=== PATIENT | female | born 1975 | race Two or more races ===

== ENCOUNTER 2020-06-02 15:55 | Emergency (ER) | payer MEDICAID, SELFPAY ==
[2020-06-02 16:18] VITALS: BP 133/82; PULSE 81; RESP 18; TEMP 36.9; O2SAT 100; BMI 23.8
[2020-06-02 17:06] LABS: Basophils Percent Auto 0.5 % (0-2); Eosinophils Absolute Auto 0.2 X10*3/uL (0.0-0.4); Eosinophils Percent Auto 2.8 % (0-4); Hematocrit 42.1 % (37-47); Hemoglobin 13.6 g/dl (12.0-16.0); Imm Gran Abs Auto 0.02 X10*3/uL (0.00-0.03); Imm Gran Pct Auto 0.3 % (0.0-0.4); Lymphocytes Absolute Auto 1.7 X10*3/uL (1.2-4.9); Lymphocytes Percent Auto 21.8 % (20-40); MANUAL DIFF FLAG NO; Mean Corpuscular HGB Conc 32.3 g/dl (31.0-35.0); Mean Corpuscular Hemoglobin 28.2 pg (27.0-33.0); Mean Corpuscular Volume 87.2 fL (80-98); Mean Platelet Volume 10.6 fL (9.4-12.3); Monocytes Absolute Auto 0.6 X10*3/uL (0.1-1.2); Monocytes Percent Auto 8.2 % (2-11); Neutrophils Absolute Auto 5.1 X10*3/uL (2.0-8.3); Neutrophils Percent Auto 66.4 % (45-73); Platelet Count 224 X10*3/uL (160-400); Red Blood Count 4.83 X10*6/uL (4.20-5.50); Red Cell Distribution Width 13.2 % (11.0-16.0); White Blood Count 7.7 X10*3/uL (4.8-10.8)
[2020-06-02 17:13] LABS: Glucose Urine UA NEG (NEG); Leukocyte Esterase Urine NEG (NEG); Nitrite Urine NEG (NEG); Specific Gravity - Urine >= 1.030 (1.005-1.025); Urine Blood TRACE (NEG); Urine Ketones 5 MG/DL (NEG); Urine Protein NEG (NEG-TRACE)
[2020-06-02 17:15] LABS: Appearance Urine CLEAR; Color Urine YELLOW
[2020-06-02 17:16] LABS: UPreg QC Valid YES; Urine Pregnancy NEGATIVE (NEGATIVE)
[2020-06-02 17:20] LABS: Bacteria Urine TRACE /LPF; Calcium Oxalate Crystals Urine 1+ /LPF; Squamous Epithelial Cell Urine 2+ /LPF; WBC Urine 0-2 /HPF (0-4)
[2020-06-02] MEDS: Magnesium Hydrox/Alum Hydrox 30 ML ORAL.SUSP PO (17:22)
--- NOTE | 2020-06-02 17:27 | PC.NURSE ---
MED WITH MAALOX FOR C/O ACID REFLUX.
--- NOTE | 2020-06-02 17:28 | ED.GENADULT ---
HPI - General Adult General Chief complaint: General Medical Stated complaint: arm pain Time Seen by Provider: 06/02/20 16:12 Source: patient Mode of arrival: ambulatory Limitations: no limitations History of Present Illness HPI narrative: States was doing some ADLs around the house suddenly started to feel numbness and tingling and started to hyperventilate like she was having a panic attack. States she had symptoms come out of nowhere however she has been increasingly stressed recently. She does have history of anxiety does take clonazepam. States she took 1 pill after episodes and symptoms have resolved at this time. No chest pain or shortness of breath. No recent illness. No cough runny nose. Onset (ago): minute(s) Severity: moderate Relieving factors: none Exacerbating factors: none Treatments prior to arrival: none Related Data Allergies Allergy/AdvReac Type Severity Reaction Status Date / Time No Known Allergies Allergy Verified 06/02/20 16:21 [No Known Allergies*] Review of Systems Review of Systems: Constitutional: No Weight loss, No Fever, No Chills, No Night Sweats, No Fatigue, No Malaise ENT/Mouth: No Hearing loss, No Ear Pain, No Nasal Congestion, No Sinus Pain, No Hoarseness, No sore throat, No Rhinorrhea, No Swallowing Difficulty Eyes: No Eye Pain, No Swelling, No Redness, No Foreign Body, No Discharge, No Vision Changes Cardiovascular: No Chest Pain, No SOB, No Dyspnea on Exertion, No Orthopnea, No Edema, No Palpitations Respiratory: No Cough, No Sputum, No Wheezing, No Smoke Exposure, No Dyspnea Gastrointestinal: No Nausea, No Vomiting, No Diarrhea, No Constipation, No abdominal Pain, No Hematochezia, No Melena Genitourinary: no irregular bleeding, No Dysuria, No Urinary Frequency, No Hematuria, No Urinary Incontinence, No Urgency, No Flank Pain Musculoskeletal: No joint pain, No Myalgias, No Joint Swelling Skin: No Skin Lesions, No rash Neuro: No Weakness, No Numbness, No Paresthesias, No Loss of Consciousness, No Dizziness, No Headache Psych: No Anxiety/Panic, No Depression, No SI/HI/AH/VH Heme/Lymph: No Bruising, No Bleeding,No Lymphadenopathy Endocrine: No Polyuria, No Polydipsia, No Temperature Intolerance Yes all other systems are reviewed and are negative [facility] Past Medical History Medical History (Updated 06/02/20 @ 17:39 by Sathish Pope NP) Anxiety Social History Social History Advance Directives: No Advance Directives Information Provided: No Physical Exam Vital Signs: Vital Signs: Last Vital Signs Temp 98.5 F 06/02/20 16:18 Pulse 81 06/02/20 16:18 Resp 18 06/02/20 16:18 BP 133/82 06/02/20 16:18 Pulse Ox 100 06/02/20 16:18 Body Mass Index 23.8 Reviewed Const: General: cooperative and healthy appearing; No acute distress or intoxicated appearing Nutritional Appearance: average body habitus Orientation/consciousness: patient oriented x3 HENMT: Head: Yes normal to inspection Ears: hearing grossly normal bilaterally Eyes: General: appearance normal, both eyes and all related structures Visual Katz: normal visual katz by confrontation Neck: Neck: Yes normal visual inspection, No positive Brudzinski's sign, No positive Kernig's sign and No tender Thyroid: Thyroid normal Chest: Chest palpation & inspection: normal inspection of the chest Resp: Effort & Inspection: normal respiratory effort Auscultation: clear to auscultation bilaterally Cardio: Jugular venous distension: no JVD Rhythm: regular rhythm Heart sounds: S1 normal heart sound present and S2 normal heart sound present GI: Inspection: Yes normal to inspection Palpation (GI): Soft to palpation Percussion: Yes normal to percussion Auscultation: normal bowel sounds : General: Yes no CVA tenderness Back/Spine/Pelvis: Back: no CVA tenderness Skin: General skin exam: no rashes or lesions noted Neuro: General: patient oriented x3 Extrem: General: Yes normal to inspection Course Course Course Narrative: Resting comfortably watching television Medical Decision Making Lab Data Result diagrams: 06/02/20 16:42 06/02/20 16:42 Labs: Lab Results 06/02/20 06/02/20 06/02/20 Range/Units 16:38 16:42 16:42 WBC 7.7 (4.8-10.8) X10*3/uL RBC 4.83 (4.20-5.50) X10*6/uL Hgb 13.6 (12.0-16.0) g/dl Hct 42.1 (37-47) % MCV 87.2 (80-98) fL MCH 28.2 (27.0-33.0) pg MCHC 32.3 (31.0-35.0) g/dl RDW 13.2 (11.0-16.0) % Plt Count 224 (160-400) X10*3/uL MPV 10.6 (9.4-12.3) fL Immature Gran % (Auto) 0.3 (0.0-0.4) % Neut % (Auto) 66.4 (45-73) % Lymph % (Auto) 21.8 (20-40) % [place] % (Auto) 8.2 (2-11) % Eos % (Auto) 2.8 (0-4) % Baso % (Auto) 0.5 (0-2) % Lymph # (Auto) 1.7 (1.2-4.9) X10*3/uL [place] # (Auto) 0.6 (0.1-1.2) X10*3/uL Eos # (Auto) 0.2 (0.0-0.4) X10*3/uL Baso # (Auto) 0.0 (0.0-0.2) X10*3/uL Abs Immat Gran (auto) 0.02 (0.00-0.03) X10*3/uL Absolute Neuts (auto) 5.1 (2.0-8.3) X10*3/uL Absolute Nucleated RBC 0.000 (0.0-0.012) X10*3/uL Nucleated RBC % (auto) 0.0 (0.0-0.2) /100WBC Sodium 139 (135-145) mmol/L Potassium 3.5 (3.3-5.1) mmol/l Chloride 103 (96-108) mmol/L Carbon Dioxide 27 (22-29) mmol/L Anion Gap 13 (12-20) BUN 14 (9-16) mg/dL Creatinine 0.77 (0.5-1.4) mg/dL Estim Creat Clear Calc 81.3 Estimated GFR > 60 Random Glucose 97 (60-115) mg/dL Calcium 9.2 (8.4-10.2) mg/dL Total Bilirubin 0.4 (0.0-1.0) mg/dL AST 16 (5-31) U/L ALT 17 (0-31) U/L Alkaline Phosphatase 87 (39-117) U/L Total Protein 6.9 (6.5-8.0) g/dL Albumin 4.3 (3.5-5.0) g/dL Urine Color YELLOW Urine Appearance CLEAR Urine pH 6.0 (5.0-8.0) Ur Specific [place] >= 1.030 H (1.005-1.025) Urine Protein NEG (NEG-TRACE) MG/DL Urine Glucose (UA) NEG (NEG) MG/DL Urine Ketones 5 (NEG) MG/DL Urine Blood TRACE (NEG) Urine Nitrite NEG (NEG) Ur Leukocyte Esterase NEG (NEG) Urine RBC 1-4 (0) /HPF Urine WBC 0-2 (0-4) /HPF Ur Squamous Epith Cells 2+ /LPF Calcium Oxalate Crystal 1+ /LPF Urine Bacteria TRACE /LPF Urine Test NEGATIVE (NEGATIVE) Discharge Plan Discharge Clinical Impression: Anxiety Patient Disposition: Home, Self-Care Instructions: Anxiety (ED) Additional Instructions: Supportive care Balanced diet [place] sleep cycle Avoid any caffeinated drinks or stimulants Take medication prescribed Return if any concerns or worsening symptoms otherwise follow up with primary care doctor instructed Thank you Referrals: Otilia Quiñones MD [Primary Care Provider] - 2 weeks
[2020-06-02 17:32] LABS: Alanine Aminotransferase 17 U/L (0-31); Albumin Level 4.3 g/dL (3.5-5.0); Alkaline Phosphatase 87 U/L (39-117); Anion Gap 13 (12-20); Aspartate Amino Transferase 16 U/L (5-31); Bilirubin Total 0.4 mg/dL (0.0-1.0); Blood Urea Nitrogen 14 mg/dL (9-16); Calcium 9.2 mg/dL (8.4-10.2); Carbon Dioxide 27 mmol/L (22-29); Chloride 103 mmol/L (96-108); Creatinine Clr Calc Pharmacy 81.3; Estimated Glomerular Filt Rate > 60; Glucose Random 97 mg/dL (60-115); Potassium 3.5 mmol/l (3.3-5.1); Sodium 139 mmol/L (135-145); Total Protein 6.9 g/dL (6.5-8.0)
[2020-06-02 17:41] LABS: Amphetamine Screen Urine Not Detected (Not Detect); Barbiturates, Urine Not Detected (Not Detect); Benzodiazepines Screen Urine Not Detected (Not Detect); Cannabinoid Screen Urine POSITIVE (Not Detect); Cocaine Screen Urine Not Detected (Not Detect); Opiate Screen Urine Not Detected (Not Detect); Phencyclidine Screen Urine Not Detected (Not Detect)
== END 2020-06-02 18:10 | disposition home or self-care (01) ==
PROVIDERS: Nurse Practitioner Primary Care; Emergency Provider Emergency Medicine Emergency Medical Services; PCP Pediatrics
DX: F41.1 Generalized anxiety disorder (principal); F43.0 Acute stress reaction; M79.602 Pain in left arm; M79.601 Pain in right arm
CPT/HCPCS: 36415; 80053; 80307; 81001; 81025; 85025; 99283; 99284

== ENCOUNTER → 2021-02-09 08:47 | Outpatient (BNVA) | payer MEDICAID, SELFPAY | PROVIDERS: PCP Pediatrics; Referring Provider Pediatrics; Visit Provider Surgery | DX: K64.4 Residual hemorrhoidal skin tags (principal); K64.8 Other hemorrhoids | CPT/HCPCS: 46600; 99202 ==

== ENCOUNTER 2023-01-04 10:32 | Outpatient (REF) | payer MEDICAID, SELFPAY ==
--- NOTE | ~2023-01-04 | MM_ITS ---
EXAMINATION: MM SCREENING DIGITAL BREAST TOMOSYNTHESIS, BILATERAL CLINICAL INFORMATION: Screening. Asymptomatic. The lifetime risk of breast cancer based on the Tyrer-Cuzick Model is 7.4%. COMPARISON: Mammography: This is a baseline study TECHNIQUE: Digital breast tomosynthesis is performed in both the craniocaudal and mediolateral oblique views along with computer-aided detection (CAD). Synthesized 2D images are generated from the tomosynthesis. FINDINGS: The breasts are heterogeneously dense, which may obscure small masses (ACR BI-RADS breast composition Category c). There are scattered calcifications in the upper outer quadrant of the left breast, some of the calcifications are in groups. Additional mammographic imaging of these calcifications with magnification is advised. There are grouped calcifications in the upper inner quadrant of the deep third of the right breast. Additional mammographic imaging with magnification of this region is advised. In the deep third of the upper inner quadrant of the left breast, there is a focal asymmetry for which additional mammographic imaging is advised. Targeted sonography may be performed at the discretion of the diagnostic radiologist. MM/MM tomosynthesis screening BI IMPRESSION: Bilateral calcifications warrant additional mammographic imaging magnification. Left breast focal asymmetry warrants additional mammographic imaging. ASSESSMENT: BI-RADS BI-RADS 0 - Incomplete: Needs additional Imaging. RECOMMENDATION: 1. Additional views of both breasts are advised. 2. Targeted ultrasound if warranted after review of the additional views. 3. Radiology department staff will contact the patient for additional imaging. Additional Imaging required This examination should not preclude the clinical evaluation of a suspicious palpable abnormality. This patient's information was entered into a reminder system with a target due date for their next mammogram.
== END 2023-01-04 10:33 | disposition home or self-care (01) ==
LOC: HO.MAMMO 10:32
PROVIDERS: PCP Pediatrics; Visit Provider Pediatrics
DX: Z12.31 Encounter for screening mammogram for malignant neoplasm of breast (principal)
CPT/HCPCS: 77063; 77067

== ENCOUNTER → 2023-01-04 11:00 | Outpatient (BNV) | payer MEDICAID, SELFPAY | PROVIDERS: PCP Pediatrics; Visit Provider Radiology Diagnostic Radiology | DX: Z12.31 Encounter for screening mammogram for malignant neoplasm of breast (principal) | CPT/HCPCS: 77063; 77067 ==

== ENCOUNTER 2023-02-12 11:16 | Outpatient (REF) | payer MEDICAID, SELFPAY ==
--- NOTE | ~2023-02-12 | US_ITS ---
EXAMINATION: MM DIAGNOSTIC DIGITAL BREAST TOMOSYNTHESIS, BILATERAL US BREAST LIMITED, LEFT MAMMOGRAPHY: CLINICAL INFORMATION: Patient has little information of family history of breast cancer. Complains of episodic breast pain. Bilateral diagnostic mammogram: Evaluate the following is seen on baseline screening exam: -Oval mass left breast 10:00 axis -Suspicious grouped calcifications upper inner LEFT breast, posterior one third. -Suspicious grouped calcifications 6:00 axis LEFT breast posterior one third. -Suspicious grouped calcifications (2 groups abutting) far medial upper RIGHT breast, posterior one third. COMPARISON: Mammography: Baseline screening mammography 01/04/2023 TECHNIQUE: Diagnostic bilateral mammography was obtained with the following views: Full-field 3-D left mediolateral view, 3-D spot compression left CC, and MLO views, as well as 2-D spot magnification left CC and ML views, and 2-D spot magnification right CC, XCCL, and ML views. FINDINGS: The breasts are heterogeneously dense, which may obscure small masses (ACR BI-RADS breast composition Category c). In the LEFT breast at the 10:00 axis, there is a 1.3 cm oval isodense circumscribed mass, 4 cm from the nipple. This will be evaluated by ultrasound. In the LEFT breast upper outer quadrant, posterior one third, there is a group of suspicious pleomorphic calcifications, for which stereotactic biopsy is recommended. In the LEFT breast 6:00 axis, posterior one third, there is a smaller group of suspicious pleomorphic calcifications, for which stereotactic biopsy is recommended. In the RIGHT breast, far medial and upper quadrant, posterior one third, there are 2 immediately abutting groups of pleomorphic calcifications for which stereotactic sampling of one group is recommended, at the discretion of the biopsy radiologist. These are presumably of the same etiology. There are scattered global calcifications in both breasts, some which layer on mediolateral views suggesting milk of calcium. ULTRASOUND: CLINICAL INFORMATION: Evaluate LEFT breast circumscribed 1.3 cm oval mass 10:00 axis. COMPARISON: None TECHNIQUE: Targeted sonographic evaluation left breast inner upper quadrant was performed using a high frequency linear transducer. Selected archived documentation. FINDINGS: LEFT BREAST: There is a simple cyst measuring 1.4 cm in the left breast 10:00 axis, 3 cm from the nipple, correlating with the abnormality seen on mammography. This is benign. No additional abnormalities noted. US/US breast LT limited mamm only IMPRESSION: 1. Bilateral suspicious indeterminate calcifications as detailed above, 2 groups in the left breast, and 2 abutting groups in the right breast, for which 3 site stereotactic biopsy (2 site LEFT, 1 site RIGHT) is recommended as detailed. 2. Simple cyst left breast, benign. 3. Findings and recommendations were discussed with the patient in detail, who agrees with the above plan. OVERALL ASSESSMENT: Mammography: BI-RADS 4 - Suspicious finding Ultrasound: BI-RADS 4 - Suspicious finding RECOMMENDATION: Biopsy recommended
== END 2023-02-12 11:17 | disposition home or self-care (01) ==
LOC: HO.MAMMO 11:16
PROVIDERS: PCP Pediatrics; Visit Provider Pediatrics
DX: R92.1 Mammographic calcification found on diagnostic imaging of breast (principal)
CPT/HCPCS: 76642; 77062; 77066

== ENCOUNTER → 2023-02-12 11:30 | Outpatient (BNV) | payer MEDICAID, SELFPAY | PROVIDERS: PCP Pediatrics; Visit Provider Radiology Diagnostic Radiology | DX: R92.1 Mammographic calcification found on diagnostic imaging of breast (principal); N60.02 Solitary cyst of left breast | CPT/HCPCS: 76642; 77062; 77066; G0279 ==

== ENCOUNTER 2023-03-01 09:11 | Outpatient (AMB) | payer MEDICAID, SELFPAY ==
--- NOTE | 2023-03-01 09:16 | MHC.OFFVIS ---
Intake Vital Signs 03/01/23 09:28 Height 5 ft 4 in Weight 142 lb 2 oz BMI 24.4 BP 119/66 Blood Pressure Location Lt brachial Position Sitting Pulse 82 Intake Visit Reasons: [facility] ST BX, RT 1 site, LT 2 sites - calcs Intake Note: Patient is seen in office for bilateral stereo biopsy consult, right 1 site & left 2 sites for calcifications. Patient c/o: does not feel lump or bump, has a dent on the right breast, has bilateral breast pain, denies redness, discharge, swelling, no prior breast surgery, no concerns to breast feeding Title I Teacher Required: No Psychiatric Attendant: Psychiatric Attendant Present Accompanied by: Other Relationship Allergies No Known Allergies [No Known Allergies*] Allergy (Verified 03/01/23 09:26) Medication List - Last Reconciled 03/01/23 by Yunier Bentley MD clonazepam 0.5 mg PO DAILY PRN HPI HPI Comments History of Present Illness Details 47-year-old female patient presenting with a baseline mammogram dated 01/04/2023 with additional images obtained 02/12/2023 which revealed bilateral suspicious cluster of calcifications. In the left breast 2 areas of suspicious calcification were identified in the 10 o'clock position and in the upper outer quadrant. In the right breast a suspicious cluster was noted in the upper outer quadrant as well. She reports bilateral breast pain which is been present for several months. She denies any skin changes or nipple discharge. She denies a previous history of breast problems or breast surgery. She is uncertain about family history but feels her grandmother had breast cancer. She is 3 para 4 including 1 set of twins. Her pregnancies were complicated by eclampsia. Her twins have special needs which require her care. She is scheduled for a stereotactic guided core biopsy x2 on the left side and x1 on the right side later today at the [facility]. [facility] Medical History Bleeding hemorrhoids Smoker Anxiety Surgical History History of tubal ligation H/O section Family History Maternal Grandmother Breast cancer Female Reproductive History Menstrual Age of Menarche: 14 Date of last menstrual period: 01/25/23 Total pregnancies: 4 Number of Living Children: 4 Review of Systems Const All systems reviewed & are unremarkable except as noted in HPI and below Denies chills, Denies fever(s), Denies headache(s), Denies poor appetite and Denies weakness ENT Denies headache(s) Card Denies chest pain, Denies irregular heart rhythm, Denies palpitations and Denies dyspnea Resp Denies cough, Denies excessive phlegm production and Denies dyspnea GI Denies abdominal pain, Denies bloating, Denies change in bowel habits, Denies constipation, Denies heartburn, Denies diarrhea, Denies nausea and Denies vomiting Denies urinary frequency Musc Denies back pain, Denies muscle weakness and Denies numbness Skin/Breast Denies changing lesions and Denies unusual bruising Neuro Denies headache(s), Denies numbness, Denies paresthesias and Denies weakness Psych Denies anxiety and Denies depression Endo Denies palpitations Wong/Lymph Denies lymphadenopathy Physical Exam Const General: cooperative and no acute distress Nutritional Appearance: well nourished Orientation/consciousness: patient oriented x3 Limitations: no limitations HEENT Head: Yes normocephalic and Yes atraumatic Ears: hearing grossly normal bilaterally Chest Other: Left breast: No skin change, no nipple retraction, no nipple discharge, no palpable mass, no enlarged lymph nodes. Right breast: No skin change, no nipple retraction, no nipple discharge, no palpable mass, no enlarged lymph nodes Bilateral areas of tenderness were noted mainly in the upper outer quadrants with no suspicious findings associated with the tenderness. Resp Effort & Inspection: normal respiratory effort, no audible wheezes, no cough and no respiratory distress Cardio Jugular venous distension: no JVD GI Inspection: Yes normal to inspection Skin Other: Warm, dry, no rash Neuro General: patient oriented x3 Extrem General: Yes no clubbing, cyanosis or edema Assessment & Plan Assessment & Plan (1) Abnormal mammogram of both breasts: Code(s): R92.8 - Other abnormal and inconclusive findings on diagnostic imaging of breast Plan 47-year-old female patient presenting with bilateral areas of suspicious calcifications felt to be high suspicion for malignancy. She is scheduled for bilateral stereotactic guided core biopsies later today at the [facility]. Examination today revealed no suspicious findings in either breast. I have asked her to return in 1 week to review the pathology results and discuss treatment options. She expressed understanding and agrees with the plan. Orders: Orders MM stereotactic biopsy RT Today R92.8 - Other abnormal and inconclusive findings on diagnostic imaging of breast MM stereotactic biopsy LT Today R92.8 - Other abnormal and inconclusive findings on diagnostic imaging of breast MM stereotactic biopsy ea add Today R92.8 - Other abnormal and inconclusive findings on diagnostic imaging of breast Coding Level of Care Code New Pt Level 4 (43557) Diagnoses Abnormal mammogram of both breasts R92.8
[2023-03-01 09:28] VITALS: BP 119/66; PULSE 82; BMI 24.4
== END 2023-03-01 09:45 | disposition home or self-care (01) ==
PROVIDERS: PCP Pediatrics; Visit Provider Surgery
DX: R92.8 Other abnormal and inconclusive findings on diagnostic imaging of breast (principal)
CPT/HCPCS: 99204

== ENCOUNTER 2023-03-01 09:53 | Outpatient (REF) | payer MEDICAID, SELFPAY ==
--- NOTE | ~2023-03-01 | MM_ITS ---
EXAMINATION: STEREOTACTIC TOMOSYNTHESIS-GUIDED VACUUM-ASSISTED BREAST BIOPSY, RIGHT SPECIMEN RADIOGRAPH, RIGHT POST PROCEDURE DIGITAL MAMMOGRAM, RIGHT CLINICAL INFORMATION: Suspicious calcifications posterior one third right breast approximate 3:00 axis. COMPARISON: 02/12/2023, 01/04/2023 TECHNIQUE/PROCEDURE: Informed consent was obtained from the patient after discussion of the benefits, risks, and alternatives to biopsy today. Patient appeared to understand. Gave opportunity for questions. Patient signed consent form. BIOPSY TABLE: [employer] Affirm Prone Biopsy System. LESION: Grouped slightly pleomorphic calcifications. LOCAL ANESTHESIA: 5 mL 1% lidocaine; 10 mL 1% lidocaine with epinephrine. DERMATOTOMY: Single skin mima dermatotomy performed. NEEDLE: [employer] 9-gauge vacuum assisted core biopsy device. APPROACH: craniocaudal. TARGETING: Combination of digital breast tomosynthesis and stereotactic digital mammography used for targeting. CORES: 7. CLIP: Top hat-shaped. SPECIMEN RADIOGRAPH: Specimen radiograph is taken in separate room using digital mammography. The index calcifications are in the excised cores. Only a couple residual calcifications remain adjacent to the clip. POST PROCEDURE UNILATERAL DIGITAL MAMMOGRAM: The post biopsy mammogram is performed in separate room using separate digital mammography equipment from the biopsy procedure. Right CC and ML views are taken. The breasts are heterogeneously dense, which may obscure small masses (breast composition category: c). The clip marker is in position. The calcifications near completely gone at the biopsy site. No gross hematoma. The patient tolerated the procedure well. No immediate complications. Home instructions reviewed with the patient. Final pathology results are pending. MM/MM stereotactic biopsy RT IMPRESSION: 1. Digital tomosynthesis-guided core biopsy right breast with clip placement. Nearly all of the index calcifications were removed. 2. Specimen radiograph taken and post procedure mammogram. There is satisfactory and accurate positioning of the top hat biopsy clip. 3. Final pathology results pending. An addendum report will be issued.
--- NOTE | ~2023-03-01 | MM_ITS ---
EXAMINATION: STEREOTACTIC TOMOSYNTHESIS-GUIDED VACUUM-ASSISTED BREAST BIOPSY, LEFT SPECIMEN RADIOGRAPH, LEFT POST PROCEDURE DIGITAL MAMMOGRAM, LEFT CLINICAL INFORMATION: Left breast with 2 SITES suspicious calcifications for biopsy, SITE A superiorly and laterally, SITE B medial slightly inferior left breast posterior one third. COMPARISON: 02/12/2023, 01/04/2023. TECHNIQUE/PROCEDURE: SITE A. Informed consent was obtained from the patient after discussion of the benefits, risks, and alternatives to biopsy today. Patient appeared to understand. Gave opportunity for questions. Patient signed consent form. BIOPSY TABLE: [employer] Affirm Prone Biopsy System. LESION: Pleomorphic microcalcifications upper outer left breast (SITE A). LOCAL ANESTHESIA: 5 mL 1% lidocaine; 10 mL 1% lidocaine with epinephrine. DERMATOTOMY: Single skin mima dermatotomy performed. NEEDLE: [employer] 9-gauge vacuum assisted core biopsy device. APPROACH: lateral medial. TARGETING: Combination of digital breast tomosynthesis and stereotactic digital mammography used for targeting. CORES: 7. CLIP: Top hat-shaped. SPECIMEN RADIOGRAPH: Specimen radiograph is taken in separate room using digital mammography. The nearly all index calcifications are in the excised cores. A few calcifications remain abutting the biopsy clip. POST PROCEDURE UNILATERAL DIGITAL MAMMOGRAM: The post biopsy mammogram is performed in separate room using separate digital mammography equipment from the biopsy procedure. CC and ML views are obtained. The breasts are heterogeneously dense, which may obscure small masses (breast composition category: c). The clip marker is in accurate and expected position. The calcifications are markedly decreased at the biopsy site. No gross hematoma. TECHNIQUE/PROCEDURE: SITE B. Informed consent was obtained from the patient after discussion of the benefits, risks, and alternatives to biopsy today. Patient appeared to understand. Gave opportunity for questions. Patient signed consent form. BIOPSY TABLE: [employer]ologic Affirm Prone Biopsy System. LESION: Small group of pleomorphic calcifications, lateral inferior left breast (SITE B). LOCAL ANESTHESIA: 3 mL 1% lidocaine; 5 mL 1% lidocaine with epinephrine. DERMATOTOMY: Single skin mima dermatotomy performed. NEEDLE: [employer] Eviva 9-gauge vacuum assisted core biopsy device. APPROACH: lateral medial. TARGETING: Combination of digital breast tomosynthesis and stereotactic digital mammography used for targeting. CORES: 5. CLIP: Cylinder-shaped. SPECIMEN RADIOGRAPH: Specimen radiograph is taken in separate room using digital mammography. The index calcifications are in the excised cores. Only a few tiny calcifications remain abutting the clip. POST PROCEDURE UNILATERAL DIGITAL MAMMOGRAM: The post biopsy mammogram is performed in separate room using separate digital mammography equipment from the biopsy procedure. Left CC and ML views are obtained. There are scattered areas of fibroglandular density (breast composition category: b). The clip marker is in position. The calcifications are markedly decreased at the biopsy site. No gross hematoma. The patient tolerated the procedure well. No immediate complications. Home instructions reviewed with the patient. Final pathology results are pending. MM/MM stereotactic biopsy ea add IMPRESSION: 1. Digital tomosynthesis-guided core biopsy 2 sites left breast with dual clip placement. 2. Specimen radiograph taken and post procedure mammogram. There is satisfactory and accurate positioning of the biopsy clip. 3. Final pathology results pending. An addendum report will be issued.
[2023-03-01] MEDS: Lidocaine HCl 1 % 20 ML VIAL 11 ML SUBCUT (12:46)
[2023-03-01] MEDS: Lidocaine HCl 1% PF/Epi 1:200,000 30 ML VIAL 47 ML SUBCUT (12:56)
[2023-03-01] MEDS: Sodium Bicarbonate 8.4% 50 MEQ/50 ML VIAL SUBCUT (12:57)
== END 2023-03-01 09:54 | disposition home or self-care (01) ==
LOC: HO.MAMMO 09:53
PROVIDERS: PCP Pediatrics; Visit Provider Surgery
DX: R92.8 Other abnormal and inconclusive findings on diagnostic imaging of breast (principal)
CPT/HCPCS: 19081; 19082; 88305; A4648

== ENCOUNTER → 2023-03-01 10:00 | Outpatient (BNV) | payer MEDICAID, SELFPAY | PROVIDERS: PCP Pediatrics; Visit Provider Radiology Diagnostic Radiology | DX: R92.1 Mammographic calcification found on diagnostic imaging of breast (principal); N60.21 Fibroadenosis of right breast | CPT/HCPCS: 19081; 19082 ==

== ENCOUNTER 2023-03-08 09:24 | Outpatient (AMB) | payer MEDICAID, SELFPAY ==
--- NOTE | 2023-03-08 09:36 | MHC.OFFVIS ---
Intake Vital Signs 03/08/23 09:49 Height 5 ft 4 in Weight 145 lb BMI 24.9 BP 107/67 Blood Pressure Location Lt brachial Pulse 73 Intake Visit Reasons: BX results RT 1 site, LT 2 sites - calcs Intake Note: Patient is seen in office for biopsy results of bilateral breast. Patient c/o: denies any concerns, here for results English Tutor Required: No Accompanied by: Self / Same As Patient Allergies No Known Allergies [No Known Allergies*] Allergy (Verified 03/08/23 09:48) HPI HPI Comments History of Present Illness Details 47-year-old female patient presenting with a baseline mammogram dated 01/04/2023 with additional images obtained 02/12/2023 which revealed bilateral suspicious cluster of calcifications. In the left breast 2 areas of suspicious calcification were identified in the 10 o'clock position and in the upper outer quadrant. In the right breast a suspicious cluster was noted in the upper outer quadrant as well. She reports bilateral breast pain which is been present for several months. She denies any skin changes or nipple discharge. She denies a previous history of breast problems or breast surgery. She is uncertain about family history but feels her grandmother had breast cancer. She is 3 para 4 including 1 set of twins. Her pregnancies were complicated by eclampsia. Her twins have special needs which require her care. She underwent stereotactic guided core biopsy times 3 and returns today to review pathology results. 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 She tolerated the procedure well and denies any ongoing breast symptoms. [facility] Medical History Bleeding hemorrhoids Smoker Anxiety Surgical History History of tubal ligation H/O section Family History Maternal Grandmother Breast cancer Female Reproductive History Menstrual Age of Menarche: 14 Review of Systems Const All systems reviewed & are unremarkable except as noted in HPI and below Denies chills, Denies fever(s), Denies headache(s), Denies poor appetite and Denies weakness ENT Denies headache(s) Card Denies chest pain, Denies irregular heart rhythm, Denies palpitations and Denies dyspnea Resp Denies cough, Denies excessive phlegm production and Denies dyspnea GI Denies abdominal pain, Denies bloating, Denies change in bowel habits, Denies constipation, Denies heartburn, Denies diarrhea, Denies nausea and Denies vomiting Denies urinary frequency Musc Denies back pain, Denies muscle weakness and Denies numbness Skin/Breast Denies changing lesions and Denies unusual bruising Neuro Denies headache(s), Denies numbness, Denies paresthesias and Denies weakness Psych Denies anxiety and Denies depression Endo Denies palpitations Wong/Lymph Denies lymphadenopathy Physical Exam Vital Signs: Last Vital Signs Pulse 73 03/08/23 09:49 BP 107/67 03/08/23 09:49 BMI result Body Mass Index 24.9 Const General: cooperative and no acute distress Nutritional Appearance: well nourished Orientation/consciousness: patient oriented x3 Limitations: no limitations HEENT Head: Yes normocephalic and Yes atraumatic Ears: hearing grossly normal bilaterally Chest Other: Exam deferred Resp Effort & Inspection: normal respiratory effort, no audible wheezes, no cough and no respiratory distress Cardio Jugular venous distension: no JVD GI Inspection: Yes normal to inspection Skin Other: Warm, dry, no rash Neuro General: patient oriented x3 Extrem General: Yes no clubbing, cyanosis or edema Assessment & Plan Assessment & Plan (1) Abnormal mammogram of both breasts: Code(s): R92.8 - Other abnormal and inconclusive findings on diagnostic imaging of breast Plan 47-year-old female patient presenting with bilateral areas of suspicious calcifications felt to be high suspicion for malignancy. She underwent bilateral stereotactic guided core biopsies last week at the [facility]. Pathology was reviewed with the patient today and a copy of the report provided. She tolerated the procedure well with no ongoing breast symptoms. She should follow up as needed. Coding Level of Care Code Est Pt Level 3 (33747) Diagnoses Abnormal mammogram of both breasts R92.8
[2023-03-08 09:49] VITALS: BP 107/67; PULSE 73; BMI 24.9
== END 2023-03-08 09:50 | disposition home or self-care (01) ==
PROVIDERS: PCP Pediatrics; Visit Provider Surgery
DX: R92.8 Other abnormal and inconclusive findings on diagnostic imaging of breast (principal)
CPT/HCPCS: 99213

== ENCOUNTER → 2023-03-08 09:24 | Outpatient (BNVA) | payer MEDICAID, SELFPAY | PROVIDERS: PCP Pediatrics; Visit Provider Surgery | DX: R92.8 Other abnormal and inconclusive findings on diagnostic imaging of breast (principal) | CPT/HCPCS: 99212 ==

== ENCOUNTER 2023-07-03 11:00 | Outpatient (REF) | payer MEDICAID, SELFPAY ==
[2023-07-03 14:26] LABS: MANUAL DIFF FLAG NO
[2023-07-03 14:30] LABS: Basophils Absolute Auto 0.1 X10*3/uL (0.0-0.2); Basophils Percent Auto 0.6 % (0-2); Eosinophils Absolute Auto 0.3 X10*3/uL (0.0-0.4); Hematocrit 39.5 % (37.0-47.0); Hemoglobin 12.9 g/dl (12.0-16.0); Imm Gran Abs Auto 0.03 X10*3/uL (0.00-0.03); Imm Gran Pct Auto 0.4 % (0.0-0.4); Lymphocytes Absolute Auto 1.7 X10*3/uL (1.2-4.9); Lymphocytes Percent Auto 19.6 % (20-40); Mean Corpuscular HGB Conc 32.7 g/dl (31.0-35.0); Mean Corpuscular Hemoglobin 26.9 pg (27.0-33.0); Mean Corpuscular Volume 82.5 fL (80.0-98.0); Mean Platelet Volume 11.9 fL (9.4-12.3); Monocytes Absolute Auto 0.6 X10*3/uL (0.1-1.2); Monocytes Percent Auto 7.5 % (2-11); Neutrophils Absolute Auto 5.8 x10*3/uL (2.0-8.3); Neutrophils Percent Auto 67.9 % (45-73); Platelet Count 201 X10*3/uL (160-400); Red Blood Count 4.79 X10*6/uL (4.20-5.50); Red Cell Distribution Width 14.1 % (11.0-16.0); White Blood Count 8.5 X10*3/uL (4.8-10.8)
[2023-07-04 04:14] LABS: HIV AB/AG Nonreactive (Nonreactive); HIV Num 1 0.04 S/CO (0.00-0.99); ~HepC Num1 0.15 S/CO (0.00-0.79); ~Hepatitis C Antibody Nonreactive (Nonreactive)
[2023-07-04 12:24] LABS: RPR Rapid Plasma Reagin NON-REACTIVE (NON-REACTIVE)
[2023-07-05 08:24] LABS: C. trachomatis RNA TMA NOT DETECTED (NOT DETECTED); N. gonorrhoeae RNA TMA NOT DETECTED (NOT DETECTED)
== END 2023-07-03 11:01 | disposition home or self-care (01) ==
LOC: HO.CHCLDS 11:00
PROVIDERS: Visit Provider Pediatrics
DX: Z11.3 Encounter for screening for infections with a predominantly sexual mode of transmission (principal)
CPT/HCPCS: 36415; 85025; 86592; 86803; 87389; 87491; 87591

== ENCOUNTER 2023-07-31 10:54 | Outpatient (AMB) | payer MEDICAID, SELFPAY ==
--- NOTE | 2023-07-31 11:03 | A.OFFVIS_ITS ---
Intake Vital Signs 07/31/23 11:07 Height 5 ft 4 in Weight 145 lb BMI 24.9 BP 109/70 Blood Pressure Location Lt brachial Position Sitting Pulse 84 Intake Visit Reasons: prolapsed hemorrhoids Intake Note: This patient presents for an assessment for prolapsed hemorrhoids. Pt c/o; reports pain, reports rectal bleeding. Web Design Instructor Required: No Accompanied by: Self / Same As Patient Allergies No Known Allergies [No Known Allergies*] Allergy (Verified 07/31/23 11:09) Medication List - Last Reconciled 07/31/23 by En Conrad MD clonazepam 0.5 mg PO DAILY PRN HPI prolapsed hemorrhoids HPI Details 48-year-old female here for chronic hemo rrhoid issues. I had actually seen her in 2020 for pain, bleeding and swelling over hemorrhoids. At that time, she had decided to undergo hemorrhoidectomy but she apparently had canceled this. She describes worsening of her had issues with frequent swelling and pain. She also occasionally bleeds She denies being constipated . She says she started to have hemorrhoid issues after she had about 16 years ago. She also says that hemorrhoids seemed to be much bigger now. [facility] Medical History (Updated 07/31/23 @ 11:41 by En Conrad MD) Prolapsed hemorrhoids Bleeding hemorrhoids Smoker Anxiety Surgical History History of tubal ligation H/O section Family History Maternal Grandmother Breast cancer Female Reproductive History Menstrual Age of Menarche: 14 Review of Systems Const Denies chills and Denies fever(s) Card Denies chest pain, Denies dyspnea and Denies dyspnea on exertion Resp Denies cough, Denies dyspnea and Denies dyspnea on exertion GI Reports hematochezia and Denies change in bowel habits Denies hematuria Musc Denies back pain and Denies limited range of motion Neuro Denies focal weakness and Denies convulsions Psych Denies depression and Denies mood swings Physical Exam Vital Signs: Last Vital Signs Pulse 84 07/31/23 11:07 BP 109/70 07/31/23 11:07 BMI result Body Mass Index 24.9 Const General: comfortable and no acute distress Orientation/consciousness: patient oriented x3 Neck Neck: Yes no lymphadenopathy Resp Auscultation: clear to auscultation bilaterally Cardio Rhythm: regular rhythm GI Other: rectal exam - large mixed hemorrhoids, external and prolapsed internal, multiple columns seen, digital exam deferred for now because of discomfort Palpation (GI): Soft to palpation, nontender and no guarding Neuro General: patient oriented x3 Assessment & Plan Assessment & Plan (1) Prolapsed hemorrhoids: Code(s): K64.8 - Other hemorrhoids Plan: She has large internal and external hemorrhoidal columns with prolapse, frequent pain, bleeding and swelling. She now wants to proceed with hemorrhoidectomy. I had a long discussion with her about the technique of exam under anesthesia and hemorrhoidectomy. I discussed the risks including but not limited to bleeding, infections, postop pain and poor healing, as well as the benefits and alternatives. I described to her what to expect postoperatively She says she wants to proceed with hemorrhoidectomy this time. Coding Level of Care Code Est Pt Level 3 (80820) Diagnoses Prolapsed hemorrhoids K64.8
[2023-07-31 11:07] VITALS: BP 109/70; PULSE 84; BMI 24.9
== END 2023-07-31 11:34 | disposition home or self-care (01) ==
PROVIDERS: PCP Pediatrics; Visit Provider Surgery
DX: K64.8 Other hemorrhoids (principal)
CPT/HCPCS: 99214

== ENCOUNTER → 2023-07-31 10:54 | Outpatient (BNVA) | payer MEDICAID, SELFPAY | PROVIDERS: PCP Pediatrics; Visit Provider Surgery | DX: K64.8 Other hemorrhoids (principal) | CPT/HCPCS: 99212 ==

== ENCOUNTER 2023-10-31 11:09 | Outpatient (REF) | payer MEDICAID, SELFPAY ==
[2023-10-31 14:36] LABS: MANUAL DIFF FLAG NO
[2023-10-31 14:47] LABS: Basophils Percent Auto 0.7 % (0-2); Eosinophils Absolute Auto 0.3 X10*3/uL (0.0-0.4); Eosinophils Percent Auto 5.2 % (0-4); Hematocrit 38.7 % (37.0-47.0); Hemoglobin 12.5 g/dl (12.0-16.0); Imm Gran Abs Auto 0.03 X10*3/uL (0.00-0.03); Imm Gran Pct Auto 0.5 % (0.0-0.4); Lymphocytes Absolute Auto 1.4 X10*3/uL (1.2-4.9); Lymphocytes Percent Auto 24.5 % (20-40); Mean Corpuscular HGB Conc 32.3 g/dl (31.0-35.0); Mean Corpuscular Hemoglobin 26.2 pg (27.0-33.0); Mean Platelet Volume 12.2 fL (9.4-12.3); Monocytes Absolute Auto 0.4 X10*3/uL (0.1-1.2); Monocytes Percent Auto 6.8 % (2-11); Neutrophils Absolute Auto 3.5 x10*3/uL (2.0-8.3); Neutrophils Percent Auto 62.3 % (45-73); Platelet Count 219 X10*3/uL (160-400); Red Blood Count 4.78 X10*6/uL (4.20-5.50); Red Cell Distribution Width 14.6 % (11.0-16.0); White Blood Count 5.6 X10*3/uL (4.8-10.8)
[2023-10-31 15:13] LABS: Anion Gap 11 (12-20); Blood Urea Nitrogen 8 mg/dL (9-16); Calcium 9.5 mg/dL (8.4-10.2); Carbon Dioxide 27 mmol/L (22-29); Chloride 105 mmol/L (96-108); Cholesterol 137 mg/dL (<200); Estimated Glomerular Filt Rate > 60; Glucose Fasting 89 mg/dL (60-99); HDL Cholesterol 48 mg/dL (>40); LDL Cholesterol Calculated 72 mg/dL (<100); Potassium 4.3 mmol/L (3.3-5.1); Sodium 139 mmol/L (135-145); Triglycerides 89 mg/dL (<150)
[2023-10-31 15:32] LABS: TSH reflex Free T4 0.39 uIU/mL (0.32-4.0); Vitamin D 25-OH Total 24.9 ng/mL (>30)
[2023-10-31 16:10] LABS: CT PCR NOT DETECTED (Not Detect.); NG PCR NOT DETECTED (Not Detect.)
[2023-11-01 08:13] LABS: HIV AB/AG Nonreactive (Nonreactive); HIV Num 1 0.06 S/CO (0.00-0.99); ~Hepatitis C Antibody Nonreactive (Nonreactive)
[2023-11-01 08:19] LABS: Syphilis Screen Nonreactive (Nonreactive)
== END 2023-10-31 11:10 | disposition home or self-care (01) ==
LOC: HO.CHCLDS 11:09
PROVIDERS: Visit Provider Pediatrics
DX: Z11.3 Encounter for screening for infections with a predominantly sexual mode of transmission (principal); E55.9 Vitamin D deficiency, unspecified; K64.8 Other hemorrhoids; I83.893 Varicose veins of bilateral lower extremities with other complications
CPT/HCPCS: 0353U; 36415; 80048; 80061; 82306; 84443; 85025; 86780; 86803; 87389

== ENCOUNTER 2024-04-16 10:52 | Emergency (ER) | payer MEDICAID, SELFPAY ==
--- NOTE | ~2024-04-16 | XR_ITS ---
EXAMINATION: XR CERVICAL SPINE CLINICAL INFORMATION: Neck pain. COMPARISON: None available. TECHNIQUE: AP, lateral, open-mouth, and foraminal views of the cervical spine were obtained. FINDINGS: Straightening of the normal cervical lordosis which may be positional related to muscular spasm. No acute fracture or subluxation. Normal atlantoaxial alignment. Minimal loss of intervertebral disc height with anterior endplate osteophytes at C3-C6. No concerning lytic or blastic osseous lesion. Unremarkable prevertebral soft tissues. XR/XR cervical spine 3V IMPRESSION: 1. Straightening of the normal cervical lordosis which may be positional related to muscular spasm. 2. Mild degenerative disc disease at C3-C6. Electronically signed by: Randy Maria MD 04/16/2024 03:08 PM [facility] [place]
--- NOTE | ~2024-04-16 | XR_ITS ---
EXAMINATION: XR CHEST 2 VIEW CLINICAL INFORMATION: Chest pain COMPARISON: 08/27/2013 TECHNIQUE: PA and lateral views of the chest obtained. FINDINGS: The lungs are clear. There are no pleural effusions. The cardiomediastinal silhouette is normal. XR/XR chest 2V IMPRESSION: No acute cardiopulmonary disease. Electronically signed by: Ike Roman MD 04/16/2024 02:08 PM [facility] [place]
--- NOTE | ~2024-04-16 | XR_ITS ---
EXAMINATION: XR THORACIC SPINE CLINICAL INFORMATION: Upper back pain. COMPARISON: None available. TECHNIQUE: 3 views of the thoracic spine were obtained. FINDINGS: There is no fracture or bone destruction seen and the vertebral alignment is normal. There is no disc space narrowing. There is no abnormality of the paraspinal soft tissues. XR/XR thoracic spine 3V IMPRESSION: Unremarkable examination. Electronically signed by: Randy Maria MD 04/16/2024 02:42 PM [facility]
--- NOTE | 2024-04-16 10:53 | ECG_ITS ---
Test Reason : chest pain Blood Pressure : / mmHG Vent. Rate : 062 BPM Atrial Rate : 062 BPM P-R Int : 142 ms QRS Dur : 086 ms QT Int : 418 ms P-R-T Axes : 073 049 039 degrees QTc Int : 424 ms Normal sinus rhythm Possible Left atrial enlargement Borderline ECG When compared with ECG of 27-AUG-2013 09:21, No significant change was found Referred By: Generic ED Physician Electronically Signed By:Marvin Mckenzie
[2024-04-16 11:11] VITALS: BP 125/79; PULSE 73; RESP 20; TEMP 36.6; O2SAT 100; BMI 25.7
--- NOTE | 2024-04-16 11:12 | ED_ITS ---
HPI - Chest Pain General Chief Complaint: Chest Pain Stated Complaint: cp Related Data Home Medications ?Medication ?Instructions ?Recorded ?Confirmed clonazepam 0.5 mg tablet 0.5 mg PO DAILY PRN anxiety attack 02/09/21 03/01/23 Previous Rx's ?Medication ?Instructions ?Recorded omeprazole 40 mg capsule,delayed 40 mg PO DAILY #20 caps 04/24/24 release ondansetron 4 mg disintegrating 4 mg PO Q6-8H PRN nausea and 04/24/24 tablet vomiting #7 tabs Allergies Allergy/AdvReac Type Severity Reaction Status Date / Time No Known Allergies Allergy Verified 04/23/24 20:19 [No Known Allergies*] [facility] Past Medical History Medical History Prolapsed hemorrhoids Bleeding hemorrhoids Smoker Anxiety Surgical History History of tubal ligation H/O section Family History Family History Maternal Grandmother Breast cancer Social History Social History Smoked in Last 30 Days: Yes Use of substances other than those prescribed or required for medical reasons: Yes Substance Use Type: Marijuana Substance Use Frequency Other:: quit smoking Marijuana about 3 weeks ago Advance Directives: No Advance Directives Information Provided: No Do you have a plan to hurt others: No Plan Physical Exam 2 Vital Signs: Vital Signs: Last Vital Signs Temp 97.8 F 04/16/24 11:11 Pulse 73 04/16/24 11:11 Resp 20 04/16/24 11:11 BP 125/79 04/16/24 11:11 Pulse Ox 100 04/16/24 11:11 O2 Del Method Room Air 04/16/24 11:11 BMI result Body Mass Index 25.7 Course Course Course Narrative: This is a Rapid Medical Exam performed in triage by Melissa Mascorro PA-C. Full HPI, ROS and PE to be performed by primary ED provider. 48-year-old female presenting to the ED c/o chest pain/pressure radiating to back and left side of neck x1 year worse x yesterday. tried Bengay w/o relief. denies recent neck manipulation/MVA/chiropractor. States saw PCP last week and was told they were going to obtain x-rays PE: Pain not reproducible on exam. Plan: EKG, labs, x-rays Medical Decision Making Lab Data 04/16/24 11:27 04/16/24 11:27 Labs: Lab Results 04/16/24 Range/Units 11:27 WBC 7.8 (4.8-10.8) X10*3/uL RBC 5.02 (4.20-5.50) X10*6/uL Hgb 12.9 (12.0-16.0) g/dl Hct 40.1 (37.0-47.0) % MCV 79.9 L (80.0-98.0) fL MCH 25.7 L (27.0-33.0) pg MCHC 32.2 (31.0-35.0) g/dl RDW 14.3 (11.0-16.0) % Plt Count 189 (160-400) X10*3/uL MPV 10.9 (9.4-12.3) fL Immature Gran % (Auto) 0.3 (0.0-0.4) % Neut % (Auto) 72.9 (45-73) % Lymph % (Auto) 16.4 L (20-40) % [place] % (Auto) 6.3 (2-11) % Eos % (Auto) 3.6 (0-4) % Baso % (Auto) 0.5 (0-2) % Lymph # (Auto) 1.3 (1.2-4.9) X10*3/uL [place] # (Auto) 0.5 (0.1-1.2) X10*3/uL Eos # (Auto) 0.3 (0.0-0.4) X10*3/uL Baso # (Auto) 0.0 (0.0-0.2) X10*3/uL Abs Immat Gran (auto) 0.02 (0.00-0.03) X10*3/uL Absolute Neuts (auto) 5.7 (2.0-8.3) x10*3/uL Absolute Nucleated RBC 0.000 (0.0-0.012) X10*3/uL Nucleated RBC % (auto) 0.0 (0.0-0.2) /100WBC Sodium 135 (135-145) mmol/L Potassium 3.9 (3.3-5.1) mmol/L Chloride 105 (96-108) mmol/L Carbon Dioxide 24 (22-29) mmol/L Anion Gap 10 L (12-20) BUN 9 (9-16) mg/dL Creatinine 0.69 (0.5-1.4) mg/dL Estim Creat Clear Calc 91.9 Estimated GFR > 60 Random Glucose 95 (60-115) mg/dL Calcium 8.9 D (8.4-10.2) mg/dL Troponin I High Sens < 2.7 (<3.5-17.0) ng/L Discharge Plan Discharge Clinical Impression: Chest pain Patient Disposition: Left W/O Completing Treatment Prescriptions: No Action omeprazole 40 mg capsule,delayed release(DR/EC) 40 mg PO DAILY Qty: 20 0RF ondansetron 4 mg tablet,disintegrating 4 mg PO Q6-8H PRN (Reason: nausea and vomiting) Qty: 7 0RF clonazepam 0.5 mg tablet 0.5 mg PO DAILY PRN (Reason: anxiety attack) Discharge Date/Time: 04/16/24 16:48
[2024-04-16 11:32] LABS: MANUAL DIFF FLAG NO
[2024-04-16 11:36] LABS: Basophils Percent Auto 0.5 % (0-2); Eosinophils Absolute Auto 0.3 X10*3/uL (0.0-0.4); Eosinophils Percent Auto 3.6 % (0-4); Hematocrit 40.1 % (37.0-47.0); Hemoglobin 12.9 g/dl (12.0-16.0); Imm Gran Abs Auto 0.02 X10*3/uL (0.00-0.03); Imm Gran Pct Auto 0.3 % (0.0-0.4); Lymphocytes Absolute Auto 1.3 X10*3/uL (1.2-4.9); Lymphocytes Percent Auto 16.4 % (20-40); Mean Corpuscular HGB Conc 32.2 g/dl (31.0-35.0); Mean Corpuscular Hemoglobin 25.7 pg (27.0-33.0); Mean Corpuscular Volume 79.9 fL (80.0-98.0); Mean Platelet Volume 10.9 fL (9.4-12.3); Monocytes Absolute Auto 0.5 X10*3/uL (0.1-1.2); Monocytes Percent Auto 6.3 % (2-11); Neutrophils Absolute Auto 5.7 x10*3/uL (2.0-8.3); Neutrophils Percent Auto 72.9 % (45-73); Platelet Count 189 X10*3/uL (160-400); Red Blood Count 5.02 X10*6/uL (4.20-5.50); Red Cell Distribution Width 14.3 % (11.0-16.0); White Blood Count 7.8 X10*3/uL (4.8-10.8)
[2024-04-16 11:50] LABS: Anion Gap 10 (12-20); Blood Urea Nitrogen 9 mg/dL (9-16); Calcium 8.9 mg/dL (8.4-10.2); Carbon Dioxide 24 mmol/L (22-29); Chloride 105 mmol/L (96-108); Creatinine Clr Calc Pharmacy 91.9; Estimated Glomerular Filt Rate > 60; Glucose Random 95 mg/dL (60-115); Potassium 3.9 mmol/L (3.3-5.1); Sodium 135 mmol/L (135-145)
[2024-04-16 11:55] LABS: Troponin-I High Sensitivity < 2.7 ng/L (<3.5-17.0)
== END 2024-04-16 16:48 | disposition left against medical advice (07) ==
PROVIDERS: Physician Assistant; Emergency Provider Student in an Organized Health Care Education/Training Program; PCP Pediatrics
DX: R07.89 Other chest pain (principal); M54.2 Cervicalgia; M54.6 Pain in thoracic spine; Z87.891 Personal history of nicotine dependence; Z79.899 Other long term (current) drug therapy
CPT/HCPCS: 36415; 71046; 72040; 72072; 80048; 84484; 85025; 93005; 99281; 99283

== ENCOUNTER → 2024-04-16 10:53 | Outpatient (BNV) | payer MEDICAID, SELFPAY | PROVIDERS: Emergency Provider Student in an Organized Health Care Education/Training Program; PCP Pediatrics; Visit Provider Internal Medicine Cardiovascular Disease | DX: R07.9 Chest pain, unspecified (principal); R94.31 Abnormal electrocardiogram [ECG] [EKG] | CPT/HCPCS: 93010 ==

== ENCOUNTER 2024-04-23 20:06 | Emergency (ER) | payer MEDICAID, SELFPAY ==
--- NOTE | 2024-04-23 | ECG_ITS ---
Test Reason : CHEST PAIN/ABD PAIN Blood Pressure : / mmHG Vent. Rate : 070 BPM Atrial Rate : 070 BPM P-R Int : 154 ms QRS Dur : 088 ms QT Int : 428 ms P-R-T Axes : 069 062 054 degrees QTc Int : 462 ms Normal sinus rhythm Possible Left atrial enlargement Borderline ECG When compared with ECG of 16-APR-2024 10:55, No significant change was found Referred By: Reinier Boyd Electronically Signed By:TAIWO MARTINEZ MD
--- NOTE | ~2024-04-23 | US_ITS ---
EXAMINATION: US ABDOMEN LIMITED CLINICAL INFORMATION: Upper abdominal pain. COMPARISON: None available. TECHNIQUE: Real-time imaging of the right upper quadrant abdominal viscera. FINDINGS: GALLBLADDER: The gallbladder is physiologically distended without evidence of stones, sludge, polyps, wall thickening or pericholecystic fluid. Marcelo's sign is negative COMMON BILE DUCT: Normal in caliber measuring 0.5 cm in diameter. US/US abdomen limited IMPRESSION: Normal-appearing gallbladder. Electronically signed by: Portillo Mcduffie MD 04/23/2024 11:02 PM [facility]
[2024-04-23 20:15] VITALS: BP 157/93; BP 168/89; PULSE 72; PULSE 75; RESP 16; TEMP 36.9; O2SAT 97; O2SAT 98; BMI 25.5
--- NOTE | 2024-04-23 20:22 | ED.ABDPAIN ---
HPI - Abdominal Pain General Chief Complaint: Abdominal Pain Stated Complaint: chest pain,abd pain,vomiting Time Seen by Provider: 04/23/24 20:12 Source: patient Mode of arrival: ambulatory Limitations: no limitations History of Present Illness ED Provider: sheldon OBANDO narrative: patient complaining of epigastric pain for last 1 week nausea and started vomiting since 3 p.m.multiple times no history of peptic ulcer disease no history of gallstone patient was having burning and chest for last 1 not on any PPI does have history of anxiety Related Data Home Medications ?Medication ?Instructions ?Recorded ?Confirmed clonazepam 0.5 mg tablet 0.5 mg PO DAILY PRN anxiety attack 02/09/21 03/01/23 Previous Rx's ?Medication ?Instructions ?Recorded omeprazole 40 mg capsule,delayed 40 mg PO DAILY #20 caps 04/24/24 release ondansetron 4 mg disintegrating 4 mg PO Q6-8H PRN nausea and 04/24/24 tablet vomiting #7 tabs Allergies Allergy/AdvReac Type Severity Reaction Status Date / Time No Known Allergies Allergy Verified 04/23/24 20:19 [No Known Allergies*] Review of Systems Review of Systems Yes all other systems are reviewed and are negative PMF Past Medical History Medical History Prolapsed hemorrhoids Bleeding hemorrhoids Smoker Anxiety Surgical History History of tubal ligation H/O section Family History Family History Maternal Grandmother Breast cancer Social History Social History Smoked in Last 30 Days: Yes Use of substances other than those prescribed or required for medical reasons: Yes Substance Use Type: Marijuana Substance Use Frequency Other:: quit smoking Marijuana about 3 weeks ago Advance Directives: No Advance Directives Information Provided: No Do you have a plan to hurt others: No Plan Physical Exam ED Vital Signs: Vital Signs - 24 hr 04/23/24 20:15 04/23/24 23:39 04/24/24 00:49 Temperature 98.5 F 98.4 F 98.4 F Pulse Rate 72 77 77 Respiratory Rate 16 14 14 Blood Pressure 157/93 H 95/59 L 95/59 L Pulse Oximetry 98 98 98 Oxygen Delivery Method Room Air Room Air Room Air BMI result Body Mass Index 25.5 Appearance: Alert. Oriented X3. No acute distress. Eyes: no pallor or icterus ENT: Pharynx normal. Oral Mucosa moist Neck: Normal inspection. Neck supple. CVS: Normal heart rate and rhythm. Pulses normal. Respiratory: No respiratory distress. Equal air entry bilateral, no wheezing/rales/rhonchi Abdomen: Soft and tenderness in right upper quadrant and epigastric area no rebound tenderness or guarding Bowel sounds are present, no mass palpable, no CVA tenderness Skin: Skin warm and dry. Normal skin color. Normal skin turgor. Extremities: No lower extremity edema. No calf tenderness Neuro: Oriented X 3. Medical Decision Making Medical Decision Making [facility] Narrative: patient has epigastric pain with history of anxiety ultrasound negative for any acute pathology will discharge patient home on Prilosec for gastric Differential Diagnosis Differential Diagnoses: The differential diagnosis associated with the presentation includes gastritis/pancreatitis/UTI / anxiety Lab Data [facility] Lab Attestation statement: I reviewed the patient's lab results. 04/23/24 20:51 04/23/24 20:51 Labs: Lab Results 04/23/24 04/24/24 Range/Units 20:51 00:22 WBC 7.6 (4.8-10.8) X10*3/uL RBC 4.61 (4.20-5.50) X10*6/uL Hgb 12.2 (12.0-16.0) g/dl Hct 36.2 L (37.0-47.0) % MCV 78.5 L (80.0-98.0) fL MCH 26.5 L (27.0-33.0) pg MCHC 33.7 (31.0-35.0) g/dl RDW 14.1 (11.0-16.0) % Plt Count 189 (160-400) X10*3/uL MPV 11.1 (9.4-12.3) fL Immature Gran % (Auto) 0.4 (0.0-0.4) % Neut % (Auto) 87.7 H (45-73) % Lymph % (Auto) 7.5 L (20-40) % [place] % (Auto) 3.8 (2-11) % Eos % (Auto) 0.3 (0-4) % Baso % (Auto) 0.3 (0-2) % Lymph # (Auto) 0.6 L (1.2-4.9) X10*3/uL [place] # (Auto) 0.3 (0.1-1.2) X10*3/uL Eos # (Auto) 0.0 (0.0-0.4) X10*3/uL Baso # (Auto) 0.0 (0.0-0.2) X10*3/uL Abs Immat Gran (auto) 0.03 (0.00-0.03) X10*3/uL Absolute Neuts (auto) 6.6 (2.0-8.3) x10*3/uL Absolute Nucleated RBC 0.000 (0.0-0.012) X10*3/uL Nucleated RBC % (auto) 0.0 (0.0-0.2) /100WBC Sodium 138 (135-145) mmol/L Potassium 3.3 (3.3-5.1) mmol/L Chloride 105 (96-108) mmol/L Carbon Dioxide 23 (22-29) mmol/L Anion Gap 13 (12-20) BUN 9 (9-16) mg/dL Creatinine 0.65 (0.5-1.4) mg/dL Estim Creat Clear Calc 97.2 Estimated GFR > 60 Random Glucose 128 H (60-115) mg/dL Calcium 9.5 D (8.4-10.2) mg/dL Total Bilirubin 0.5 (0.0-1.0) mg/dL AST 17 (5-31) U/L ALT 12 (0-31) U/L Alkaline Phosphatase 73 (39-117) U/L Troponin I High Sens < 2.7 (<3.5-17.0) ng/L Total Protein 7.1 (6.5-8.0) g/dL Albumin 4.3 (3.5-5.0) g/dL Urine Color Yellow Urine Appearance Clear Urine pH 6.0 (5.0-9.0) Ur Specific [place] >= 1.030 H (1.005-1.025) Urine Protein 30 (1+) H (Neg-Trace) mg/dL Urine Glucose (UA) Negative (Negative) mg/dL Urine Ketones >=160 (Negative) mg/dL Urine Blood Moderate (2+) H (Negative) Urine Nitrite Negative (Negative) Ur Leukocyte Esterase Negative (Negative) Urine RBC 3-5 H (0-2) /HPF Urine WBC 0-5 (0-5) /HPF Ur Squamous Epith Cells 3-5 (0-2) /HPF Urine Bacteria Trace (None Seen) Hyaline Casts 0-2 (0-2) /LPF Urine Opiates Screen POSITIVE H (Not Detect) Ur Buprenorphine Scrn Not Detected (Not Detect) ng/mL Ur Oxycodone Screen Not Detected (Not Detect) ng/mL Urine Methadone Screen Not Detected (Not Detect) ng/mL Urine Fentanyl Screen Not Detected (Not Detect) Ur Barbiturates Screen Not Detected (Not Detect) Ur Phencyclidine Scrn Not Detected (Not Detect) Ur Amphetamines Screen Not Detected (Not Detect) U Benzodiazepines Scrn Not Detected (Not Detect) Urine Cocaine Screen Not Detected (Not Detect) U Marijuana (THC) Screen POSITIVE H (Not Detect) Independent Interpretation I performed an independent interpretation of an: Ultrasound Radiology Impression Discussion of test interpretation with radiology: I have reviewed the radiologist's reading. Radiologist Impression: US/US abdomen limited IMPRESSION: Normal-appearing gallbladder. Electronically signed by: Portillo Mcduffie MD 04/23/2024 11:02 PM [facility] [place]ations Administered Discontinued Medications Generic Name Dose Route Start Last Admin Trade Name Freq PRN Reason Stop Dose Admin Sodium Chloride 1,000 mls @ 999 mls/hr 04/23/24 21:11 04/23/24 22:53 Ns IV 04/23/24 22:11 Infused .Q1H1M ONE Infusion Morphine Sulfate 4 mg 04/23/24 21:11 04/23/24 21:19 Morphine Sulfate 4 Mg/Ml Cartridge IVPUSH 04/23/24 21:12 4 mg ONCE ONE Administration Protocol Ondansetron HCl 4 mg 04/23/24 21:11 04/23/24 21:19 Ondansetron Hcl 4 Mg/2 Ml Vial IVPUSH 04/23/24 21:12 4 mg ONCE ONE Administration Discharge Plan Discharge Clinical Impression: Gastritis Patient Disposition: Home, Self-Care Instructions: Gastritis (ED) Additional Instructions: your ultrasound is negative for gallstones take Prilosec daily avoid fried and spicy food Medicine for nausea as prescribed Prescriptions: New omeprazole 40 mg capsule,delayed release(DR/EC) 40 mg PO DAILY Qty: 20 0RF ondansetron 4 mg tablet,disintegrating 4 mg PO Q6-8H PRN (Reason: nausea and vomiting) Qty: 7 0RF No Action clonazepam 0.5 mg tablet 0.5 mg PO DAILY PRN (Reason: anxiety attack) Interventions: ED Discharge Assessment Last Done: 04/24/24 00:49 Discharge Date/Time: 04/24/24 00:50 Print Language: Polish
[2024-04-23 21:03] LABS: MANUAL DIFF FLAG NO
[2024-04-23 21:04] LABS: Basophils Percent Auto 0.3 % (0-2); Eosinophils Percent Auto 0.3 % (0-4); Hematocrit 36.2 % (37.0-47.0); Hemoglobin 12.2 g/dl (12.0-16.0); Imm Gran Abs Auto 0.03 X10*3/uL (0.00-0.03); Imm Gran Pct Auto 0.4 % (0.0-0.4); Lymphocytes Absolute Auto 0.6 X10*3/uL (1.2-4.9); Lymphocytes Percent Auto 7.5 % (20-40); Mean Corpuscular HGB Conc 33.7 g/dl (31.0-35.0); Mean Corpuscular Hemoglobin 26.5 pg (27.0-33.0); Mean Corpuscular Volume 78.5 fL (80.0-98.0); Mean Platelet Volume 11.1 fL (9.4-12.3); Monocytes Absolute Auto 0.3 X10*3/uL (0.1-1.2); Monocytes Percent Auto 3.8 % (2-11); Neutrophils Absolute Auto 6.6 x10*3/uL (2.0-8.3); Neutrophils Percent Auto 87.7 % (45-73); Platelet Count 189 X10*3/uL (160-400); Red Blood Count 4.61 X10*6/uL (4.20-5.50); Red Cell Distribution Width 14.1 % (11.0-16.0); White Blood Count 7.6 X10*3/uL (4.8-10.8)
[2024-04-23] MEDS: 0.9 % Sodium Chloride 1,000 ML 999 ML IV (21:19)
[2024-04-23] MEDS: Morphine Sulfate 4 MG/ML CARTRIDGE IVPUSH (21:19)
[2024-04-23] MEDS: ondansetron HCL 4 MG/2 ML VIAL IVPUSH (21:19)
[2024-04-23 21:34] LABS: Alanine Aminotransferase 12 U/L (0-31); Albumin Level 4.3 g/dL (3.5-5.0); Alkaline Phosphatase 73 U/L (39-117); Anion Gap 13 (12-20); Aspartate Amino Transferase 17 U/L (5-31); Bilirubin Total 0.5 mg/dL (0.0-1.0); Blood Urea Nitrogen 9 mg/dL (9-16); Calcium 9.5 mg/dL (8.4-10.2); Carbon Dioxide 23 mmol/L (22-29); Chloride 105 mmol/L (96-108); Creatinine Clr Calc Pharmacy 97.2; Estimated Glomerular Filt Rate > 60; Glucose Random 128 mg/dL (60-115); Potassium 3.3 mmol/L (3.3-5.1); Sodium 138 mmol/L (135-145); Total Protein 7.1 g/dL (6.5-8.0)
[2024-04-23 21:35] LABS: Troponin-I High Sensitivity < 2.7 ng/L (<3.5-17.0)
[2024-04-23 23:39] VITALS: BP 95/59; PULSE 77; RESP 14; TEMP 36.9; O2SAT 98
[2024-04-24 00:29] LABS: Appearance Urine Clear; Color Urine Yellow; Glucose Urine UA Negative (Negative); Leukocyte Esterase Urine Negative (Negative); Nitrite Urine Negative (Negative); Specific Gravity - Urine >= 1.030 (1.005-1.025); UMIC TRIGGER UACC YES; Urine Blood Moderate (2+) (Negative); Urine Ketones >=160 mg/dL (Negative); Urine Protein 30 (1+) mg/dL (Neg-Trace)
[2024-04-24 00:38] LABS: Amphetamine Screen Urine Not Detected (Not Detect); Barbiturates, Urine Not Detected (Not Detect); Benzodiazepines Screen Urine Not Detected (Not Detect); Buprenorphine Scr Not Detected (Not Detect); Cannabinoid Screen Urine POSITIVE (Not Detect); Cocaine Screen Urine Not Detected (Not Detect); Fentanyl, urine Not Detected (Not Detect); Methadone Screen, Urine Not Detected (Not Detect); Opiate Screen Urine POSITIVE (Not Detect); Oxycodone Screen Urine Not Detected (Not Detect); Phencyclidine Screen Urine Not Detected (Not Detect)
[2024-04-24 00:42] LABS: Bacteria Urine Trace (None Seen); Hyaline Casts Urine 0-2 /LPF (0-2); WBC Urine 0-5 /HPF (0-5)
[2024-04-24 00:49] VITALS: BP 95/59; PULSE 77; RESP 14; TEMP 36.9; O2SAT 98
== END 2024-04-24 00:50 | disposition home or self-care (01) ==
PROVIDERS: Emergency Provider Internal Medicine
DX: R10.2 Pelvic and perineal pain (principal); R11.2 Nausea with vomiting, unspecified; R07.89 Other chest pain; Z79.899 Other long term (current) drug therapy; Z87.891 Personal history of nicotine dependence; Z51.81 Encounter for therapeutic drug level monitoring
CPT/HCPCS: 36415; 76705; 80053; 80307; 81001; 84484; 85025; 93005; 96361; 96374; 96375; 99284; J2270; J2405

== ENCOUNTER → 2024-04-23 20:24 | Outpatient (BNV) | payer MEDICAID, SELFPAY | PROVIDERS: Emergency Provider Internal Medicine; Visit Provider Internal Medicine Cardiovascular Disease | DX: R07.9 Chest pain, unspecified (principal); R94.31 Abnormal electrocardiogram [ECG] [EKG] | CPT/HCPCS: 93010 ==

== ENCOUNTER 2024-06-16 11:04 | Outpatient (AMB) | payer MEDICAID, SELFPAY ==
--- NOTE | 2024-06-16 11:05 | MHC.OFFVIS ---
Vital Signs 06/16/24 11:06 Height 5 ft 3 in Weight 143 lb BMI 25.3 Intake Visit Reasons: PATIENT ACCOUNTING REPRESENTATIVE/ HHC Referral for VV bilat LE Intake Note: PATIENT ACCOUNTING REPRESENTATIVE/ PCP referral for bilateral LE VV, Pt states bilateral LE swelling w/ discoloration, both legs equal. Pt states she has had VV as long as she can remember. 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 Complaints include pain over varicosities, swelling of lower extremities, in addition she notes that she is having difficulty ambulating distances. She can only actually walk about a block or 2 and is able to climb about a flight of stairs and it has been affecting her. 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 Of note she reports that she quit smoking about 2-3 months prior and prior to that she was smoking about a pack a day. And she is a nondiabetic. Patient denies any previous venous surgery or injections. Patient denies any history of DVT/ PE. Patient denies any history of phlebitis. Trial of compression includes - [id number] compression They now present for vascular evaluation regarding their varicose veins. [facility] Medical History Prolapsed hemorrhoids Bleeding hemorrhoids Smoker Anxiety Surgical History History of tubal ligation H/O section Family History Maternal Grandmother Breast cancer Social History Substance Use Type: Marijuana Female Reproductive History Menstrual Age of Menarche: 14 Review of Systems Const Reports as per HPI ENT Reports no additional complaints Card Denies chest pain, Denies chest pain at rest and Denies chest pain with activity Resp Denies chest congestion and Denies cough GI Reports no additional complaints Musc Details: pain over varicosities, aching of lower extremities, swelling, cramping, heaviness and tiredness, itching Denies abnormal gait Skin/Breast Reports pruritus and Denies wounds Neuro Reports no additional complaints and Denies abnormal gait Psych Denies no additional complaints Physical Exam Vital Signs: BMI result Body Mass Index 25.3 Const General: cooperative, healthy appearing and comfortable Orientation/consciousness: oriented to person, oriented to place and oriented to time Neck Carotids: no bruits Chest Chest palpation & inspection: normal inspection of the chest and normal palpation of entire chest wall Resp Effort & Inspection: normal respiratory effort and able to speak in complete sentences Cardio Other: Bilateral DP signals Rate: regular rate Heart sounds: S1 normal heart sound present and S2 normal heart sound present GI Inspection: Yes normal to inspection Skin Other: +2 edema, large rope-like varicosities greater than 4 mm left medial thigh CEAP Classification C4 - skin color changes Ep - Etiology Primary As - superficial veins P - reflux General skin exam: dry skin Neuro General: oriented to person, oriented to place and oriented to time Extrem Right lower extremity: full ROM, normal capillary refill and edema Left lower extremity: full ROM, normal capillary refill and edema Psych Mental Status: mental status grossly normal Assessment & Plan Assessment & Plan (1) PAD (peripheral artery disease): Code(s): I73.9 - Peripheral vascular disease, unspecified Category: Medical Plan: In short patient may have an element of peripheral vascular disease. At the current time I am unable to appreciate palpable lower extremity pulses. In addition she is endorsing symptoms of claudication. I have taken the liberty of ordering noninvasive arterial testing to rule that out. She will follow up with us after testing. (2) Varicose veins of left lower extremity with inflammation: Code(s): I83.12 - Varicose veins of left lower extremity with inflammation Category: Medical Plan: She does have some swelling and discoloration of the lower extremities. In addition she does have some superficial varicosities which are present. It is unclear what the true etiology of her pain is. I have taken the liberty of ordering venous insufficiency testing as well. There may be a neurogenic component to this as she does have lower back pain as well. Once again we have ordered 2 tests including arterial and venous to rule those out. Upon testing results it will give us a better indication as to the source of her pain. Thank you for allowing us to assist in her care. Orders: Orders US arterial duplex LE BI 1 Week I73.9 - Peripheral vascular disease, unspecified US venous duplex LE BI 1 Week I83.12 - Varicose veins of left lower extremity with inflammation Coding Level of Care Code New Pt Level 4 (99022) Complex EM visit Add On G2211 Diagnoses PAD (peripheral artery disease) I73.9 Varicose veins of left lower extremity with inflammation I83.12
[2024-06-16 11:06] VITALS: BMI 25.3
== END 2024-06-16 11:29 | disposition home or self-care (01) ==
PROVIDERS: PCP Pediatrics; Visit Provider Surgery Vascular Surgery
DX: I73.9 Peripheral vascular disease, unspecified (principal); I83.12 Varicose veins of left lower extremity with inflammation
CPT/HCPCS: 99204

== ENCOUNTER → 2024-06-16 11:04 | Outpatient (BNVA) | payer MEDICAID, SELFPAY | PROVIDERS: PCP Pediatrics; Visit Provider Surgery Vascular Surgery | DX: I73.9 Peripheral vascular disease, unspecified (principal); I83.12 Varicose veins of left lower extremity with inflammation | CPT/HCPCS: 99202 ==

== ENCOUNTER → 2024-06-17 11:00 | Outpatient (BNV) | payer MEDICAID, SELFPAY | PROVIDERS: PCP Pediatrics; Visit Provider Internal Medicine | DX: R92.2 Inconclusive mammogram (principal) | CPT/HCPCS: 77062; 77066 ==

== ENCOUNTER 2024-06-17 11:11 | Outpatient (REF) | payer MEDICAID, SELFPAY ==
--- NOTE | ~2024-06-17 | MM_ITS ---
EXAMINATION: MM DIAGNOSTIC DIGITAL BREAST TOMOSYNTHESIS, BILATERAL CLINICAL INFORMATION: Benign breast biopsies in 2022 for which follow-up is recommended. COMPARISON: Mammography: Comparison is made with relevant prior exams. TECHNIQUE: Digital breast mammography with tomosynthesis is performed in both the craniocaudal and mediolateral oblique views along with computer-aided detection (CAD). FINDINGS: The breasts are extremely dense, which lowers the sensitivity of mammography (ACR BI-RADS breast composition Category d). Marker clip in the upper inner right breast posterior depth. Marker clips in the upper outer and lower inner left breast. Bilateral circumscribed oval masses which wax and wane consistent with benign fibrocystic changes and cysts. Circumscribed oval mass in the left breast, which were demonstrated to be simple cysts on prior ultrasound at 10:00. There are no significant masses, abnormal calcifications, or other abnormalities. Results are provided to the patient at time of visit by the technologist. MM/MM tomosynthesis diagnostic BI IMPRESSION: There are no significant changes from prior study. ASSESSMENT: BI-RADS BI-RADS 2 - Benign Findings RECOMMENDATION: 1 year F/U This patient's information was entered into a reminder system with a target due date for their next mammogram. Electronically signed by: Criselda Jimenez DO 06/17/2024 01:03 PM LORENA MONCADA
== END 2024-06-17 11:12 | disposition home or self-care (01) ==
LOC: HO.MAMMO 11:11
PROVIDERS: PCP Pediatrics; Visit Provider Surgery
DX: R92.8 Other abnormal and inconclusive findings on diagnostic imaging of breast (principal)
CPT/HCPCS: 77062; 77066

== ENCOUNTER 2024-06-26 12:57 | Outpatient (REF) | payer MEDICAID, SELFPAY ==
[2024-06-26 15:36] LABS: TSH reflex Free T4 0.54 uIU/mL (0.32-4.0)
[2024-06-26 15:53] LABS: Alanine Aminotransferase 53 U/L (0-31); Albumin Level 4.2 g/dL (3.5-5.0); Alkaline Phosphatase 85 U/L (39-117); Aspartate Amino Transferase 41 U/L (5-31); Bilirubin Direct 0.2 mg/dL (0.0-0.5); Bilirubin Total 0.4 mg/dL (0.0-1.0); Total Protein 7.5 g/dL (6.5-8.0)
[2024-06-27 03:34] LABS: CT PCR NOT DETECTED (Not Detect.); NG PCR NOT DETECTED (Not Detect.)
[2024-06-27 07:51] LABS: Syphilis Screen Nonreactive (Nonreactive)
[2024-06-27 08:09] LABS: HIV AB/AG Nonreactive (Nonreactive); HIV Num 1 0.06 S/CO (0.00-0.99); ~HepC Num1 0.16 S/CO (0.00-0.79); ~Hepatitis C Antibody Nonreactive (Nonreactive)
[2024-06-29 15:55] LABS: Anti Nuclear Antibody Screen NEGATIVE (NEGATIVE)
== END 2024-06-26 12:58 | disposition home or self-care (01) ==
LOC: HO.CHCLDS 12:57
PROVIDERS: Visit Provider Pediatrics
DX: Z12.11 Encounter for screening for malignant neoplasm of colon (principal); Z11.3 Encounter for screening for infections with a predominantly sexual mode of transmission; M54.2 Cervicalgia
CPT/HCPCS: 36415; 80076; 84443; 86038; 86780; 86803; 87389; 87491; 87591

== ENCOUNTER 2024-08-10 10:31 | Outpatient (REF) | payer MEDICAID, SELFPAY ==
--- NOTE | ~2024-08-10 | US_ITS ---
EXAMINATION: Noninvasive assessment of the bilateral lower extremities with ARTERIAL DUPLEX, ANKLE BRACHIAL INDICES (ABIs), and PULSE VOLUME RECORDINGS (PVRs). CLINICAL INFORMATION: Peripheral vascular disease. Smoking. TECHNIQUE: Duplex Doppler techniques with waveform analysis and measurement of velocities in the bilateral common femoral, profunda femoris, superficial femoral, popliteal and tibial arteries were performed. Additionally, ankle pulse volume recordings, ankle pressure measurements and ankle brachial indices were obtained of the lower extremity arterial system bilaterally. The study was performed only at rest. COMPARISON: None FINDINGS: DIRECT DUPLEX DOPPLER FINDINGS: RIGHT LEG: Common femoral artery: 113 cm/s, phasicity: Triphasic. Profunda femoris artery: 82 cm/s, phasicity: Triphasic. Spectral broadening. Superficial femoral artery (proximal): 79 cm/s, phasicity: Triphasic. Superficial femoral artery (mid): 105 cm/s, phasicity: Triphasic. Superficial femoral artery (distal): 63 cm/s, phasicity: Triphasic. Popliteal artery: 50 cm/s, phasicity: Triphasic. Posterior tibial artery: 91 cm/s, phasicity: Triphasic. Spectral broadening. Peroneal artery: 43 cm/s, phasicity: Triphasic. Spectral broadening. Anterior tibial artery: 34 cm/s, phasicity: Biphasic. Dorsalis pedis artery: 20 cm/s, phasicity:Biphasic. LEFT LEG: Common femoral artery: 99 cm/s, phasicity: Triphasic. Profunda femoris artery: 79 cm/s, phasicity: Triphasic. Spectral broadening. Superficial femoral artery (proximal): 78 cm/s, phasicity: Triphasic. Superficial femoral artery (mid): 106 cm/s, phasicity: Triphasic. Superficial femoral artery (distal): 93 cm/s, phasicity: Triphasic. Popliteal artery: 57 cm/s, phasicity: Triphasic. Posterior tibial artery: 84 cm/s, phasicity: Biphasic. Spectral broadening. Peroneal artery: 62 cm/s, phasicity: Triphasic. There is a focal saccular irregularity of the vessel. Anterior tibial artery: 54 cm/s, phasicity: Biphasic. Spectral broadening. Dorsalis pedis artery: 12 cm/s, phasicity: Monophasic. Spectral broadening. ANKLE-BRACHIAL INDEX: Right: 1.2. Left: 1.21. ANKLE PVR WAVEFORMS: Right: Abnormal. Left: Abnormal. US/US arterial duplex BI w/ FARNAZ IMPRESSION: Right leg:Mild inflow disease right anterior tibialis and right dorsalis pedis arteries. Left leg:Disease to the left dorsalis pedis artery. 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 FARNAZ Reference: - >1.4 = calcified vessels - 0.9 - 1.4 = normal - no significant arterial disease - 0.7 - 0.89 = mild peripheral arterial disease - 0.51 - 0.69 = moderate peripheral arterial disease - d 0.50 = severe peripheral arterial disease - < .30 = critical arterial disease Electronically signed by: Braeden Orosco MD 08/11/2024 08:52 AM EDT
--- OUTSIDE RECORDS SUMMARY | 2024-08-10 11:54 | XMS_ITS | Encounter Summary ---
Author Organization [employer] Address [address] [place] [address] Care Team Providers Care Mold Breaker Name Role Phone Otilia Quiñones MD Primary Care Provider [phone] Reason for Visit * Reason Comments Scaling And Root Planing UL LL Encounter Details Date Type Department Care Team ([facility] st Contact Info) Description 07/13/2024 11:00 AM EST Office Visit [facility] ADULT DENTAL [address] [place] [address] Dolores Jasmine Social History Tobacco Use Types Packs/Day Years Used Date Smoking Tobacco: Former Cigarettes 0.5 34 Passive Smoke Exposure: Never Smokeless Tobacco: Never Tobacco Cessation:Counseling Given: Not Answered Alcohol Use Standard Drinks/Week Comments Never 0 (1 standard drink = 0.6 oz pur e alcohol) Depression Answer Date Recorded Patient Health Questionnaire-9 Score 0 07/03/2023 Patient Health Questionnaire-9 Score 0 07/03/2023 Last PHQ-9: Questionnaire Data Not on file 0 07/03/2023 Housing Stability Answer Date Recorded What is your housing situation today? I have latesha wolf 03/20/[address] you li ve. Do you have problems with any of the following? None of the above 03/20/2023 Food Insecurity Answer Date Recorded Within the past 12 months, y ou worried that your food would run out before you got money to buy more: Never True 03/20/2023 Within the past 12 months,th e food you bought just didn't last and you didn't have enough money to get more: Never True Transportation Answer Date Recorded In the past 12 months, has l ack of transportation kept you from medical appts, meetings, work or from getting things needed for daily living? No 03/20/2023 Utilities Answer Date Recorded In the past 12 months, has t he electric, gas, oil or water company threatened to shut off services in your home? No 03/20/2023 Depression Answer Date Recorded Patient Health Questionnaire-2 Score 0 07/03/2023 Comments Unknown Sex and Gender Information Value Date Recorded Sex Assigned at Female 04/02/2022 10:17 AM EDT Legal Sex Female 10:17 AM EDT Gender Identity Female 04/02/2022 10:17 AM EDT Sexual Orientation Straight 04/02/2022 10 :17 AM EDT documented as of this encounter Last Filed Vital Signs Vital Sign Reading Time Taken Comments Blood Pressure 122/76 07/13/2024 10:37 AM EST Pulse - - Temperature - - Respiratory Rate - - Oxygen Saturation - - Inhaled Oxygen Concentration - - Weight - - Height - - Body Mass Index - - documented in this encounter Progress Notes * Dolores Jasmine - 07/13/2024 11:00 AM EST Patient ID: Geovanna Hobbs is a 48 y.o. female. Time Out: Timeout Date: 07/13/24, Timeout Time: 1037 Location: [facility] Tooth: UL and LL Procedure: Scaling and Root Planing Verified the above with patient, civil engineering assistant, and provider. Confirmed via patient's chart, intraorally and by radiographs. Motion Picture Equipment Machinist: not applicable Medical Hx: Vitals: Blood pressure 122/76. Medications, Med Hx reviewed with patient and updated in chart. Treatment Provided Dental procedures in this visit D4342 - PERIODONTAL SCALING AND ROOT PLANING - 1 TO 3 TEETH PER QUADRANT UL (Completed) Service provider: Dolores Rinaldi provider: Yoshi Sandoval DMD D4342 - PERIODONTAL SCALING AND ROOT PLANING - 1 TO 3 TEETH PER QUADRANT LL (Completed) Service provider: Dolores Rinaldi provider: Yoshi Sandoval DMD D9450 - ADJUNCTIVE GENERAL SERVICES - PROFESSIONAL VISITS - CASE PRESENTATION, SUBSEQUENT TO DETAILED AND EXTENSIVE TREATMENT PLANNING (Completed) Service provider: Dolores Rinaldi provider: Yoshi Sandoval DMD D1330 - ORAL HYGIENE INSTRUCTIONS (Completed) Service provider: Dolores Rinaldi provider: Yoshi Sandoval DMD Topical: 20% Benzocaine Confirmed profound anesthesia. Oral Cancer Screening: No lesions Head/Neck Exam: No Lesions Instruments Used: Ultrasonic Scalers, Hand Scalers, and Prophy angle Fluoride: N/A Calculus: Moderate and Generalized Plaque: Light and Generalized Stain: Heavy and Generalized Bleeding: Light and Localized Gingiva: Healthy and Recession- localized OH: Fair Oral hygiene instructions provided to patient including brushing technique and flossing. Recommendations: [place] two times daily, modified calabrese technique, Floss daily, Electric toothbrush, Soft bristle toothbrush, [place] Tongue, Anti-sensitivity toothpaste Recall Frequency: 6 mo NV: SRP UR LR Hygienist: Dolores Jasmine RDH documented in this encounter Plan of Treatment Upcoming Encounters Date Type Department Care Team (Late st Contact Info) Description 09/01/2024 8:00 AM EDT Office Visit [facility] ADULT DENTAL [address] [place] [address] Yoshi Sandoval DMD [address] [place] [address] documented as of this encounter Procedures Procedure Name Priority Date/Time Associated Diagnosis Comments LL PERIODONTAL SCALING AND ROOT PLANING - 1 TO 3 TEETH PER QUADRANT Routine 07/13/2024 11:00 AM EST UL PERIODONTAL SCALING AND ROOT PLANING - 1 TO 3 TEETH PER QUADRANT Routine 07/13/2024 11:00 AM EST ORAL HYGIENE INSTRUCTIONS Routine 2024 11:00 AM EST CASE PRESENTATION, DETAILED AND EXTENSIVE TREATMENT PLANNING Routine 07/13/2024 11:00 AM EST documented in this encounter Visit Diagnoses Not on filedocumented in this encounter Additional Health Concerns Assessment Noted Time PHQ-9 Depression Total Score: 0 07/03/19 24 10:45 AM EST documented as of this encounter Care Teams Mold Breaker Relationship Specialty Start Date End Date Otilia Quiñones MD [address] [place] [address] PCP - General Family Medicine 09/15/13 documented as of this encounter
--- OUTSIDE RECORDS SUMMARY | 2024-08-10 11:54 | XMS_ITS | Encounter Summary ---
Author Organization [employer] Address [address] [place] [address] [address] [place] [address] Care Team Providers Care Attendant Arcade Name Role Phone Otilia Quiñones MD Primary Care Provider [phone] Encounter Details Date Type Department Care Team (Latest Contact Info) Description 08/25/2021 Abstract [facility] CONVERSIONS Dental, Provider, DDS Social History Tobacco Use Types Packs/Day Years Used Date Smoking Tobacco: Never Assessed Comments Unknown Sex and Gender Information Value Date Recorded Sex Assigned at Female 04/02/2022 10:17 AM EDT Legal Sex Female 10:17 AM EDT Gender Identity Female 04/02/2022 10:17 AM EDT Sexual Orientation Straight 04/02/2022 10 :17 AM EDT documented as of this encounter Plan of Treatment Upcoming Encounters Date Type Department Care Team (Late st Contact Info) Description 09/01/2024 8:00 AM EDT Office Visit [facility] ADULT DENTAL [address] [place] [address] Yoshi Sandoval, DMD [address] [place] [address] documented as of this encounter Visit Diagnoses Not on filedocumented in this encounter Care Teams Attendant Arcade Relationship Specialty Start Date End Date Otilia Quiñones MD [address] [place] [address] PCP - General Family Medicine 09/15/13 documented as of this encounter
--- OUTSIDE RECORDS SUMMARY | 2024-08-10 11:54 | XMS_ITS | Clinical Summary ---
Author Organization [employer] Address [address] [facility] [address] [place] [address] Care Team Providers Care Corporate Analyst Name Role Phone Otilia Quiñones MD Primary Care Provider [phone] Allergies No known active allergies Medications clonazePAM (KlonoPIN) 0.5 MG tablet take 1 Tablet by Oral route once a day prn severe anxiety 2 Active hydrOXYzine HCl (Atarax) 25 MG tablet Take 1 tablet (25 mg) by mouth if needed at bedtime for itching. 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 Will refill her weekly dose. Prolapsed hemorrhoids 03/04/2018 Encounters Date Type Department Care Team Description 07/30/2024 11:00 AM EST Office Visit [facility] [address] [place] [address] Dolores Jasmine 07/13/2024 11:00 AM EST Office Visit [facility] [address] [place] [address] Dolores Jasmine 07/08/2024 11:30 AM EST Office Visit [facility] [address] [place] [address] Yoshi Sandoval DMD Throat pain (Primary Dx) 06/30/2024 Telephone [facility] [address] [facility] [place] [address] Otilia Quiñones MD 06/26/2024 11:15 AM EST Office Visit [facility] [address] [place] [address] Otilia Quiñones MD Screening for colon cancer (Primary Dx); Routine screening for STI (sexually transmitted infection); Dietary counseling; Exercise counseling; Symptomatic varicose veins of both lower extremities; Primary insomnia; Oropharyngeal dysphagia 06/26/2024 Travel 06/25/2024 Telephone [facility] [address] [place] [address] Otilia Quiñones MD No Show 06/19/2024 11:30 AM EST Office Visit [facility] [address] [place] [address] Yoshi Sandoval DMD Full coverage crown needed for root canal-treated tooth (Primary Dx) 06/18/2024 Telephone [facility] [address] [place] [address] Otilia Quiñones MD Chart Prep 06/17/2024 Orders Only [facility] External Provider, [facility] 06/09/2024 11:30 AM EST Office Visit [facility] [address] [place] [address] Yoshi Sandoval DMD Full coverage crown needed for root canal-treated tooth (Primary Dx) 05/29/2024 Telephone [facility] [address] [place] [address] Otilia Quiñones MD 05/14/2024 Telephone [facility] [address] [place] [address] Otilia Quiñones MD Appointment from Last 3 Months Immunizations Name Administration Dates Next Due Td (adult), 5 Lf tetanus tox oid, preservative free, adsorbed 01/09/2017 Tdap 06/15/2015 Social History Tobacco Use Types Packs/Day Years [...] your housing situation today? I have latesha luciano 03/20/[address] you li [...] Orientation Straight 04/02/2022 10 :17 AM EDT Last Filed Vital Signs Vital Sign Reading Time Taken Comments Blood Pressure 124/82 07/30/2024 11:13 AM EST Pulse 63 06/26/2024 11:07 AM EST Temperature 36.3 ??C (97.3 ??F) 06/26/2024 11:[address] Respiratory Rate 18 06/26/2024 11:07 AM EST Oxygen Saturation 98% 06/26/2024 11:07 AM EST Inhaled Oxygen Concentration - - Weight 70.8 kg (156 lb) 06/26/2024 11:07 AM EST Height 162.6 cm (5' 4 ) 06/26/2024 11:07 AM EST Body Mass Index 26.78 06/26/2024 11:07 AM EST Plan of Treatment Upcoming Encounters Date Type Department Care Team (Late st Contact Info) Description 09/01/2024 8:00 AM EDT Office Visit [facility] [address] [place] [address] Yoshi Sandoval, DMD [address] [place] [address] Health Maintenance Due Date Last Done Comments CT Colonography 1975 Colonoscopy 1975 Colorectal Cancer Screening 1975 FIT DNA/Cologuard 1975 FIT 1975 FOBT 1975 Sigmoidoscopy 1976 Alcohol/Substance Use Screening 1988 Family Planning (PISQ) 1991 Hepatitis B Vaccines (1 of 3 - 19+ 3-dose series) 1995 SDOH Screening 06/15/2023 06/15/2022 Pap Smear 08/03/2023 08/02/2020 Dental X-Ray: Full Mouth 08/13/2023 08/11/2020, 12/02 Dental X-Ray: Bitewings 11/23/2023 11/22/19 23, 08/25/2021, 08/11/2020, Additional history exists Dental Oral Exam 01/18/2024 07/19/2023, , 08/25/2021, Additional history exists Dental Prophylaxis 01/18/2024 07/19/2023, 0 12/17/2022, 06/28/2021, Additional history exists COVID-19 Vaccine ( - 2023- season) 2024 Influenza Vaccine (#1) 2024 Depression Screening 07/03/2024 07/03/2023, 07/03/19 24 Mammogram 06/17/2025 06/17/2024, 02/01, 02/12/2023, Additional history exists Tobacco Screening 07/30/2025 07/30/2024 Cervical Cancer Screening 08/02/2025 HPV/Cotest 08/02/2025 08/02/2020 Zoster Vaccines (1 of 2) 2026 DTaP/Tdap/Td Vaccines (3 - Td or Tdap) 01/09/2027 01/09/2017, 06/15/2015 RSV Patients and Patients Aged 60 years or older (1 - 1-dose 75+ series) 2051 HIV Screening Completed 06/26/2024, 10/03, 07/03/2023, Additional history exists Hepatitis C Screening Completed 06/26/2024 , 10/31/2023, 07/03/2023, Additional history exists HIB Vaccines Aged Out No longer eligi ble based on patient's age to complete this topic HPV Vaccines Aged Out No longer eligi ble based on patient's age to complete this topic Hepatitis A Vaccines Aged Out No long er eligible based on patient's age to complete this topic IPV Vaccines Aged Out No longer eligi ble based on patient's age to complete this topic Meningococcal Vaccine Aged Out No maryann sirena eligible based on patient's age to complete this topic Pneumococcal Vaccine: Pediatrics (0 to 5 Years) and At-Risk Patients (6 to 49) Years) Aged Out No longer eligible based on patient's age to complete this topic RSV under 20 months Aged Out No longe r eligible based on patient's age to complete this topic Rotavirus Vaccines Aged Out No longer eligible based on patient's age to complete this topic Procedures Procedure Name Priority Date/Time Associated Diagnosis Comments ORAL HYGIENE INSTRUCTIONS Routine 07/30/2024 11:00 AM EST CASE PRESENTATION, DETAILED AND EXTENSIVE TREATMENT PLANNING Routine 07/30/2024 11:00 AM EST LR PERIODONTAL SCALING AND ROOT PLANING - 1 TO 3 TEETH PER QUADRANT Routine 07/30/2024 11:00 AM EST UR PERIODONTAL SCALING AND ROOT PLANING - 1 TO 3 TEETH PER QUADRANT Routine 07/30/2024 11:00 AM EST ORAL HYGIENE INSTRUCTIONS Routine 07/13/2024 11:00 AM EST CASE PRESENTATION, DETAILED AND EXTENSIVE TREATMENT PLANNING Routine 07/13/2024 11:00 AM EST LL PERIODONTAL SCALING AND ROOT PLANING - 1 TO 3 TEETH PER QUADRANT Routine 07/13/2024 11:00 AM EST UL PERIODONTAL SCALING AND ROOT PLANING - 1 TO 3 TEETH PER QUADRANT Routine 07/13/2024 11:00 AM EST CASE PRESENTATION, DETAILED AND EXTENSIVE TREATMENT PLANNING Routine 07/08/2024 11:30 AM EST Throat pain LIMITED ORAL EVALUATION - PROBLEM FOCUSED Routine 07/08/2024 11:30 AM EST Throat pain CHLAMYDIA/N. GONORRHOEAE RNA, TMA, UROGENITAL Routine 06/26/2024 1:07 PM EST Screening for colon cancer Routine screening for STI (sexually transmitted infection) FREDERIC SCREEN, IFA, W/REFL TITER AND PATTERN Routine 06/26/2024 12:59 PM EST Screening for colon cancer Routine screening for STI (sexually transmitted infection) TSH W/REFLEX TO FT4 Routine 06/26/2024 1 2:59 PM EST Screening for colon cancer Routine screening for STI (sexually transmitted infection) SYPHILIS SCREEN Routine 06/26/2024 12:59 PM EST Screening for colon cancer Routine screening for STI (sexually transmitted infection) HIV 1/2 ANTIGEN/ANTIBODY, FOURTH GENERATION W/RFL Routine 06/26/2024 12:59 PM EST Screening for colon cancer Routine screening for STI (sexually transmitted infection) HEPATITIS C AB W/REFL TO HCV RNA, QN, PCR Routine 06/26/2024 12:59 PM EST Screening for colon cancer Routine screening for STI (sexually transmitted infection) HEPATIC FUNCTION PANEL Routine 12:59 PM EST Screening for colon cancer Routine screening for STI (sexually transmitted infection) CASE PRESENTATION, DETAILED AND EXTENSIVE TREATMENT PLANNING Routine 06/19/2024 11:30 AM EST Full coverage crown needed for root canal-treated tooth 4 CROWN - PORCELAIN/CERAMIC Routine 06/19/2024 11:30 AM EST Full coverage crown needed for root canal-treated tooth BI MAMMOGRAM DIAGNOSTIC TOMOSYNTHESIS BILATERAL Routine 06/17/2024 11:18 AM EST CASE PRESENTATION, DETAILED AND EXTENSIVE TREATMENT PLANNING Routine 06/09/2024 11:30 AM EST Full coverage crown needed for root canal-treated tooth 4 CROWN PREP Routine 06/09/2024 11:30 AM EST Full coverage crown needed for root canal-treated tooth 4 PREFABRICATED POST AND CORE IN ADDITION TO CROWN Routine 06/09/2024 11:30 AM EST Full coverage crown needed for root canal-treated tooth Full PROPHYLAXIS - ADULT Routine 07/19/2023 11:00 AM EST PERIODIC ORAL EVALUATION - ESTABLISHED PATIENT Routine 07/19/2023 11:00 AM EST BITEWINGS - 4 RADIOGRAPHIC IMAGES Routine 11/21/2022 10:00 AM EDT INTRAORAL - COMPLETE SERIES OF RADIOGRAPHIC IMAGES Routine 08/11/2020 12:00 AM EST HPV MRNA E6/E7 Routine 08/02/2020 9:01 AM EST THINPREP PAP Routine 08/02/2020 9:01 AM EST from Last 3 Months or Most Recently Relevant to Health Maintenance Results * Chlamydia/N. Gonorrhoeae RNA, TMA, Urogenitial (06/26/2024 1:07 PM EST) CT PCR NOT DETECTED Not Detect. [facility] Comment:A not detected test result does not exclude the possibilityof infection because test results can be affected byimproper specimen collection, concurrent antibiotic therapy,or the number of organisms in the specimen which may bebelow the sensitivity of the test. As with many diagnostictests, results from the Xpert CT/NG assay should beinterpreted in conjunction with other laboratory andclinical data available to the clinician.Xpert CT/NG performance has not been evaluated in patientsless than 14 years of age. The assay should not be used forthe evaluationof suspected sexual abuse or for other medico-legalindications. Additional testing is recommended in anycircumstance when false positive or false negative resultscould lead to adverse medical, social or psychologicalconsequences. NG PCR NOT DETECTED Not Detect. [facility] Comment:A not detected test result does not exclude the possibilityof infection because test results can be affected byimproper specimen collection, concurrent antibiotic therapy,or the number of organisms in the specimen which may bebelow the sensitivity of the test. As with many diagnostictests, results from the Xpert CT/NG assay should beinterpreted in conjunction with other laboratory andclinical data available to the clinician.Xpert CT/NG performance has not been evaluated in patientsless than 14 years of age. The assay should not be used forthe evaluationof suspected sexual abuse or for other medico-legalindications. Additional testing is recommended in anycircumstance when false positive or false negative resultscould lead to adverse medical, social or psychologicalconsequences. Vaginal Swab 06/26/2024 1:07 PM EST 06/26/2024 2:40 PM EST Narrative [facility] - 06/27/2024 3:35 AM EST Urine Result [facility] Otilia Quiñones MD LAB MICROBIOLOGY - GENERAL OR DERABLES Final Result Performing Organization Address [facility]/ZIP Co de Phone Number [facility] [address] [place] [phone] * Syphilis Screen (06/26/2024 12:59 PM EST) Syphilis Screen Nonreactive Nonreactive [facility] Blood 06/26/2024 12:5 9 PM EST 06/26/2024 2:34 PM EST Otilia Quiñones MD LAB BLOOD ORDERABLES Final Re sult Performing Organization Address [facility] Co de Phone Number [facility] [address] [place] [phone] * TSH W/Reflex to FT4 (06/26/2024 12:59 PM EST) TSH reflex Free T4 0.54 0.32 - 4.0 uIU/mL [facility] Blood Venous blood specimen / Unknown 06/26/2024 12:59 PM EST 06/26/2024 2:34 PM EST us Otilia Quiñones MD LAB BLOOD ORDERABLES Final Re sult Performing Organization Address [facility] Co de Phone Number [facility] [address] [place] [address] [phone] * Hepatitis C Antibody with Reflex to HCV, RNA, Quantitative, Real-Time PCR (06/26/2024 12:59 PM EST) Hepatitis C Antibody Nonreactive Nonreactive [facility] Comment:Antibodies to HCV no t detected; does not exclude early acuteHCV infection. Blood Venous blood specimen / Unknown 06/26/2024 12:59 PM EST 06/26/2024 2:34 PM EST Otilia uQiñones MD LAB BLOOD ORDERABLES Final Re sult Performing Organization Address [facility] Co de Phone Number [facility] [address] [place] [phone] * HIV-1/2 Antigen and Antibodies, Fourth Generation, with Reflexes (06/26/2024 12:59 PM EST) HIV AB/AG Nonreactive Nonreactive [facility] Comment:HIV-1 p24 Ag and/or HIV-1/HIV-2 Ab not detected.A test result that is nonreactive does not exclude thepossibility of exposure to or infection with HIV-1 and/orHIV-2. Nonreactive results in this assay for individualswith prior exposure to HIV-1 and/or HIV-2 may be due toantigen and antibody levels that are below the limit ofdetection of this assay.The DigiFit HIV Ag/Ab Combo assay result andsupplemental assay results should be interpreted inconjunction with the patient's clinical presentation,history and other laboratory results. If the results areinconsistent with clinical evidence, additional testing issuggested to confirm the result. Blood Venous blood specimen / Unknown 06/26/2024 12:59 PM EST 06/26/2024 2:34 PM EST us Otilia Quiñones MD LAB BLOOD ORDERABLES Final Re sult Performing Organization Address [facility]/ZIP Co de Phone Number [facility] [address] [place] [address] [phone] * FREDERIC Screen,IFA, with Reflex to Titer and Pattern (06/26/2024 12:59 PM EST) Anti Nuclear Antibody Screen NEGATIVE NEGATIVE [facility] Comment:FREDERIC IFA is a first l ine screen for detecting thepresence of up to approximately 150 autoantibodies invarious autoimmune diseases. A negative FREDERIC IFA resultsuggests an FREDERIC-associated autoimmune disease is notpresent at this time, but is not definitive. If thereis high clinical suspicion for Sjogren's syndrome,testing for anti-SS-A/Ro antibody should be considered.Anti-Fátima-1 antibody should be considered for clinicallysuspected inflammatory myopathies.AC-0: NegativeInternational Consensus on FREDERIC Patterns(https://doi.org/10.1515/gcnw-2249-5578)For additional information, please refer tohttp://education.[facility]/faq/XMO500(This link is being provided for informational/educational purposes only.)THIS TEST WAS PERFORMED AT:[facility] [place] [phone] NASSAR MD FREDERIC Titer [facility] FREDERIC Pattern [facility] FREDERIC TITER 2 (REF LAB) [facility] FREDERIC Pattern 2 [facility] FREDERIC TITER 3 [facility] FREDERIC PATTERN 3 [facility] Blood Venous blood specimen / Unknown 06/26/2024 12:59 PM EST 06/26/2024 2:34 PM EST Otilia Quiñones MD LAB BLOOD ORDERABLES Final Re sult Performing Organization Address [facility]/ZIP Co de Phone Number [facility] [address] [place] [address] [phone] * (ABNORMAL) Hepatic Function Panel (06/26/2024 12:59 PM EST) Bilirubin, Total 0.4 0.0 - 1.0 mg/dL [facility] Bilirubin, Direct 0.2 0.0 - 0.5 mg/dL [facility] Aspartate Amino Transferase 41(H) 5 - 31 U/L [facility] Alanine Aminotransferase 53(H) 0 - 31 U/L [facility] Total Protein 7.5 6.5 - 8.0 g/dL [facility] Albumin Level 4.2 3.5 - 5.0 g/dL [facility] Alkaline Phosphatase 85 39 - 117 U/L [facility] Blood Venous blood specimen / Unknown 06/26/2024 12:59 PM EST 06/26/2024 2:34 PM EST us Otilia Quiñones MD LAB BLOOD ORDERABLES Final Re sult Performing Organization Address City/State/[facility] Co de Phone Number [facility] [address] [place] [address] [phone] * BI Mammogram Diagnostic Tomosynthesis Bilateral (06/17/2024 11:18 AM EST) Anatomical Region Laterality Modality Breast Bilateral Mammography 06/17/2024 11:1 8 AM EST Narrative 06/17/2024 1:06 PM EST ? [facility] ? [address] [facility] ?[place] [address] ? Mammography Report ? Signed ? Patient: Hobbs,Geovanna ?MR#: [id number] ?? 74 ? : 1975 ?Acct:[id number] ? Age/Sex: 48 / F ?ADM Date: 01/15/25 ? Loc: HO.MAMMO ? Attending Dr: Yunier Bentley MD ? Ordering Physician: Yunier Bentley MD ?Results: 2Beni ?? gn Findings ? Date of Service: 06/17/24 ?Follow Up: 1 Year From Orig ?? inal Mammogram ? Procedure(s): MM tomosynthesis diagnostic BI ?? Accession Number(s): [id number] ? cc: Otilia Quiñones MD; Yunier Bentley MD ? EXAMINATION: ?? MM DIAGNOSTIC DIGITAL BREAST TOMOSYNTHESIS, BILATERAL ? CLINICAL INFORMATION: ? Benign breast biopsies in 2022 for which follow-up is recommended. ? COMPARISON: ?? Mammography: Comparison is made with relevant prior exams. ? TECHNIQUE: ?? Digital breast mammography with tomosynthesis is performed in both the ?? craniocaudal and mediolateral oblique views along with computer-aided ?? detection (CAD). ? FINDINGS: ?? The breasts are extremely dense, which lowers the sensitivity of ?? mammography (ACR BI-RADS breast composition Category d). ?? Marker clip in the upper inner right breast posterior depth. ?? Marker clips in the upper outer and lower inner left breast. ?? Bilateral circumscribed oval masses which wax and wane consistent with ?? benign fibrocystic changes and cysts. ?? Circumscribed oval mass in the left breast, which were demonstrated to ?? be simple cysts on prior ultrasound at 10:00. ?? There are no significant masses, abnormal calcifications, or other ?? abnormalities. ? Results are provided to the patient at time of visit by the ?? technologist. ? MM/MM tomosynthesis diagnostic BI ?? IMPRESSION: ?? There are no significant changes from prior study. ? ASSESSMENT: ? BI-RADS BI-RADS 2 - Benign Findings ? RECOMMENDATION: ?? 1 year F/U ? This patient's information was entered into a reminder system with a ?? target due date for their next mammogram. ? Electronically signed by: ??Criselda Jimenez DO ??06/17/2024 01:03 PM EST ?? RP ? Dictated By: ?Criselda Jimenez DO ? Signed By: ?<Electronically signed by Criselda Jimenez, DO in OV> ? 06/17/24 1303 ? DD/ 1118 ? TD/TT: 06/17/24 1146 ? Surveyor Instrument Assistant: ? Procedure Note Donotuseinterpreter, [facility] - [facility] [address] [place], [place] [address] Mammography Report Signed Patient: Geovanna HobbsMR#: [id number] 74 : 1975Acct:[id number] Age/Sex: 48 / FADM Date: 06/17/24 Loc: [facility] Attending Dr: Yunier Bentley MD Ordering Physician: Yunier Bentleyesults: 2Beni gn Findings Date of Service: 06/17/24Follow Up: 1 Year From Orig inal Mammogram Procedure(s): MM tomosynthesis diagnostic BI Accession Number(s): [id number] cc: Otilia Quiñones MD; Yunier Bentley MD EXAMINATION: MM DIAGNOSTIC DIGITAL BREAST TOMOSYNTHESIS, BILATERAL CLINICAL INFORMATION: Benign breast biopsies in 2022 for which follow-up is recommended. COMPARISON: Mammography: Comparison is made with relevant prior exams. TECHNIQUE: Digital breast mammography with tomosynthesis is performed in both the craniocaudal and mediolateral oblique views along with computer-aided detection (CAD). FINDINGS: The breasts are extremely dense, which lowers the sensitivity of mammography (ACR BI-RADS breast composition Category d). Marker clip in the upper inner right breast posterior depth. Marker clips in the upper outer and lower inner left breast. Bilateral circumscribed oval masses which wax and wane consistent with benign fibrocystic changes and cysts. Circumscribed oval mass in the left breast, which were demonstrated to be simple cysts on prior ultrasound at 10:00. There are no significant masses, abnormal calcifications, or other abnormalities. Results are provided to the patient at time of visit by the technologist. MM/MM tomosynthesis diagnostic BI IMPRESSION: There are no significant changes from prior study. ASSESSMENT: BI-RADS BI-RADS 2 - Benign Findings RECOMMENDATION: 1 year F/U This patient's information was entered into a reminder system with a target due date for their next mammogram. Electronically signed by: Criselda Jimenez DO 06/17/2024 01:03 PM EST RP Dictated By: Criselda Jimenez DO Signed By: <Electronically signed by Criselda Jimenez DO in OV> 06/17/24 1303 DD/ 1118 TD/TT: 06/17/24 1146 Surveyor Instrument Assistant: [facility] External Provider IMG BI PROCEDURES Final Result * THINPREP PAP (08/02/2020 9:01 AM EST) Clinical Information: None given [facility] COMMENT SEE COMMENT [facility] Comment: EXPLANATORY NOTE: ? The Pap is a screening test for cervical cancer. It is ?? not a diagnostic test and is subject to false negative ?? and false positive results. It is most reliable when a ?? satisfactory sample, regularly obtained, is submitted ?? with relevant clinical findings and history, and when ?? the Pap result is evaluated along with historic and ?? current clinical information. ?? Lead Machinist : SEE COMMENT [facility] Comment: BK,CT(ASCP) CT screening location: [address] Interpretation/R esult: Negative for intraepithelial lesion or malignancy. [facility] LMP: 06/03/2020 [facility] Prev. BX: NONE GIVEN [facility] Prev. PAP: NONE GIVEN [facility] Review Lead Machinist : SEE COMMENT [facility] Comment: SL, CT(ASCP) CT screening location: [address] ??[id number] SOURCE: None given [facility] Statement Of Adequacy: SEE COMMENT [facility] Comment: Satisfactory for evaluation. Endocervical/transformation zone component absent. 08/02/2020 9:01 AM EST Thania HORN LAB PATHOLOGY ORDERABLES Final Result Performing Organization Address [facility] de Phone Number [facility] [address] * HPV mRNA E6/E7 (08/02/2020 9:01 AM EST) HPV nRNA E6/E7 Not Detected Not Detected [facility] Comment: Methodology: Coil Repair Technician-Mediated Amplification This assay detects E6/E7 viral messenger RNA (mRNA) from 14 high-risk HPV types (16,18,31,33,35,39,45,51,52,56,58,59,66,68). ? The analytical performance characteristics of this assay have been determined by [employer]. The modifications have not been cleared or approved by the FDA. This assay has been validated pursuant to the CLIA regulations and is used for clinical purposes. ?? For additional information, please refer to http://education.[employer]/faq/IYN175f6 (This link if provided for information/ educational purposes only.) 08/02/2020 9:01 AM EST Thania HORN LAB BLOOD ORDERABLES Kelly l Result Performing Organization Address [facility] de Phone Number [facility] [address] from Last 3 Months or Most Recently Relevant to Health Maintenance Insurance [employer] [facility] STAND ADULT Care Teams Corporate Analyst Relationship Specialty Start Date End Date Otilia Quiñones MD [address] [place] [address] SANDOVAL Barraza PCP - General Family Medicine 09/15/13
--- OUTSIDE RECORDS SUMMARY | 2024-08-10 11:54 | XMS_ITS | Encounter Summary ---
Author Organization [employer] Address [address] [facility] 7t [place] [address] Care Team Providers Care Chairperson Anesthesiology Name Role Phone Otilia Quiñones MD Primary Care Provider Encounter Details Date Type Department Care Team (Late st Contact Info) Description 03/28/2023 Abstract [facility] MEDICINE [address] [place] [address] Otilia Quiñones MD [address] [place], [place] [id number] Social History Tobacco Use Types Packs/Day Years Used Date Smoking Tobacco: Every Day Cigarettes 0.5 34 Passive Smoke Exposure: Never Smokeless Tobacco: Never Alcohol Use Standard Drinks/Week Comments Never 0 (1 standard drink = 0.6 oz pur e alcohol) Housing Stability Answer Date Recorded What is [...] off services in your home? No 03/20/2023 Comments Unknown Sex and Gender Information Value [...] Description 09/01/2024 8:00 AM EDT Office Visit [facility] ADULT DENTAL [address] [place] [address] Yoshi Sandoval, DMD [address] [place] [address] documented as of this encounter Visit Diagnoses Not on filedocumented in this encounter Care Teams Chairperson Anesthesiology Relationship Specialty Start Date End Date Otilia Quiñones MD [address] [place] [address] PCP - General Family Medicine 09/15/13 documented as of this encounter
--- OUTSIDE RECORDS SUMMARY | 2024-08-10 11:54 | XMS_ITS | Encounter Summary ---
Author Organization [employer] Address [address] [facility] 7t [place] [address] Care Team Providers Care Digital Recruiter Name Role Phone Otilia Quiñones MD Primary Care Provider [phone] Reason for Visit * Reason Comments Med Refill Encounter Details Date Type Department Care Team ([facility] st Contact Info) Description 11/22/2023 Refill [facility] MED & PEDS [address] [place], [place] [phone] Otilia Quiñones MD [address] [place] [address] Social History Tobacco Use Types Packs/Day Years [...] Upcoming Encounters Date Type Department Care Team ([facility] st Contact Info) Description 09/01/2024 8:00 AM EDT Office Visit [facility] ADULT DENTAL [address] [place] [address] Yoshi Sandoval, DMD [address] [place] [address] documented as of this encounter Visit Diagnoses Not on filedocumented in this encounter Additional Health Concerns Assessment Noted Time PHQ-9 Depression Total Score: 0 07/03/19 24 10:45 AM EST documented as of this encounter Care Teams Digital Recruiter Relationship Specialty Start Date End Date Otilia Quiñones MD [address] [place] [address] PCP - General Family Medicine 09/15/13 documented as of this encounter
--- OUTSIDE RECORDS SUMMARY | 2024-08-10 11:54 | XMS_ITS | Encounter Summary ---
Author Organization [employer] Address [address] [facility] 7t [place] [address] Care Team Providers Care Inside Outside Sales Representative Name Role Phone Otilia Quiñones MD Primary Care Provider [phone] Reason for Visit * Reason Comments Scaling And Root Planing UR LR Encounter Details Date Type Department Care Team ([facility] Contact Info) Description 07/30/2024 11:00 AM EST Office Visit [facility] ADULT DENTAL [address] [place] [address] Dolores Jasmine Social History Tobacco Use Types [...] Pressure 124/82 07/30/2024 11:13 AM EST Pulse - - Temperature - - Respiratory Rate - - Oxygen Saturation - - Inhaled Oxygen Concentration - - Weight - - Height - - Body Mass Index - - documented in this encounter Progress Notes * Dolores Jasmine - 07/30/2024 11:00 AM EST Patient ID: Geovanna Hobbs is a 49 y.o. female. Time Out: Timeout Date: 07/30/24, Timeout Time: 1114 Location: [facility] Tooth: UR and LR Procedure: Scaling and Root Planing Verified the above with patient, assistant manager airside operations, and provider. Confirmed via patient's chart, intraorally and by radiographs. Senior Report Developer: not applicable Medical Hx: Vitals: Blood pressure 124/82. Medications, Med Hx reviewed with patient and updated in chart. Treatment Provided Dental procedures in this visit D4342 - PERIODONTAL SCALING AND ROOT PLANING - 1 TO 3 TEETH PER QUADRANT UR (Completed) Service provider: Dolores Rinaldi provider: Yoshi Sandoval DMD D4342 - PERIODONTAL SCALING AND ROOT PLANING - 1 TO 3 TEETH PER QUADRANT LR (Completed) Service provider: Dolores Rinaldi provider: Yoshi Sandoval DMD D9450 - CASE PRESENTATION, DETAILED AND EXTENSIVE TREATMENT PLANNING (Completed) Service provider: Dolores Rinaldi provider: Yoshi Sandoval DMD D1330 - ORAL HYGIENE INSTRUCTIONS (Completed) Service provider: Dolores Rinaldi provider: Yoshi Sandoval DMD Topical: 20% Benzocaine Confirmed profound anesthesia. Oral Cancer Screening: No lesions Head/Neck Exam: No Lesions Instruments Used: Ultrasonic Scalers, Hand Scalers, and Prophy angle Fluoride: N/A Calculus: Moderate and Localized Plaque: Light and Generalized Stain: Moderate and Generalized Bleeding: Light and Generalized Gingiva: Recession- localized and Erythematous OH: Poor Oral hygiene instructions provided to patient including brushing technique and flossing. Recommendations: Kingston two times daily, modified calabrese technique, Floss daily, Electric toothbrush, Soft bristle toothbrush, Kingston Tongue, Anti-sensitivity toothpaste, Prevident Recall Frequency: 6 mo NV: Limited Evaluation/ Restorations Hygienist: Dolores Jasmine RDH documented in this encounter Plan of Treatment Upcoming Encounters Date Type Department Care Team (Late st Contact Info) Description 09/01/2024 8:00 AM EDT Office Visit [facility] ADULT DENTAL [address] [place], [place] [phone] Yoshi Sandoval DMD [address] [place], [place] [phone] Scheduled Orders Name Type Priority Associated Diagnoses Orde r Schedule LIMITED ORAL EVALUATION - PROBLEM FOCUSED Dental Routine 1 Occurrences starting 07/30/2024 documented as of this encounter Procedures Procedure Name Priority Date/Time Associated Diagnosis Comments LR PERIODONTAL SCALING AND ROOT PLANING - 1 TO 3 TEETH PER QUADRANT Routine 07/30/2024 11:00 AM EST UR PERIODONTAL SCALING AND ROOT PLANING - 1 TO 3 TEETH PER QUADRANT Routine 07/30/2024 11:00 AM EST ORAL HYGIENE INSTRUCTIONS Routine 2024 11:00 AM EST CASE PRESENTATION, DETAILED AND EXTENSIVE TREATMENT PLANNING Routine 07/30/2024 11:00 AM EST documented in this encounter Visit Diagnoses Not on filedocumented in this encounter Additional Health Concerns Assessment Noted Time PHQ-9 Depression Total Score: 0 07/03/19 24 10:45 AM EST documented as of this encounter Care Teams Inside Outside Sales Representative Relationship Specialty Start Date End Date Otilia Quiñones MD [address] [place] [address] PCP - General Family Medicine 09/15/13 documented as of this encounter
--- OUTSIDE RECORDS SUMMARY | 2024-08-10 11:54 | XMS_ITS | Encounter Summary ---
Author Organization [employer] Address [address] [place] [address] 7[address] [place] [address] Care Team Providers Care Superintendent Cemetery Name Role Phone Otilia Quiñones MD Primary Care Provider [phone] Encounter Details Date Type Department Care Team (Latest Contact Info) Description 08/11/2020 Abstract [facility] CONVERSIONS Dental, Provider, DDS Social History Tobacco [...] Description 09/01/2024 8:00 AM EDT Office Visit [facility] ADULT DENTAL [address] [place] [address] Yoshi Sandoval, DMD [address] [place] [address] documented as of this encounter Visit Diagnoses Not on filedocumented in this encounter Care Teams Superintendent Cemetery Relationship Specialty Start Date End Date Otilia Quiñones MD [address] [place] [address] PCP - General Family Medicine 09/15/13 documented as of this encounter
== END 2024-08-10 10:32 | disposition home or self-care (01) ==
LOC: HO.US 10:31
PROVIDERS: PCP Pediatrics; Visit Provider Surgery Vascular Surgery
DX: I73.9 Peripheral vascular disease, unspecified (principal)
CPT/HCPCS: 93922; 93925

== ENCOUNTER → 2024-08-10 10:34 | Outpatient (BNV) | payer MEDICAID, SELFPAY | PROVIDERS: PCP Pediatrics; Visit Provider Radiology Diagnostic Radiology | DX: I73.9 Peripheral vascular disease, unspecified (principal) | CPT/HCPCS: 93922; 93925 ==

== ENCOUNTER 2024-09-16 09:48 | Outpatient (REF) | payer MEDICAID, SELFPAY ==
--- NOTE | ~2024-09-16 | FL_ITS ---
EXAMINATION: XR FLUOROSCOPY UPPER GI SERIES CLINICAL INFORMATION: Difficulty swallowing with globus sensation, dysphasia. COMPARISON: No prior. TECHNIQUE: Fluoroscopic air contrast upper GI examination was performed utilizing standard techniques with thin and thick barium and effervescent granules. Numerous spot images were obtained. Several fluoroscopic image hold cine sequences were also obtained. FINDINGS: UPPER GI SERIES: Lateral cine images of the oropharynx and hypopharynx demonstrate normal swallow mechanism with normal epiglottic inversion and soft palate elevation. No laryngeal penetration, glottic or subglottic aspiration identified. No nasopharyngeal reflux present. Hypopharyngeal structures appear normal without evidence of mass or diverticulum. There was no significant cricopharyngeal achalasia. Dual and single contrast images of the esophagus demonstrate normal caliber, contour, and mucosal pattern. No evidence of stricture, mass, or ulcerations identified. Esophageal peristalsis was normal. Small type I hiatus hernia. Wide open Schatzki's ring present. No significant gastroesophageal reflux was seen during the course of the examination and on reflux views. Dual contrast and single contrast images of the stomach are limited due to poor tolerance of the effervescent granule gas. There was grossly normal contour, rugal fold pattern, mucosal pattern without evidence of mass, ulceration, or other abnormality. Contrast freely passed into the gastric antrum and duodenal bulb without delay. Single and air-contrast images of the duodenal bulb demonstrate no abnormality. The duodenal sweep has a normal appearance, course, and mucosal fold appearance. FLUOROSCOPY TIME: 2 minutes, 53 seconds Number of Spot Images:7 Number of cines obtained: 12 DOSE AREA PRODUCT: 2192 uGy-m2 (microgray-meter squared) FL/FL upper GI w air w Ba Swallow IMPRESSION: 1. Somewhat limited evaluation of the stomach due to poor tolerance of the effervescent granules. Grossly normal appearance. 2. Small type I hiatus hernia. Nonobstructing Schatzki's ring. 3. No gastroesophageal reflux identified during the course of the exam. 4. No imaging abnormality to explain globus sensation. Electronically signed by: Stan Boo MD 09/16/2024 10:55 AM EDT
--- OUTSIDE RECORDS SUMMARY | 2024-09-16 11:02 | XMS_ITS | Encounter Summary ---
Author Organization [employer] Address [address] [facility] 7t [place] [address] Care Team Providers Care Record Clerk Name Role Phone Otilia Quiñones MD Primary Care Provider [phone] Reason for Visit * Reason Comments Med Refill Encounter Details Date Type Department Care Team ([facility] st Contact Info) Description 11/22/2023 Refill [facility] MED & PEDS [address] [place], [place] [phone] Otilia Quiñones MD [address] [place] [address] Social History Tobacco Use Types Packs/Day Years [...] Care Team (Late st Contact Info) Description 09/24/2024 1:00 PM EDT Office Visit [facility] ADULT DENTAL [address] [place] [address] Yoshi Sandoval, JUDI [address] [place] [address] 10/15/2024 11:00 AM EDT Office Visit [facility] MED & PEDS [address] [place] [address] Otilia Quiñones MD [address] [place] [address] documented as of this encounter Visit Diagnoses Not on filedocumented in this encounter Additional Health Concerns Assessment Noted Time PHQ-9 Depression Total Score: 0 07/03/19 24 10:45 AM EST documented as of this encounter Care Teams Record Clerk Relationship Specialty Start Date End Date Otilia Quiñones MD [address] [place] [address] PCP - General Family Medicine 09/15/13 documented as of this encounter
--- OUTSIDE RECORDS SUMMARY | 2024-09-16 11:02 | XMS_ITS | Clinical Summary ---
Author Organization [employer] Address [address] [facility] [address] [place] [address] Care Team Providers Care Health Care Administrator Name Role Phone Otilia Quiñones MD Primary Care Provider [phone] Allergies No known active allergies Medications hydrOXYzine HCl (Atarax) 25 MG tablet Take 1 tablet (25 mg) by mouth if needed at bedtime for itching. 1 tab to 2 tabs a day 60 tablet 3 01/08/2023 Active cloNIDine (Catapres) 0.2 MG tablet Take 1 tab orally qhs 30 tablet 3 06/26/2024 Active amoxicillin (Amoxil) 500 MG capsule Take 1 capsule (500 mg) by mouth 2 times daily for 5 days. 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 Will refill her weekly dose. Prolapsed hemorrhoids 03/04/2018 Encounters Date Type Department Care Team Description 09/03/2024 Orders Only [facility] [address] [place] [address] Otilia Quiñones MD Transaminitis (Primary Dx) 08/14/2024 11:15 AM EDT Office Visit [facility] [address] [place] [address] Patsy Man MD Strep pharyngitis (Primary Dx); Pain with swallowing 08/14/2024 Travel 08/14/2024 Population Health Risk Score [facility] () Department [address] [place] [phone] Provider, Population Health Generic 08/13/2024 Telephone [facility] [address] [place] [address] Otilia Quiñones MD 08/10/2024 Orders Only [facility] External Provider, [facility] 07/30/2024 11:00 AM EST Office Visit [facility] [address] [place] [address] Dolores Jasmine 07/13/2024 11:00 AM EST Office Visit [facility] [address] [place] [address] Dolores Jasmine 07/08/2024 11:30 AM EST Office Visit [facility] [address] [place] [address] Yoshi Sandoval DMD Throat pain (Primary Dx) 06/30/2024 Telephone [facility] [address] [place] [address] Otilia Quiñones MD 06/26/2024 11:15 AM EST Office Visit [facility] [address] [place] [address] Otilia Quiñones MD Screening for colon cancer (Primary Dx); Routine screening for STI (sexually transmitted infection); Dietary counseling; Exercise counseling; Symptomatic varicose veins of both lower extremities; Primary insomnia; Oropharyngeal dysphagia 06/26/2024 Travel 06/25/2024 Telephone [facility] [address] [place] [address] Otilia Quiñones MD No Show 06/19/2024 11:30 AM EST Office Visit [facility] [address] [place] [address] Yoshi Sandoval DMD Full coverage crown needed for root canal-treated tooth (Primary Dx) 06/18/2024 Telephone [facility] [address] [place] [address] Otilia Quiñones MD Chart Prep from Last 3 Months Immunizations Name Administration [...] Patient Health Questionnaire-2 Score 0 07/03/2023 Comments No Sex and Gender Information Value Date Recorded Sex Assigned at Female 04/02/2022 10:17 AM EDT Legal Sex Female 10:17 AM EDT Gender Identity Female 04/02/2022 10:17 AM EDT Sexual Orientation Straight 04/02/2022 10 :17 AM EDT Last Filed Vital Signs Vital Sign Reading Time Taken Comments Blood Pressure 122/78 08/14/2024 11:20 AM EDT Pulse 80 08/14/2024 11:20 AM EDT Temperature 36.5 ??C (97.7 ??F) 08/14/2024 11:20 AM E DT Respiratory Rate 18 08/14/2024 11:20 AM EDT Oxygen Saturation 98% 06/26/2024 11:07 AM EST Inhaled Oxygen Concentration - - Weight 71.7 kg (158 lb) 08/14/2024 11:20 AM EDT Height 162.6 cm (5' 4 ) 08/14/2024 11:20 AM EDT Body Mass Index 27.12 08/14/2024 11:20 AM EDT Plan of Treatment Upcoming Encounters Date Type Department Care Team (Late st Contact Info) Description 09/24/2024 1:00 PM EDT Office Visit [facility] [address] [place], [place] [phone] Yoshi Snadoval DMD [address] [place] [address] 10/15/2024 11:00 AM EDT Office Visit [facility] [address] [place] [address] Otilia Quiñones MD [address] [place] [address] Health Maintenance Due Date Last Done Comments [...] Additional history exists COVID-19 Vaccine ( - season) 2024 Influenza Vaccine (#1) 2024 Depression Screening 07/03/2024 07/03/2023, 07/03/19 Mammogram 06/17/2025 06/17/2024, 02/01, 02/12/2023, Additional history exists Cervical Cancer Screening 08/02/2025 HPV/Cotest 08/02/2025 08/02/2020 Tobacco Screening 08/14/2025 08/14/2024 Zoster Vaccines (1 of 2) 2026 DTaP/Tdap/Td [...] Procedure Name Priority Date/Time Associated Diagnosis Comments FL UPPER GI W AIR W BARIUM SWALLOW Routine 09/16/2024 9:50 AM EDT POCT RAPID COVID ANTIGEN Routine 08/14/2024 11:30 AM EDT Strep pharyngitis POCT RAPID STREP A Routine 08/14/2024 11 :29 AM EDT Strep pharyngitis VASC US LOWER EXTREMITY ARTERIAL DUPLEX BILATERAL WITH KARLI Routine 08/10/2024 10:52 AM EDT ORAL HYGIENE INSTRUCTIONS Routine 07/30/2024 11:00 AM [...] TOMOSYNTHESIS BILATERAL Routine 06/17/2024 11:18 AM EST Full PROPHYLAXIS - ADULT Routine 07/19/2023 11:00 [...] Recently Relevant to Health Maintenance Results * FL Upper GI w/air w/Barium Swallow (09/16/2024 9:50 AM EDT) Anatomical Region Laterality Modality Body Radiographic Renée ging 09/16/2024 9:50 AM EDT Narrative 09/16/2024 10:57 AM EDT ? [facility] ?[address] ?[place] [address] ? Fluoroscopy Report ? Signed ? Patient: Hobbs,Geovanna ?MR#: [id number] ?? 74 ? : 1975 ?Acct:[id number] ? Age/Sex: 49 / F ?ADM Date: 09/16/24 ? Loc: HO.XRAY ? Attending Dr: Otilia Quiñones MD ? Ordering Physician: Otilia Quiñones MD ?? Date of Service: 09/16/24 ?? Procedure(s): FL upper GI w air w Ba Swallow ?? Accession Number(s): [id number] ? cc: Otilia Quiñones MD ? EXAMINATION: ?? XR FLUOROSCOPY UPPER GI SERIES ? CLINICAL INFORMATION: ?? Difficulty swallowing with globus sensation, dysphasia. ? COMPARISON: ?? No prior. ? TECHNIQUE: ?? Fluoroscopic air contrast upper GI examination was performed utilizing ?? standard techniques with thin and thick barium and effervescent ?? granules. Numerous spot images were obtained. Several fluoroscopic ?? image hold cine sequences were also obtained. ? FINDINGS: ? UPPER GI SERIES: ?? Lateral cine images of the oropharynx and hypopharynx demonstrate ?? normal swallow mechanism with normal epiglottic inversion and soft ?? palate elevation. No laryngeal penetration, glottic or subglottic ?? aspiration identified. No nasopharyngeal reflux present. Hypopharyngeal ?? structures appear normal without evidence of mass or diverticulum. ?? There was no significant cricopharyngeal achalasia. ? Dual and single contrast images of the esophagus demonstrate normal ?? caliber, contour, and mucosal pattern. No evidence of stricture, mass, ?? or ulcerations identified. Esophageal peristalsis was normal. ? Small type I hiatus hernia. Wide open Schatzki's ring present. No ?? significant gastroesophageal reflux was seen during the course of the ?? examination and on reflux views. ? Dual contrast and single contrast images of the stomach are limited due ?? to poor tolerance of the effervescent granule gas. There was grossly ?? normal contour, rugal fold pattern, mucosal pattern without evidence of ?? mass, ulceration, or other abnormality. Contrast freely passed into the ?? gastric antrum and duodenal bulb without delay. ? Single and air-contrast images of the duodenal bulb demonstrate no ?? abnormality. The duodenal sweep has a normal appearance, course, and ?? mucosal fold appearance. ? FLUOROSCOPY TIME: ?? 2 minutes, 53 seconds ? Number of Spot Images:7 ?? Number of cines obtained: 12 ? DOSE AREA PRODUCT: ?? 2192 uGy-m2 (microgray-meter squared) ? FL/FL upper GI w air w Ba Swallow ?? IMPRESSION: ?? 1. ??Somewhat limited evaluation of the stomach due to poor tolerance of ?? the effervescent granules. Grossly normal appearance. ?? 2. Small type I hiatus hernia. Nonobstructing Schatzki's ring. ?? 3. No gastroesophageal reflux identified during the course of the exam. ?? 4. No imaging abnormality to explain globus sensation. ? Electronically signed by: ??Stan Boo MD ??09/16/2024 10:55 AM EDT RP ? Dictated By: ?Stan Boo MD ? Signed By: ?<Electronically signed by Stan Boo MD in OV> ?09/16/24 1055 ? DD/ 0950 ? TD/TT: 09/16/24 1020 ? Cardiac Catheterization Technician: ? Procedure Note Addison, Robbie - 09/16/2024 [place] [address] Fluoroscopy Report Signed Patient: Geovanna HobbsMR#: [id number] 74 : 1975Acct:[id number] Age/Sex: 49 / FADM Date: 09/16/24 Loc: DESIREE Attending Dr: Otilia Quiñones MD Ordering Physician: Otilia Quiñones MD Date of Service: 09/16/24 Procedure(s): FL upper GI w air w Ba Swallow Accession Number(s): [id number] cc: Otilia Quiñones MD EXAMINATION: XR FLUOROSCOPY UPPER GI SERIES CLINICAL INFORMATION: Difficulty swallowing with globus sensation, dysphasia. COMPARISON: No prior. TECHNIQUE: Fluoroscopic air contrast upper GI examination was performed utilizing standard techniques with thin and thick barium and effervescent granules. Numerous spot images were obtained. Several fluoroscopic image hold cine sequences were also obtained. FINDINGS: UPPER GI SERIES: Lateral cine images of the oropharynx and hypopharynx demonstrate normal swallow mechanism with normal epiglottic inversion and soft palate elevation. No laryngeal penetration, glottic or subglottic aspiration identified. No nasopharyngeal reflux present. Hypopharyngeal structures appear normal without evidence of mass or diverticulum. There was no significant cricopharyngeal achalasia. Dual and single contrast images of the esophagus demonstrate normal caliber, contour, and mucosal pattern. No evidence of stricture, mass, or ulcerations identified. Esophageal peristalsis was normal. Small type I hiatus hernia. Wide open Schatzki's ring present. No significant gastroesophageal reflux was seen during the course of the examination and on reflux views. Dual contrast and single contrast images of the stomach are limited due to poor tolerance of the effervescent granule gas. There was grossly normal contour, rugal fold pattern, mucosal pattern without evidence of mass, ulceration, or other abnormality. Contrast freely passed into the gastric antrum and duodenal bulb without delay. Single and air-contrast images of the duodenal bulb demonstrate no abnormality. The duodenal sweep has a normal appearance, course, and mucosal fold appearance. FLUOROSCOPY TIME: 2 minutes, 53 seconds Number of Spot Images:7 Number of cines obtained: 12 DOSE AREA PRODUCT: 2192 uGy-m2 (microgray-meter squared) FL/FL upper GI w air w Ba Swallow IMPRESSION: 1. Somewhat limited evaluation of the stomach due to poor tolerance of the effervescent granules. Grossly normal appearance. 2. Small type I hiatus hernia. Nonobstructing Schatzki's ring. 3. No gastroesophageal reflux identified during the course of the exam. 4. No imaging abnormality to explain globus sensation. Electronically signed by: Stan Boo MD 09/16/2024 10:55 AM EDT Dictated By: Stan Boo MD Signed By: <Electronically signed by Stan Boo MD in OV> 09/16/24 1055 DD/ 0950 TD/TT: 09/16/24 1020 Cardiac Catheterization Technician: us Otilia Quiñones MD IMG FLUOROSCOPY PROCEDURES Fi nal Result * POCT Rapid Covid-19 BinaxNOW (08/14/2024 11:30 AM EDT) Rapid COVID Ag Negative QC Media Lot # [id number] Lot# Expiration Date [id number] Swab 08/14/2024 11:3 0 AM EDT Patsy Man MD POINT OF CARE TEST ENTER/EDIT OR DERABLES Final Result * (ABNORMAL) POCT Rapid Strep A OSOM (08/14/2024 11:29 AM EDT) Rapid Strep A Screen Positive( A) Negative, None Detected QC Media Lot # [id number] Lot# Expiration Date [id number] Swab 08/14/2024 11:2 9 AM EDT Patsy Man MD POINT OF CARE TEST ENTER/EDIT OR DERABLES Final Result * VASC US Lower Extremity Arterial Duplex Bilateral With Karli (08/10/2024 10:52 AM EDT) 08/10/2024 10:5 2 AM EDT Narrative [facility] - 08/11/2024 8:55 AM EDT ? [facility] ?[address] ?[place] [address] ? Ultrasound Report ? Signed ? Patient: Hobbs,Geovanna ?MR#: [id number] ?? 74 ? : 1975 ?Acct:[id number] ? Age/Sex: 49 / F ?ADM Date: 08/10/24 ? Loc: HO.US ? Attending Dr: Cory Herzog MD ? Ordering Physician: Cory Herzog MD ?? Date of Service: 08/10/24 ?? Procedure(s): US arterial duplex BI w/ KARLI ?? Accession Number(s): [id number] ? cc: Otilia Quiñones MD; Cory Herzog MD ? EXAMINATION: ?? Noninvasive assessment of the bilateral lower extremities with ARTERIAL ?? DUPLEX, ANKLE BRACHIAL INDICES (ABIs), and PULSE VOLUME RECORDINGS ?? (PVRs). ? CLINICAL INFORMATION: ?? Peripheral vascular disease. Smoking. ? TECHNIQUE: ?? Duplex Doppler techniques with waveform analysis and measurement of ?? velocities in the bilateral common femoral, profunda femoris, ?? superficial femoral, popliteal and tibial arteries were performed. ? Additionally, ankle pulse volume recordings, ankle pressure ?? measurements and ankle brachial indices were obtained of the lower ?? extremity arterial system bilaterally. The study was performed only at ?? rest. ? COMPARISON: None ? FINDINGS: ? DIRECT DUPLEX DOPPLER FINDINGS: ? RIGHT LEG: ?? Common femoral artery: 113 cm/s, phasicity: Triphasic. ?? Profunda femoris artery: 82 cm/s, phasicity: Triphasic. Spectral ?? broadening. ?? Superficial femoral artery (proximal): 79 cm/s, phasicity: Triphasic. ?? Superficial femoral artery (mid): 105 cm/s, phasicity: Triphasic. ?? Superficial femoral artery (distal): 63 cm/s, phasicity: Triphasic. ?? Popliteal artery: 50 cm/s, phasicity: Triphasic. ?? Posterior tibial artery: 91 cm/s, phasicity: Triphasic. Spectral ?? broadening. ?? Peroneal artery: 43 cm/s, phasicity: Triphasic. Spectral broadening. ?? Anterior tibial artery: 34 cm/s, phasicity: Biphasic. ?? Dorsalis pedis artery: 20 cm/s, phasicity:Biphasic. ? LEFT LEG: ?? Common femoral artery: 99 cm/s, phasicity: Triphasic. ?? Profunda femoris artery: 79 cm/s, phasicity: Triphasic. Spectral ?? broadening. ?? Superficial femoral artery (proximal): 78 cm/s, phasicity: Triphasic. ?? Superficial femoral artery (mid): 106 cm/s, phasicity: Triphasic. ?? Superficial femoral artery (distal): 93 cm/s, phasicity: Triphasic. ?? Popliteal artery: 57 cm/s, phasicity: Triphasic. ?? Posterior tibial artery: 84 cm/s, phasicity: Biphasic. Spectral ?? broadening. ?? Peroneal artery: 62 cm/s, phasicity: Triphasic. There is a focal ?? saccular irregularity of the vessel. ?? Anterior tibial artery: 54 cm/s, phasicity: Biphasic. Spectral ?? broadening. ?? Dorsalis pedis artery: 12 cm/s, phasicity: Monophasic. Spectral ?? broadening. ? ANKLE-BRACHIAL INDEX: ? Right: 1.2. ? Left: 1.21. ? ANKLE PVR WAVEFORMS: ? Right: Abnormal. ?? Left: Abnormal. ? US/US arterial duplex BI w/ KARLI ?? IMPRESSION: ? Right leg:Mild inflow disease right anterior tibialis and right ?? dorsalis pedis arteries. ? Left leg:Disease to the left dorsalis pedis artery. ?? 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 ? KARLI Reference: ?? - >1.4 = calcified vessels ?? - 0.9 - 1.4 = normal - no significant arterial disease ?? - 0.7 - 0.89 = mild peripheral arterial disease ?? - 0.51 - 0.69 = moderate peripheral arterial disease ?? - d 0.50 = severe peripheral arterial disease ?? - < .30 = critical arterial disease ? Electronically signed by: ??Braeden Orosco MD ??08/11/2024 08:52 AM ?? EDT RP ? Dictated By: ?Braeden Paul MD ? Signed By: ?<Electronically signed by Braeden Cordoba MD in OV> ? 08/11/24 0852 ? DD/ 1052 ? TD/TT: 08/10/24 1144 ? Cardiac Catheterization Technician: ? Procedure Note Robbie Jaime - 08/11/[address] [address] Ultrasound Report Signed Patient: Geovanna HobbsMR#: [id number] 74 : 1975Acct:[id number] Age/Sex: 49 / FADM Date: 08/10/24 Loc: HO.US Attending Dr: Cory Herzog MD Ordering Physician: Cory Herzog MD Date of Service: 08/10/24 Procedure(s): US arterial duplex BI w/ KARLI Accession Number(s): [id number] cc: Otilia Quiñones MD; Cory Herzog MD EXAMINATION: Noninvasive assessment of the bilateral lower extremities with ARTERIAL DUPLEX, ANKLE BRACHIAL INDICES (ABIs), and PULSE VOLUME RECORDINGS (PVRs). CLINICAL INFORMATION: Peripheral vascular disease. Smoking. TECHNIQUE: Duplex Doppler techniques with waveform analysis and measurement of velocities in the bilateral common femoral, profunda femoris, superficial femoral, popliteal and tibial arteries were performed. Additionally, ankle pulse volume recordings, ankle pressure measurements and ankle brachial indices were obtained of the lower extremity arterial system bilaterally. The study was performed only at rest. COMPARISON: None FINDINGS: DIRECT DUPLEX DOPPLER FINDINGS: RIGHT LEG: Common femoral artery: 113 cm/s, phasicity: Triphasic. Profunda femoris artery: 82 cm/s, phasicity: Triphasic. Spectral broadening. Superficial femoral artery (proximal): 79 cm/s, phasicity: Triphasic. Superficial femoral artery (mid): 105 cm/s, phasicity: Triphasic. Superficial femoral artery (distal): 63 cm/s, phasicity: Triphasic. Popliteal artery: 50 cm/s, phasicity: Triphasic. Posterior tibial artery: 91 cm/s, phasicity: Triphasic. Spectral broadening. Peroneal artery: 43 cm/s, phasicity: Triphasic. Spectral broadening. Anterior tibial artery: 34 cm/s, phasicity: Biphasic. Dorsalis pedis artery: 20 cm/s, phasicity:Biphasic. LEFT LEG: Common femoral artery: 99 cm/s, phasicity: Triphasic. Profunda femoris artery: 79 cm/s, phasicity: Triphasic. Spectral broadening. Superficial femoral artery (proximal): 78 cm/s, phasicity: Triphasic. Superficial femoral artery (mid): 106 cm/s, phasicity: Triphasic. Superficial femoral artery (distal): 93 cm/s, phasicity: Triphasic. Popliteal artery: 57 cm/s, phasicity: Triphasic. Posterior tibial artery: 84 cm/s, phasicity: Biphasic. Spectral broadening. Peroneal artery: 62 cm/s, phasicity: Triphasic. There is a focal saccular irregularity of the vessel. Anterior tibial artery: 54 cm/s, phasicity: Biphasic. Spectral broadening. Dorsalis pedis artery: 12 cm/s, phasicity: Monophasic. Spectral broadening. ANKLE-BRACHIAL INDEX: Right: 1.2. Left: 1.21. ANKLE PVR WAVEFORMS: Right: Abnormal. Left: Abnormal. US/US arterial duplex BI w/ KARLI IMPRESSION: Right leg:Mild inflow disease right anterior tibialis and right dorsalis pedis arteries. Left leg:Disease to the left dorsalis pedis artery. 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 KARLI Reference: - >1.4 = calcified vessels - 0.9 - 1.4 = normal - no significant arterial disease - 0.7 - 0.89 = mild peripheral arterial disease - 0.51 - 0.69 = moderate peripheral arterial disease - d 0.50 = severe peripheral arterial disease - < .30 = critical arterial disease Electronically signed by: Braeden Orosco MD 08/11/2024 08:52 AM EDT RP Dictated By: Braeden Paul MD Signed By: <Electronically signed by Braeden Cordoba MDin OV> 08/11/24 0852 DD/ 1052 TD/TT: 08/10/24 1144 Cardiac Catheterization Technician: [facility] External Provider CV VASC ULAR PROCEDURES Final Result [facility] [address] [place] [phone] * Chlamydia/N. Gonorrhoeae RNA, TMA, Urogenitial (06/26/2024 1:07 PM EST) CT PCR NOT DETECTED Not Detect. [facility] Comment:A not detected test result [...] psychologicalconsequences. NG PCR NOT DETECTED Not Detect. [facility] Comment:A not detected test result [...] PM EST 06/26/2024 2:40 PM EST Narrative [facility] - 06/27/2024 3:35 AM EST Urine Otilia Quiñones MD LAB MICROBIOLOGY - GENERAL OR DERABLES Final Result Performing Organization Address [facility] Co de Phone Number [facility] [address] [place] [phone] * Syphilis Screen (06/26/2024 12:59 PM EST) Syphilis Screen Nonreactive Nonreactive [facility] Blood 06/26/2024 12:5 9 PM EST 06/26/2024 2:34 PM EST Otilia Quiñones MD LAB BLOOD ORDERABLES Final Re sult Performing Organization Address [facility] Co de Phone Number [facility] [address] [place] [phone] * TSH W/Reflex to FT4 (06/26/2024 12:59 PM EST) TSH reflex Free T4 0.54 0.32 - 4.0 uIU/mL [facility] Blood Venous blood specimen / Unknown 06/26/2024 12:59 PM EST 06/26/2024 2:34 PM EST Otilia Quiñones MD LAB BLOOD ORDERABLES Final Re sult Performing Organization Address [facility] Co de Phone Number [facility] [address] [place] [phone] * Hepatitis C Antibody with Reflex to HCV, RNA, Quantitative, Real-Time PCR (06/26/2024 12:59 PM EST) [facility] Hepatitis C Antibody Nonreactive Nonreactive [facility] Comment:Antibodies to HCV no t detected; does not exclude early acuteHCV infection. Blood Venous blood specimen / Unknown 06/26/2024 12:59 PM EST 06/26/2024 2:34 PM EST Otilia Quiñones MD LAB BLOOD ORDERABLES Final Re sult Performing Organization Address [facility] de Phone Number [facility] [address] [place] [phone] * HIV-1/2 Antigen and Antibodies, Fourth Generation, with Reflexes (06/26/2024 12:59 PM EST) Pathologist [facility] HIV AB/AG Nonreactive Nonreactive [facility] Comment:HIV-1 p24 Ag and/or HIV-1/HIV-2 Ab not detected.A test result that is nonreactive does not exclude thepossibility of exposure to or infection with HIV-1 and/orHIV-2. Nonreactive results in this assay for individualswith prior exposure to HIV-1 and/or HIV-2 may be due toantigen and antibody levels that are below the limit ofdetection of this assay.The [place] HIV Ag/Ab Combo assay result andsupplemental assay results should be interpreted inconjunction with the patient's clinical presentation,history and other laboratory results. If the results areinconsistent with clinical evidence, additional testing issuggested to confirm the result. Blood Venous blood specimen / Unknown 06/26/2024 12:59 PM EST 06/26/2024 2:34 PM EST us Otilia Quiñones MD LAB BLOOD ORDERABLES Final Re sult [facility] [address] [place] [address] [phone] * FREDERIC Screen,IFA, with Reflex to Titer and Pattern (06/26/2024 12:59 PM EST) Anti Nuclear Antibody Screen NEGATIVE NEGATIVE [facility] Comment:FREDERIC IFA is a first [...] clinicallysuspected inflammatory myopathies.AC-0: NegativeInternational Consensus on FREDERIC Patterns(https://doi.org/10.1515/vwso-2847-1841)For additional information, please refer tohttp://education.[employer].Sribu/faq/HXO074(This link is being provided for informational/educational purposes only.)THIS TEST WAS PERFORMED AT:[employer] [place] [phone] NASSAR MD FREDERIC Titer TNP [facility] FREDERIC Pattern [facility] FREDERIC TITER 2 (REF LAB) [facility] FRED[facility]IC [facility] 2 [facility] T[facility] 3 [facility] FRED[facility]IC PATTERN 3 [facility] Blood Venous blood specimen / Unknown 06/26/2024 12:59 PM EST 06/26/2024 2:34 PM EST us Otilia Quiñones MD LAB BLOOD ORDERABLES Final Re sult Performing Organization Address [facility]/ZIP Co de Phone Number [facility] [address] [place] [phone] [phone] * (ABNORMAL) Hepatic Function Panel (06/26/2024 12:59 PM EST) Bilirubin, Total 0.4 0.0 - 1.0 mg/dL [facility] Bilirubin, Direct 0.2 0.0 - 0.5 mg/dL [facility] Aspartate Amino Transferase 41(H) 5 - 31 U/L [facility] Alanine Aminotransferase 53(H) 0 - 31 U/L [facility] Total Protein 7.5 6.5 - 8.0 g/dL [facility] Albumin Level 4.2 3.5 - 5.0 g/dL [facility] Alkaline Phosphatase 85 39 - 117 U/L [facility] Blood Venous blood specimen / Unknown 06/26/2024 12:59 PM EST 06/26/2024 2:34 PM EST us Otilia Quiñones MD LAB BLOOD ORDERABLES Final Re sult Performing Organization Address [facility] Co de Phone Number [facility] [address], [place] [phone] * BI Mammogram Diagnostic Tomosynthesis Bilateral (06/17/2024 11:18 AM EST) Anatomical Region Laterality Modality Breast Bilateral Mammography 06/17/2024 11:1 8 AM EST Narrative 06/17/2024 1:06 PM EST ? [facility] ? [address] ?[place] [address] ? Mammography Report ? Signed ? Patient: Hobbs,Geovanna ?MR#: [id number] ?? 74 ? : 1975 ?Acct:[id number] ? Age/Sex: 48 / F ?ADM Date: 01/15/25 ? Loc: HO.MAMMO ? Attending Dr: Yunier Bentley MD ? Ordering Physician: Yunier Bentley MD ?Results: 2Beni ?? gn Findings ? Date of Service: 06/17/24 ?Follow Up: 1 Year From Orig ?? inal Mammogram ? Procedure(s): MM tomosynthesis diagnostic BI ?? Accession Number(s): [id number] ? cc: Otilia Quiñones MD; Yunier Bentley [...] ??Criselda Jimenez DO ??06/17/2024 01:03 PM EST ? Dictated By: ?Criselda Jimenez DO ? Signed By: ?<Electronically signed by Criselda Jimenez, DO in OV> ? 06/17/24 1303 ? DD/ 1118 ? TD/TT: 06/17/24 1146 ? Cardiac Catheterization Technician: ? Procedure Note Addison, Image - 06/17/2024 [facility] [facility] [address] [place], [place] [address] Mammography Report Signed Patient: Geovanna HobbsMR#: [id number] 74 : 1975Acct:[id number] Age/Sex: 48 / FADM Date: 06/17/24 Loc: HO.MAMMO Attending Dr: Yunier Bentley MD Ordering Physician: Yunier Bentley MDResults: 2Beni gn Findings Date of Service: 06/17/24Follow Up: 1 Year From Orig inal Mammogram Procedure(s): MM tomosynthesis diagnostic BI Accession Number(s): [id number] cc: Otilia Quiñones MD; Yunier Bentley MD [...] Jimenez DO 06/17/2024 01:03 PM EST RP Workstation: [employer] Dictated By: Criselda Jimenez DO Signed By: <Electronically signed by Criselda Jimenez DO in OV> 06/17/24 1303 DD/ 1118 TD/TT: 06/17/24 1146 Cardiac Catheterization Technician: [facility] External Provider IMG BI PROCEDURES Final Result * THINPREP PAP (08/02/2020 9:01 AM EST) Clinical Information: None given [facility] COMMENT SEE COMMENT [facility] [...] historic and ?? current clinical information. ?? Power Tool Repair Technician : SEE COMMENT [facility] Comment: BK,CT(ASCP) CT screening location: [address] Interpretation/R esult: Negative for intraepithelial lesion or malignancy. [facility] LMP: 06/03/2020 [facility] Prev. BX: NONE GIVEN [facility]OUND[facility] N [facility] Prev. PAP: NONE GIVEN [facility]OUND[facility] ON LAB [facility] Review Power Tool Repair Technician : SEE COMMENT [facility] Comment: SL, CT(ASCP) CT screening location: [address] ??[address] SOURCE: None given [facility] Statement Of Adequacy: SEE COMMENT [facility] Comment: Satisfactory for evaluation. Endocervical/transformation zone component absent. 08/02/2020 9:01 AM EST Thania Alvarez CNM LAB PATHOLOGY ORDERABLES Final Result Performing Organization Address [facility] Co de Phone Number [facility] [address] * HPV mRNA E6/E7 (08/02/2020 9:01 AM EST) HPV nRNA E6/E7 Not Detected Not Detected [facility] Comment: Methodology: Professor Of Economics-Mediated Amplification This assay detects E6/E7 viral messenger RNA (mRNA) from 14 high-risk HPV types (16,18,31,33,35,39,45,51,52,56,58,59,66,68). ? The analytical performance characteristics of this assay have been determined by [employer]. The modifications have not been cleared or approved by the FDA. This assay has been validated pursuant to the CLIA regulations and is used for clinical purposes. ?? For additional information, please refer to http://education.[employer].Sribu/faq/GUK190s1 (This link if provided for information/ educational purposes only.) 08/02/2020 9:01 AM EST Thania Alvarez CNM LAB BLOOD ORDERABLES Kelly l Result Performing Organization Address [facility] Co de Phone Number [facility] [address] from Last 3 Months or Most Recently Relevant to Health Maintenance Insurance [facility] MEDICAID STAND ADULT Care Teams Health Care Administrator Relationship Specialty Start Date End Date Otilia Quiñones MD [address] [facility] [place] PCP - General Family Medicine 09/15/13
--- OUTSIDE RECORDS SUMMARY | 2024-09-16 11:02 | XMS_ITS | Encounter Summary ---
Author Organization [employer] Address [address] [place] [address] Care Team Providers Care Fiberglass Boat Finisher Name Role Phone Otilia Quiñones MD Primary Care Provider [phone] Encounter Details Date Type Department Care Team (Late st Contact Info) Description 03/28/2023 Abstract [facility] MEDICINE [address] [place] [address] Otilia Quiñones MD [address] [place], [place] [phone] Social History Tobacco Use Types Packs/Day Years [...] Description 09/24/2024 1:00 PM EDT Office Visit [facility] ADULT DENTAL [address] [place] [address] Yoshi Sandoval, DMD [address] [place] [address] 10/15/2024 11:00 AM EDT Office Visit [facility] MED & PEDS [address] [place] [address] Otilia Quiñones MD [address] [place] [address] documented as of this encounter Visit Diagnoses Not on filedocumented in this encounter Care Teams Fiberglass Boat Finisher Relationship Specialty Start Date End Date Otilia Quiñones MD [address] [place] [address] PCP - General Family Medicine 09/15/13 documented as of this encounter
--- OUTSIDE RECORDS SUMMARY | 2024-09-16 11:02 | XMS_ITS | Encounter Summary ---
Author Organization [facility] Address [address] [place] [address] 7t [place] [address] Care Team Providers Care Home Hospice Aide Name Role Phone Otilia Quiñones MD Primary Care Provider [phone] Encounter Details Date Type Department Care Team (Latest Contact Info) Description 08/25/2021 Abstract [facility] CONVERSIONS Dental, Provider, DDS Social History Tobacco [...] Description 09/24/2024 1:00 PM EDT Office Visit [facility] ADULT DENTAL [address] [place] [address] Yoshi Sandoval DMD [address] [place] [address] 10/15/2024 11:00 AM EDT Office Visit [facility] MED & PEDS [address] [place] [address] Otilia Quiñones MD [address] [place] [address] documented as of this encounter Visit Diagnoses Not on filedocumented in this encounter Care Teams Home Hospice Aide Relationship Specialty Start Date End Date Otilia Quiñones MD [address] [place] [address] PCP - General Family Medicine 09/15/13 documented as of this encounter
--- OUTSIDE RECORDS SUMMARY | 2024-09-16 11:02 | XMS_ITS | Encounter Summary ---
Author Organization [employer] [facility] Address [address] [place] [address] 7t [place] [address] Care Team Providers Care Stone Breaker Name Role Phone Otilia Quiñones MD Primary Care Provider [phone] Encounter Details Date Type Department Care Team (Latest Contact Info) Description 08/11/2020 Abstract [facility] CONVERSIONS Dental, Provider, DDS Social History Tobacco [facility] [address] [place] [address] Yoshi Sandoval DMD [address] [place] [address] 10/15/2024 11:00 AM EDT Office Visit [facility] MED & PEDS [address] [place] [address] Otilia Quiñones MD [address] [place] [address] documented as of this encounter Visit Diagnoses Not on filedocumented in this encounter Care Teams Stone Breaker Relationship Specialty Start Date End Date Otilia Quiñones MD [address] [place] [address] PCP - General Family Medicine 09/15/13 documented as of this encounter
== END 2024-09-16 09:49 | disposition home or self-care (01) ==
LOC: HO.XRAY 09:48
PROVIDERS: PCP Pediatrics; Visit Provider Pediatrics
DX: R13.12 Dysphagia, oropharyngeal phase (principal)
CPT/HCPCS: 74246

== ENCOUNTER → 2024-09-16 09:50 | Outpatient (BNV) | payer MEDICAID, SELFPAY | PROVIDERS: PCP Pediatrics; Visit Provider Radiology Diagnostic Radiology | DX: R13.10 Dysphagia, unspecified (principal) | CPT/HCPCS: 74246 ==

== ENCOUNTER 2024-09-17 13:51 | Outpatient (REF) | payer MEDICAID, SELFPAY ==
--- NOTE | ~2024-09-17 | US_ITS ---
EXAMINATION: US HEAD NECK SOFT TISSUE HISTORY: DYSPHAGIA, PAIN WITH SWALLOWING COMPARISON: There are no prior studies for comparison. FINDINGS: Sonographic examination of an area of pain in the lower neck was performed. No sonographic abnormality is identified. Incidental note is made of subcentimeter nodules in the right thyroid lobe. US/US soft tiss head and/or neck IMPRESSION: No sonographic abnormality is seen to correspond to the area of pain in the neck. Electronically signed by: Fredy Nino MD 09/18/2024 08:29 AM EDT
--- NOTE | ~2024-09-17 | US_ITS ---
EXAMINATION: US ABDOMEN LIMITED HISTORY: elevated liver tests, rule out fatty liver and gallstones TECHNIQUE: Real-time grayscale ultrasound imaging of the right upper quadrant was performed and images were reviewed. COMPARISON: Comparison is made with the prior examination dated 04/23/2024. FINDINGS: Liver: The right lobe of the liver measures 14.0 cm in size. The left lobe of the liver measures 8.5 cm in size. The liver demonstrates normal homogeneous echotexture. No focal mass or intrahepatic biliary ductal dilatation is identified. There is normal hepatopedal flow in the portal vein. Gallbladder and biliary tree: The gallbladder is unremarkable, without evidence of calculi, wall thickening, or pericholecystic fluid. There is no sonographic Marcelo sign. The common bile duct is normal in caliber measuring 5 mm. Right Kidney: The right kidney measures 11.0 cm in length. The right kidney is unremarkable, without evidence of masses, hydronephrosis, or calculi. Pancreas: The pancreatic head, neck, and body are unremarkable. The pancreatic tail is obscured by bowel gas. Abdominal aorta and inferior vena cava: The visualized portions of the abdominal aorta and inferior vena cava are normal in caliber. There is no free fluid in the right upper quadrant. US/US abdomen limited IMPRESSION: Unremarkable right upper quadrant ultrasound. Electronically signed by: Fredy Nino MD 09/17/2024 02:44 PM EDT
--- OUTSIDE RECORDS SUMMARY | 2024-09-17 16:56 | XMS_ITS | Encounter Summary ---
Author Organization [employer] Address [address] [facility] 7t [place] [address] Care Team Providers Care Social Work Manager Name Role Phone Otilia Quiñones MD Primary Care Provider [phone] Encounter Details Date Type Department Care Team (Late st Contact Info) Description 03/28/2023 Abstract [facility] MEDICINE [address] [place] [address] Otilia Quiñones MD [address] [place], [place] [phone] Social History Tobacco Use Types Packs/Day Years [...] 09/24/2024 1:00 PM EDT Office Visit [facility] ADULT DENTAL [address] [place] [address] Yoshi Sandoval, DMD [address] [place] [address] 10/15/2024 11:00 AM EDT Office Visit [facility] MED & PEDS [address] [place] [address] Otilia Quiñones MD [address] [place] [address] documented as of this encounter Visit Diagnoses Not on filedocumented in this encounter Care Teams Social Work Manager Relationship Specialty Start Date End Date Otilia Quiñones MD [address] [place] [address] PCP - General Family Medicine 09/15/13 documented as of this encounter
--- OUTSIDE RECORDS SUMMARY | 2024-09-17 16:57 | XMS_ITS | Encounter Summary ---
Author Organization [employer] Address [address] [facility] 7t [place] [address] Care Team Providers Care Varnishing Unit Tool Setter Name Role Phone Otilia Quiñones MD Primary Care Provider [phone] Reason for Visit * Reason Comments Med Refill Encounter Details Date Type Department Care Team ([facility] st Contact Info) Description 11/22/2023 Refill [facility] MED & PEDS [address] [place], [place] [phone] Otilia Quiñones MD [address] [place] [address] Social History Tobacco Use Types Packs/Day Years [...] Description 09/24/2024 1:00 PM EDT Office Visit [facility] ADULT DENTAL [address] [place] [address] Yoshi Sandoval, JUDI [address] [place] [address] 10/15/2024 11:00 AM EDT Office Visit [facility] MED & PEDS [address] [place] [address] Otilia Quiñones MD [address] [place] [address] documented as of this encounter Visit Diagnoses Not on filedocumented in this encounter Additional Health Concerns Assessment Noted Time PHQ-9 Depression Total Score: 0 07/03/19 24 10:45 AM EST documented as of this encounter Care Teams Varnishing Unit Tool Setter Relationship Specialty Start Date End Date Otilia Quiñones MD [address] [place] [address] PCP - General Family Medicine 09/15/13 documented as of this encounter
--- OUTSIDE RECORDS SUMMARY | 2024-09-17 16:57 | XMS_ITS | Encounter Summary ---
Author Organization [email or web address] [facility] Address [address] [place] [address] 7t [place] [address] Care Team Providers Care Rotary Machine Operator Name Role Phone Otilia Quiñones MD Primary Care Provider [phone] Encounter Details Date Type Department Care Team (Latest Contact Info) Description 08/25/2021 Abstract [facility] CONVERSIONS Dental, Provider, DDS Social History [...] 1:00 PM EDT Office Visit [facility] ADULT DENTAL [address] [place] [address] Yoshi Sandoval DMD [address] [place] [address] 10/15/2024 11:00 AM EDT Office Visit [facility] MED & PEDS [address] [place] [address] Otilia Quiñones MD [address] [place] [address] documented as of this encounter Visit Diagnoses Not on filedocumented in this encounter Care Teams Rotary Machine Operator Relationship Specialty Start Date End Date Otilia Quiñones MD [address] [place] [address] PCP - General Family Medicine 09/15/13 documented as of this encounter
--- OUTSIDE RECORDS SUMMARY | 2024-09-17 16:57 | XMS_ITS | Clinical Summary ---
Author Organization [employer] Address [address] [facility] 7t [place] [address] Care Team Providers Care Donkey Ride Operator Name Role Phone Otilia Quiñones MD Primary Care Provider [phone] Allergies No known active allergies Medications hydrOXYzine [...] Department Care Team Description 09/03/2024 Orders Only [facility] [address] [facility] [place] [address] Otilia Quiñones MD Transaminitis (Primary Dx) 08/14/2024 11:15 AM EDT Office Visit [facility] [address] [place] [address] Patsy Man MD Strep pharyngitis (Primary Dx); Pain with swallowing 08/14/2024 Travel 08/14/2024 Population Health Risk Score [facility] () Department [address] [place] [phone] Provider, Population Health Generic 08/13/2024 Telephone [facility] [address] [place] [address] Otilia Quiñones MD 08/10/2024 Orders Only [facility] External Provider, [facility] 07/30/2024 11:00 AM EST Office Visit [facility] [address] [place] [address] Dolores Jasmine 07/13/2024 11:00 AM EST Office Visit [facility] [address] [place] [address] Dolores Jasmine 07/08/2024 11:30 AM EST Office Visit [facility] [address] [place] [address] Yoshi Sandoval DMD Throat pain (Primary Dx) 06/30/2024 Telephone [facility] [address] [facility] [place] [address] Otilia Quiñones MD 06/26/2024 11:15 AM EST Office Visit [facility] [address] [place] [address] Otilia Quiñones MD Screening for colon cancer (Primary Dx); Routine screening for STI (sexually transmitted infection); Dietary counseling; Exercise counseling; Symptomatic varicose veins of both lower extremities; Primary insomnia; Oropharyngeal dysphagia 06/26/2024 Travel 06/25/2024 Telephone [facility] [address] [place] [address] Otilia Quiñones MD No Show 06/19/2024 11:30 AM EST Office Visit [facility] [address] [place] [address] Yoshi Sandoval DMD Full coverage crown needed for root canal-treated tooth (Primary Dx) from Last 3 Months Immunizations Name Administration [...] Description 09/24/2024 1:00 PM EDT Office Visit [facility] [address] [place] [address] Yoshi Sandoval DMD [address] [place] [address] 10/15/2024 11:00 AM EDT Office Visit [facility] [address] [place] [address] Otilia Quiñones MD [address] [place] [address] Health Maintenance Due Date Last Done Comments [...] Procedure Name Priority Date/Time Associated Diagnosis Comments US ABDOMEN LIMITED Routine 09/17/2024 2: 03 PM EDT Transaminitis FL UPPER GI W AIR W BARIUM [...] Recently Relevant to Health Maintenance Results * US Abdomen Limited (09/17/2024 2:03 PM EDT) Anatomical Region Laterality Modality Abdomen Ultrasound 09/17/2024 2:03 PM EDT Narrative 09/17/2024 2:47 PM EDT ? [facility] ?[address] ? [place] [address] ? Ultrasound Report ? Signed ? Patient: Hobbs,Geovanna ?MR#: [id number] ?? 74 ? : 1975 ?Acct:[id number] ? Age/Sex: 49 / F ?ADM Date: 04/17/25 ? Loc: HO.HMGCX ? Attending Dr: Patsy Man MD ? Ordering Physician: Otilia Quiñones MD ?? Date of Service: 09/17/24 ?? Procedure(s): US abdomen limited ?? Accession Number(s): [id number] ? cc: Otilia Quiñones MD ? EXAMINATION: ??US ABDOMEN LIMITED ? HISTORY: elevated liver tests, rule out fatty liver and gallstones ? TECHNIQUE: Real-time grayscale ultrasound imaging of the right upper ?? quadrant was performed and images were reviewed. ? COMPARISON: Comparison is made with the prior examination dated ?? 04/23/2024. ? FINDINGS: ?? Liver: ?? The right lobe of the liver measures 14.0 cm in size. The left ?? lobe of the liver measures 8.5 cm in size. The liver demonstrates ?? normal homogeneous echotexture. ??No focal mass or intrahepatic biliary ?? ductal dilatation is identified. ??There is normal hepatopedal flow in ?? the portal vein. ? Gallbladder and biliary tree: The gallbladder is unremarkable, without ?? evidence of calculi, wall thickening, or pericholecystic fluid. ??There ?? is no sonographic Marcelo sign. ??The common bile duct is normal in ?? caliber measuring 5 mm. ? Right Kidney: ??The right kidney measures 11.0 cm in length. ??The right ?? kidney is unremarkable, without evidence of masses, hydronephrosis, or ?? calculi. ? Pancreas: The pancreatic head, neck, and body are unremarkable. The ?? pancreatic tail is obscured by bowel gas. ? Abdominal aorta and inferior vena cava: The visualized portions of the ?? abdominal aorta and inferior vena cava are normal in caliber. ? There is no free fluid in the right upper quadrant. ? US/US abdomen limited ?? IMPRESSION: ? Unremarkable right upper quadrant ultrasound. ? Electronically signed by: ??Fredy Nino MD ??09/17/2024 02:44 PM EDT ?? RP ? Dictated By: ?Fredy Nino MD ? Signed By: ?<Electronically signed by Fredy Nino MD in OV> ?09/17/24 1444 ? DD/ 1403 ? TD/TT: 09/17/24 1410 ? Garnett Machine Operator: ? Procedure Note Donotuseinterpreter, Image - 09/17/2024 [facility] [address] [place] [address] Dr. Barraza, [place] [address] Ultrasound Report Signed Patient: Geovanna HobbsMR#: [id number] 74 : 1975Acct:[id number] Age/Sex: 49 / FADM Date: 09/17/24 Loc: HO.HMGCX Attending Dr: Patsy Man MD Ordering Physician: Otilia Quiñones MD Date of Service: 09/17/24 Procedure(s): US abdomen limited Accession Number(s): [id number] cc: Otilia Quiñones MD EXAMINATION: US ABDOMEN LIMITED HISTORY: elevated liver tests, rule out fatty liver and gallstones TECHNIQUE: Real-time grayscale ultrasound imaging of the right upper quadrant was performed and images were reviewed. COMPARISON: Comparison is made with the prior examination dated 04/23/2024. FINDINGS: Liver: The right lobe of the liver measures 14.0 cm in size. The left lobe of the liver measures 8.5 cm in size. The liver demonstrates normal homogeneous echotexture. No focal mass or intrahepatic biliary ductal dilatation is identified. There is normal hepatopedal flow in the portal vein. Gallbladder and biliary tree: The gallbladder is unremarkable, without evidence of calculi, wall thickening, or pericholecystic fluid. There is no sonographic Marcelo sign. The common bile duct is normal in caliber measuring 5 mm. Right Kidney: The right kidney measures 11.0 cm in length. The right kidney is unremarkable, without evidence of masses, hydronephrosis, or calculi. Pancreas: The pancreatic head, neck, and body are unremarkable. The pancreatic tail is obscured by bowel gas. Abdominal aorta and inferior vena cava: The visualized portions of the abdominal aorta and inferior vena cava are normal in caliber. There is no free fluid in the right upper quadrant. US/US abdomen limited IMPRESSION: Unremarkable right upper quadrant ultrasound. Electronically signed by: Fredy Nino MD 09/17/2024 02:44 PM EDT RP Dictated By: Fredy Nino MD Signed By: <Electronically signed by Fredy Nino MD in OV> 09/17/24 1444 DD/ 1403 TD/TT: 09/17/24 1410 Garnett Machine Operator: us Otilia Quiñones MD IMG US PROCEDURES Final Resul t * FL Upper GI w/air w/Barium Swallow (09/16/2024 9:50 AM EDT) Anatomical Region Laterality Modality Body Radiographic Renée ging 09/16/2024 9:50 AM EDT Narrative 09/16/2024 10:57 AM EDT ? [facility] ?[address] ?[place] [address] ? Fluoroscopy Report ? Signed ? Patient: Hobbs,Geovanna ?MR#: [id number] ?? 74 ? : 1975 ?Acct:[id number] ? Age/Sex: 49 / F ?ADM Date: 09/16/24 ? Loc: HO.XRAY ? Attending Dr: Otilia Quiñones MD ? Ordering Physician: Otilia Quiñones MD ?? Date of Service: 09/16/24 ?? Procedure(s): FL upper GI w air w Ba Swallow ?? Accession Number(s): [id number] ? cc: Otilia Quiñones MD ? EXAMINATION: [...] DD/ 0950 ? TD/TT: 09/16/24 1020 ? Garnett Machine Operator: ? Procedure Note Robbie Jaime - 09/16/[address] [address] Fluoroscopy Report Signed Patient: Geovanna HobbsMR#: [id number] 74 : 1975Acct:[id number] Age/Sex: 49 / FADM Date: 09/16/24 Loc: HO.XRAY Attending Dr: Otilia Quiñones MD Ordering Physician: Otilia Quiñones MD Date of Service: 09/16/24 Procedure(s): FL upper GI w air w Ba Swallow Accession Number(s): [id number] cc: Otilia Quiñones MD EXAMINATION: XR FLUOROSCOPY [...] 09/16/24 1055 DD/ 0950 TD/TT: 09/16/24 1020 Garnett Machine Operator: Otilia Quiñones MD IMG FLUOROSCOPY PROCEDURES Fi nal Result * POCT Rapid Covid-19 BinaxNOW (08/14/2024 11:30 AM EDT) [facility] Rapid COVID Ag Negative QC Media Lot # [id number] Lot# Expiration Date [id number] Swab 08/14/2024 11:3 0 AM EDT Patsy Man MD POINT OF CARE TEST ENTER/EDIT OR DERABLES Final Result * (ABNORMAL) POCT Rapid Strep A OSOM (08/14/2024 11:29 AM EDT) [facility] Rapid Strep A Screen Positive( A) Negative, None Detected QC Media Lot # [id number] Lot# Expiration Date [id number] Swab 08/14/2024 11:2 9 AM EDT us Patsy Man MD POINT OF CARE TEST ENTER/EDIT OR DERABLES Final Result * VASC US Lower Extremity Arterial Duplex Bilateral With Karli (08/10/2024 10:52 AM EDT) 08/10/2024 10:5 2 AM EDT Narrative [facility] - 08/11/2024 8:55 AM EDT ? [facility] ?[address] ?[place] [address] ? Ultrasound Report ? Signed ? Patient: Hobbs,Geovanna ?MR#: [id number] ?? 74 ? : 1975 ?Acct:[id number] ? Age/Sex: 49 / F ?ADM Date: 08/10/24 ? Loc: HO.US ? Attending Dr: Cory Herzog MD ? Ordering Physician: Cory Herzog MD ?? Date of Service: 08/10/24 ?? Procedure(s): US arterial duplex BI w/ KARLI ?? Accession Number(s): [id number] ? cc: Otilia Quiñones MD; Cory Herzog [...] DD/ 1052 ? TD/TT: 08/10/24 1144 ? Garnett Machine Operator: ? Procedure Note Donotuseinterpreter, Image - 08/11/2024 [place] [address] Ultrasound Report Signed Patient: Geovanna HobbsMR#: [id number] 74 : 1975Acct:[id number] Age/Sex: 49 / FADM Date: 08/10/24 Loc: HO.US Attending Dr: Cory Herzog MD Ordering Physician: Cory Herzog MD Date of Service: 08/10/24 Procedure(s): US arterial duplex BI w/ KARLI Accession Number(s): [id number] cc: Otilia Quiñones MD; Cory Herzog MD [...] Braeden Orosco MD 08/11/2024 08:52 AM EDT Dictated By: Braeden Paul MD Signed By: <Electronically signed by Braeden Cordoba MDin OV> 08/11/24 0852 DD/ 1052 TD/TT: 08/10/24 1144 Garnett Machine Operator: us [facility] External Provider CV VASC ULAR PROCEDURES Final Result [facility] [address] [place] [address] * Chlamydia/N. Gonorrhoeae RNA, TMA, Urogenitial (06/26/2024 1:07 PM EST) CT PCR NOT DETECTED Not Detect. [facility] Comment:A not detected test result does [...] psychologicalconsequences. NG PCR NOT DETECTED Not Detect. [facility] Comment:A not detected test result does [...] PM EST 06/26/2024 2:40 PM EST Narrative [facility] - 06/27/2024 3:35 AM EST Urine us Otilia Quiñones MD LAB MICROBIOLOGY - GENERAL OR DERABLES Final Result [facility] [address] [place] [phone] * Syphilis Screen (06/26/2024 12:59 PM EST) Syphilis Screen Nonreactive Nonreactive [facility] Blood 06/26/2024 12:5 9 PM EST 06/26/2024 2:34 PM EST Otilia Quiñones MD LAB BLOOD ORDERABLES Final Re sult Performing Organization Address [facility] de Phone Number [facility] [address] [place] [phone] * TSH W/Reflex to FT4 (06/26/2024 12:59 PM EST) TSH reflex Free T4 0.54 0.32 - 4.0 uIU/mL [facility] Blood Venous blood specimen / Unknown 06/26/2024 12:59 PM EST 06/26/2024 2:34 PM EST Otilia Quiñones MD LAB BLOOD ORDERABLES Final Re sult Performing Organization Address [facility] Phone Number [facility] [address] [place] [phone] * Hepatitis C Antibody with Reflex to HCV, RNA, Quantitative, Real-Time PCR (06/26/2024 12:59 PM EST) Hepatitis C Antibody Nonreactive Nonreactive [facility] Comment:Antibodies to HCV no t detected; does not exclude early acuteHCV infection. Blood Venous blood specimen / Unknown 06/26/2024 12:59 PM EST 06/26/2024 2:34 PM EST Otilia Quiñones MD LAB BLOOD ORDERABLES Final Re sult Performing Organization Address [facility] Co de Phone Number [facility] [address] [place] [address] [place] [phone] * HIV-1/2 Antigen and Antibodies, Fourth Generation, with Reflexes (06/26/2024 12:59 PM EST) HIV AB/AG Nonreactive Nonreactive [facility] Comment:HIV-1 p24 Ag and/or HIV-1/HIV-2 Ab not detected.A test result that is nonreactive does not exclude thepossibility of exposure to or infection with HIV-1 and/orHIV-2. Nonreactive results in this assay for individualswith prior exposure to HIV-1 and/or HIV-2 may be due toantigen and antibody levels that are below the limit ofdetection of this assay.The [employer] HIV Ag/Ab Combo assay result andsupplemental assay results should be interpreted inconjunction with the patient's clinical presentation,history and other laboratory results. If the results areinconsistent with clinical evidence, additional testing issuggested to confirm the result. Blood Venous blood specimen / Unknown 06/26/2024 12:59 PM EST 06/26/2024 2:34 PM EST us Otilia Quiñones MD LAB BLOOD ORDERABLES Final Re sult [facility] [address] [place] [address] [phone] * FREDERIC Screen,IFA, with Reflex to Titer and Pattern (06/26/2024 12:59 PM EST) Anti Nuclear Antibody Screen NEGATIVE NEGATIVE [facility] Comment:FREDERIC IFA is a first l [...] clinicallysuspected inflammatory myopathies.AC-0: NegativeInternational Consensus on FREDERIC Patterns(https://doi.org/10.1515/hycm-2305-6744)For additional information, please refer tohttp://education.Zhaopin/faq/OKZ139(This link is being provided for informational/educational purposes only.)THIS TEST WAS PERFORMED AT:[facility] [address] [phone] NASSAR MD FREDERIC Titer TNP [facility] FREDERIC Pattern TNP [facility] FREDERIC TITER 2 (REF LAB) TNP [facility] FREDERIC Pattern 2 [facility] TITER 3 [facility] FRED[facility]IC PATTERN 3 [facility] Blood Venous blood specimen / Unknown 06/26/2024 12:59 PM EST 06/26/2024 2:34 PM EST Otilia Quiñones MD LAB BLOOD ORDERABLES Final Re sult [facility] [address] [place] [phone] * (ABNORMAL) Hepatic Function Panel (06/26/2024 12:59 PM EST) Bilirubin, Total 0.4 0.0 - 1.0 mg/dL [facility] Bilirubin, Direct 0.2 0.0 - 0.5 mg/dL [facility] Aspartate Amino Transferase 41(H) 5 - 31 U/L [facility] Alanine Aminotransferase 53(H) 0 - 31 U/L [facility] Total Protein 7.5 6.5 - 8.0 g/dL [facility] Albumin Level 4.2 3.5 - 5.0 g/dL [facility] Alkaline Phosphatase 85 39 - 117 U/L [facility] Blood Venous blood specimen / Unknown 06/26/2024 12:59 PM EST 06/26/2024 2:34 PM EST us Otilia Quiñones MD LAB BLOOD ORDERABLES Final Re dirkt [facility] [address] [place] [phone] [phone] * BI Mammogram Diagnostic Tomosynthesis Bilateral (06/17/2024 11:18 AM EST) Anatomical Region Laterality Modality Breast Bilateral Mammography 06/17/2024 11:1 8 AM EST Narrative 06/17/2024 1:06 PM EST ? [facility] [place] ? [address] ?[place] [address] ? Mammography Report ? Signed ? Patient: Geovanna Hobbs ?MR#: [id number] ?? 74 ? : 1975 ?Acct:[id number] ? Age/Sex: 48 / F ?ADM Date: 06/17/24 ? Loc: HO.MAMMO ? Attending Dr: Yunier Bentley MD ? Ordering Physician: Yunier Bentley MD ?Results: 2Beni ?? gn Findings ? Date of Service: 06/17/24 ?Follow Up: 1 Year From Orig ?? inal Mammogram ? Procedure(s): MM tomosynthesis diagnostic BI ?? Accession Number(s): [id number] ? cc: Otilia Quiñones MD; Yunier Bentley [...] DD/ 1118 ? TD/TT: 06/17/24 1146 ? Garnett Machine Operator: ? Procedure Note Addison, Robbie - 06/17/2024 [facility] [address] [place] [address] [place] [address] Mammography Report Signed Patient: Geovanna HobbsMR#: [id number] 74 : 1975Acct:[id number] Age/Sex: 48 / FADM Date: 06/17/24 Loc: HO.MAMMO Attending Dr: Yunier Bentley MD Ordering Physician: Yunier Bentley MDResults: 2Beni gn Findings Date of Service: 06/17/24Follow Up: 1 Year From [facility] ina Mammogram Procedure(s): MM tomosynthesis diagnostic BI Accession Number(s): [id number] cc: Otilia Quiñones MD; Yunier Bentley MD [...] by: Criselda Jimenez DO 06/17/2024 01:03 PM [facility] Dictated By: Criselda Jimeenz DO Signed By: <Electronically signed by Criselda Jimenez DO in OV> 06/17/24 1303 DD/ 1118 TD/TT: 06/17/24 1146 Garnett Machine Operator: [facility] External Provider IMG BI PROCEDURES Final [...] historic and ?? current clinical information. ?? Lap Grinder : SEE COMMENT [facility] Comment: BK,CT(ASCP) CT screening location: [address] Interpretation/R esult: Negative for intraepithelial lesion or malignancy. [facility] LMP: 06/03/2020 [facility] Prev. BX: NONE GIVEN [facility] Prev. PAP: NONE GIVEN [facility] Review Lap Grinder : SEE COMMENT [facility] Comment: SL, CT(ASCP) CT screening location: [address] ??[address] SOURCE: None given [facility] Statement Of Adequacy: SEE COMMENT [facility] Comment: Satisfactory for evaluation. Endocervical/transformation zone component absent. 08/02/2020 9:01 AM EST Thania [facility] LAB PATHOLOGY ORDERABLES Final Result Performing Organization Address City/State/[facility] Co de Phone Number [facility] [address] * HPV mRNA E6/E7 (08/02/2020 9:01 AM EST) HPV nRNA E6/E7 Not Detected Not Detected [facility] Comment: Methodology: Surgical Services Manager-Mediated Amplification This assay detects E6/E7 viral messenger RNA (mRNA) from 14 high-risk HPV types (16,18,31,33,35,39,45,51,52,56,58,59,66,68). ? The analytical performance characteristics of this assay have been determined by [employer]. The modifications have not been cleared or approved by the FDA. This assay has been validated pursuant to the CLIA regulations and is used for clinical purposes. ?? For additional information, please refer to http://education.MTailor.RentJuice/faq/JMB092z8 (This link if provided for information/ educational purposes only.) 08/02/2020 9:01 AM EST us Thania [facility] LAB BLOOD ORDERABLES Kelly l Result [facility] [address] from Last 3 Months or Most Recently Relevant to Health Maintenance Insurance [facility] C3 DENTAL-[facility] MEDICAID STAND ADULT Care Teams Donkey Ride Operator Relationship Specialty Start Date End Date Otilia Quiñones MD [address] [place] [address] [place] [address] PCP - General Family Medicine 09/15/13
--- OUTSIDE RECORDS SUMMARY | 2024-09-17 16:57 | XMS_ITS | Encounter Summary ---
Author Organization [employer] [facility] Address [address] [place] [address] 7t [place] [address] Care Team Providers Care Taker Off Drying Kiln Name Role Phone Otilia Quiñones MD Primary Care Provider [phone] Encounter Details Date Type Department Care Team (Latest Contact Info) Description 08/11/2020 Abstract [facility] CONVERSIONS Dental, Provider, DDS Social [...] Description 09/24/2024 1:00 PM EDT Office Visit [facility] [address] [place] [address] Yoshi Sandoval DMD [address] [place] [address] 10/15/2024 11:00 AM EDT Office Visit [facility] [address] [place] [address] Otilia Quiñones MD [address] [place] [address] documented as of this encounter Visit Diagnoses Not on filedocumented in this encounter Care Teams Taker Off Drying Kiln Relationship Specialty Start Date End Date Otilia Quiñones MD [address] [place] [address] PCP - General Family Medicine 09/15/13 documented as of this encounter
== END 2024-09-17 13:52 | disposition home or self-care (01) ==
LOC: HO.HMGCX 13:51
PROVIDERS: PCP Pediatrics; Visit Provider Student in an Organized Health Care Education/Training Program
DX: R74.01 Elevation of levels of liver transaminase levels (principal); R13.10 Dysphagia, unspecified
CPT/HCPCS: 76536; 76705

== ENCOUNTER → 2024-09-17 13:54 | Outpatient (BNV) | payer MEDICAID, SELFPAY | PROVIDERS: PCP Pediatrics; Visit Provider Radiology Diagnostic Radiology | DX: R74.01 Elevation of levels of liver transaminase levels (principal) | CPT/HCPCS: 76705 ==

== ENCOUNTER 2024-10-07 10:04 | Outpatient (REF) | payer MEDICAID, SELFPAY ==
--- NOTE | ~2024-10-07 | US_ITS ---
EXAMINATION: US LOWER EXTREMITY VENOUS (REFLUX EXAM), BILATERAL CLINICAL INFORMATION: Varices. COMPARISON: None. TECHNIQUE: Color flow triplex imaging and compression Doppler was performed to evaluate both the deep and the superficial systems bilaterally. To evaluate the superficial system, the examination was performed in the upright position. Color-flow Doppler ultrasound and compression ultrasound were utilized. In addition, maneuvers were utilized to demonstrate reflux. FINDINGS: 1. DEEP VENOUS ULTRASOUND OF THE RIGHT LOWER EXTREMITY: Common Femoral Vein: Compressible, normal respiratory variation and augmented flow. Femoral Vein: Compressible, normal color flow and augmentation. Popliteal Vein: Compressible, normal augmentation. Deep Reflux: There is no evidence of reflux in the deep system in either the common femoral vein, superficial femoral or the popliteal vein. There is no evidence of a Ray's cyst. 2. SUPERFICIAL ULTRASOUND WITH DOPPLER OF RIGHT LOWER EXTREMITY: GREAT SAPHENOUS VEIN: Saphenofemoral Junction: 0.9 cm; Reflux: 0 ms Proximal Thigh: 0.4 cm; Reflux: 0 ms Mid Thigh: 0.3 cm; Reflux: 0 ms Distal Thigh: 0.3 cm; Reflux: 0 ms At Knee: 0.6 cm; Reflux: 0 ms Proximal Calf: 0.3 cm; Reflux: 2648 ms Mid Calf: 0.1 cm; Reflux: 0 ms Distal Calf: 0.1 cm; Reflux: 0 ms DUPLICATED MEDIAL GREAT SAPHENOUS VEIN: Diameter: None imaged Reflux: NA DUPLICATED LATERAL GREAT SAPHENOUS VEIN: Diameter: 0.3 cm. Reflux: NA SMALL SAPHENOUS VEIN: Saphenopopliteal Junction: 0.1 cm; Reflux: 0 ms Proximal: 0.3 cm; Reflux: 0 ms Distal: 0.2 cm; Reflux: 0 ms VEIN OF GIACOMINI: Size: NA Reflux: NA PERFORATORS: Location: Small saphenous vein mid segment and proximal calf and heel. Size: 0.2-0.3 cm. Reflux: 1436 ms at the heel. VARICOSITIES: Location: Small saphenous vein, mid segment, mid thigh and proximal calf. Size: 0.3 cm. Reflux: 2724 ms at the proximal calf. 3. DEEP VENOUS ULTRASOUND OF THE LEFT LOWER EXTREMITY: Common Femoral Vein: Compressible, normal respiratory variation and augmented flow. Femoral Vein: Compressible, normal color flow and augmentation. Popliteal Vein: Compressible, normal augmentation. Deep Reflux: There is no evidence of reflux in the deep system in either the common femoral vein, superficial femoral or the popliteal vein. There is no evidence of a Ray's cyst. 4. SUPERFICIAL ULTRASOUND WITH DOPPLER OF LEFT LOWER EXTREMITY: GREAT SAPHENOUS VEIN: Saphenofemoral Junction: 0.8 cm; Reflux: 0 ms Proximal Thigh: 0.2 cm; Reflux: 0 ms Mid Thigh: 0.2 cm; Reflux: 0 ms Distal Thigh: 0.2 cm; Reflux: 0 ms At Knee: 0.3 cm; Reflux: 0 ms Proximal Calf: 0.3 cm; Reflux: 2932 ms Mid Calf: 0.2 cm; Reflux: 0 ms Distal Calf: 0.2 cm; Reflux: 0 ms DUPLICATED MEDIAL GREAT SAPHENOUS VEIN: Diameter: None imaged Reflux: NA DUPLICATED LATERAL GREAT SAPHENOUS VEIN: Diameter: 0.4 cm. Reflux: NA SMALL SAPHENOUS VEIN: Saphenopopliteal Junction: 0.1 cm; Reflux: 0 ms Proximal: 0.2 cm; Reflux: 0 ms Distal: 0.1 cm; Reflux: 0 ms VEIN OF GIACOMINI: Size: 0.2 cm. Reflux: NA PERFORATORS: Location: Small saphenous vein proximal to mid segment and proximal to mid calf. Size: 0.2-0.3 cm. Reflux: NA VARICOSITIES: Location: Proximal to distal calf. Size: 0.3 cm. Reflux: 3132 ms in the proximal calf. US/US venous duplex LE BI IMPRESSION: Right: Venous insufficiency, great saphenous vein below the knee. Perforators in the heel with reflux. 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 Left: Venous insufficiency, great saphenous vein below the knee. 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 Electronically signed by: Braeden Orosco MD 10/07/2024 11:30 AM EDT
--- OUTSIDE RECORDS SUMMARY | 2024-10-07 11:15 | XMS_ITS | Encounter Summary ---
Author Organization [employer] Address [address] [facility] 7t [place] [address] Care Team Providers Care Air Lift Operator Name Role Phone Otilia Quiñones MD Primary Care Provider [phone] Reason for Visit * Reason Comments Med Refill Encounter Details Date Type Department Care Team ([facility] st Contact Info) Description 11/22/2023 Refill [facility] MED & PEDS [address] [place] [address] Otilia Quiñones MD [address] [place] [address] Social History Tobacco Use Types Packs/Day Years [...] Upcoming Encounters Date Type Department Care Team ([facility] st Contact Info) Description 10/15/2024 11:00 AM EDT Office Visit [facility] MED & PEDS [address] [place] [address] Otilia Quiñones MD [address] [place] [address] documented as of this encounter Visit Diagnoses Not on filedocumented in this encounter Additional Health Concerns Assessment Noted Time PHQ-9 Depression Total Score: 0 07/03/19 24 10:45 AM EST documented as of this encounter Care Teams Air Lift Operator Relationship Specialty Start Date End Date Otilia Quiñones MD [address] [place] [address] PCP - General Family Medicine 09/15/13 documented as of this encounter
--- OUTSIDE RECORDS SUMMARY | 2024-10-07 11:15 | XMS_ITS | Clinical Summary ---
Author Organization [employer] Address [address] [facility] 7t [place] [address] Care Team Providers Care Orthopedic Nurse Practitioner Name Role Phone Otilia Quiñones MD Primary Care Provider [phone] Allergies No known active allergies Medications hydrOXYzine HCl (Atarax) 25 MG tablet Take 1 tablet (25 mg) by mouth if needed at bedtime for itching. 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 Will refill her weekly dose. Prolapsed hemorrhoids 03/04/2018 Encounters Date Type Department Care Team Description 09/23/2024 Telephone [facility] MED & PEDS [address] [place] [address] Otilia Quiñones MD 09/23/2024 Telephone [facility] [address] [place] [address] Otilia Quiñones MD 09/23/2024 Orders Only [facility] [address] [place] [address] Otilia Quiñones MD Hiatal hernia (Primary Dx); Schatzki's ring; Dysphagia, unspecified type 09/03/2024 Orders Only [facility] [address] [place] [address] Otilia Quiñones MD Transaminitis (Primary Dx) 08/14/2024 11:15 AM EDT Office Visit [facility] [address] [place] [address] Patsy Man MD Strep pharyngitis (Primary Dx); Pain with swallowing 08/14/2024 Travel 08/14/2024 Population Health [facility] Department [address] [place] [phone] Provider, Population Health Generic 08/13/2024 Telephone [facility] [address] [place] [address] Otilia Quiñones MD 08/10/2024 Orders Only [facility] External Provider, [facility] 07/30/2024 11:00 AM EST Office Visit [facility]ULT D[facility] [address] [place] [address] Dolores Jasmine 07/13/2024 11:00 AM EST Office Visit [facility] [address] [place] [address] Dolores Jasmine from Last 3 Months Immunizations Name Administration [...] Care Team (Late st Contact Info) Description 10/15/2024 11:00 AM EDT Office Visit [facility] [address] [place] [address] Otilia Quiñones MD [address] [place], [place] [phone] Health Maintenance Due Date Last Done Comments [...] Name Priority Date/Time Associated Diagnosis Comments US HEAD NECK SOFT TISSUE Routine 09/17/2024 2:13 PM EDT Pain with swallowing US ABDOMEN LIMITED Routine 09/17/2024 2: 03 [...] PER QUADRANT Routine 07/13/2024 11:00 AM EST HEPATITIS C AB W/REFL TO HCV RNA, QN, PCR Routine 06/26/2024 12:59 PM EST Screening for colon cancer Routine screening for STI (sexually transmitted infection) HIV 1/2 ANTIGEN/ANTIBODY, FOURTH GENERATION W/RFL Routine 06/26/2024 12:59 PM EST Screening for colon cancer Routine screening for STI (sexually transmitted infection) BI MAMMOGRAM DIAGNOSTIC TOMOSYNTHESIS BILATERAL Routine 06/17/2024 [...] Relevant to Health Maintenance Results * US Head Neck Soft Tissue (09/17/2024 2:13 PM EDT) Anatomical Region Laterality Modality Head, Neck Ultrasound 09/17/2024 2:13 PM EDT Narrative 09/18/2024 8:32 AM EDT ? [facility] ?[address] ? [place] [address] ? Ultrasound Report ? Signed ? Patient: Hobbs,Geovanna ?MR#: [id number] ?? 74 ? : 1975 ?Acct:[id number] ? Age/Sex: 49 / F ?ADM Date: 04/17/25 ? Loc: HO.HMGCX ? Attending Dr: Patsy Man MD ? Ordering Physician: Patsy Man MD ?? Date of Service: 09/17/24 ?? Procedure(s): US soft tiss head and/or neck ?? Accession Number(s): [id number] ? cc: Otilia Quiñones MD; Patsy Man MD ? EXAMINATION: ??US HEAD NECK SOFT TISSUE ? HISTORY: DYSPHAGIA, PAIN WITH SWALLOWING ? COMPARISON: There are no prior studies for comparison. ? FINDINGS: ??Sonographic examination of an area of pain in the lower neck ?? was performed. No sonographic abnormality is identified. Incidental ?? note is made of subcentimeter nodules in the right thyroid lobe. ? US/US soft tiss head and/or neck ?? IMPRESSION: ?? No sonographic abnormality is seen to correspond to the area of pain in ?? the neck. ? Electronically signed by: ??Fredy Nino MD ??09/18/2024 08:29 AM EDT ? Dictated By: ?Fredy Nino MD ? Signed By: ?<Electronically signed by Fredy Nino MD in OV> ?09/18/24 0829 ? DD/ 1413 ? TD/TT: 09/17/24 1425 ? Customer Success Advocate: ? Procedure Note Addison, Image - 09/18/2024 [facility] [address] [place] [address] [place] [address] Ultrasound Report Signed Patient: Geovanna HobbsMR#: [id number] 74 : 1975Acct:[id number] Age/Sex: 49 / FADM Date: 09/17/24 Loc: HO.HMGCX Attending Dr: Patsy Man MD Ordering Physician: Patsy Man MD Date of Service: 09/17/24 Procedure(s): US soft tiss head and/or neck Accession Number(s): [id number] cc: Otilia Quiñones MD; Patsy Man MD EXAMINATION: US HEAD NECK SOFT TISSUE HISTORY: DYSPHAGIA, PAIN WITH SWALLOWING COMPARISON: There are no prior studies for comparison. FINDINGS: Sonographic examination of an area of pain in the lower neck was performed. No sonographic abnormality is identified. Incidental note is made of subcentimeter nodules in the right thyroid lobe. US/US soft tiss head and/or neck IMPRESSION: No sonographic abnormality is seen to correspond to the area of pain in the neck. Electronically signed by: Fredy Nino MD 09/18/2024 08:29 AM EDT RP Dictated By: Fredy Nino MD Signed By: <Electronically signed by Fredy Nino MD in OV> 09/18/24 0829 DD/ 1413 TD/TT: 09/17/24 1425 Customer Success Advocate: us Patsy Man MD IMG US PROCEDURES Edited Result - Final * US Abdomen Limited (09/17/2024 2:03 PM EDT) Anatomical Region Laterality Modality Abdomen Ultrasound 09/17/2024 2:03 PM EDT Narrative 09/17/2024 2:47 PM EDT ? [facility] ?[address] ? [place] [address] ? Ultrasound Report ? Signed ? Patient: Hobbs,Geovanna ?MR#: [id number] ?? 74 ? : 1975 ?Acct:[id number] ? Age/Sex: 49 / F ?ADM Date: 09/17/24 ? Loc: HO.HMGCX ? Attending Dr: Patsy Man MD ? Ordering Physician: Otilia Quiñones MD ?? Date of Service: 09/17/24 ?? Procedure(s): US abdomen limited ?? Accession Number(s): [id number] ? cc: Otilia Quiñones MD ? EXAMINATION: [...] ??Fredy Nino MD ??09/17/2024 02:44 PM EDT ? Dictated By: ?Fredy Nino MD ? Signed By: ?<Electronically signed by Fredy Nino MD in OV> ?09/17/24 1444 ? DD/ 1403 ? TD/TT: 09/17/24 1410 ? Customer Success Advocate: ? Procedure Note Addison, Image - 09/17/2024 [facility] [place] [address] Ultrasound Report Signed Patient: Geovanna HobbsMR#: [id number] 74 : 1975Acct:[id number] Age/Sex: 49 / FADM Date: 09/17/24 Loc: HO.HMGCX Attending Dr: Patsy Man MD Ordering Physician: Otilia Quiñones MD Date of Service: 09/17/24 Procedure(s): US abdomen limited Accession Number(s): [id number] cc: Otilia Quiñones MD EXAMINATION: US ABDOMEN [...] 09/17/24 1444 DD/ 1403 TD/TT: 09/17/24 1410 Customer Success Advocate: us Otilia Quiñones MD IMG US PROCEDURES Final Resul t * FL Upper GI w/air w/Barium Swallow (09/16/2024 9:50 AM EDT) Anatomical Region Laterality Modality Body Radiographic Renée ging 09/16/2024 9:50 AM EDT Narrative 09/16/2024 10:57 AM EDT ? [facility] ?[address] ?[place] [address] ? Fluoroscopy Report ? Signed ? Patient: Hobbs,Geovanna ?MR#: [id number] ?? 74 ? : 1975 ?Acct:[id number] ? Age/Sex: 49 / F ?ADM Date: 04/16/25 ? Loc: HO.XRAY ? Attending Dr: Otilia Quiñones MD ? Ordering Physician: Otilia Quiñones MD ?? Date of Service: 09/16/24 ?? Procedure(s): FL upper GI w air w Ba Swallow ?? Accession Number(s): [id number] ? cc: Otilia Quiñones MD ? EXAMINATION: [...] DD/ 0950 ? TD/TT: 09/16/24 1020 ? Customer Success Advocate: ? Procedure Note Addison, Robbie - 09/16/[address] [address] Fluoroscopy Report Signed Patient: Geovanna HobbsMR#: [id number] [birth year] : 1975Acct:[id number] Age/Sex: 49 / FADM Date: 09/16/24 Loc: DESIREE Attending Dr: Otilia Quiñones MD Ordering Physician: Otilia Quiñones MD Date of Service: 09/16/24 Procedure(s): FL upper GI w air w Ba Swallow Accession Number(s): [id number] cc: Otilia Quiñones MD EXAMINATION: XR FLUOROSCOPY [...] 09/16/24 1055 DD/ 0950 TD/TT: 09/16/24 1020 Customer Success Advocate: us Otilia Quiñones MD IMG FLUOROSCOPY PROCEDURES Fi nal Result * POCT Rapid Covid-19 BinaxNOW (08/14/2024 11:30 AM EDT) [facility] Rapid COVID Ag Negative QC Media Lot # [id number] Lot# Expiration Date [id number] Swab 08/14/2024 11:3 0 AM EDT Patsy Man MD POINT OF CARE TEST ENTER/EDIT OR DERABLES Final Result * (ABNORMAL) POCT Rapid Strep A OSOM (08/14/2024 11:29 AM EDT) [facility] Rapid Strep A Screen Positive( A) Negative, None Detected QC Media Lot # [id number] Lot# Expiration Date [id number] Swab 08/14/2024 11:2 9 AM EDT Patsy Man MD POINT OF CARE TEST ENTER/EDIT OR DERABLES Final Result * VASC Lower Extremity Arterial Duplex Bilateral With Karli (08/10/2024 10:52 AM EDT) 08/10/2024 10:5 2 AM EDT Narrative [facility] - 08/11/2024 8:55 AM EDT ? [facility] ?[address] ?[place] [address] ? Ultrasound Report ? Signed ? Patient: Geovanna Hobbs ?MR#: [id number] ?? 74 ? : 1975 ?Acct:[id number] ? Age/Sex: 49 / F ?ADM Date: 08/10/24 ? Loc: HO.US ? Attending Dr: Cory Herzog MD ? Ordering Physician: Cory Herzog MD ?? Date of Service: 08/10/24 ?? Procedure(s): US arterial duplex BI w/ KARLI ?? Accession Number(s): [id number] ? cc: Otilia Quiñones MD; Cory Herzog [...] ? Right: Abnormal. ?? Left: Abnormal. ? US/ arterial duplex BI w/ KARLI ?? IMPRESSION: [...] DD/ 1052 ? TD/TT: 08/10/24 1144 ? Customer Success Advocate: ? Procedure Note Addison, Image - 08/11/2024 [place] [address] Ultrasound Report Signed Patient: Geovanna HobbsMR#: [id number] 73 : 1975Acct:[id number] Age/Sex: 49 / FADM Date: 08/10/24 Loc: HO.US Attending Dr: Cory Herzog MD Ordering Physician: Cory Herzog MD Date of Service: 08/10/24 Procedure(s): US arterial duplex BI w/ KARLI Accession Number(s): [id number] cc: Otilia Quiñones MD; Cory Herzog MD [...] 08/11/24 0852 DD/ 1052 TD/TT: 08/10/24 1144 Customer Success Advocate: [facility] External Provider CV VASC ULAR PROCEDURES Final Result Performing Organization Address [facility]/ZIP Co de Phone Number [facility] [address] [place] [address] * Hepatitis C Antibody with Reflex to HCV, RNA, Quantitative, Real-Time PCR (06/26/2024 12:59 PM EST) Hepatitis C Antibody Nonreactive Nonreactive [facility] Comment:Antibodies to HCV no t detected; does not exclude early acuteHCV infection. Blood Venous blood specimen / Unknown 06/26/2024 12:59 PM EST 06/26/2024 2:34 PM EST Otilia Quiñones MD LAB BLOOD ORDERABLES Final Re sult Performing Organization Address City/[facility]/ZIP Co de Phone Number [facility] [address] [place] [phone] * HIV-1/2 Antigen and Antibodies, Fourth Generation, with Reflexes (06/26/2024 12:59 PM EST) [facility] HIV AB/AG Nonreactive Nonreactive [facility] Comment:HIV-1 p24 Ag and/or HIV-1/HIV-2 Ab not detected.A test result that is nonreactive does not exclude thepossibility of exposure to or infection with HIV-1 and/orHIV-2. Nonreactive results in this assay for individualswith prior exposure to HIV-1 and/or HIV-2 may be due toantigen and antibody levels that are below the limit ofdetection of this assay.The [employer] HIV Ag/Ab Combo assay result andsupplemental assay results should be interpreted inconjunction with the patient's clinical presentation,history and other laboratory results. If the results areinconsistent with clinical evidence, additional testing issuggested to confirm the result. Blood Venous blood specimen / Unknown 06/26/2024 12:59 PM EST 06/26/2024 2:34 PM EST us Otilia Quiñones MD LAB BLOOD ORDERABLES Final Re sult [facility] [address] [place] [address] [phone] * BI Mammogram Diagnostic Tomosynthesis Bilateral (06/17/2024 11:18 AM EST) Anatomical Region Laterality Modality Breast Bilateral Mammography 06/17/2024 11:1 8 AM EST Narrative 06/17/2024 1:06 PM EST ? [facility] ? [address] ?[place] [address] ? Mammography Report ? Signed ? Patient: Hobbs,Geovanna ?MR#: [id number] ?? 74 ? : 1975 ?Acct:[id number] ? Age/Sex: 48 / F ?ADM Date: 01/15/25 ? Loc: HO.MAMMO ? Attending Dr: Yunier Bentley MD ? Ordering Physician: Yunier Bentley MD ?Results: 2Beni ?? gn Findings ? Date of Service: 06/17/24 ?Follow Up: 1 Year From Orig ?? inal Mammogram ? Procedure(s): MM tomosynthesis diagnostic BI ?? Accession Number(s): [id number] ? cc: Otilia Quiñones MD; Yunier Bentley [...] DD/ 1118 ? TD/TT: 06/17/24 1146 ? Customer Success Advocate: ? Procedure Note Donotuseinterpreter, Image - 06/17/2024 [facility] [address] [place], [place] [address] Mammography Report Signed Patient: Geovanna HobbsMR#: [id number] 74 : 1975Acct:[id number] Age/Sex: 48 / FADM Date: 06/17/24 Loc: HO.MAMMO Attending Dr: Yunier Bentley MD Ordering Physician: Yunier Bentley MDResults: 2Beni gn Findings Date of Service: 06/17/24Follow Up: 1 Year From Orig inal Mammogram Procedure(s): MM tomosynthesis diagnostic BI Accession Number(s): [id number] cc: Otilia Quiñones MD; Yunier Bentley MD [...] 06/17/24 1303 DD/ 1118 TD/TT: 06/17/24 1146 Customer Success Advocate: [facility] External Provider IMG BI PROCEDURES Final [...] historic and ?? current clinical information. ?? Dog License Officer Supervisor : SEE COMMENT [facility] Comment: BK,CT(ASCP) CT screening location: [address] Interpretation/R esult: Negative for intraepithelial lesion or malignancy. [facility] LMP: 06/03/2020 [facility] Prev. BX: NONE GIVEN [facility] Prev. PAP: NONE [facility]IVEN [facility] Review Dog License Officer Supervisor : SEE COMMENT [facility] Comment: SL, CT(ASCP) CT screening location: [address] ??[address] SOURCE: None given [facility] Statement Of Adequacy: SEE COMMENT [facility] Comment: Satisfactory for evaluation. Endocervical/transformation zone component absent. 08/02/2020 9:01 AM EST Thania HORN LAB PATHOLOGY ORDERABLES Final Result Performing Organization Address [facility] de Phone Number [facility] [address] * HPV mRNA E6/E7 (08/02/2020 9:01 AM EST) HPV nRNA E6/E7 Not Detected Not Detected [facility] Comment: Methodology: Solar Designer-Mediated Amplification This assay detects E6/E7 viral messenger RNA (mRNA) from 14 high-risk HPV types (16,18,31,33,35,39,45,51,52,56,58,59,66,68). ? The analytical performance characteristics of this assay have been determined by [employer]. The modifications have not been cleared or approved by the FDA. This assay has been validated pursuant to the CLIA regulations and is used for clinical purposes. ?? For additional information, please refer to http://education.[employer]/faq/ORX214z0 (This link if provided for information/ educational purposes only.) 08/02/2020 9:01 AM EST Thania Alvarez [facility] LAB BLOOD ORDERABLES Kelly l Result Performing Organization Address [facility] de Phone Number [facility] [address] from Last 3 Months or Most Recently Relevant to Health Maintenance Insurance [facility] C[facility] * Guarantor: HobbsJenelle schumacherGeovanna Account Type Relation to Patient Date of Phone Billing Address Personal/Family Self [address] Care Teams Orthopedic Nurse Practitioner Relationship Specialty Start Date End Date Otilia Quiñones MD [address] [facility] [place] PCP - General Family Medicine 09/15/13
--- OUTSIDE RECORDS SUMMARY | 2024-10-07 11:15 | XMS_ITS | Encounter Summary ---
Author Organization [employer] Address [address] [place] [address] 7t [place] [address] Care Team Providers Care Inspector Fuel Hose Name Role Phone Otilia Quiñones MD Primary Care Provider [phone] Encounter Details Date Type Department Care Team (Latest Contact Info) Description 08/11/[address] [facility] CONVERSIONS Dental, Provider, DDS Social History Tobacco [...] Description 10/15/2024 11:00 AM EDT Office Visit [facility] MED & PEDS [address] [place] [address] Otilia Quiñones MD [address] [place] [address] documented as of this encounter Visit Diagnoses Not on filedocumented in this encounter Care Teams Inspector Fuel Hose Relationship Specialty Start Date End Date Otilia Quiñones MD [address] [place] [address] PCP - General Family Medicine 09/15/13 documented as of this encounter
--- OUTSIDE RECORDS SUMMARY | 2024-10-07 11:15 | XMS_ITS | Encounter Summary ---
Author Organization [employer] Address [address] [place] [address] 7t [place] [address] Care Team Providers Care Surveying Teacher Name Role Phone Otilia Quiñones MD Primary Care Provider [phone] Encounter Details Date Type Department Care Team (Latest Contact Info) Description 08/25/2021 Abstract [facility] CONVERSIONS Dental, Provider, DDS Social History Tobacco [...] Description 10/15/2024 11:00 AM EDT Office Visit [facility] MED & PEDS [address] [place] [address] Otilia Quiñones MD [address] [place] [address] documented as of this encounter Visit Diagnoses Not on filedocumented in this encounter Care Teams Surveying Teacher Relationship Specialty Start Date End Date Otilia Quiñones MD [address] [place] [address] PCP - General Family Medicine 09/15/13 documented as of this encounter
--- OUTSIDE RECORDS SUMMARY | 2024-10-07 11:15 | XMS_ITS | Encounter Summary ---
Author Organization [employer] Address [address] [facility] 7t [place] [address] Care Team Providers Care Automotive Sales Specialist Name Role Phone Otilia Quiñones MD Primary Care Provider [phone] Encounter Details Date Type Department Care Team (Late st Contact Info) Description 03/28/2023 Abstract [facility] MEDICINE [address] [place] [address] Otilia Quiñones MD [address] [place], [place] [phone] Social History Tobacco Use Types Packs/Day Years [...] Upcoming Encounters Date Type Department Care Team ([facility] st Contact Info) Description 10/15/2024 11:00 AM EDT Office Visit [facility] MED & PEDS [address] [place] [address] Otilia Quiñones MD [address] [place] [address] documented as of this encounter Visit Diagnoses Not on filedocumented in this encounter Care Teams Automotive Sales Specialist Relationship Specialty Start Date End Date Otilia Quiñones MD [address] [place] [address] PCP - General Family Medicine 09/15/13 documented as of this encounter
== END 2024-10-07 10:05 | disposition home or self-care (01) ==
LOC: HO.US 10:04
PROVIDERS: PCP Pediatrics; Visit Provider Surgery Vascular Surgery
DX: I83.12 Varicose veins of left lower extremity with inflammation (principal)
CPT/HCPCS: 93970

== ENCOUNTER → 2024-10-07 10:06 | Outpatient (BNV) | payer MEDICAID, SELFPAY | PROVIDERS: PCP Pediatrics; Visit Provider Radiology Diagnostic Radiology | DX: I83.813 Varicose veins of bilateral lower extremities with pain (principal) | CPT/HCPCS: 93970 ==

== ENCOUNTER 2024-10-15 13:31 | Outpatient (REF) | payer MEDICAID, SELFPAY ==
--- OUTSIDE RECORDS SUMMARY | 2024-10-15 14:07 | XMS_ITS | Encounter Summary ---
Author Organization [employer] Address [address] [facility] [address] [place] [address] Care Team Providers Care Senior Commissions Analyst Name Role Phone Otilia Quiñones MD Primary Care Provider [phone] Encounter Details Date Type Department Care Team (Late st Contact Info) Description 03/28/2023 Abstract [facility] [address] [place] [address] Otilia Quiñones MD [address] [place], [place] [id number] Social History Tobacco Use Types Packs/Day Years [...] Care Team (Late st Contact Info) Description 11/05/2024 11:00 AM EDT Office Visit [facility] ADULT DENTAL [address] [place] [address] Yoshi Sandoval, DMD [address] [place] [address] documented as of this encounter Visit Diagnoses Not on filedocumented in this encounter Care Teams Senior Commissions Analyst Relationship Specialty Start Date End Date Otilia Quiñones MD [address] [place] [address] PCP - General Family Medicine 09/15/13 documented as of this encounter
--- OUTSIDE RECORDS SUMMARY | 2024-10-15 14:07 | XMS_ITS | Encounter Summary ---
Author Organization [employer] Address [address] [place] [address] [address] [place] [address] Care Team Providers Care Director Of Procurement Name Role Phone Otilia Quiñones MD Primary Care Provider [phone] Encounter Details Date Type Department Care Team (Latest Contact Info) Description 08/25/2021 Abstract [facility] CONVERSIONS Dental, Provider, DDS Social [...] Description 11/05/2024 11:00 AM EDT Office Visit [facility] ADULT DENTAL [address] [place] [address] Yoshi Sandoval, DMD [address] [place] [address] documented as of this encounter Visit Diagnoses Not on filedocumented in this encounter Care Teams Director Of Procurement Relationship Specialty Start Date End Date Otilia Quiñones MD [address] [place] [address] PCP - General Family Medicine 09/15/13 documented as of this encounter
--- OUTSIDE RECORDS SUMMARY | 2024-10-15 14:07 | XMS_ITS | Encounter Summary ---
Author Organization [employer] Address [address] [place] [address] Care Team Providers Care Chairman Name Role Phone Otilia Quiñones MD Primary Care Provider [phone] Encounter Details Date Type Department Care Team (Latest Contact Info) Description 10/15/2024 Travel Social History Tobacco Use Types Packs/Day Years [...] Description 11/05/2024 11:00 AM EDT Office Visit [facility] [address] [place] [address] Yoshi Sandoval, DMD [address] [place] [address] documented as of this encounter Visit Diagnoses Not on filedocumented in this encounter Additional Health Concerns Assessment Noted Time PHQ-9 Depression Total Score: 0 07/03/19 24 10:45 AM EST documented as of this encounter Care Teams Chairman Relationship Specialty Start Date End Date Otilia Quiñones MD [address] [place] [address] PCP - General Family Medicine 09/15/13 documented as of this encounter
--- OUTSIDE RECORDS SUMMARY | 2024-10-15 14:07 | XMS_ITS | Clinical Summary ---
Author Organization [employer] Address [address] [place] [address] Care Team Providers Care Associate Professor Of Anthropology Name Role Phone Otilia Quiñones MD Primary Care Provider [phone] Allergies No known active allergies Medications hydrOXYzine [...] Encounters Date Type Department Care Team Description 10/15/2024 11:00 AM EDT Office Visit [facility] [address] [place] [address] Otilia Quiñones MD Dermatitis (Primary Dx); Generalized abdominal pain 10/15/2024 Travel 09/23/2024 Telephone [facility] [address] [place] [address] Otilia Quiñones MD 09/23/2024 Telephone [facility] [address] [place] [address] Otilia Quiñones MD 09/23/2024 Orders Only [facility] [address] [place] [address] Otilia Quiñones MD Hiatal hernia (Primary Dx); Schatzki's ring; Dysphagia, unspecified type 09/03/2024 Orders Only [facility] [address] [place] [address] Otilia Quiñones MD Transaminitis (Primary Dx) 08/14/2024 11:15 AM EDT Office Visit [facility] [address] [place] [address] Patsy Man MD Strep pharyngitis (Primary Dx); Pain with swallowing 08/14/2024 Travel 08/14/2024 Population Health Risk Score [facility] () Department [address] [place] [address] [phone] Provider, Population Health Generic 08/13/2024 Telephone [facility] [address] [place] [address] Otilia Quiñones MD 08/10/2024 Orders Only [facility] External Provider, [facility] 07/30/2024 11:00 AM EST Office Visit [facility] [address] [place] [address] Dolores Jasmine from Last 3 Months Immunizations Immunization Administration Dates Next Due Td (adult), 5 [...] Sign Reading Time Taken Comments Blood Pressure 124/83 10/15/2024 10:57 AM EDT Pulse 70 10/15/2024 10:57 AM EDT Temperature 36.9 ??C (98.4 ??F) 10/15/2024 10:57 AM E DT Respiratory Rate 20 10/15/2024 10:57 AM EDT Oxygen Saturation 98% 10/15/2024 10:57 AM EDT Inhaled Oxygen Concentration - - Weight 73 kg (161 lb) 10/15/2024 10:57 AM EDT Height 162.6 cm (5' 4 ) 10/15/2024 10:57 AM EDT Body Mass Index 27.64 10/15/2024 10:57 AM EDT Plan of Treatment Upcoming Encounters Date Type Department Care Team (Late st Contact Info) Description 11/05/2024 11:00 AM EDT Office Visit [facility] [address] [place] [address] Yoshi Sandoval, JUDI [address] [place] [address] Health Maintenance Due Date Last Done Comments [...] 06/28/2021, Additional history exists COVID-19 Vaccine ( season) 2024 Influenza Vaccine (#1) 2024 Depression Screening 07/03/2024 07/03/2023, 07/03/19 24 Mammogram 06/17/2025 06/17/2024, 02/01, 02/12/2023, Additional history exists Cervical Cancer Screening 08/02/2025 HPV/Cotest 08/02/2025 08/02/2020 Tobacco Screening 10/15/2025 10/15/2024 Zoster Vaccines (1 of 2) 2026 DTaP/Tdap/Td [...] patient's age to complete this topic Meningococcal B Vaccine Aged Out No l onger eligible based on patient's age to complete [...] Procedure Name Priority Date/Time Associated Diagnosis Comments [facility] LOWER EXTREMITY VENOUS DUPLEX BILATERAL Routine 10/07/2024 10:23 AM EDT US HEAD NECK SOFT TISSUE Routine 09/17/2024 2:13 PM EDT Pain with swallowing US ABDOMEN LIMITED Routine 09/17/2024 2: 03 PM EDT Transaminitis FL UPPER GI W AIR W BARIUM SWALLOW Routine 09/16/2024 9:50 AM EDT POCT RAPID COVID ANTIGEN Routine 08/14/2024 11:30 AM EDT Strep pharyngitis POCT RAPID STREP A Routine 08/14/2024 11 :29 AM EDT Strep pharyngitis [facility] LOWER EXTREMITY ARTERIAL DUPLEX BILATERAL WITH KARLI [...] PER QUADRANT Routine 07/30/2024 11:00 AM EST HEPATITIS C AB W/REFL [...] Recently Relevant to Health Maintenance Results * VASC Lower Extremity Venous Duplex Bilateral (10/07/2024 10:23 AM EDT) 10/07/2024 10:2 3 AM EDT Narrative [facility] - 10/07/2024 11:33 AM EDT ? [facility] ?[address] ?[place] [address] ? Ultrasound Report ? Signed ? Patient: Hobbs,Geovanna ?MR#: [id number] ?? 74 ? : 1975 ?Acct:[id number] ? Age/Sex: 49 / F ?ADM Date: 05/07/25 ? Loc: HO.US ? Attending Dr: Cory Herzog MD ? Ordering Physician: Cory Herzog MD ?? Date of Service: 10/07/24 ?? Procedure(s): US venous duplex LE BI ?? Accession Number(s): [id number] ? cc: Otilia Quiñones MD; Cory Herzog MD ? EXAMINATION: ?? US LOWER EXTREMITY VENOUS (REFLUX EXAM), BILATERAL ? CLINICAL INFORMATION: ?? Varices. ? COMPARISON: ?? None. ? TECHNIQUE: ?? Color flow triplex imaging and compression Doppler was performed to ?? evaluate both the deep and the superficial systems bilaterally. To ?? evaluate the superficial system, the examination was performed in the ?? upright position. Color-flow Doppler ultrasound and compression ?? ultrasound were utilized. In addition, maneuvers were utilized to ?? demonstrate reflux. ? FINDINGS: ? 1. DEEP VENOUS ULTRASOUND OF THE RIGHT LOWER EXTREMITY: ?? Common Femoral Vein: Compressible, normal respiratory variation and ?? augmented flow. ? Femoral Vein: Compressible, normal color flow and augmentation. ?? Popliteal Vein: Compressible, normal augmentation. ? Deep Reflux: There is no evidence of reflux in the deep system in ?? either the common femoral vein, superficial femoral or the popliteal ?? vein. ? There is no evidence of a Ray's cyst. ? 2. SUPERFICIAL ULTRASOUND WITH DOPPLER OF RIGHT LOWER EXTREMITY: ? GREAT SAPHENOUS VEIN: ?? Saphenofemoral Junction: 0.9 cm; Reflux: 0 ms ?? Proximal Thigh: 0.4 cm; Reflux: 0 ms ?? Mid Thigh: 0.3 cm; Reflux: 0 ms ?? Distal Thigh: 0.3 cm; Reflux: 0 ms ?? At Knee: 0.6 cm; Reflux: 0 ms ?? Proximal Calf: 0.3 cm; Reflux: 2648 ms ?? Mid Calf: 0.1 cm; Reflux: 0 ms ?? Distal Calf: 0.1 cm; Reflux: 0 ms ? DUPLICATED MEDIAL GREAT SAPHENOUS VEIN: ?? Diameter: None imaged ?? Reflux: NA ? DUPLICATED LATERAL GREAT SAPHENOUS VEIN: ?? Diameter: 0.3 cm. ?? Reflux: NA ? SMALL SAPHENOUS VEIN: ?? Saphenopopliteal Junction: 0.1 cm; Reflux: 0 ms ?? Proximal: 0.3 cm; Reflux: 0 ms ?? Distal: 0.2 cm; Reflux: 0 ms ? VEIN OF GIACOMINI: ?? Size: NA ?? Reflux: NA ? PERFORATORS: ?? Location: Small saphenous vein mid segment and proximal calf and heel. ?? Size: 0.2-0.3 cm. ?? Reflux: 1436 ms at the heel. ? VARICOSITIES: ?? Location: Small saphenous vein, mid segment, mid thigh and proximal ?? calf. ?? Size: 0.3 cm. ?? Reflux: 2724 ms at the proximal calf. ? 3. DEEP VENOUS ULTRASOUND OF THE LEFT LOWER EXTREMITY: ?? Common Femoral Vein: Compressible, normal respiratory variation and ?? augmented flow. ? Femoral Vein: Compressible, normal color flow and augmentation. ?? Popliteal Vein: Compressible, normal augmentation. ? Deep Reflux: There is no evidence of reflux in the deep system in ?? either the common femoral vein, superficial femoral or the popliteal ?? vein. ? There is no evidence of a Ray's cyst. ? 4. SUPERFICIAL ULTRASOUND WITH DOPPLER OF LEFT LOWER EXTREMITY: ? GREAT SAPHENOUS VEIN: ?? Saphenofemoral Junction: 0.8 cm; Reflux: 0 ms ?? Proximal Thigh: 0.2 cm; Reflux: 0 ms ?? Mid Thigh: 0.2 cm; Reflux: 0 ms ?? Distal Thigh: 0.2 cm; Reflux: 0 ms ?? At Knee: 0.3 cm; Reflux: 0 ms ?? Proximal Calf: 0.3 cm; Reflux: 2932 ms ?? Mid Calf: 0.2 cm; Reflux: 0 ms ?? Distal Calf: 0.2 cm; Reflux: 0 ms ? DUPLICATED MEDIAL GREAT SAPHENOUS VEIN: ?? Diameter: None imaged ?? Reflux: NA ? DUPLICATED LATERAL GREAT SAPHENOUS VEIN: ?? Diameter: 0.4 cm. ?? Reflux: NA ? SMALL SAPHENOUS VEIN: ?? Saphenopopliteal Junction: 0.1 cm; Reflux: 0 ms ?? Proximal: 0.2 cm; Reflux: 0 ms ?? Distal: 0.1 cm; Reflux: 0 ms ? VEIN OF GIACOMINI: ?? Size: 0.2 cm. ?? Reflux: NA ? PERFORATORS: ?? Location: Small saphenous vein proximal to mid segment and proximal to ?? mid calf. ?? Size: 0.2-0.3 cm. ?? Reflux: NA ? VARICOSITIES: ?? Location: Proximal to distal calf. ?? Size: 0.3 cm. ?? Reflux: 3132 ms in the proximal calf. ? US/ venous duplex LE BI ?? IMPRESSION: ?? Right: Venous insufficiency, great saphenous vein below the knee. ?? Perforators in the heel with reflux. ?? 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 ? Left: Venous insufficiency, great saphenous vein below the knee. ?? 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 ? Electronically signed by: ??Braeden Orosco MD ??10/07/2024 11:30 AM ?? EDT RP ? Dictated By: ?Braeden Paul MD ? Signed By: ?<Electronically signed by Braeden Cordoba MD in OV> ? 10/07/24 1130 ? DD/ 1023 ? TD/TT: 10/07/24 1054 ? Rn Invasive: ? Procedure Note Robbie Jaime - 10/07/2024 [place] [address] Ultrasound Report Signed Patient: Geovanna HobbsMR#: [id number] 73 : 1975Acct:[id number] Age/Sex: 49 / FADM Date: 10/07/24 Loc: HO.US Attending Dr: oCry Herzog MD Ordering Physician: Cory Herzog MD Date of Service: 10/07/24 Procedure(s): US venous duplex LE BI Accession Number(s): [id number] cc: Otilia Quiñones MD; Cory Herzog MD EXAMINATION: US LOWER EXTREMITY VENOUS (REFLUX EXAM), BILATERAL CLINICAL INFORMATION: Varices. COMPARISON: None. TECHNIQUE: Color flow triplex imaging and compression Doppler was performed to evaluate both the deep and the superficial systems bilaterally. To evaluate the superficial system, the examination was performed in the upright position. Color-flow Doppler ultrasound and compression ultrasound were utilized. In addition, maneuvers were utilized to demonstrate reflux. FINDINGS: 1. DEEP VENOUS ULTRASOUND OF THE RIGHT LOWER EXTREMITY: Common Femoral Vein: Compressible, normal respiratory variation and augmented flow. Femoral Vein: Compressible, normal color flow and augmentation. Popliteal Vein: Compressible, normal augmentation. Deep Reflux: There is no evidence of reflux in the deep system in either the common femoral vein, superficial femoral or the popliteal vein. There is no evidence of a Ray's cyst. 2. SUPERFICIAL ULTRASOUND WITH DOPPLER OF RIGHT LOWER EXTREMITY: GREAT SAPHENOUS VEIN: Saphenofemoral Junction: 0.9 cm; Reflux: 0 ms Proximal Thigh: 0.4 cm; Reflux: 0 ms Mid Thigh: 0.3 cm; Reflux: 0 ms Distal Thigh: 0.3 cm; Reflux: 0 ms At Knee: 0.6 cm; Reflux: 0 ms Proximal Calf: 0.3 cm; Reflux: 2648 ms Mid Calf: 0.1 cm; Reflux: 0 ms Distal Calf: 0.1 cm; Reflux: 0 ms DUPLICATED MEDIAL GREAT SAPHENOUS VEIN: Diameter: None imaged Reflux: NA DUPLICATED LATERAL GREAT SAPHENOUS VEIN: Diameter: 0.3 cm. Reflux: NA SMALL SAPHENOUS VEIN: Saphenopopliteal Junction: 0.1 cm; Reflux: 0 ms Proximal: 0.3 cm; Reflux: 0 ms Distal: 0.2 cm; Reflux: 0 ms VEIN OF GIACOMINI: Size: NA Reflux: NA PERFORATORS: Location: Small saphenous vein mid segment and proximal calf and heel. Size: 0.2-0.3 cm. Reflux: 1436 ms at the heel. VARICOSITIES: Location: Small saphenous vein, mid segment, mid thigh and proximal calf. Size: 0.3 cm. Reflux: 2724 ms at the proximal calf. 3. DEEP VENOUS ULTRASOUND OF THE LEFT LOWER EXTREMITY: Common Femoral Vein: Compressible, normal respiratory variation and augmented flow. Femoral Vein: Compressible, normal color flow and augmentation. Popliteal Vein: Compressible, normal augmentation. Deep Reflux: There is no evidence of reflux in the deep system in either the common femoral vein, superficial femoral or the popliteal vein. There is no evidence of a Ray's cyst. 4. SUPERFICIAL ULTRASOUND WITH DOPPLER OF LEFT LOWER EXTREMITY: GREAT SAPHENOUS VEIN: Saphenofemoral Junction: 0.8 cm; Reflux: 0 ms Proximal Thigh: 0.2 cm; Reflux: 0 ms Mid Thigh: 0.2 cm; Reflux: 0 ms Distal Thigh: 0.2 cm; Reflux: 0 ms At Knee: 0.3 cm; Reflux: 0 ms Proximal Calf: 0.3 cm; Reflux: 2932 ms Mid Calf: 0.2 cm; Reflux: 0 ms Distal Calf: 0.2 cm; Reflux: 0 ms DUPLICATED MEDIAL GREAT SAPHENOUS VEIN: Diameter: None imaged Reflux: NA DUPLICATED LATERAL GREAT SAPHENOUS VEIN: Diameter: 0.4 cm. Reflux: NA SMALL SAPHENOUS VEIN: Saphenopopliteal Junction: 0.1 cm; Reflux: 0 ms Proximal: 0.2 cm; Reflux: 0 ms Distal: 0.1 cm; Reflux: 0 ms VEIN OF GIACOMINI: Size: 0.2 cm. Reflux: NA PERFORATORS: Location: Small saphenous vein proximal to mid segment and proximal to mid calf. Size: 0.2-0.3 cm. Reflux: NA VARICOSITIES: Location: Proximal to distal calf. Size: 0.3 cm. Reflux: 3132 ms in the proximal calf. US/US venous duplex LE BI IMPRESSION: Right: Venous insufficiency, great saphenous vein below the knee. Perforators in the heel with reflux. 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 Left: Venous insufficiency, great saphenous vein below the knee. 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 Electronically signed by: Braeden Orosco MD 10/07/2024 11:30 AM EDT Dictated By: Braeden Paul MD Signed By: <Electronically signed by Braeden Cordoba MDin OV> 10/07/24 1130 DD/ 1023 TD/TT: 10/07/24 1054 Rn Invasive: us [facility] External Provider CV VASC ULAR PROCEDURES Final Result [facility] [address] [place] [id number] * US Head Neck Soft Tissue (09/17/2024 2:13 PM EDT) Anatomical Region Laterality Modality Head, Neck Ultrasound 09/17/2024 2:13 PM EDT Narrative 09/18/2024 8:32 AM EDT ? [facility] ?[address] ? [place] [address] ? Ultrasound Report ? Signed ? Patient: Hobbs,Geovanna ?MR#: [id number] ?? 74 ? : 1975 ?Acct:[id number] ? Age/Sex: 49 / F ?ADM Date: 09/17/24 ? Loc: HO.HMGCX ? Attending Dr: Patsy Man MD ? Ordering Physician: Patsy Man MD ?? Date of Service: 09/17/24 ?? Procedure(s): US soft tiss head and/or neck ?? Accession Number(s): [id number] ? cc: Otilia Quiñones MD; Patsy Man [...] ??Fredy Nino MD ??09/18/2024 08:29 AM EDT ?? RP ? Dictated By: ?Fredy Nino MD ? Signed By: ?<Electronically signed by Fredy Nino MD in OV> ?09/18/24 0829 ? DD/ 1413 ? TD/TT: 09/17/24 1425 ? Rn Invasive: ? Procedure Note Robbie Jaime - 09/18/2024 [facility] [address] [place], [place] [address] Ultrasound Report Signed Patient: Geovanna Hobbs#: [id number] 73 : 1975Acct:[id number] Age/Sex: 49 / FADM Date: 09/17/24 Loc: [facility]: Patsy Man MD Ordering Physician: Patsy Man MD Date of Service: 09/17/24 Procedure(s): US soft tiss head and/or neck Accession Number(s): [id number] cc: Otilia Quiñones MD; Patsy Man MD [...] 09/18/24 0829 DD/ 1413 TD/TT: 09/17/24 1425 Rn Invasive: us Patsy Man MD IMG US PROCEDURES Edited Result - Final * US Abdomen Limited (09/17/2024 2:03 PM EDT) Anatomical Region Laterality Modality Abdomen Ultrasound 09/17/2024 2:03 PM EDT Narrative 09/17/2024 2:47 PM EDT ? [facility] ?[address] ? [place] [address] ? Ultrasound Report ? Signed ? Patient: Hobbs,Geovanna ?MR#: [id number] ?? 73 ? : 1975 ?Acct:[id number] ? Age/Sex: 49 / F ?ADM Date: 04/17/25 ? Loc: HO.HMGCX ? Attending Dr: Patsy S Donovan MD ? Ordering Physician: Otilia Quiñones MD ?? Date of Service: 09/17/24 ?? Procedure(s): US abdomen limited ?? Accession Number(s): [id number] ? cc: Otilia Quiñones MD ? EXAMINATION: [...] EDT ?? RP ? Dictated By: ?Fredy Nnio MD ? Signed By: ?<Electronically signed by Fredy Nino MD in OV> ?09/17/24 1444 ? DD/ 1403 ? TD/TT: 09/17/24 1410 ? Rn Invasive: ? Procedure Note Robbie Jaime - 09/17/2024 [facility] [address] [place] [address] Ultrasound Report Signed Patient: Cruz HobbsMo#: [id number] 73 : 1975Acct:[id number] Age/Sex: 49 / FADM Date: 09/17/24 Loc: HO.HMGCX Attending Dr: Patsy Man MD Ordering Physician: Otilia Quiñones MD Date of Service: 09/17/24 Procedure(s): US abdomen limited Accession Number(s): [id number] cc: Otilia Quiñones MD EXAMINATION: US ABDOMEN [...] Fredy Nino MD 09/17/2024 02:44 PM EDT Dictated By: Fredy Nino MD Signed By: <Electronically signed by Fredy Nino MD in OV> 09/17/24 1444 DD/ 1403 TD/TT: 09/17/24 1410 Rn Invasive: us Otilia Quiñones MD IMG US PROCEDURES Final Resul t * FL Upper GI w/air w/Barium Swallow (09/16/2024 9:50 AM EDT) Anatomical Region Laterality Modality Body Radiographic Renée ging 09/16/2024 9:50 AM EDT Narrative 09/16/2024 10:57 AM EDT ? [facility] ?[address] ?[place] [address] ? Fluoroscopy Report ? Signed ? Patient: Hobbs,Geovanna ?MR#: [id number] ?? 74 ? : 1975 ?Acct:[id number] ? Age/Sex: 49 / F ?ADM Date: 09/16/24 ? Loc: HO.XRAY ? Attending Dr: Otilia Quiñones MD ? Ordering Physician: Otilia Quiñones MD ?? Date of Service: 09/16/24 ?? Procedure(s): FL upper GI w air w Ba Swallow ?? Accession Number(s): [id number] ? cc: Otilia Quiñones MD ? EXAMINATION: [...] DD/ 0950 ? TD/TT: 09/16/24 1020 ? Rn Invasive: ? Procedure Note Addison, Image - 09/16/[address] [address] Fluoroscopy Report Signed Patient: Peyton Hobbs#: [id number] 73 : 1975Acct:[id number] Age/Sex: 49 / FADM Date: 09/16/24 Loc: DESIREE Attending Dr: Otilia Quiñones MD Ordering Physician: Otilia Quiñones MD Date of Service: 09/16/24 Procedure(s): FL upper GI w air w Ba Swallow Accession Number(s): [id number] cc: Otilia Quiñones MD EXAMINATION: XR FLUOROSCOPY [...] Stan Boo MD 09/16/2024 10:55 AM EDT RP Dictated By: Stan Boo MD Signed By: <Electronically signed by Stan Boo MD in OV> 09/16/24 1055 DD/ 0950 TD/TT: 09/16/24 1020 Rn Invasive: Otilia Quiñones MD IMG FLUOROSCOPY PROCEDURES Fi nal Result * POCT Rapid Covid-19 BinaxNOW (08/14/2024 11:30 AM EDT) [facility] Rapid COVID Ag Negative QC Media Lot # [id number] Lot# Expiration Date [id number] Swab 08/14/2024 11:3 0 AM EDT Result [facility] Patsy Man MD POINT OF CARE TEST ENTER/EDIT OR DERABLES Final Result * (ABNORMAL) POCT Rapid Strep A OSOM (08/14/2024 11:29 AM EDT) [facility] Rapid Strep A Screen Positive( A) Negative, None Detected QC Media Lot # [id number] Lot# Expiration Date [id number] Swab 08/14/2024 11:2 9 AM EDT Result [facility] Patsy Man MD POINT OF CARE TEST ENTER/EDIT OR DERABLES Final Result * [facility] Lower Extremity Arterial Duplex Bilateral With Karli (08/10/2024 10:52 AM EDT) 08/10/2024 10:5 2 AM EDT Narrative [facility] - 08/11/2024 8:55 AM EDT ? [facility] ?[address] ?[place] [address] ? Ultrasound Report ? Signed ? Patient: Hobbs,Geovanna ?MR#: [id number] ?? 73 ? : 1975 ?Acct:[id number] ? Age/Sex: 49 / F ?ADM Date: 03/10/25 ? Loc: HO.US ? Attending Dr: Cory Herzog MD ? Ordering Physician: Cory Herzog MD ?? Date of Service: 08/10/24 ?? Procedure(s): US arterial duplex BI w/ KARLI ?? Accession Number(s): [id number] ? cc: Otilia Quiñones MD; Cory Herzog [...] DD/ 1052 ? TD/TT: 08/10/24 1144 ? Rn Invasive: ? Procedure Note Robbie Jaime - 08/11/[address] [place] [address] Ultrasound Report Signed Patient: Geovanna Hobbs#: [id number] 73 : 1975Acct:[id number] Age/Sex: 49 / FADM Date: 08/10/24 Loc: . Attending Dr: Cory Herzog MD Ordering Physician: Cory Herzog MD Date of Service: 08/10/24 Procedure(s): US arterial duplex BI w/ KARLI Accession Number(s): [id number] cc: Otilia Quiñones MD; Cory Herzog MD [...] 08/11/24 0852 DD/ 1052 TD/TT: 08/10/24 1144 Rn Invasive: [facility] External Provider CV VASC ULAR PROCEDURES Final Result [facility] [address] [place] [address] * Hepatitis C Antibody with Reflex to HCV, RNA, Quantitative, Real-Time PCR (06/26/2024 12:59 PM EST) Hepatitis C Antibody Nonreactive Nonreactive [facility] Comment:Antibodies to HCV no t detected; does not exclude early acuteHCV infection. Blood Venous blood specimen / Unknown 06/26/2024 12:59 PM EST 06/26/2024 2:34 PM EST Otilia Quiñones MD LAB BLOOD ORDERABLES Final Re sult Performing Organization Address [facility] [[email or web address]] Co de Phone Number [facility] [address] [place] [address] [phone] * HIV-1/2 Antigen and Antibodies, Fourth Generation, with Reflexes (06/26/2024 12:59 PM EST) [facility] HIV AB/AG Nonreactive Nonreactive [facility] Comment:HIV-1 p24 Ag and/or HIV-1/HIV-2 Ab not detected.A test result that is nonreactive does not exclude thepossibility of exposure to or infection with HIV-1 and/orHIV-2. Nonreactive results in this assay for individualswith prior exposure to HIV-1 and/or HIV-2 may be due toantigen and antibody levels that are below the limit ofdetection of this assay.[employer] HIV Ag/Ab Combo assay result andsupplemental assay results should be interpreted inconjunction with the patient's clinical presentation,history and other laboratory results. If the results areinconsistent with clinical evidence, additional testing issuggested to confirm the result. Blood Venous blood specimen / Unknown 06/26/2024 12:59 PM EST 06/26/2024 2:34 PM EST Otilia Quiñones MD LAB BLOOD ORDERABLES Final Re sult Performing Organization Address City/[facility]/ZIP Co de Phone Number [facility] [address] [place] [address] [phone] * BI Mammogram Diagnostic Tomosynthesis Bilateral (06/17/2024 11:18 AM EST) Anatomical Region Laterality Modality Breast Bilateral Mammography 06/17/2024 11:1 8 AM EST Narrative 06/17/2024 1:06 PM EST ? [place] [facility] ? [address] ?[place] [address] ? Mammography Report ? Signed ? Patient: Hobbs,Geovanna ?MR#: [id number] ?? 73 ? : 1975 ?Acct:[id number] ? Age/Sex: 48 / F ?ADM Date: 06/17/24 ? Loc: HO.MAMMO ? Attending Dr: Yunier Bentley MD ? Ordering Physician: Yunier Bentley MD ?Results: 2Beni ?? gn Findings ? Date of Service: 06/17/24 ?Follow Up: 1 Year From Orig ?? inal Mammogram ? Procedure(s): MM tomosynthesis diagnostic BI ?? Accession Number(s): [id number] ? cc: Otilia Quiñones MD; Yunier Bentley [...] DD/ 1118 ? TD/TT: 06/17/24 1146 ? Rn Invasive: ? Procedure Note Addison, Robbie - 06/17/2024 [facility] [address] [place] [address] Mammography Report Signed Patient: Geovanna Hobbs#: [id number] 73 : 1975Acct:[id number] Age/Sex: 48 / FADM Date: 06/17/24 Loc: SUBHASH Attending Dr: Yunier Bentley MD Ordering Physician: Yunier Bentleyesults: 2Beni gn Findings Date of Service: 06/17/24Follow Up: 1 Year From Orig inal Mammogram Procedure(s): MM tomosynthesis diagnostic BI Accession Number(s): [id number] cc: Otilia Quiñones MD; Yunier Bentley MD [...] Criselda Jimenez DO 06/17/2024 01:03 PM EST Dictated By: Criselda Jimenez DO Signed By: <Electronically signed by Criselda Jimenez DO in OV> 06/17/24 1303 DD/ 1118 TD/TT: 06/17/24 1146 Rn Invasive: [facility] External Provider IMG BI PROCEDURES Final [...] historic and ?? current clinical information. ?? Striker Off : SEE COMMENT [facility] Comment: BK,CT(ASCP) CT screening location: [address] Interpretation/R esult: Negative for intraepithelial lesion or malignancy. [facility] LMP: 06/03/2020 [facility] Prev. BX: NONE GIVEN [facility] Prev. PAP: NONE GIVEN [facility] Review Striker Off : SEE COMMENT [facility] Comment: SL, CT(ASCP) CT screening location: [address] ??[id number] SOURCE: None given [facility] Statement Of Adequacy: SEE COMMENT [facility] Comment: Satisfactory for evaluation. Endocervical/transformation zone component absent. 08/02/2020 9:01 AM EST Thania HORN LAB PATHOLOGY ORDERABLES Final Result Performing Organization Address [facility] de Phone Number [facility] [address] * HPV mRNA E6/E7 (08/02/2020 9:01 AM EST) HPV nRNA E6/E7 Not Detected Not Detected [facility] Comment: Methodology: [employer]-Mediated Amplification This assay detects E6/E7 viral messenger RNA (mRNA) from 14 high-risk HPV types (16,18,31,33,35,39,45,51,52,56,58,59,66,68). ? The analytical performance characteristics of this assay have been determined by [email or web address]. The modifications have not been cleared or approved by the FDA. This assay has been validated pursuant to the CLIA regulations and is used for clinical purposes. ?? For additional information, please refer to http://education.wesync.tv.Ali/faq/[email or web address] (This link if provided for information/ educational purposes only.) 08/02/2020 9:01 AM EST Thania [facility]ORN LAB BLOOD ORDERABLES Kelly l Result Performing Organization Address [facility] [[email or web address]] Co de Phone Number [facility] [address] [place] [address], from Last 3 Months or Most Recently Relevant to Health Maintenance Insurance [facility] C3 DENTAL-[facility] MEDICAID STAND ADULT Care Teams Associate Professor Of Anthropology Relationship Specialty Start Date End Date Otilia Quiñones MD [address] [place] [phone] PCP - General Family Medicine 09/15/13
--- OUTSIDE RECORDS SUMMARY | 2024-10-15 14:07 | XMS_ITS | Encounter Summary ---
Author Organization [employer] Address [address] [place] [address] 7 [place] [address] Care Team Providers Care Personal Insurance Advisor Name Role Phone Otilia Quiñones MD Primary Care Provider Reason for Referral * Imaging (Urgent) - Authorized Specialty Diagnoses / Procedures Referred By Marilynn t Referred To Contact Radiology Diagnoses Generalized abdominal pain Procedures CT Abdomen Pelvis w/ Contrast Otilia Quiñones MD [address] [place] [address] Phone: tel: fax: [address] Phone: tel: fax: Referral ID Status Reason Start Date Expiration Date V isits Requested Visits Authorized [id number] Authorized 10/15/2024 10/15/2025 1 1 * Consultation (Urgent) - Pending Review Specialty Diagnoses / Procedures Referred By Contac t Referred To Contact Dermatology Diagnoses Dermatitis Otilia Quiñones MD [address] [place] [address] Phone: tel: fax: Referral ID Status Reason Start Date Expiration Date Visits Requested Visits Authorized [id number] Pending Review Specialty Services Required 10/15/2024 10/15/2025 1 1 Encounter Details Date Type Department Care Team (Late st Contact Info) Description 10/15/2024 11:00 AM EDT Office Visit [facility] MED & PEDS [address] [place] [address] Otilia Quiñones MD [address] [place] [address] Dermatitis (Primary Dx); Generalized abdominal pain Social History Tobacco Use Types Packs/Day Years [...] is your housing situation today? I have lateshaloy wolf 03/20/[address] you [...] the past 12 months, has t he Rentalutions, gas, oil or water company threatened to [...] Mass Index 27.64 10/15/2024 10:57 AM EDT documented in this encounter Plan of Treatment Upcoming Encounters Date Type Department Care Team (Late st Contact Info) Description 11/05/2024 11:00 AM EDT Office Visit [facility] [address] [place] [address] Yoshi Sandoval, DMD [address] [place] [address] Scheduled Orders Name Type Priority Associated Diagnoses Orde r Schedule CT Abdomen Pelvis w/ Contrast Imaging Urgent Generalized abdominal pain Expected: 10/15/2024, Expires: 10/15/2025 CBC auto differential Lab Routine Dermatitis Generalized abdominal pain Expected: 10/15/2024 (Approximate), Expires: 10/15/2025 Comprehensive Metabolic Panel Lab Routine Dermatitis Generalized abdominal pain Expected: 10/15/2024 (Approximate), Expires: 10/15/2025 Chlamydia/N. Gonorrhoeae RNA, TMA, Urogenitial Microbiology Routine Dermatitis Generalized abdominal pain Ordered: 10/15/2024 Hepatitis C Antibody with Reflex to HCV, RNA, Quantitative, Real-Time PCR Lab Routine Dermatitis Generalized abdominal pain Expected: 10/15/2024, Expires: 10/15/2025 HIV-1/2 Antigen and Antibodies, Fourth Generation, with Reflexes Lab Routine Dermatitis Generalized abdominal pain Expected: 10/15/2024 (Approximate), Expires: 10/15/2025 Helicobacter pylori??Antigen, EIA, Stool Lab Routine Dermatitis Generalized abdominal pain Expected: 10/15/2024, Expires: 10/15/2025 Lipase Lab Routine Generalized abdominal pain Expected: 10/15/2024, Expires: 10/15/2025 Scheduled Referrals Name Type Priority Associated Diagnoses Order Schedule Referral to Dermatology Outpatient Referral Urgent Dermatitis Expected: 10/15/2024 (Approximate), Expires: 10/15/2025 documented as of this encounter Visit Diagnoses Diagnosis Dermatitis- Primary Contact dermatitis and other eczema, due to unspecified cause Generalized abdominal pain Abdominal pain, generalized documented in this encounter Additional Health Concerns Assessment Noted Time PHQ-9 Depression Total Score: 0 07/03/19 24 10:45 AM EST documented as of this encounter Care Teams Personal Insurance Advisor Relationship Specialty Start Date End Date Otilia Quiñones MD [address] [place] [phone] PCP - General Family Medicine 09/15/13 documented as of this encounter
--- OUTSIDE RECORDS SUMMARY | 2024-10-15 14:07 | XMS_ITS | Encounter Summary ---
Author Organization [employer] Address [address] [place] [address] [address]t [place] [address] Care Team Providers Care Coupon And Bond Collection Clerk Name Role Phone Otilia Quiñones MD Primary Care Provider [phone] Encounter Details Date Type Department Care Team (Latest Contact Info) Description 08/11/2020 Abstract [facility] Dental, Provider, DDS Social History Tobacco [...] Description 11/05/2024 11:00 AM EDT Office Visit [facility] [address] [place] [address] Yoshi Sandoval, DMD [address] [place] [address] documented as of this encounter Visit Diagnoses Not on filedocumented in this encounter Care Teams Coupon And Bond Collection Clerk Relationship Specialty Start Date End Date Otilia Quiñones MD [address] [place] [address] PCP - General Family Medicine 09/15/13 documented as of this encounter
--- OUTSIDE RECORDS SUMMARY | 2024-10-15 14:07 | XMS_ITS | Encounter Summary ---
Author Organization [employer] Address [address] [facility] 7t [place] [address] Care Team Providers Care Automatic Spinning Lathe Operator Name Role Phone Otilia Quiñones MD Primary Care Provider [phone] Reason for Visit * Reason Comments Med Refill Encounter Details Date Type Department Care Team ([facility] st Contact Info) Description 11/22/2023 Refill [facility] MED & PEDS [address] [place] [address] Otilia Quiñones MD [address] [place] [address] Social History Tobacco Use Types Packs/Day Years [...] Description 11/05/2024 11:00 AM EDT Office Visit [facility] [address] [place] [address] Yoshi Sandoval, DMD [address] [place] [address] documented as of this encounter Visit Diagnoses Not on filedocumented in this encounter Additional Health Concerns Assessment Noted Time PHQ-9 Depression Total Score: 0 07/03/19 24 10:45 AM EST documented as of this encounter Care Teams Automatic Spinning Lathe Operator Relationship Specialty Start Date End Date Otilia Quiñones MD [address] [place] [address] PCP - General Family Medicine 09/15/13 documented as of this encounter
[2024-10-15 14:22] LABS: MANUAL DIFF FLAG NO
[2024-10-15 14:29] LABS: Basophils Percent Auto 0.6 % (0-2); Eosinophils Absolute Auto 0.2 X10*3/uL (0.0-0.4); Eosinophils Percent Auto 2.4 % (0-4); Hemoglobin 10.9 g/dl (12.0-16.0); Imm Gran Abs Auto 0.02 X10*3/uL (0.00-0.03); Imm Gran Pct Auto 0.3 % (0.0-0.4); Lymphocytes Absolute Auto 1.5 X10*3/uL (1.2-4.9); Mean Corpuscular HGB Conc 31.1 g/dl (31.0-35.0); Mean Corpuscular Hemoglobin 23.4 pg (27.0-33.0); Mean Corpuscular Volume 75.1 fL (80.0-98.0); Monocytes Absolute Auto 0.3 X10*3/uL (0.1-1.2); Monocytes Percent Auto 5.5 % (2-11); Neutrophils Absolute Auto 4.1 x10*3/uL (2.0-8.3); Neutrophils Percent Auto 66.2 % (45-73); Platelet Count 276 X10*3/uL (160-400); Red Blood Count 4.66 X10*6/uL (4.20-5.50); Red Cell Distribution Width 14.8 % (11.0-16.0); White Blood Count 6.2 X10*3/uL (4.8-10.8)
[2024-10-15 15:20] LABS: Alanine Aminotransferase 18 U/L (0-31); Albumin Level 3.9 g/dL (3.5-5.0); Anion Gap 11 (12-20); Aspartate Amino Transferase 20 U/L (5-31); Bilirubin Total 0.4 mg/dL (0.0-1.0); Blood Urea Nitrogen 10 mg/dL (9-16); Calcium 8.7 mg/dL (8.4-10.2); Carbon Dioxide 27 mmol/L (22-29); Chloride 105 mmol/L (96-108); Estimated Glomerular Filt Rate > 60; Glucose Random 97 mg/dL (60-115); Lipase 34 U/L (8-78); Potassium 3.4 mmol/L (3.3-5.1); Sodium 140 mmol/L (135-145); Total Protein 6.8 g/dL (6.5-8.0)
[2024-10-15 15:53] LABS: Alkaline Phosphatase 78 U/L (39-117)
[2024-10-15 16:39] LABS: CT PCR NOT DETECTED (Not Detect.); NG PCR NOT DETECTED (Not Detect.)
[2024-10-16 08:37] LABS: HIV AB/AG Nonreactive (Nonreactive); HIV Num 1 0.05 S/CO (0.00-0.99); ~HepC Num1 0.13 S/CO (0.00-0.79); ~Hepatitis C Antibody Nonreactive (Nonreactive)
== END 2024-10-15 13:32 | disposition home or self-care (01) ==
LOC: HO.CHCLDS 13:31
PROVIDERS: Visit Provider Pediatrics
DX: L30.9 Dermatitis, unspecified (principal); R10.84 Generalized abdominal pain
CPT/HCPCS: 36415; 80053; 83690; 85025; 86803; 87389; 87491; 87591

== ENCOUNTER 2024-10-16 11:17 | Outpatient (REF) | payer MEDICAID, SELFPAY ==
--- OUTSIDE RECORDS SUMMARY | 2024-10-16 11:42 | XMS_ITS | Encounter Summary ---
Author Organization [employer] Address [address] [place] [address] 7 [place] [address] Care Team Providers Care Concrete Mixing Truck Driver Name Role Phone Otilia Quiñones MD Primary Care Provider [phone] Reason for Referral * Imaging (Urgent) - Authorized Specialty Diagnoses / Procedures Referred By Marilynn t Referred To Contact Radiology Diagnoses Generalized abdominal pain Procedures CT Abdomen Pelvis w/ Contrast Otilia Quiñones MD [address] [place] [address] Phone: tel: fax: [address] Phone: tel: fax: Referral ID Status Reason Start Date Expiration Date V isits Requested Visits Authorized [id number] Authorized 10/15/2024 10/15/2025 1 1 * Consultation (Urgent) - Pending Review Specialty Diagnoses / Procedures Referred By Contac t Referred To Contact Dermatology Diagnoses Dermatitis Otilia Quiñones MD [address] [place] [address] Phone: tel: fax: Referral ID Status Reason Start Date Expiration Date Visits Requested Visits Authorized [id number] Pending Review Specialty Services Required 10/15/2024 10/15/2025 1 1 Encounter Details Date Type Department Care Team (Late st Contact Info) Description 10/15/2024 11:00 AM EDT Office Visit [facility] MED & PEDS [address] [place] [address] Otilia Quiñones MD [address] [place] [address] Dermatitis (Primary Dx); Generalized abdominal pain Social [...] the past 12 months, has t he Doorman, gas, oil or water company threatened to [...] 11:00 AM EDT Office Visit [facility] ADULT D[facility]AL [address] [place] [address] Yoshi Sandoval, DMD [address] [place] [address] Scheduled Orders Name Type Priority Associated Diagnoses Orde r Schedule CT Abdomen Pelvis w/ Contrast Imaging Urgent Generalized abdominal pain Expected: 10/15/2024, Expires: 10/15/2025 Helicobacter pylori??Antigen, EIA, Stool Lab Routine Dermatitis Generalized abdominal pain Expected: 10/15/2024, Expires: 10/15/2025 Scheduled Referrals Name Type Priority Associated Diagnoses Order Schedule Referral to Dermatology Outpatient Referral Urgent Dermatitis Expected: 10/15/2024 (Approximate), Expires: 10/15/2025 documented as of this encounter Procedures Procedure Name Priority Date/Time Associated Diagnosis Comments CHLAMYDIA/N. GONORRHOEAE RNA, TMA, UROGENITAL Routine 10/15/2024 1:39 PM EDT Dermatitis Generalized abdominal pain CBC WITH AUTO DIFFERENTIAL Routine 10/15/2024 1:34 PM EDT Dermatitis Generalized abdominal pain HEPATITIS C AB W/REFL TO HCV RNA, QN, PCR Routine 10/15/2024 1:34 PM EDT Dermatitis Generalized abdominal pain HIV 1/2 ANTIGEN/ANTIBODY, FOURTH GENERATION W/RFL Routine 10/15/2024 1:34 PM EDT Dermatitis Generalized abdominal pain LIPASE Routine 10/15/2024 1:34 PM EDT Generalized abdominal pain COMPREHENSIVE METABOLIC PANEL Routine 10/15/2024 1:34 PM EDT Dermatitis Generalized abdominal pain documented in this encounter Results * Chlamydia/N. Gonorrhoeae RNA, TMA, Urogenitial (10/15/2024 1:39 PM EDT) CT PCR NOT DETECTED Not Detect. [facility] Comment:A not detected test result [...] psychologicalconsequences. NG PCR NOT DETECTED Not Detect. [facility] Comment:A not detected test result [...] lead to adverse medical, social or psychologicalconsequences. Swab (Vaginal Swab) 10/15/2024 1:39 PM EDT 10/15/2024 2:25 PM EDT Narrative [facility] - 10/15/2024 4:39 PM EDT Urine us Otilia Quiñones MD LAB MICROBIOLOGY - GENERAL OR DERABLES Final Result Performing Organization Address [facility]/ZIP Co de Phone Number [facility] [address] [place] [phone] * Lipase (10/15/2024 1:34 PM EDT) Pathologist [facility] Lipase 34 8 - 78 U/L [facility] Blood Venous blood specimen / Unknown 10/15/2024 1:34 PM EDT 10/15/2024 2:19 PM EDT Otilia Quiñones MD LAB BLOOD ORDERABLES Final Re sult Performing Organization Address [facility] de Phone Number [facility] [address] [place] [phone] * HIV-1/2 Antigen and Antibodies, Fourth Generation, with Reflexes (10/15/2024 1:34 PM EDT) [facility] HIV AB/AG Nonreactive Nonreactive [facility] Comment:HIV-1 p24 Ag and/or HIV-1/HIV-2 Ab not detected.A test result that is nonreactive does not exclude thepossibility of exposure to or infection with HIV-1 and/orHIV-2. Nonreactive results in this assay for individualswith prior exposure to HIV-1 and/or HIV-2 may be due toantigen and antibody levels that are below the limit ofdetection of this assay.The [employer] HIV Ag/Ab Combo assay result andsupplemental assay results should be interpreted inconjunction with the patient's clinical presentation,history and other laboratory results. If the results areinconsistent with clinical evidence, additional testing issuggested to confirm the result. Blood Venous blood specimen / Unknown 10/15/2024 1:34 PM EDT 10/15/2024 2:19 PM EDT Otilia Quiñones MD LAB BLOOD ORDERABLES Final Re sult Performing Organization Address [facility] Co de Phone Number [facility] [address] [place] [phone] * Hepatitis C Antibody with Reflex to HCV, RNA, Quantitative, Real-Time PCR (10/15/2024 1:34 PM EDT) Pathologist [facility] Hepatitis C Antibody Nonreactive Nonreactive [facility] Comment:Antibodies to HCV no t detected; does not exclude early acuteHCV infection. Blood Venous blood specimen / Unknown 10/15/2024 1:34 PM EDT 10/15/2024 2:19 PM EDT Otilia Quiñones MD LAB BLOOD ORDERABLES Final Re sult Performing Organization Address [facility] Co de Phone Number [facility] [address] [place] [phone] * (ABNORMAL) Comprehensive Metabolic Panel (10/15/2024 1:34 PM EDT) [facility] Sodium 140 135 - 145 mmol/L [facility] Potassium 3.4 3.3 - 5.1 mmol/L [facility] Chloride 105 96 - 108 mmol/L [facility] Carbon Dioxide 27 22 - 29 mmol/L [facility] Anion Gap 11(L) 12 - 20 [facility] Urea Nitrogen (BUN) 10 9 - 16 mg/dL [facility] Creatinine, Serum 0.67 0.5 - 1.4 mg/dL [facility] Estimated Glomerular Filt Rate >60 [facility] Comment:Chronic Kidney Disea se: Estimated GFR < 60 mL/min/1.20m6Cqnfzo Kidney Disease: Estimated GFR < 15 mL/min/1.73m2 Glucose 97 60 - 115 mg/dL [facility] Calcium 8.7 8.4 - 10.2 mg/dL [facility] Bilirubin, Total 0.4 0.0 - 1.0 mg/dL [facility] Aspartate Amino Transferase 20 5 - 31 U/L [facility] Alanine Aminotransferase 18 0 - 31 U/L [facility] Total Protein 6.8 6.5 - 8.0 g/dL [facility] Albumin Level 3.9 3.5 - 5.0 g/dL [facility] Alkaline Phosphatase 78 39 - 117 U/L [facility] Blood Venous blood specimen / Unknown 10/15/2024 1:34 PM EDT 10/15/2024 2:19 PM EDT us Otilia Quiñones MD LAB BLOOD ORDERABLES Final Re sult [facility] [address] [place] [phone] * (ABNORMAL) CBC auto differential (10/15/2024 1:34 PM EDT) White Blood Count 6.2 4.8 - 10.8 X10*3/uL [facility] Red Blood Count 4.66 4.20 - 5.50 X10*6/uL [facility] Hemoglobin 10.9(L) 12.0 - 16.0 g/dl [facility] Hematocrit 35.0(L) 37.0 - 47.0 % [facility] Mean Corpuscular Volume 75.1(L) 80.0 - 98.0 fL [facility] Mean Corpuscular Hemoglobin 23.4(L) 27.0 - 33.0 pg [facility] Mean Corpuscular HGB Conc 31.1 31.0 - 35.0 g/dl [facility] Red Cell Distribution Width 14.8 11.0 - 16.0 % [facility] Platelet Count 276 160 - 400 X10*3/uL [facility] Mean Platelet Volume 12.0 9.4 - 12.3 fL [facility] Neutrophils Percent Auto 66.2 45 - 73 % [facility] Imm Gran Pct Auto 0.3 0.0 - 0.4 % [facility] Lymphocytes Percent Auto 25.0 20 - 40 % [facility] Monocytes Percent Auto 5.5 2 - 11 % [facility] Eosinophils Percent Auto 2.4 0 - 4 % [facility] Basophils Percent Auto 0.6 0 - 2 % [facility] NRBC Pct Auto 0.0 0.0 - 0.2 /100WBC [facility] Neutrophils Absolute Auto 4.1 2.0 - 8.3 x10*3/uL [facility] Imm Gran Abs Auto 0.02 0.00 - 0.03 X10*3/uL [facility] Lymphocytes Absolute Auto 1.5 1.2 - 4.9 X10*3/uL [facility] Monocytes Absolute Auto 0.3 0.1 - 1.2 X10*3/uL [facility] Eosinophils Absolute Auto 0.2 0.0 - 0.4 X10*3/uL [facility] Basophils Absolute Auto 0.0 0.0 - 0.2 X10*3/uL [facility] NRBC Abs Auto 0.000 0.0 - 0.012 X10*3/uL [facility] Blood Venous blood specimen / Unknown 10/15/2024 1:34 PM EDT 10/15/2024 2:19 PM EDT Otilia Quiñones MD LAB BLOOD ORDERABLES Final Re sult [facility] [address] [place] [phone] documented in this encounter Visit Diagnoses Diagnosis Dermatitis- Primary Contact dermatitis and other eczema, due to unspecified cause Generalized abdominal pain Abdominal pain, generalized documented in this encounter Additional Health Concerns Assessment Noted Time PHQ-9 Depression Total Score: 0 07/03/19 24 10:45 AM EST documented as of this encounter Care Teams Concrete Mixing Truck Driver Relationship Specialty Start Date End Date Otilia Quiñones MD [address] [place] [phone] PCP - General Family Medicine 09/15/13 documented as of this encounter
--- OUTSIDE RECORDS SUMMARY | 2024-10-16 11:42 | XMS_ITS | Clinical Summary ---
Author Organization [employer] Address [address] [facility] [address] [place] [address] Care Team Providers Care Dowel Pointer Name Role Phone Otilia Quiñones MD Primary Care Provider [phone] Allergies No known active allergies Medications hydrOXYzine [...] Description 10/15/2024 11:00 AM EDT Office Visit [facility] [address] [place] [address] Otilia Quiñones MD Dermatitis (Primary Dx); Generalized abdominal pain 10/15/2024 Travel 09/23/2024 Telephone [facility] [address] [facility] [place] [address] Otilia Quiñones MD 09/23/2024 Telephone [facility] [address] [place] [address] Otilia Quiñones MD 09/23/2024 Orders Only [facility] [address] [place] [address] Otilia Quiñones MD Hiatal hernia (Primary Dx); Schatzki's ring; Dysphagia, unspecified type 09/03/2024 Orders Only [facility] [address] [place] [address] Otilia Quiñones MD Transaminitis (Primary Dx) 08/14/2024 11:15 AM EDT Office Visit [facility] [address] [place] [address] Patsy Man MD Strep pharyngitis (Primary Dx); Pain with swallowing 08/14/2024 Travel 08/14/2024 Population Health Risk Score [facility] () Department [address] [place] [phone] Provider, Population Health Generic 08/13/2024 Telephone [facility] [address] [place] [address] Otilia Quiñones MD 08/10/2024 Orders Only [facility] External Provider, [facility] 07/30/2024 11:00 AM EST Office Visit [facility] [address] [place] [address] Dolores Jasmine from Last 3 Months Immunizations [...] 11/05/2024 11:00 AM EDT Office Visit [facility] [address] [place] [address] Yoshi Sandoval, JUDI [address] [place] [address] Health Maintenance Due Date Last Done Comments [...] 1-dose 75+ series) 2051 HIV Screening Completed 10/15/2024, 06/04, 10/31/2023, Additional history exists Hepatitis C Screening Completed 10/15/2024 , 06/26/2024, 10/31/2023, Additional history exists HIB Vaccines Aged Out [...] 1:39 PM EDT Dermatitis Generalized abdominal pain LIPASE Routine 10/15/2024 1:34 PM EDT Generalized abdominal pain HIV 1/2 ANTIGEN/ANTIBODY, FOURTH GENERATION W/RFL Routine 10/15/2024 1:34 PM EDT Dermatitis Generalized abdominal pain HEPATITIS C AB W/REFL TO HCV RNA, QN, PCR Routine 10/15/2024 1:34 PM EDT Dermatitis Generalized abdominal pain COMPREHENSIVE METABOLIC PANEL Routine 10/15/2024 1:34 PM EDT Dermatitis Generalized abdominal pain CBC WITH AUTO DIFFERENTIAL Routine 10/15/2024 1:34 PM EDT Dermatitis Generalized abdominal pain VASC US LOWER EXTREMITY VENOUS DUPLEX BILATERAL Routine 10/07/2024 [...] PER QUADRANT Routine 07/30/2024 11:00 AM EST BI MAMMOGRAM DIAGNOSTIC TOMOSYNTHESIS BILATERAL Routine 06/17/2024 [...] EDT) CT PCR NOT DETECTED Not Detect. [facility] Comment:A not detected test result [...] psychologicalconsequences. NG PCR NOT DETECTED Not Detect. [facility] Comment:A not detected test result [...] PM EDT 10/15/2024 2:25 PM EDT Narrative [facility] - 10/15/2024 4:39 PM EDT Urine us Otilia Quiñones MD LAB MICROBIOLOGY - GENERAL OR DERABLES Final Result [facility] [address] [place] [address] [phone] * (ABNORMAL) CBC auto differential (10/15/2024 1:34 PM EDT) White Blood Count 6.2 4.8 - 10.8 X10*3/uL [facility] Red Blood Count 4.66 4.20 - 5.50 X10*6/uL [facility] Hemoglobin 10.9(L) 12.0 - 16.0 g/dl [facility] Hematocrit 35.0(L) 37.0 - 47.0 % [facility] Mean Corpuscular Volume 75.1(L) 80.0 - 98.0 fL [facility] Mean Corpuscular Hemoglobin 23.4(L) 27.0 - 33.0 pg [facility] Mean Corpuscular HGB Conc 31.1 31.0 - 35.0 g/dl [facility] Red Cell Distribution Width 14.8 11.0 - 16.0 % [facility] Platelet Count 276 160 - 400 X10*3/uL [facility] Mean Platelet Volume 12.0 9.4 - 12.3 fL [facility] Neutrophils Percent Auto 66.2 45 - 73 % [facility] Imm Gran Pct Auto 0.3 0.0 - 0.4 % [facility] Lymphocytes Percent Auto 25.0 20 - 40 % [facility] Monocytes Percent Auto 5.5 2 - 11 % [facility] Eosinophils Percent Auto 2.4 0 - 4 % [facility] Basophils Percent Auto 0.6 0 - 2 % [facility] NRBC Pct Auto 0.0 0.0 - 0.2 /100WBC [facility] Neutrophils Absolute Auto 4.1 2.0 - 8.3 x10*3/uL [facility] Imm Gran Abs Auto 0.02 0.00 - 0.03 X10*3/uL [facility] Lymphocytes Absolute Auto 1.5 1.2 - 4.9 X10*3/uL [facility] Monocytes Absolute Auto 0.3 0.1 - 1.2 X10*3/uL [facility] Eosinophils Absolute Auto 0.2 0.0 - 0.4 X10*3/uL [facility] Basophils Absolute Auto 0.0 0.0 - 0.2 X10*3/uL [facility] NRBC Abs Auto 0.000 0.0 - 0.012 X10*3/uL [facility] Blood Venous blood specimen / Unknown 10/15/2024 1:34 PM EDT 10/15/2024 2:19 PM EDT Otilia Quiñones MD LAB BLOOD ORDERABLES Final Re sult Performing Organization Address [facility] Co de Phone Number [facility] [address] [place] [phone] * Hepatitis C Antibody with Reflex to HCV, RNA, Quantitative, Real-Time PCR (10/15/2024 1:34 PM EDT) [facility] Hepatitis C Antibody Nonreactive Nonreactive [facility] Comment:Antibodies to HCV no t detected; does not exclude early acuteHCV infection. Blood Venous blood specimen / Unknown 10/15/2024 1:34 PM EDT 10/15/2024 2:19 PM EDT Otilia Quiñones MD LAB BLOOD ORDERABLES Final Re sult Performing Organization Address [facility] Co de Phone Number [facility] [address] [place] [phone] * HIV-1/2 Antigen and Antibodies, Fourth Generation, with Reflexes (10/15/2024 1:34 PM EDT) Pathologist [facility] HIV AB/AG Nonreactive Nonreactive [facility] Comment:HIV-1 p24 Ag and/or HIV-1/HIV-2 Ab not detected.A test result that is nonreactive does not exclude thepossibility of exposure to or infection with HIV-1 and/orHIV-2. Nonreactive results in this assay for individualswith prior exposure to HIV-1 and/or HIV-2 may be due toantigen and antibody levels that are below the limit ofdetection of this assay.The [employer]rvana HIV Ag/Ab Combo assay result andsupplemental assay results should be interpreted inconjunction with the patient's clinical presentation,history and other laboratory results. If the results areinconsistent with clinical evidence, additional testing issuggested to confirm the result. Blood Venous blood specimen / Unknown 10/15/2024 1:34 PM EDT 10/15/2024 2:19 PM EDT Otilia Quiñones MD LAB BLOOD ORDERABLES Final Re sult Performing Organization Address [facility] Co de Phone Number [facility] [address] [place] [phone] * Lipase (10/15/2024 1:34 PM EDT) Lipase 34 8 - 78 U/L [facility] Blood Venous blood specimen / Unknown 10/15/2024 1:34 PM EDT 10/15/2024 2:19 PM EDT Otilia Quiñones MD LAB BLOOD ORDERABLES Final Re sult Performing Organization Address [facility] de Phone Number [facility] [address] [place] [phone] * (ABNORMAL) Comprehensive Metabolic Panel (10/15/2024 1:34 PM EDT) Sodium 140 135 - 145 mmol/L [facility] Potassium 3.4 3.3 - 5.1 mmol/L [facility] Chloride 105 96 - 108 mmol/L [facility] Carbon Dioxide 27 22 - 29 mmol/L [facility] Anion Gap 11(L) 12 - 20 [facility] Urea Nitrogen (BUN) 10 9 - 16 mg/dL [facility] Creatinine, Serum 0.67 0.5 - 1.4 mg/dL [facility] Estimated Glomerular Filt Rate >60 [facility] Comment:Chronic Kidney Disea se: Estimated GFR < 60 mL/min/1.88s7Lzinus Kidney Disease: Estimated GFR < 15 mL/min/1.73m2 Glucose 97 60 - 115 mg/dL [facility] Calcium 8.7 8.4 - 10.2 mg/dL [facility] Bilirubin, Total 0.4 0.0 - 1.0 mg/dL [facility] Aspartate Amino Transferase 20 5 - 31 U/L [facility] Alanine Aminotransferase 18 0 - 31 U/L [facility] Total Protein 6.8 6.5 - 8.0 g/dL [facility] Albumin Level 3.9 3.5 - 5.0 g/dL [facility] Alkaline Phosphatase 78 39 - 117 U/L [facility] Blood Venous blood specimen / Unknown 10/15/2024 1:34 PM EDT 10/15/2024 2:19 PM EDT us Otilia Quiñones MD LAB BLOOD ORDERABLES Final Re sult [facility] [address] [place] [address] [phone] * VASC Lower Extremity Venous Duplex Bilateral (10/07/2024 10:23 AM EDT) 10/07/2024 10:2 3 AM EDT Narrative [facility] - 10/07/2024 11:33 AM EDT ? [facility] ?[address] ?[place] [address] ? Ultrasound Report ? Signed ? Patient: Hobbs,Geovanna ?MR#: [id number] ?? 74 ? : 1975 ?Acct:[id number] ? Age/Sex: 49 / F ?ADM Date: 05/07/25 ? Loc: HO.US ? Attending Dr: Cory Herzog MD ? Ordering Physician: Cory Herzog MD ?? Date of Service: 10/07/24 ?? Procedure(s): US venous duplex LE BI ?? Accession Number(s): [id number] ? cc: Otilia Quiñones MD; Cory Herzog [...] 3132 ms in the proximal calf. ? US/US venous duplex LE BI ?? IMPRESSION: ?? [...] DD/ 1023 ? TD/TT: 10/07/24 1054 ? Fbi Profiler: ? Procedure Note Donnieves, Image - 10/07/2024 [place] [address] Ultrasound Report Signed Patient: Geovanna HobbsMR#: [id number] 74 : 1975Acct:[id number] Age/Sex: 49 / FADM Date: 10/07/24 Loc: HO.US Attending Dr: Cory Herzog MD Ordering Physician: Cory Herzog MD Date of Service: 10/07/24 Procedure(s): US venous duplex LE BI Accession Number(s): [id number] cc: Otilia Quiñones MD; Cory Herzog MD [...] 10/07/24 1130 DD/ 1023 TD/TT: 10/07/24 1054 Fbi Profiler: [facility] External Provider CV VASC ULAR PROCEDURES Final Result [facility] [address] [place] [phone] * US Head Neck Soft Tissue (09/17/2024 2:13 PM EDT) Anatomical Region Laterality Modality Head, Neck Ultrasound 09/17/2024 2:13 PM EDT Narrative 09/18/2024 8:32 AM EDT ? [facility] ?[address] ? [place] [address] ? Ultrasound Report ? Signed ? Patient: Hobbs,Geovanna ?MR#: [id number] ?? 74 ? : 1975 ?Acct:[id number] ? Age/Sex: 49 / F ?ADM Date: 09/17/24 ? Loc: HO.HMGCX ? Attending Dr: Patsy Man MD ? Ordering Physician: Patsy Man MD ?? Date of Service: 09/17/24 ?? Procedure(s): US soft tiss head and/or neck ?? Accession Number(s): [id number] ? cc: Otilia Quiñones MD; Patsy Man [...] DD/ 1413 ? TD/TT: 09/17/24 1425 ? Fbi Profiler: ? Procedure Note Addison, Image - 09/18/2024 [facility] [address] [place] [address] [place] [address] Ultrasound Report Signed Patient: Geovanna HobbsMR#: [id number] 74 : 1975Acct:[id number] Age/Sex: 49 / FADM Date: 09/17/24 Loc: HO.HMGCX Attending Dr: Patsy Man MD Ordering Physician: Patsy Man MD Date of Service: 09/17/24 Procedure(s): US soft tiss head and/or neck Accession Number(s): [id number] cc: Otilia Quiñones MD; Patsy Man MD [...] 08:29 AM EDT RP Dictated By: Fredy Nnio MD Signed By: <Electronically signed by Fredy Nino MD in OV> 09/18/24 0829 DD/ 1413 TD/TT: 09/17/24 142 Fbi Profiler: us Patsy Man MD IMG US PROCEDURES Edited Result - Final * US Abdomen Limited (09/17/2024 2:03 PM EDT) Anatomical Region Laterality Modality Abdomen Ultrasound 09/17/2024 2:03 PM EDT Narrative 09/17/2024 2:47 PM EDT ? [facility] ?[address] [facility] ? [place] [address] ? Ultrasound Report ? Signed ? Patient: Geovanna Hobbs ?MR#: [id number] ?? 74 ? : 1975 ?Acct:[id number] ? Age/Sex: 49 / F ?ADM Date: 09/17/24 ? Loc: HO.HMGCX ? Attending Dr: Patsy Man MD ? Ordering Physician: Otilia Quiñones MD ?? Date of Service: 09/17/24 ?? Procedure(s): US abdomen limited ?? Accession Number(s): [id number] ? cc: Otilia Quiñones MD ? EXAMINATION: [...] DD/ 1403 ? TD/TT: 09/17/24 1410 ? Fbi Profiler: ? Procedure Note Addison, Image - 09/17/2024 [facility] [facility] [address] [place], [place] [address] Ultrasound Report Signed Patient: Geovanna Hobbs#: [id number] 74 : 1975Acct:[id number] Age/Sex: 49 / FADM Date: 09/17/24 Loc: HO.HMGCX Attending Dr: Patsy Man MD Ordering Physician: Otilia Quiñones MD Date of Service: 09/17/24 Procedure(s): US abdomen limited Accession Number(s): [id number] cc: Otilia Quiñones MD EXAMINATION: US ABDOMEN [...] 09/17/24 1444 DD/ 1403 TD/TT: 09/17/24 1410 Fbi Profiler: us Otilia Quiñones MD IMG US PROCEDURES Final Resul t * FL Upper GI w/air w/Barium Swallow (09/16/2024 9:50 AM EDT) Anatomical Region Laterality Modality Body Radiographic Renée ging 09/16/2024 9:50 AM EDT Narrative 09/16/2024 10:57 AM EDT ? [facility] ?[address] ?[place] [address] ? Fluoroscopy Report ? Signed ? Patient: Hobbs,Geovanna ?MR#: [id number] ?? 74 ? : 1975 ?Acct:[id number] ? Age/Sex: 49 / F ?ADM Date: 09/16/24 ? Loc: HO.XRAY ? Attending Dr: Otilia Quiñones MD ? Ordering Physician: Otilia Quiñones MD ?? Date of Service: 09/16/24 ?? Procedure(s): FL upper GI w air w Ba Swallow ?? Accession Number(s): [id number] ? cc: Otilia Quiñones MD ? EXAMINATION: [...] DD/ 0950 ? TD/TT: 09/16/24 1020 ? Fbi Profiler: ? Procedure Note Robbie Jaime - 09/16/2024 [place] [address] Fluoroscopy Report Signed Patient: Geovanna HobbsMR#: [id number] 74 : 1975Acct:[id number] Age/Sex: 49 / FADM Date: 09/16/24 Loc: DESIREE Attending Dr: Otilia Quiñones MD Ordering Physician: Otilia Quiñones MD Date of Service: 09/16/24 Procedure(s): FL upper GI w air w Ba Swallow Accession Number(s): [id number] cc: Otilia Quiñones MD EXAMINATION: XR FLUOROSCOPY [...] Boo MD in OV> 09/16/24 1055 DD/ 0932 TD/TT: 09/16/24 1020 Fbi Profiler: us Otilia Quiñones MD IMG FLUOROSCOPY PROCEDURES Fi nal Result * POCT Rapid Covid-19 BinaxNOW (08/14/2024 11:30 AM EDT) [facility] Rapid COVID Ag Negative QC Media Lot # [id number] Lot# Expiration Date [id number] Swab 08/14/2024 11:3 0 AM EDT Patsy Man MD POINT OF CARE TEST ENTER/EDIT OR DERABLES Final Result * (ABNORMAL) POCT Rapid Strep A OSOM (08/14/2024 11:29 AM EDT) [facility] Strep A Screen Positive( A) Negative, None Detected QC Media Lot # [id number] Lot# Expiration Date [id number] Swab 08/14/2024 11:2 9 AM EDT Patsy Man MD POINT OF CARE TEST ENTER/EDIT OR DERABLES Final Result * VASC US Lower Extremity Arterial Duplex Bilateral With Karli (08/10/2024 10:52 AM EDT) 08/10/2024 10:5 2 AM EDT Narrative [facility] - 08/11/2024 8:55 AM EDT ? [facility] ?[address] ?[place] [address] ? Ultrasound Report ? Signed ? Patient: Hobbs,Geovanna ?MR#: [id number] ?? 74 ? : 1975 ?Acct:[id number] ? Age/Sex: 49 / F ?ADM Date: 03/10/25 ? Loc: HO.US ? Attending Dr: Cory Herzog MD ? Ordering Physician: Cory Herzog MD ?? Date of Service: 08/10/24 ?? Procedure(s): US arterial duplex BI w/ KARLI ?? Accession Number(s): [id number] ? cc: Otilia Quiñones MD; Cory Herzog [...] ?? 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 ? KALRI Reference: ?? - >1.4 = calcified vessels [...] Orosco MD ??08/11/2024 08:52 AM ?? EDT ? Dictated By: ?Braeden Paul MD ? Signed By: ?<Electronically signed by Braeden Cordoba MD in OV> ? 08/11/24 0852 ? DD/ 1052 ? TD/TT: 08/10/24 1144 ? Fbi Profiler: ? Procedure Note Addison, Image - 08/11/[address] [address] Ultrasound Report Signed Patient: Peyton Hobbs#: [id number] 74 : 1975Acct:[id number] Age/Sex: 49 / FADM Date: 08/10/24 Loc: HO.US Attending Dr: Cory Herzog MD Ordering Physician: Cory Herzog MD Date of Service: 08/10/24 Procedure(s): US arterial duplex BI w/ KARLI Accession Number(s): [id number] cc: Otilia Quiñones MD; Cory Herzog MD [...] 08/11/24 0852 DD/ 1052 TD/TT: 08/10/24 1144 Fbi Profiler: [facility] External Provider CV VASC ULAR PROCEDURES Final Result [facility] [address] [place] [address] * BI Mammogram Diagnostic Tomosynthesis Bilateral (06/17/2024 11:18 AM EST) Anatomical Region Laterality Modality Breast Bilateral Mammography 06/17/2024 11:1 8 AM EST Narrative 06/17/2024 1:06 PM EST ? [facility] ? [address] ?[place] [address] ? Mammography Report ? Signed ? Patient: Hobbs,Geovanna ?MR#: [id number] ?? 74 ? : 1975 ?Acct:[id number] ? Age/Sex: 48 / F ?ADM Date: 01/15/25 ? Loc: HO.MAMMO ? Attending Dr: Yunier Bentley MD ? Ordering Physician: Yunier Bentley MD ?Results: 2Beni ?? gn Findings ? Date of Service: 06/17/24 ?Follow Up: 1 Year From Orig ?? inal Mammogram ? Procedure(s): MM tomosynthesis diagnostic BI ?? Accession Number(s): [id number] ? cc: Otilia Quiñones MD; Yunier Bentley [...] DD/ 1118 ? TD/TT: 06/17/24 1146 ? Fbi Profiler: ? Procedure Note Donnikkiter, Image - 06/17/2024 [facility] [address] [place] [address] Mammography Report Signed Patient: Geovanna HobbsMR#: [id number] 74 : 1975Acct:[id number] Age/Sex: 48 / FADM Date: 06/17/24 Loc: HO.MAMMO Attending Dr: Yunier Bentley MD Ordering Physician: Yunier Bentley MDResults: 2Beni gn Findings Date of Service: 06/17/24Follow Up: 1 Year From Orig inal Mammogram Procedure(s): MM tomosynthesis diagnostic BI Accession Number(s): [id number] cc: Otilia Quiñones MD; Yunier Bentley MD [...] DO 06/17/2024 01:03 PM EST RP Workstation: [employer] Dictated By: Criselda Jimenez DO Signed By: <Electronically signed by Criselda Jimenez DO in OV> 06/17/24 1303 DD/ 1118 TD/TT: 06/17/24 1146 Fbi Profiler: [facility] External Provider IMG BI PROCEDURES Final Result * THINPREP PAP (08/02/2020 9:01 AM EST) Clinical Information: None given [facility] COMMENT SEE COMMENT [facility] ON [...] historic and ?? current clinical information. ?? Explosive Ordnance Handler : SEE COMMENT [facility] Comment: BK,CT(ASCP) CT screening location: [address] Interpretation/R esult: Negative for intraepithelial lesion or malignancy. [facility] LMP: 06/03/2020 [facility] Prev. BX: NONE GIVEN [facility] Prev. PAP: NONE GIVEN [facility]OUND[facility] ON [facility] Review Explosive Ordnance Handler : SEE COMMENT [facility] Comment: SL, CT(ASCP) CT screening location: [address] ??[address] SOURCE: None given [facility] Statement Of Adequacy: SEE COMMENT [facility] Comment: Satisfactory for evaluation. Endocervical/transformation zone component absent. 08/02/2020 9:01 AM EST Thania Alvarez CNM LAB PATHOLOGY ORDERABLES Final Result Performing Organization Address [facility]/ZIP Co de Phone Number [facility] [address] * HPV mRNA E6/E7 (08/02/2020 9:01 AM EST) HPV nRNA E6/E7 Not Detected Not Detected [facility] Comment: Methodology: Grade And Center Marker-Mediated Amplification This assay detects E6/E7 viral messenger RNA (mRNA) from 14 high-risk HPV types (16,18,31,33,35,39,45,51,52,56,58,59,66,68). ? The analytical performance characteristics of this assay have been determined by [employer]. The modifications have not been cleared or approved by the FDA. This assay has been validated pursuant to the CLIA regulations and is used for clinical purposes. ?? For additional information, please refer to http://education.[employer]/faq/PLZ611x8 (This link if provided for information/ educational purposes only.) 08/02/2020 9:01 AM EST Thania HORN LAB BLOOD ORDERABLES Kelly l Result Performing Organization Address [facility]/ZIP Co de Phone Number [facility] [address] from Last 3 Months or Most Recently Relevant to Health Maintenance Insurance [facility] C3 DENTAL-[facility] MEDICAID STAND ADULT Care Teams Dowel Pointer Relationship Specialty Start Date End Date Otilia Quiñones MD [address] [facility] [place] PCP - General Family Medicine 09/15/13
--- OUTSIDE RECORDS SUMMARY | 2024-10-16 11:42 | XMS_ITS | Encounter Summary ---
Author Organization [employer] Address [address] [facility] [place] [address] Care Team Providers Care Vacuum Cooker Operator Name Role Phone Otilia Quiñones MD Primary Care Provider [phone] Encounter Details Date Type Department Care Team [...] Description 11/05/2024 11:00 AM EDT Office Visit [facility] AD[facility]AL [address] [place] [address] Yoshi [place], DMD [address] [place] [address] documented as of this encounter Visit Diagnoses Not on filedocumented in this encounter Additional Health Concerns Assessment Noted Time PHQ-9 Depression Total Score: 0 07/03/19 24 10:45 AM EST documented as of this encounter Care Teams Vacuum Cooker Operator Relationship Specialty Start Date End Date Otilia Quiñones MD [address] [place] [address] PCP - General Family Medicine 09/15/13 documented as of this encounter
--- OUTSIDE RECORDS SUMMARY | 2024-10-16 11:42 | XMS_ITS | Encounter Summary ---
Author Organization [employer] Address [address] [place] [address] [address] [place] [address] Care Team Providers Care Telephone Operator Chief Name Role Phone Otilia Quiñones MD Primary Care Provider [phone] Encounter Details Date Type Department Care Team (Latest Contact Info) Description 08/25/2021 Abstract [facility] CONVERSIONS Dental, Provider, DDS Social [...] Description 11/05/2024 11:00 AM EDT Office Visit [facility] ADULT DENTAL [address] [place] [address] Yoshi [place], DMD [address] [place] [address] documented as of this encounter Visit Diagnoses Not on filedocumented in this encounter Care Teams Telephone Operator Chief Relationship Specialty Start Date End Date Otilia Quiñones MD [address] [place] [address] PCP - General Family Medicine 09/15/13 documented as of this encounter
--- OUTSIDE RECORDS SUMMARY | 2024-10-16 11:42 | XMS_ITS | Encounter Summary ---
Author Organization [employer] Address [address] [facility] [address]t [place] [address] Care Team Providers Care Chain Mortiser Operator Name Role Phone Otilia Quiñones MD Primary Care Provider [phone] Reason for Visit * Reason Comments Med Refill Encounter Details Date Type Department Care Team ([facility] st Contact Info) Description 11/22/2023 Refill [facility] MED & PEDS [address] [place] [address] Otilia Quiñones MD [address] [place] [address] Social History Tobacco Use Types Packs/Day Years [...] 11/05/2024 11:00 AM EDT Office Visit [facility] AD[facility] [address] [place] [address] Yoshi [place], DMD [address] [place] [address] documented as of this encounter Visit Diagnoses Not on filedocumented in this encounter Additional Health Concerns Assessment Noted Time PHQ-9 Depression Total Score: 0 07/03/19 24 10:45 AM EST documented as of this encounter Care Teams Chain Mortiser Operator Relationship Specialty Start Date End Date Otilia Quiñones MD [address] [place] [address] PCP - General Family Medicine 09/15/13 documented as of this encounter
--- OUTSIDE RECORDS SUMMARY | 2024-10-16 11:42 | XMS_ITS | Encounter Summary ---
Author Organization [employer] Address [address] [facility] [address] [place] [address] Care Team Providers Care Newspaper Carrier Name Role Phone Otilia Quiñones MD Primary Care Provider [phone] Encounter Details Date Type Department Care Team (Late st Contact Info) Description 03/28/2023 Abstract [facility] MEDICINE [address] [place] [address] Otilia Quiñones MD [address] [place], [place] [id number] Social History Tobacco Use Types Packs/Day Years [...] Description 11/05/2024 11:00 AM EDT Office Visit [facility] [address] [place] [address] Yoshi Sandoval, DMD [address] [place] [address] documented as of this encounter Visit Diagnoses Not on filedocumented in this encounter Care Teams Newspaper Carrier Relationship Specialty Start Date End Date Otilia Quiñones MD [address] [place] [address] PCP - General Family Medicine 09/15/13 documented as of this encounter
--- OUTSIDE RECORDS SUMMARY | 2024-10-16 11:42 | XMS_ITS | Encounter Summary ---
Author Organization [employer] Address [address] [place] [address] 7[address] [place] [address] Care Team Providers Care Microbiology Professor Name Role Phone Otilia Quiñones MD Primary Care Provider Encounter Details Date Type Department Care Team (Latest Contact Info) Description 08/11/2020 Abstract [facility] CONVERSIONS Dental, Provider, DDS Social History [...] Description 11/05/2024 11:00 AM EDT Office Visit [facility] ADULT DENTAL [address] [place] [address] Yoshi Sandoval, DMD [address] [place] [address] documented as of this encounter Visit Diagnoses Not on filedocumented in this encounter Care Teams Microbiology Professor Relationship Specialty Start Date End Date Otilia Quiñones MD [address] [place] [address] PCP - General Family Medicine 09/15/13 documented as of this encounter
== END 2024-10-16 11:18 | disposition home or self-care (01) ==
LOC: HO.CHCLNP 11:17
PROVIDERS: Visit Provider Pediatrics
DX: L30.9 Dermatitis, unspecified (principal); R10.84 Generalized abdominal pain
CPT/HCPCS: 87338

== ENCOUNTER 2024-10-20 11:01 | Outpatient (AMB) | payer MEDICAID, SELFPAY ==
--- NOTE | 2024-10-20 11:18 | MHC.OFFVIS ---
Vital Signs 10/20/24 11:20 Height 5 ft 3 in Weight 143 lb BMI 25.3 Intake Visit Reasons: follow up s/p [facility] 10/07/24 Intake Note: follow up [facility] 10/07/24, pt states bilateral LE are equal in swelling and discoloration. STates over last 2 weeks she started getting numbness and burning in her toes. Title Investigator Required: No Accompanied by: Self / Same As Patient Allergies No Known Allergies [No Known Allergies*] Allergy (Verified 10/20/24 11:21) HPI HPI follow up s/p [facility] 10/07/24: Details: Geovanna is presenting today as a follow up to [facility], performed on 10/07. She continues to have bilateral lower extremity swelling x6m; she states appx 2w ago she began having numbness in her toes and on the bottom of her feet. She continues with constant pain in her legs. COUNTS INCLUDE 234 BEDS AT THE [facility] Medical History Prolapsed hemorrhoids Bleeding hemorrhoids Smoker Anxiety Surgical History History of tubal ligation H/O section Family History Maternal Grandmother Breast cancer Social History Substance Use Type: Marijuana Female Reproductive History Menstrual Age of Menarche: 14 Review of Systems Const Reports as per HPI and Denies weakness ENT Reports Normal hearing present and Denies dizziness Card Reports as per HPI, Denies chest pain, Denies chest pain at rest, Denies chest pain with activity, Denies dyspnea and Denies dyspnea on exertion Resp Reports as per HPI, Denies cough, Denies dyspnea and Denies dyspnea on exertion GI Reports as per HPI, Denies abdominal pain, Denies nausea and Denies vomiting Musc Denies numbness Skin/Breast Reports as per HPI, Denies erythema and Denies wounds Neuro Reports Normal hearing present, Denies dizziness, Denies numbness, Denies Sensory deficit (Neuro) and Denies weakness Psych Reports no additional complaints Endo Reports no additional complaints Physical Exam Vital Signs: BMI result Body Mass Index 25.3 Const General: healthy appearing and no acute distress Orientation/consciousness: patient oriented x3 HEENT Head: Yes normal to inspection Ears: hearing grossly normal bilaterally Mouth: Normal oral and palatal mucosa present Resp Effort & Inspection: normal respiratory effort and able to speak in complete sentences Auscultation: clear to auscultation bilaterally Cardio Jugular venous distension: no JVD Rate: regular rate Rhythm: regular rhythm Heart sounds: S1 normal heart sound present and S2 normal heart sound present Bruits: no abdominal aortic bruits, no carotid bruits, no femoral bruits and no renal bruits Peripheral pulses: Peripheral pulses 2+ throughout GI Inspection: Yes normal to inspection Palpation (GI): No Abdominal aortic bruit present Skin General skin exam: no rashes or lesions noted Wounds: no wounds Hair: normal Neuro General: patient oriented x3 Cranial nerves: Yes Normal hearing present Cognition (Neuro): normal cognition Gait exam (Neuro): Normal gait present Motor exam (neuro): 5/5 motor strength present throughout Sensory Exam: No Sensory deficit (Neuro) Extrem Other: Bilateral lower extremities: +1 peripheral edema noted. Small varicosity noted on the left medial thigh, not painful to palpation. No discoloration noted. General: Yes normal to inspection, Yes full ROM, Yes capillary refill normal and Yes normal gait Results Reviewed Results Reviewed: Brief summary of venous insufficiency testing is as follows: right great saphenous vein: negative, except below the knee with vein size 0.3cm and reflux of >2648 right small saphenous vein: negative right accessory vein: none present left great saphenous vein: negative, except below the knee with vein size 0.3 and reflux of >2932 left small saphenous vein: negative left accessory vein: none present Please note there is no evidence of any venous aneurysms or significant tortuosity Assessment & Plan Assessment & Plan (1) Varicose veins of left lower extremity with inflammation: Code(s): I83.12 - Varicose veins of left lower extremity with inflammation Category: Medical Plan: Geovanna is presenting today as a follow up to US, performed on 10/07/24. There was slight amount of reflux bilaterally below the knees in the GSV; however, the vein size is too small to perform any procedures on. Due to the ongoing pain, swelling, and now numbness, this is likely not due to vascular issues. We discussed to follow up with her PCP for further evaluation and treatment of her symptoms. I discussed with her that if she has any vascular concerns in the future, to reach back out to us. We discussed the importance of continuing with conservative measures including compression socks, elevation, and physical activity. We discussed the importance of a healthy, well balanced diet. Thank you for allowing us to participate in the patient's care. If there are any questions or concerns, please do not hesitate to reach out to us. Coding Level of Care Code Est Pt Level 4 (29968) Diagnoses Varicose veins of left lower extremity with inflammation I83.12 Comment review of US
[2024-10-20 11:20] VITALS: BMI 25.3
--- OUTSIDE RECORDS SUMMARY | 2024-10-20 12:20 | XMS_ITS | Encounter Summary ---
Author Organization [employer] Address [address] [facility] [address] [place] [address] Care Team Providers Care Event Specialist Product Demonstrator Name Role Phone Otilia Quiñones MD Primary Care Provider [phone] Encounter Details Date Type Department Care Team [...] [facility] [address] [place] [address] Yoshi Sandoval, DMD [address] [place] [address] 12/10/2024 11:00 AM EDT Office Visit [facility] MED & PEDS [address] [place] [address] Otilia Quiñones MD [address] [place] [address] documented as of this encounter Visit Diagnoses Not on filedocumented in this encounter Additional Health Concerns Assessment Noted Time PHQ-9 Depression Total Score: 0 07/03/19 24 10:45 AM EST documented as of this encounter Care Teams Event Specialist Product Demonstrator Relationship Specialty Start Date End Date Otilia Quiñones MD [address] [place] [address] PCP - General Family Medicine 09/15/13 documented as of this encounter
--- OUTSIDE RECORDS SUMMARY | 2024-10-20 12:20 | XMS_ITS | Encounter Summary ---
Author Organization [employer] Address [address] [place] [address] [address] [place] [address] Care Team Providers Care Verification Manager Name Role Phone Otilia Quiñones MD Primary Care Provider [phone] Encounter Details Date Type Department Care Team (Latest Contact Info) Description 08/11/2020 Abstract [facility] CONVERSIONS Dental, Provider, DDS Social History Tobacco [...] Upcoming Encounters Date Type Department Care Team ( st Contact Info) Description 11/05/2024 11:00 AM EDT Office Visit [facility] [address] [place] [address] Yoshi Sandoval DMD [address] [place] [address] 12/10/2024 11:00 AM EDT Office Visit [facility] [address] [place] [address] Otilia Quiñones MD [address] [place] [address] documented as of this encounter Visit Diagnoses Not on filedocumented in this encounter Care Teams Verification Manager Relationship Specialty Start Date End Date Otilia Quiñones MD [address] [place] [id number] PCP - General Family Medicine 09/15/13 documented as of this encounter
--- OUTSIDE RECORDS SUMMARY | 2024-10-20 12:20 | XMS_ITS | Clinical Summary ---
Author Organization [employer] Address [address] [facility] 7t [place] [address] Care Team Providers Care Art Class Model Name Role Phone Otilia Quiñones MD Primary Care Provider [phone] Allergies No known active allergies Medications hydrOXYzine HCl (Atarax) 25 MG tablet Take 1 tablet (25 mg) by mouth if needed at bedtime for itching. 1 tab to 2 tabs a day 60 tablet 3 01/08/2023 Active cloNIDine (Catapres) 0.2 MG tablet Take 1 tab orally qhs 30 tablet 3 06/26/2024 Active omeprazole (PriLOSEC) [address] capsule Take 1 capsule by mouth Once per day. 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 Will refill her weekly dose. Prolapsed hemorrhoids 03/04/2018 Encounters Date Type Department Care Team Description 10/15/2024 11:00 AM EDT Office Visit [facility] [address] [place] [address] Otilia Quiñones MD Dermatitis (Primary Dx); Generalized abdominal pain; Symptomatic varicose veins of both lower extremities 10/15/2024 Travel 09/23/2024 Telephone [facility] [address] [facility] [place] [address] Otilia Quiñones MD 09/23/2024 Telephone [facility] [address] [place] [address] Otilia Quiñones MD 09/23/2024 Orders Only [facility] [address] [place] [address] Otilia Quiñones MD Hiatal hernia (Primary Dx); Schatzki's ring; Dysphagia, unspecified type 09/03/2024 Orders Only [facility] [address] [place] [address] Otilia Quiñones MD Transaminitis (Primary Dx) 08/14/2024 11:15 AM EDT Office Visit [facility] [address] [place] [address] Patsy Man MD Strep pharyngitis (Primary Dx); Pain with swallowing 08/14/2024 Travel 08/14/2024 Population Health Risk Score [facility] () Department [address] [place] [phone] Provider, Population Health Generic 08/13/2024 Telephone [facility] [address] [place] [address] Otilia Quiñones MD 08/10/2024 Orders Only [facility] External Provider, [facility] 07/30/2024 11:00 AM EST Office Visit [facility] ADULT [facility]ENT[facility] [address] [place] [address] Dolores Jasmine from Last 3 Months Immunizations [...] Description 11/05/2024 11:00 AM EDT Office Visit [facility] AD[facility] D[facility] [address] [facility] [place] [address] Yoshi Sandoval, DMD [address] [place] [address] 12/10/2024 11:00 AM EDT Office Visit [facility] [address] [place] [address] Otilia Quiñones MD [address] [place] [address] Health Maintenance Due Date Last Done Comments CT Colonography 1976 Colonoscopy 1975 Colorectal Cancer Screening 1976 FIT DNA/Cologuard 1976 FIT 1975 FOBT 1975 Sigmoidoscopy 1975 Disability Screening 1976 Alcohol/Substance Use Screening 1988 Family Planning [...] Procedure Name Priority Date/Time Associated Diagnosis Comments HELICOBACTER PYLORI AG, EIA, STOOL Routine 10/16/2024 10:15 AM EDT Dermatitis Generalized abdominal pain CHLAMYDIA/N. GONORRHOEAE RNA, TMA, UROGENITAL Routine 10/15/2024 [...] 1:34 PM EDT Dermatitis Generalized abdominal pain [facility] LOWER EXTREMITY VENOUS DUPLEX BILATERAL Routine 10/07/2024 [...] 11 :29 AM EDT Strep pharyngitis [facility] LOWER EXTREMITY ARTERIAL DUPLEX BILATERAL WITH KARLI [...] Recently Relevant to Health Maintenance Results * (ABNORMAL) Helicobacter pylori??Antigen, EIA, Stool (10/16/2024 10:15 AM EDT) H pylori Ag Stool SEE NOTE(A) [facility] Comment:HELICOBACTER PYLORI AG, EIA, STOOL Micro Number: [id number] Test Status: Final Specimen Source: Stool Specimen Quality: Adequate H.pylori Ag: Detected Reference Range: Not DetectedTHIS TEST WAS PERFORMED AT:[facility] [address] [id number] NASSAR MD Stool Rectal contents / Unknown 10/16/2024 10:15 AM EDT 10/16/2024 2:24 PM EDT Otilia Quñiones MD LAB BODY FLUIDS AND STOOLS OR DERABLES Final Result [facility] [address] [place] [phone] * Chlamydia/N. Gonorrhoeae RNA, TMA, Urogenitial (10/15/2024 1:39 PM EDT) CT PCR NOT DETECTED Not Detect. [facility] Comment:A not detected test result does [...] psychologicalconsequences. NG PCR NOT DETECTED Not Detect. [facility] Comment:A not detected test result does [...] PM EDT 10/15/2024 2:25 PM EDT Narrative [facility] - 10/15/2024 4:39 PM EDT Urine us Otilia Quiñones MD LAB MICROBIOLOGY - GENERAL OR DERABLES Final Result [facility] [address] [place] [phone] * (ABNORMAL) CBC auto differential (10/15/2024 1:34 PM EDT) White Blood Count 6.2 4.8 - 10.8 X10*3/uL [facility] Red Blood Count 4.66 4.20 - 5.50 X10*6/uL [facility] Hemoglobin 10.9(L) 12.0 - 16.0 g/dl [facility] Hematocrit 35.0(L) 37.0 - 47.0 % [facility] Mean Corpuscular Volume 75.1(L) 80.0 - 98.0 fL [facility] Mean Corpuscular Hemoglobin 23.4(L) 27.0 - 33.0 pg [facility] Mean Corpuscular HGB Conc 31.1 31.0 - 35.0 g/dl [facility] Red Cell Distribution Width 14.8 11.0 - 16.0 % [facility] Platelet Count 276 160 - 400 X10*3/uL [facility] Mean Platelet Volume 12.0 9.4 - 12.3 fL [facility] Neutrophils Percent Auto 66.2 45 - 73 % [facility] Imm Gran Pct Auto 0.3 0.0 - 0.4 % [facility] Lymphocytes Percent Auto 25.0 20 - 40 % [facility] Monocytes Percent Auto 5.5 2 - 11 % [facility] Eosinophils Percent Auto 2.4 0 - 4 % [facility] Basophils Percent Auto 0.6 0 - 2 % [facility] NRBC Pct Auto 0.0 0.0 - 0.2 /100WBC [facility] Neutrophils Absolute Auto 4.1 2.0 - 8.3 x10*3/uL [facility] Imm Gran Abs Auto 0.02 0.00 - 0.03 X10*3/uL [facility] Lymphocytes Absolute Auto 1.5 1.2 - 4.9 X10*3/uL [facility] Monocytes Absolute Auto 0.3 0.1 - 1.2 X10*3/uL [facility] Eosinophils Absolute Auto 0.2 0.0 - 0.4 X10*3/uL [facility] Basophils Absolute Auto 0.0 0.0 - 0.2 X10*3/uL [facility] NRBC Abs Auto 0.000 0.0 - 0.012 X10*3/uL [facility] Blood Venous blood specimen / Unknown 10/15/2024 1:34 PM EDT 10/15/2024 2:19 PM EDT us Otilia Quiñones MD LAB BLOOD ORDERABLES Final Re sult [facility] [address] [place] [address] [phone] * Hepatitis C Antibody with Reflex to HCV, RNA, Quantitative, Real-Time PCR (10/15/2024 1:34 PM EDT) Hepatitis C Antibody Nonreactive Nonreactive [facility] Comment:Antibodies to HCV no t detected; does not exclude early acuteHCV infection. Blood Venous blood specimen / Unknown 10/15/2024 1:34 PM EDT 10/15/2024 2:19 PM EDT Otilia Quiñones MD LAB BLOOD ORDERABLES Final Re sult Performing Organization Address [facility] de Phone Number [facility] [address] [place] [phone] * HIV-1/2 Antigen and Antibodies, Fourth Generation, with Reflexes (10/15/2024 1:34 PM EDT) HIV AB/AG Nonreactive Nonreactive [facility] Comment:HIV-1 p24 Ag and/or HIV-1/HIV-2 Ab not detected.A test result that is nonreactive does not exclude thepossibility of exposure to or infection with HIV-1 and/orHIV-2. Nonreactive results in this assay for individualswith prior exposure to HIV-1 and/or HIV-2 may be due toantigen and antibody levels that are below the limit ofdetection of this assay.The [employer] HIV Ag/Ab Combo assay result andsupplemental assay results should be interpreted inconjunction with the patient's clinical presentation,history and other laboratory results. If the results areinconsistent with clinical evidence, additional testing issuggested to confirm the result. Blood Venous blood specimen / Unknown 10/15/2024 1:34 PM EDT 10/15/2024 2:19 PM EDT Otilia Quiñones MD LAB BLOOD ORDERABLES Final Re sult Performing Organization Address [facility]/ZIP Co de Phone Number [facility] [address] [place] [phone] * Lipase (10/15/2024 1:34 PM EDT) Lipase 34 8 - 78 U/L [facility] Blood Venous blood specimen / Unknown 10/15/2024 1:34 PM EDT 10/15/2024 2:19 PM EDT us Otilia Quiñones MD LAB BLOOD ORDERABLES Final Re sult Performing Organization Address [facility] Co de Phone Number [facility] [address] [place] [address] [phone] * (ABNORMAL) Comprehensive Metabolic Panel (10/15/2024 1:34 PM EDT) Pathologist [facility] Sodium 140 135 - 145 mmol/L [facility] Potassium 3.4 3.3 - 5.1 mmol/L [facility] Chloride 105 96 - 108 mmol/L [facility] Carbon Dioxide 27 22 - 29 mmol/L [facility] Anion Gap 11(L) 12 - 20 [facility] Urea Nitrogen (BUN) 10 9 - 16 mg/dL [facility] Creatinine, Serum 0.67 0.5 - 1.4 mg/dL [facility] Estimated Glomerular Filt Rate >60 [facility] Comment:Chronic Kidney Disea se: Estimated GFR < 60 mL/min/1.57j3Eqxyxg Kidney Disease: Estimated GFR < 15 mL/min/1.73m2 Glucose 97 60 - 115 mg/dL [facility] Calcium 8.7 8.4 - 10.2 mg/dL [facility] Bilirubin, Total 0.4 0.0 - 1.0 mg/dL [facility] Aspartate Amino Transferase 20 5 - 31 U/L [facility] Alanine Aminotransferase 18 0 - 31 U/L [facility] Total Protein 6.8 6.5 - 8.0 g/dL [facility] Albumin Level 3.9 3.5 - 5.0 g/dL [facility] Alkaline Phosphatase 78 39 - 117 U/L [facility] Blood Venous blood specimen / Unknown 10/15/2024 1:34 PM EDT 10/15/2024 2:19 PM EDT us Otilia Quiñones MD LAB BLOOD ORDERABLES Final Re sult [facility] [address] [place] [address] [phone] * VASC Lower Extremity Venous Duplex Bilateral (10/07/2024 10:23 AM EDT) 10/07/2024 10:2 3 AM EDT Narrative [facility] - 10/07/2024 11:33 AM EDT ? [facility] ?[address] ?[place] [address] ? Ultrasound Report ? Signed ? Patient: Geovanna Hobbs ?MR#: [id number] ?? 74 ? : 1975 ?Acct:[id number] ? Age/Sex: 49 / F ?ADM Date: 10/07/24 ? Loc: HO.US ? Attending Dr: Cory Herzog MD ? Ordering Physician: Cory Herzog MD ?? Date of Service: 10/07/24 ?? Procedure(s): US venous duplex LE BI ?? Accession Number(s): [id number] ? cc: Otilia Quiñones MD; Cory Herzog [...] DD/ 1023 ? TD/TT: 10/07/24 1054 ? [employer] Printer: ? Procedure Note Donotuseinterpreter, Image - 10/07/[address] [address] Ultrasound Report Signed Patient: Geovanna HobbsMR#: [id number] 74 : 1975Acct:[id number] Age/Sex: 49 / FADM Date: 10/07/24 Loc: HO.US Attending Dr: Cory Herzog MD Ordering Physician: Cory Herzog MD Date of Service: 10/07/24 Procedure(s): US venous duplex LE BI Accession Number(s): [id number] cc: Otilia Quiñones MD; Cory Herzog MD [...] Braeden Orosco MD 10/07/2024 11:30 AM EDT RP Dictated By: Braeden Paul MD Signed By: <Electronically signed by Braeden Cordoba MDin OV> 10/07/24 1130 DD/ 1023 TD/TT: 10/07/24 1054 [employer] Printer: us [facility] External Provider CV VASC ULAR PROCEDURES Final Result [facility] [address] [place] [phone] * US Head Neck Soft Tissue (09/17/2024 2:13 PM EDT) Anatomical Region Laterality Modality Head, Neck Ultrasound 09/17/2024 2:13 PM EDT Narrative 09/18/2024 8:32 AM EDT ? [facility] ?[address] ? [place] [address] ? Ultrasound Report ? Signed ? Patient: Hobbs,Geovanna ?MR#: [id number] ?? 74 ? : 1975 ?Acct:[id number] ? Age/Sex: 49 / F ?ADM Date: 04/17/25 ? Loc: HO.HMGCX ? Attending Dr: Patsy Man MD ? Ordering Physician: Patsy Man MD ?? Date of Service: 09/17/24 ?? Procedure(s): US soft tiss head and/or neck ?? Accession Number(s): [id number] ? cc: Otilia Quiñones MD; Patsy Man [...] DD/ 1413 ? TD/TT: 09/17/24 1425 ? Text[employer] Printer: ? Procedure Note Addison, Robbie - 09/18/2024 [facility] [address] [place] [address] [place] [address] Ultrasound Report Signed Patient: Geovanna HobbsMR#: [id number] 74 : 1975Acct:[id number] Age/Sex: 49 / FADM Date: 09/17/24 Loc: HO.HMGCX Attending Dr: Patsy Man MD Ordering Physician: Patsy Man MD Date of Service: 09/17/24 Procedure(s): US soft tiss head and/or neck Accession Number(s): [id number] cc: Otilia Quiñones MD; Patsy Man MD [...] 09/18/24 0829 DD/ 1413 TD/TT: 09/17/24 1425 [employer] Printer: us Patsy Man MD IMG US PROCEDURES Edited Result - Final * US Abdomen Limited (09/17/2024 2:03 PM EDT) Anatomical Region Laterality Modality Abdomen Ultrasound 09/17/2024 2:03 PM EDT Narrative 09/17/2024 2:47 PM EDT ? [facility] ?[address] ? [place] [address] ? Ultrasound Report ? Signed ? Patient: Hobbs,Geovanna ?MR#: [id number] ?? 74 ? : 1975 ?Acct:[id number] ? Age/Sex: 49 / F ?ADM Date: 09/17/24 ? Loc: HO.HMGCX ? Attending Dr: Patsy Man MD ? Ordering Physician: Otilia Quiñones MD ?? Date of Service: 09/17/24 ?? Procedure(s): US abdomen limited ?? Accession Number(s): [id number] ? cc: Otilia Quiñones MD ? EXAMINATION: [...] DD/ 1403 ? TD/TT: 09/17/24 1410 ? Textiles Printer: ? Procedure Note Donnikkiter, Image - 09/17/2024 [facility] [address] [place] [address] [place] [address] Ultrasound Report Signed Patient: Geovanna HobbsMR#: [id number] 74 : 1975Acct:[id number] Age/Sex: 49 / FADM Date: 09/17/24 Loc: [facility] Att[facility] Dr: Patsy Man MD Ordering Physician: Otilia Quiñones MD Date of Service: 09/17/24 Procedure(s): US abdomen limited Accession Number(s): [id number] cc: Otilia Quiñones MD EXAMINATION: US ABDOMEN [...] 09/17/24 1444 DD/ 1403 TD/TT: 09/17/24 1410 Text[employer] Printer: us Otilia Quiñones MD IMG US PROCEDURES Final Resul t * FL Upper GI w/air w/Barium Swallow (09/16/2024 9:50 AM EDT) Anatomical Region Laterality Modality Body Radiographic Renée ging 09/16/2024 9:50 AM EDT Narrative 09/16/2024 10:57 AM EDT ? [facility] ?[address] ?[place] [address] ? Fluoroscopy Report ? Signed ? Patient: Hobbs,Geovanna ?MR#: [id number] ?? 74 ? : 1975 ?Acct:[id number] ? Age/Sex: 49 / F ?ADM Date: 04/16/25 ? Loc: HO.XRAY ? Attending Dr: Otilia Quiñones MD ? Ordering Physician: Otilia Quiñones MD ?? Date of Service: 09/16/24 ?? Procedure(s): FL upper GI w air w Ba Swallow ?? Accession Number(s): [id number] ? cc: Otilia Quiñones MD ? EXAMINATION: [...] DD/ 0950 ? TD/TT: 09/16/24 1020 ? Textiles Printer: ? Procedure Note Donotuseinterpreter, Image - 09/16/2024 [place] [address] Fluoroscopy Report Signed Patient: Geovanna HobbsMR#: [id number] 74 : 1975Acct:[id number] Age/Sex: 49 / FADM Date: 09/16/24 Loc: DESIREE Attending Dr: Otilia Quiñones MD Ordering Physician: Otilia Quiñones MD Date of Service: 09/16/24 Procedure(s): FL upper GI w air w Ba Swallow Accession Number(s): [id number] cc: Otilia Quiñones MD EXAMINATION: XR FLUOROSCOPY [...] 09/16/24 1055 DD/ 0950 TD/TT: 09/16/24 1020 Text[employer] Printer: us Otilia Quiñones MD IMG FLUOROSCOPY PROCEDURES Fi nal Result * POCT Rapid Covid-19 BinaxNOW (08/14/2024 11:30 AM EDT) [facility] Rapid COVID Ag Negative QC Media Lot # [id number] Lot# Expiration Date [id number] Swab 08/14/2024 11:3 0 AM EDT Patsy Man MD POINT OF CARE TEST ENTER/EDIT OR DERABLES Final Result * (ABNORMAL) POCT Rapid Strep A OSOM (08/14/2024 11:29 AM EDT) Pathologist [facility] Rapid Strep A Screen Positive( A) Negative, None Detected QC Media Lot # [id number] Lot# Expiration Date [id number] Swab 08/14/2024 11:2 9 AM EDT us Patsy Man MD POINT OF CARE TEST ENTER/EDIT OR DERABLES Final Result * VASC Lower Extremity Arterial Duplex Bilateral With Karli (08/10/2024 10:52 AM EDT) 08/10/2024 10:5 2 AM EDT Narrative [facility] - 08/11/2024 8:55 AM EDT ? [facility] ?[address] ?[place] [address] ? Ultrasound Report ? Signed ? Patient: Geovanna Hobbs ?MR#: [id number] ?? 74 ? : 1975 ?Acct:[id number] ? Age/Sex: 49 / F ?ADM Date: 08/10/24 ? Loc: HO.US ? Attending Dr: Cory Herzog MD ? Ordering Physician: Cory Herzog MD ?? Date of Service: 08/10/24 ?? Procedure(s): US arterial duplex BI w/ KARLI ?? Accession Number(s): [id number] ? cc: Otilia Quiñones MD; Cory Herzog [...] DD/ 1052 ? TD/TT: 08/10/24 1144 ? Textiles Printer: ? Procedure Note Addison, Image - 08/11/2024 [place] [address] Ultrasound Report Signed Patient: Geovanna HobbsMR#: [id number] 74 : 1975Acct:[id number] Age/Sex: 49 / FADM Date: 08/10/24 Loc: HO.US Attending Dr: Cory Herzog MD Ordering Physician: Cory Herzog MD Date of Service: 08/10/24 Procedure(s): US arterial duplex BI w/ KARLI Accession Number(s): [id number] cc: Otilia Quiñones MD; Cory Herzog MD [...] 08/11/24 0852 DD/ 1052 TD/TT: 08/10/24 1144 Textiles Printer: us [facility] External Provider CV VASC ULAR PROCEDURES Final Result [facility] [address] [place] [address] * BI Mammogram Diagnostic Tomosynthesis Bilateral (06/17/2024 11:18 AM EST) Anatomical Region Laterality Modality Breast Bilateral Mammography 06/17/2024 11:1 8 AM EST Narrative 06/17/2024 1:06 PM EST ? [facility] [place] ? [address] ?[place] [address] ? Mammography Report ? Signed ? Patient: Faby,Geovanna ?MR#: [id number] ?? 74 ? : 1975 ?Acct:[id number] ? Age/Sex: 48 / F ?ADM Date: 01/15/25 ? Loc: HO.MAMMO ? Attending Dr: Yunier Bentley MD ? Ordering Physician: Yunier Bentley MD ?Results: 2Beni ?? gn Findings ? Date of Service: 06/17/24 ?Follow Up: 1 Year From Orig ?? inal Mammogram ? Procedure(s): MM tomosynthesis diagnostic BI ?? Accession Number(s): [id number] ? cc: Otilia Quiñones MD; Yunier Bentley [...] DD/ 1118 ? TD/TT: 06/17/24 1146 ? Textiles Printer: ? Procedure Note Donotuseinterpreter, Image - 06/17/2024 [place] [facility] [address] [place], [place] [address] Mammography Report Signed Patient: Geovanna HobbsMR#: [id number] 74 : 1975Acct:[id number] Age/Sex: 48 / FADM Date: 06/17/24 Loc: HO.MAMMO Attending Dr: Yunier Bentley MD Ordering Physician: Yunier Bentley MDResults: 2Beni gn Findings Date of Service: 06/17/24Follow Up: 1 Year From Orig inal Mammogram Procedure(s): MM tomosynthesis diagnostic BI Accession Number(s): [id number] cc: Otilia Quiñones MD; Yunier Bentley MD [...] 06/17/24 1303 DD/ 1118 TD/TT: 06/17/24 1146 Textiles Printer: [facility] External Provider IMG BI PROCEDURES Final [...] historic and ?? current clinical information. ?? Space Scheduler : SEE COMMENT [facility] Comment: BK,CT(ASCP) CT screening location: [address] Interpretation/R esult: Negative for intraepithelial lesion or malignancy. [facility] LMP: 06/03/2020 [facility] Prev. BX: NONE GIVEN [facility] Prev. PAP: NONE GIVEN [facility] Review Space Scheduler : SEE COMMENT [facility] Comment: SL, CT(ASCP) CT screening location: [address] ??[address] SOURCE: None given [facility] Statement Of Adequacy: SEE COMMENT [facility] Comment: Satisfactory for evaluation. Endocervical/transformation zone component absent. 08/02/2020 9:01 AM EST [facility] PATHOLOGY ORDERABLES Final Result Performing Organization Address [facility] de Phone Number [facility] [address] * HPV mRNA E6/E7 (08/02/2020 9:01 AM EST) HPV nRNA E6/E7 Not Detected Not Detected [facility] Comment: Methodology: Customer Assistance Representative-Mediated Amplification This assay detects E6/E7 viral messenger RNA (mRNA) from 14 high-risk HPV types (16,18,31,33,35,39,45,51,52,56,58,59,66,68). ? The analytical performance characteristics of this assay have been determined by [employer]. The modifications have not been cleared or approved by the FDA. This assay has been validated pursuant to the CLIA regulations and is used for clinical purposes. ?? For additional information, please refer to http://education.Health Integrated/faq/VXX270c2 (This link if provided for information/ educational purposes only.) 08/02/2020 9:01 AM EST [facility] BLOOD ORDERABLES Kelly l Result Performing Organization Address [facility] de Phone Number [facility] [address] from Last 3 Months or Most Recently Relevant to Health Maintenance Insurance [facility] C3 DENTAL-[facility] MEDICAID STAND ADULT Care Teams Art Class Model Relationship Specialty Start Date End Date Otilia Quiñones MD [address] [place] [address] [place] [address] PCP - General Family Medicine 09/15/13
--- OUTSIDE RECORDS SUMMARY | 2024-10-20 12:20 | XMS_ITS | Encounter Summary ---
Author Organization [employer] Address [address] [place] [address] [address] [place] [address] Care Team Providers Care Editing Internship Name Role Phone Otilia Quiñones MD Primary Care Provider [phone] Encounter Details Date Type Department Care Team (Latest Contact Info) Description 08/25/2021 Abstract [facility] CONVERSIONS Dental, Provider, DDS Social History [...] Description 11/05/2024 11:00 AM EDT Office Visit [facility] [address] [place] [address] Yoshi Sandoval DMD [address] [place] [address] 12/10/2024 11:00 AM EDT Office Visit [facility] [address] [place] [address] Otilia Quiñones MD [address] [place] [address] documented as of this encounter Visit Diagnoses Not on filedocumented in this encounter Care Teams Editing Internship Relationship Specialty Start Date End Date Otilia Quiñones MD [address] [place] [phone] PCP - General Family Medicine 09/15/13 documented as of this encounter
--- OUTSIDE RECORDS SUMMARY | 2024-10-20 12:20 | XMS_ITS | Encounter Summary ---
Author Organization [employer] Address [address] [place] [address] Care Team Providers Care Flight Operations Manager Name Role Phone Otilia Quiñones MD Primary Care Provider [phone] Reason for Referral * Imaging (Urgent) - Authorized Specialty Diagnoses / Procedures Referred By Contac t Referred To Contact Radiology Diagnoses Generalized abdominal pain Procedures CT Abdomen Pelvis w/ Contrast Otilia Quiñones MD [address] [place] [address] Phone: tel: fax: [address] Phone: tel: fax: Referral ID Status Reason Start Date Expiration Date V isits Requested Visits Authorized [id number] Authorized 10/15/2024 10/15/2025 1 1 * Consultation (Urgent) - Authorized Specialty Diagnoses / Procedures Referred By Contac t Referred To Contact Dermatology Diagnoses Dermatitis Otilia Quiñones MD [address] [place] [address] Phone: tel: fax: Florentino Green MD [address] [place] [phone] Phone: tel: fax: Referral ID Status Reason Start Date Expiration Date Visits Requested Visits Authorized [id number] Authorized Specialty Services Required 10/15/2024 10/15/2025 1 1 Encounter Details Date Type Department Care Team (Late st Contact Info) Description 10/15/2024 11:00 AM EDT Office Visit [facility] CHC MED & PEDS [address] [place] [address] Otilia Quiñones MD [address] [place] [address] Dermatitis (Primary Dx); Generalized abdominal pain; Symptomatic varicose veins of both lower extremities Social History Tobacco Use Types Packs/Day Years [...] 10:57 AM EDT documented in this encounter Progress Notes * Otilia Quiñones MD - 10/15/2024 11:00 AM EDT Subjective Patient ID: Geovanna Hobbs is a 49 y.o. female who presents for multiple concerns. Geovanna is a 49 y/o patient of mine with anxiety and chronic abdominal pain,states had 2 episodes of regurgitation of blood recently. No other associated red flag symptoms.Denies drinking alcohol x 2 years, no tobacco use etc..Had an upper GI study which was done due to trouble swallowing which was normal as well as a neck US. Abdominal Pain This is a recurrent problem. The current episode started more than 1 month ago. The problem occurs daily. The problem has been unchanged. The pain is located in the generalized abdominal region. The pain is moderate. The quality of the pain is aching and a sensation of fullness. Associated symptomsinclude hematochezia. Pertinent negatives include no dysuria, fever, hematuria or weight loss. The p ain is aggravated by deep breathing and eating. She has tried proton pump inhibitors for the symptoms. Her past medical history is significant for GERD. There is no history of gallstones. Review of Systems Constitutional: Negative for activity change, fever and weight loss. HENT: Negative for voice change. Gastrointestinal: Positive for abdominal pain, blood in stool and hematochezia. Genitourinary: Negative for dysuria and hematuria. Psychiatric/Behavioral: The patient is nervous/anxious. Objective BP 124/83 (BP Location: Left arm, Patient Position: Sitting, BP Cuff Size: Adult) Pulse70 Temp 98.4 ??F (36.9 ??C) (Oral) Resp 20 Ht 5' 4 (1.626 m) Wt 161 lb (73 kg) SpO2 98% BMI 27.64 kg/m?? Physical Exam Vitals reviewed. Constitutional: General: She is not in acute distress. Appearance: Normal appearance. She is not ill-appearing. HENT: Head: Normocephalic. Right Ear: Tympanic membrane and ear canal normal. Left Ear: Tympanic membrane and ear canal normal. Nose: Nose normal. Mouth/Throat: Mouth: Mucous membranes are moist. Pharynx: No oropharyngeal exudate or posterior oropharyngeal erythema. Eyes: Extraocular Movements: Extraocular movements intact. Conjunctiva/sclera: Conjunctivae normal. Pupils: Pupils are equal, round, and reactive to light. Cardiovascular: Rate and Rhythm: Normal rate and regular rhythm. Pulses: Normal pulses. Heart sounds: Normal heart sounds. Pulmonary: Effort: Pulmonary effort is normal. No respiratory distress. Breath sounds: Normal breath sounds. Abdominal: General: Bowel sounds are normal. There is no distension. Palpations: Abdomen is soft. There is no fluid wave, hepatomegaly, splenomegaly or mass. Tenderness: There is generalized abdominal tenderness. There is no right CVA tenderness, left CVA tenderness or guarding. Musculoskeletal: General: Normal range of motion. Cervical back: Normal range of motion. Skin: General: Skin is warm. Capillary Refill: Capillary refill takes less than 2 seconds. Neurological: General: No focal deficit present. Mental Status: She is alert and oriented to person, place, and time. Psychiatric: Mood and Affect: Mood normal. Behavior: Behavior normal. Thought Content: Thought content normal. Judgment: Judgment normal. Assessment/Plan Diagnoses and all orders for this visit: Dermatitis Comments: Contact dermatitis? Referral to outpatient derm done today. Rash is chronic,not improved on topicalsteroids etc.. Orders: - Referral to Dermatology; Future - CBC auto differential; Future - Comprehensive Metabolic Panel; Future - Chlamydia/N. Gonorrhoeae RNA, TMA, Urogenitial - Hepatitis C Antibody with Reflex to HCV, RNA, Quantitative, Real-Time PCR; Future - HIV-1/2 Antigen and Antibodies, Fourth Generation, with Reflexes; Future - Helicobacter pylori Antigen, EIA, Stool; Future Generalized abdominal pain Comments: Check labs today,pain is generalized radiating to chest sometimes.Swallowing study is normal.CT of abdomen/pelvis ordered today due to hx of blood in stools and 2 episodes of possible hematochexia. Call with results.Go to nearest ER if bleeding again,[ain gets worse etc.. Orders: - CT Abdomen Pelvis w/ Contrast; Future - CBC auto differential; Future - Comprehensive Metabolic Panel; Future - Chlamydia/N. Gonorrhoeae RNA, TMA, Urogenitial - Hepatitis C Antibody with Reflex to HCV, RNA, Quantitative, Real-Time PCR; Future - HIV-1/2 Antigen and Antibodies, Fourth Generation, with Reflexes; Future - Helicobacter pylori Antigen, EIA, Stool; Future - Lipase; Future Symptomatic varicose veins of both lower extremities Comments: Seeing vascular surgery,Workup completed. Has follow up with them. documented in this encounter Plan of Treatment Upcoming Encounters Date Type Department Care Team (Late st Contact Info) Description 11/05/2024 11:00 AM EDT Office Visit [facility] ADULT DENTAL [address] [place] [address] Yoshi Sandoval DMD [address] [place] [address] 12/10/2024 11:00 AM EDT Office Visit [facility] MED & PEDS [address] [place] [address] Otilia Quiñones MD [address] [place] [address] Scheduled Orders Name Type Priority Associated Diagnoses [...] pain documented in this encounter Results * (ABNORMAL) Helicobacter pylori??Antigen, EIA, Stool (10/16/2024 10:15 AM EDT) H pylori Ag Stool SEE NOTE(A) [facility] Comment:HELICOBACTER PYLORI AG, EIA, STOOL Micro Number: [id number] Test Status: Final Specimen Source: Stool Specimen Quality: Adequate H.pylori Ag: Detected Reference Range: Not DetectedTHIS TEST WAS PERFORMED AT:[employer] [place] [id number] NASSAR MD Stool Rectal contents / Unknown 10/16/2024 10:15 AM EDT 10/16/2024 2:24 PM EDT Otilia Quiñones MD LAB BODY FLUIDS AND STOOLS OR DERABLES Final Result [facility] [address] [place] [phone] * Chlamydia/N. Gonorrhoeae RNA, TMA, Urogenitial (10/15/2024 1:39 PM EDT) CT PCR NOT DETECTED Not Detect. [facility] Comment:A not detected test result [...] psychologicalconsequences. NG PCR NOT DETECTED Not Detect. [facility] Comment:A not detected test result [...] PM EDT 10/15/2024 2:25 PM EDT Narrative [facility] - 10/15/2024 4:39 PM EDT Urine us Otilia Quiñones MD LAB MICROBIOLOGY - GENERAL OR DERABLES Final Result [facility] [address] [place] [phone] * Lipase (10/15/2024 1:34 PM EDT) Lipase 34 8 - 78 U/L [facility] Blood Venous blood specimen / Unknown 10/15/2024 1:34 PM EDT 10/15/2024 2:19 PM EDT Otilia Quiñones MD LAB BLOOD ORDERABLES Final Re sult [facility] [address] [place] [phone] [phone] * HIV-1/2 Antigen and Antibodies, Fourth Generation, with Reflexes (10/15/2024 1:34 PM EDT) HIV AB/AG Nonreactive Nonreactive [facility] Comment:HIV-1 p24 Ag and/or HIV-1/HIV-2 Ab not detected.A test result that is nonreactive does not exclude thepossibility of exposure to or infection with HIV-1 and/orHIV-2. Nonreactive results in this assay for individualswith prior exposure to HIV-1 and/or HIV-2 may be due toantigen and antibody levels that are below the limit ofdetection of this assay.The [employer] HIV Ag/Ab Combo assay result andsupplemental assay results should be interpreted inconjunction with the patient's clinical presentation,history and other laboratory results. If the results areinconsistent with clinical evidence, additional testing issuggested to confirm the result. Blood Venous blood specimen / Unknown 10/15/2024 1:34 PM EDT 10/15/2024 2:19 PM EDT Otilia Quiñones MD LAB BLOOD ORDERABLES Final Re sult Performing Organization Address City/[facility]/ZIP Co de Phone Number [facility] [address] [place] [address] [phone] * Hepatitis C Antibody with Reflex to HCV, RNA, Quantitative, Real-Time PCR (10/15/2024 1:34 PM EDT) Hepatitis C Antibody Nonreactive Nonreactive [facility] Comment:Antibodies to HCV no t detected; does not exclude early acuteHCV infection. Blood Venous blood specimen / Unknown 10/15/2024 1:34 PM EDT 10/15/2024 2:19 PM EDT us Otilia Quiñones MD LAB BLOOD ORDERABLES Final Re sult [facility] [address] [place] [phone] * (ABNORMAL) Comprehensive Metabolic Panel (10/15/2024 1:34 PM EDT) Sodium 140 135 - 145 mmol/L [facility] Potassium 3.4 3.3 - 5.1 mmol/L [facility] Chloride 105 96 - 108 mmol/L [facility] Carbon Dioxide 27 22 - 29 mmol/L [facility] Anion Gap 11(L) 12 - 20 [facility] Urea Nitrogen (BUN) 10 9 - 16 mg/dL [facility] Creatinine, Serum 0.67 0.5 - 1.4 mg/dL [facility] Estimated Glomerular Filt Rate >60 [facility] Comment:Chronic Kidney Disea se: Estimated GFR < 60 mL/min/1.34b8Fvqcmc Kidney Disease: Estimated GFR < 15 mL/min/1.73m2 Glucose 97 60 - 115 mg/dL [facility] Calcium 8.7 8.4 - 10.2 mg/dL [facility] Bilirubin, Total 0.4 0.0 - 1.0 mg/dL [facility] Aspartate Amino Transferase 20 5 - 31 U/L [facility] Alanine Aminotransferase 18 0 - 31 U/L [facility] Total Protein 6.8 6.5 - 8.0 g/dL [facility] Albumin Level 3.9 3.5 - 5.0 g/dL [facility] Alkaline Phosphatase 78 39 - 117 U/L [facility] Blood Venous blood specimen / Unknown 10/15/2024 1:34 PM EDT 10/15/2024 2:19 PM EDT us Otilia Quiñones MD LAB BLOOD ORDERABLES Final Re sult [facility] [address] [place], [place] [phone] * (ABNORMAL) CBC auto differential (10/15/2024 1:34 PM EDT) White Blood Count 6.2 4.8 - 10.8 X10*3/uL [facility] Red Blood Count 4.66 4.20 - 5.50 X10*6/uL [facility] Hemoglobin 10.9(L) 12.0 - 16.0 g/dl [facility] Hematocrit 35.0(L) 37.0 - 47.0 % [facility] Mean Corpuscular Volume 75.1(L) 80.0 - 98.0 fL [facility] Mean Corpuscular Hemoglobin 23.4(L) 27.0 - 33.0 pg [facility] Mean Corpuscular HGB Conc 31.1 31.0 - 35.0 g/dl [facility] Red Cell Distribution Width 14.8 11.0 - 16.0 % [facility] Platelet Count 276 160 - 400 X10*3/uL [facility] Mean Platelet Volume 12.0 9.4 - 12.3 fL [facility] Neutrophils Percent Auto 66.2 45 - 73 % [facility] Imm Gran Pct Auto 0.3 0.0 - 0.4 % [facility] Lymphocytes Percent Auto 25.0 20 - 40 % [facility] Monocytes Percent Auto 5.5 2 - 11 % [facility] Eosinophils Percent Auto 2.4 0 - 4 % [facility] Basophils Percent Auto 0.6 0 - 2 % [facility] NRBC Pct Auto 0.0 0.0 - 0.2 /100WBC [facility] Neutrophils Absolute Auto 4.1 2.0 - 8.3 x10*3/uL [facility] Imm Gran Abs Auto 0.02 0.00 - 0.03 X10*3/uL [facility] Lymphocytes Absolute Auto 1.5 1.2 - 4.9 X10*3/uL [facility] Monocytes Absolute Auto 0.3 0.1 - 1.2 X10*3/uL [facility] Eosinophils Absolute Auto 0.2 0.0 - 0.4 X10*3/uL [facility] Basophils Absolute Auto 0.0 0.0 - 0.2 X10*3/uL [facility] NRBC Abs Auto 0.000 0.0 - 0.012 X10*3/uL [facility] Blood Venous blood specimen / Unknown 10/15/2024 1:34 PM EDT 10/15/2024 2:19 PM EDT us Otilia Quiñones MD LAB BLOOD ORDERABLES Final Re sult [facility] [address] [place] [phone] documented in this encounter Visit Diagnoses Diagnosis Dermatitis- Primary Contact dermatitis and other eczema, due to unspecified cause Generalized abdominal pain Abdominal pain, generalized Symptomatic varicose veins of both lower extremities documented in this encounter Additional Health Concerns Assessment Noted Time PHQ-9 Depression Total Score: 0 07/03/19 24 10:45 AM EST documented as of this encounter Care Teams Flight Operations Manager Relationship Specialty Start Date End Date Otilia Quiñones MD [address] [place] [phone] PCP - General Family Medicine 09/15/13 documented as of this encounter
--- OUTSIDE RECORDS SUMMARY | 2024-10-20 12:20 | XMS_ITS | Encounter Summary ---
Author Organization [employer] Address [address] [place] [address] [address] [place] [address] Care Team Providers Care Guide Alpine Name Role Phone Otilia Quiñones MD Primary Care Provider [phone] Reason for Visit * Reason Comments Med Refill Encounter Details Date Type Department Care Team ([facility] st Contact Info) Description 11/22/2023 Refill [facility] CHC MED & PEDS [address] [place], [place] [phone] Otilia Quiñones MD [address] [place], [place] [phone] Social History Tobacco Use Types Packs/Day Years [...] 11:00 AM EDT Office Visit [facility] ADULT DENTAL [address] [place] [address] Yoshi Sandoval, JUDI [address] [place] [address] 12/10/2024 11:00 AM EDT Office Visit [facility] MED [facility]EDS [address] [place] [address] Otilia Quiñones MD [address] [place] [address] documented as of this encounter Visit Diagnoses Not on filedocumented in this encounter Additional Health Concerns Assessment Noted Time PHQ-9 Depression Total Score: 0 07/03/19 24 10:45 AM EST documented as of this encounter Care Teams Guide Alpine Relationship Specialty Start Date End Date Otilia Quiñones MD [address] [place] [address] PCP - General Family Medicine 09/15/13 documented as of this encounter
--- OUTSIDE RECORDS SUMMARY | 2024-10-20 12:20 | XMS_ITS | Encounter Summary ---
Author Organization [employer] Address [address] [facility] [address] [place] [address] Care Team Providers Care Commercial Drafter Name Role Phone Otilia Quiñones MD Primary Care Provider [phone] Encounter Details Date Type Department Care Team (Late st Contact Info) Description 03/28/2023 Abstract [facility] MEDICINE [address] [place] [address] Otilia Quiñones MD [address] [place], [place] [phone] Social History Tobacco Use Types Packs/Day Years [...] 11:00 AM EDT Office Visit [facility] ADULT DENTAL [address] [place] [address] Yoshi aSndoval, DMD [address] [place] [address] 12/10/2024 11:00 AM EDT Office Visit [facility] MED & PEDS [address] [place] [address] Otilia Quiñones MD [address] [place] [address] documented as of this encounter Visit Diagnoses Not on filedocumented in this encounter Care Teams Commercial Drafter Relationship Specialty Start Date End Date Otilia Quiñones MD [address] [place] [address] PCP - General Family Medicine 09/15/13 documented as of this encounter
== END 2024-10-20 11:44 | disposition home or self-care (01) ==
LOC: HO.HVS 11:02
PROVIDERS: PCP Pediatrics; Visit Provider Physician Assistant Surgical
DX: I83.12 Varicose veins of left lower extremity with inflammation (principal)
CPT/HCPCS: 99214

== ENCOUNTER → 2024-10-20 11:01 | Outpatient (BNVA) | payer MEDICAID, SELFPAY | PROVIDERS: PCP Pediatrics; Visit Provider Physician Assistant Surgical | DX: I83.12 Varicose veins of left lower extremity with inflammation (principal) | CPT/HCPCS: 99212 ==

== ENCOUNTER 2024-11-02 11:24 | Outpatient (REF) | payer MEDICAID, SELFPAY ==
--- OUTSIDE RECORDS SUMMARY | 2024-11-02 12:42 | XMS_ITS | Encounter Summary ---
Author Organization [employer] Address [address] [facility] [address]t [place] [address] Care Team Providers Care Maintenance Journeyman Name Role Phone Otilia Quiñones MD Primary Care Provider [phone] Encounter Details Date Type Department Care Team (Late st Contact Info) Description 03/28/2023 Abstract [facility] MEDICINE [address] [place] [address] Otilia Quiñones MD [address] [place], [place] [phone] Social History Tobacco Use Types Packs/Day Years [...] 11:00 AM EDT Office Visit [facility] ADULT DENTAL [address] [place] [address] Yoshi Sandoval, DMD [address] [place] [address] 12/10/2024 11:00 AM EDT Office Visit [facility] MED & PEDS [address] [place] [address] Otilia Quiñones MD [address] [place] [address] documented as of this encounter Visit Diagnoses Not on filedocumented in this encounter Care Teams Maintenance Journeyman Relationship Specialty Start Date End Date Otilia Quiñones MD [address] [place] [address] PCP - General Family Medicine 09/15/13 documented as of this encounter
[2024-11-02 13:02] LABS: MANUAL DIFF FLAG NO
[2024-11-02 13:24] LABS: Basophils Percent Auto 0.7 % (0-2); Eosinophils Absolute Auto 0.1 X10*3/uL (0.0-0.4); Eosinophils Percent Auto 1.4 % (0-4); Hematocrit 38.7 % (37.0-47.0); Hemoglobin 12.2 g/dl (12.0-16.0); Imm Gran Abs Auto 0.01 X10*3/uL (0.00-0.03); Imm Gran Pct Auto 0.2 % (0.0-0.4); Lymphocytes Absolute Auto 1.2 X10*3/uL (1.2-4.9); Lymphocytes Percent Auto 21.4 % (20-40); Mean Corpuscular HGB Conc 31.5 g/dl (31.0-35.0); Mean Corpuscular Hemoglobin 23.2 pg (27.0-33.0); Mean Corpuscular Volume 73.7 fL (80.0-98.0); Mean Platelet Volume 12.6 fL (9.4-12.3); Monocytes Absolute Auto 0.7 X10*3/uL (0.1-1.2); Monocytes Percent Auto 11.5 % (2-11); Neutrophils Absolute Auto 3.7 x10*3/uL (2.0-8.3); Neutrophils Percent Auto 64.8 % (45-73); Platelet Count 199 X10*3/uL (160-400); Red Blood Count 5.25 X10*6/uL (4.20-5.50); White Blood Count 5.7 X10*3/uL (4.8-10.8)
[2024-11-02 13:32] LABS: Anion Gap 14 (12-20); Blood Urea Nitrogen 8 mg/dL (9-16); Calcium 9.2 mg/dL (8.4-10.2); Carbon Dioxide 26 mmol/L (22-29); Chloride 105 mmol/L (96-108); Estimated Glomerular Filt Rate > 60; Glucose Random 89 mg/dL (60-115); Potassium 3.5 mmol/L (3.3-5.1); Sodium 141 mmol/L (135-145)
[2024-11-03 03:38] LABS: IgA 370 mg/dL (47-310); IgG 1462 mg/dL (600-1640); IgM 96 mg/dL (50-300)
== END 2024-11-02 11:25 | disposition home or self-care (01) ==
LOC: HO.HHCL 11:24
PROVIDERS: Visit Provider Internal Medicine
DX: J02.9 Acute pharyngitis, unspecified (principal)
CPT/HCPCS: 36415; 80048; 82784; 85025; 87070

== ENCOUNTER 2024-11-03 13:27 | Outpatient (REF) | payer MEDICAID, SELFPAY ==
--- OUTSIDE RECORDS SUMMARY | 2024-11-03 15:04 | XMS_ITS | Encounter Summary ---
Author Organization [employer] Address [address] [facility] [address] [place] [address] Care Team Providers Care Wireless Communications Engineer Name Role Phone Otilia Quiñones MD Primary Care Provider [phone] Encounter Details Date Type Department Care Team (Late st Contact Info) Description 03/28/2023 Abstract [facility] MEDICINE [address] [place] [address] Otilia Quiñones MD [address] [facility] [address] [place], [place] [phone] Social History Tobacco Use Types Packs/Day Years [...] Description 11/05/2024 11:00 AM EDT Office Visit [facility] ADULT DENTAL [address] [place] [address] Yoshi Sandoval, DMD [address] [place] [address] 12/10/2024 11:00 AM EDT Office Visit [facility] MED & PEDS [address] [place] [address] Otilia Quiñones MD [address] [place] [address] documented as of this encounter Visit Diagnoses Not on filedocumented in this encounter Care Teams Wireless Communications Engineer Relationship Specialty Start Date End Date Otilia Quiñones MD [address] [place] [address] PCP - General Family Medicine 09/15/13 documented as of this encounter
[2024-11-03 15:43] LABS: Iron 17 mcg/dL (30-160); Percent Iron Saturation 6 % (15-50); Total Iron Binding Capacity 268 mcg/dL (228-428); Unsaturated Iron Binding 251 ug/dL
[2024-11-03 15:54] LABS: Ferritin 18 ng/mL (10-250)
== END 2024-11-03 13:28 | disposition home or self-care (01) ==
LOC: HO.CHCLDS 13:27
PROVIDERS: Visit Provider Internal Medicine
DX: R71.8 Other abnormality of red blood cells (principal)
CPT/HCPCS: 36415; 82728; 83540

== ENCOUNTER 2024-11-06 12:52 | Emergency (ER) | payer MEDICAID, SELFPAY ==
[2024-11-06 12:54] VITALS: BP 119/73; PULSE 85; RESP 18; TEMP 36.3; O2SAT 100; BMI 27.6
--- NOTE | 2024-11-06 12:56 | ED.GENADULT ---
HPI - General Adult General Chief complaint: Allergic Reaction Stated complaint: Throat Closing Allergic Rx Related Data Home Medications ?Medication ?Instructions ?Recorded ?Confirmed clonazepam 0.5 mg tablet 0.5 mg PO DAILY PRN anxiety attack 02/09/21 03/01/23 Previous Rx's ?Medication ?Instructions ?Recorded omeprazole 40 mg capsule,delayed 40 mg PO DAILY #20 caps 04/24/24 release ondansetron 4 mg disintegrating 4 mg PO Q6-8H PRN nausea and 04/24/24 tablet vomiting #7 tabs Allergies Allergy/AdvReac Type Severity Reaction Status Date / Time No Known Allergies Allergy Verified 11/06/24 12:56 [No Known Allergies*] [facility] Past Medical History Medical History Prolapsed hemorrhoids Bleeding hemorrhoids Smoker Anxiety Surgical History History of tubal ligation H/O section Family History Family History Maternal Grandmother Breast cancer Social History Social History Substance Use Type: Marijuana Advance Directives: No Advance Directives Information Provided: Yes Do you have a plan to hurt others: No Plan Physical Exam ED Vital Signs: Vital Signs - 24 hr 11/06/24 12:54 Temperature 97.4 F Pulse Rate 85 Respiratory Rate 18 Blood Pressure 119/73 Pulse Oximetry 100 Oxygen Delivery Method Room Air BMI result Body Mass Index 27.6 Course Course Course Narrative: 11/06/24 1257 SLIM Moore This is a Rapid Medical Examination (RME) performed by Kelly Lorenzo PA-C in triage. Full HPI, ROS, assessment and treatment plan per primary provider in the Main ED. Hx: 49 yo F here for eval of throat discomfort, SOB, and tongue heaviness which began around 1200 today. reports recently testing positive for strep throat, currently on treatment, has been feeling well. started on iron pills today for anemia, took this pill around 0800 today, felt well until 1200 when she felt her throat was closing, began to feel sob with assoc heavy tongue . no known allergies. PE/vitals: vitals stable, airway patent 100% on RA, posterior oropharynx wnl. normal speech, no tongue deviation, NIH 0. Plan: basic labs Reevaluation(s) Reevaluation #1: Patient left the emergency department before myself or any of the other clinicians could review or explain physical exam findings, test results, need or lack there of for additional testing, treatment options, or a treatment plan. Discharge Plan Discharge Clinical Impression: SOB (shortness of breath) Patient Disposition: Left W/O Completing Treatment Prescriptions: No Action omeprazole 40 mg capsule,delayed release(DR/EC) 40 mg PO DAILY Qty: 20 0RF ondansetron 4 mg tablet,disintegrating 4 mg PO Q6-8H PRN (Reason: nausea and vomiting) Qty: 7 0RF clonazepam 0.5 mg tablet 0.5 mg PO DAILY PRN (Reason: anxiety attack) Discharge Date/Time: 11/06/24 14:42
== END 2024-11-06 14:42 | disposition left against medical advice (07) ==
PROVIDERS: Emergency Provider Emergency Medicine; PCP Pediatrics
DX: R06.02 Shortness of breath (principal)
CPT/HCPCS: 99281

== ENCOUNTER 2024-11-12 10:15 | Outpatient (REF) | payer MEDICAID, SELFPAY ==
--- NOTE | ~2024-11-12 | CT_ITS ---
EXAMINATION: CT ABDOMEN AND PELVIS WITH CONTRAST CLINICAL INFORMATION: Chronic abdominal pain, hematochezia COMPARISON: March 08, 2013 TECHNIQUE: Multidetector volumetric images were obtained from the superior aspect of the liver through the pubic symphysis following administration 85 mL of Omnipaque 350 intravenous contrast. Sagittal and coronal reformatted images were obtained on the technologist's workstation. Oral contrast: Present This CT examination was performed using dose optimization techniques as appropriate, variously including the following: *Automated exposure control *Adjustment of mA and/or kV according to patient size (this includes techniques or standardized protocols for targeted exams where dose is matched to indication/reason for exam; i.e. extremities or head) *Use of iterative reconstruction technique DLP: 441 mGY*cm FINDINGS: LUNG BASES: Stable 3 mm solid pulmonary nodule in the lateral segment right middle lobe is benign. LIVER, GALLBLADDER, AND BILIARY TREE: The liver is normal in size, shape, and attenuation. No focal hepatic lesion or biliary ductal dilatation is present. The gallbladder is unremarkable with no evidence of radiopaque gallstones, gallbladder wall thickening, or obvious pericholecystic inflammatory changes. PANCREAS: Unremarkable. SPLEEN: Unremarkable. ADRENAL GLANDS: Unremarkable. KIDNEYS AND URETERS: The kidneys are normal in size, shape, and attenuation. No hydronephrosis, hydroureter, or calculi seen. No perinephric stranding. BLADDER: Unremarkable. GASTROINTESTINAL TRACT: The small and large bowel are unremarkable. The appendix is unremarkable. ABDOMINAL WALL: No significant hernia is appreciated. LYMPH NODES: No adenopathy. VASCULAR: Unremarkable. PELVIC VISCERA: Unremarkable. Incidentally, there is a 2.6 cm simple cyst/follicle in the right ovary. OSSEOUS STRUCTURES: The left L5 transverse process pseudoarticulation with the upper sacrum. CT/CT abdomen pelvis w IV con IMPRESSION: Unremarkable abdomen and pelvis. Benign right middle lobe pulmonary nodule. Sacralized L5 left transverse process. Fleischner guidelines were followed. Electronically signed by: Kevin Rivera MD 11/12/2024 12:44 PM EDT
--- OUTSIDE RECORDS SUMMARY | 2024-11-12 11:50 | XMS_ITS | Encounter Summary ---
Author Organization [employer] Address [address] [facility] [address] [place] [address] Care Team Providers Care Oil Rig Roughneck Name Role Phone Otilia Quiñones MD Primary Care Provider [phone] Encounter Details Date Type Department Care Team (Late st Contact Info) Description 03/28/2023 Abstract [facility] MEDICINE [address] [place] [address] Otilia Quiñones MD [address] [facility] [address] [place], [place] [phone] Social History Tobacco Use Types Packs/Day Years [...] Upcoming Encounters Date Type Department Care Team ([facility] st Contact Info) Description 12/10/2024 11:00 AM EDT Office Visit [facility] MED & PEDS [address] [place] [address] Otilia Quiñones MD [address] [place] [address] documented as of this encounter Visit Diagnoses Not on filedocumented in this encounter Care Teams Oil Rig Roughneck Relationship Specialty Start Date End Date Otilia Quiñones MD [address] [place] [address] PCP - General Family Medicine 09/15/13 documented as of this encounter
[2024-11-12] MEDS: iohexoL 350 MG/ML 100 ML INFUS..BTL IV (12:17)
== END 2024-11-12 10:16 | disposition home or self-care (01) ==
LOC: HO.CT 10:15
PROVIDERS: PCP Pediatrics; Visit Provider Pediatrics
DX: R10.84 Generalized abdominal pain (principal)
CPT/HCPCS: 74177; Q9967

== ENCOUNTER → 2024-11-12 10:17 | Outpatient (BNV) | payer MEDICAID, SELFPAY | PROVIDERS: PCP Pediatrics; Visit Provider Radiology Diagnostic Radiology | DX: R91.1 Solitary pulmonary nodule (principal) | CPT/HCPCS: 74177 ==

== ENCOUNTER 2024-11-16 13:16 | Outpatient (AMB) | payer MEDICAID, SELFPAY ==
--- NOTE | 2024-11-16 14:15 | MHC.OFFVIS ---
Intake Visit Reasons: C Reff/Recurrent Strep throat Allergies No Known Allergies [No Known Allergies*] Allergy (Verified 11/06/24 12:56) Medication List - Last Reconciled 11/16/24 by Yolie Paris RN clonidine HCl 0.2 mg PO BEDTIME omeprazole 40 mg PO DAILY ondansetron 4 mg PO Q6-8H PRN HPI HPI [facility] Reff/Recurrent Strep throat: Details: She is referred from Dr Whittaker at [facility]. She reports for 2 years throat and neck discomfort. She has no fever or chills at this time. She has swelling in mouth intermittently. She has shortness of breath as well. She has has negative HIV test. She has had helicobacter positive and been on metronidazole and omeprazole. She has had positive strep antigen on 11/02 but negative 11/02 strep culture. [facility] Medical History (Updated 11/16/24 @ 14:19 by Santa Graf MD) Throat pain Prolapsed hemorrhoids Bleeding hemorrhoids Smoker Anxiety Surgical History History of tubal ligation H/O section Family History Maternal Grandmother Breast cancer Social History Substance Use Type: Marijuana Female Reproductive History Menstrual Age of Menarche: 14 Review of Systems Const All systems reviewed & are unremarkable except as noted in HPI and below Physical Exam Const General: cooperative Orientation/consciousness: patient oriented x3 HEENT Head: Yes normal to inspection Mouth: Normal oral and palatal mucosa present Eyes General: appearance normal, both eyes and all related structures Pupils: Equal, round and reactive pupils present Resp Effort & Inspection: normal respiratory effort Cardio Rate: regular rate Rhythm: regular rhythm GI Palpation (GI): Soft to palpation and nontender General: Yes no CVA tenderness Back/Spine/Pelvis Back: no CVA tenderness Skin General skin exam: no rashes or lesions noted Neuro General: patient oriented x3 Cranial nerves: Yes CN's II-XII intact bilaterally and Yes Equal, round and reactive pupils present Extrem General: Yes normal to inspection Psych Appearance: grossly normal Assessment & Plan Assessment & Plan (1) Throat pain: Comment: I do not think this is due to strep Code(s): R07.0 - Pain in throat Category: Medical Plan: Check for Sjogrens syndrome,IgG4,throat dyfunction,allergies to food and/or med,no signs of thrush or chronic strep,culture neg and systemic symptoms like dry eye. There is sometimes throat swelling. Plan Check Sjogrens syndrome and IgG 4. Check CT neck and chest evaluate nodules. Check PFTs evaluate laryngeal dysfunction. Check ENT endoscopy prior smoker. Consider Allergy evaluation and Rheumatology if all else negative evaluate for Sjogrens. Coding Level of Care Code New Pt Level 4 (36941) Diagnoses Throat pain R07.0
--- OUTSIDE RECORDS SUMMARY | 2024-11-16 14:46 | XMS_ITS | Encounter Summary ---
Author Organization [employer] Address [address] [place] [address] Care Team Providers Care Fountain Pen Turner Name Role Phone Otilia Quiñones MD Primary Care Provider [phone] Encounter Details Date Type Department Care Team (Late st Contact Info) Description 03/28/2023 Abstract [facility] MEDICINE [address] [place] [address] Otilia Quiñones MD [address] [place], [place] [phone] Social History Tobacco Use Types Packs/Day Years [...] Upcoming Encounters Date Type Department Care Team ([facility] st Contact Info) Description 12/10/2024 11:00 AM EDT Office Visit [facility] [address] [place] [address] Otilia Quiñones MD [address] [place] [address] documented as of this encounter Visit Diagnoses Not on filedocumented in this encounter Care Teams Fountain Pen Turner Relationship Specialty Start Date End Date Otilia Quiñones MD [address] [place] [address] PCP - General Family Medicine 09/15/13 documented as of this encounter
== END 2024-11-16 14:15 | disposition home or self-care (01) ==
LOC: HO.HID 13:17
PROVIDERS: PCP Pediatrics; Visit Provider Internal Medicine
DX: R07.0 Pain in throat (principal)
CPT/HCPCS: 99204

== ENCOUNTER → 2024-11-16 13:16 | Outpatient (BNVA) | payer MEDICAID, SELFPAY | PROVIDERS: PCP Pediatrics; Visit Provider Internal Medicine | DX: R07.0 Pain in throat (principal); M54.2 Cervicalgia; R06.02 Shortness of breath | CPT/HCPCS: 99202 ==

== ENCOUNTER 2024-12-10 11:21 | Outpatient (REF) | payer MEDICAID, SELFPAY ==
--- OUTSIDE RECORDS SUMMARY | 2024-12-10 12:03 | XMS_ITS | Encounter Summary ---
Author Organization [employer] Address [address] [facility] [place] [address] Care Team Providers Care School Bus Driver/Custodian Name Role Phone Otilia Quiñones MD Primary Care Provider [phone] Encounter Details Date Type Department Care Team (Late st Contact Info) Description 03/28/2023 Abstract [facility] MEDICINE [address] [place] [address] Otilia Quiñones MD [address] [place], [place] [phone] Social History Tobacco Use Types Packs/Day Years [...] as of this encounter Plan of Treatment Not on file documented as of this encounter Visit Diagnoses Not on filedocumented in this encounter Care Teams School Bus Driver/Custodian Relationship Specialty Start Date End Date Otilia Quiñones MD [address] [place] [address] PCP - General Family Medicine 09/15/13 documented as of this encounter
[2024-12-10 16:32] LABS: Ferritin 45 ng/mL (10-250)
[2024-12-19 08:09] LABS: Anti Nuclear Antibody Screen POSITIVE (NEGATIVE); Anti Nuclear Antibody Titer 1:80 titer
== END 2024-12-10 11:22 | disposition home or self-care (01) ==
LOC: HO.CHCLDS 11:21
PROVIDERS: Visit Provider Pediatrics
DX: A04.8 Other specified bacterial intestinal infections (principal); D50.9 Iron deficiency anemia, unspecified
CPT/HCPCS: 36415; 82728; 85652; 86038; 86039; 86431

== ENCOUNTER 2025-02-10 12:46 | Outpatient (REF) | payer MEDICAID, SELFPAY ==
--- OUTSIDE RECORDS SUMMARY | 2025-02-03 09:30 | XMS_ITS | Encounter Summary ---
Author Organization [employer] Address [address] [place] [address] Care Team Providers Care Wafer Substrate Tester Name Role Phone Otilia Quiñones MD Primary Care Provider [phone] Reason for Visit * Reason Comments Casar Patient presents tod ay for core build up and crown prep Emilie BARNES Encounter Details Date Type Department Care Team ([facility] st Contact Info) Description 02/03/2025 9:30 AM EDT Office Visit [facility] [address] [place], [place] [phone] Yoshi Sandoval, DMD [address] [place], [place] [phone] Partial edentulism, unspecified edentulism class (Primary Dx) Social History Tobacco Use Types Packs/Day Years [...] Reading Time Taken Comments Blood Pressure 122/76 02/03/2025 9:35 AM EDT Pulse - - Temperature - - Respiratory Rate - - Oxygen Saturation - - Inhaled Oxygen Concentration - - Weight - - Height - - Body Mass Index - - documented in this encounter Progress Notes * Yoshi Sandoval DMD - 02/03/2025 9:30 AM EDT Patient ID: Geovanna Hobbs is a 49 y.o. female. Time Out: Timeout Date: 02/03/25, Timeout Time: 09 (Core build and crown prep #12,14) Location: [facility] Tooth: #14; all Procedure: Exam and Casar Verified the above with patient, retail loan originator assistant, and provider. Confirmed via patient's chart, intraorally and by radiographs. Garage Attendant: not applicable Chief Complaint Patient presents with Casar Patient presents today for core build up and crown prep Emilie CAMERON Medical Hx: Vitals: Blood pressure 122/76. Medications, Med Hx reviewed with patient and updated in chart. Consent Obtained: The risks, benefits, indications, potential complications, and alternatives were explained to the patient and informed consent was obtained with good understanding. Treatment Provided: Dental procedures in this visit D2700.1 - CROWN PREP 14 (Completed) Service provider: Yoshi Sandoval DMD Billing provider: Yoshi Sandoval DMD [id number] - PERIODIC ORAL EVALUATION - ESTABLISHED PATIENT (Completed) Service provider: Yoshi Sandoval DMD Billing provider: Yoshi Sandoval DMD [id number] - CASE PRESENTATION, DETAILED AND EXTENSIVE TREATMENT PLANNING (Completed) Service provider: Yoshi Sandoval DMD Billing provider: Yoshi Sandoval DMD Topical: 20% Benzocaine Anesthesia: 4% Septocaine (Articaine) w/ 1:200,000 epinephrine Number of Cartridges: 1 Injection Type: Buccal infiltration and Palatal infiltration Confirmed profound anesthesia. Isolation: cotton rolls and high speed suction Prepared tooth for: Ceramic crown Upon prepping of #14, note 5-6 mm of space between #12 and #14 Discussed possible implant here instead of 3 unit bridge Pt's original goal was implant, and is interested in posterior rehabilitation Exam completed: #2 - existing O amalgam with recurrent decay, in contact with #32. Advise EXT #3 - supraerupted, large existing MOBL amalgam with recurrent decay, advise core BU and crown #12 - pt unhappy with shade of existing crown. Too light. #4 matches better #13 - edentulous space #10 and #11 previously planned for direct restos #14 - full coverage crown indicated - large OL amalgam with ML decay, greater than 2/3 occlusal table lost to caries and restorative material - note mesially tipped and in contact with #18 on distal marginal ridge. Consulted with Dr. Ng who suggested referred pain to area of #15/16 from off axis occlusion - temp crown left out of occlusion #17 - nonfunctional, recurrent decay, advise EXT #18 - mesially tipped, large O amalgam with recurrent decay, B decay, full coverage crown indicated. RCT/core may be needed depending on how much tooth structure is lost on mesial to upright tooth #19 - edentulous space #30, 31 - edentulous space #32 - only in contact with #2, mobile grade 1+, recurrent decay. Advise EXT Discussed findings with patient and treatment recommendations including: Direct restorations: #10,11,21,29 Full coverage crowns: #3,12,14,18 Single implant and crowns: #13,19,30,31 EXTs: #2,17,32 Pt expressed understanding and would like to proceed with plan. Rough estimate of finances reviewedand pt aware that implants are out of pocket expense. Pt also made aware of possible out of pocket expense for crowns. Pt examined by Dr. Ng: Recommends 4.3 x 10 and 4.3 x 13 (length to be determined at time of surgery) Sequence: Prophy Direct resin restorations Restore UL Implant #13 and wait approx 3 months for healing Remove #12 crown, modify prep #14. Impression for #12,13,14 and send to lab to be fabricated together Deliver #12, 14 crowns and #13 implant crown R side #3 core BU and crown Implants #30,31. Bone graft and wait 6 months healing EXT #2,32 Impression after 3-4 wks Deliver #30,31 implant crowns LL EXT #17 #18 prep/temp. RCT if needed Implant #19 placement Impression for #18 and #19 crowns Deliver #18,19 crown Occlusal Guard Pt expressed understanding and agreement with plan. All questions answered. #14 Provisional fabricated with: Paradigm Temp Material and cemented with: TempBond Alginate impressions taken for study models and photos taken and uploaded to chart. POI given to patient with instructions for homecare, to avoid sticky or crunchy foods, and to call if temp crown becomes dislodged. All questions answered. Patient tolerated procedure well, and was discharged alert, oriented, and in stable condition. NV: #29 landon Executive Meeting Manager: Emilie Rodriguez Dentist: Yoshi Sandoval DMD documented in this encounter Plan of Treatment Upcoming Encounters Date Type Department Care Team (Late st Contact Info) Description 02/17/2025 10:30 AM EDT Office Visit [facility] [address] [place], [place] [phone] Yoshi Sandoval DMD [address] [place] [address] 03/24/2025 11:00 AM EDT Office Visit [facility] [address] [place], [place] [phone] Xavier Ng DMD [address] [place] [phone] Scheduled Orders Name Type Priority Associated Diagnoses Orde r Schedule 13 13 SURGICAL PLACEMENT OF IMPLANT BODY - ENDOSTEAL IMPLANT Dental Routine 1 Occurrences starting 02/03/2025 13 13 CUSTOM FABRICATED ABUTMENT - INCLUDES PLACEMENT Dental Routine [address] arting 02/03/2025 14 14 CROWN - PORCELAIN/CERAMIC Dental Routine 1 Occurrences starting 02/03/2025 12 12 CROWN - PORCELAIN/CERAMIC Dental Routine 1 Occurrences starting 02/03/2025 18 18 CROWN - PORCELAIN/CERAMIC Dental Routine 1 Occurrences starting 02/03/2025 31 31 SURGICAL PLACEMENT OF IMPLANT BODY - ENDOSTEAL IMPLANT Dental Routine 1 Occurrences starting 02/03/2025 30 30 SURGICAL PLACEMENT OF IMPLANT BODY - ENDOSTEAL IMPLANT Dental Routine 1 Occurrences starting 02/03/2025 31 31 CUSTOM FABRICATED ABUTMENT - INCLUDES PLACEMENT Dental Routine [address] arting 02/03/2025 30 30 CUSTOM FABRICATED ABUTMENT - INCLUDES PLACEMENT Dental Routine [address] arting 02/03/2025 19 19 SURGICAL PLACEMENT OF IMPLANT BODY - ENDOSTEAL IMPLANT Dental Routine 1 Occurrences starting 02/03/2025 19 19 CUSTOM FABRICATED ABUTMENT - INCLUDES PLACEMENT Dental Routine [address] arting 02/03/2025 19 19 IMPLANT SUPPORTED PORCELAIN/CERAMIC CROWN Dental Routine 1 Occurr ences starting 02/03/2025 17 17 EXTRACTION, ERUPTED TOOTH OR EXPOSED ROOT (ELEVATION/FORCEPS REMOVAL) Dental Routine [address] arting 02/03/2025 32 32 EXTRACTION, ERUPTED TOOTH OR EXPOSED ROOT (ELEVATION/FORCEPS REMOVAL) Dental Routine [address] arting 02/03/2025 2 2 EXTRACTION, ERUPTED TOOTH OR EXPOSED ROOT (ELEVATION/FORCEPS REMOVAL) [facility] [address] [facility] 02/03/2025 3 3 CROWN PREP Dental Routine 1 Occurren wai starting 02/03/2025 3 3 CORE BUILDUP, INCL ANY PINS WHEN REQ Dental Routine 1 Occurrences starting 02/03/2025 3 3 CROWN - PORCELAIN/CERAMIC Dental Routine 1 Occurrences starting 02/03/2025 12,14 12,14 CROWN PREP Dental Routine 1 Occurrences starting 02/03/2025 18 18 CROWN PREP Dental Routine 1 Occurr ences starting 02/03/2025 18 18 CORE BUILDUP, INCL ANY PINS WHEN REQ Dental Routine 1 Occurrences starting 02/03/2025 18 18 ENDODONTIC THERAPY, MOLAR TOOTH Dental Routine 1 Occurrenc es starting 02/03/2025 30 30 BONE GRAFT AT TIME OF IMPLANT PLACEMENT Dental Routine 1 Occurrenc es starting 02/03/2025 13 13 ABUTMENT SUPPORTED PORCELAIN/CERAMIC CROWN Dental Routine 1 Occurr ences starting 02/04/2025 31 31 ABUTMENT SUPPORTED PORCELAIN/CERAMIC CROWN Dental Routine 1 Occurr ences starting 02/04/2025 30 30 ABUTMENT SUPPORTED PORCELAIN/CERAMIC CROWN Dental Routine 1 Occurr ences starting 02/04/2025 documented as of this encounter Procedures Procedure Name Priority Date/Time Associated Diagnosis Comments 14 CROWN PREP Routine 02/03/2025 9:30 AM EDT Partial edentulism, unspecified edentulism class PERIODIC ORAL EVALUATION - ESTABLISHED PATIENT Routine 02/03/2025 9:30 AM EDT Partial edentulism, unspecified edentulism class CASE PRESENTATION, DETAILED AND EXTENSIVE TREATMENT PLANNING Routine 02/03/2025 9:30 AM EDT Partial edentulism, unspecified edentulism class documented in this encounter Visit Diagnoses Diagnosis Partial edentulism, unspecified edentulism class- Primary documented in this encounter Additional Health Concerns Assessment Noted Time PHQ-9 Depression Total Score: 0 07/03/19 24 10:45 AM EST documented as of this encounter Care Teams Wafer Substrate Tester Relationship Specialty Start Date End Date Otilia Quiñones MD [address] [place] [phone] PCP - General Family Medicine 09/15/13 documented as of this encounter
--- OUTSIDE RECORDS SUMMARY | 2025-02-10 11:30 | XMS_ITS | Encounter Summary ---
Author Organization [employer] Address [address] [place] [address] [address] [place] [address] Care Team Providers Care Storeroom Attendant Name Role Phone Otilia Quiñones MD Primary Care Provider [phone] Reason for Referral * Consultation (Routine) - Pending Review Specialty Diagnoses / Procedures Referred By Marilynn sharma Referred To Contact Cardiology Diagnoses Palpitations Otilia Quiñones MD [address] [place] [address] Phone: tel: fax: Referral ID Status Reason Start Date Expiration Date Visits Requested Visits Authorized [id number] Pending Review Specialty Services Required 02/10/2025 02/10/2026 1 1 Encounter Details Date Type Department Care Team ([facility] st Contact Info) Description 02/10/2025 11:30 AM EDT Office Visit [facility] [address] [place] [address] Otilia Quiñones MD [address] [place], [place] [id number] Dermatitis (Primary Dx); Iron deficiency anemia, unspecified iron deficiency anemia type; Palpitations; Sore throat Social History Tobacco Use Types Packs/Day Years [...] Date Recorded Patient Health Questionnaire-2 Score 0 02/10/2025 Comments No Sex and Gender Information Value Date Recorded Sex Assigned at Female 04/02/2022 10:17 AM EDT Legal Sex Female 10:17 AM EDT Gender Identity Female 04/02/2022 10:17 AM EDT Sexual Orientation Straight 04/02/2022 10 :17 AM EDT documented as of this encounter Last Filed Vital Signs Vital Sign Reading Time Taken Comments Blood Pressure 120/70 02/10/2025 11:36 AM EDT Pulse 80 02/10/2025 11:36 AM EDT Temperature 36.8 C (98.2 F) 02/10/2025 11:36 AM EDT Respiratory Rate 16 02/10/2025 11:36 AM EDT Oxygen Saturation - - Inhaled Oxygen Concentration - - Weight 71.7 kg (158 lb) 02/10/2025 11:36 AM EDT Height - - Body Mass Index 27.12 10/15/2024 10:57 AM EDT documented in this encounter Functional Status * Over the past 2 weeks, how often have you been bothered by any of the following problems? Question Answer Date of Assessment Author Patient Health Questionnaire -2 Score 0 02/10/2025 11:37 AM EDT Maria A Rodriguez MA * Little interest or pleasure in doing things Answer Date of Assessment Author Not at all 02/10/2025 11:37 AM EDAndreina Dorsey MA * Feeling down, depressed, or hopeless Answer Date of Assessment Author Not at all 02/10/2025 11:37 AM Andreina Cope MA * Trouble falling or staying asleep, or sleeping too much Answer Date of Assessment Author Several days 02/10/2025 11:37 AM EDT Andreina Howard MA * Feeling tired or having little energy Answer Date of Assessment Author Several days 02/10/2025 11:37 AM Andreina Cope MA * Feeling bad about yourself - or that you are a failure or have let yourself or your family down Answer Date of Assessment Author Not at all 02/10/2025 11:37 AM Andreina Cope MA * Trouble concentrating on things, such as reading the newspaper or watching television Answer Date of Assessment Author Not at all 02/10/2025 11:37 AM Andreina Cope MA * Moving or speaking so slowly that other people could have noticed? Or the opposite - being so fidgety or restless that you have been moving around a lot more than usual. Answer Date of Assessment Author Several days 02/10/2025 11:37 AM Andreina Cope MA * Thoughts that you would be better off or hurting yourself in some way Answer Date of Assessment Author Not at all 02/10/2025 11:37 AM Andreina Cope MA documented as of this encounter Plan of Treatment Upcoming Encounters Date Type Department Care Team (Late st Contact Info) Description 02/17/2025 10:30 AM EDT Office Visit [facility] [address] [place] [address] Yoshi Sandoval DMD [address] [place] [address] 03/24/2025 11:00 AM EDT Office Visit [facility] [address] [place] [address] Xavier Ng, DMD [address] [place] [address] Scheduled Orders Name Type Priority Associated Diagnoses Orde r Schedule Sjogren's Antibodies (SS-A,SS-B) Lab Routine Dermatitis Expected: 02/10/2025 (Approximate), Expires: 02/10/2026 Helicobacter pylori Antigen, EIA, Stool Lab Routine Iron deficiency anemia, unspecified iron deficiency anemia type Expected: 02/10/2025, Expires: 02/10/2026 Culture, Throat Microbiology Routine Sore throat Ordered: 02/10/2025 Scheduled Referrals Name Type Priority Associated Diagnoses Order Schedule Referral to Cardiology Outpatient Referral Routine Palpitations Expected: 02/10/2025 (Approximate), Expires: 02/10/2026 documented as of this encounter Procedures Procedure Name Priority Date/Time Associated Diagnosis Comments CBC WITH AUTO DIFFERENTIAL Routine 02/10/2025 12:48 PM EDT Dermatitis POCT RAPID STREP A Routine 02/10/2025 12 :03 PM EDT Sore throat documented in this encounter Results * (ABNORMAL) CBC auto differential (02/10/2025 12:48 PM EDT) White Blood Count 4.4(L) 4.8 - 10.8 X10*3/uL [facility] Red Blood Count 4.85 4.20 - 5.50 X10*6/uL [facility] Hemoglobin 12.3 12.0 - 16.0 g/dl [facility] Hematocrit 37.2 37.0 - 47.0 % [facility] Mean Corpuscular Volume 76.7(L) 80.0 - 98.0 fL [facility] Mean Corpuscular Hemoglobin 25.4(L) 27.0 - 33.0 pg [facility] Mean Corpuscular HGB Conc 33.1 31.0 - 35.0 g/dl [facility] Red Cell Distribution Width 13.6 11.0 - 16.0 % [facility] Platelet Count 212 160 - 400 X10*3/uL [facility] Mean Platelet Volume 11.0 9.4 - 12.3 fL [facility] Neutrophils Percent Auto 56.0 45 - 73 % [facility] Imm Gran Pct Auto 0.2 0.0 - 0.4 % [facility] Lymphocytes Percent Auto 26.4 20 - 40 % [facility] Monocytes Percent Auto 14.0(H) 2 - 11 % [facility] Eosinophils Percent Auto 3.2 0 - 4 % [facility] Basophils Percent Auto 0.2 0 - 2 % [facility] NRBC Pct Auto 0.0 0.0 - 0.2 /100WBC [facility] Neutrophils Absolute Auto 2.4 2.0 - 8.3 x10*3/uL [facility] Imm Gran Abs Auto 0.01 0.00 - 0.03 X10*3/uL [facility] Lymphocytes Absolute Auto 1.2 1.2 - 4.9 X10*3/uL [facility] Monocytes Absolute Auto 0.6 0.1 - 1.2 X10*3/uL [facility] Eosinophils Absolute Auto 0.1 0.0 - 0.4 X10*3/uL [facility] Basophils Absolute Auto 0.0 0.0 - 0.2 X10*3/uL [facility] NRBC Abs Auto 0.000 0.0 - 0.012 X10*3/uL [facility] Blood Venous blood specimen / Unknown 02/10/2025 12:48 PM EDT 02/10/2025 2:23 PM EDT us Otilia Quiñones MD LAB BLOOD ORDERABLES Final Re sult [facility] [address] [place] [address] [phone] * POCT Rapid Strep A OSOM (02/10/2025 12:03 PM EDT) Pathologist [facility] Rapid Strep A Screen Negative Negative, None Detected Swab 02/10/2025 12:0 3 PM EDT Otilia Quiñones MD POINT OF CARE TEST ENTER/EDIT ORDERABLES Final Result documented in this encounter Visit Diagnoses Diagnosis Dermatitis- Primary Contact dermatitis and other eczema, due to unspecified cause Iron deficiency anemia, unspecified iron deficiency anemia type Palpitations Sore throat Acute pharyngitis documented in this encounter Additional Health Concerns Assessment Noted Time PHQ-9 Depression Total Score: 0 07/03/19 24 10:45 AM EST documented as of this encounter Care Teams Storeroom Attendant Relationship Specialty Start Date End Date Otilia Quiñones MD [address] [place] [address] PCP - General Family Medicine 09/15/13 documented as of this encounter
[2025-02-10 14:26] LABS: MANUAL DIFF FLAG NO
[2025-02-10 14:33] LABS: Hematocrit 37.2 % (37.0-47.0); Hemoglobin 12.3 g/dl (12.0-16.0); Imm Gran Abs Auto 0.01 X10*3/uL (0.00-0.03); Imm Gran Pct Auto 0.2 % (0.0-0.4); Lymphocytes Absolute Auto 1.2 X10*3/uL (1.2-4.9); Mean Corpuscular HGB Conc 33.1 g/dl (31.0-35.0); Mean Corpuscular Hemoglobin 25.4 pg (27.0-33.0); Mean Corpuscular Volume 76.7 fL (80.0-98.0); NRBC Abs Auto 0.000 X10*3/uL (0.0-0.012); NRBC Pct Auto 0.0 /100WBC (0.0-0.2); Platelet Count 212 X10*3/uL (160-400); Red Blood Count 4.85 X10*6/uL (4.20-5.50); White Blood Count 4.4 X10*3/uL (4.8-10.8)
--- OUTSIDE RECORDS SUMMARY | 2025-02-10 15:48 | XMS_ITS | Encounter Summary ---
Author Organization [employer] Address [address] [place] [address] Care Team Providers Care Supervisor [employer] Name Role Phone Otilia Quiñones MD Primary Care Provider [phone] Encounter Details Date Type Department Care Team (Latest Contact Info) Description 02/10/2025 Travel Social History Tobacco Use Types Packs/Day [...] AM EDT documented as of this encounter Functional Status * Over the past 2 weeks, how often have you been bothered by any of the following problems? Question Answer Date of Assessment Author Patient Health Questionnaire -2 Score 0 02/10/2025 11:37 AM EDT Maria A Rodriguez MA * Little interest or pleasure in doing things Answer Date of Assessment Author Not at all 02/10/2025 11:37 AM EDT Andreina Howard MA * Feeling down, depressed, or hopeless Answer Date of Assessment Author Not at all 02/10/2025 11:37 AM EDT Andreina Howard MA * Trouble falling or staying asleep, or sleeping too much Answer Date of Assessment Author Several days 02/10/2025 11:37 AM EDT Andreina Howard MA * Feeling tired or having little energy Answer Date of Assessment Author Several days 02/10/2025 11:37 AM BENIT Andreina Howard MA * Feeling bad about yourself - or that you are a failure or have let yourself or your family down Answer Date of Assessment Author Not at all 02/10/2025 11:37 AM Andreina Cope MA * Trouble concentrating on things, such as reading the newspaper or watching television Answer Date of Assessment Author Not at all 02/10/2025 11:37 AM EDT Andreina Howard MA * Moving or speaking so slowly [...] Author Not at all 02/10/2025 11:37 AM EDT Andreina Howard MA documented as of this encounter Plan of Treatment Upcoming Encounters Date Type Department Care Team (Late st Contact Info) Description 02/17/2025 10:30 AM EDT Office Visit [facility] [address] [place] [address] Jaime, Yoshi, DMD [address] [place] [address] 03/24/2025 11:00 AM EDT Office Visit [facility] [address] [place] [address] Xavier Ng, DMD [address] [place] [address] documented as of this encounter Visit Diagnoses Not on filedocumented in this encounter Additional Health Concerns Assessment Noted Time PHQ-9 Depression Total Score: 0 07/03/19 24 10:45 AM EST documented as of this encounter Care Teams Supervisor [employer] Relationship Specialty Start Date End Date Otilia Quiñones MD [address] [place] [address] PCP - General Family Medicine 09/15/13 documented as of this encounter
--- OUTSIDE RECORDS SUMMARY | 2025-02-10 15:48 | XMS_ITS | Clinical Summary ---
Author Organization [employer] Address [address] [facility] [address] [place] [address] Care Team Providers Care Etl Programmer Name Role Phone Otilia Quiñones MD Primary Care Provider [phone] Allergies No known active allergies Medications hydrOXYzine HCl (Atarax) 25 MG tablet Take 1 tablet (25 mg) by mouth if needed at bedtime for itching. 1 tab to 2 tabs a day 60 tablet 3 01/09/20 23 Active Additional Information Patient not taking.Reported on 02/03/2025 omeprazole (PriLOSEC) [address] capsule Take 1 capsule by mouth Once per day. 04/24/20 24 Active bismuth subsalicylate (Pepto Bismol) 262 MG chewable tablet One tab po four times a day for 14 days 56 tablet 10/21/19 25 Active Additional Information Patient not taking.Reported on 02/03/2025 meloxicam (Mobic) 7.5 MG tablet Take 1 tablet (7.5 mg) by mouth Once per day. 30 tablet 3 12/11/19 25 2025 Active Additional Information Patient not taking.Reported on 02/03/2025 cloNIDine (Catapres) 0.2 MG tablet Take 1 tab orally qhs 30 tablet 3 12/11/19 25 Active Ferrous Sulfate (iron) 325 (65 Fe) MG tabletIndication s:RBC microcytosis TAKE ONE TABLET BY MOUTH EVERY DAY WITH BREAKFAST. DO NOT BREAK, CRUSH, DISSOLVE OR CHEW. 90 tablet 01/29/20 25 Active ferrous sulfate (Fe Tabs) 325 (65 Fe) MG EC tabletIndication s:RBC microcytosis Take 1 tablet (325 mg) by mouth with breakfast. Do not crush, chew, or split. 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 Will refill her weekly dose. Prolapsed hemorrhoids 03/04/2018 Encounters Date Type Department Care Team Description 02/10/2025 11:30 AM EDT Office Visit [facility] [address] [place] [address] Otilia Quiñones MD Dermatitis (Primary Dx); Iron deficiency anemia, unspecified iron deficiency anemia type; Palpitations; Sore throat 02/10/2025 Travel 02/09/2025 Telephone [facility] [address] [place] [address] Otilia Quiñones MD Chart Prep 02/03/2025 9:30 AM EDT Office Visit [facility] [address] [place] [address] Yoshi Sandoval DMD Partial edentulism, unspecified edentulism class (Primary Dx) 02/02/2025 1:00 PM EDT Office Visit [facility] [address] [place] [address] Yoshi Sandoval DMD Dental caries (Primary Dx) 01/28/2025 Refill [facility] [address] [place] [address] Henrique Whittaker MD RBC microcytosis 01/12/2025 11:00 AM EDT Office Visit [facility] [address] [place] [address] Yoshi Sandoval DMD Dental caries (Primary Dx); History of tooth extraction, unspecified edentulism class 12/10/2024 11:00 AM EDT Office Visit [facility] [address] [place] [address] Otilia Quiñones MD Helicobacter pylori infection (Primary Dx); Iron deficiency anemia, unspecified iron deficiency anemia type; Dry mouth and eyes; Pulmonary nodule 12/10/2024 Travel from Last 3 Months Immunizations Immunization Administration [...] the past 12 months, has t he [employer] gas, oil or water company threatened to [...] 16 02/10/2025 11:36 AM EDT Oxygen Saturation 99% 11/02/2024 10:55 AM EDT Inhaled Oxygen Concentration - - Weight 71.7 kg (158 lb) 02/10/2025 11:36 AM EDT Height 162.6 cm (5' 4 ) 10/15/2024 10:57 AM EDT Body Mass Index 27.12 10/15/2024 10:57 AM EDT Plan of Treatment Upcoming Encounters Date Type Department Care Team (Late st Contact Info) Description 02/17/2025 10:30 AM EDT Office Visit [facility] [address] [place] [address] Yoshi Sandoval, DMD [address] [place] [address] 03/24/2025 11:00 AM EDT Office Visit [facility] [address] [place] [address] Xavier Ng, DMD [address] [place] [address] Health Maintenance Due Date Last Done Comments CT Colonography 1975 Colonoscopy 1975 Colorectal Cancer Screening 1975 FIT DNA/Cologuard 1975 FIT 1975 FOBT 1975 Sigmoidoscopy 1975 Family Planning (PISQ) 1991 Hepatitis B Vaccines (1 of 3 - 19+ 3-dose series) 1995 SDOH Screening 06/15/2023 06/15/2022 Dental X-Ray: Full Mouth 08/13/2023 08/11/2020, 12/02 Dental Prophylaxis 01/18/2024 07/19/2023, 0 12/17/2022, 06/28/2021, Additional history exists COVID-19 Vaccine ( season) 2025 Influenza Vaccine (#1) 2025 Mammogram 06/17/2025 06/17/2024, 02/01, 02/12/2023, Additional history exists Cervical Cancer Screening 08/02/2025 HPV/Cotest 08/02/2025 08/02/2020 Pap Smear 08/02/2025 08/02/2020 Dental Oral Exam 08/04/2025 02/03/2025, , 11/21/2022, Additional history exists Dental X-Ray: Bitewings 01/13/2026 01/13/20, 11/21/2022, 08/25/2021, Additional history exists Alcohol/Substance Use Screening 02/10/2026 02/10/2025 Depression Screening 02/10/2026 02/10/2025, 07/03/19 Disability Screening 02/10/2026 02/10/2025 Tobacco Screening 02/10/2026 02/10/2025 Zoster Vaccines (1 of 2) 2026 DTaP/Tdap/Td [...] Years) and At-Risk Patients (6 to 49) Years Aged Out No longer eligible based on [...] 02/10/2025 12 :03 PM EDT Sore throat CASE PRESENTATION, DETAILED AND EXTENSIVE TREATMENT PLANNING Routine 02/03/2025 9:30 AM EDT Partial edentulism, unspecified edentulism class PERIODIC ORAL EVALUATION - ESTABLISHED PATIENT Routine 02/03/2025 9:30 AM EDT Partial edentulism, unspecified edentulism class 14 CROWN PREP Routine 02/03/2025 9:30 AM EDT Partial edentulism, unspecified edentulism class CASE PRESENTATION, DETAILED AND EXTENSIVE TREATMENT PLANNING Routine 02/02/2025 1:00 PM EDT Dental caries 5 MODB RESIN-BASED COMPOSITE - 4+ SURF, POSTERIOR Routine 02/02/2025 1:00 PM EDT Dental caries CASE PRESENTATION, DETAILED AND EXTENSIVE TREATMENT PLANNING Routine 01/12/2025 11:00 AM EDT History of tooth extraction, unspecified edentulism class Dental caries INTRAORAL - PERIAPICAL FIRST RADIOGRAPHIC IMAGE Routine 01/12/2025 11:00 AM EDT History of tooth extraction, unspecified edentulism class Dental caries BITEWING - SINGLE RADIOGRAPHIC IMAGE Routine 01/12/2025 11:00 AM EDT History of tooth extraction, unspecified edentulism class Dental caries LIMITED ORAL EVALUATION - PROBLEM FOCUSED Routine 01/12/2025 11:00 AM EDT History of tooth extraction, unspecified edentulism class Dental caries FERRITIN Routine 12/10/2024 11:24 AM EDT Helicobacter pylori infection Iron deficiency anemia, unspecified iron deficiency anemia type SED RATE BY MODIFIED WESTERGREN Routine 12/10/2024 11:24 AM EDT Helicobacter pylori infection Iron deficiency anemia, unspecified iron deficiency anemia type RHEUMATOID FACTOR Routine 12/10/2024 11: 24 AM EDT Helicobacter pylori infection Iron deficiency anemia, unspecified iron deficiency anemia type FREDERIC SCREEN, IFA, W/REFL TITER AND PATTERN Routine 12/10/2024 11:24 AM EDT Helicobacter pylori infection Iron deficiency anemia, unspecified iron deficiency anemia type CT ABDOMEN PELVIS W CONTRAST Urgent 11/12/2024 10:37 AM EDT Generalized abdominal pain HEPATITIS C AB W/REFL TO HCV RNA, QN, PCR Routine 10/15/2024 1:34 PM EDT Dermatitis Generalized abdominal pain HIV 1/2 ANTIGEN/ANTIBODY, FOURTH GENERATION W/RFL Routine 10/15/2024 1:34 PM EDT Dermatitis Generalized abdominal pain BI MAMMOGRAM DIAGNOSTIC TOMOSYNTHESIS BILATERAL Routine 06/17/2024 11:18 AM EST Full PROPHYLAXIS - ADULT Routine 07/19/2023 11:00 AM EST INTRAORAL - COMPLETE SERIES OF RADIOGRAPHIC IMAGES Routine 08/11/2020 12:00 AM EST HPV MRNA E6/E7 Routine 08/02/2020 9:01 AM EST THINPREP PAP Routine 08/02/2020 9:01 AM EST from Last 3 Months or Most Recently Relevant to Health Maintenance Results * (ABNORMAL) CBC auto differential (02/10/2025 12:48 PM EDT) White Blood Count 4.4(L) 4.8 - 10.8 X10*3/uL [facility] Red Blood Count 4.85 4.20 - 5.50 X10*6/uL [facility] Hemoglobin 12.3 12.0 - 16.0 g/dl [facility] Hematocrit 37.2 37.0 - 47.0 % [facility] Mean Corpuscular Volume 76.7(L) 80.0 - 98.0 fL [facility] Mean Corpuscular Hemoglobin 25.4(L) 27.0 - 33.0 pg [facility] Mean Corpuscular HGB Conc 33.1 31.0 - 35.0 g/dl [facility] Red Cell Distribution Width 13.6 11.0 - 16.0 % [facility] Platelet Count 212 160 - 400 X10*3/uL [facility] Mean Platelet Volume 11.0 9.4 - 12.3 fL [facility] Neutrophils Percent Auto 56.0 45 - 73 % [facility] Imm Gran Pct Auto 0.2 0.0 - 0.4 % [facility] Lymphocytes Percent Auto 26.4 20 - 40 % [facility] Monocytes Percent Auto 14.0(H) 2 - 11 % [facility] Eosinophils Percent Auto 3.2 0 - 4 % [facility] Basophils Percent Auto 0.2 0 - 2 % [facility] NRBC Pct Auto 0.0 0.0 - 0.2 /100WBC [facility] Neutrophils Absolute Auto 2.4 2.0 - 8.3 x10*3/uL [facility] Imm Gran Abs Auto 0.01 0.00 - 0.03 X10*3/uL [facility] Lymphocytes Absolute Auto 1.2 1.2 - 4.9 X10*3/uL [facility] Monocytes Absolute Auto 0.6 0.1 - 1.2 X10*3/uL [facility] Eosinophils Absolute Auto 0.1 0.0 - 0.4 X10*3/uL [facility] Basophils Absolute Auto 0.0 0.0 - 0.2 X10*3/uL [facility] NRBC Abs Auto 0.000 0.0 - 0.012 X10*3/uL [facility] Blood Venous blood specimen / Unknown 02/10/2025 12:48 PM EDT 02/10/2025 2:23 PM EDT us Otilia Quiñones MD LAB BLOOD ORDERABLES Final Re sult [facility] [address] [place] [phone] * POCT Rapid Strep A OSOM (02/10/2025 12:03 PM EDT) [facility] Rapid Strep A Screen Negative Negative, None Detected Swab 02/10/2025 12:0 3 PM EDT Otilia Quiñones MD POINT OF CARE TEST ENTER/EDIT ORDERABLES Final Result * Sed Rate by Modified Westergren (12/10/2024 11:24 AM EDT) [facility] Erythrocyte Sedimentation Rate 9 0 - 20 MM/HR [facility] Comment:Patients with polycy themia and many hemoglobin abnormalitiesmay have depressed sed rates whereas patients with anemiamay have elevated sed rates. Blood Venous blood specimen / Unknown 12/10/2024 11:24 AM EDT 12/10/2024 3:46 PM EDT Result [facility] Otilia Quiñones MD LAB BLOOD ORDERABLES Final Re sult Performing Organization Address City/[facility] Co de Phone Number [facility] [address] [place] [phone] * Rheumatoid Factor (12/10/2024 11:24 AM EDT) [facility] Rheumatoid Factor <13.0 <15.0 IU/mL [facility] Blood Venous blood specimen / Unknown 12/10/2024 11:24 AM EDT 12/10/2024 3:44 PM EDT Otilia Quiñones MD LAB BLOOD ORDERABLES Final Re sult Performing Organization Address [facility] Co de Phone Number [facility] [address] [place] [phone] * (ABNORMAL) FREDERIC Screen,IFA, with Reflex to Titer and Pattern (12/10/2024 11:24 AM EDT) [facility] Anti Nuclear Antibody Screen POSITIVE (A) NEGATIVE [facility] Comment:FREDERIC IFA is a first l ine screen for detecting thepresence of up to approximately 150 autoantibodies invarious autoimmune diseases. A positive FREDERIC IFA resultis suggestive of autoimmune disease and reflexes totiter and pattern. Further laboratory testing may beconsidered if clinically indicated.For additional information, please refer tohttp://education.SpePharm/faq/IKQ341(This link is being provided for informational/educational purposes only.) FREDERIC Titer 1:80(A) titer [facility] Comment:A low level FREDERIC tite r may be present in pre-clinicalautoimmune diseases and normal individuals. Reference Range <1:40 Negative 1:40-1:80 Low Antibody Level >1:80 Elevated Antibody Level FREDERIC Pattern (A) [facility] Comment:Mitotic, Spindle Fib ers Abnormal Flag: AThe spindle fibers between the poles are stained inmitotic cells, associated with cone-shaped decorationof the mitotic poles. The pattern is rare in Sjogren'ssyndrome, systemic lupus erythematosus (SLE), andother connective tissue diseases.AC-25: Spindle FibersInternational Consensus on FREDERIC Patterns(https://doi.org/10.1515/cmqx-9095-4356) FREDERIC TITER 2 (REF LAB) 1:80(A) titer [facility] Comment:A low level FREDERIC tite r may be present in pre-clinicalautoimmune diseases and normal individuals. Reference Range <1:40 Negative 1:40-1:80 Low Antibody Level >1:80 Elevated Antibody Level FREDERIC Pattern 2 Nuclear, Speckled (A) [facility] Comment:Speckled pattern is associated with mixed connectivetissue disease (MCTD), systemic lupus erythematosus(SLE), Sjogren's syndrome, dermatomyositis, andsystemic sclerosis/polymyositis overlap.AC-2,4,5,29: SpeckledInternational Consensus on FREDERIC Patterns(https://doi.org/10.1515/cdoj-3269-3212)THIS TEST WAS PERFORMED AT:[employer] [place] [phone] NASSAR MD FREDERIC TITER 3 TNP [facility] FREDERIC PATTERN 3 [facility] Blood Venous blood specimen / Unknown 12/10/2024 11:24 AM EDT 12/10/2024 3:46 PM EDT Otilia Quiñones MD LAB BLOOD ORDERABLES Final Re sult Performing Organization Address [facility] Co de Phone Number [facility] [address] [place] [phone] * Ferritin (12/10/2024 11:24 AM EDT) Ferritin 45 10 - 250 ng/mL [facility] Blood Venous blood specimen / Unknown 12/10/2024 11:24 AM EDT 12/10/2024 3:46 PM EDT us Otilia Quiñones MD LAB BLOOD ORDERABLES Final Re sult Performing Organization Address [facility] de Phone Number [facility] [address] [place] [phone] * CT Abdomen Pelvis w/ Contrast (11/12/2024 10:37 AM EDT) Anatomical Region Laterality Modality Body, Pelvis, Abdomen Computed T omography 11/12/2024 10:3 7 AM EDT Narrative 11/12/2024 12:48 PM EDT [address] [address] [address] Scan Report Signed Patient: Geovanna Hobbs MR#: [id number] 73 : 1975 Acct:[id number] Age/Sex: 49 / F ADM Date: 11/12/24 Loc: HO.CT Attending Dr: Otilia Quiñones MD Ordering Physician: Otilia Quiñones MD Date of Service: 11/12/24 Procedure(s): CT abdomen pelvis w IV con Accession Number(s): [id number] cc: Otilia Quiñones MD Report Number: [id number]: Total DLP = 441.00 mGy-cm EXAMINATION: CT ABDOMEN AND PELVIS WITH CONTRAST CLINICAL INFORMATION: Chronic abdominal pain, hematochezia COMPARISON: March 08, 2013 TECHNIQUE: Multidetector volumetric images were obtained from the superior aspect of the liver through the pubic symphysis following administration 85 mL of Omnipaque 350 intravenous contrast. Sagittal and coronal reformatted images were obtained on the technologist's workstation. Oral contrast: Present This CT examination was performed using dose optimization techniques as appropriate, variously including the following: *Automated exposure control *Adjustment of mA and/or kV according to patient size (this includes techniques or standardized protocols for targeted exams where dose is matched to indication/reason for exam; i.e. extremities or head) *Use of iterative reconstruction technique DLP: 441 mGY*cm FINDINGS: LUNG BASES: Stable 3 mm solid pulmonary nodule in the lateral segment right middle lobe is benign. LIVER, GALLBLADDER, AND BILIARY TREE: The liver is normal in size, shape, and attenuation. No focal hepatic lesion or biliary ductal dilatation is present. The gallbladder is unremarkable with no evidence of radiopaque gallstones, gallbladder wall thickening, or obvious pericholecystic inflammatory changes. PANCREAS: Unremarkable. SPLEEN: Unremarkable. ADRENAL GLANDS: Unremarkable. KIDNEYS AND URETERS: The kidneys are normal in size, shape, and attenuation. No hydronephrosis, hydroureter, or calculi seen. No perinephric stranding. BLADDER: Unremarkable. GASTROINTESTINAL TRACT: The small and large bowel are unremarkable. The appendix is unremarkable. ABDOMINAL WALL: No significant hernia is appreciated. LYMPH NODES: No adenopathy. VASCULAR: Unremarkable. PELVIC VISCERA: Unremarkable. Incidentally, there is a 2.6 cm simple cyst/follicle in the right ovary. OSSEOUS STRUCTURES: The left L5 transverse process pseudoarticulation with the upper sacrum. CT/CT abdomen pelvis w IV con IMPRESSION: Unremarkable abdomen and pelvis. Benign right middle lobe pulmonary nodule. Sacralized L5 left transverse process. Fleischner guidelines were followed. Electronically signed by: Kevin Rivera MD 11/12/2024 12:44 PM EDT Dictated By: Kevin Rivera MD Signed By: <Electronically signed by Kevin Rivera MD in OV> 11/12/24 1244 DD/ 1037 TD/TT: 11/12/24 1216 Shredder Operator: Procedure Note Donotuseinterpreter, Image - 11/12/[address] [address] [address] Scan Report Signed Patient: Geovanna HobbsMR#: [id number] 74 : 1975Acct:[id number] Age/Sex: 49 / FADM Date: 11/12/24 Loc: HO.CT Attending Dr: Otilia Quiñones MD Ordering Physician: Otilia Quiñones MD Date of Service: 11/12/24 Procedure(s): CT abdomen pelvis w IV con Accession Number(s): [id number] cc: Otilia Quiñones MD Report Number: [id number]: Total DLP = 441.00 mGy-cm EXAMINATION: CT ABDOMEN AND PELVIS WITH CONTRAST CLINICAL INFORMATION: Chronic abdominal pain, hematochezia COMPARISON: March 08, 2013 TECHNIQUE: Multidetector volumetric images were obtained from the superior aspect of the liver through the pubic symphysis following administration 85 mL of Omnipaque 350 intravenous contrast. Sagittal and coronal reformatted images were obtained on the technologist's workstation. Oral contrast: Present This CT examination was performed using dose optimization techniques as appropriate, variously including the following: *Automated exposure control *Adjustment of mA and/or kV according to patient size (this includes techniques or standardized protocols for targeted exams where dose is matched to indication/reason for exam; i.e. extremities or head) *Use of iterative reconstruction technique DLP: 441 mGY*cm FINDINGS: LUNG BASES: Stable 3 mm solid pulmonary nodule in the lateral segment right middle lobe is benign. LIVER, GALLBLADDER, AND BILIARY TREE: The liver is normal in size, shape, and attenuation. No focal hepatic lesion or biliary ductal dilatation is present. The gallbladder is unremarkable with no evidence of radiopaque gallstones, gallbladder wall thickening, or obvious pericholecystic inflammatory changes. PANCREAS: Unremarkable. SPLEEN: Unremarkable. ADRENAL GLANDS: Unremarkable. KIDNEYS AND URETERS: The kidneys are normal in size, shape, and attenuation. No hydronephrosis, hydroureter, or calculi seen. No perinephric stranding. BLADDER: Unremarkable. GASTROINTESTINAL TRACT: The small and large bowel are unremarkable. The appendix is unremarkable. ABDOMINAL WALL: No significant hernia is appreciated. LYMPH NODES: No adenopathy. VASCULAR: Unremarkable. PELVIC VISCERA: Unremarkable. Incidentally, there is a 2.6 cm simple cyst/follicle in the right ovary. OSSEOUS STRUCTURES: The left L5 transverse process pseudoarticulation with the upper sacrum. CT/CT abdomen pelvis w IV con IMPRESSION: Unremarkable abdomen and pelvis. Benign right middle lobe pulmonary nodule. Sacralized L5 left transverse process. Fleischner guidelines were followed. Electronically signed by: Kevin Rivera MD 11/12/2024 12:44 PM EDT RP Dictated By: Kevin Rivera MD Signed By: <Electronically signed by Kevin Rivera MD in OV> 11/12/24 1244 DD/ 1037 TD/TT: 11/12/24 1216 Shredder Operator: Otilia Quiñones MD IMG CT PROCEDURES Edited Resu lt - Final * Hepatitis C Antibody with Reflex to HCV, RNA, Quantitative, Real-Time PCR (10/15/2024 1:34 PM EDT) Hepatitis C Antibody Nonreactive Nonreactive [facility] Comment:Antibodies to HCV no t detected; does not exclude early acuteHCV infection. Blood Venous blood specimen / Unknown 10/15/2024 1:34 PM EDT 10/15/2024 2:19 PM EDT Otilia Quiñones MD LAB BLOOD ORDERABLES Final Re sult [facility] [address] [place] [phone] * HIV-1/2 Antigen and Antibodies, Fourth Generation, with Reflexes (10/15/2024 1:34 PM EDT) HIV AB/AG Nonreactive Nonreactive [facility] Comment:HIV-1 p24 Ag and/or HIV-1/HIV-2 Ab not detected.A test result that is nonreactive does not exclude thepossibility of exposure to or infection with HIV-1 and/orHIV-2. Nonreactive results in this assay for individualswith prior exposure to HIV-1 and/or HIV-2 may be due toantigen and antibody levels that are below the limit ofdetection of this assay.The [employer] HIV Ag/Ab Combo assay result andsupplemental assay results should be interpreted inconjunction with the patient's clinical presentation,history and other laboratory results. If the results areinconsistent with clinical evidence, additional testing issuggested to confirm the result. Blood Venous blood specimen / Unknown 10/15/2024 1:34 PM EDT 10/15/2024 2:19 PM EDT us Otilia Quiñones MD LAB BLOOD ORDERABLES Final Re sult [facility] [address] [place] [phone] * BI Mammogram Diagnostic Tomosynthesis Bilateral (06/17/2024 11:18 AM EST) Anatomical Region Laterality Modality Breast Bilateral Mammography 06/17/2024 11:1 8 AM EST Narrative 06/17/2024 1:06 PM EST [address] [place] [address] Mammography Report Signed Patient: Geovanna Hobbs MR#: [id number] 73 : 1975 Acct:[id number] Age/Sex: 48 / F ADM Date: 06/17/24 Loc: NENA.MAMMO Attending Dr: Yunier Bentley MD Ordering Physician: Yunier Bentley MD Results: 2Beni gn Findings Date of Service: 06/17/24 Follow Up: 1 Year From [facility] Mammogram Procedure(s): MM tomosynthesis diagnostic BI Accession Number(s): [id number] cc: Otilia Quiñones MD; Yunier Bentley MD [...] by: Criselda Jimenez DO 06/17/2024 01:03 PM [facility] Dictated By: Criselda Jimenez DO Signed By: <Electronically signed by Criselda Jimenez DO in OV> 06/17/24 1303 DD/ 1118 TD/TT: 06/17/24 1146 Shredder Operator: Procedure Note Donotuseinterpreter, Image - 06/17/2024 [facility] [address] [place] [address] Mammography Report Signed Patient: Geovanna HobbsMR#: [id number] 74 : 1975Acct:[id number] Age/Sex: 48 / FADM Date: 06/17/24 Loc: SUBHASH Attending Dr: Yunier Bentley MD Ordering Physician: Yunier Bentley MDResults: 2Beni gn Findings Date of Service: 06/17/24Follow Up: 1 Year From Orig inal Mammogram Procedure(s): MM tomosynthesis diagnostic BI Accession Number(s): [id number] cc: Otilia Quiñones MD; Yunier Bentley MD [...] 06/17/24 1303 DD/ 1118 TD/TT: 06/17/24 1146 Shredder Operator: [facility] External Provider IMG BI PROCEDURES Final Result * THINPREP PAP (08/02/2020 9:01 AM EST) Clinical Information: None given [facility] COMMENT SEE COMMENT [facility] Comment: EXPLANATORY NOTE: The Pap is a screening test for cervical cancer. It is not a diagnostic test and is subject to false negative and false positive results. It is most reliable when a satisfactory sample, regularly obtained, is submitted with relevant clinical findings and history, and when the Pap result is evaluated along with historic and current clinical information. Systems Administrator : SEE COMMENT [facility] Comment: BK,CT(ASCP) CT screening location: [address] Interpretation/R esult: Negative for intraepithelial lesion or malignancy. [facility] LMP: 06/03/2020 [facility] Prev. BX: NONE GIVEN [facility] Prev. PAP: NONE GIVEN [facility] Review Systems Administrator : SEE COMMENT [facility] Comment: SL, CT(ASCP) CT screening location: [address] [address] SOURCE: None given [facility] Statement Of Adequacy: SEE COMMENT [facility] Comment: Satisfactory for evaluation. Endocervical/transformation zone component absent. 08/02/2020 9:01 AM EST [facility] LAB PATHOLOGY ORDERABLES Final Result Performing Organization Address [facility] de Phone Number [facility] [address] * HPV mRNA E6/E7 (08/02/2020 9:01 AM EST) HPV nRNA E6/E7 Not Detected Not Detected [facility] Comment: Methodology: Senior C Software Developer-Mediated Amplification This assay detects E6/E7 viral messenger RNA (mRNA) from 14 high-risk HPV types (16,18,31,33,35,39,45,51,52,56,58,59,66,68). The analytical performance characteristics of this assay have been determined by [employer]. The modifications have not been cleared or approved by the FDA. This assay has been validated pursuant to the CLIA regulations and is used for clinical purposes. For additional information, please refer to http://education.[employer]/faq/OKZ435u5 (This link if provided for information/ educational purposes only.) 08/02/2020 9:01 AM EST [facility] LAB BLOOD ORDERABLES Kelly l Result Performing Organization Address [facility] de Phone Number [facility] [address] from Last 3 Months or Most Recently Relevant to Health Maintenance Insurance [facility] MEDICAID STAND ADULT * Guarantor: Geovanna Hobbs Account Type Relation to Patient Date of Phone Billing Address Personal/Family Self [address] Care Teams Etl Programmer Relationship Specialty Start Date End Date Otilia Quiñones MD [address] [facility] [address] PCP - General Family Medicine 09/15/13
--- OUTSIDE RECORDS SUMMARY | 2025-02-10 15:48 | XMS_ITS | Encounter Summary ---
Author Organization [employer] Address [address] [place] [address] [address] [place] [address] Care Team Providers Care Top Precipitator Operator Helper Name Role Phone Otilia Quiñones MD Primary Care Provider [phone] Encounter Details Date Type Department Care Team (Latest Contact Info) Description 08/11/2020 Abstract [facility] CONVERSIONS Dental, Provider, DDS Social [...] Care Team ( st Contact Info) Description 02/17/2025 10:30 AM EDT Office [facility] [address] [place] [address] Yoshi Sandoval, DMD [address] [place], [place] 03/24/2025 11:00 AM EDT Office Visit [facility] [address] [place] [address] Xavier Ng, DMD [address] [place], [place] documented as of this encounter Visit Diagnoses Not on filedocumented in this encounter Care Teams Top Precipitator Operator Helper Relationship Specialty Start Date End Date Otilia Quiñones MD [address] [place] [address] PCP - General Family Medicine 09/15/13 documented as of this encounter
--- OUTSIDE RECORDS SUMMARY | 2025-02-10 15:48 | XMS_ITS | Encounter Summary ---
Author Organization [employer] Address [address] [place] [address] 7 [place] [address] Care Team Providers Care Wine Steward Name Role Phone Otilia Quiñones MD Primary Care Provider [phone] Reason for Visit * Reason Onset Date Comments Chart Prep 02/09/2025 Encounter Details Date Type Department Care Team ([facility] st Contact Info) Description 02/09/2025 Telephone [facility] MED & PEDS [address] [place] [address] Otilia Quiñones MD [address] [place], [place] [phone] Chart Prep Social History Tobacco Use Types Packs/Day Years [...] AM EDT documented as of this encounter Miscellaneous Notes * Telephone Encounter - Andreina Rodriguez [place] - 02/09/2025 9:17 AM EDT Chart Prep Labs: done Images: appt pending Referrals: appointment pending Vaccines due: Hep B Screenings: colonoscopy and LMP Overdue care gaps: SBIRT, SDOH, PHQ-9, Disability screen, and Tobacco documented in this encounter Plan of Treatment Upcoming Encounters Date Type Department Care Team (Late st Contact Info) Description 02/17/2025 10:30 AM EDT Office Visit [facility] ADULT DENTAL [address] [place] [address] Yoshi Sandoval, DMD [address] [place] [address] 03/24/2025 11:00 AM EDT Office Visit [facility] ADULT DENTAL [address] [place] [address] Xavier Ng, DMD [address] [place] [address] documented as of this encounter Visit Diagnoses Not on filedocumented in this encounter Additional Health Concerns Assessment Noted Time PHQ-9 Depression Total Score: 0 07/03/19 24 10:45 AM EST documented as of this encounter Care Teams Wine Steward Relationship Specialty Start Date End Date Otilia Quiñones MD [address] [place] [address] PCP - General Family Medicine 09/15/13 documented as of this encounter
--- OUTSIDE RECORDS SUMMARY | 2025-02-10 15:48 | XMS_ITS | Encounter Summary ---
Author Organization [employer] Address [address] [facility] 7t [place] [address] Care Team Providers Care Pack Operator Name Role Phone Otilia Quiñones MD Primary Care Provider [phone] Encounter Details Date Type Department Care Team (Late st Contact Info) Description 03/28/2023 Abstract [facility] MEDICINE [address] [place] [address] Otilia Quiñones MD [address] [place], [place] [phone] Social History Tobacco Use Types Packs/Day Years [...] 10:30 AM EDT Office Visit [facility] ADULT DENTAL [address] [place] [address] Yoshi Sandoval, DMD [address] [place] [address] 03/24/2025 11:00 AM EDT Office Visit [facility] ADULT [facility] [address] [place] [address] Xavier Ng, DMD 505 [place] [address] documented as of this encounter Visit Diagnoses Not on filedocumented in this encounter Care Teams Pack Operator Relationship Specialty Start Date End Date Otilia Quiñones MD [address] [place] [address] PCP - General Family Medicine 09/15/13 documented as of this encounter
--- OUTSIDE RECORDS SUMMARY | 2025-02-10 15:48 | XMS_ITS | Encounter Summary ---
Author Organization [employer] Address [address] [place] [address] 7 [place] [address] Care Team Providers Care Natural Resources Manager Name Role Phone Otilia Quiñones MD Primary Care Provider [phone] Encounter Details Date Type Department Care Team (Latest Contact Info) Description 08/25/2021 Abstract [facility] CONVERSIONS Dental, Provider, DDS Social [...] Description 02/17/2025 10:30 AM EDT Office Visit [facility] ADULT DENTAL [address] [place] [address] Yoshi Sandoval, DMD [address] [place], [place] 03/24/2025 11:00 AM EDT Office Visit [facility] ADULT [facility] [address] [place] [address] Xavier Ng, DMD [address] [place], [place] documented as of this encounter Visit Diagnoses Not on filedocumented in this encounter Care Teams Natural Resources Manager Relationship Specialty Start Date End Date Otilia Quiñones MD [address] [place] [address] PCP - General Family Medicine 09/15/13 documented as of this encounter
--- OUTSIDE RECORDS SUMMARY | 2025-02-10 15:48 | XMS_ITS | Encounter Summary ---
Author Organization [employer] Address [address] [facility] 7t [place] [address] Care Team Providers Care Aging Department Supervisor Name Role Phone Otilia Quiñones MD Primary Care Provider [phone] Reason for Visit * Reason Comments Med Refill Encounter Details Date Type Department Care Team ([facility] Contact Info) Description 11/22/2023 Refill [facility] CHC MED & PEDS [address] [place] [address] Otilia Quiñones MD [address] [place] [address] Social History Tobacco Use Types Packs/Day Years [...] Description 02/17/2025 10:30 AM EDT Office Visit [facility] ADULT DENTAL [address] [place] [address] Yoshi Sandoval, DMD [address] [place] [address] 03/24/2025 11:00 AM EDT Office Visit [facility] ADULT [facility] [address] [place] [address] Xavier Ng, DMD [address] [place] [address] documented as of this encounter Visit Diagnoses Not on filedocumented in this encounter Additional Health Concerns Assessment Noted Time PHQ-9 Depression Total Score: 0 07/03/19 24 10:45 AM EST documented as of this encounter Care Teams Aging Department Supervisor Relationship Specialty Start Date End Date Otilia Quiñones MD [address] [place] [address] PCP - General Family Medicine 09/15/13 documented as of this encounter
--- OUTSIDE RECORDS SUMMARY | 2025-02-10 15:48 | XMS_ITS | Encounter Summary ---
Author Organization [employer] Address [address] [facility] 7t [place] [address] Care Team Providers Care Banquet Attendant Name Role Phone Otilia Quiñones MD Primary Care Provider [phone] Encounter Details Date Type Department Care Team ([facility] st Contact Info) Description 11/02/2024 Orders Only [facility] CHC MED & PEDS [address] [place], [place] [phone] Henrique Whittaker MD [address] [place], [place] [phone] RBC microcytosis (Primary Dx); Generalized abdominal pain Social History [...] Description 02/17/2025 10:30 AM EDT Office Visit [facility] [address] [place] [address] Yoshi Sandoval, DMD [address] [place] [address] 03/24/2025 11:00 AM EDT Office Visit [facility] [address] [place] [address] Xavier Ng, DMD [address] [place] [address] Scheduled Orders Name Type Priority Associated Diagnoses Orde r Schedule CBC auto differential Lab Routine RBC microcytosis Expected: 11/03/2024 (Approximate), Expires: 11/03/2025 documented as of this encounter Procedures Procedure Name Priority Date/Time Associated Diagnosis Comments IRON AND TOTAL IRON BINDING CAPACITY Routine 11/03/2024 1:29 PM EDT RBC microcytosis FERRITIN Routine 11/03/2024 1:29 PM EDT RBC microcytosis documented in this encounter Results * Ferritin (11/03/2024 1:29 PM EDT) Ferritin 18 10 - 250 ng/mL [facility] Blood Venous blood specimen / Unknown 11/03/2024 1:29 PM EDT 11/03/2024 2:45 PM EDT us Henrique Whittaker MD LAB BLOOD ORDERABLES Final Result Performing Organization Address [facility] Co de Phone Number [facility] [address] [place] [phone] [phone] * (ABNORMAL) Iron And Total Iron Binding Capacity (11/03/2024 1:29 PM EDT) Iron 17(L) 30 - 160 mcg/dL [facility] Total Iron Binding Capacity 268 228 - 428 mcg/dL [facility] Percent Iron Saturation 6(L) 15 - 50 % [facility] Unsaturated Iron Binding 251 ug/dL [facility] Blood Venous blood specimen / Unknown 11/03/2024 1:29 PM EDT 11/03/2024 2:45 PM EDT us Henrique Whittaker MD LAB BLOOD ORDERABLES Final Result Performing Organization Address [facility] de Phone Number [facility] [address] [place] [phone] documented in this encounter Visit Diagnoses Diagnosis RBC microcytosis- Primary Generalized abdominal pain Abdominal pain, generalized documented in this encounter Additional Health Concerns Assessment Noted Time PHQ-9 Depression Total Score: 0 07/03/19 24 10:45 AM EST documented as of this encounter Care Teams Banquet Attendant Relationship Specialty Start Date End Date Otilia Quiñones MD [address] [place] [address] PCP - General Family Medicine 09/15/13 documented as of this encounter
[2025-02-11 22:39] LABS: Antibody to SS-A Antigen <1.0 NEG AI (<1.0 NEG); Antibody to SS-B Antigen <1.0 NEG AI (<1.0 NEG)
== END 2025-02-10 12:47 | disposition home or self-care (01) ==
LOC: HO.CHCLDS 12:46
PROVIDERS: Visit Provider Pediatrics
DX: L30.9 Dermatitis, unspecified (principal); J02.9 Acute pharyngitis, unspecified
CPT/HCPCS: 36415; 85025; 86235; 87070; 87147

== ENCOUNTER 2025-02-17 10:52 | Emergency (ER) | payer MEDICAID, SELFPAY ==
--- NOTE | ~2025-02-17 | XR_ITS ---
EXAMINATION: XR CHEST CLINICAL INFORMATION: chest pain COMPARISON: 04/16/2024 TECHNIQUE: 2 views of the chest were obtained. FINDINGS: No significant abnormality is noted involving the heart, lungs, mediastinum, bony thorax or soft tissues. XR/XR chest 2V IMPRESSION: No acute disease Electronically signed by: Kevin Rivera MD 02/17/2025 11:15 AM EDT RP
--- NOTE | ~2025-02-17 | CT_ITS ---
EXAMINATION: CT SOFT TISSUE NECK WITH CONTRAST CLINICAL INFORMATION: Neck pain, unspecified. COMPARISON: None available. TECHNIQUE: Following the intravenous administration of 100 mL of Omnipaque 350 intravenous contrast, helical imaging was performed in the axial plane with generation of coronal and sagittal reformatted images. This CT examination was performed using dose optimization techniques as appropriate, variously including the following: *Automated exposure control *Adjustment of mA and/or kV according to patient size (this includes techniques or standardized protocols for targeted exams where dose is matched to indication/reason for exam; i.e. extremities or head) *Use of iterative reconstruction technique FINDINGS: Lymph Nodes: -Normal. There is no abnormal lymphadenopathy. Carotid Sheath Structures: -Normal. Salivary Glands: -Normal. Tongue Base/Floor of Mouth: -Normal. Mucosal Space: -Normal. No discrete abnormal enhancement or mass. Visceral Space: -Thyroid gland: Globally enlarged, without discrete dominant nodule seen. -Subglottic trachea is normal. -Larynx is normal. -Cervical esophagus is normal. Retropharangeal Space: -Normal. Parapharyngeal Fat Planes: -Normal. Mixer Blender Spaces: -Normal. Anterior Cervical Space: -Normal. Imaged Intracranial Contents: -No mass effect, edema, or abnormal enhancement. Cortical and dural venous sinuses are patent. The skull base is normal. Globes and Orbits: -Normal. Paranasal Sinuses/Mastoids/Tympanic Spaces: -Normally aerated bilaterally. Lung Apices and Superior Mediastinal Structures: -Superior mediastinal structures appear normal. -Imaged lung apices demonstrate mild biapical paraseptal emphysema. Lung apices are otherwise clear. Bony Structures: -No suspicious bone lesions. No fractures. -Very mild degenerative disc disease within the cervical spine. -Normal TM joints. CT/CT soft tissue neck w IV con IMPRESSION: 1. No acute findings within the neck. No mass, inflammation, or abnormal lymphadenopathy. 2. Global thyroid enlargement without discrete dominant nodule. Electronically signed by: Stan Boo MD 02/17/2025 01:09 PM EDT
--- NOTE | 2025-02-17 10:55 | ECG_ITS ---
Test Reason : chest pain Blood Pressure : */* mmHG Vent. Rate : 65 BPM Atrial Rate : 65 BPM P-R Int : 146 ms QRS Dur : 76 ms QT Int : 398 ms P-R-T Axes : 71 35 43 degrees QTcB Int : 413 ms Normal sinus rhythm Possible Left atrial enlargement Borderline ECG When compared with ECG of 23-Apr-2024 20:24, No significant change was found Referred By: Irina Clinton Electronically Signed By: CASEY GAVIN
[2025-02-17 11:24] VITALS: BMI 26.6
[2025-02-17 11:27] VITALS: BP 114/76; BP 117/72; PULSE 66; PULSE 73; RESP 16; O2SAT 100; O2SAT 95
--- NOTE | 2025-02-17 11:33 | ED_ITS ---
HPI - Chest Pain General Chief Complaint: Chest Pain Stated Complaint: chest pain Time Seen by Provider: 02/17/25 11:24 Source: patient and EMS Mode of arrival: EMS Limitations: no limitations History of Present Illness ED Provider: DR. Leger HPI narrative: this is a 49-year-old female came in for evaluation of neck pain and chest pain. Patient with anterior neck pain for almost a year seen by her PCP and also has been evaluated by Infectious Disease for chronic neck pain neck pain now is spreading to the whole entire leg pain is constant temporary no relieved by Tylenol or ibuprofen then rapidly come back, no fever, no chills, no recent trauma or fall, reviewing patient's labs for the patient rheumatoid factor with normal but positive for FREDERIC, patient came in today for 2 weeks of anterior chest pain that spent constant localized to the anterior chest no radiation to the shoulder or the neck or the jaw, no fever, no chills, no sick contacts, no recent trauma to the neck. Related Data Home Medications ?Medication ?Instructions ?Recorded ?Confirmed clonidine HCl 0.2 mg tablet 0.2 mg PO BEDTIME 11/16/24 11/16/24 Previous Rx's ?Medication ?Instructions ?Recorded omeprazole 40 mg capsule,delayed 40 mg PO DAILY #20 ca ps 04/24/24 release ondansetron 4 mg disintegrating 4 mg PO Q6-8H PRN naus ea and 04/24/24 tablet vomiting #7 tabs Allergies Allergy/AdvReac Type Severity Reaction Status Date / Time No Known Allergies (No Known Allergy Verified 02/17/25 11:26 Allergies*) Review of Systems 2 Review of Systems: All other systems are reviewed and are negative Constitutional: Reports as per HPI and Reports no additional constitutional complaints Eyes: Reports as per HPI and Reports no additional eye complaints Reports system reviewed and no additional complaints, except as documented Cardiovascular: Reports as per HPI and Reports no additional cardiovascular complaints Respiratory: Reports as per HPI and Reports no additional respiratory complaints Gastrointestinal: Reports as per HPI and Reports no additional gastrointestinal complaints Genitourinary: Reports no additional female genitourinary complaints Musculoskeletal: Reports no additional musculoskeletal complaints Skin/Breast: Reports system reviewed and no additional complaints, except as docu Psychiatric: Reports no additional psychiatric complaints Endocrine: Reports no additional endocrine complaints Hematologic/Lymphatic: Reports no additional hematologic/lymphatic complaints Allergic/Immunologic: Reports no additional allergic/immunologic complaints Reports system reviewed and no additional complaints, except as documented and Reports Abnormal speech present [facility] Past Medical History Medical History Throat pain Prolapsed hemorrhoids Bleeding hemorrhoids Smoker Anxiety Surgical History History of tubal ligation H/O section Family History Family History Maternal Grandmother Breast cancer Social History Social History Smoked in Last 30 Days: No Use of substances other than those prescribed or required for medical reasons: No Substance Use Type: Marijuana Advance Directives: No Advance Directives Information Provided: Yes Physical Exam 2 Vital Signs: Vital Signs: Last Vital Signs Pulse 66 02/17/25 11:27 Resp 16 02/17/25 11:27 BP 114/76 02/17/25 11:27 Pulse Ox 100 02/17/25 11:27 O2 Del Method Room Air 02/17/25 11:27 BMI result Body Mass Index 26.6 Vital signs have been reviewed and appear to be correct. Blood pressure elevated. Heart rate normal. Respiratory rate normal. Temperature normal. Oxygen saturation normal. Appearance: Alert. Oriented X3. No acute distress. Head: Normal external exam. Normocephalic. Atraumatic. No Kasper signs noted. No raccoon eyes noted Eyes: PERRLA. EOMI. Conjunctiva and sclera normal. Eyelids normal. ENT: TM's Normal. Pharynx normal. Uvula midline. Moist mucous membranes. No trismus noted. No drooling noted. No muffled voice noted. Neck: Normal inspection. Neck supple. FROM. No adenopathy. Thyroid Normal. No meningeal signs. No neck mass noted. CVS: Normal heart rate and rhythm. Heart sound normal. No murmurs noted. Pulses normal throughout. Respiratory: No respiratory distress. Painless inspiration. Breath sounds normal. No wheezes/rales/rhonchi noted. Chest nontender. No accessory muscle usage noted or decreased air movement noted. Abdomen: Soft and nontender. Bowel sounds normal in all 4 quadrants. No distention noted. No organomegaly noted. No visible injury noted. Back: No CVA tenderness. Full range of motion noted. Skin: Skin warm and dry. Normal skin color. Normal skin turgor. No rashes/lesions/lacerations noted. Extremities: No lower extremity edema. Extremities exhibit normal range of motion. Extremities nontender. Neuro: Oriented X 3. Cranial nerve exam: II-XII are grossly intact No motor deficit. No sensory deficit. Reflexes normal. Course Reevaluation(s) Reevaluation #1: Acute on chronic neck and chest pain, patient had a CT neck which was unremarkable for acute pathology or soft tissue problem, negative troponin and unremarkable EKG, no infectious process in the neck with negative strep pharyngitis and CT with IV contrast shows no soft tissue infection, no fever, no chills, total CPK is unremarkable. Patient will need to follow-up with PCP. Labs is unremarkable except for slight elevation of AST / ALT patient recently diagnosed with fatty liver infiltrate Which could explain the above findings. No acute emergency medical intervention is required at this point. Time: 13:21 Medications Administered Discontinued Medications Generic Name Dose Route Start Last Admin Trade Name Freq PRN Reason Stop Dose Admin Iohexol 100 ml 02/17/25 12:49 02/17/25 12:50 Iohexol 350 Mg/Ml 100 Ml Infus..Btl IV 02/17/25 12:50 70 ml ONCE ONE Administration Medical Decision Making Differential Diagnosis Differential Diagnoses: The differential diagnosis associated with the presentation includes ( Soft tissue neck infection, strep pharyngitis, neck mass, electrolyte derangement, severe anemia, rhabdomyolysis, ACS, pulmonary embolism.) Admission/Observation Consideration of admission/observation: Escalation of care including admission/observation considered Lab Data MDM Lab Attestation statement: I reviewed the patient's lab results. 02/17/25 11:40 02/17/25 11:40 Labs: Lab Results 02/17/25 Range/Units 11:40 WBC 3.5 L (4.8-10.8) X10*3/uL RBC 4.73 (4.20-5.50) X10*6/uL Hgb 12.0 (12.0-16.0) g/dl Hct 36.8 L (37.0-47.0) % MCV 77.8 L (80.0-98.0) fL MCH 25.4 L (27.0-33.0) pg MCHC 32.6 (31.0-35.0) g/dl RDW 13.0 (11.0-16.0) % Plt Count 172 (160-400) X10*3/uL MPV 10.8 (9.4-12.3) fL Immature Gran % (Auto) 0.3 (0.0-0.4) % Neut % (Auto) 48.0 (45-73) % Lymph % (Auto) 31.6 (20-40) % [place] % (Auto) 15.8 H (2-11) % Eos % (Auto) 3.7 (0-4) % Baso % (Auto) 0.6 (0-2) % Lymph # (Auto) 1.1 L (1.2-4.9) X10*3/uL [place] # (Auto) 0.6 (0.1-1.2) X10*3/uL Eos # (Auto) 0.1 (0.0-0.4) X10*3/uL Baso # (Auto) 0.0 (0.0-0.2) X10*3/uL Abs Immat Gran (auto) 0.01 (0.00-0.03) X10*3/uL Absolute Neuts (auto) 1.7 L (2.0-8.3) x10*3/uL Absolute Nucleated RBC 0.000 (0.0-0.012) X10*3/uL Nucleated RBC % (auto) 0.0 (0.0-0.2) /100WBC D-Dimer High Sensitivty 150 NG/ML Sodium 141 (135-145) mmol/L Potassium 4.4 D (3.3-5.1) mmol/L Chloride 110 H (96-108) mmol/L Carbon Dioxide 27 (22-29) mmol/L Anion Gap 8 L (12-20) BUN 10 (9-16) mg/dL Creatinine 0.54 (0.5-1.4) mg/dL Estim Creat Clear Calc 122.5 Estimated GFR > 60 Random Glucose 92 (60-115) mg/dL Calcium 9.2 (8.4-10.2) mg/dL Total Bilirubin 0.4 (0.0-1.0) mg/dL AST 35 H (5-31) U/L ALT 52 H (0-31) U/L Alkaline Phosphatase 76 (39-117) U/L Total Creatine Kinase 49 (26-140) U/L Troponin I High Sens < 2.7 (<3.5-17.0) ng/L Total Protein 6.4 L (6.5-8.0) g/dL Albumin 3.8 (3.5-5.0) g/dL S. pyogenes GrpA ABIGAIL Negative (Negative) Independent Interpretation I performed an independent interpretation of an: Plain X-Ray ( Chest: No acute disease.) and CT Scan ( Soft tissue neck with IV contrast:1. No acute findings within the neck. No mass, inflammation, or abnormal lymphadenopathy. 2. Global thyroid enlargement without discrete dominant nodule. ) Radiology Impression Discussion of test interpretation with radiology: I have reviewed the radiologist's reading. Discharge Plan Discharge Clinical Impression: Atypical chest pain, Chronic neck pain Patient Disposition: Home, Self-Care Instructions: Chest Pain (ED) Prescriptions: No Action omeprazole 40 mg capsule,delayed release(DR/EC) 40 mg PO DAILY Qty: 20 0RF ondansetron 4 mg tablet,disintegrating 4 mg PO Q6-8H PRN (Reason: nausea and vomiting) Qty: 7 0RF clonidine HCl 0.2 mg tablet 0.2 mg PO BEDTIME Referrals: Otilia Quiñones MD [Primary Care Provider, Medical] Print Language: Turkish
[2025-02-17 11:47] LABS: MANUAL DIFF FLAG NO
[2025-02-17 11:50] LABS: Hematocrit 36.8 % (37.0-47.0); Hemoglobin 12.0 g/dl (12.0-16.0); Imm Gran Abs Auto 0.01 X10*3/uL (0.00-0.03); Imm Gran Pct Auto 0.3 % (0.0-0.4); Lymphocytes Absolute Auto 1.1 X10*3/uL (1.2-4.9); Mean Corpuscular HGB Conc 32.6 g/dl (31.0-35.0); Mean Corpuscular Hemoglobin 25.4 pg (27.0-33.0); Mean Corpuscular Volume 77.8 fL (80.0-98.0); NRBC Abs Auto 0.000 X10*3/uL (0.0-0.012); NRBC Pct Auto 0.0 /100WBC (0.0-0.2); Platelet Count 172 X10*3/uL (160-400); Red Blood Count 4.73 X10*6/uL (4.20-5.50); White Blood Count 3.5 X10*3/uL (4.8-10.8)
[2025-02-17 11:57] LABS: D Dimer High Sensitivity 150 NG/ML
[2025-02-17 12:04] LABS: Alanine Aminotransferase 52 U/L (0-31); Albumin Level 3.8 g/dL (3.5-5.0); Alkaline Phosphatase 76 U/L (39-117); Anion Gap 8 (12-20); Aspartate Amino Transferase 35 U/L (5-31); Blood Urea Nitrogen 10 mg/dL (9-16); Calcium 9.2 mg/dL (8.4-10.2); Carbon Dioxide 27 mmol/L (22-29); Chloride 110 mmol/L (96-108); Creatinine Clr Calc Pharmacy 122.5; Estimated Glomerular Filt Rate > 60; Potassium 4.4 mmol/L (3.3-5.1); Sodium 141 mmol/L (135-145); Total Protein 6.4 g/dL (6.5-8.0)
[2025-02-17 12:11] LABS: Troponin-I High Sensitivity < 2.7 ng/L (<3.5-17.0)
[2025-02-17] MEDS: iohexoL 350 MG/ML 100 ML INFUS..BTL IV (12:50)
[2025-02-17 12:55] LABS: IDNOW Serial# 152EDE1D; Strep A Nucleic Acid Negative (Negative)
[2025-02-17 13:57] VITALS: BP 114/76; PULSE 66; RESP 16; TEMP 37.1; O2SAT 100
--- OUTSIDE RECORDS SUMMARY | 2025-02-17 15:24 | XMS_ITS | Clinical Summary ---
Author Organization [employer] Address [address] [facility] [address] [place] [address] Care Team Providers Care Social Media Senior Associate Name Role Phone Otilia Quiñones MD Primary Care Provider [phone] Allergies No known active allergies Medications hydrOXYzine [...] crush, chew, or split. 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 Will refill her weekly dose. Prolapsed hemorrhoids 03/04/2018 Encounters Date Type Department Care Team Description 02/17/2025 Results Follow-Up [facility] [address] [place] [address] Otilia uQiñones MD CT Soft Tissue Neck w/ Contrast 02/17/2025 Orders Only [facility] External Provider, [facility] 02/12/2025 Results Follow-Up [facility] [address] [place] [address] Otilia Quiñones MD CBC auto differential, Sjogren's Antibodies (SS-A,SS-B), POCT Rapid Strep A OSOM, Culture, Throat 02/10/2025 11:30 AM EDT Office Visit [facility] [address] [place] [address] Otilia Quiñones MD Dermatitis (Primary Dx); Iron deficiency anemia, unspecified iron deficiency anemia type; Palpitations; Sore throat 02/10/2025 Travel 02/09/2025 Telephone [facility] [address] [place] [address] Otilia Quiñones MD Chart Prep 02/03/2025 9:30 AM EDT Office Visit [facility] ADULT DENTAL [address] [place] [address] Yoshi Sandoval DMD Partial edentulism, unspecified edentulism class (Primary Dx) 02/02/2025 1:00 PM EDT Office Visit [facility] [address] [place] [address] Yoshi Sandoval DMD Dental caries (Primary Dx) 01/28/2025 Refill [facility] [address] [place] [address] Henrique Whittaker MD RBC microcytosis 01/12/2025 11:00 AM EDT Office Visit [facility] AD[facility] [address] [place] [address] Yoshi Sandoval DMD Dental caries (Primary Dx); History of tooth extraction, unspecified edentulism class 12/10/2024 11:00 AM EDT Office Visit [facility] [address] [place] [address] Otilia Quiñones MD Helicobacter pylori infection (Primary [...] Care Team (Late st Contact Info) Description 03/24/2025 11:00 AM EDT Office Visit [facility] [address] [place] [address] Xavier Ng, JUDI [address] [place] [address] Health Maintenance Due Date Last Done Comments [...] 02/10/2026 02/10/2025 Depression Screening 02/10/2026 02/10/2025, 07/03/19 24 Disability Screening 02/10/2026 02/10/2025 Tobacco Screening 02/10/2026 [...] Procedure Name Priority Date/Time Associated Diagnosis Comments CT SOFT TISSUE NECK W CONTRAST Routine 02/17/2025 12:31 PM EDT SJOGREN'S ANTIBODIES (SS-A,SS-B) Routine 02/10/2025 12:48 PM EDT Dermatitis CBC WITH AUTO DIFFERENTIAL Routine 02/10/2025 12:48 PM EDT Dermatitis POCT RAPID STREP A Routine 02/10/2025 12 :03 PM EDT Sore throat CULTURE, THROAT Routine 02/10/2025 11:55 AM EDT Sore throat CASE PRESENTATION, DETAILED AND [...] deficiency anemia, unspecified iron deficiency anemia type HEPATITIS C AB W/REFL TO HCV RNA, [...] Recently Relevant to Health Maintenance Results * CT Soft Tissue Neck w/ Contrast (02/17/2025 12:31 PM EDT) Anatomical Region Laterality Modality Head, Neck Computed Tomogra phy 02/17/2025 12:3 1 PM EDT Narrative 02/17/2025 1:12 PM EDT [place] [address] [address] Scan Report Signed Patient: Geovanna Hobbs MR#: [id number] 74 : 1975 Acct:[id number] Age/Sex: 49 / F ADM Date: 02/17/25 Loc: HO.ED Attending Dr: Ordering Physician: Tin Leger MD Date of Service: 02/17/25 Procedure(s): CT soft tissue neck w IV con Accession Number(s): [id number] cc: Otilia Quiñones MD; Tin Leger MD Report Number: [id number]: Total DLP = 406.00 mGy-cm Reason for Exam: neck pain EXAMINATION: CT SOFT TISSUE NECK WITH CONTRAST CLINICAL INFORMATION: Neck pain, unspecified. COMPARISON: None available. TECHNIQUE: Following the intravenous administration of 100 mL of Omnipaque 350 intravenous contrast, helical imaging was performed in the axial plane with generation of coronal and sagittal reformatted images. This CT examination was performed using dose optimization techniques as appropriate, variously including the following: *Automated exposure control *Adjustment of mA and/or kV according to patient size (this includes techniques or standardized protocols for targeted exams where dose is matched to indication/reason for exam; i.e. extremities or head) *Use of iterative reconstruction technique FINDINGS: Lymph Nodes: -Normal. There is no abnormal lymphadenopathy. Carotid Sheath Structures: -Normal. Salivary Glands: -Normal. Tongue Base/Floor of Mouth: -Normal. Mucosal Space: -Normal. No discrete abnormal enhancement or mass. Visceral Space: -Thyroid gland: Globally enlarged, without discrete dominant nodule seen. -Subglottic trachea is normal. -Larynx is normal. -Cervical esophagus is normal. Retropharangeal Space: -Normal. Parapharyngeal Fat Planes: -Normal. Adult Crossing Guard Spaces: -Normal. Anterior Cervical Space: -Normal. Imaged Intracranial Contents: -No mass effect, edema, or abnormal enhancement. Cortical and dural venous sinuses are patent. The skull base is normal. Globes and Orbits: -Normal. Paranasal Sinuses/Mastoids/Tympanic Spaces: -Normally aerated bilaterally. Lung Apices and Superior Mediastinal Structures: -Superior mediastinal structures appear normal. -Imaged lung apices demonstrate mild biapical paraseptal emphysema. Lung apices are otherwise clear. Bony Structures: -No suspicious bone lesions. No fractures. -Very mild degenerative disc disease within the cervical spine. -Normal TM joints. CT/CT soft tissue neck w IV con IMPRESSION: 1. No acute findings within the neck. No mass, inflammation, or abnormal lymphadenopathy. 2. Global thyroid enlargement without discrete dominant nodule. Electronically signed by: Stan Boo MD 02/17/2025 01:09 PM EDT RP Dictated By: Stan Boo MD Signed By: <Electronically signed by Stan Boo MD in OV> 02/17/25 1309 DD/ 1231 TD/TT: 02/17/25 1250 Specialized Language Instructor: Procedure Note Donotuseinterpreter, Image - 02/17/[address] [place] [address] [address] Scan Report Signed Patient: Geovanna HobbsMR#: [id number] 74 : 1975Acct:[id number] Age/Sex: 49 / FADM Date: 02/17/25 Loc: .ED Attending Dr: Ordering Physician: Tin Leger MD Date of Service: 02/17/25 Procedure(s): CT soft tissue neck w IV con Accession Number(s): [id number] cc: Otilia Quiñones MD; Tin Leger MD Report Number: [id number]: Total DLP = 406.00 mGy-cm Reason for Exam: neck pain EXAMINATION: CT SOFT TISSUE NECK WITH CONTRAST CLINICAL INFORMATION: Neck pain, unspecified. COMPARISON: None available. TECHNIQUE: Following the intravenous administration of 100 mL of Omnipaque 350 intravenous contrast, helical imaging was performed in the axial plane with generation of coronal and sagittal reformatted images. This CT examination was performed using dose optimization techniques as appropriate, variously including the following: *Automated exposure control *Adjustment of mA and/or kV according to patient size (this includes techniques or standardized protocols for targeted exams where dose is matched to indication/reason for exam; i.e. extremities or head) *Use of iterative reconstruction technique FINDINGS: Lymph Nodes: -Normal. There is no abnormal lymphadenopathy. Carotid Sheath Structures: -Normal. Salivary Glands: -Normal. Tongue Base/Floor of Mouth: -Normal. Mucosal Space: -Normal. No discrete abnormal enhancement or mass. Visceral Space: -Thyroid gland: Globally enlarged, without discrete dominant nodule seen. -Subglottic trachea is normal. -Larynx is normal. -Cervical esophagus is normal. Retropharangeal Space: -Normal. Parapharyngeal Fat Planes: -Normal. Adult Crossing Guard Spaces: -Normal. Anterior Cervical Space: -Normal. Imaged Intracranial Contents: -No mass effect, edema, or abnormal enhancement. Cortical and dural venous sinuses are patent. The skull base is normal. Globes and Orbits: -Normal. Paranasal Sinuses/Mastoids/Tympanic Spaces: -Normally aerated bilaterally. Lung Apices and Superior Mediastinal Structures: -Superior mediastinal structures appear normal. -Imaged lung apices demonstrate mild biapical paraseptal emphysema. Lung apices are otherwise clear. Bony Structures: -No suspicious bone lesions. No fractures. -Very mild degenerative disc disease within the cervical spine. -Normal TM joints. CT/CT soft tissue neck w IV con IMPRESSION: 1. No acute findings within the neck. No mass, inflammation, or abnormal lymphadenopathy. 2. Global thyroid enlargement without discrete dominant nodule. Electronically signed by: Stan Boo MD 02/17/2025 01:09 PM EDT Dictated By: Stan Boo MD Signed By: <Electronically signed by Stan Boo MD in OV> 02/17/25 1309 DD/ 1231 TD/TT: 02/17/25 1250 Specialized Language Instructor: [facility] External Provider IMG CT PROCEDURES Edited Result - Final * Sjogren's Antibodies (SS-A,SS-B) (02/10/2025 12:48 PM EDT) Sjogren's Antibody (SS-A) <1.0 NEG <1.0 NEG [facility] Sjogren's Antibody (SS-B) <1.0 NEG <1.0 NEG AI [facility] Comment:THIS TEST WAS PERFOR MED AT:[facility] [place] [id number] NASSAR MD 02/10/2025 12:4 8 PM EDT 02/10/2025 2:17 PM EDT us Otilia Quiñones MD LAB BLOOD ORDERABLES Final Re sult [facility] [address] [place] [address] [phone] * (ABNORMAL) CBC auto differential (02/10/2025 12:48 PM EDT) White Blood Count 4.4(L) 4.8 - 10.8 X10*3/uL [facility] Red Blood Count 4.85 4.20 - 5.50 X10*6/uL [facility] Hemoglobin 12.3 12.0 - 16.0 g/dl [facility] Hematocrit 37.2 37.0 - 47.0 % [facility] Mean Corpuscular Volume 76.7(L) 80.0 - 98.0 fL [facility] Mean Corpuscular Hemoglobin 25.4(L) 27.0 - 33.0 pg [facility] Mean Corpuscular HGB Conc 33.1 31.0 - 35.0 g/dl [facility] Red Cell Distribution Width 13.6 11.0 - 16.0 % [facility] Platelet Count 212 160 - 400 X10*3/uL [facility] Mean Platelet Volume 11.0 9.4 - 12.3 fL [facility] Neutrophils Percent Auto 56.0 45 - 73 % [facility] Imm Gran Pct Auto 0.2 0.0 - 0.4 % [facility] Lymphocytes Percent Auto 26.4 20 - 40 % [facility] Monocytes Percent Auto 14.0(H) 2 - 11 % [facility] Eosinophils Percent Auto 3.2 0 - 4 % [facility] Basophils Percent Auto 0.2 0 - 2 % [facility] NRBC Pct Auto 0.0 0.0 - 0.2 /100WBC [facility] Neutrophils Absolute Auto 2.4 2.0 - 8.3 x10*3/uL [facility] Imm Gran Abs Auto 0.01 0.00 - 0.03 X10*3/uL [facility] Lymphocytes Absolute Auto 1.2 1.2 - 4.9 X10*3/uL [facility] Monocytes Absolute Auto 0.6 0.1 - 1.2 X10*3/uL [facility] Eosinophils Absolute Auto 0.1 0.0 - 0.4 X10*3/uL [facility] Basophils Absolute Auto 0.0 0.0 - 0.2 X10*3/uL [facility] NRBC Abs Auto 0.000 0.0 - 0.012 X10*3/uL [facility] Blood Venous blood specimen / Unknown 02/10/2025 12:48 PM EDT 02/10/2025 2:23 PM EDT Otilia Quiñones MD LAB BLOOD ORDERABLES Final Re sult Performing Organization Address City/State/[facility] Co de Phone Number [facility] [address] [place] [phone] * POCT Rapid Strep A OSOM (02/10/2025 12:03 PM EDT) [facility] Rapid Strep A Screen Negative Negative, None Detected Swab 02/10/2025 12:0 3 PM EDT Otilia Quiñones MD POINT OF CARE TEST ENTER/EDIT ORDERABLES Final Result * Culture, Throat (02/10/2025 11:55 AM EDT) Throat Structure of anterior portion of neck / Unknown 02/10/2025 11:55 AM EDT 02/10/2025 2:18 PM EDT Comment:Throat Narrative [facility] - 02/12/2025 11:46 AM EDT Throat Culture No Group A Beta-hemolytic Streptococci isolated. Specimen Source: Throat Otilia Quiñones MD LAB MICROBIOLOGY - GENERAL OR DERABLES Final Result Performing Organization Address [facility] Co de Phone Number [facility] [address] [place] [phone] * Sed Rate by Modified Westergren (12/10/2024 11:24 AM EDT) Pathologist [facility] Erythrocyte Sedimentation Rate 9 0 - 20 MM/HR [facility] Comment:Patients with polycy themia and many hemoglobin abnormalitiesmay have depressed sed rates whereas patients with anemiamay have elevated sed rates. Blood Venous blood specimen / Unknown 12/10/2024 11:24 AM EDT 12/10/2024 3:46 PM EDT Otilia Quiñones MD LAB BLOOD ORDERABLES Final Re sult Performing Organization Address [facility] Co de Phone Number [facility] [address] [place] [phone] * Rheumatoid Factor (12/10/2024 11:24 AM EDT) [facility] Rheumatoid Factor <13.0 <15.0 IU/mL [facility] Blood Venous blood specimen / Unknown 12/10/2024 11:24 AM EDT 12/10/2024 3:44 PM EDT Otilia Quiñones MD LAB BLOOD ORDERABLES Final Re sult Performing Organization Address [facility] Co de Phone Number [facility] [address] [place] [phone] [phone] * (ABNORMAL) FREDERIC Screen,IFA, with Reflex to Titer and Pattern (12/10/2024 11:24 AM EDT) [facility] Anti Nuclear Antibody Screen POSITIVE (A) NEGATIVE [facility] Comment:FREDERIC IFA is a first l ine screen for detecting thepresence of up to approximately 150 autoantibodies invarious autoimmune diseases. A positive FREDERIC IFA resultis suggestive of autoimmune disease and reflexes totiter and pattern. Further laboratory testing may beconsidered if clinically indicated.For additional information, please refer tohttp://education.Curasight/faq/SOV707(This link is being provided for informational/educational purposes only.) FREDERIC Titer 1:80(A) titer [facility] Comment:A low level FREDERIC tite r may be present in pre-clinicalautoimmune diseases and normal individuals. Reference Range <1:40 Negative 1:40-1:80 Low Antibody Level >1:80 Elevated Antibody Level FREDERIC Pattern (A) [facility] Comment:Mitotic, Spindle Fib ers Abnormal Flag: AThe spindle fibers between the poles are stained inmitotic cells, associated with cone-shaped decorationof the mitotic poles. The pattern is rare in Sjogren'ssyndrome, systemic lupus erythematosus (SLE), andother connective tissue diseases.AC-25: Spindle FibersInternational Consensus on FREDERIC Patterns(https://doi.org/10.1515/djqs-2301-1936) FREDERIC TITER 2 (REF LAB) 1:80(A) titer [facility] Comment:A low level FREDERIC tite r may be present in pre-clinicalautoimmune diseases and normal individuals. Reference Range <1:40 Negative 1:40-1:80 Low Antibody Level >1:80 Elevated Antibody Level FREDERIC Pattern 2 Nuclear, Speckled (A) [facility] Comment:Speckled pattern is associated with mixed connectivetissue disease (MCTD), systemic lupus erythematosus(SLE), Sjogren's syndrome, dermatomyositis, andsystemic sclerosis/polymyositis overlap.AC-2,4,5,29: SpeckledInternational Consensus on FREDERIC Patterns(https://doi.org/10.1515/usru-9482-7824)THIS TEST WAS PERFORMED AT:[facility] [place] [id number] NASSAR MD FREDERIC TITER 3 TNP [facility] FREDERIC PATTERN 3 [facility] Blood Venous blood specimen / Unknown 12/10/2024 11:24 AM EDT 12/10/2024 3:46 PM EDT Otilia Quiñones MD LAB BLOOD ORDERABLES Final Re sult Performing Organization Address [facility]/ZIP Co de Phone Number [facility] [address] [place] [phone] * Ferritin (12/10/2024 11:24 AM EDT) Ferritin 45 10 - 250 ng/mL [facility] Blood Venous blood specimen / Unknown 12/10/2024 11:24 AM EDT 12/10/2024 3:46 PM EDT Otilia Quiñones MD LAB BLOOD ORDERABLES Final Re sult Performing Organization Address [facility] de Phone Number [facility] [address] [place] [phone] * Hepatitis C Antibody with Reflex to HCV, RNA, Quantitative, Real-Time PCR (10/15/2024 1:34 PM EDT) Pathologist [facility] Hepatitis C Antibody Nonreactive Nonreactive [facility] Comment:Antibodies to HCV no t detected; does not exclude early acuteHCV infection. Blood Venous blood specimen / Unknown 10/15/2024 1:34 PM EDT 10/15/2024 2:19 PM EDT Otilia Quiñones MD LAB BLOOD ORDERABLES Final Re sult Performing Organization Address [facility] Co de Phone Number [facility] [address] [place] [phone] * HIV-1/2 Antigen and Antibodies, Fourth Generation, with Reflexes (10/15/2024 1:34 PM EDT) HIV AB/AG Nonreactive Nonreactive [facility] Comment:HIV-1 p24 Ag and/or HIV-1/HIV-2 Ab not detected.A test result that is nonreactive does not exclude thepossibility of exposure to or infection with HIV-1 and/orHIV-2. Nonreactive results in this assay for individualswith prior exposure to HIV-1 and/or HIV-2 may be due toantigen and antibody levels that are below the limit ofdetection of this assay.The [employer]Track HIV Ag/Ab Combo assay result andsupplemental assay results should be interpreted inconjunction with the patient's clinical presentation,history and other laboratory results. If the results areinconsistent with clinical evidence, additional testing issuggested to confirm the result. Blood Venous blood specimen / Unknown 10/15/2024 1:34 PM EDT 10/15/2024 2:19 PM EDT us Otilia Quiñones MD LAB BLOOD ORDERABLES Final Re sult [facility] [address] [place] [phone] * BI Mammogram Diagnostic Tomosynthesis Bilateral (06/17/2024 11:18 AM EST) Anatomical Region Laterality Modality Breast Bilateral Mammography 06/17/2024 11:1 8 AM EST Narrative 06/17/2024 1:06 PM EST [address] [place] [address] Mammography Report Signed Patient: Geovanna Hobbs MR#: [id number] 74 : 1975 Acct:[id number] Age/Sex: 48 / F ADM Date: 06/17/24 Loc: NENA.ABENA Attending Dr: Yunier Bentley MD Ordering Physician: Yunier Bentley MD Results: 2Beni gn Findings Date of Service: 06/17/24 Follow Up: 1 Year From Orig ina Mammogram Procedure(s): MM tomosynthesis diagnostic BI Accession Number(s): [id number] cc: Otilia Quiñones MD; Mazzucco,Gabriel MD EXAMINATION: MM DIAGNOSTIC DIGITAL BREAST TOMOSYNTHESIS, [...] by: Criselda Jimenez DO 06/17/2024 01:03 PM [facility] Dictated By: Criselda Jimenez DO Signed By: <Electronically signed by Criselda Jimenez DO in OV> 06/17/24 1303 DD/ 1118 TD/TT: 06/17/24 1146 Specialized Language Instructor: Procedure Note Donotuseinterpreter, Image - 06/17/2024 [facility] [address] [place] [address] Mammography Report Signed Patient: Geovanna HobbsMR#: [id number] 74 : 1975Acct:[id number] Age/Sex: 48 / FADM Date: 06/17/24 Loc: HO.MAMMO Attending Dr: Yunier Bentley MD Ordering Physician: Yunier Bentley MDResults: 2Beni gn Findings Date of Service: 06/17/24Follow Up: 1 Year From Orig inal Mammogram Procedure(s): MM tomosynthesis diagnostic BI Accession Number(s): [id number] cc: Otilia Quiñones MD; Yunier Bentley MD [...] 06/17/24 1303 DD/ 1118 TD/TT: 06/17/24 1146 Specialized Language Instructor: [facility] External Provider IMG BI PROCEDURES Final [...] along with historic and current clinical information. Rn Documentation : SEE COMMENT [facility] Comment: BK,CT(ASCP) CT screening location: [address] Interpretation/R esult: Negative for intraepithelial lesion or malignancy. [facility] LMP: 06/03/2020 [facility] Prev. BX: NONE GIVEN [facility] Prev. PAP: NONE GIVEN [facility] Review Rn Documentation : SEE COMMENT [facility] Comment: SL, CT(ASCP) CT screening location: [address] [address] SOURCE: None given [facility] Statement Of Adequacy: SEE COMMENT [facility] Comment: Satisfactory for evaluation. Endocervical/transformation zone component absent. 08/02/2020 9:01 AM EST Thania Alvarez [facility] PATHOLOGY ORDERABLES Final Result [facility] [address] * HPV mRNA E6/E7 (08/02/2020 9:01 AM EST) HPV nRNA E6/E7 Not Detected Not Detected [facility] Comment: Methodology: Employee Benefits Manager-Mediated Amplification This assay detects E6/E7 viral messenger RNA (mRNA) from 14 high-risk HPV types (16,18,31,33,35,39,45,51,52,56,58,59,66,68). The analytical performance characteristics of this assay have been determined by [employer]. The modifications have not been cleared or approved by the FDA. This assay has been validated pursuant to the CLIA regulations and is used for clinical purposes. For additional information, please refer to http://education.Freespee/faq/MIE340k2 (This link if provided for information/ educational purposes only.) 08/02/2020 9:01 AM EST us Thania Rosakay CN LAB BLOOD ORDERABLES Kelly l Result [facility] [address] from Last 3 Months or Most Recently Relevant to Health Maintenance Insurance [facility] MEDICAID STAND ADULT Care Teams Social Media Senior Associate Relationship Specialty Start Date End Date Otilia Quiñones MD [address] [place] [phone] PCP - General Family Medicine 09/15/13
--- OUTSIDE RECORDS SUMMARY | 2025-02-17 15:24 | XMS_ITS | Encounter Summary ---
Author Organization [employer] Address [address] [facility] 7t [place] [address] Care Team Providers Care Supervisor Scrap Preparation Name Role Phone Otilia Quiñones MD Primary Care Provider [phone] Reason for Visit * Reason Comments Med Refill Encounter Details Date Type Department Care Team ([facility] Contact Info) Description 11/22/2023 Refill [facility] CHC MED & PEDS [address] [place] [address] Otilia Quiñones MD [address] [place], [place] [phone] Social History Tobacco Use Types Packs/Day Years [...] 11:00 AM EDT Office Visit [facility] ADULT DENTAL [address] [place] [address] Xavier Ng, JUDI 505 [place] [address] documented as of this encounter Visit Diagnoses Not on filedocumented in this encounter Additional Health Concerns Assessment Noted Time PHQ-9 Depression Total Score: 0 07/03/19 24 10:45 AM EST documented as of this encounter Care Teams Supervisor Scrap Preparation Relationship Specialty Start Date End Date Otilia Quiñones MD [address] [place] [address] PCP - General Family Medicine 09/15/13 documented as of this encounter
--- OUTSIDE RECORDS SUMMARY | 2025-02-17 15:24 | XMS_ITS | Encounter Summary ---
Author Organization [facility] [employer] Address 75 [facility] 7t [place] [address] Care Team Providers Care Analytic Programmer Name Role Phone Otilia Quiñones MD Primary Care Provider [phone] Encounter Details Date Type Department Care Team (Latest Contact Info) Description 08/11/2020 Abstract [facility] CONVERSIONS Dental, Provider, DDS Social History [...] Care Team ( st Contact Info) Description 03/24/2025 11:00 AM EDT Office Visit [facility] CHC ADULT DENTAL [address] [place] [address] Xavier Ng, DMD [address] [place] [address] documented as of this encounter Visit Diagnoses Not on filedocumented in this encounter Care Teams Analytic Programmer Relationship Specialty Start Date End Date Otilia Quiñones MD [address] [place] [address] PCP - General Family Medicine 09/15/13 documented as of this encounter
--- OUTSIDE RECORDS SUMMARY | 2025-02-17 15:24 | XMS_ITS | Encounter Summary ---
Author Organization [email or web address] Address 75 [facility] 7t [place] [address] Care Team Providers Care Molder Shoulder Pad Name Role Phone Otilia Quiñones MD Primary Care Provider [phone] Encounter Details Date Type Department Care Team ([facility] st Contact Info) Description 02/12/2025 Results Follow-Up [facility] CHC MED & PEDS [address] [place], [place] [phone] Otilia Quiñones MD 505 [place] [address] CBC auto differential, Sjogren's Antibodies (SS-A,SS-B), POCT Rapid Strep A OSOM, Culture, Throat Social History Tobacco Use Types Packs/Day Years [...] Description 03/24/2025 11:00 AM EDT Office Visit [facility] ADULT DENTAL [address] [place] [address] Xavier Ng, JUDI [address] [place] [address] documented as of this encounter Visit Diagnoses Not on filedocumented in this encounter Additional Health Concerns Assessment Noted Time PHQ-9 Depression Total Score: 0 07/03/19 24 10:45 AM EST documented as of this encounter Care Teams Molder Shoulder Pad Relationship Specialty Start Date End Date Otilia Quiñones MD 505 [place] [address] PCP - General Family Medicine 09/15/13 documented as of this encounter
--- OUTSIDE RECORDS SUMMARY | 2025-02-17 15:24 | XMS_ITS | Encounter Summary ---
Author Organization [facility] [employer] Address 75 [facility] 7t [place] [address] Care Team Providers Care Bag Sealer Name Role Phone Otilia Quiñones MD Primary Care Provider [phone] Encounter Details Date Type Department Care Team (Latest Contact Info) Description 08/25/2021 Abstract [facility] CONVERSIONS Dental, Provider, DDS Social History [...] Description 03/24/2025 11:00 AM EDT Office Visit [facility] CHC ADULT DENTAL [address] [place] [address] Xavier Ng, DMD 505 [place] [address] documented as of this encounter Visit Diagnoses Not on filedocumented in this encounter Care Teams Bag Sealer Relationship Specialty Start Date End Date Otilia Quiñones MD 505 [place] [address] PCP - General Family Medicine 09/15/13 documented as of this encounter
--- OUTSIDE RECORDS SUMMARY | 2025-02-17 15:24 | XMS_ITS | Encounter Summary ---
Author Organization [employer] Address 75 [facility] 7t [place] [address] Care Team Providers Care Diesel Truck Crane Operator Name Role Phone Otilia Quiñones MD Primary Care Provider [phone] Encounter Details Date Type Department Care Team ([facility] st Contact Info) Description 11/02/2024 Orders Only [facility] CHC MED & PEDS [address] [place], [place] [phone] Henrique Whittaker MD 505 [place], [place] [phone] RBC microcytosis (Primary Dx); Generalized abdominal pain [...] Description 03/24/2025 11:00 AM EDT Office Visit [facility] ADULT DENTAL [address] [place] [address] Xavier Ng, DMD [address] [place] [address] Scheduled Orders Name Type Priority Associated Diagnoses [...] EDT) Ferritin 18 10 - 250 ng/mL [facility] Blood Venous blood specimen / Unknown 11/03/2024 1:29 PM EDT 11/03/2024 2:45 PM EDT us Henrique Whittaker MD LAB BLOOD ORDERABLES Final Result [facility] [address] [place] [address] [phone] * (ABNORMAL) Iron And Total Iron Binding Capacity (11/03/2024 1:29 PM EDT) Iron 17(L) 30 - 160 mcg/dL [facility] Total Iron Binding Capacity 268 228 - 428 mcg/dL [facility] Percent Iron Saturation 6(L) 15 - 50 % [facility] Unsaturated Iron Binding 251 ug/dL [facility] Blood Venous blood specimen / Unknown 11/03/2024 1:29 PM EDT 11/03/2024 2:45 PM EDT us Henrique Whittaker MD LAB BLOOD ORDERABLES Final Result [facility] [address] [place] [address] [phone] documented in this encounter Visit Diagnoses Diagnosis RBC microcytosis- Primary Generalized abdominal pain Abdominal pain, generalized documented in this encounter Additional Health Concerns Assessment Noted Time PHQ-9 Depression Total Score: 0 07/03/19 24 10:45 AM EST documented as of this encounter Care Teams Diesel Truck Crane Operator Relationship Specialty Start Date End Date Otilia Quiñones MD [address] [place] [address] PCP - General Family Medicine 09/15/13 documented as of this encounter
--- OUTSIDE RECORDS SUMMARY | 2025-02-17 15:24 | XMS_ITS | Encounter Summary ---
Author Organization [employer] Address 75 [facility] 7t [place] [address] Care Team Providers Care Retail Loss Prevention Investigator Name Role Phone Otilia Quiñones MD Primary Care Provider [phone] Encounter Details Date Type Department Care Team (Late st Contact Info) Description 03/28/2023 Abstract [facility] MEDICINE [address] [place] [address] Otilia Quiñones MD [address] [facility] [address] [place], [place] [phone] Social History Tobacco Use Types Packs/Day Years [...] Description 03/24/2025 11:00 AM EDT Office Visit [facility] ADULT DENTAL [address] [place], [place] [phone] Xavier Ng, JUDI [address] [place] [address] documented as of this encounter Visit Diagnoses Not on filedocumented in this encounter Care Teams Retail Loss Prevention Investigator Relationship Specialty Start Date End Date Otilia Quiñones MD [address] [place] [address] PCP - General Family Medicine 09/15/13 documented as of this encounter
--- OUTSIDE RECORDS SUMMARY | 2025-02-17 15:25 | XMS_ITS | Encounter Summary ---
Author Organization [employer] Address [address] [facility] 7t [place] [address] Care Team Providers Care Head Start Director Name Role Phone Otilia Quiñones MD Primary Care Provider [phone] Encounter Details Date Type Department Care Team (Late st Contact Info) Description 02/17/2025 Orders Only [facility] External Provider, [facility] Social History Tobacco Use Types Packs/Day Years [...] Description 03/24/2025 11:00 AM EDT Office Visit [facility] ADULT DENTAL [address] [place] [address] aXvier Ng, DMD [address] [place] [address] documented as of this encounter Procedures Procedure Name Priority Date/Time Associated Diagnosis Comments CT SOFT TISSUE NECK W CONTRAST Routine 02/17/2025 12:31 PM EDT documented in this encounter Results * CT Soft Tissue Neck w/ Contrast (02/17/2025 12:31 PM EDT) Anatomical Region Laterality Modality Head, Neck Computed Tomogra phy 02/17/2025 12:3 1 PM EDT Narrative 02/17/2025 1:12 PM EDT [address] [address] [address] Scan Report Signed Patient: Geovanna Hobbs MR#: [id number] 74 : 1975 Acct:[id number] Age/Sex: 49 / F ADM Date: 02/17/25 Loc: HO.ED Attending Dr: Ordering Physician: Tin Leger MD Date of Service: 02/17/25 Procedure(s): CT soft tissue neck w IV con Accession Number(s): [id number] cc: Otilia Quiñones MD; Tin Leger MD Report Number: [id number]: Total DLP = 406.00 mGy-cm Reason for [...] Retropharangeal Space: -Normal. Parapharyngeal Fat Planes: -Normal. Hydrometer Tester Spaces: -Normal. Anterior Cervical Space: -Normal. Imaged [...] 02/17/25 1309 DD/ 1231 TD/TT: 02/17/25 1250 Pipe Coverer And Insulator: Procedure Note Donotuseinterpreter, Image - 02/17/[address] [address] [address] Scan Report Signed Patient: Geovanna HobbsMR#: [id number] 74 : 1975Acct:[id number] Age/Sex: 49 / FADM Date: 02/17/25 Loc: HO.ED Attending Dr: Ordering Physician: Tin Leger MD Date of Service: 02/17/25 Procedure(s): CT soft tissue neck w IV con Accession Number(s): [id number] cc: Otilia Quiñones MD; Tin Leger MD Report Number: [id number]: Total DLP = 406.00 mGy-cm Reason for [...] Retropharangeal Space: -Normal. Parapharyngeal Fat Planes: -Normal. Hydrometer Tester Spaces: -Normal. Anterior Cervical Space: -Normal. Imaged [...] 02/17/25 1309 DD/ 1231 TD/TT: 02/17/25 1250 Pipe Coverer And Insulator: [facility] External Provider IMG CT PROCEDURES Edited Result - Final documented in this encounter Visit Diagnoses Not on filedocumented in this encounter Additional Health Concerns Assessment Noted Time PHQ-9 Depression Total Score: 0 07/03/19 24 10:45 AM EST documented as of this encounter Care Teams Head Start Director Relationship Specialty Start Date End Date Otilia Quiñones MD [address] [place] [address] PCP - General Family Medicine 09/15/13 documented as of this encounter
--- OUTSIDE RECORDS SUMMARY | 2025-02-17 15:25 | XMS_ITS | Encounter Summary ---
Author Organization [employer] Address 75 [facility] 7t [place] [address] Care Team Providers Care Departmental Buyer Name Role Phone Otilia Quiñones MD Primary Care Provider [phone] Encounter Details Date Type Department Care Team ([facility] st Contact Info) Description 02/17/2025 Results Follow-Up [facility] CHC MED & PEDS [address] [place], [place] [phone] Otilia Quiñones MD [address] [place] [address] CT Soft Tissue Neck w/ Contrast Social History Tobacco Use Types Packs/Day Years [...] Description 03/24/2025 11:00 AM EDT Office Visit [facility] ADULT DENTAL [address] [place] [address] Xavier Ng, DMD [address] [place] [address] documented as of this encounter Visit Diagnoses Not on filedocumented in this encounter Additional Health Concerns Assessment Noted Time PHQ-9 Depression Total Score: 0 07/03/19 24 10:45 AM EST documented as of this encounter Care Teams Departmental Buyer Relationship Specialty Start Date End Date Otilia Quiñones MD [address] [place] [address] PCP - General Family Medicine 09/15/13 documented as of this encounter
== END 2025-02-17 13:58 | disposition home or self-care (01) ==
PROVIDERS: Physician Assistant Medical; Emergency Provider Emergency Medicine; PCP Pediatrics
DX: R07.89 Other chest pain (principal); M54.2 Cervicalgia; Z79.899 Other long term (current) drug therapy
CPT/HCPCS: 36415; 70491; 71046; 80053; 82550; 84484; 85025; 85379; 87651; 93005; 99285; Q9967

== ENCOUNTER → 2025-02-17 10:55 | Outpatient (BNV) | payer MEDICAID, SELFPAY | PROVIDERS: Emergency Provider Emergency Medicine; PCP Pediatrics; Visit Provider Radiology Diagnostic Radiology | DX: E04.9 Nontoxic goiter, unspecified (principal); R07.89 Other chest pain | CPT/HCPCS: 70491; 71046 ==

== ENCOUNTER → 2025-02-17 10:55 | Outpatient (BNV) | payer MEDICAID, SELFPAY | PROVIDERS: Emergency Provider Emergency Medicine; PCP Pediatrics; Visit Provider Internal Medicine | DX: R07.89 Other chest pain (principal) | CPT/HCPCS: 93010 ==

== ENCOUNTER 2025-03-05 12:48 | Outpatient (REF) | payer MEDICAID, SELFPAY ==
--- NOTE | ~2025-03-05 | CT_ITS ---
EXAMINATION: CT CHEST WITH CONTRAST CLINICAL INFORMATION: sob, fatigue, pulmonary nodules COMPARISON: Chest x-ray 02/17/2025 CT abdomen and pelvis March 08, 2013 and November 12, 2024 TECHNIQUE: Multidetector volumetric CT imaging of the chest was obtained after the administration of 65mL of Omnipaque 350 intravenous contrast without immediate adverse reactions. Axial MIP volume rendering provided. Sagittal and coronal reformatted images were obtained. This CT examination was performed using dose optimization techniques as appropriate, variously including the following: *Automated exposure control *Adjustment of mA and/or kV according to patient size (this includes techniques or standardized protocols for targeted exams where dose is matched to indication/reason for exam; i.e. extremities or head) *Use of iterative reconstruction technique FINDINGS: LUNGS: 2 mm calcified nodule is present in the posterior medial basal right lower lobe contacting diaphragm has been present since at least 2012. There is a 3 mm pulmonary nodule in the right middle lobe along the band of linear scarring that has been present since 2012. Peripheral blebs are present in the anteromedial lung apices. MEDIASTINUM: The mediastinum is normal. PLEURA: There is no pleural effusion. No pleural mass or thickening. AXILLA: No lymphadenopathy. UPPER ABDOMEN: Unremarkable OSSEOUS STRUCTURES: Unremarkable. CT/CT chest w IV con IMPRESSION: 2 pulmonary nodules are seen that are stable since at least 2012. No further follow-up is indicated. There are a few paraseptal blebs in the anteromedial lung apexes. Fleischner guidelines were followed. Electronically signed by: Kevin Rivera MD 03/05/2025 02:02 PM EDT
--- OUTSIDE RECORDS SUMMARY | 2025-03-05 13:17 | XMS_ITS | Encounter Summary ---
Author Organization [employer] Address 75 [facility] 7t [place] [address] Care Team Providers Care Research And Development Scientist Name Role Phone Otilia Quiñones MD Primary Care Provider [phone] Encounter Details Date Type Department Care Team ([facility] st Contact Info) Description 02/17/2025 Results Follow-Up [facility] CHC MED & PEDS [address] [place], [place] [phone] Otilia Quiñones MD 505 [place] [address] CT Soft Tissue Neck w/ Contrast Social [...] Care Team (Late st Contact Info) Description 03/09/2025 10:30 AM EDT Office Visit [facility] ADULT DENTAL [address] [place] [address] Yoshi Sandoval, DMD 505 [place] [address] 03/24/2025 11:00 AM EDT Office Visit [facility] ADULT DENTAL [address] [place] [address] Xavier Ng, DMD 505 [place] [address] documented as of this encounter Visit Diagnoses Not on filedocumented in this encounter Additional Health Concerns Assessment Noted Time PHQ-9 Depression Total Score: 0 07/03/19 24 10:45 AM EST documented as of this encounter Care Teams Research And Development Scientist Relationship Specialty Start Date End Date Otilia Quiñones MD [address] [place] [address] PCP - General Family Medicine 09/15/13 documented as of this encounter
--- OUTSIDE RECORDS SUMMARY | 2025-03-05 13:17 | XMS_ITS | Encounter Summary ---
Author Organization [employer] Address 75 [facility] 7t [place] [address] Care Team Providers Care Supervisor Cigar Making Machine Name Role Phone Otilia Quiñones MD Primary Care Provider [phone] Encounter Details Date Type Department Care Team ([facility] st Contact Info) Description 11/02/2024 Orders Only [facility] CHC MED & PEDS [address] [place], [place] [phone] Henrique Whittaker MD 505 [place], [place] [phone] RBC microcytosis (Primary Dx); Generalized abdominal pain [...] Description 03/09/2025 10:30 AM EDT Office Visit [facility] ADULT DENTAL [address] [place] [address] Yoshi Sandoval, DMD 505 [place] [address] 03/24/2025 11:00 AM EDT Office Visit [facility] ADULT DENTAL [address] [place] [address] Xavier Ng, DMD [address] [place] [address] Scheduled Orders Name Type Priority Associated Diagnoses [...] EDT) Ferritin 18 10 - 250 ng/mL [facility] Blood Venous blood specimen / Unknown 11/03/2024 1:29 PM EDT 11/03/2024 2:45 PM EDT us Henrique Whittaker MD LAB BLOOD ORDERABLES Final Result Performing Organization Address [facility] Co de Phone Number [facility] [address] [place] [address] [phone] * (ABNORMAL) Iron And Total Iron Binding Capacity (11/03/2024 1:29 PM EDT) Iron 17(L) 30 - 160 mcg/dL [facility] Total Iron Binding Capacity 268 228 - 428 mcg/dL [facility] Percent Iron Saturation 6(L) 15 - 50 % [facility] Unsaturated Iron Binding 251 ug/dL [facility] Blood Venous blood specimen / Unknown 11/03/2024 1:29 PM EDT 11/03/2024 2:45 PM EDT us Henrique Whittaker MD LAB BLOOD ORDERABLES Final Result Performing Organization Address [facility] de Phone Number [facility] [address] [place] [phone] documented in this encounter Visit Diagnoses Diagnosis RBC microcytosis- Primary Generalized abdominal pain Abdominal pain, generalized documented in this encounter Additional Health Concerns Assessment Noted Time PHQ-9 Depression Total Score: 0 07/03/19 24 10:45 AM EST documented as of this encounter Care Teams Supervisor Cigar Making Machine Relationship Specialty Start Date End Date Otilia Quiñones MD [address] [place] [address] PCP - General Family Medicine 09/15/13 documented as of this encounter
--- OUTSIDE RECORDS SUMMARY | 2025-03-05 13:17 | XMS_ITS | Encounter Summary ---
Author Organization [employer] Address [address] [place] [address] 7t [place] [address] Care Team Providers Care Parcel Post Carrier Name Role Phone Otilia Quiñones MD Primary Care Provider [phone] Encounter Details Date Type Department Care Team (Latest Contact Info) Description 08/25/2021 Abstract [facility] CONVERSIONS Dental, Provider, DDS [...] Care Team ( st Contact Info) Description 03/09/2025 10:30 AM EDT Office Visit [facility] ADULT DENTAL [address] [place] [address] Yoshi Sandoval, DMD [address] [place] [address] 03/24/2025 11:00 AM EDT Office Visit [facility] ADULT DENTAL [address] [place] [address] Xavier Ng, DMD [address] [place] [address] documented as of this encounter Visit Diagnoses Not on filedocumented in this encounter Care Teams Parcel Post Carrier Relationship Specialty Start Date End Date Otilia Quiñones MD [address] [place] [address] PCP - General Family Medicine 09/15/13 documented as of this encounter
--- OUTSIDE RECORDS SUMMARY | 2025-03-05 13:17 | XMS_ITS | Encounter Summary ---
Author Organization [employer] Address [address] [place] [address] 7t [place] [address] Care Team Providers Care Vacuum Frame Operator Name Role Phone Otilia Quiñones MD Primary Care Provider [phone] Encounter Details Date Type Department Care Team (Latest Contact Info) Description 08/11/2020 Abstract [facility] CONVERSIONS Dental, Provider, DDS Social History [...] Description 03/09/2025 10:30 AM EDT Office Visit [facility] ADULT DENTAL [address] [place] [address] Yoshi Sandoval, DMD [address] [place] [address] 03/24/2025 11:00 AM EDT Office Visit [facility] ADULT DENTAL [address] [place] [address] Xavier Ng, DMD [address] [place] [address] documented as of this encounter Visit Diagnoses Not on filedocumented in this encounter Care Teams Vacuum Frame Operator Relationship Specialty Start Date End Date Otilia Quiñones MD 505 [place] [address] PCP - General Family Medicine 09/15/13 documented as of this encounter
--- OUTSIDE RECORDS SUMMARY | 2025-03-05 13:17 | XMS_ITS | Encounter Summary ---
Author Organization [employer] Address 75 [facility] 7t [place] [address] Care Team Providers Care Barrel Waterer Name Role Phone Otilia Quiñones MD Primary Care Provider [phone] Reason for Visit * Reason Comments Med Refill Encounter Details Date Type Department Care Team ([facility] Contact Info[facility] Description 11/22/2023 Refill [facility] CHC MED & PEDS [address] [place] [address] Otilia Quiñones MD [address] [place], [place] [phone] Social History Tobacco Use Types Packs/Day Years [...] Description 03/09/2025 10:30 AM EDT Office Visit [facility] ADULT DENTAL [address] [place] [address] Yoshi Sandoval, DMD 505 [place] [address] 03/24/2025 11:00 AM EDT Office Visit [facility] ADULT DENTAL [address] [place] [address] Xavier Ng, DMD [address] [place] [address] documented as of this encounter Visit Diagnoses Not on filedocumented in this encounter Additional Health Concerns Assessment Noted Time PHQ-9 Depression Total Score: 0 07/03/19 24 10:45 AM EST documented as of this encounter Care Teams Barrel Waterer Relationship Specialty Start Date End Date Otilia Quiñones MD [address] [place] [address] PCP - General Family Medicine 09/15/13 documented as of this encounter
--- OUTSIDE RECORDS SUMMARY | 2025-03-05 13:17 | XMS_ITS | Clinical Summary ---
Author Organization [employer] Address [address] [facility] 7[address] [place] [address] Care Team Providers Care Band Scroll Saw Operator Name Role Phone Otilia Quiñones MD Primary Care Provider [phone] Allergies No known active allergies Medications hydrOXYzine HCl (Atarax) 25 MG tablet Take 1 tablet (25 mg) by mouth if needed at bedtime for itching. 1 tab to 2 tabs a day 60 tablet 3 3 Active Additional Information Patient not taking.Reported on 02/03/2025 omeprazole (PriLOSEC) [address] capsule Take 1 capsule by mouth Once per day. 4 Active bismuth subsalicylate (Pepto Bismol) 262 MG chewable tablet One tab po four times a day for 14 days 56 tablet 5 Active Additional Information Patient not taking.Reported on 02/03/2025 meloxicam (Mobic) 7.5 MG tablet Take 1 tablet (7.5 mg) by mouth Once per day. 30 tablet 3 5 026 Active Additional Information Patient not taking.Reported on 02/03/2025 cloNIDine (Catapres) 0.2 MG tablet Take 1 tab orally qhs 30 tablet 3 5 Active Ferrous Sulfate (iron) 325 (65 Fe) MG tabletIndications :RBC microcytosis TAKE ONE TABLET BY MOUTH EVERY DAY WITH BREAKFAST. DO NOT BREAK, CRUSH, DISSOLVE OR CHEW. 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 Will refill her weekly dose. Prolapsed hemorrhoids 03/04/2018 Encounters Date Type Department Care Team Description 02/17/2025 Results Follow-Up [facility] [address] [place] [address] Otilia Quiñones MD CT Soft Tissue Neck w/ Contrast 02/17/2025 Orders Only [facility] External Provider, [facility] 02/12/2025 Results Follow-Up [facility] [address] [place] [address] Otilia Quiñones MD CBC auto differential, Sjogren's Antibodies (SS-A,SS-B), POCT Rapid Strep A OSOM, Culture, Throat 02/10/2025 11:30 AM EDT Office Visit [facility] [address] [place] [address] Otilia Quiñones MD Dermatitis (Primary Dx); Iron deficiency anemia, unspecified iron deficiency anemia type; Palpitations; Sore throat 02/10/2025 Travel 02/09/[address] [facility] [address] [place] [address] Otilia Quiñones MD Chart Prep 02/03/2025 9:30 AM EDT Office Visit [facility] [address] [place] [address] Yoshi Sandoval DMD Partial edentulism, unspecified edentulism class (Primary Dx) 02/02/2025 1:00 PM EDT Office Visit [facility] [address] [place] [address] Yoshi Sandoval DMD Dental caries (Primary Dx) 01/28/[address] [facility] [address] [place] [address] Henrique Whittaker MD RBC microcytosis 01/12/2025 11:00 AM EDT Office Visit [facility] [address] [place] [address] Yoshi Sandoval DMD Dental caries (Primary Dx); History of tooth extraction, unspecified edentulism class 12/10/2024 11:00 AM EDT Office Visit [facility] [address] [place] [address] Otilia Quiñones MD Helicobacter pylori infection (Primary [...] Description 03/09/2025 10:30 AM EDT Office Visit [facility] [address] [place] [address] Yoshi Sandoval, DMD [address] [place] [address] 03/24/2025 11:00 AM EDT Office Visit [facility] [address] [place] [address] Xavier Ng, DMD [address] [place] [address] Health Maintenance Due Date Last Done Comments [...] history exists COVID-19 Vaccine ( - season) 2025 Influenza Vaccine (#1) 2025 Mammogram [...] PM EDT Narrative 02/17/2025 1:12 PM EDT [address] [address] [address] Scan Report Signed Patient: Geovanna Hobbs MR#: [id number] 73 : 1975 Acct:[id number] Age/Sex: 49 / F ADM Date: 02/17/25 Loc: HO.ED Attending Dr: Ordering Physician: Tin Leger MD Date of Service: 02/17/25 Procedure(s): CT soft tissue neck w IV con Accession Number(s): [id number] cc: Otilia Quiñones MD; Tin Leger MD Report Number: [id number]: Total DLP = 406.00 mGy-cm Reason for [...] Retropharangeal Space: -Normal. Parapharyngeal Fat Planes: -Normal. Supervisor Hand Workers Spaces: -Normal. Anterior Cervical Space: -Normal. Imaged [...] 02/17/25 1309 DD/ 1231 TD/TT: 02/17/25 1250 Digital Marketing Apprentice: Procedure Note Donotuseinterpreter, Image - 02/17/[address] [place] [address] [address] Scan Report Signed Patient: Geovanna HobbsMR#: [id number] 74 : 1975Acct:[id number] Age/Sex: 49 / FADM Date: 02/17/25 Loc: HO.ED Attending Dr: Ordering Physician: Tin Leger MD Date of Service: 02/17/25 Procedure(s): CT soft tissue neck w IV con Accession Number(s): [id number] cc: Otilia Quiñones MD; Tin Leger MD Report Number: [id number]: Total DLP = 406.00 mGy-cm Reason for [...] Retropharangeal Space: -Normal. Parapharyngeal Fat Planes: -Normal. Supervisor Hand Workers Spaces: -Normal. Anterior Cervical Space: -Normal. Imaged [...] 02/17/25 1309 DD/ 1231 TD/TT: 02/17/25 1250 Digital Marketing Apprentice: [facility] External Provider IMG CT PROCEDURES Edited Result - Final * Sjogren's Antibodies (SS-A,SS-B) (02/10/2025 12:48 PM EDT) Sjogren's Antibody (SS-A) <1.0 NEG <1.0 NEG [facility] Sjogren's Antibody (SS-B) <1.0 NEG <1.0 NEG AI [facility] Comment:THIS TEST WAS PERFOR MED AT:[facility] [place] [phone] NASSAR MD 02/10/2025 12:4 8 PM EDT 02/10/2025 2:17 PM EDT us Otilia Quiñones MD LAB BLOOD ORDERABLES Final Re sult [facility] [address] [place] [phone] [phone] * (ABNORMAL) CBC auto differential (02/10/2025 12:48 PM EDT) White Blood Count 4.4(L) 4.8 - 10.8 X10*3/uL [facility] Red Blood Count 4.85 4.20 - 5.50 X10*6/uL [facility] Hemoglobin 12.3 12.0 - 16.0 g/dl [facility] Hematocrit 37.2 37.0 - 47.0 % [facility] Mean Corpuscular Volume 76.7(L) 80.0 - 98.0 fL [facility] Mean Corpuscular Hemoglobin 25.4(L) 27.0 - 33.0 pg [facility] Mean Corpuscular HGB Conc 33.1 31.0 - 35.0 g/dl [facility] Red Cell Distribution Width 13.6 11.0 - 16.0 % [facility] Platelet Count 212 160 - 400 X10*3/uL [facility] Mean Platelet Volume 11.0 9.4 - 12.3 fL [facility] Neutrophils Percent Auto 56.0 45 - 73 % [facility] Imm Gran Pct Auto 0.2 0.0 - 0.4 % [facility] Lymphocytes Percent Auto 26.4 20 - 40 % [facility] Monocytes Percent Auto 14.0(H) 2 - 11 % [facility] Eosinophils Percent Auto 3.2 0 - 4 % [facility] Basophils Percent Auto 0.2 0 - 2 % [facility] NRBC Pct Auto 0.0 0.0 - 0.2 /100WBC [facility] Neutrophils Absolute Auto 2.4 2.0 - 8.3 x10*3/uL [facility] Imm Gran Abs Auto 0.01 0.00 - 0.03 X10*3/uL [facility] Lymphocytes Absolute Auto 1.2 1.2 - 4.9 X10*3/uL [facility] Monocytes Absolute Auto 0.6 0.1 - 1.2 X10*3/uL [facility] Eosinophils Absolute Auto 0.1 0.0 - 0.4 X10*3/uL [facility] Basophils Absolute Auto 0.0 0.0 - 0.2 X10*3/uL [facility] NRBC Abs Auto 0.000 0.0 - 0.012 X10*3/uL [facility] Blood Venous blood specimen / Unknown 02/10/2025 12:48 PM EDT 02/10/2025 2:23 PM EDT Otilia Quiñones MD LAB BLOOD ORDERABLES Final Re sult [facility] [address] [place] [phone] * POCT Rapid Strep A OSOM (02/10/2025 12:03 PM EDT) Pathologist [facility] [place] Rapid Strep A Screen Negative Negative, None Detected Swab 02/10/2025 12:0 3 PM EDT Otilia Quiñones MD POINT OF CARE TEST ENTER/EDIT ORDERABLES Final Result * Culture, Throat (02/10/2025 11:55 AM EDT) Throat Structure of anterior region of neck / Unknown 02/10/2025 11:55 AM EDT 02/10/2025 2:18 PM EDT Comment:Throat Narrative [facility] - 02/12/2025 11:46 AM EDT Throat Culture No Group A Beta-hemolytic Streptococci isolated. Specimen Source: Throat Otilia Quiñones MD LAB MICROBIOLOGY - GENERAL OR DERABLES Final Result Performing Organization Address [facility] Co de Phone Number [facility] [address] [place] [phone] * Sed Rate by Modified Westergren (12/10/2024 11:24 AM EDT) Pathologist [facility] [place] Erythrocyte Sedimentation Rate 9 0 - 20 MM/HR [facility] Comment:Patients with polycy themia and many hemoglobin abnormalitiesmay have depressed sed rates whereas patients with anemiamay have elevated sed rates. Blood Venous blood specimen / Unknown 12/10/2024 11:24 AM EDT 12/10/2024 3:46 PM EDT Otilia Quiñones MD LAB BLOOD ORDERABLES Final Re sult Performing Organization Address [facility] Co de Phone Number [facility] [address] [place] [phone] * Rheumatoid Factor (12/10/2024 11:24 AM EDT) [facility] Rheumatoid Factor <13.0 <15.0 IU/mL [facility] Blood Venous blood specimen / Unknown 12/10/2024 11:24 AM EDT 12/10/2024 3:44 PM EDT Otilia Quiñones MD LAB BLOOD ORDERABLES Final Re sult Performing Organization Address [facility] Co de Phone Number [facility] [address] [place] [phone] * (ABNORMAL) FREDERIC Screen,IFA, with Reflex to Titer and Pattern (12/10/2024 11:24 AM EDT) Pathologist [facility] [place] Anti Nuclear Antibody Screen POSITIVE (A) NEGATIVE [facility] Comment:FREDERIC IFA is a first l ine screen for detecting thepresence of up to approximately 150 autoantibodies invarious autoimmune diseases. A positive FREDERIC IFA resultis suggestive of autoimmune disease and reflexes totiter and pattern. Further laboratory testing may beconsidered if clinically indicated.For additional information, please refer tohttp://education.Bujbu/faq/SQM982(This link is being provided for informational/educational purposes only.) FREDERIC Titer 1:80(A) titer [facility] Comment:A low level FREDERIC tite r may be present in pre-clinicalautoimmune diseases and normal individuals. Reference Range <1:40 Negative 1:40-1:80 Low Antibody Level >1:80 Elevated Antibody Level FREDERIC Pattern (A) [facility] Comment:Mitotic, Spindle Fib ers Abnormal Flag: AThe spindle fibers between the poles are stained inmitotic cells, associated with cone-shaped decorationof the mitotic poles. The pattern is rare in Sjogren'ssyndrome, systemic lupus erythematosus (SLE), andother connective tissue diseases.AC-25: Spindle FibersInternational Consensus on FREDERIC Patterns(https://doi.org/10.1515/aayk-1689-8593) FREDERIC TITER 2 (REF LAB) 1:80(A) titer [facility] Comment:A low level FREDERIC tite r may be present in pre-clinicalautoimmune diseases and normal individuals. Reference Range <1:40 Negative 1:40-1:80 Low Antibody Level >1:80 Elevated Antibody Level FREDERIC Pattern 2 Nuclear, Speckled (A) [facility] Comment:Speckled pattern is associated with mixed connectivetissue disease (MCTD), systemic lupus erythematosus(SLE), Sjogren's syndrome, dermatomyositis, andsystemic sclerosis/polymyositis overlap.AC-2,4,5,29: SpeckledInternational Consensus on FREDERIC Patterns(https://doi.org/10.1515/xcke-3248-8959)THIS TEST WAS PERFORMED AT:[facility] [place] [phone] NASSAR MD FREDERIC TITER 3 TNP [facility] FREDERIC PATTERN 3 TNP [facility] Blood Venous blood specimen / Unknown 12/10/2024 11:24 AM EDT 12/10/2024 3:46 PM EDT us Otilia Quiñones MD LAB BLOOD ORDERABLES Final Re sult Performing Organization Address [facility] Co de Phone Number [facility] [address] [place] [phone] * Ferritin (12/10/2024 11:24 AM EDT) Ferritin 45 10 - 250 ng/mL [facility] Blood Venous blood specimen / Unknown 12/10/2024 11:24 AM EDT 12/10/2024 3:46 PM EDT us Otilia Quiñones MD LAB BLOOD ORDERABLES Final Re sult Performing Organization Address [facility] Co de Phone Number [facility] [address] [place] [phone] * Hepatitis C Antibody with Reflex to HCV, RNA, Quantitative, Real-Time PCR (10/15/2024 1:34 PM EDT) Pathologist [facility] [place] Hepatitis C Antibody Nonreactive Nonreactive [facility] Comment:Antibodies to HCV no t detected; does not exclude early acuteHCV infection. Blood Venous blood specimen / Unknown 10/15/2024 1:34 PM EDT 10/15/2024 2:19 PM EDT us Otilia Quiñones MD LAB BLOOD ORDERABLES Final Re sult Performing Organization Address [facility] Co de Phone Number [facility] [address] [place] [phone] * HIV-1/2 Antigen and Antibodies, Fourth Generation, with Reflexes (10/15/2024 1:34 PM EDT) Pathologist [facility] [place] HIV AB/AG Nonreactive Nonreactive [facility] Comment:HIV-1 p24 Ag and/or HIV-1/HIV-2 Ab not detected.A test result that is nonreactive does not exclude thepossibility of exposure to or infection with HIV-1 and/orHIV-2. Nonreactive results in this assay for individualswith prior exposure to HIV-1 and/or HIV-2 may be due toantigen and antibody levels that are below the limit ofdetection of this assay.The [place] [employer] HIV Ag/Ab Combo assay result andsupplemental assay results should be interpreted inconjunction with the patient's clinical presentation,history and other laboratory results. If the results areinconsistent with clinical evidence, additional testing issuggested to confirm the result. Blood Venous blood specimen / Unknown 10/15/2024 1:34 PM EDT 10/15/2024 2:19 PM EDT us Otilia Quiñones MD LAB BLOOD ORDERABLES Final Re sult [facility] [address] [place] [phone] * BI Mammogram Diagnostic Tomosynthesis Bilateral (06/17/2024 11:18 AM EST) Anatomical Region Laterality Modality Breast Bilateral Mammography 06/17/2024 11:1 8 AM EST Narrative 06/17/2024 1:06 PM EST [facility] [address] [place] [address] Mammography Report Signed Patient: Geovanna Hobbs MR#: [id number] 73 : 1975 Acct:[id number] Age/Sex: 48 / F ADM Date: 06/17/24 Loc: SUBHASH Attending Dr: Yunier Bentley MD Ordering Physician: Yunier Bentley MD Results: 2Beni gn Findings Date of Service: 06/17/24 Follow Up: 1 Year From Orig inal Mammogram Procedure(s): MM tomosynthesis diagnostic BI Accession Number(s): [id number] cc: Otilia Quiñones MD; Yunier Bentley MD [...] by: Criselda Jimenez DO 06/17/2024 01:03 PM [facility] Dictated By: Criselda Jimenez DO Signed By: <Electronically signed by Criselda Jimenez DO in OV> 06/17/24 1303 DD/ 1118 TD/TT: 06/17/24 1146 Digital Marketing Apprentice: Procedure Note Donotuseinterpreter, Image - 06/17/2024 [place] [facility] [address] [place] [address] Mammography Report Signed Patient: Geovanna HobbsMR#: [id number] 74 : 1975Acct:[id number] Age/Sex: 48 / FADM Date: 06/17/24 Loc: HO.MAMMO Attending Dr: Yunier Bentley MD Ordering Physician: Yunier Bentley MDResults: 2Beni gn Findings Date of Service: 06/17/24Follow Up: 1 Year From [facility] ina Mammogram Procedure(s): MM tomosynthesis diagnostic BI Accession Number(s): [id number] cc: Otilia Quiñones MD; Yunier Bentley MD [...] 06/17/24 1303 DD/ 1118 TD/TT: 06/17/24 1146 Digital Marketing Apprentice: [facility] External Provider IMG BI PROCEDURES [...] along with historic and current clinical information. Sales Agent Insurance : SEE COMMENT [facility] Comment: BK,CT(ASCP) CT screening location: [address] Interpretation/R esult: Negative for intraepithelial lesion or malignancy. [facility] LMP: 06/03/2020 [facility] Prev. BX: NONE GIVEN [facility] Prev. PAP: NONE GIVEN [facility] Review Sales Agent Insurance : SEE COMMENT [facility] Comment: SL, CT(ASCP) CT screening location: [address] [address] SOURCE: None given [facility] Statement Of Adequacy: SEE COMMENT [facility] Comment: Satisfactory for evaluation. Endocervical/transformation zone component absent. 08/02/2020 9:01 AM EST us Thania HORN LAB PATHOLOGY ORDERABLES Final Result [facility] [address] * HPV mRNA E6/E7 (08/02/2020 9:01 AM EST) HPV nRNA E6/E7 Not Detected Not Detected [facility] Comment: Methodology: Aluminum Shingle Roofer-Mediated Amplification This assay detects E6/E7 viral messenger RNA (mRNA) from 14 high-risk HPV types (16,18,31,33,35,39,45,51,52,56,58,59,66,68). The analytical performance characteristics of this assay have been determined by [employer]. The modifications have not been cleared or approved by the FDA. This assay has been validated pursuant to the CLIA regulations and is used for clinical purposes. For additional information, please refer to http://education.NTB Media.K[employer] Technologies/faq/YWH132x3 (This link if provided for information/ educational purposes only.) 08/02/2020 9:01 AM EST us Thania Alvarez CN LAB BLOOD ORDERABLES Kelly vicki Result [facility] [address] from Last 3 Months or Most Recently Relevant to Health Maintenance Insurance [facility] C3 DENTAL-[facility] MEDICAID STAND ADULT Care Teams Band Scroll Saw Operator Relationship Specialty Start Date End Date Otilia Quiñones MD [address] [place] [phone] PCP - General Family Medicine 09/15/13
--- OUTSIDE RECORDS SUMMARY | 2025-03-05 13:17 | XMS_ITS | Encounter Summary ---
Author Organization [employer] Address [address] [facility] [address] [place] [address] Care Team Providers Care Montessori Teacher Name Role Phone Otilia Quiñones MD Primary Care Provider Encounter Details Date Type Department Care Team (Late st Contact Info) Description 03/28/2023 Abstract [facility] [address] [place] [address] Otilia Quiñones MD [address] [facility] [address] [place], [place] [phone] Social History Tobacco Use Types Packs/Day Years [...] Description 03/09/2025 10:30 AM EDT Office Visit [facility] [address] [place] [address] Yoshi Sandoval, DMD [address] [place] [address] 03/24/2025 11:00 AM EDT Office Visit [facility] [address] [place] [address] Xavier Ng, DMD [address] [place] [address] documented as of this encounter Visit Diagnoses Not on filedocumented in this encounter Care Teams Montessori Teacher Relationship Specialty Start Date End Date Otilia Quiñones MD [address] [place] [address] PCP - General Family Medicine 09/15/13 documented as of this encounter
[2025-03-05] MEDS: iohexoL 350 MG/ML 100 ML INFUS..BTL IV (13:47)
== END 2025-03-05 12:49 | disposition home or self-care (01) ==
LOC: HO.CT 12:48
PROVIDERS: PCP Pediatrics; Visit Provider Pediatrics
DX: R91.1 Solitary pulmonary nodule (principal)
CPT/HCPCS: 71260; Q9967

== ENCOUNTER → 2025-03-05 12:50 | Outpatient (BNV) | payer MEDICAID, SELFPAY | PROVIDERS: PCP Pediatrics; Visit Provider Radiology Diagnostic Radiology | DX: R91.8 Other nonspecific abnormal finding of lung field (principal) | CPT/HCPCS: 71260 ==

== ENCOUNTER 2025-03-11 13:43 | Outpatient (REF) | payer MEDICAID, SELFPAY ==
[2025-03-11 14:31] LABS: MANUAL DIFF FLAG NO
[2025-03-11 14:35] LABS: Hematocrit 36.8 % (37.0-47.0); Hemoglobin 11.5 g/dl (12.0-16.0); Imm Gran Abs Auto 0.01 X10*3/uL (0.00-0.03); Imm Gran Pct Auto 0.2 % (0.0-0.4); Lymphocytes Absolute Auto 1.3 X10*3/uL (1.2-4.9); Mean Corpuscular HGB Conc 31.3 g/dl (31.0-35.0); Mean Corpuscular Hemoglobin 24.5 pg (27.0-33.0); Mean Corpuscular Volume 78.5 fL (80.0-98.0); NRBC Abs Auto 0.000 X10*3/uL (0.0-0.012); NRBC Pct Auto 0.0 /100WBC (0.0-0.2); Platelet Count 188 X10*3/uL (160-400); Red Blood Count 4.69 X10*6/uL (4.20-5.50); White Blood Count 4.9 X10*3/uL (4.8-10.8)
[2025-03-11 17:01] LABS: Alanine Aminotransferase 32 U/L (0-31); Albumin Level 3.8 g/dL (3.5-5.0); Alkaline Phosphatase 75 U/L (39-117); Anion Gap 10 (12-20); Aspartate Amino Transferase 26 U/L (5-31); Blood Urea Nitrogen 14 mg/dL (9-16); Calcium 9.6 mg/dL (8.4-10.2); Carbon Dioxide 27 mmol/L (22-29); Chloride 109 mmol/L (96-108); Estimated Glomerular Filt Rate > 60; Potassium 3.9 mmol/L (3.3-5.1); Sodium 142 mmol/L (135-145); Total Protein 6.6 g/dL (6.5-8.0)
[2025-03-11 17:54] LABS: Free T4 (Free Thyroxine) 3.12 ng/dL (0.71-1.85)
[2025-03-11 18:11] LABS: Microalbum/Creatinine Ratio Ur 4.7 ug/mg cr (<30)
[2025-03-15 00:19] LABS: TS Negative Control Passed; TS Panel A 0; TS Panel B 0; TS Positive Control Passed; TSpotTB Negative (Negative)
== END 2025-03-11 13:44 | disposition home or self-care (01) ==
LOC: HO.CHCLDS 13:43
PROVIDERS: Pediatrics; PCP Internal Medicine; Visit Provider Internal Medicine
DX: Z11.1 Encounter for screening for respiratory tuberculosis (principal); R60.0 Localized edema; D50.9 Iron deficiency anemia, unspecified
CPT/HCPCS: 36415; 80053; 82043; 82570; 84439; 84443; 85025; 86481; 87338

== ENCOUNTER 2025-03-19 13:41 | Outpatient (REF) | payer MEDICAID, SELFPAY ==
[2025-03-19 14:51] LABS: Reticulocytes Absolute 0.043 X10*6/uL (0.026-0.095)
[2025-03-19 15:11] LABS: INTERNATIONAL NORM RATIO 1.1 (0.9-1.1); Prothrombin Time 12.6 SEC (10.9-12.4)
--- OUTSIDE RECORDS SUMMARY | 2025-03-19 16:09 | XMS_ITS | Encounter Summary ---
Author Organization [employer] Address [address] [facility] 7t [place] [address] Care Team Providers Care Tobacco Packer Name Role Phone Otilia Quiñones MD Primary Care Provider [phone] Encounter Details Date Type Department Care Team (Latest Contact Info) Description 03/15/2025 Results Follow-Up [facility] MED & PEDS [address] [place] [address] Darling Toussaint, KATHRYN [address] [place] [address] Albumin, Random Urine W/Creatinine, Comprehensive Metabolic Panel, TSH W/Reflex to FT4, Additional followed-up results: 2 Social History Tobacco Use Types Packs/Day Years [...] encounter Miscellaneous Notes * Telephone Encounter - Darling Toussaint RN - 03/15/2025 2:17 PM EDT Placed call to pt regarding alb results. Pt informed of results and need for further testing as well as a referral to Endo for her overactive thyroid. Pt agrees with plan. * Telephone Encounter - Darling Toussaint RN - 03/15/2025 2:17 PM EDT ----- Message from Henrique Whittaker MD sent at 03/11/2025 9:12 PM EDT ----- Please call. Labs reviewed: 1) mildly elevated liver test. A workup will be ordered in an attempt to elucidate the cause. Patient is to avoid any hepatotoxic medication. 2) low TSH. A workup will also be ordered. Please look at the previous message regarding this result. 3) mild anemia. Further workup is also needed. Please find out if hide patient has any mucocutaneous bleeding. ----- Message ----- From: Estela Valente MA Sent: 03/09/2025 2:45 PM EDT To: Henrique Whittaker MD documented in this encounter Plan of Treatment Upcoming Encounters Date Type Department Care Team (Late st Contact Info) Description 03/22/2025 10:30 AM EDT Office Visit [facility] CHC ADULT DENTAL [address] [place] [address] Yoshi Sandoval, JUDI [address] [place] [address] documented as of this encounter Visit Diagnoses Not on filedocumented in this encounter Additional Health Concerns Assessment Noted Time PHQ-9 Depression Total Score: 0 07/03/19 24 10:45 AM EST documented as of this encounter Care Teams Tobacco Packer Relationship Specialty Start Date End Date Otilia Quiñones MD [address] [place] [address] PCP - General Family Medicine 09/15/13 documented as of this encounter
--- OUTSIDE RECORDS SUMMARY | 2025-03-19 16:09 | XMS_ITS | Encounter Summary ---
Author Organization [employer] Address [address] [facility] 7t [place] [address] Care Team Providers Care Internet Researcher Name Role Phone Otilia Quiñones MD Primary Care Provider [phone] Encounter Details Date Type Department Care Team (Late st Contact Info) Description 03/28/2023 Abstract [facility] MEDICINE [address] [place] [address] Otilia Quiñones MD [address] [place], [place] [phone] Social History Tobacco Use Types Packs/Day Years [...] Description 03/22/2025 10:30 AM EDT Office Visit [facility] ADULT DENTAL [address] [place] [address] Yoshi Sandoval, DMD [address] [place] [address] documented as of this encounter Visit Diagnoses Not on filedocumented in this encounter Care Teams Internet Researcher Relationship Specialty Start Date End Date Otilia Quiñones MD [address] [place] [address] PCP - General Family Medicine 09/15/13 documented as of this encounter
--- OUTSIDE RECORDS SUMMARY | 2025-03-19 16:09 | XMS_ITS | Encounter Summary ---
Author Organization [employer] Address [address] [place] [address] [place] [address] Care Team Providers Care Bottom Man Name Role Phone Otilia Quiñones MD Primary Care Provider [phone] Reason for Referral * Imaging (Routine) - Authorized Specialty Diagnoses / Procedures Referred By Marilynn t Referred To Contact Radiology Diagnoses Transaminitis Procedures US Abdomen Comp w elastography Henrique Whittaker MD [address] [place] [address] Phone: tel: fax: [address] Phone: tel: fax: Referral ID Status Reason Start Date Expiration Date V isits Requested Visits Authorized [id number] Authorized 03/11/2025 03/11/2026 1 1 * Consultation (Routine) - Authorized Specialty Diagnoses / Procedures Referred By Marilynn t Referred To Contact Endocrinology Diagnoses Hyperthyroidism Henrique Whittaker MD [address] [place] [address] Phone: tel: fax: [facility] Endocrinology [address] [place], [place] Phone: tel: fax: Referral ID Status Reason Start Date Expiration Date Visits Requested Visits Authorized [id number] Authorized Specialty Services Required 03/11/2025 03/11/2026 1 1 * Imaging (Urgent) - Authorized Specialty Diagnoses / Procedures Referred By Contac t Referred To Contact Radiology Diagnoses Hyperthyroidism Procedures NM Thyroid Uptake Stimulation Suppression Henrique Whittaker MD [address] [place] [address] Phone: tel: fax: [address] Phone: tel: fax: Referral ID Status Reason Start Date Expiration Date V isits Requested Visits Authorized [id number] Authorized 03/11/2025 03/11/2026 2 2 Encounter Details Date Type Department Care Team (Late st Contact Info) Description 03/11/2025 Orders Only [facility] CHC MED & PEDS [address] [place] [phone] Henrique Whittaker MD [address] [place] [address] Hyperthyroidism (Primary Dx); Transaminitis Social History Tobacco Use Types Packs/Day Years [...] Description 03/22/2025 10:30 AM EDT Office Visit [facility] ADULT DENTAL [address] [place] [address] Yoshi Sandoval, DMD [address] [place] [address] Scheduled Orders Name Type Priority Associated Diagnoses Orde r Schedule NM Thyroid Uptake Stimulation Suppression Imaging Urgent Hyperthyroidism Expected: 03/11/2025, Expires: 03/11/2026 TSI (Thyroid Stimulating Immunoglobulin) Lab Routine Hyperthyroidism Expected: 03/11/2025 (Approximate), Expires: 03/11/2026 TRAb (TSH Receptor Binding Antibody) Lab Routine Hyperthyroidism Expected: 03/11/2025 (Approximate), Expires: 03/11/2026 Iron And Total Iron Binding Capacity Lab Routine Transaminitis Expected: 03/11/2025, Expires: 03/11/2026 Ferritin Lab Routine Transaminitis Expected: 03/11/2025, Expires: 03/11/2026 Hepatitis B Surface Antibody, Qualitative Lab Routine Transaminitis Expected: 03/11/2025 (Approximate), Expires: 03/11/2026 US Abdomen Comp w elastography Imaging Routine Transaminitis Expected: 03/11/2025, Expires: 03/11/2026 Smooth Muscle Antibody with Reflex to Titer Lab Routine Transaminitis Expected: 03/11/2025 (Approximate), Expires: 03/11/2026 Immunoglobulins, Quantitative, IgA, IgG, IgM Lab Routine Transaminitis Expected: 03/11/2025 (Approximate), Expires: 03/11/2026 Ferritin Lab Routine Transaminitis Expected: 03/11/2025, Expires: 03/11/2026 Iron And Total Iron Binding Capacity Lab Routine Transaminitis Expected: 03/11/2025, Expires: 03/11/2026 Alpha 1 Antitrypsin Lab Routine Transaminitis Expected: 03/11/2025 (Approximate), Expires: 03/11/2026 Scheduled Referrals Name Type Priority Associated Diagnoses Order Schedule Referral to Endocrinology Outpatient Referral Routine Hyperthyroidism Expected: 03/11/2025 (Approximate), Expires: 03/11/2026 documented as of this encounter Procedures Procedure Name Priority Date/Time Associated Diagnosis Comments PROTHROMBIN TIME-INR Routine 03/19/2025 1:48 PM EDT Transaminitis RETICULOCYTE COUNT Routine 03/19/2025 1: 48 PM EDT Transaminitis documented in this encounter Results * (ABNORMAL) Prothrombin Time-INR (03/19/2025 1:48 PM EDT) Prothrombin Time 12.6(H) 10.9 - 12.4 SEC [facility] INTERNATIONAL NORM RATIO 1.1 0.9 - 1.1 [facility] Comment:INTERNATIONAL NORMAL IZED RATIO (INR) REFERENCE RANGES Reference RangeFor patients not on anticoagulant therapy: 0.9 - 1.1INR ranges for oral anticoagulanttherapy:For prevention and treatment of venous thrombosis and pulmonary embolism: 2.0 - 3.0For acute myocardial infarction with aspirin therapy: 2.0 - 3.0For acute myocardial infarction without aspirin therapy: 3.0 - 4.0For patients with mechanical prosthetic heart valves: 2.5 - 3.5 Blood Venous blood specimen / Unknown 03/19/2025 1:48 PM EDT 03/19/2025 2:38 PM EDT Henrique Whittaker MD LAB BLOOD ORDERABLES Final Result Performing Organization Address [facility] de Phone Number [facility] [address] [place] [address] [phone] * (ABNORMAL) Reticulocyte Count (03/19/2025 1:48 PM EDT) Reticulocytes Absolute 0.043 0.026 - 0.095 X10*6/uL [facility] Immature Retic Fraction 6.5 3.0 - 15.9 % [facility] Retic HGB Equivalent 26.2(L) 30.0 - 35.0 pg [facility] Reticulocyte Percent 1.0 0.5 - 1.8 % [facility] Blood Venous blood specimen / Unknown 03/19/2025 1:48 PM EDT 03/19/2025 2:38 PM EDT Henrique Whittaker MD LAB BLOOD ORDERABLES Final Result Performing Organization Address [facility] de Phone Number [facility] [address] [place] [address] [phone] documented in this encounter Visit Diagnoses Diagnosis Hyperthyroidism- Primary Thyrotoxicosis without mention of goiter or other cause, without mention of thyrotoxic crisis or storm Transaminitis Nonspecific elevation of levels of transaminase or lactic acid dehydrogenase (LDH) documented in this encounter Additional Health Concerns Assessment Noted Time PHQ-9 Depression Total Score: 0 07/03/19 24 10:45 AM EST documented as of this encounter Care Teams Bottom Man Relationship Specialty Start Date End Date Otilia Quiñones MD [address] [place] [address] PCP - General Family Medicine 09/15/13 documented as of this encounter
--- OUTSIDE RECORDS SUMMARY | 2025-03-19 16:09 | XMS_ITS | Encounter Summary ---
Author Organization [employer] Address [address] [place] [address] 7[address] [place] [address] Care Team Providers Care Coding Team Lead Name Role Phone Otilia Quiñones MD Primary Care Provider [phone] Encounter Details Date Type Department Care Team ([facility] st Contact Info) Description 11/02/2024 Orders Only [facility] CHC MED & PEDS [address] [place], [place] [phone] Henrique Whittaker MD [address] [place] [address] RBC microcytosis (Primary Dx); Generalized abdominal pain [...] Description 03/22/2025 10:30 AM EDT Office Visit [facility] AD[facility]ENTAL [address] [place] [address] Yoshi Sandoval, DMD [address] [place] [address] Scheduled Orders Name Type Priority Associated Diagnoses [...] EDT) Ferritin 18 10 - 250 ng/mL [facility] Blood Venous blood specimen / Unknown 11/03/2024 1:29 PM EDT 11/03/2024 2:45 PM EDT us Henrique Whittaker MD LAB BLOOD ORDERABLES Final Result [facility] [address] [place] [address] [phone] * (ABNORMAL) Iron And Total Iron Binding Capacity (11/03/2024 1:29 PM EDT) Iron 17(L) 30 - 160 mcg/dL [facility] Total Iron Binding Capacity 268 228 - 428 mcg/dL [facility] Percent Iron Saturation 6(L) 15 - 50 % [facility] Unsaturated Iron Binding 251 ug/dL [facility] Blood Venous blood specimen / Unknown 11/03/2024 1:29 PM EDT 11/03/2024 2:45 PM EDT us Henrique Whittaker MD LAB BLOOD ORDERABLES Final Result Performing Organization Address City/State/[facility] Co de Phone Number [facility] [address] [place] [address] [phone] documented in this encounter Visit Diagnoses Diagnosis RBC microcytosis- Primary Generalized abdominal pain Abdominal pain, generalized documented in this encounter Additional Health Concerns Assessment Noted Time PHQ-9 Depression Total Score: 0 07/03/19 24 10:45 AM EST documented as of this encounter Care Teams Coding Team Lead Relationship Specialty Start Date End Date Otilia Quiñones MD [address] [place] [address] PCP - General Family Medicine 09/15/13 documented as of this encounter
[2025-03-19 16:10] LABS: Iron 35 mcg/dL (30-160); Percent Iron Saturation 15 % (15-50); Total Iron Binding Capacity 241 mcg/dL (228-428); Unsaturated Iron Binding 206 ug/dL
--- OUTSIDE RECORDS SUMMARY | 2025-03-19 16:10 | XMS_ITS | Encounter Summary ---
Author Organization [employer] Address [address] [place] [address] [address] [place] [address] Care Team Providers Care Hogshead Builder Name Role Phone Otilia Quiñones MD Primary Care Provider [phone] Encounter Details Date Type Department Care Team ([facility] Contact Info) Description 02/17/2025 Results Follow-Up [facility] CHC MED & PEDS [address] [place], [place] [phone] Otilia Quiñones MD [address] [place] [address] CT Soft Tissue Neck w/ Contrast Social [...] Description 03/22/2025 10:30 AM EDT Office Visit [facility] ADULT DENTAL [address] [place] [address] Yoshi Sandoval, DMD [address] [place] [address] documented as of this encounter Visit Diagnoses Not on filedocumented in this encounter Additional Health Concerns Assessment Noted Time PHQ-9 Depression Total Score: 0 07/03/19 24 10:45 AM EST documented as of this encounter Care Teams Hogshead Builder Relationship Specialty Start Date End Date Otilia Quiñones MD [address] [place] [address] PCP - General Family Medicine 09/15/13 documented as of this encounter
--- OUTSIDE RECORDS SUMMARY | 2025-03-19 16:10 | XMS_ITS | Encounter Summary ---
Author Organization [employer] Address [address] [place] [address] [address] [place] [address] Care Team Providers Care Field Representative Name Role Phone Otilia Quiñones MD Primary Care Provider [phone] Reason for Visit * Reason Comments Med Refill Encounter Details Date Type Department Care Team ([facility] st Contact Info) Description 11/22/2023 Refill [facility] CHC MED & PEDS [address] [place], [place] [phone] Otilia Quiñones MD [address] [place], [place] [phone] Social History Tobacco Use Types Packs/Day Years [...] Upcoming Encounters Date Type Department Care Team ([facility] st Contact Info) Description 03/22/2025 10:30 AM EDT Office Visit [facility] ADULT DENTAL [address] [place] [address] Yoshi Sandoval, DMD [address] [place] [address] documented as of this encounter Visit Diagnoses Not on filedocumented in this encounter Additional Health Concerns Assessment Noted Time PHQ-9 Depression Total Score: 0 07/03/19 24 10:45 AM EST documented as of this encounter Care Teams Field Representative Relationship Specialty Start Date End Date Otilia Quiñones MD [address] [place] [address] PCP - General Family Medicine 09/15/13 documented as of this encounter
--- OUTSIDE RECORDS SUMMARY | 2025-03-19 16:10 | XMS_ITS | Encounter Summary ---
Author Organization [employer] Address [address] [place] [address] [address] [place] [address] Care Team Providers Care Asset Availability Leader Name Role Phone Otilia Quiñones MD Primary Care Provider [phone] Encounter Details Date Type Department Care Team (Latest Contact Info) Description 08/25/2021 Abstract [facility] CONVERSIONS Dental, Provider, DDS Social History Tobacco [...] Description 03/22/2025 10:30 AM EDT Office Visit [facility] CHC ADULT DENTAL [address] [place] [address] Yoshi Sandoval, DMD [address] [place] [address] documented as of this encounter Visit Diagnoses Not on filedocumented in this encounter Care Teams Asset Availability Leader Relationship Specialty Start Date End Date Otilia Quiñones MD [address] [place] [address] PCP - General Family Medicine 09/15/13 documented as of this encounter
--- OUTSIDE RECORDS SUMMARY | 2025-03-19 16:10 | XMS_ITS | Encounter Summary ---
Author Organization [employer] Address [address] [place] [address] 7 [place] [address] Care Team Providers Care Security Professional Name Role Phone Otilia Quiñones MD Primary Care Provider [phone] Encounter Details Date Type Department Care Team (Latest Contact Info) Description 08/11/2020 Abstract [facility] CONVERSIONS Dental, Provider, DDS Social [...] Description 03/22/2025 10:30 AM EDT Office Visit [facility] CHC ADULT DENTAL [address] [place] [address] Yoshi Sandoval, DMD [address] [place] [address] documented as of this encounter Visit Diagnoses Not on filedocumented in this encounter Care Teams Security Professional Relationship Specialty Start Date End Date Otilia Quiñones MD [address] [place] [address] PCP - General Family Medicine 09/15/13 documented as of this encounter
--- OUTSIDE RECORDS SUMMARY | 2025-03-19 16:10 | XMS_ITS | Clinical Summary ---
Author Organization [employer] Address [address] [facility] [address] [place] [address] Care Team Providers Care Intelligence Analyst Name Role Phone Otilia Quiñones MD Primary Care Provider [phone] Allergies No known active allergies Medications hydrOXYzine [...] Encounters Date Type Department Care Team Description 03/15/2025 Results Follow-Up [facility] [address] [place] [address] Darling Toussaint RN Albumin, Random Urine W/Creatinine, Comprehensive Metabolic Panel, TSH W/Reflex to FT4, Additional followed-up results: 2 03/11/2025 Orders Only [facility] [address] [place] [address] Henrique Whittaker MD Hyperthyroidism (Primary Dx); Transaminitis 03/11/2025 Orders Only [facility] [address] [place] [address] Henrique Whittaker MD 03/09/2025 1:20 PM EDT Office Visit [facility] [address] [place] [address] Henrique Whittaker MD Edema, lower extremity (Primary Dx); Sore throat 03/09/2025 10:30 AM EDT Office Visit [facility] [address] [place] [address] Yoshi Sandoval DMD Dental caries (Primary Dx); Gingivitis 03/09/2025 Travel 03/08/2025 Results Follow-Up [facility] [address] [place] [address] Linda Matthews, KATHRYN CT Chest w/ Contrast 02/17/2025 Results Follow-Up [facility] [address] [place] [address] Otilia Quiñones MD CT Soft Tissue Neck w/ Contrast 02/17/2025 Orders Only [facility] External Provider, [facility] 02/12/2025 Results Follow-Up [facility] [address] [place] [address] Otilia Quiñones MD CBC auto differential, Sjogren's Antibodies (SS-A,SS-B), POCT Rapid Strep A OSOM, Additional followed-up results: 2 02/10/2025 11:30 AM EDT Office Visit [facility] [address] [place] [address] Otilia Quiñones MD Dermatitis (Primary Dx); Iron deficiency anemia, unspecified iron deficiency anemia type; Palpitations; Sore throat 02/10/2025 Travel 02/09/2025 Telephone [facility] [address] [place] [address] Otilia Quiñones MD Chart Prep 02/03/2025 9:30 AM EDT Office Visit [facility] [address] [place] [address] Yoshi Sandoval DMD Partial edentulism, unspecified edentulism class (Primary Dx) 02/02/2025 1:00 PM EDT Office Visit [facility] [address] [place] [address] Yoshi Sandoval DMD Dental caries (Primary Dx) 01/28/2025 Refill [facility] [address] [place] [address] Henrique Whittaker MD RBC microcytosis 01/12/2025 11:00 AM EDT Office Visit [facility] [address] [place] [address] Yoshi Sandoval DMD Dental caries (Primary Dx); History of tooth extraction, unspecified edentulism class from Last 3 Months Immunizations Immunization Administration [...] Sign Reading Time Taken Comments Blood Pressure 137/87 03/09/2025 1:32 PM EDT Pulse 123 03/09/2025 1:32 PM EDT Temperature 36.8 C (98.2 F) 02/10/2025 11:36 AM EDT Respiratory Rate 20 03/09/2025 1:32 PM EDT Oxygen Saturation 98% 03/09/2025 1:32 PM EDT Inhaled Oxygen Concentration - - Weight 70.8 kg (156 lb) 03/09/2025 1:32 PM EDT Height 162.6 cm (5' 4 ) 03/09/2025 1:32 PM EDT Body Mass Index 26.78 03/09/2025 1:32 PM EDT Plan of Treatment Upcoming Encounters Date Type Department Care Team (Late st Contact Info) Description 03/22/2025 10:30 AM EDT Office Visit [facility] [address] [place] [address] Yoshi Sandoval, DMD [address] [place] [address] Health Maintenance Due Date Last Done Comments CT Colonography 1975 Colonoscopy 1975 Colorectal Cancer Screening 1975 FIT DNA/Cologuard 1975 FIT 1975 FOBT 1975 Sigmoidoscopy 1975 Family Planning (PISQ) 1991 Hepatitis B Vaccines (1 of 3 - 19+ 3-dose series) 1995 SDOH Screening 06/15/2023 06/15/2022 Dental X-Ray: Full Mouth 08/13/2023 08/11/2020, 12/02 COVID-19 Vaccine ( season) 2025 Influenza Vaccine (#1) 2025 Mammogram 06/17/2025 06/17/2024, 02/01, 02/12/2023, Additional history exists Cervical Cancer Screening 08/02/2025 HPV/Cotest 08/02/2025 08/02/2020 Pap Smear 08/02/2025 08/02/2020 Dental Oral Exam 08/04/2025 02/03/2025, , 11/21/2022, Additional history exists Dental Prophylaxis 09/08/2025 03/09/2025, 0 07/19/2023, 12/17/2022, Additional history exists Dental X-Ray: Bitewings 01/13/2026 01/13/20 25, 11/21/2022, 08/25/2021, Additional history exists Alcohol/Substance Use Screening 02/10/2026 02/10/2025 Depression Screening 02/10/2026 02/10/2025, 07/03/19 24 Disability Screening 02/10/2026 02/10/2025 Tobacco Screening 03/09/2026 03/09/2025 Zoster Vaccines (1 of 2) 2026 DTaP/Tdap/Td [...] Routine 03/19/2025 1: 48 PM EDT Transaminitis ALBUMIN, RANDOM URINE W/CREATININE Routine 03/11/2025 1:50 PM EDT Edema, lower extremity T4, FREE Routine 03/11/2025 1:46 PM EDT T-SPOT(R).TB Routine 03/11/2025 1:46 PM EDT Edema, lower extremity CBC WITH AUTO DIFFERENTIAL Routine 03/11/2025 1:46 PM EDT Edema, lower extremity TSH W/REFLEX TO FT4 Routine 03/11/2025 1 :46 PM EDT Edema, lower extremity COMPREHENSIVE METABOLIC PANEL Routine 03/11/2025 1:46 PM EDT Edema, lower extremity HELICOBACTER PYLORI AG, EIA, STOOL Routine 03/11/2025 9:30 AM EDT Iron deficiency anemia, unspecified iron deficiency anemia type POCT RAPID STREP A Routine 03/09/2025 2: 44 PM EDT Sore throat CASE PRESENTATION, DETAILED AND EXTENSIVE TREATMENT PLANNING Routine 03/09/2025 10:30 AM EDT Dental caries Gingivitis COMPREHENSIVE PERIODONTAL EVALUATION - NEW OR ESTABLISHED PATIENT Routine 03/09/2025 10:30 AM EDT Gingivitis PROPHYLAXIS - ADULT Routine 03/09/2025 1 0:30 AM EDT Gingivitis 29 DO RESIN-BASED COMPOSITE - 2 SURF, POSTERIOR Routine 03/09/2025 10:30 AM EDT Dental caries CT CHEST W CONTRAST Routine 03/05/2025 1 :32 PM EDT Pulmonary nodule CT SOFT TISSUE NECK W CONTRAST Routine [...] tooth extraction, unspecified edentulism class Dental caries HEPATITIS C AB W/REFL TO HCV RNA, QN, PCR Routine 10/15/2024 1:34 PM EDT Dermatitis Generalized abdominal pain HIV 1/2 ANTIGEN/ANTIBODY, FOURTH GENERATION W/RFL Routine 10/15/2024 1:34 PM EDT Dermatitis Generalized abdominal pain BI MAMMOGRAM DIAGNOSTIC TOMOSYNTHESIS BILATERAL Routine 06/17/2024 11:18 AM EST INTRAORAL - COMPLETE SERIES OF RADIOGRAPHIC IMAGES Routine 08/11/2020 12:00 AM EST HPV MRNA E6/E7 Routine 08/02/2020 9:01 AM EST THINPREP PAP Routine 08/02/2020 9:01 AM EST from Last 3 Months or Most Recently Relevant to Health Maintenance Results * (ABNORMAL) Prothrombin Time-INR (03/19/2025 1:48 PM EDT) Prothrombin Time 12.6(H) 10.9 - 12.4 SEC [facility] INTERNATIONAL NORM RATIO 1.1 0.9 - 1.1 [facility] Comment:INTERNATIONAL NORMAL IZED RATIO (INR) REFERENCE [...] 1:48 PM EDT 03/19/2025 2:38 PM EDT us Henrique Whittaker MD LAB BLOOD ORDERABLES Final Result Performing Organization Address [facility] Co de Phone Number [facility] [address] [place] [address] [phone] * (ABNORMAL) Reticulocyte Count (03/19/2025 1:48 PM EDT) Pathologist [facility] Reticulocytes Absolute 0.043 0.026 - 0.095 X10*6/uL [facility] Immature Retic Fraction 6.5 3.0 - 15.9 % [facility] Retic HGB Equivalent 26.2(L) 30.0 - 35.0 pg [facility] Reticulocyte Percent 1.0 0.5 - 1.8 % [facility] Blood Venous blood specimen / Unknown 03/19/2025 1:48 PM EDT 03/19/2025 2:38 PM EDT us Henrique Whittaker MD LAB BLOOD ORDERABLES Final Result Performing Organization Address [facility]/ZIP Co de Phone Number [facility] [address] [place] [address] [phone] * Albumin, Random Urine W/Creatinine (03/11/2025 1:50 PM EDT) Creatinine, Urine 126.46 mg/dL [facility] Microalbumin Urine 6.0 mg/L [facility] Microalbum Creatinine Ratio Ur 4.7 <30 ug/mg cr [facility] Comment:Albumin/Creatinine R atio Reference Ranges: Normal: < 30 ug/mg creatinine Microalbuminuria: 30 - 300 ug/mg creatinineClinical Albuminuria: > 300 ug/mg creatinine Urine (Urine, Random) 03/11/2025 1:50 PM EDT 03/11/2025 5:48 PM EDT us Henrique Whittaker MD LAB URINE ORDERABLES Final Result [facility] [address] [place] [phone] * T-SPOT??.TB (03/11/2025 1:46 PM EDT) T Spot TB Negative Negative [facility] Comment:A negative test resu lt does not exclude the possibilityof exposure to or infection with Mycobacteriumtuberculosis (M. tuberculosis). Patients with recentexposure to TB infected individuals exhibiting anegative T-SPOT.TB result should be considered forretesting within 6 weeks or if other relevant clinicalsymptoms indicate. Results from T-SPOT.TB testing mustbe used in conjunction with each individual'sepidemiological history, current medical status,and results of other diagnostic evaluations.The T-SPOT.TB test is qualitative and results arereported as positive, borderline, or negative, giventhat the test controls perform as expected. In linewith the Centers for Disease Control and Prevention's2010 recommendation to report quantitative measurementsalongside the qualitative result, the laboratoryprovides spot counts for informational purposes only.The T-SPOT.TB test should not be interpreted as aquantitative test. TS PANEL A 0 [facility] TS PANEL B 0 [facility] Negative Control Passed [facility] Positive Control Passed [facility] Comment:For additional infor mation, please refer tohttp://education.for[[email or web address]/HAP557(This link is being provided for informational/educational purposes only.)THIS TEST WAS PERFORMED AT:[employer]/[id number] [place] [address]OLUTZISJAZMYNE BONNER MD,PHD 03/11/2025 1:46 PM EDT 03/11/2025 2:26 PM EDT us Henrique Whittaker MD LAB BLOOD ORDERABLES Final Result Performing Organization Address City/[facility]/ZIP Co de Phone Number [facility] [address] [place] [phone] * (ABNORMAL) TSH W/Reflex to FT4 (03/11/2025 1:46 PM EDT) Pathologist [facility] TSH reflex Free T4 <0.01(L) 0.32 - 4.0 uIU/mL [facility] Blood Venous blood specimen / Unknown 03/11/2025 1:46 PM EDT 03/11/2025 2:26 PM EDT us Henrique Whittaker MD LAB BLOOD ORDERABLES Final Result Performing Organization Address [facility] de Phone Number [facility] [address] [place] [phone] * (ABNORMAL) CBC auto differential (03/11/2025 1:46 PM EDT) Only the most recent of2 resultswithin the time period is included. Pathologist [facility] White Blood Count 4.9 4.8 - 10.8 X10*3/uL [facility] Red Blood Count 4.69 4.20 - 5.50 X10*6/uL [facility] Hemoglobin 11.5(L) 12.0 - 16.0 g/dl [facility] Hematocrit 36.8(L) 37.0 - 47.0 % [facility] Mean Corpuscular Volume 78.5(L) 80.0 - 98.0 fL [facility] Mean Corpuscular Hemoglobin 24.5(L) 27.0 - 33.0 pg [facility] Mean Corpuscular HGB Conc 31.3 31.0 - 35.0 g/dl [facility] Red Cell Distribution Width 12.5 11.0 - 16.0 % [facility] Platelet Count 188 160 - 400 X10*3/uL [facility] Mean Platelet Volume 11.5 9.4 - 12.3 fL [facility] Neutrophils Percent Auto 56.6 45 - 73 % [facility] Imm Gran Pct Auto 0.2 0.0 - 0.4 % [facility] Lymphocytes Percent Auto 26.3 20 - 40 % [facility] Monocytes Percent Auto 13.8(H) 2 - 11 % [facility] Eosinophils Percent Auto 2.9 0 - 4 % [facility] Basophils Percent Auto 0.2 0 - 2 % [facility] NRBC Pct Auto 0.0 0.0 - 0.2 /100WBC [facility] Neutrophils Absolute Auto 2.8 2.0 - 8.3 x10*3/uL [facility] Imm Gran Abs Auto 0.01 0.00 - 0.03 X10*3/uL [facility] Lymphocytes Absolute Auto 1.3 1.2 - 4.9 X10*3/uL [facility] Monocytes Absolute Auto 0.7 0.1 - 1.2 X10*3/uL [facility] Eosinophils Absolute Auto 0.1 0.0 - 0.4 X10*3/uL [facility] Basophils Absolute Auto 0.0 0.0 - 0.2 X10*3/uL [facility] NRBC Abs Auto 0.000 0.0 - 0.012 X10*3/uL [facility] Blood Venous blood specimen / Unknown 03/11/2025 1:46 PM EDT 03/11/2025 2:26 PM EDT us Henrique Whittaker MD LAB BLOOD ORDERABLES Final Result [facility] [address] [place] [phone] [phone] * (ABNORMAL) T4, Free (03/11/2025 1:46 PM EDT) Free T4 (Free Thyroxine) 3.12(H) 0.71 - 1.85 ng/dL [facility] 03/11/2025 1:46 PM EDT 03/11/2025 2:26 PM EDT Henrique Whittaker MD LAB BLOOD ORDERABLES Final Result [facility] [address] [place] [phone] [phone] * (ABNORMAL) Comprehensive Metabolic Panel (03/11/2025 1:46 PM EDT) Sodium 142 135 - 145 mmol/L [facility] Potassium 3.9 3.3 - 5.1 mmol/L [facility] Chloride 109(H) 96 - 108 mmol/L [facility] Carbon Dioxide 27 22 - 29 mmol/L [facility] Anion Gap 10(L) 12 - 20 [facility] Urea Nitrogen (BUN) 14 9 - 16 mg/dL [facility] Creatinine, Serum 0.48(L) 0.5 - 1.4 mg/dL [facility] Estimated Glomerular Filt Rate >60 [facility] Comment:Chronic Kidney Disea se: Estimated GFR < 60 mL/min/1.03v6Vmkown Kidney Disease: Estimated GFR < 15 mL/min/1.73m2 Glucose 93 60 - 115 mg/dL [facility] Calcium 9.6 8.4 - 10.2 mg/dL [facility] Bilirubin, Total 0.4 0.0 - 1.0 mg/dL [facility] Aspartate Amino Transferase 26 5 - 31 U/L [facility] Alanine Aminotransferase 32(H) 0 - 31 U/L [facility] Total Protein 6.6 6.5 - 8.0 g/dL [facility] Albumin Level 3.8 3.5 - 5.0 g/dL [facility] Alkaline Phosphatase 75 39 - 117 U/L [facility] Blood Venous blood specimen / Unknown 03/11/2025 1:46 PM EDT 03/11/2025 2:26 PM EDT Henrique Whittaker MD LAB BLOOD ORDERABLES Final Result Performing Organization Address [facility]/ZIP Co de Phone Number [facility] [address] [place] [phone] * Helicobacter pylori??Antigen, EIA, Stool (03/11/2025 9:30 AM EDT) H pylori Ag Stool SEE NOTE [facility] Comment:HELICOBACTER PYLORI AG, EIA, STOOL Micro Number: [id number] Test Status: Final Specimen Source: Stool Specimen Quality: Adequate H.pylori Ag: Not Detected Antimicrobials, proton pump inhibitors, and bismuth preparations inhibit H. pylori and ingestion up to two weeks prior to testing may cause false negative results. If clinically indicated the test should be repeated on a new specimen obtained two weeks after discontinuing treatment. Reference Range: Not DetectedTHIS TEST WAS PERFORMED AT:[employer] [address] [id number]CYRIL NASSAR MD Stool Rectal contents / Unknown 03/11/2025 9:30 AM EDT 03/11/2025 2:36 PM EDT Otilia Quiñones MD LAB BODY FLUIDS AND STOOLS OR DERABLES Final Result Performing Organization Address [facility]/ZIP Co de Phone Number [facility] [address] [place] [phone] * POCT Rapid Strep A OSOM (03/09/2025 2:44 PM EDT) Only the most recent of2 resultswithin the time period is included. Rapid Strep A Screen Negative Negative, None Detected QC Media Lot # [id number] Lot# Expiration Date Swab 03/09/2025 2:44 PM EDT us Henrique Whittaker MD POINT OF CARE TEST ENTER/ED IT ORDERABLES Final Result * CT Chest w/ Contrast (03/05/2025 1:32 PM EDT) Anatomical Region Laterality Modality Body, Chest Computed Tomogra phy 03/05/2025 1:32 PM EDT Narrative 03/05/2025 2:05 PM EDT [place] [address] [address] Scan Report Signed Patient: Geovanna Hobbs MR#: [id number] 74 : 1975 Acct:[id number] Age/Sex: 49 / F ADM Date: 03/05/25 Loc: HO.CT Attending Dr: Otilia Quiñones MD Ordering Physician: Otilia Quiñones MD Date of Service: 03/05/25 Procedure(s): CT chest w IV con Accession Number(s): [id number] cc: Otilia Quiñones MD Report Number: [id number]: Total DLP = 90.00 mGy-cm Reason for Exam: sob, fatigue, pulmonary nodules EXAMINATION: CT CHEST WITH CONTRAST CLINICAL INFORMATION: sob, fatigue, pulmonary nodules COMPARISON: Chest x-ray 02/17/2025 CT abdomen and pelvis March 08, 2013 and November 12, 2024 TECHNIQUE: Multidetector volumetric CT imaging of the chest was obtained after the administration of 65mL of Omnipaque 350 intravenous contrast without immediate adverse reactions. Axial MIP volume rendering provided. Sagittal and coronal reformatted images were obtained. This CT examination was performed using dose optimization techniques as appropriate, variously including the following: *Automated exposure control *Adjustment of mA and/or kV according to patient size (this includes techniques or standardized protocols for targeted exams where dose is matched to indication/reason for exam; i.e. extremities or head) *Use of iterative reconstruction technique FINDINGS: LUNGS: 2 mm calcified nodule is present in the posterior medial basal right lower lobe contacting diaphragm has been present since at least 2012. There is a 3 mm pulmonary nodule in the right middle lobe along the band of linear scarring that has been present since 2012. Peripheral blebs are present in the anteromedial lung apices. MEDIASTINUM: The mediastinum is normal. PLEURA: There is no pleural effusion. No pleural mass or thickening. AXILLA: No lymphadenopathy. UPPER ABDOMEN: Unremarkable OSSEOUS STRUCTURES: Unremarkable. CT/CT chest w IV con IMPRESSION: 2 pulmonary nodules are seen that are stable since at least 2012. No further follow-up is indicated. There are a few paraseptal blebs in the anteromedial lung apexes. Fleischner guidelines were followed. Electronically signed by: Kevin Rivera MD 03/05/2025 02:02 PM EDT RP Dictated By: Kevin Rivera MD Signed By: <Electronically signed by Kevin Rivera MD in OV> 03/05/25 1402 DD/ 1332 TD/TT: 03/05/25 1345 Driver Trainee: Procedure Note Donotuseinterpreter, Image - 03/05/[address] [place] [address] [address] Scan Report Signed Patient: Geovanna HobbsMR#: [id number] 74 : 1975Acct:[id number] Age/Sex: 49 / FADM Date: 03/05/25 Loc: .CT Attending Dr: Otilia Quiñones MD Ordering Physician: Otilia Quiñones MD Date of Service: 03/05/25 Procedure(s): CT chest w IV con Accession Number(s): [id number] cc: Otilia Quiñones MD Report Number: [id number]: Total DLP = 90.00 mGy-cm Reason for Exam: sob, fatigue, pulmonary nodules EXAMINATION: CT CHEST WITH CONTRAST CLINICAL INFORMATION: sob, fatigue, pulmonary nodules COMPARISON: Chest x-ray 02/17/2025 CT abdomen and pelvis March 08, 2013 and November 12, 2024 TECHNIQUE: Multidetector volumetric CT imaging of the chest was obtained after the administration of 65mL of Omnipaque 350 intravenous contrast without immediate adverse reactions. Axial MIP volume rendering provided. Sagittal and coronal reformatted images were obtained. This CT examination was performed using dose optimization techniques as appropriate, variously including the following: *Automated exposure control *Adjustment of mA and/or kV according to patient size (this includes techniques or standardized protocols for targeted exams where dose is matched to indication/reason for exam; i.e. extremities or head) *Use of iterative reconstruction technique FINDINGS: LUNGS: 2 mm calcified nodule is present in the posterior medial basal right lower lobe contacting diaphragm has been present since at least 2012. There is a 3 mm pulmonary nodule in the right middle lobe along the band of linear scarring that has been present since 2012. Peripheral blebs are present in the anteromedial lung apices. MEDIASTINUM: The mediastinum is normal. PLEURA: There is no pleural effusion. No pleural mass or thickening. AXILLA: No lymphadenopathy. UPPER ABDOMEN: Unremarkable OSSEOUS STRUCTURES: Unremarkable. CT/CT chest w IV con IMPRESSION: 2 pulmonary nodules are seen that are stable since at least 2012. No further follow-up is indicated. There are a few paraseptal blebs in the anteromedial lung apexes. Fleischner guidelines were followed. Electronically signed by: Kevin Rivera MD 03/05/2025 02:02 PM EDT Dictated By: Kevin Rivera MD Signed By: <Electronically signed by Kevin Rivera MD in OV> 03/05/25 1402 DD/ 1332 TD/TT: 03/05/25 1345 Driver Trainee: us Otilia Quiñones MD IMG CT PROCEDURES Final Resul t * CT Soft Tissue Neck w/ Contrast (02/17/2025 12:31 PM EDT) Anatomical Region Laterality Modality Head, Neck Computed Tomogra phy 02/17/2025 12:3 1 PM EDT Narrative 02/17/2025 1:12 PM EDT [address] [address] [address] Scan Report Signed Patient: Geovanna Hobbs MR#: [id number] [birth year] : 1975 Acct:[id number] Age/Sex: 49 / F ADM Date: 02/17/25 Loc: HO.ED Attending Dr: Ordering Physician: Tin Leger MD Date of Service: 02/17/25 Procedure(s): CT soft tissue neck w IV con Accession Number(s): [id number] cc: Otilia Quiñones MD; Tin Leger MD Report Number: [id number]: Total DLP = 406.00 mGy-cm Reason for [...] Retropharangeal Space: -Normal. Parapharyngeal Fat Planes: -Normal. Sole Molding Machine Operator Spaces: -Normal. Anterior Cervical Space: -Normal. Imaged [...] 02/17/25 1309 DD/ 1231 TD/TT: 02/17/25 1250 Driver Trainee: Procedure Note Donotuseinterpreter, Image - 02/17/[address] [address] [address] Scan Report Signed Patient: Geovanna HobbsMR#: [id number] 74 : 1975Acct:[id number] Age/Sex: 49 / FADM Date: 02/17/25 Loc: .ED Attending Dr: Ordering Physician: Tin Leger MD Date of Service: 02/17/25 Procedure(s): CT soft tissue neck w IV con Accession Number(s): [id number] cc: Otilia Quiñones MD; Tin Leger MD Report Number: [id number]: Total DLP = 406.00 mGy-cm Reason for [...] Retropharangeal Space: -Normal. Parapharyngeal Fat Planes: -Normal. Sole Molding Machine Operator Spaces: -Normal. Anterior Cervical Space: -Normal. Imaged [...] 02/17/25 1309 DD/ 1231 TD/TT: 02/17/25 1250 Driver Trainee: [facility] External Provider IMG CT PROCEDURES Edited Result - Final * Sjogren's Antibodies (SS-A,SS-B) (02/10/2025 12:48 PM EDT) Sjogren's Antibody (SS-A) <1.0 NEG <1.0 NEG [facility] Sjogren's Antibody (SS-B) <1.0 NEG <1.0 NEG [facility] Comment:THIS TEST WAS PERFOR MED AT:[employer] [place] [id number] NASSAR MD 02/10/2025 12:4 8 PM EDT 02/10/2025 2:17 PM EDT Otilia Quiñones MD LAB BLOOD ORDERABLES Final Re sult Performing Organization Address [facility] Co de Phone Number [facility] [address] [place] [phone] * Culture, Throat (02/10/2025 11:55 AM EDT) Throat Structure of anterior region of neck / Unknown 02/10/2025 11:55 AM EDT 02/10/2025 2:18 PM EDT Comment:Throat Narrative [facility] - 02/12/2025 11:46 AM EDT Throat Culture No Group A Beta-hemolytic Streptococci isolated. Specimen Source: Throat Otilia Quiñones MD LAB MICROBIOLOGY - GENERAL OR DERABLES Final Result Performing Organization Address [facility] Co de Phone Number [facility] [address] [place] [phone] * Hepatitis C Antibody with Reflex to HCV, RNA, Quantitative, Real-Time PCR (10/15/2024 1:34 PM EDT) Hepatitis C Antibody Nonreactive Nonreactive [facility] Comment:Antibodies to HCV no t detected; does not exclude early acuteHCV infection. Blood Venous blood specimen / Unknown 10/15/2024 1:34 PM EDT 10/15/2024 2:19 PM EDT Otilia Quiñones MD LAB BLOOD ORDERABLES Final Re sult Performing Organization Address [facility] Co de Phone Number [facility] [address] [place] [phone] * HIV-1/2 Antigen and Antibodies, Fourth Generation, with Reflexes (10/15/2024 1:34 PM EDT) HIV AB/AG Nonreactive Nonreactive [facility] Comment:HIV-1 p24 Ag and/or HIV-1/HIV-2 Ab not detected.A test result that is nonreactive does not exclude thepossibility of exposure to or infection with HIV-1 and/orHIV-2. Nonreactive results in this assay for individualswith prior exposure to HIV-1 and/or HIV-2 may be due toantigen and antibody levels that are below the limit ofdetection of this assay.The [employer] HIV Ag/Ab Combo assay result andsupplemental assay results should be interpreted inconjunction with the patient's clinical presentation,history and other laboratory results. If the results areinconsistent with clinical evidence, additional testing issuggested to confirm the result. Blood Venous blood specimen / Unknown 10/15/2024 1:34 PM EDT 10/15/2024 2:19 PM EDT us Otilia Quiñones MD LAB BLOOD ORDERABLES Final Re sult [facility] [address] [place] [phone] * BI Mammogram Diagnostic Tomosynthesis Bilateral (06/17/2024 11:18 AM EST) Anatomical Region Laterality Modality Breast Bilateral Mammography 06/17/2024 11:1 8 AM EST Narrative 06/17/2024 1:06 PM EST [facility] [address] [place] [address] Mammography Report Signed Patient: Geovanna Hobbs MR#: [id number] 74 : 1975 Acct:[id number] Age/Sex: 48 / F ADM Date: 06/17/24 Loc: [facility] Attending Dr: Yunier Bentley MD Ordering Physician: Yunier Bentley MD Results: 2Beni gn Findings Date of Service: 06/17/24 Follow Up: 1 Year From [facility] ina Mammogram Procedure(s): MM tomosynthesis diagnostic BI Accession Number(s): [id number] cc: Otilia Quiñones MD; Yunier Bentley MD [...] by: Criselda Jimenez DO 06/17/2024 01:03 PM [facility] [place] Dictated By: Criselda Jimenez DO Signed By: <Electronically signed by Criselda Jimenez DO in OV> 06/17/24 1303 DD/ 1118 TD/TT: 06/17/24 1146 Driver Trainee: Procedure Note Donotuseinterpreter, Image - 06/17/2024 [facility] [address] [place] [address] Mammography Report Signed Patient: Geovanna HobbsMR#: [id number] 74 : 1975Acct:[id number] Age/Sex: 48 / FADM Date: 06/17/24 Loc: JOSEPHO Attending Dr: Yunier Bentley MD Ordering Physician: Yunier Bentley MDResults: 2Beni gn Findings Date of Service: 06/17/24Follow Up: 1 Year From Orig inal Mammogram Procedure(s): MM tomosynthesis diagnostic BI Accession Number(s): [id number] cc: Otilia Quiñones MD; Yunier Bentley MD [...] 06/17/24 1303 DD/ 1118 TD/TT: 06/17/24 1146 Driver Trainee: [facility] External Provider IMG BI [...] along with historic and current clinical information. Ampoule Inspector : SEE COMMENT [facility] Comment: BK,CT(ASCP) CT screening location: [address] Interpretation/R esult: Negative for intraepithelial lesion or malignancy. [facility] LMP: 06/03/2020 [facility] Prev. BX: NONE [facility] Prev. PAP: NONE [facility] Review Ampoule Inspector : SEE COMMENT [facility] Comment: SL, CT(ASCP) CT screening location: [address] [address] SOURCE: None given [facility] Statement Of Adequacy: SEE COMMENT [facility] Comment: Satisfactory for evaluation. Endocervical/transformation zone component absent. 08/02/2020 9:01 AM EST Thania HORN LAB PATHOLOGY ORDERABLES Final Result Performing Organization Address [facility] de Phone Number [facility] [address] * HPV mRNA E6/E7 (08/02/2020 9:01 AM EST) HPV nRNA E6/E7 Not Detected Not Detected [facility] Comment: Methodology: Buffing [employer] Polishing Wheel Repairer-Mediated Amplification This assay detects E6/E7 viral messenger RNA (mRNA) from 14 high-risk HPV types (16,18,31,33,35,39,45,51,52,56,58,59,66,68). The analytical performance characteristics of this assay have been determined by [employer]. The modifications have not been cleared or approved by the FDA. This assay has been validated pursuant to the CLIA regulations and is used for clinical purposes. For additional information, please refer to http://education.Capablue.Highfive/faq/DZR457e6 (This link if provided for information/ educational purposes only.) 08/02/2020 9:01 AM EST Thania HORN LAB BLOOD ORDERABLES Kelly l Result Performing Organization Address [facility]/ZIP Co de Phone Number [place] [address] from Last 3 Months or Most Recently Relevant to Health Maintenance Insurance [facility] C3 DENTAL-[facility] MEDICAID STAND ADULT Care Teams Intelligence Analyst Relationship Specialty Start Date End Date Otilia Quiñones MD [address] [place] [phone] PCP - General Family Medicine 09/15/13
[2025-03-19 16:40] LABS: Ferritin 125 ng/mL (10-250)
[2025-03-20 10:18] LABS: HBS Num1 1.69 mIU/mL (0-7.99); ~Hepatitis B Surface Antibody NONREACTIVE (Nonreactive)
== END 2025-03-19 13:42 | disposition home or self-care (01) ==
LOC: HO.CHCLDS 13:41
PROVIDERS: Visit Provider Internal Medicine
DX: Z11.59 Encounter for screening for other viral diseases (principal); R74.01 Elevation of levels of liver transaminase levels
CPT/HCPCS: 36415; 82728; 83540; 85045; 85610; 86706

== ENCOUNTER 2025-03-22 10:31 | Emergency (ER) | payer MEDICAID, SELFPAY ==
--- NOTE | 2025-03-22 10:34 | ECG_ITS ---
Test Reason : PAIN Blood Pressure : */* mmHG Vent. Rate : 100 BPM Atrial Rate : 100 BPM P-R Int : 140 ms QRS Dur : 74 ms QT Int : 344 ms P-R-T Axes : 73 39 58 degrees QTcB Int : 443 ms Normal sinus rhythm Biatrial enlargement Abnormal ECG When compared with ECG of 17-Feb-2025 12:50, Vent. rate has increased by 35 bpm Referred By: Nick Acuna Electronically Signed By: TAIWO MARTINEZ MD
--- NOTE | 2025-03-22 10:34 | ED.GENADULT ---
HPI - General Adult General Chief complaint: Chest Pain Stated complaint: SOB, CP sent here for testing per [facility] Related Data Home Medications ?Medication ?Instructions ?Recorded ?Confirmed clonidine HCl 0.2 mg tablet 0.2 mg PO BEDTIME 11/16/24 11/16/24 Previous Rx's ?Medication ?Instructions ?Recorded omeprazole 40 mg capsule,delayed 40 mg PO DAILY #20 caps 04/24/24 release ondansetron 4 mg disintegrating 4 mg PO Q6-8H PRN nausea and 04/24/24 tablet vomiting #7 tabs atenolol 25 mg tablet 25 mg PO DAILY #30 tabs 03/27/25 Allergies Allergy/AdvReac Type Severity Reaction Status Date / Time No Known Allergies (No Known Allergy Verified 03/27/25 12:05 Allergies*) [facility] Past Medical History Medical History Throat pain Prolapsed hemorrhoids Bleeding hemorrhoids Smoker Anxiety Surgical History History of tubal ligation H/O section Family History Family History Maternal Grandmother Breast cancer Social History Social History Substance Use Type: Marijuana Physical Exam ED Vital Signs: BMI result Body Mass Index 25.4 Course Course Course Narrative: RME, this is a rapid medical exam performed by Quan Acuna please refer to primary provider for complete H&P- 49-year-old female who reports she was recently diagnosed with hypothyroidism presents for evaluation of multiple complaints including chest pain, shortness of breath,. Her neck and difficulty swallowing. She was sent here for specific labs including thyroglobulin antibodies, thyroid-stimulating immunoglobulin and thyroid tripped and receptor antibodies. These labs were ordered. She also complains of swelling in both legs. Plan for a pro BNP Medications Administered Discontinued Medications Generic Name Dose Route Start Last Admin Trade Name Freq PRN Reason Stop Dose Admin Ibuprofen 800 mg 03/22/25 13:27 03/22/25 13:33 Ibuprofen 800 Mg Tablet PO 03/22/25 13:28 800 mg ONCE ONE Administration Medical Decision Making Lab Data 03/22/25 12:44 03/22/25 12:44 Labs: Lab Results 03/22/25 Range/Units 12:44 WBC 4.0 L (4.8-10.8) X10*3/uL RBC 4.86 (4.20-5.50) X10*6/uL Hgb 11.8 L (12.0-16.0) g/dl Hct 37.1 (37.0-47.0) % MCV 76.3 L (80.0-98.0) fL MCH 24.3 L (27.0-33.0) pg MCHC 31.8 (31.0-35.0) g/dl RDW 12.4 (11.0-16.0) % Plt Count 202 (160-400) X10*3/uL MPV 11.8 (9.4-12.3) fL Immature Gran % (Auto) 0.2 (0.0-0.4) % Neut % (Auto) 61.3 (45-73) % Lymph % (Auto) 27.0 (20-40) % Davie % (Auto) 10.1 (2-11) % Eos % (Auto) 1.2 (0-4) % Baso % (Auto) 0.2 (0-2) % Lymph # (Auto) 1.1 L (1.2-4.9) X10*3/uL Davie # (Auto) 0.4 (0.1-1.2) X10*3/uL Eos # (Auto) 0.1 (0.0-0.4) X10*3/uL Baso # (Auto) 0.0 (0.0-0.2) X10*3/uL Abs Immat Gran (auto) 0.01 (0.00-0.03) X10*3/uL Absolute Neuts (auto) 2.5 (2.0-8.3) x10*3/uL Absolute Nucleated RBC 0.000 (0.0-0.012) X10*3/uL Nucleated RBC % (auto) 0.0 (0.0-0.2) /100WBC Sodium 141 (135-145) mmol/L Potassium 3.7 (3.3-5.1) mmol/L Chloride 106 (96-108) mmol/L Carbon Dioxide 27 (22-29) mmol/L Anion Gap 12 (12-20) BUN 12 (9-16) mg/dL Creatinine 0.50 (0.5-1.4) mg/dL Estim Creat Clear Calc 129.5 Estimated GFR > 60 Random Glucose 136 H (60-115) mg/dL Calcium 9.6 (8.4-10.2) mg/dL Total Bilirubin 0.6 (0.0-1.0) mg/dL AST 28 (5-31) U/L ALT 31 (0-31) U/L Alkaline Phosphatase 76 (39-117) U/L Troponin I High Sens 6.5 D (<3.5-17.0) ng/L NT-Pro-B Natriuret Pep 589.2 H (<300) pg/mL Total Protein 6.4 L (6.5-8.0) g/dL Albumin 3.7 (3.5-5.0) g/dL TSH < 0.01 L (0.32-4.0) uIU/mL Free T4 2.85 H (0.71-1.85) ng/dL Thyroglobulin 14.6 ng/mL Thyroid Stim Immunoglob 237 H (<140) % baseline Beta HCG, Quant < 2 mIU/mL Thyroglobulin Antibody 2 H (< or = 1) IU/mL TSH Receptor Ab 21.44 H (<=2.00) IU/L Discharge Plan Discharge Clinical Impression: Chest pain Patient Disposition: Left W/O Completing Treatment Prescriptions: No Action atenolol 25 mg tablet 25 mg PO DAILY Qty: 30 0RF omeprazole 40 mg capsule,delayed release(DR/EC) 40 mg PO DAILY Qty: 20 0RF ondansetron 4 mg tablet,disintegrating 4 mg PO Q6-8H PRN (Reason: nausea and vomiting) Qty: 7 0RF clonidine HCl 0.2 mg tablet 0.2 mg PO BEDTIME Discharge Date/Time: 03/22/25 16:39
[2025-03-22 11:04] VITALS: BP 117/73; PULSE 95; RESP 18; TEMP 37; O2SAT 98; BMI 25.4
[2025-03-22 12:48] LABS: MANUAL DIFF FLAG NO
[2025-03-22 12:49] LABS: Hematocrit 37.1 % (37.0-47.0); Hemoglobin 11.8 g/dl (12.0-16.0); Imm Gran Abs Auto 0.01 X10*3/uL (0.00-0.03); Imm Gran Pct Auto 0.2 % (0.0-0.4); Lymphocytes Absolute Auto 1.1 X10*3/uL (1.2-4.9); Mean Corpuscular HGB Conc 31.8 g/dl (31.0-35.0); Mean Corpuscular Hemoglobin 24.3 pg (27.0-33.0); Mean Corpuscular Volume 76.3 fL (80.0-98.0); NRBC Abs Auto 0.000 X10*3/uL (0.0-0.012); NRBC Pct Auto 0.0 /100WBC (0.0-0.2); Platelet Count 202 X10*3/uL (160-400); Red Blood Count 4.86 X10*6/uL (4.20-5.50); White Blood Count 4.0 X10*3/uL (4.8-10.8)
[2025-03-22 13:10] LABS: Alanine Aminotransferase 31 U/L (0-31); Albumin Level 3.7 g/dL (3.5-5.0); Alkaline Phosphatase 76 U/L (39-117); Anion Gap 12 (12-20); Aspartate Amino Transferase 28 U/L (5-31); Blood Urea Nitrogen 12 mg/dL (9-16); Calcium 9.6 mg/dL (8.4-10.2); Carbon Dioxide 27 mmol/L (22-29); Chloride 106 mmol/L (96-108); Creatinine Clr Calc Pharmacy 129.5; Estimated Glomerular Filt Rate > 60; Potassium 3.7 mmol/L (3.3-5.1); Sodium 141 mmol/L (135-145); Total Protein 6.4 g/dL (6.5-8.0)
[2025-03-22 13:14] LABS: Troponin-I High Sensitivity 6.5 ng/L (<3.5-17.0)
[2025-03-22 13:26] VITALS: BP 147/106; PULSE 98; RESP 16; O2SAT 97
[2025-03-22 13:37] LABS: NT Pro B Type Natriuretic Pept 589.2 pg/mL (<300)
[2025-03-22 14:05] LABS: Free T4 (Free Thyroxine) 2.85 ng/dL (0.71-1.85)
--- OUTSIDE RECORDS SUMMARY | 2025-03-22 20:13 | XMS_ITS | Encounter Summary ---
Author Organization [employer] Address [address] [facility] 7t [place] [address] Care Team Providers Care County Engineer Name Role Phone Otilia Quiñones MD Primary Care Provider Encounter Details Date Type Department Care Team (Late st Contact Info) Description 03/28/2023 Abstract [facility] [address] [place] [address] Otilia Quiñones MD [address] [place], [place] [phone] Social History Tobacco Use Types Packs/Day Years [...] on filedocumented in this encounter Care Teams County Engineer Relationship Specialty Start Date End Date Otilia Quiñones MD [address] [place] [address] PCP - General Family Medicine 09/15/13 documented as of this encounter
--- OUTSIDE RECORDS SUMMARY | 2025-03-22 20:14 | XMS_ITS | Encounter Summary ---
Author Organization [employer] Address [address] [place] [address] 7 [place] [address] Care Team Providers Care Contract Driver Name Role Phone Otilia Quiñones MD Primary Care Provider [phone] Encounter Details Date Type Department Care Team [...] on filedocumented in this encounter Care Teams Contract Driver Relationship Specialty Start Date End Date Otilia Quiñones MD [address] [facility] [place] [address] PCP - General Family Medicine 09/15/13 documented as of this encounter
--- OUTSIDE RECORDS SUMMARY | 2025-03-22 20:14 | XMS_ITS | Encounter Summary ---
Author Organization [employer] Address [address] [place] [address] 7 [place] [address] Care Team Providers Care Field Health Officer Name Role Phone Otilia Quiñones MD Primary Care Provider [phone] Encounter Details Date Type Department Care Team (Latest Contact Info) Description 08/11/2020 Abstract [facility] CONVERSIONS Dental, Provider, DDS Social History Tobacco [...] on filedocumented in this encounter Care Teams Field Health Officer Relationship Specialty Start Date End Date Otilia Quiñones MD [address] [facility] [place] [address] PCP - General Family Medicine 09/15/13 documented as of this encounter
--- OUTSIDE RECORDS SUMMARY | 2025-03-22 20:14 | XMS_ITS | Encounter Summary ---
Author Organization [employer] Address [address] [facility] 7t [place] [address] Care Team Providers Care Lpn Per Diem Name Role Phone Otliia Quiñones MD Primary Care Provider [phone] Encounter Details Date Type Department Care Team (Late st Contact Info) Description 03/22/2025 Orders Only GENERIC EXTERNAL DATA DEPARTMENT Provider, Generic External Data Social History Tobacco Use Types Packs/Day Years [...] on file documented as of this encounter Procedures Procedure Name Priority Date/Time Associated Diagnosis Comments HIGH SENSITIVITY TROPONIN I Routine 03/22/2025 12:44 PM EDT TSH W/REFLEX TO FT4 Routine 03/22/2025 1 2:44 PM EDT NT-PROBNP Routine 03/22/2025 12:44 PM EDT CBC WITH AUTO DIFFERENTIAL Routine 03/22/2025 12:44 PM EDT HCG, TOTAL, QN Routine 03/22/2025 12:44 PM EDT T4, FREE Routine 03/22/2025 12:44 PM EDT COMPREHENSIVE METABOLIC PANEL Routine 03/22/2025 12:44 PM EDT documented in this encounter Results * (ABNORMAL) T4, Free (03/22/2025 12:44 PM EDT) Free T4 (Free Thyroxine) 2.85(H) 0.71 - 1.85 ng/dL [facility] 03/22/2025 12:4 4 PM EDT 03/22/2025 12:46 PM EDT us Generic External Data Provider LAB BLOOD ORDERAB LES Final Result [facility] [address] [place] [phone] * (ABNORMAL) NT-proBNP (03/22/2025 12:44 PM EDT) NT-proBNP 589.2(H) <300 pg/mL [facility] Comment:Reference Range:Age Group (years) NT-proBNP (pg/ml) InterpretationAll <300 Negative: HF unlikelyFor patients presenting to the ED with clinical suspicion ofnew onset or worsening HF, see below:18 to <50 >299.9 to <450.0 Grayzone: [id number] to 75 >299.9 to <900.0 other causes of>75 >299.9 to <1800.0 NT-proBNP [id number] to <50 >449.9 Positive: HF [id number] >899.9>75 >1799.9Note: Elevated NT-proBNP levels should be interpreted inthe context of other clinical information. 03/22/2025 12:4 4 PM EDT 03/22/2025 12:46 PM EDT us Generic External Data Provider LAB BLOOD ORDERAB LES Final Result [facility] [address] [place] [phone] * hCG, Total, Quantitative (03/22/2025 12:44 PM EDT) HCG Quantitative <2 mIU/mL [facility] Comment:Weeks post LMP Appro ximate hCG(Last Menstrual Period) Range (mIU/ml)3 - 4 weeks 9 - 1304 - 5 weeks 75 - 2,6005 - 6 weeks 850 - 20,8006 - 7 weeks 4000 - 100,2007 - 12 weeks 11,500 - 289,76224 - 16 weeks 18,300 - 137,11147 - 29 weeks (2nd trimester) 1,400 - 53,82397 - 41 weeks (3rd trimester) 940 - 60,000The Chand B- hCG assay is used for the early detection ofpregnancy; it cannot be used to diagnose any conditionunrelated to . If a B-hCG level is not supportedby the clinical evidence, results should be confirmed by analternative method (qualitative urine hCG, for example). 03/22/2025 12:4 4 PM EDT 03/22/2025 12:46 PM EDT Generic External Data Provider LAB BLOOD ORDERAB LES Final Result Performing Organization Address [facility] de Phone Number [facility] [address] [place] [phone] * (ABNORMAL) TSH with Reflex to Free T4 (03/22/2025 12:44 PM EDT) TSH reflex Free T4 <0.01(L) 0.32 - 4.0 uIU/mL [facility] 03/22/2025 12:4 4 PM EDT 03/22/2025 12:46 PM EDT Generic External Data Provider LAB BLOOD ORDERAB LES Final Result Performing Organization Address [facility] Phone Number [facility] [address] [place] [phone] * High Sensitivity Troponin I (03/22/2025 12:44 PM EDT) Pathologist [facility] TROPONIN I HIGH SENSITIVITY 6.5 <3.5 - 17.0 ng/L [facility] Comment:The Chand high sens itivity Troponin-I results should beused in conjunction with other diagnostic information suchas ECG, clinical observations and information, and patientsymptoms to aid in the diagnosis of [place]. 03/22/2025 12:4 4 PM EDT 03/22/2025 12:46 PM EDT Generic External Data Provider LAB BLOOD ORDERAB LES Final Result Performing Organization Address [facility] de Phone Number [facility] [address] [place] [phone] * (ABNORMAL) Comprehensive Metabolic Panel (03/22/2025 12:44 PM EDT) Sodium 141 135 - 145 mmol/L [facility] Potassium 3.7 3.3 - 5.1 mmol/L [facility] Chloride 106 96 - 108 mmol/L [facility] Carbon Dioxide 27 22 - 29 mmol/L [facility] Anion Gap 12 12 - 20 [facility] Urea Nitrogen (BUN) 12 9 - 16 mg/dL [facility] Creatinine, Serum 0.50 0.5 - 1.4 mg/dL [facility] Creatinine Clr Calc Pharmacy 129.5 [facility] Comment:Provided height and weight: 162.56 cm,67.1 kg.eGFR (calculated from the MDRD study equation) and eCrCl(calculated from the Cockcroft-Gault equation) are based ondifferent parameters and may not yield comparable results.If eCrCl result is absurd, please check patient'sheight/weight. Estimated Glomerular Filt Rate >60 [facility] Comment:Chronic Kidney Disea se: Estimated GFR < 60 mL/min/1.80b8Vnkfcu Kidney Disease: Estimated GFR < 15 mL/min/1.73m2 Glucose 136(H) 60 - 115 mg/dL [facility] Calcium 9.6 8.4 - 10.2 mg/dL [facility] Bilirubin, Total 0.6 0.0 - 1.0 mg/dL [facility] Aspartate Amino Transferase 28 5 - 31 U/L [facility] Alanine Aminotransferase 31 0 - 31 U/L [facility] Total Protein 6.4(L) 6.5 - 8.0 g/dL [facility] Albumin Level 3.7 3.5 - 5.0 g/dL [facility] Alkaline Phosphatase 76 39 - 117 U/L [facility] 03/22/2025 12:4 4 PM EDT 03/22/2025 12:46 PM EDT us Generic External Data Provider LAB BLOOD ORDERAB LES Final Result [facility] [address] [place] [phone] * (ABNORMAL) CBC auto differential (03/22/2025 12:44 PM EDT) White Blood Count 4.0(L) 4.8 - 10.8 X10*3/uL [facility] Red Blood Count 4.86 4.20 - 5.50 X10*6/uL [facility] Hemoglobin 11.8(L) 12.0 - 16.0 g/dl [facility] Hematocrit 37.1 37.0 - 47.0 % [facility] Mean Corpuscular Volume 76.3(L) 80.0 - 98.0 fL [facility] Mean Corpuscular Hemoglobin 24.3(L) 27.0 - 33.0 pg [facility] Mean Corpuscular HGB Conc 31.8 31.0 - 35.0 g/dl [facility] Red Cell Distribution Width 12.4 11.0 - 16.0 % [facility] Platelet Count 202 160 - 400 X10*3/uL [facility] Mean Platelet Volume 11.8 9.4 - 12.3 fL [facility] Neutrophils Percent Auto 61.3 45 - 73 % [facility] Imm Gran Pct Auto 0.2 0.0 - 0.4 % [facility] Lymphocytes Percent Auto 27.0 20 - 40 % [facility] Monocytes Percent Auto 10.1 2 - 11 % [facility] Eosinophils Percent Auto 1.2 0 - 4 % [facility] Basophils Percent Auto 0.2 0 - 2 % [facility] NRBC Pct Auto 0.0 0.0 - 0.2 /100WBC [facility] Neutrophils Absolute Auto 2.5 2.0 - 8.3 x10*3/uL [facility] Imm Gran Abs Auto 0.01 0.00 - 0.03 X10*3/uL [facility] Lymphocytes Absolute Auto 1.1(L) 1.2 - 4.9 X10*3/uL [facility] Monocytes Absolute Auto 0.4 0.1 - 1.2 X10*3/uL [facility] Eosinophils Absolute Auto 0.1 0.0 - 0.4 X10*3/uL [facility] Basophils Absolute Auto 0.0 0.0 - 0.2 X10*3/uL [facility] NRBC Abs Auto 0.000 0.0 - 0.012 X10*3/uL [facility] 03/22/2025 12:4 4 PM EDT 03/22/2025 12:46 PM EDT us Generic External Data Provider LAB BLOOD ORDERAB LES Final Result [facility] [address] [place] [phone] documented in this encounter Visit Diagnoses Not on filedocumented in this encounter Additional Health Concerns Assessment Noted Time PHQ-9 Depression Total Score: 0 07/03/19 24 10:45 AM EST documented as of this encounter Care Teams Lpn Per Diem Relationship Specialty Start Date End Date Otilia Quiñones MD [address] [place] [phone] PCP - General Family Medicine 09/15/13 documented as of this encounter
--- OUTSIDE RECORDS SUMMARY | 2025-03-22 20:14 | XMS_ITS | Encounter Summary ---
Author Organization [employer] Address [address] [facility] 7t [place] [address] Care Team Providers Care Educational Speech Language Clinician Name Role Phone Otilia Quiñones MD Primary Care Provider [phone] Encounter Details Date Type Department Care Team (Late st Contact Info) Description 03/22/2025 Telephone [employer] [address] [place] [address] Otilia Quiñones MD [address] [place], [place] [phone] Social History Tobacco Use Types Packs/Day Years [...] encounter Miscellaneous Notes * Telephone Encounter - Sharron Gifford - 03/22/2025 3:17 PM EDT Tc from patient requesting a call back for Lab results from ED visit. documented in this encounter Plan of Treatment Not on file documented as of this encounter Visit Diagnoses Not on filedocumented in this encounter Additional Health Concerns Assessment Noted Time PHQ-9 Depression Total Score: 0 07/03/19 24 10:45 AM EST documented as of this encounter Care Teams Educational Speech Language Clinician Relationship Specialty Start Date End Date Otilia Quiñones MD [address] [place] [address] PCP - General Family Medicine 09/15/13 documented as of this encounter
--- OUTSIDE RECORDS SUMMARY | 2025-03-22 20:14 | XMS_ITS | Clinical Summary ---
Author Organization [employer] Address [address] [place] [address] Care Team Providers Care Balance Sheet Analyst Name Role Phone Otilia Quiñones MD Primary Care Provider [phone] Allergies No known active allergies Medications hydrOXYzine [...] Encounters Date Type Department Care Team Description 03/22/2025 Telephone [facility] [address] [place], [place] [phone] Otilia Quiñones MD 03/22/2025 Orders Only GENERIC EXTERNAL DATA DEPARTMENT Provider, Generic External Data 03/15/2025 Results Follow-Up [facility] [address] [place] [address] Darling Toussaint, KATHRYN Albumin, Random Urine W/Creatinine, Comprehensive Metabolic Panel, TSH W/Reflex to FT4, Additional followed-up results: 2 03/11/2025 Orders Only [facility] [address] [place] [address] Henrique Whittaker MD Hyperthyroidism (Primary Dx); Transaminitis 03/11/2025 Orders Only [facility] [address] [place] [address] Henrique Whittaker MD 03/09/2025 1:20 PM EDT Office Visit [facility] [address] [place] [address] Henrique Whittaker MD Edema, lower extremity (Primary Dx); Sore throat 03/09/2025 10:30 AM EDT Office Visit [facility] [address] [place] [address] Yoshi Sandoval, JUDI Dental caries (Primary Dx); Gingivitis 03/09/2025 Travel 03/08/2025 Results Follow-Up [facility] [address] [place] [address] Linda Matthews, KATHRYN CT Chest w/ Contrast 02/17/2025 Results Follow-Up [facility] [address] [place] [address] Otilia Quiñones MD CT Soft Tissue Neck w/ Contrast 02/17/2025 Orders Only [facility] External Provider, [facility] 02/12/2025 Results Follow-Up [facility] [address] [place] [address] Otilia Quiñones MD CBC auto differential, Sjogren's Antibodies (SS-A,SS-B), POCT Rapid Strep A OSOM, Additional followed-up results: 2 02/10/2025 11:30 AM EDT Office Visit [facility] [address] [place] [address] Otilia Quiñones MD Dermatitis (Primary Dx); Iron deficiency anemia, unspecified iron deficiency anemia type; Palpitations; Sore throat 02/10/2025 Travel 02/09/2025 Telephone [facility] [address] [place] [address] Otilia Quiñones MD Chart Prep 02/03/2025 9:30 AM EDT Office Visit [facility] [address] [place] [address] Yoshi Sandoval DMD Partial edentulism, unspecified edentulism class (Primary Dx) 02/02/2025 1:00 PM EDT Office Visit [facility] [address] [place] [address] Yoshi Sandoval DMD Dental caries (Primary Dx) 01/28/2025 Refill [facility] [address] [place] [address] Henrique Whittaker MD RBC microcytosis 01/12/2025 11:00 AM EDT Office Visit [facility] [address] [place] [address] Yoshi Sandoval DMD Dental caries (Primary Dx); [...] 03/09/2025 1:32 PM EDT Plan of Treatment Health Maintenance Due Date Last Done Comments [...] Procedure Name Priority Date/Time Associated Diagnosis Comments T4, FREE Routine 03/22/2025 12:44 PM EDT NT-PROBNP Routine 03/22/2025 12:44 PM EDT HCG, TOTAL, QN Routine 03/22/2025 12:44 PM EDT TSH W/REFLEX TO FT4 Routine 03/22/2025 1 2:44 PM EDT HIGH SENSITIVITY TROPONIN I Routine 03/22/2025 12:44 PM EDT COMPREHENSIVE METABOLIC PANEL Routine 03/22/2025 12:44 PM EDT CBC WITH AUTO DIFFERENTIAL Routine 03/22/2025 12:44 PM EDT PROTHROMBIN TIME-INR Routine 03/19/2025 1:48 PM EDT Transaminitis HEPATITIS B SURFACE ANTIBODY, QUALITATIVE Routine 03/19/2025 1:48 PM EDT Transaminitis RETICULOCYTE COUNT Routine 03/19/2025 1: 48 PM EDT Transaminitis FERRITIN Routine 03/19/2025 1:48 PM EDT Transaminitis IRON AND TOTAL IRON BINDING CAPACITY Routine 03/19/2025 1:48 PM EDT Transaminitis ALBUMIN, RANDOM URINE W/CREATININE [...] Recently Relevant to Health Maintenance Results * High Sensitivity Troponin I (03/22/2025 12:44 PM EDT) TROPONIN I HIGH SENSITIVITY 6.5 <3.5 - 17.0 ng/L [facility] Comment:The Chand high sens itivity Troponin-I results should beused in conjunction with other diagnostic information suchas ECG, clinical observations and information, and patientsymptoms to aid in the diagnosis of CO. 03/22/2025 12:4 4 PM EDT 03/22/2025 12:46 PM EDT us Generic External Data Provider LAB BLOOD ORDERAB LES Final Result [facility] [address] [place] [phone] * (ABNORMAL) TSH with Reflex to Free T4 (03/22/2025 12:44 PM EDT) Only the most recent of2 resultswithin the time period is included. TSH reflex Free T4 <0.01(L) 0.32 - 4.0 uIU/mL [facility] 03/22/2025 12:4 4 PM EDT 03/22/2025 12:46 PM EDT us Generic External Data Provider LAB BLOOD ORDERAB LES Final Result Performing Organization Address [facility]/ZIP Co de Phone Number [facility] [address] [place] [phone] * (ABNORMAL) NT-proBNP (03/22/2025 12:44 PM EDT) NT-proBNP 589.2(H) <300 pg/mL [facility] Comment:Reference Range:Age Group (years) NT-proBNP (pg/ml) InterpretationAll <300 Negative: HF unlikelyFor patients presenting to the ED with clinical suspicion ofnew onset or worsening HF, see below:18 to <50 >299.9 to <450.0 Grayzone: [id number] to 75 >299.9 to <900.0 other causes of>75 >299.9 to <1800.0 NT-proBNP [id number] to <50 >449.9 Positive: HF [id number] >899.9>75 >1799.9Note: Elevated NT-proBNP levels should be interpreted inthe context of other clinical information. 03/22/2025 12:4 4 PM EDT 03/22/2025 12:46 PM EDT Generic External Data Provider LAB BLOOD ORDERAB LES Final Result Performing Organization Address [facility] Co de Phone Number [facility] [address] [place] [phone] * (ABNORMAL) CBC auto differential (03/22/2025 12:44 PM EDT) Only the most recent of3 resultswithin the time period is included. White Blood Count 4.0(L) 4.8 - 10.8 X10*3/uL [facility] Red Blood Count 4.86 4.20 - 5.50 X10*6/uL [facility] Hemoglobin 11.8(L) 12.0 - 16.0 g/dl [facility] Hematocrit 37.1 37.0 - 47.0 % [facility] Mean Corpuscular Volume 76.3(L) 80.0 - 98.0 fL [facility] Mean Corpuscular Hemoglobin 24.3(L) 27.0 - 33.0 pg [facility] Mean Corpuscular HGB Conc 31.8 31.0 - 35.0 g/dl [facility] Red Cell Distribution Width 12.4 11.0 - 16.0 % [facility] Platelet Count 202 160 - 400 X10*3/uL [facility] Mean Platelet Volume 11.8 9.4 - 12.3 fL [facility] Neutrophils Percent Auto 61.3 45 - 73 % [facility] Imm Gran Pct Auto 0.2 0.0 - 0.4 % [facility] Lymphocytes Percent Auto 27.0 20 - 40 % [facility] Monocytes Percent Auto 10.1 2 - 11 % [facility] Eosinophils Percent Auto 1.2 0 - 4 % [facility] Basophils Percent Auto 0.2 0 - 2 % [facility] NRBC Pct Auto 0.0 0.0 - 0.2 /100WBC [facility] Neutrophils Absolute Auto 2.5 2.0 - 8.3 x10*3/uL [facility] Imm Gran Abs Auto 0.01 0.00 - 0.03 X10*3/uL [facility] Lymphocytes Absolute Auto 1.1(L) 1.2 - 4.9 X10*3/uL [facility] Monocytes Absolute Auto 0.4 0.1 - 1.2 X10*3/uL [facility] Eosinophils Absolute Auto 0.1 0.0 - 0.4 X10*3/uL [facility] Basophils Absolute Auto 0.0 0.0 - 0.2 X10*3/uL [facility] NRBC Abs Auto 0.000 0.0 - 0.012 X10*3/uL [facility] 03/22/2025 12:4 4 PM EDT 03/22/2025 12:46 PM EDT us Generic External Data Provider LAB BLOOD ORDERAB LES Final Result Performing Organization Address [facility] Co de Phone Number [facility] [address] [place] [phone] [phone] * hCG, Total, Quantitative (03/22/2025 12:44 PM EDT) HCG Quantitative <2 mIU/mL [facility] Comment:Weeks post LMP Appro ximate hCG(Last Menstrual Period) Range (mIU/ml)3 - 4 weeks 9 - 1304 - 5 weeks 75 - 2,6005 - 6 weeks 850 - 20,8006 - 7 weeks 4000 - 100,2007 - 12 weeks 11,500 - 289,17939 - 16 weeks 18,300 - 137,02675 - 29 weeks (2nd trimester) 1,400 - 53,71574 - 41 weeks (3rd trimester) 940 - [...] ORDERAB LES Final Result Performing Organization Address [facility] Co de Phone Number [facility] [address] [place] [phone] * (ABNORMAL) T4, Free (03/22/2025 12:44 PM EDT) Only the most recent of2 resultswithin the time period is included. Free T4 (Free Thyroxine) 2.85(H) 0.71 - 1.85 ng/dL [facility] 03/22/2025 12:4 4 PM EDT 03/22/2025 12:46 PM EDT Generic External Data Provider LAB BLOOD ORDERAB LES Final Result Performing Organization Address [facility]/ZIP Co de Phone Number [facility] [address] [place] [address] [phone] * (ABNORMAL) Comprehensive Metabolic Panel (03/22/2025 12:44 PM EDT) Only the most recent of2 resultswithin the time period is included. Sodium 141 135 - 145 mmol/L [facility] Potassium 3.7 3.3 - 5.1 mmol/L [facility] Chloride 106 96 - 108 mmol/L [facility] Carbon Dioxide 27 22 - 29 mmol/L [facility] Anion Gap 12 12 - 20 [facility] Urea Nitrogen (BUN) 12 9 - 16 mg/dL [facility] Creatinine, Serum 0.50 0.5 - 1.4 mg/dL [facility] Creatinine Clr Calc Pharmacy 129.5 [facility] Comment:Provided height and weight: 162.56 cm,67.1 kg.eGFR (calculated from the MDRD study equation) and eCrCl(calculated from the Cockcroft-Gault equation) are based ondifferent parameters and may not yield comparable results.If eCrCl result is absurd, please check patient'sheight/weight. Estimated Glomerular Filt Rate >60 [facility] Comment:Chronic Kidney Disea se: Estimated GFR < 60 mL/min/1.08c5Nifchf Kidney Disease: Estimated GFR < 15 mL/min/1.73m2 Glucose 136(H) 60 - 115 mg/dL [facility] Calcium 9.6 8.4 - 10.2 mg/dL [facility] Bilirubin, Total 0.6 0.0 - 1.0 mg/dL [facility] Aspartate Amino Transferase 28 5 - 31 U/L [facility] Alanine Aminotransferase 31 0 - 31 U/L [facility] Total Protein 6.4(L) 6.5 - 8.0 g/dL [facility] Albumin Level 3.7 3.5 - 5.0 g/dL [facility] Alkaline Phosphatase 76 39 - 117 U/L [facility] 03/22/2025 12:4 4 PM EDT 03/22/2025 12:46 PM EDT us Generic External Data Provider LAB BLOOD ORDERAB LES Final Result Performing Organization Address [facility] de Phone Number [facility] [address] [place] [phone] * Iron And Total Iron Binding Capacity (03/19/2025 1:48 PM EDT) Pathologist [facility] Iron 35 30 - 160 mcg/dL [facility] Total Iron Binding Capacity 241 228 - 428 mcg/dL [facility] Percent Iron Saturation 15 15 - 50 % [facility] Unsaturated Iron Binding 206 ug/dL [facility] Blood Venous blood specimen / Unknown 03/19/2025 1:48 PM EDT 03/19/2025 2:38 PM EDT us Henrique Whittaker MD LAB BLOOD ORDERABLES Final Result Performing Organization Address [facility] de Phone Number [facility] [address] [place] [phone] * Hepatitis B Surface Antibody, Qualitative (03/19/2025 1:48 PM EDT) Pathologist [facility] ~Hepatitis B Surface Antibody NONREACTIVE Nonreactive [facility] Comment:Nonreactive: < 8.00 mIU/mL Blood Venous blood specimen / Unknown 03/19/2025 1:48 PM EDT 03/19/2025 2:38 PM EDT us Henrique Whittaker MD LAB BLOOD ORDERABLES Final Result Performing Organization Address [facility] de Phone Number [facility] [address] [place] [phone] * (ABNORMAL) Prothrombin Time-INR (03/19/2025 1:48 PM EDT) Pathologist [facility] Prothrombin Time 12.6(H) 10.9 - 12.4 SEC [facility] INTERNATIONAL NORM RATIO 1.1 0.9 - 1.1 [facility] Comment:INTERNATIONAL NORMAL IZED RATIO (INR) [...] BLOOD ORDERABLES Final Result Performing Organization Address [facility] Phone Number [facility] [address] [place] [phone] * (ABNORMAL) Reticulocyte Count (03/19/2025 1:48 PM EDT) [facility] Reticulocytes Absolute 0.043 0.026 - 0.095 X10*6/uL [facility] Immature Retic Fraction 6.5 3.0 - 15.9 % [facility] Retic HGB Equivalent 26.2(L) 30.0 - 35.0 pg [facility] Reticulocyte Percent 1.0 0.5 - 1.8 % [facility] Blood Venous blood specimen / Unknown 03/19/2025 1:48 PM EDT 03/19/2025 2:38 PM EDT us Henrique Whittaker MD LAB BLOOD ORDERABLES Final Result Performing Organization Address [facility] de Phone Number [facility] [address] [place] [phone] * Ferritin (03/19/2025 1:48 PM EDT) Ferritin 125 10 - 250 ng/mL [facility] Blood Venous blood specimen / Unknown 03/19/2025 1:48 PM EDT 03/19/2025 2:38 PM EDT Henrique Whittaker MD LAB BLOOD ORDERABLES Final Result Performing Organization Address [facility] Co de Phone Number [facility] [address] [place] [phone] * Albumin, Random Urine W/Creatinine (03/11/2025 1:50 PM EDT) Creatinine, Urine 126.46 mg/dL [facility] Microalbumin Urine 6.0 mg/L [facility] Microalbum Creatinine Ratio Ur 4.7 <30 ug/mg cr [facility] Comment:Albumin/Creatinine R atio Reference Ranges: Normal: < 30 ug/mg creatinine Microalbuminuria: 30 - 300 ug/mg creatinineClinical Albuminuria: > 300 ug/mg creatinine Urine (Urine, Random) 03/11/2025 1:50 PM EDT 03/11/2025 5:48 PM EDT us Henrique Whittaker MD LAB URINE ORDERABLES Final Result Performing Organization Address [facility] Co de Phone Number [facility] [address] [place] [phone] * T-SPOT??.TB (03/11/2025 1:46 PM EDT) T Spot TB Negative Negative [facility] Comment:A negative test resu lt [...] as aquantitative test. TS PANEL A 0 [facility] TS PANEL B 0 [facility] Negative Control Passed [facility] Positive Control Passed [facility] Comment:For additional infor mation, please refer tohttp://education.Thirst[employer]VIP/faq/EYW507(This link is being provided for informational/educational purposes only.)THIS TEST WAS PERFORMED AT:[employer] [id number] [place] [phone] BONNER MD,PHD 03/11/2025 1:46 PM EDT 03/11/2025 2:26 PM EDT us Henrique Whittaker MD LAB BLOOD ORDERABLES Final Result [facility] [address] [place] [phone] * Helicobacter pylori??Antigen, EIA, Stool (03/11/2025 9:30 AM EDT) H pylori Ag Stool SEE NOTE [facility] Comment:HELICOBACTER PYLORI AG, EIA, STOOL Micro Number: [id number] Test Status: Final Specimen Source: Stool Specimen Quality: Adequate H.pylori Ag: Not Detected Antimicrobials, proton pump inhibitors, and bismuth preparations inhibit H. pylori and ingestion up to two weeks prior to testing may cause false negative results. If clinically indicated the test should be repeated on a new specimen obtained two weeks after discontinuing treatment. Reference Range: Not DetectedTHIS TEST WAS PERFORMED AT:[employer] [address] [id number] NASSAR MD Stool Rectal contents / Unknown 03/11/2025 9:30 AM EDT 03/11/2025 2:36 PM EDT us Otilia Quiñones MD LAB BODY FLUIDS AND STOOLS OR DERABLES Final Result [facility] [address] [place] [phone] * POCT Rapid Strep A OSOM [...] PM EDT Narrative 03/05/2025 2:05 PM EDT [address] [address] [address] Scan Report Signed Patient: Geovanna Hobbs MR#: [id number] 73 : 1975 Acct:[id number] Age/Sex: 49 / F ADM Date: 03/05/25 Loc: HO.CT Attending Dr: Otilia Quiñones MD Ordering Physician: Otilia Quiñones MD Date of Service: 03/05/25 Procedure(s): CT chest w IV con Accession Number(s): [id number] cc: Otilia Quiñones MD Report Number: [id number]: Total DLP = 90.00 mGy-cm Reason for [...] 03/05/25 1402 DD/ 1332 TD/TT: 03/05/25 1345 Pest Control Worker: Procedure Note Donotuseinterpreter, Image - 03/05/[address] [address] [address] Scan Report Signed Patient: Geovanna HobbsMR#: [id number] 74 : 1975Acct:[id number] Age/Sex: 49 / FADM Date: 03/05/25 Loc: HO.CT Attending Dr: Otilia Quiñones MD Ordering Physician: Otilia Quiñones MD Date of Service: 03/05/25 Procedure(s): CT chest w IV con Accession Number(s): [id number] cc: Otilia Quiñones MD Report Number: [id number]: Total DLP = 90.00 mGy-cm Reason for [...] 03/05/25 1402 DD/ 1332 TD/TT: 03/05/25 1345 Pest Control Worker: us Otilia Quiñones MD IMG CT PROCEDURES Final Resul t * CT Soft Tissue Neck w/ Contrast (02/17/2025 12:31 PM EDT) Anatomical Region Laterality Modality Head, Neck Computed Tomogra phy 02/17/2025 12:3 1 PM EDT Narrative 02/17/2025 1:12 PM EDT [address] [address] [address] Scan Report Signed Patient: Geovanna Hobbs MR#: [id number] [birth year] : 1975 Acct:[id number] Age/Sex: 49 / F ADM Date: 02/17/25 Loc: HO.ED Attending Dr: Ordering Physician: Tin Leger MD Date of Service: 02/17/25 Procedure(s): CT soft tissue neck w IV con Accession Number(s): [id number] cc: Otilia Quiñones MD; Tin Leger MD Report Number: [id number]: Total DLP = 406.00 mGy-cm Reason for [...] Retropharangeal Space: -Normal. Parapharyngeal Fat Planes: -Normal. Instrument/Control Technician Spaces: -Normal. Anterior Cervical Space: -Normal. Imaged [...] 02/17/25 1309 DD/ 1231 TD/TT: 02/17/25 1250 Pest Control Worker: Procedure Note Donotuseinterpreter, Image - 02/17/[address] [place] [address] [address] Scan Report Signed Patient: Geovanna Hobbs#: [id number] [birth year] : 1975Acct:[id number] Age/Sex: 49 / FADM Date: 02/17/25 Loc: HO.ED Attending Dr: Ordering Physician: Tin Leger MD Date of Service: 02/17/25 Procedure(s): CT soft tissue neck w IV con Accession Number(s): [id number] cc: Otilia Quiñones MD; Tin Leger MD Report Number: [id number]: Total DLP = 406.00 mGy-cm Reason for [...] Retropharangeal Space: -Normal. Parapharyngeal Fat Planes: -Normal. Instrument/Control Technician Spaces: -Normal. Anterior Cervical Space: -Normal. Imaged [...] Boo MD Signed By: <Electronically signed by tSan Boo MD in OV> 02/17/25 1309 DD/ 1231 TD/TT: 02/17/25 1250 Pest Control Worker: [facility] External Provider IMG CT PROCEDURES Edited Result - Final * Sjogren's Antibodies (SS-A,SS-B) (02/10/2025 12:48 PM EDT) Sjogren's Antibody (SS-A) <1.0 NEG <1.0 NEG [facility] Sjogren's Antibody (SS-B) <1.0 NEG <1.0 NEG [facility] Comment:THIS TEST WAS PERFOR MED AT:[employer] [place] [phone] NASSAR MD 02/10/2025 12:4 8 PM EDT 02/10/2025 2:17 PM EDT Otilia Quiñones MD LAB BLOOD ORDERABLES Final Re sult Performing Organization Address [facility]/ZIP Co de Phone Number [facility] [address] [place] [phone] * Culture, Throat (02/10/2025 11:55 AM EDT) Throat Structure of anterior region of neck / Unknown 02/10/2025 11:55 AM EDT 02/10/2025 2:18 PM EDT Comment:Throat Narrative [facility] - 02/12/2025 11:46 AM EDT Throat Culture No Group A Beta-hemolytic Streptococci isolated. Specimen Source: Throat Otilia Quiñones MD LAB MICROBIOLOGY - GENERAL OR DERABLES Final Result Performing Organization Address [facility]/ZIP Co de Phone Number [facility] [address] [place] [phone] * Hepatitis C Antibody with Reflex to HCV, RNA, Quantitative, Real-Time PCR (10/15/2024 1:34 PM EDT) Hepatitis C Antibody Nonreactive Nonreactive [facility] Comment:Antibodies to HCV no t detected; does not exclude early acuteHCV infection. Blood Venous blood specimen / Unknown 10/15/2024 1:34 PM EDT 10/15/2024 2:19 PM EDT Otilia Quiñones MD LAB BLOOD ORDERABLES Final Re sult Performing Organization Address [facility]/ZIP Co de Phone Number [facility] [address] [place] [phone] [phone] * HIV-1/2 Antigen and Antibodies, Fourth Generation, with Reflexes (10/15/2024 1:34 PM EDT) [facility] HIV AB/AG Nonreactive Nonreactive [facility] Comment:HIV-1 p24 Ag and/or HIV-1/HIV-2 Ab not detected.A test result that is nonreactive does not exclude thepossibility of exposure to or infection with HIV-1 and/orHIV-2. Nonreactive results in this assay for individualswith prior exposure to HIV-1 and/or HIV-2 may be due toantigen and antibody levels that are below the limit ofdetection of this assay.The [employer] I/O HIV Ag/Ab Combo assay result andsupplemental assay results should be interpreted inconjunction with the patient's clinical presentation,history and other laboratory results. If the results areinconsistent with clinical evidence, additional testing issuggested to confirm the result. Blood Venous blood specimen / Unknown 10/15/2024 1:34 PM EDT 10/15/2024 2:19 PM EDT Otilia Quiñones MD LAB BLOOD ORDERABLES Final Re sult Performing Organization Address City/[facility]/ZIP Co de Phone Number [facility] [address] [place] [phone] * BI Mammogram Diagnostic Tomosynthesis Bilateral (06/17/2024 11:18 AM EST) Anatomical Region Laterality Modality Breast Bilateral Mammography 06/17/2024 11:1 8 AM EST Narrative 06/17/2024 1:06 PM EST [facility] [address] [place] [address] Mammography Report Signed Patient: Geovanna Hobbs MR#: [id number] 73 : 1975 Acct:[id number] Age/Sex: 48 / F ADM Date: 06/17/24 Loc: HO.MAMMO Attending Dr: Yunier Bentley MD Ordering Physician: Yunier Bentley MD Results: 2Beni gn Findings Date of Service: 06/17/24 Follow Up: 1 [facility] From [facility] Mamm[facility] Procedure(s): MM tomosynthesis diagnostic BI Accession Number(s): [id number] cc: Otilia Quiñones MD; Yunier Bentley MD [...] by: Criselda Jimenez DO 06/17/2024 01:03 PM [facility] Dictated By: Criselda Jimenez DO Signed By: <Electronically signed by Criselda Jimenez DO in OV> 06/17/24 1303 DD/ 1118 TD/TT: 06/17/24 1146 Pest Control Worker: Procedure Note Donotuseinterpreter, Image - 06/17/2024 [facility] [address] [place], [place] [address] Mammography Report Signed Patient: Geovanna HobbsMR#: [id number] 73 : 1975Acct:[id number] Age/Sex: 48 / FADM Date: 06/17/24 Loc: HO.MAMMO Attending Dr: Yunier Bentley MD Ordering Physician: Yunier Bentley MDResults: 2Beni gn Findings Date of Service: 06/17/24Follow Up: 1 Year From Orig inal Mammogram Procedure(s): MM tomosynthesis diagnostic BI Accession Number(s): [id number] cc: Otilia Quiñones MD; Yunier Bentley MD [...] Jimenez DO Signed By: <Electronically signed by Crsielda Jimenez DO in OV> 06/17/24 1303 DD/ 1118 TD/TT: 06/17/24 1146 Pest Control Worker: [facility] External Provider IMG BI PROCEDURES Final Result [...] along with historic and current clinical information. Usability Engineer : SEE COMMENT [facility] Comment: BK,CT(ASCP) CT screening location: [address] Interpretation/R esult: Negative for intraepithelial lesion or malignancy. [facility] LMP: 06/03/2020 [facility] Prev. BX: NONE GIVEN [facility] Prev. PAP: NONE GIVEN [facility] Review Usability Engineer : SEE COMMENT [facility] Comment: SL, CT(ASCP) CT screening location: [address] [phone] SOURCE: None given [facility] Statement Of Adequacy: SEE COMMENT [facility] Comment: Satisfactory for evaluation. Endocervical/transformation zone component absent. 08/02/2020 9:01 AM EST Thania HORN LAB PATHOLOGY ORDERABLES Final Result [facility] [address] * HPV mRNA E6/E7 (08/02/2020 9:01 AM EST) HPV nRNA E6/E7 Not Detected Not Detected [facility] Comment: Methodology: Economic Analysis Director-Mediated Amplification This assay detects E6/E7 viral messenger RNA (mRNA) from 14 high-risk HPV types (16,18,31,33,35,39,45,51,52,56,58,59,66,68). The analytical performance characteristics of this assay have been determined by [employer]. The modifications have not been cleared or approved by the FDA. This assay has been validated pursuant to the CLIA regulations and is used for clinical purposes. For additional information, please refer to http://education.Thirst[employer]IP/faq/EGA429g6 (This link if provided for information/ educational purposes only.) 08/02/2020 9:01 AM EST Thania Alvarez [facility] LAB BLOOD ORDERABLES Kelly cohen Result [facility] [address] from Last 3 Months or Most Recently Relevant to Health Maintenance Insurance [facility] C3 DENTAL-[facility] MEDICAID STAND ADULT Care Teams Balance Sheet Analyst Relationship Specialty Start Date End Date Otilia Quiñones MD [address] [place] [address] SANDOVAL Barraza [phone] PCP - General Family Medicine 09/15/13
--- OUTSIDE RECORDS SUMMARY | 2025-03-22 20:14 | XMS_ITS | Encounter Summary ---
Author Organization [employer] Address [address] [place] [address] 7t [place] [address] Care Team Providers Care Cable Respooler Name Role Phone Otilia Quiñones MD Primary Care Provider Encounter Details Date Type Department Care Team ([facility] Contact Info) Description 02/17/2025 Results Follow-Up [facility] MED & PEDS [address] [place], [place] [phone] Otilia Quiñones MD [address] [place] [address] CT Soft Tissue Neck w/ Contrast Social [...] documented as of this encounter Care Teams Cable Respooler Relationship Specialty Start Date End Date Otilia Quiñones MD [address] [place] [phone] PCP - General Family Medicine 09/15/13 documented as of this encounter
--- OUTSIDE RECORDS SUMMARY | 2025-03-22 20:14 | XMS_ITS | Encounter Summary ---
Author Organization [employer] Address [address] [place] [address] 7 [place] [address] Care Team Providers Care Legal Intern Name Role Phone Otilia Quiñones MD Primary Care Provider [phone] Reason for Visit * Reason Comments Med Refill Encounter Details Date Type Department Care Team ([facility] st Contact Info) Description 11/22/2023 Refill [facility] CH[facility] MED & PEDS [address] [place], [place] [phone] Otilia Quiñones MD [address] [place], [place] [phone] Social History Tobacco Use Types Packs/Day Years [...] documented as of this encounter Care Teams Legal Intern Relationship Specialty Start Date End Date Otilia Quiñones MD [address] [place] [phone] PCP - General Family Medicine 09/15/13 documented as of this encounter
--- OUTSIDE RECORDS SUMMARY | 2025-03-22 20:14 | XMS_ITS | Encounter Summary ---
Author Organization [employer] Address [address] [place] [address] 7t [place] [address] Care Team Providers Care Wire Splicer Name Role Phone Otilia Quiñones MD Primary Care Provider [phone] Encounter Details Date Type Department Care Team ([facility] st Contact Info) Description 11/02/2024 Orders Only [facility] CH[facility] MED & PEDS [address] [place], [place] [phone] Henrique Whittaker MD [address] [place] [address] RBC microcytosis (Primary Dx); Generalized abdominal pain [...] as of this encounter Plan of Treatment Scheduled Orders Name Type Priority Associated Diagnoses [...] EDT) Ferritin 18 10 - 250 ng/mL [facility] Blood Venous blood specimen / Unknown 11/03/2024 1:29 PM EDT 11/03/2024 2:45 PM EDT us Henrique Whittaker MD LAB BLOOD ORDERABLES Final Result [facility] [address] [place] [address] [phone] * (ABNORMAL) Iron And Total Iron Binding Capacity (11/03/2024 1:29 PM EDT) Iron 17(L) 30 - 160 mcg/dL [facility] Total Iron Binding Capacity 268 228 - 428 mcg/dL [facility] Percent Iron Saturation 6(L) 15 - 50 % [facility] Unsaturated Iron Binding 251 ug/dL [facility] Blood Venous blood specimen / Unknown 11/03/2024 1:29 PM EDT 11/03/2024 2:45 PM EDT us Henrique Whittaker MD LAB BLOOD ORDERABLES Final Result [facility] [address] [place] [phone] [phone] documented in this encounter Visit Diagnoses Diagnosis RBC microcytosis- Primary Generalized abdominal pain Abdominal pain, generalized documented in this encounter Additional Health Concerns Assessment Noted Time PHQ-9 Depression Total Score: 0 07/03/19 24 10:45 AM EST documented as of this encounter Care Teams Wire Splicer Relationship Specialty Start Date End Date Otilia Quiñones MD [address] [place] [phone] PCP - General Family Medicine 09/15/13 documented as of this encounter
--- OUTSIDE RECORDS SUMMARY | 2025-03-22 20:14 | XMS_ITS | Encounter Summary ---
Author Organization [employer] Address [address] [place] [address] [place] [address] Care Team Providers Care Primary Counselor Name Role Phone Otilia Quiñones MD Primary Care Provider [phone] Reason for Referral * Imaging (Routine) - Authorized Specialty Diagnoses / Procedures Referred By Marilynn t Referred To Contact Radiology Diagnoses Transaminitis Procedures US Abdomen Comp w elastography Henrique Whittaker MD [address] [place] [address] Phone: tel: fax: [address] Phone: tel: fax: Referral ID Status Reason Start Date Expiration Date V isits Requested Visits Authorized [id number] Authorized 03/11/2025 03/11/2026 1 1 * Consultation (Routine) - Authorized Specialty Diagnoses / Procedures Referred By Marilynn t Referred To Contact Endocrinology Diagnoses Hyperthyroidism Henrique Whittaker MD [address] [place] [address] Phone: tel: fax: [facility] Endocrinology [address] [place], [place] Phone: tel: fax: Referral ID Status Reason Start Date Expiration Date Visits Requested Visits Authorized [id number] Authorized Specialty Services Required 03/11/2025 03/11/2026 1 1 * Imaging (Urgent) - Authorized Specialty Diagnoses / Procedures Referred By Contac t Referred To Contact Radiology Diagnoses Hyperthyroidism Procedures NM Thyroid Uptake Stimulation Suppression Henrique Whittaker MD [address] [place] [address] Phone: tel: fax: [address] Phone: tel: fax: Referral ID Status Reason Start Date Expiration Date V isits Requested Visits Authorized [id number] Authorized 03/11/2025 03/11/2026 2 2 Encounter Details Date Type Department Care Team (Late st Contact Info) Description 03/11/2025 Orders Only [facility] CH[facility] MED & PEDS [address] [place] [phone] Henrique Whittaker MD [address] [place] [address] Hyperthyroidism (Primary Dx); Transaminitis Social History Tobacco [...] Routine Hyperthyroidism Expected: 03/11/2025 (Approximate), Expires: 03/11/2026 US Abdomen [...] CAPACITY Routine 03/19/2025 1:48 PM EDT Transaminitis HEPATITIS B SURFACE ANTIBODY, QUALITATIVE Routine 03/19/2025 1:48 PM EDT Transaminitis PROTHROMBIN TIME-INR Routine 03/19/2025 1:48 PM EDT Transaminitis RETICULOCYTE COUNT Routine 03/19/2025 1: 48 PM EDT Transaminitis FERRITIN Routine 03/19/2025 1:48 PM EDT Transaminitis documented in this encounter Results * (ABNORMAL) Prothrombin Time-INR (03/19/2025 1:48 PM EDT) Prothrombin Time 12.6(H) 10.9 - 12.4 SEC [facility] INTERNATIONAL NORM RATIO 1.1 0.9 - 1.1 [facility] Comment:INTERNATIONAL NORMAL IZED RATIO (INR) [...] Whittaker MD LAB BLOOD ORDERABLES Final Result [facility] [address] [place] [phone] * Hepatitis B Surface Antibody, Qualitative (03/19/2025 1:48 PM EDT) ~Hepatitis B Surface Antibody NONREACTIVE Nonreactive [facility] Comment:Nonreactive: < 8.00 mIU/mL Blood Venous blood specimen / Unknown 03/19/2025 1:48 PM EDT 03/19/2025 2:38 PM EDT Henrique Whittaker MD LAB BLOOD ORDERABLES Final Result Performing Organization Address [facility] de Phone Number [facility] [address] [place] [phone] * (ABNORMAL) Reticulocyte Count (03/19/2025 1:48 PM EDT) Pathologist [facility] Reticulocytes Absolute 0.043 0.026 - 0.095 X10*6/uL [facility] Immature Retic Fraction 6.5 3.0 - 15.9 % [facility] Retic HGB Equivalent 26.2(L) 30.0 - 35.0 pg [facility] Reticulocyte Percent 1.0 0.5 - 1.8 % [facility] Blood Venous blood specimen / Unknown 03/19/2025 1:48 PM EDT 03/19/2025 2:38 PM EDT us Henrique Whittaker MD LAB BLOOD ORDERABLES Final Result Performing Organization Address [facility] Phone Number [facility] [address] [place] [phone] * Ferritin (03/19/2025 1:48 PM EDT) Pathologist [facility] Ferritin 125 10 - 250 ng/mL [facility] Blood Venous blood specimen / Unknown 03/19/2025 1:48 PM EDT 03/19/2025 2:38 PM EDT Henrique Whittaker MD LAB BLOOD ORDERABLES Final Result Performing Organization Address [facility] de Phone Number [facility] [address] [place] [phone] * Iron And Total Iron Binding Capacity (03/19/2025 1:48 PM EDT) Iron 35 30 - 160 mcg/dL [facility] Total Iron Binding Capacity 241 228 - 428 mcg/dL [facility] Percent Iron Saturation 15 15 - 50 % [facility] Unsaturated Iron Binding 206 ug/dL [facility] Blood Venous blood specimen / Unknown 03/19/2025 1:48 PM EDT 03/19/2025 2:38 PM EDT Henrique Whittaker MD LAB BLOOD ORDERABLES Final Result [facility] [address] [place] [phone] documented in this encounter Visit Diagnoses [...] documented as of this encounter Care Teams Primary Counselor Relationship Specialty Start Date End Date Otilia Quiñones MD [address] [place] [phone] PCP - General Family Medicine 09/15/13 documented as of this encounter
[2025-03-23 17:23] LABS: Thyroglobulin 14.6 ng/mL; Thyroglobulin Antibodies 2 IU/mL (< or = 1)
== END 2025-03-22 16:39 | disposition left against medical advice (07) ==
LOC: HO.ED 15:55
PROVIDERS: Physician Assistant; Emergency Provider Emergency Medicine
DX: R07.89 Other chest pain (principal); R06.02 Shortness of breath; M54.2 Cervicalgia; R13.10 Dysphagia, unspecified; Z79.899 Other long term (current) drug therapy
CPT/HCPCS: 36415; 80053; 83520; 83880; 84432; 84439; 84443; 84445; 84484; 84702; 85025; 86800; 93005; 99283

== ENCOUNTER → 2025-03-22 10:34 | Outpatient (BNV) | payer MEDICAID, SELFPAY | PROVIDERS: Emergency Provider Emergency Medicine; Visit Provider Internal Medicine Cardiovascular Disease | DX: I51.7 Cardiomegaly (principal) | CPT/HCPCS: 93010 ==

== ENCOUNTER 2025-03-27 11:37 | Emergency (ER) | payer MEDICAID, SELFPAY ==
--- NOTE | ~2025-03-27 | XR_ITS ---
CLINICAL HISTORY: diff breathing 2 view chest x-ray. Comparison: 02/17/2025 Findings: No consolidation or effusion. Cardiac and mediastinal contours are stable. Bones unremarkable. Impression: 1. No acute pulmonary disease. This document has been electronically signed by: Jeff Hilario MD on 03/27/2025 14:14:28
--- OUTSIDE RECORDS SUMMARY | 2025-03-27 09:40 | XMS_ITS | Encounter Summary ---
Author Organization [employer] Address [address] [place] [address] 7t [place] [address] Care Team Providers Care Plaster Pattern Caster Name Role Phone Otilia Quiñones MD Primary Care Provider [phone] Encounter Details Date Type Department Care Team ([facility] st Contact Info) Description 03/27/2025 9:40 AM EDT Office Visit [facility] [address] [place] [phone] Constance Myers MD [address] [place] [address] Graves disease (Primary Dx); Sore throat; Fever and chills; Exophthalmos of both eyes; Graves' disease with exophthalmos Social History Tobacco Use Types Packs/Day Years [...] your housing situation today? I have latesha sing 03/20/[address] you li [...] Sign Reading Time Taken Comments Blood Pressure 121/72 03/27/2025 9:36 AM EDT Pulse 108 03/27/2025 9:36 AM EDT Temperature 36.9 C (98.5 F) 03/27/2025 9:36 AM EDT Respiratory Rate 18 03/27/2025 9:36 AM EDT Oxygen Saturation 99% 03/27/2025 9:36 AM EDT Inhaled Oxygen Concentration - - Weight 69.2 kg (152 lb 8 oz) 03/27/2025 9:36 AM EDT Height 162.6 cm (5' 4 ) 03/27/2025 9:36 AM EDT Body Mass Index 26.18 03/27/2025 9:36 AM EDT documented in this encounter Progress Notes * Constance Chavez MD - 03/27/2025 9:40 AM EDT Subjective Patient ID: Geovanna Hobbs is a 49 y.o. female who presents for Sick visit HPI 49 y o M w no relevant PMX Pt comes today to [facility] States having acute on chronic symptoms .States having worsening chronic throat pain described as burning sensation for the past 3 days associated with palpitations,SOB which are not new but exacerbated, States symptoms present for aprox 2 years. Johan has usually pain in her neck that radiated to her upper chest associated w dysphagia,feels tired , also reports tremors Pt is also concern w 7 days of eye swelling ,pain with eye movements, blurry vision and upon questioning diplopia Reports history of chronic dry cough that is unchanged.States having fever on and off . T max 100.1,reports some chills and hot flushes episodes. Denies currently GI symptoms but has nausea on and off ,denies symptoms ,does reports ongoing LEswelling Pt was seen with some similar symptoms minus eye complaints in [place] this month ,had lab workup which showed -03/11/2025 ALT 32 ,TSH < 0.01 ,free T4 3.12 ,Hb 11.5 MCV 78.5, T-spot neg -03/19/2025 iron panel wnl, ferritin wnl, -03/22/2025 WBC 4, Hb 11.8 MCV 76.3,Chem wnl, CE neg ,TSH < 0.01, T4 2.85, Thyroglobulin wnl, Trab elevated 21.44 , preg test neg . ProBNP elevate 589 From chart review pt was referred to [facility] and for NM thyroid scan ,not have test done yet and apt w Endo 05/2025 ------- -LMP 02/18/25 s/p tubal ligation -usually irregular Allergies[1] Review of Systems Constitutional: Positive for chills, diaphoresis, fever and unexpected weight change. HENT: Positive for trouble swallowing and voice change. Eye swelling,eye pain Eyes: Positive for pain and visual disturbance. Respiratory: Positive for cough and shortness of breath. Cardiovascular: Positive for palpitations and leg swelling. Negative for chest pain. Gastrointestinal: Positive for nausea. Negative for diarrhea and vomiting. Genitourinary: Negative. Neurological: Positive for tremors and headaches. Psychiatric/Behavioral: Positive for agitation. Objective BP 121/72 (BP Location: Left arm, Patient Position: Sitting, BP Cuff Size: Adult) Pulse 108 Temp 98.5 ??F (36.9 ??C) (Oral) Resp 18 Ht 5' 4 (1.626 m) Wt 152 lb 8 oz (69.2 kg) LMP 02/18/2025 (Approximate) SpO2 99% BMI 26.18 kg/m?? Physical Exam Constitutional: General: She is not in acute distress. Appearance: Normal appearance. She is not toxic-appearing or diaphoretic. HENT: Head: Normocephalic. Right Ear: Tympanic membrane normal. Left Ear: Tympanic membrane normal. Nose: No congestion. Mouth/Throat: Mouth: Mucous membranes are moist. Pharynx: No oropharyngeal exudate or posterior oropharyngeal erythema. Eyes: General: No scleral icterus. Extraocular Movements: Extraocular movements intact. Conjunctiva/sclera: Conjunctivae normal. Pupils: Pupils are equal, round, and reactive to light. Comments: Noted exophthalmos Bl, tenderness eyeball ,pain w eye movement MACY Neck: Comments: Enlarged thyroid noted -diffuse Cardiovascular: Rate and Rhythm: Regular rhythm. Tachycardia present. Heart sounds: No murmur heard. Pulmonary: Effort: Pulmonary effort is normal. Breath sounds: Normal breath sounds. No wheezing or rhonchi. Abdominal: General: There is no distension. Palpations: Abdomen is soft. Tenderness: There is no abdominal tenderness. Musculoskeletal: Comments: Le non pitting edema bl ,no calf tenderness Skin: Findings: No rash. Neurological: General: No focal deficit present. Mental Status: She is alert. Assessment/Plan Problem List Items Addressed This Visit Graves' disease with exophthalmos Today Flu, Covid and Strep test are neg -Relevant recent labs 03/2025 TSH < 0.01 x2 ,free T4 2.85<--- 3.12 ,Thyroglobulin wnl, Trab elevated 21.44, Hb 11.5 MCV 78.5 . ProBNP elevate 589 - CT soft tissue neck w IV con 02/17/2025 No acute findings within the neck. No mass, inflammation, or abnormal lymphadenopathy. Global thyroid enlargement without discrete dominant nodule. Pt with multiple symptoms that seems all associated w Grave's disease confirmed w recent TFT and positive antibodies I am concern with new eye symptoms that includes blurry vision , some on and off diplopia, eye painw movement and palpation since last week Pt has exophthalmos and on exam tachycardic Enlarged thyroid noted -diffuse Given severity of symptoms and Graves eye disease needs immediate attention Pt will need Propanolol and methimazole but will hold ordering now given pt will go to ER now for evaluation , pt will need IV steroids for eye disease and hopefully Endocrinology evaluation . Gave info to pt about meds needs to get from hospital I offered pt to call EMS but states she understands concerns and risk and will go today to ER but will need to go home first and states pt will call 911 from home .Will need as well evaluation w TTE with noted elevated ProBNP I called [facility] [place] to inform that pt is going ,discuss w pt option to go to [facility] to make sure she can be seen by [facility] but pt prefers to go to [facility]. -Pt had referred already by previous provider for NM thyroid scan -has apt 04/2025 and referred forEndocrinologist -has apt 05/2025 --[facility] SANDOVAL -Endy S will help calling [facility] office to request STAT evaluation on Saturday ,given today is Saturday and office will be closed -to f w PCP within 1-2 weeks to monitor symptoms -alarm signs and symptoms discussed w pt ----- Addendum : called pt at 12h00 pm and already in ER Other Visit Diagnoses Graves disease - Primary Sore throat Relevant Orders POCT Rapid Strep A FISCHER ID NOW (Completed) POCT Rapid Covid-19 FISCHER ID NOW (Completed) Fever and chills Relevant Orders POCT Rapid Influenza B FISCHER ID NOW (Completed) POCT Rapid Influenza A FISCHER ID NOW (Completed) Exophthalmos of both eyes [1] No Known Allergies documented in this encounter Miscellaneous Notes * Assessment & Plan Note - Constance Chavez MD - 03/27/2025 12:25 PM EDTAssociated Problem(s): Graves' disease with exophthalmos Today Flu, Covid and Strep test are neg -Relevant recent labs 03/2025 TSH < 0.01 x2 ,free T4 2.85<--- 3.12 ,Thyroglobulin wnl, Trab elevated 21.44, Hb 11.5 MCV 78.5 . ProBNP elevate 589 - CT soft tissue neck w IV con 02/17/2025 No acute findings within the neck. No mass, inflammation, or abnormal lymphadenopathy. Global thyroid enlargement without discrete dominant nodule. Pt with multiple symptoms that seems all associated w Grave's disease confirmed w recent TFT and positive antibodies I am concern with new eye symptoms that includes blurry vision , some on and off diplopia, eye painw movement and palpation since last week Pt has exophthalmos and on exam tachycardic Enlarged thyroid noted -diffuse Given severity of symptoms and Graves eye disease needs immediate attention Pt will need Propanolol and methimazole but will hold ordering now given pt will go to ER now for evaluation , pt will need IV steroids for eye disease and hopefully Endocrinology evaluation . Gave info to pt about meds needs to get from hospital I offered pt to call EMS but states she understands concerns and risk and will go today to ER but will need to go home first and states pt will call 911 from home .Will need as well evaluation w TTE with noted elevated ProBNP I called [facility] to inform that pt is going ,discuss w pt option to go to [facility] to make sure she can be seen by [facility] but pt prefers to go to [facility]. -Pt had referred already by previous provider for NM thyroid scan -has apt 04/2025 and referred forEndocrinologist -has apt 05/2025 --[facility] [place] -Endy S will help calling [facility] office to request STAT evaluation on Saturday ,given today is Saturday and office will be closed -to f w PCP within 1-2 weeks to monitor symptoms -alarm signs and symptoms discussed w pt ----- Addendum : called pt at 12h00 pm and already in ER documented in this encounter Plan of Treatment Not on file documented as of this encounter Procedures Procedure Name Priority Date/Time Associated Diagnosis Comments POCT INFLUENZA B (ID NOW RAPID MOLECULAR) Routine 03/27/2025 9:55 AM EDT Fever and chills POCT INFLUENZA A (ID NOW RAPID MOLECULAR) Routine 03/27/2025 9:54 AM EDT Fever and chills POCT COVID-19 AG FISCHER ID NOW Routine 03/27/2025 9:54 AM EDT Sore throat POC FISCHER ID NOW STREP A Routine 03/27/2025 9:53 AM EDT Sore throat documented in this encounter Results * POCT Rapid Influenza B FISCHER ID NOW (03/27/2025 9:55 AM EDT) Influenza B Negative Negative, Indeterminate [facility] QC Media Lot # [id number] [facility] Lot# Expiration Date [facility] Swab 03/27/2025 9:55 AM EDT Constance Chavez MD POINT OF CARE EARNESTINE T ENTER/EDIT ORDERABLES Final Result [facility] [address] [place] [phone] * POCT Rapid Covid-19 FISCHER ID NOW (03/27/2025 9:54 AM EDT) Coronavirus Antigen PCR Negative Negative, Indeterminate, None Detected, Invalid, Specimen unsatisfactory for evaluation, Weakly Positive, 2+ QC Media Lot # [id number] Lot# Expiration Date , Swab 03/27/2025 9:54 AM EDT Constance Chavez MD POINT OF CARE EARNESTINE T ENTER/EDIT ORDERABLES Final Result * POCT Rapid Influenza A FISCHER ID NOW (03/27/2025 9:54 AM EDT) Influenza A Negative Negative, Indeterminate [facility] QC Media Lot # [id number] [facility] Lot# Expiration Date [facility] Swab 03/27/2025 9:54 AM EDT Constance Chavez MD POINT OF CARE EARNESTINE T ENTER/EDIT ORDERABLES Final Result [facility] [address] [place] [phone] [phone] * POCT Rapid Strep A FISCHER ID NOW (03/27/2025 9:53 AM EDT) Rapid Strep A Screen Negative Negative, None Detected QC Media Lot # [id number] Lot# Expiration Date Swab 03/27/2025 9:53 AM EDT Constance Chavez MD POINT OF CARE EARNESTINE T ENTER/EDIT ORDERABLES Final Result documented in this encounter Visit Diagnoses Diagnosis Graves disease- Primary Toxic diffuse goiter without mention of thyrotoxic crisis or storm Sore throat Acute pharyngitis Fever and chills Fever, unspecified 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
[2025-03-27 11:43] VITALS: BP 123/62; PULSE 84; O2SAT 98
--- NOTE | 2025-03-27 11:44 | ECG_ITS ---
Test Reason : CP Blood Pressure : */* mmHG Vent. Rate : 83 BPM Atrial Rate : 83 BPM P-R Int : 160 ms QRS Dur : 80 ms QT Int : 380 ms P-R-T Axes : 66 43 43 degrees QTcB Int : 446 ms Normal sinus rhythm Normal ECG When compared with ECG of 22-Mar-2025 10:41, No significant change was found Referred By: Generic ED Physician Electronically Signed By: TAIWO MARTINEZ MD
[2025-03-27 12:04] VITALS: BP 117/77; PULSE 77; RESP 16; TEMP 36.4; O2SAT 100; BMI 25.5
--- NOTE | 2025-03-27 12:13 | ED_ITS ---
HPI - General Adult General Chief complaint: General Medical Stated complaint: chest pain x2 weeks Time Seen by Provider: 03/27/25 11:54 Source: patient and EMS Mode of arrival: EMS Limitations: no limitations History of Present Illness ED Provider: Augusta Hill APRN HPI narrative: This is a 49-year-old female who presents the ER with 2 years of swelling in her legs, arms and face with discomfort in her throat and intermittent hoarse voice. She reports she had a history of hyperthyroidism and then hypothyroidism but is not currently taking any medication. She tells me this was managed by her primary care doctor and she did not see an store clerk checker. She reports her symptoms have worsened over the last 6 months and this week she noticed that her voice seems more hoarse and she had more swelling in the area. She went to urgent care and there was concern that the patient may have thyroid storm versus myxedema and she was referred into the emergency room for further evaluation. Patient denies difficulty swallowing or breathing, chest pain, abdominal pain, vomiting, palpitations. Of note she has had extensive imaging including but not limited to a soft tissue neck CT on 02/17/25 which showed global thyroid enlargement without a discrete nodule. No mass inflammation or lymphadenopathy noted. She had a negative head and neck ultrasound September of 2024. She had a upper GI barium swallow in September of 2024 which showed a small hiatal hernia otherwise normal. She came to the ER on 03/22 but left without completing treatment. At that time she had an elevated BNP, TSH <0/01 and free t4 2.85. Related Data Home Medications ?Medication ?Instructions ?Recorded ?Confirmed clonidine HCl 0.2 mg tablet 0.2 mg PO BEDTIME 11/16/24 11/16/24 Previous Rx's ?Medication ?Instructions ?Recorded omeprazole 40 mg capsule,delayed 40 mg PO DAILY #20 ca ps 04/24/24 release ondansetron 4 mg disintegrating 4 mg PO Q6-8H PRN naus ea and 04/24/24 tablet vomiting #7 tabs atenolol 25 mg tablet 25 mg PO DAILY #30 tabs 03/04 10/25 Allergies Allergy/AdvReac Type Severity Reaction Status Date / Time No Known Allergies (No Known Allergy Verified 03/27/25 12:05 Allergies*) Review of Systems 2 Review of Systems: Yes all other systems are reviewed and are negative Constitutional: Constitutional: Reports no additional constitutional complaints, Denies body ache(s), Denies chills, Denies fever(s), Denies headache(s) and Denies weakness Eyes: Eyes: Reports no additional eye complaints and Denies change in vision ENT: Reports system reviewed and no additional complaints, except as documented, Denies dizziness, Denies headache(s), Denies nasal congestion, Denies nasal discharge, Reports neck pain and Reports sore throat Cardiovascular: Cardiovascular: Reports no additional cardiovascular complaints, Denies chest pain, Reports leg edema and Reports dyspnea Respiratory: Respiratory: Reports no additional respiratory complaints, Denies cough and Reports dyspnea Gastrointestinal: Gastrointestinal: Reports no additional gastrointestinal complaints, Denies abdominal pain, Denies diarrhea, Denies nausea and Denies vomiting Genitourinary: Genitourinary: Reports no additional female genitourinary complaints and Denies urinary incontinence Musculoskeletal: Musculoskeletal: Reports no additional musculoskeletal complaints, Denies back pain, Denies arthralgias, Denies joint swelling, Reports neck pain, Denies numbness and Denies tingling Integumentary/Breasts: Skin/Breast: Reports system reviewed and no additional complaints, except as docu and Denies rash Neurologic: Reports system reviewed and no additional complaints, except as documented, Denies Abnormal speech present, Denies dizziness, Denies headache(s), Denies numbness, Denies tingling and Denies weakness PMFSH Past Medical History Attestation statement: The following information was validated with the patient. Source: old records reviewed and nursing notes reviewed Medical History Throat pain Prolapsed hemorrhoids Bleeding hemorrhoids Smoker Anxiety Surgical History History of tubal ligation H/O section Family History Family History Maternal Grandmother Breast cancer Social History Social History Substance Use Type: Marijuana Physical Exam ED Vital Signs: Vital Signs - 24 hr 03/27/25 12:04 03/27/25 14:58 03/27/25 16:17 Temperature 97.6 F 98.2 F 98.2 F Pulse Rate 77 99 99 Respiratory Rate 16 20 20 Blood Pressure 117/77 118/66 118/66 Pulse Oximetry 100 100 100 Oxygen Delivery Method Room Air Room Air Room Air BMI result Body Mass Index 25.5 Const General: cooperative, healthy appearing, comfortable and no acute distress Orientation/consciousness: patient oriented x3 Limitations: no limitations HENMT Head: Yes normal to inspection Ears: hearing grossly normal bilaterally and TM's normal bilaterally General nose exam: Normal external nose present Face and sinus: Yes normal facial exam Mouth: Normal oral and palatal mucosa present Throat: Yes posterior oropharynx normal, Yes tonsils normal and Yes uvula midline Eyes General: appearance normal, both eyes and all related structures Pupils: Equal, round and reactive pupils present Neck Neck: Yes normal visual inspection, Yes full ROM, Yes no lymphadenopathy and Yes no meningeal signs Thyroid: diffusely enlarged and no masses Chest Chest palpation & inspection: normal inspection of the chest Resp Effort & Inspection: normal respiratory effort Auscultation: clear to auscultation bilaterally Cardio Rate: regular rate Rhythm: regular rhythm Peripheral pulses: Peripheral pulses 2+ throughout GI Inspection: Yes normal to inspection Palpation (GI): Soft to palpation and nontender Auscultation: normal bowel sounds Back/Spine/Pelvis Thoracic/Lumbar Spine: thoracic and lumbar spine normal to inspection Skin General skin exam: no rashes or lesions noted Neuro General: patient oriented x3, no meningeal signs, no focal motor deficits and normal sensation to monofilament Cranial nerves: Yes Equal, round and reactive pupils present Cognition (Neuro): normal cognition Speech: No Abnormal speech present Gait exam (Neuro): Normal gait present Motor exam (neuro): 5/5 motor strength present throughout Extrem General: Yes normal to inspection and Yes pedal edema (non pitting ) Course Course Course Narrative: Labs show a low TSH with an elevated free T4. Teeth 3 and thyroid immunoglobulin are pending. This is most consistent with hyperthyroidism. Patient is not in a thyroid storm she has no tachycardia or hypertension. Her labs do show a elevated BNP but her chest x-ray shows no signs of congestive heart failure or in her EKG is nonischemic with a flat troponin. She has no JVD or signs that are concerning for congestive heart failure so I doubt this is suggestive of the same. The patient is not currently on any medications for hyperthyroidism. I reached out to her primary care doctor. Her primary care on-call called back. We discussed the patient. They recommended atenolol 25 mg daily. A thyroid uptake scan and endocrinology referral were placed. They recommended holding methimazole until her thyroid scan is back. They will see her in the office next week. I did discuss this with the patient. She is aware of the plan of care. We went over worrisome signs and symptoms of when she should return to the emergency room. She is comfortable plan for discharge home Medications Administered Discontinued Medications Generic Name Dose Route Start Last Admin Trade Name Mirella PRN Reason Stop Dose Admin Acetaminophen 975 mg 03/27/25 14:37 03/27/25 15:30 Acetaminophen 325 Mg Tablet PO 03/27/25 14:38 Not Given ONCE ONE Medical Decision Making Medical Decision Making [facility] Narrative: This is a 49-year-old female who presents the ER with 2 years of swelling in her legs, arms and face with discomfort in her throat and intermittent hoarse voice. She reports she had a history of hyperthyroidism and then hypothyroidism but is not currently taking any medication. She tells me this was managed by her primary care doctor and she did not see an store clerk checker. She reports her symptoms have worsened over the last 6 months and this week she noticed that her voice seems more hoarse and she had more swelling in the area. She went to urgent care and there was concern that the patient may have thyroid storm versus myxedema and she was referred into the emergency room for further evaluation. Patient denies difficulty swallowing or breathing, chest pain, abdominal pain, vomiting, palpitations. Of note she has had extensive imaging including but not limited to a soft tissue neck CT on 02/17/25 which showed global thyroid enlargement without a discrete nodule. No mass inflammation or lymphadenopathy noted. She had a negative head and neck ultrasound September of 2024. She had a upper GI barium swallow in September of 2024 which showed a small hiatal hernia otherwise normal. She came to the ER on 03/22 but left without completing treatment. At that time she had an elevated BNP, TSH <0/01 and free t4 2.85. Patient's posterior oropharynx is normal. Her uvula is midline. She has no difficulty swallowing or tolerating her secretions. Her thyroid is diffusely enlarged. There is no nodule or mass noted. No lymphadenopathy. Her lungs are clear. She has no stridor. She does have some diffuse swelling noted over her legs and hands which is nonpitting. She is alert and oriented. Her vitals are stable. Will obtain labs including thyroid panel, EKG, chest x-ray, viral testing and strep testing Differential Diagnosis Differential Diagnoses: The differential diagnosis associated with the presentation includes Thyroiditis Doubt thyroid storm, myxedema Admission/Observation Consideration of admission/observation: Escalation of care including admission/observation considered Consult Healthcare Provider Management of the patient was discussed with: Primary Care Provider Kristi Calderon 1615 Lab Data MDM Lab Attestation statement: I reviewed the patient's lab results. 03/27/25 12:43 03/27/25 12:43 Labs: Lab Results 03/27/25 Range/Units 12:43 WBC 3.8 L (4.8-10.8) X10*3/uL RBC 4.61 (4.20-5.50) X10*6/uL Hgb 11.1 L (12.0-16.0) g/dl Hct 35.4 L (37.0-47.0) % MCV 76.8 L (80.0-98.0) fL MCH 24.1 L (27.0-33.0) pg MCHC 31.4 (31.0-35.0) g/dl RDW 12.3 (11.0-16.0) % Plt Count 176 (160-400) X10*3/uL MPV 11.9 (9.4-12.3) fL Immature Gran % (Auto) 0.3 (0.0-0.4) % Neut % (Auto) 53.6 (45-73) % Lymph % (Auto) 31.8 (20-40) % [place] % (Auto) 11.9 H (2-11) % Eos % (Auto) 2.1 (0-4) % Baso % (Auto) 0.3 (0-2) % Lymph # (Auto) 1.2 (1.2-4.9) X10*3/uL [place] # (Auto) 0.5 (0.1-1.2) X10*3/uL Eos # (Auto) 0.1 (0.0-0.4) X10*3/uL Baso # (Auto) 0.0 (0.0-0.2) X10*3/uL Abs Immat Gran (auto) 0.01 (0.00-0.03) X10*3/uL Absolute Neuts (auto) 2.0 (2.0-8.3) x10*3/uL Absolute Nucleated RBC 0.000 (0.0-0.012) X10*3/uL Nucleated RBC % (auto) 0.0 (0.0-0.2) /100WBC PT 12.5 H (10.9-12.4) SEC INR 1.1 (0.9-1.1) Sodium 144 (135-145) mmol/L Potassium 4.2 (3.3-5.1) mmol/L Chloride 108 (96-108) mmol/L Carbon Dioxide 28 (22-29) mmol/L Anion Gap 12 (12-20) BUN 11 (9-16) mg/dL Creatinine 0.49 L (0.5-1.4) mg/dL Estim Creat Clear Calc 132.4 Estimated GFR > 60 Random Glucose 89 (60-115) mg/dL Calcium 9.7 (8.4-10.2) mg/dL Magnesium 1.6 (1.6-2.6) mg/dL Total Bilirubin 0.6 (0.0-1.0) mg/dL AST 33 H (5-31) U/L ALT 27 (0-31) U/L Alkaline Phosphatase 72 (39-117) U/L Troponin I High Sens 3.5 (<3.5-17.0) ng/L NT-Pro-B Natriuret Pep 804.7 H (<300) pg/mL Total Protein 6.6 (6.5-8.0) g/dL Albumin 3.8 (3.5-5.0) g/dL TSH < 0.01 L (0.32-4.0) uIU/mL Free T4 3.16 H (0.71-1.85) ng/dL Beta HCG, Quant < 2 mIU/mL COVID-19 (DURGA) Negative (Negative) COVID-19 Clin Com See Note Influenza Type A (ABIGAIL) Negative (Negative) Influenza Type B (ABIGAIL) Negative (Negative) Influenza A & B Note See Note S. pyogenes GrpA ABIGAIL Negative (Negative) Independent Interpretation I performed an independent interpretation of an: EKG and Plain X-Ray Interpretation: I independently viewed the EKG which shows normal sinus rhythm with a rate of 83, normal DE, normal QRS, normal QT I independently viewed the x-ray and agree with the radiology report Radiology Impression Discussion of test interpretation with radiology: I have reviewed the radiologist's reading. Radiologist Impression: [id number] [place] [address] XRay Report Signed Patient: Geovanna Hobbs MR#: [id number] : 1975 Acct:[id number] Age/Sex: 49 / F ADM Date: 03/27/25 Loc: HO.ED Attending Dr: Ordering Physician: Augusta Hill NP Date of Service: 03/27/25 Procedure(s): XR chest 2V Accession Number(s): [id number] cc: Otilia Quiñones MD; Augusta Hill NP~ Reason for Exam: diff breathing CLINICAL HISTORY: diff breathing 2 view chest x-ray. Comparison: 02/17/2025 Findings: No consolidation or effusion. Cardiac and mediastinal contours are stable. Bones unremarkable. Impression: 1. No acute pulmonary disease. This document has been electronically signed by: Jeff Hilario MD on 03/27/2025 14:14:28 Independent Historian Clinical information obtained from an independent historian. History obtained from or confirmed by: EMS Critical Care Time Critical Care Time Critical Care Time: Yes Total Critical Care Time: 60 Attestation: Time includes: direct patient care, patient reassessment, coordination of patient care, interpretation of data,review of patient's medical records, medical consultation and documentation of patient care. Discharge Plan Discharge Clinical Impression: Hyperthyroidism Patient Disposition: Home, Self-Care Instructions: Hyperthyroidism (ED) Additional Instructions: Call your primary care doctor on Saturday to be seen next week We spoke with them today. We are starting you on atenolol which you should take once daily They ordered a thyroid scan and will reach out to you to schedule this. They also placed a referral to endocrinology. They do want to see you next week so make sure you call them. Return for any worsening symptoms. Prescriptions: New atenolol 25 mg tablet 25 mg PO DAILY Qty: 30 0RF No Action omeprazole 40 mg capsule,delayed release(DR/EC) 40 mg PO DAILY Qty: 20 0RF ondansetron 4 mg tablet,disintegrating 4 mg PO Q6-8H PRN (Reason: nausea and vomiting) Qty: 7 0RF clonidine HCl 0.2 mg tablet 0.2 mg PO BEDTIME Referrals: Otilia Quiñones MD [Primary Care Provider, Medical] - 3 days Interventions: ED Discharge Assessment Last Done: 03/27/25 16:17 Discharge Date/Time: 03/27/25 16:18 Print Language: Slovenian
[2025-03-27 12:49] LABS: MANUAL DIFF FLAG NO
--- OUTSIDE RECORDS SUMMARY | 2025-03-27 12:50 | XMS_ITS | Encounter Summary ---
Author Organization [employer] Address [address] [facility] [address] [place] [address] Care Team Providers Care Lumber Kiln Operator Name Role Phone Otilia Quiñones MD Primary Care Provider [phone] Encounter Details Date Type Department Care Team (Late st Contact Info) Description 03/22/2025 Telephone [employer] [address] [place] [address] Otilia Quiñones MD [address] [place], [place] [phone] Social History Tobacco Use Types Packs/Day Years [...] documented as of this encounter Care Teams Lumber Kiln Operator Relationship Specialty Start Date End Date Otilia Quiñones MD [address] [place] [address] PCP - General Family Medicine 09/15/13 documented as of this encounter
--- OUTSIDE RECORDS SUMMARY | 2025-03-27 12:50 | XMS_ITS | Encounter Summary ---
Author Organization [employer] Address [address] [facility] [address] [place] [address] Care Team Providers Care Job Development Specialist Name Role Phone Otilia Quiñones MD Primary Care Provider [phone] Encounter Details Date Type Department Care Team (Late st Contact Info) Description 03/28/2023 Abstract [facility] [address] [place] [address] Otilia Quiñones MD [address] [place], [place] [phone] Social History Tobacco Use Types Packs/Day Years [...] on filedocumented in this encounter Care Teams Job Development Specialist Relationship Specialty Start Date End Date Otilia Quiñones MD [address] [place] [address] PCP - General Family Medicine 09/15/13 documented as of this encounter
--- OUTSIDE RECORDS SUMMARY | 2025-03-27 12:50 | XMS_ITS | Encounter Summary ---
Author Organization [employer] Address [address] [place] [address] 7t [place] [address] Care Team Providers Care Methods Specialist Engineer Name Role Phone Otilia Quiñones MD Primary Care Provider [phone] Encounter Details Date Type Department Care Team ([facility] st Contact Info) Description 11/02/2024 Orders Only [facility] MED & PEDS [address] [place], [place] [phone] Henrique Whittaker MD [address] [place] [address] RBC microcytosis (Primary Dx); Generalized abdominal pain [...] EDT) Ferritin 18 10 - 250 ng/mL [facility] Blood Venous blood specimen / Unknown 11/03/2024 1:29 PM EDT 11/03/2024 2:45 PM EDT us Henrique Whittaker MD LAB BLOOD ORDERABLES Final Result [facility] [address] [place] [address] [phone] * (ABNORMAL) Iron And Total Iron Binding Capacity (11/03/2024 1:29 PM EDT) Iron 17(L) 30 - 160 mcg/dL [facility] Total Iron Binding Capacity 268 228 - 428 mcg/dL [facility] Percent Iron Saturation 6(L) 15 - 50 % [facility] Unsaturated Iron Binding 251 ug/dL [facility] Blood Venous blood specimen / Unknown 11/03/2024 1:29 PM EDT 11/03/2024 2:45 PM EDT us Henrique Whittaker MD LAB BLOOD ORDERABLES Final Result [facility] [address] [place] [phone] [phone] documented in this encounter Visit Diagnoses Diagnosis RBC microcytosis- Primary Generalized abdominal pain Abdominal pain, generalized documented in this encounter Additional Health Concerns Assessment Noted Time PHQ-9 Depression Total Score: 0 07/03/19 24 10:45 AM EST documented as of this encounter Care Teams Methods Specialist Engineer Relationship Specialty Start Date End Date Otilia Quiñones MD [address] [place] [phone] PCP - General Family Medicine 09/15/13 documented as of this encounter
--- OUTSIDE RECORDS SUMMARY | 2025-03-27 12:50 | XMS_ITS | Encounter Summary ---
Author Organization [employer] Address [address] [place] [address] [place] [address] Care Team Providers Care 911 Telecommunicator Name Role Phone Otilia Quiñones MD Primary Care Provider [phone] Reason for Referral * Imaging (Routine) - Authorized Specialty Diagnoses / Procedures Referred By Marilynn t Referred To Contact Radiology Diagnoses Transaminitis Procedures US Abdomen Comp w elastography Henrique Whittaker MD [address] [place] [address] Phone: tel: fax: [address] Phone: tel: fax: Referral ID Status Reason Start Date Expiration Date V isits Requested Visits Authorized [id number] Authorized 03/11/2025 03/11/2026 1 1 * Consultation (Routine) - Authorized Specialty Diagnoses / Procedures Referred By Marilynn t Referred To Contact Endocrinology Diagnoses Hyperthyroidism Henrique Whittaker MD [address] [place] [address] Phone: tel: fax: [facility] Endocrinology [address] [place], [place] Phone: tel: fax: Referral ID Status Reason Start Date Expiration Date Visits Requested Visits Authorized [id number] Authorized Specialty Services Required 03/11/2025 03/11/2026 1 1 * Imaging (Urgent) - Authorized Specialty Diagnoses / Procedures Referred By Contac t Referred To Contact Radiology Diagnoses Hyperthyroidism Procedures NM Thyroid Uptake Stimulation Suppression Henrique Whittaker MD [address] [place] [address] Phone: tel: fax: [address] Phone: tel: fax: Referral ID Status Reason Start Date Expiration Date V isits Requested Visits Authorized [id number] Authorized 03/11/2025 03/11/2026 2 2 Encounter Details Date Type Department Care Team (Late st Contact Info) Description 03/11/2025 Orders Only [facility] CHC MED & PEDS [address] [place] [phone] Henrique Whittaker MD [address] [place] [address] Hyperthyroidism (Primary Dx); Transaminitis Social History Tobacco [...] Prothrombin Time 12.6(H) 10.9 - 12.4 SEC [facility] INTERNATIONAL NORM RATIO 1.1 0.9 - 1.1 [facility] Comment:INTERNATIONAL NORMAL IZED RATIO (INR) [...] Whittaker MD LAB BLOOD ORDERABLES Final Result [facility] [address] [place] [phone] * Hepatitis B Surface Antibody, Qualitative (03/19/2025 1:48 PM EDT) ~Hepatitis B Surface Antibody NONREACTIVE Nonreactive [facility] Comment:Nonreactive: < 8.00 mIU/mL Blood Venous blood specimen / Unknown 03/19/2025 1:48 PM EDT 03/19/2025 2:38 PM EDT Henrique Whittaker MD LAB BLOOD ORDERABLES Final Result Performing Organization Address [facility] de Phone Number [facility] [address] [place] [phone] * (ABNORMAL) Reticulocyte Count (03/19/2025 1:48 PM EDT) Pathologist [facility] Reticulocytes Absolute 0.043 0.026 - 0.095 X10*6/uL [facility] Immature Retic Fraction 6.5 3.0 - 15.9 % [facility] Retic HGB Equivalent 26.2(L) 30.0 - 35.0 pg [facility] Reticulocyte Percent 1.0 0.5 - 1.8 % [facility] Blood Venous blood specimen / Unknown 03/19/2025 1:48 PM EDT 03/19/2025 2:38 PM EDT us Henrique Whittaker MD LAB BLOOD ORDERABLES Final Result Performing Organization Address [facility] Phone Number [facility] [address] [place] [phone] * Ferritin (03/19/2025 1:48 PM EDT) Pathologist [facility] Ferritin 125 10 - 250 ng/mL [facility] Blood Venous blood specimen / Unknown 03/19/2025 1:48 PM EDT 03/19/2025 2:38 PM EDT Henrique Whittaker MD LAB BLOOD ORDERABLES Final Result Performing Organization Address [facility] de Phone Number [facility] [address] [place] [phone] * Iron And Total Iron Binding Capacity (03/19/2025 1:48 PM EDT) Iron 35 30 - 160 mcg/dL [facility] Total Iron Binding Capacity 241 228 - 428 mcg/dL [facility] Percent Iron Saturation 15 15 - 50 % [facility] Unsaturated Iron Binding 206 ug/dL [facility] Blood Venous blood specimen / Unknown 03/19/2025 1:48 PM EDT 03/19/2025 2:38 PM EDT Henrique Whittaker MD LAB BLOOD ORDERABLES Final Result [facility] [address] [place] [phone] documented in this encounter Visit Diagnoses [...] documented as of this encounter Care Teams 911 Telecommunicator Relationship Specialty Start Date End Date Otilia Quiñones MD [address] [place] [phone] PCP - General Family Medicine 09/15/13 documented as of this encounter
--- OUTSIDE RECORDS SUMMARY | 2025-03-27 12:50 | XMS_ITS | Encounter Summary ---
Author Organization [employer] Address [address] [facility] [address] [place] [address] Care Team Providers Care Aircraft Life Support Fitter Name Role Phone Otilia Quiñones MD Primary Care Provider [phone] Encounter Details Date Type Department Care Team [...] as of this encounter Plan of Treatment Pending Results Name Type Priority Associated Diagnoses Date /Time Thyroglobulin Panel Lab Routine 03/22 12:44 PM EDT TRAb (TSH Receptor Binding Antibody) Lab Routine 03/22/2025 12:44 PM EDT documented as of this encounter Procedures Procedure Name Priority Date/Time Associated Diagnosis Comments HIGH SENSITIVITY TROPONIN I Routine 03/22/2025 12:44 PM EDT TSH W/REFLEX TO FT4 Routine 03/22/2025 1 2:44 PM EDT NT-PROBNP Routine 03/22/2025 12:44 PM EDT CBC WITH AUTO DIFFERENTIAL Routine 03/22/2025 12:44 PM EDT TRAB (TSH RECEPTOR BINDING ANTIBODY) Routine 03/22/2025 12:44 PM EDT THYROGLOBULIN PANEL Routine 03/22/2025 1 2:44 PM EDT HCG, TOTAL, QN Routine 03/22/2025 12:44 PM EDT T4, FREE Routine 03/22/2025 12:44 PM EDT COMPREHENSIVE METABOLIC PANEL Routine 03/22/2025 12:44 PM EDT documented in this encounter Results * (ABNORMAL) T4, Free (03/22/2025 12:44 PM EDT) Free T4 (Free Thyroxine) 2.85(H) 0.71 - 1.85 ng/dL [facility] 03/22/2025 12:4 4 PM EDT 03/22/2025 12:46 PM EDT us Generic External Data Provider LAB BLOOD ORDERAB LES Final Result Performing Organization Address City/[facility]/ZIP Co de Phone Number [facility] [address] [place] [phone] * (ABNORMAL) NT-proBNP (03/22/2025 12:44 PM EDT) NT-proBNP 589.2(H) <300 pg/mL [facility] Comment:Reference Range:Age Group (years) NT-proBNP (pg/ml) InterpretationAll <300 Negative: HF unlikelyFor patients presenting to the ED with clinical suspicion ofnew onset or worsening HF, see below:18 to <50 >299.9 to <450.0 Grayzone: [id number] to 75 >299.9 to <900.0 other causes of>75 >299.9 to <1800.0 NT-proBNP [id number] to <50 >449.9 Positive: HF [id number] >899.9>75 >1799.9Note: Elevated NT-proBNP levels should be interpreted inthe context of other clinical information. 03/22/2025 12:4 4 PM EDT 03/22/2025 12:46 PM EDT Generic External Data Provider LAB BLOOD ORDERAB LES Final Result Performing Organization Address City/[facility]/ZIP Co de Phone Number [facility] [address] [place] [phone] * hCG, Total, Quantitative (03/22/2025 12:44 PM EDT) HCG Quantitative <2 mIU/mL [facility] Comment:Weeks post LMP Appr oximate hCG(Last Menstrual Period) Range (mIU/ml)3 - 4 weeks 9 - 1304 - 5 weeks 75 - 2,6005 - 6 weeks 850 - 20,8006 - 7 weeks 4000 - 100,2007 - 12 weeks 11,500 - 289,44137 - 16 weeks 18,300 - 137,67977 - 29 weeks (2nd trimester) 1,400 - 53,37935 - 41 weeks (3rd trimester) 940 - [...] ORDERAB LES Final Result Performing Organization Address City/[facility]/ZIP Co de Phone Number [facility] [address] [place] [phone] * (ABNORMAL) TSH with Reflex to Free T4 (03/22/2025 12:44 PM EDT) TSH reflex Free T4 <0.01(L) 0.32 - 4.0 uIU/mL [facility] 03/22/2025 12:4 4 PM EDT 03/22/2025 12:46 PM EDT Generic External Data Provider LAB BLOOD ORDERAB LES Final Result Performing Organization Address City/[facility] Co de Phone Number [facility] [address] [place] [phone] * High Sensitivity Troponin I (03/22/2025 12:44 PM EDT) TROPONIN I HIGH SENSITIVITY 6.5 <3.5 - 17.0 ng/L [facility] Comment:The Chand high sens itivity Troponin-I results should beused in conjunction with other diagnostic information suchas ECG, clinical observations and information, and patientsymptoms to aid in the diagnosis of ME. 03/22/2025 12:4 4 PM EDT 03/22/2025 12:46 PM EDT Generic External Data Provider LAB BLOOD ORDERAB LES Final Result [facility] [address] [place], [place] [phone] * (ABNORMAL) Comprehensive Metabolic Panel (03/22/2025 12:44 PM EDT) Sodium 141 135 - 145 mmol/L [facility] Potassium 3.7 3.3 - 5.1 mmol/L [facility] Chloride 106 96 - 108 mmol/L [facility] Carbon Dioxide 27 22 - 29 mmol/L [facility] Anion Gap 12 12 - 20 [facility] Urea Nitrogen (BUN) 12 9 - 16 mg/dL [facility] Creatinine, Serum 0.50 0.5 - 1.4 mg/dL [facility] Creatinine Clr Calc Pharmacy 129.5 [facility] Comment:Provided height and weight: 162.56 cm,67.1 kg.eGFR (calculated from the MDRD study equation) and eCrCl(calculated from the Cockcroft-Gault equation) are based ondifferent parameters and may not yield comparable results.If eCrCl result is absurd, please check patient'sheight/weight. Estimated Glomerular Filt Rate >60 [facility] Comment:Chronic Kidney Disea se: Estimated GFR < 60 mL/min/1.78t3Bcbnqt Kidney Disease: Estimated GFR < 15 mL/min/1.73m2 Glucose 136(H) 60 - 115 mg/dL [facility] Calcium 9.6 8.4 - 10.2 mg/dL [facility] Bilirubin, Total 0.6 0.0 - 1.0 mg/dL [facility] Aspartate Amino Transferase 28 5 - 31 U/L [facility] Alanine Aminotransferase 31 0 - 31 U/L [facility] Total Protein 6.4(L) 6.5 - 8.0 g/dL [facility] Albumin Level 3.7 3.5 - 5.0 g/dL [facility] Alkaline Phosphatase 76 39 - 117 U/L [facility] 03/22/2025 12:4 4 PM EDT 03/22/2025 12:46 PM EDT us Generic External Data Provider LAB BLOOD ORDERAB LES Final Result [facility] [address] [place] [phone] * (ABNORMAL) CBC auto differential (03/22/2025 12:44 PM EDT) White Blood Count 4.0(L) 4.8 - 10.8 X10*3/uL [facility] Red Blood Count 4.86 4.20 - 5.50 X10*6/uL [facility] Hemoglobin 11.8(L) 12.0 - 16.0 g/dl [facility] Hematocrit 37.1 37.0 - 47.0 % [facility] Mean Corpuscular Volume 76.3(L) 80.0 - 98.0 fL [facility] Mean Corpuscular Hemoglobin 24.3(L) 27.0 - 33.0 pg [facility] Mean Corpuscular HGB Conc 31.8 31.0 - 35.0 g/dl [facility] Red Cell Distribution Width 12.4 11.0 - 16.0 % [facility] Platelet Count 202 160 - 400 X10*3/uL [facility] Mean Platelet Volume 11.8 9.4 - 12.3 fL [facility] Neutrophils Percent Auto 61.3 45 - 73 % [facility] Imm Gran Pct Auto 0.2 0.0 - 0.4 % [facility] Lymphocytes Percent Auto 27.0 20 - 40 % [facility] Monocytes Percent Auto 10.1 2 - 11 % [facility] Eosinophils Percent Auto 1.2 0 - 4 % [facility] Basophils Percent Auto 0.2 0 - 2 % [facility] NRBC Pct Auto 0.0 0.0 - 0.2 /100WBC [facility] Neutrophils Absolute Auto 2.5 2.0 - 8.3 x10*3/uL [facility] Imm Gran Abs Auto 0.01 0.00 - 0.03 X10*3/uL [facility] Lymphocytes Absolute Auto 1.1(L) 1.2 - 4.9 X10*3/uL [facility] Monocytes Absolute Auto 0.4 0.1 - 1.2 X10*3/uL [facility] Eosinophils Absolute Auto 0.1 0.0 - 0.4 X10*3/uL [facility] Basophils Absolute Auto 0.0 0.0 - 0.2 X10*3/uL [facility] NRBC Abs Auto 0.000 0.0 - 0.012 X10*3/uL [facility] 03/22/2025 12:4 4 PM EDT 03/22/2025 12:46 PM EDT us Generic External Data Provider LAB BLOOD ORDERAB LES Final Result Performing Organization Address City/State/[facility] Co de Phone Number [facility] [address] [place] [phone] documented in this encounter Visit Diagnoses Not on filedocumented in this encounter Additional Health Concerns Assessment Noted Time PHQ-9 Depression Total Score: 0 07/03/19 24 10:45 AM EST documented as of this encounter Care Teams Aircraft Life Support Fitter Relationship Specialty Start Date End Date Otilia Quiñones MD [address] [place] [phone] PCP - General Family Medicine 09/15/13 documented as of this encounter
--- OUTSIDE RECORDS SUMMARY | 2025-03-27 12:51 | XMS_ITS | Encounter Summary ---
Author Organization [employer] Address [address] [place] [address] [address] [place] [address] Care Team Providers Care Brake Lining Maker Name Role Phone Otilia Quiñones MD Primary Care Provider [phone] Encounter Details Date Type Department Care Team ([facility] Contact Info) Description 02/17/2025 Results Follow-Up [facility] [address], [place] [phone] Otilia Quiñones MD [address] [place] [phone] CT Soft Tissue Neck w/ Contrast Social [...] documented as of this encounter Care Teams Brake Lining Maker Relationship Specialty Start Date End Date Otilia Quiñones MD [address] [place] [phone] PCP - General Family Medicine 09/15/13 documented as of this encounter
--- OUTSIDE RECORDS SUMMARY | 2025-03-27 12:51 | XMS_ITS | Encounter Summary ---
Author Organization [employer] Address [address] [place] [address] [address] [place] [address] Care Team Providers Care Interactive Media Marketing Director Name Role Phone Otilia Quiñones MD Primary Care Provider [phone] Encounter Details Date Type Department Care Team (Latest Contact Info) Description 08/25/2021 Abstract [facility] CONVERSIONS Dental, Provider, DDS Social History [...] on filedocumented in this encounter Care Teams Interactive Media Marketing Director Relationship Specialty Start Date End Date Otilia Quiñones MD [address] [facility] [place] [phone] PCP - General Family Medicine 09/15/13 documented as of this encounter
--- OUTSIDE RECORDS SUMMARY | 2025-03-27 12:51 | XMS_ITS | Clinical Summary ---
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 Will refill her weekly dose. Prolapsed hemorrhoids 03/04/2018 Encounters Date Type Department Care Team Description 03/27/2025 9:40 AM EDT Office Visit [facility] [address] [place] [phone] Constance Myers MD Graves disease (Primary Dx); Sore throat; Fever and chills; Exophthalmos of both eyes; Graves' disease with exophthalmos 03/27/2025 Travel 03/22/2025 Telephone [place] [employer] [address] [place] [address] Otilia Quiñones MD 03/22/2025 Orders Only GENERIC EXTERNAL DATA DEPARTMENT Provider, Generic External Data 03/15/2025 Results Follow-Up [facility] [address] [place] [address] Darling Toussaint RN Albumin, Random Urine W/Creatinine, Comprehensive Metabolic Panel, TSH W/Reflex to FT4, Additional followed-up results: 2 03/11/2025 Orders Only [facility] [address] [place] [address] Henrique Whittaker MD Hyperthyroidism (Primary Dx); Transaminitis 03/11/2025 Orders Only [facility] [address] [place] [address] Henrique Whittaker MD 03/09/2025 1:20 PM EDT Office Visit [facility] [address] [place] [address] Henrique Whittaker MD Edema, lower extremity (Primary Dx); Sore throat 03/09/2025 10:30 AM EDT Office Visit [facility] [address] [place] [address] Yoshi Sandoval DMD Dental caries (Primary Dx); Gingivitis 03/09/2025 Travel 03/08/2025 Results Follow-Up [facility] [address] [place] [address] Kubasek, Linda, RN CT Chest w/ Contrast 02/17/2025 Results Follow-Up [facility] [address] [place] [address] Otilia Quiñones MD CT Soft Tissue Neck w/ Contrast 02/17/2025 Orders Only [facility] External Provider, [facility] 02/12/2025 Results Follow-Up [facility] [address] [place] [address] Otilia Quiñones MD CBC auto differential, Sjogren's Antibodies (SS-A,SS-B), POCT Rapid Strep A OSOM, Additional followed-up results: 2 02/10/2025 11:30 AM EDT Office Visit [facility] [address] [place] [address] Otilia Quiñones MD Dermatitis (Primary Dx); Iron deficiency anemia, unspecified iron deficiency anemia type; Palpitations; Sore throat 02/10/2025 Travel 02/09/2025 Telephone [facility] [address] [place] [address] Otilia Quiñones MD Chart Prep 02/03/2025 9:30 AM EDT Office Visit [facility] [address] [place] [address] Yoshi Sandoval DMD Partial edentulism, unspecified edentulism class (Primary Dx) 02/02/2025 1:00 PM EDT Office Visit [facility] [address] [place] [address] Yoshi Sanodval DMD Dental caries (Primary Dx) 01/28/2025 Refill [facility] [address] [place] [address] Henrique Whittaker MD RBC microcytosis 01/12/2025 11:00 AM EDT Office Visit [facility] [address] [place] [address] Yoshi Sandoval DMD Dental caries (Primary Dx); [...] Mass Index 26.18 03/27/2025 9:36 AM EDT Plan of Treatment Health Maintenance Due [...] 9:55 AM EDT Fever and chills POCT COVID-19 AG FISCHER ID NOW Routine 03/27/2025 9:54 AM EDT Sore throat POCT INFLUENZA A (ID NOW RAPID MOLECULAR) Routine 03/27/2025 9:54 AM EDT Fever and chills POC FISCHER ID NOW STREP A Routine 03/27/2025 9:53 AM EDT Sore throat TRAB (TSH RECEPTOR BINDING ANTIBODY) Routine 03/22/2025 12:44 PM EDT THYROGLOBULIN PANEL Routine 03/22/2025 1 2:44 PM EDT T4, FREE Routine 03/22/2025 12:44 [...] Recently Relevant to Health Maintenance Results * POCT Rapid Influenza B FISCHER ID NOW (03/27/2025 9:55 AM EDT) Influenza B Negative Negative, Indeterminate [facility] QC Media Lot # [id number] [facility] Lot# Expiration Date [facility] Swab 03/27/2025 9:55 AM EDT Constance Chavez MD POINT OF CARE EARNESTINE T ENTER/EDIT ORDERABLES Final Result Performing Organization Address [facility]/ZIP Co de Phone Number [facility] [address] [place] [phone] * POCT Rapid Influenza A FISCHER ID NOW (03/27/2025 9:54 AM EDT) [facility] Influenza A Negative Negative, Indeterminate [facility] QC Media Lot # [id number] [facility] Lot# Expiration Date [facility] Swab 03/27/2025 9:54 AM EDT Constance Chavez MD POINT OF CARE EARNESTINE T ENTER/EDIT ORDERABLES Final Result Performing Organization Address [facility] Co de Phone Number [facility] [address] [place] [phone] * POCT Rapid Covid-19 FISCHER ID NOW (03/27/2025 9:54 AM EDT) [facility] Coronavirus Antigen PCR Negative Negative, Indeterminate, None Detected, Invalid, Specimen unsatisfactory for evaluation, Weakly Positive, 2+ QC Media Lot # [id number] Lot# Expiration Date Swab 03/27/2025 9:54 AM EDT Constance Chavez MD POINT OF CARE EARNESTINE T ENTER/EDIT ORDERABLES Final Result * POCT Rapid Strep A FISCHER ID NOW (03/27/2025 9:53 AM EDT) [facility] Rapid Strep A Screen Negative Negative, None Detected QC Media Lot # [id number] Lot# Expiration Date Swab 03/27/2025 9:53 AM EDT us Constance Chavez MD POINT OF CARE EARNESTINE T ENTER/EDIT ORDERABLES Final Result * High Sensitivity Troponin I (03/22/2025 12:44 PM EDT) [facility] TROPONIN I HIGH SENSITIVITY 6.5 <3.5 - 17.0 ng/L [facility] Comment:The Fischer high sens itivity Troponin-I results should beused in conjunction with other diagnostic information suchas ECG, clinical observations and information, and patientsymptoms to aid in the diagnosis of [place]. 03/22/2025 12:4 4 PM EDT 03/22/2025 12:46 PM EDT us Generic External Data Provider LAB BLOOD ORDERAB LES Final Result Performing Organization Address [facility]/ZIP Co de Phone Number [facility] [address] [place] [phone] * (ABNORMAL) TSH with Reflex to Free T4 (03/22/2025 12:44 PM EDT) Only the most recent of2 resultswithin the time period is included. [facility] TSH reflex Free T4 <0.01(L) 0.32 - 4.0 uIU/mL [facility] 03/22/2025 12:4 4 PM EDT 03/22/2025 12:46 PM EDT us Generic External Data Provider LAB BLOOD ORDERAB LES Final Result Performing Organization Address [facility] Co de Phone Number [facility] [address] [place] [phone] * (ABNORMAL) NT-proBNP (03/22/2025 12:44 PM EDT) [facility] NT-proBNP 589.2(H) <300 pg/mL [facility] Comment:Reference Range:Age Group (years) NT-proBNP (pg/ml) InterpretationAll <300 Negative: HF unlikelyFor patients presenting to the ED with clinical suspicion ofnew onset or worsening HF, see below:18 to <50 >299.9 to <450.0 Grayzone: [id number] to 75 >299.9 to <900.0 other causes of>75 >299.9 to <1800.0 NT-proBNP to <50 >449.9 Positive: HF [id number] >899.9>75 >1799.9Note: Elevated NT-proBNP levels should be interpreted inthe context of other clinical information. 03/22/2025 12:4 4 PM EDT 03/22/2025 12:46 PM EDT us Generic External Data Provider LAB BLOOD ORDERAB LES Final Result [facility] [address] [place] [address] [phone] * (ABNORMAL) CBC auto differential (03/22/2025 12:44 PM EDT) Only the most recent of3 resultswithin the time period is included. White Blood Count 4.0(L) 4.8 - 10.8 X10*3/uL [facility] Red Blood Count 4.86 4.20 - 5.50 X10*6/uL [facility] Hemoglobin 11.8(L) 12.0 - 16.0 g/dl [facility] Hematocrit 37.1 37.0 - 47.0 % [facility] Mean Corpuscular Volume 76.3(L) 80.0 - 98.0 fL [facility] Mean Corpuscular Hemoglobin 24.3(L) 27.0 - 33.0 pg [facility] Mean Corpuscular HGB Conc 31.8 31.0 - 35.0 g/dl [facility] Red Cell Distribution Width 12.4 11.0 - 16.0 % [facility] Platelet Count 202 160 - 400 X10*3/uL [facility] Mean Platelet Volume 11.8 9.4 - 12.3 fL [facility] Neutrophils Percent Auto 61.3 45 - 73 % [facility] Imm Gran Pct Auto 0.2 0.0 - 0.4 % [facility] Lymphocytes Percent Auto 27.0 20 - 40 % [facility] Monocytes Percent Auto 10.1 2 - 11 % [facility] Eosinophils Percent Auto 1.2 0 - 4 % [facility] Basophils Percent Auto 0.2 0 - 2 % [facility] NRBC Pct Auto 0.0 0.0 - 0.2 /100WBC [facility] Neutrophils Absolute Auto 2.5 2.0 - 8.3 x10*3/uL [facility] Imm Gran Abs Auto 0.01 0.00 - 0.03 X10*3/uL [facility] Lymphocytes Absolute Auto 1.1(L) 1.2 - 4.9 X10*3/uL [facility] Monocytes Absolute Auto 0.4 0.1 - 1.2 X10*3/uL [facility] Eosinophils Absolute Auto 0.1 0.0 - 0.4 X10*3/uL [facility] Basophils Absolute Auto 0.0 0.0 - 0.2 X10*3/uL [facility] NRBC Abs Auto 0.000 0.0 - 0.012 X10*3/uL [facility] 03/22/2025 12:4 4 PM EDT 03/22/2025 12:46 PM EDT us Generic External Data Provider LAB BLOOD ORDERAB LES Final Result [facility] [address] [place] [address] [phone] * hCG, Total, Quantitative (03/22/2025 12:44 PM EDT) HCG Quantitative <2 mIU/mL [facility] Comment:Weeks post LMP Appro ximate hCG(Last Menstrual Period) Range (mIU/ml)3 - 4 weeks 9 - 1304 - 5 weeks 75 - 2,6005 - 6 weeks 850 - 20,8006 - 7 weeks 4000 - 100,2007 - 12 weeks 11,500 - 289,70890 - 16 weeks 18,300 - 137,40990 - 29 weeks (2nd trimester) 1,400 - 53,44574 - 41 weeks (3rd trimester) 940 - 60,000The Fischer B- hCG assay is used for the [...] ORDERAB LES Final Result Performing Organization Address [facility] Co de Phone Number [facility] [address] [place] [phone] * (ABNORMAL) T4, Free (03/22/2025 12:44 PM EDT) Only the most recent of2 resultswithin the time period is included. Free T4 (Free Thyroxine) 2.85(H) 0.71 - 1.85 ng/dL [facility] 03/22/2025 12:4 4 PM EDT 03/22/2025 12:46 PM EDT Generic External Data Provider LAB BLOOD ORDERAB LES Final Result Performing Organization Address [facility] Co de Phone Number [facility] [address] [place] [phone] * (ABNORMAL) Comprehensive Metabolic Panel (03/22/2025 12:44 PM EDT) Only the most recent of2 resultswithin the time period is included. Sodium 141 135 - 145 mmol/L [facility] Potassium 3.7 3.3 - 5.1 mmol/L [facility] Chloride 106 96 - 108 mmol/L [facility] Carbon Dioxide 27 22 - 29 mmol/L [facility] Anion Gap 12 12 - 20 [facility] Urea Nitrogen (BUN) 12 9 - 16 mg/dL [facility] Creatinine, Serum 0.50 0.5 - 1.4 mg/dL [facility] Creatinine Clr Calc Pharmacy 129.5 [facility] Comment:Provided height and weight: 162.56 cm,67.1 kg.eGFR (calculated from the MDRD study equation) and eCrCl(calculated from the Cockcroft-Gault equation) are based ondifferent parameters and may not yield comparable results.If eCrCl result is absurd, please check patient'sheight/weight. Estimated Glomerular Filt Rate >60 [facility] Comment:Chronic Kidney Disea se: Estimated GFR < 60 mL/min/1.94g2Jftdjk Kidney Disease: Estimated GFR < 15 mL/min/1.73m2 Glucose 136(H) 60 - 115 mg/dL [facility] Calcium 9.6 8.4 - 10.2 mg/dL [facility] Bilirubin, Total 0.6 0.0 - 1.0 mg/dL [facility] Aspartate Amino Transferase 28 5 - 31 U/L [facility] Alanine Aminotransferase 31 0 - 31 U/L [facility] Total Protein 6.4(L) 6.5 - 8.0 g/dL [facility] Albumin Level 3.7 3.5 - 5.0 g/dL [facility] Alkaline Phosphatase 76 39 - 117 U/L [facility] 03/22/2025 12:4 4 PM EDT 03/22/2025 12:46 PM EDT us Generic External Data Provider LAB BLOOD ORDERAB LES Final Result [facility] [address] [place] [address] [phone] * Iron And Total Iron Binding Capacity (03/19/2025 1:48 PM EDT) Iron 35 30 - 160 mcg/dL [facility] Total Iron Binding Capacity 241 228 - 428 mcg/dL [facility] Percent Iron Saturation 15 15 - 50 % [facility] Unsaturated Iron Binding 206 ug/dL [facility] Blood Venous blood specimen / Unknown 03/19/2025 1:48 PM EDT 03/19/2025 2:38 PM EDT Henrique Whittaker MD LAB BLOOD ORDERABLES Final Result Performing Organization Address [facility] Co de Phone Number [facility] [address] [place] [phone] * Hepatitis B Surface Antibody, Qualitative (03/19/2025 1:48 PM EDT) ~Hepatitis B Surface Antibody NONREACTIVE Nonreactive [facility] Comment:Nonreactive: < 8.00 mIU/mL Blood Venous blood specimen / Unknown 03/19/2025 1:48 PM EDT 03/19/2025 2:38 PM EDT us Henrique Whittaker MD LAB BLOOD ORDERABLES Final Result Performing Organization Address [facility] Phone Number [facility] [address] [place] [phone] * (ABNORMAL) Prothrombin Time-INR (03/19/2025 1:48 PM EDT) Prothrombin Time 12.6(H) 10.9 - 12.4 SEC [facility] INTERNATIONAL NORM RATIO 1.1 0.9 - 1.1 [facility] Comment:INTERNATIONAL NORMAL IZED RATIO (INR) [...] BLOOD ORDERABLES Final Result Performing Organization Address [facility]/ZIP Co de Phone Number [facility] [address] [place] [address] [phone] * (ABNORMAL) Reticulocyte Count (03/19/2025 1:48 PM EDT) Reticulocytes Absolute 0.043 0.026 - 0.095 X10*6/uL [facility] Immature Retic Fraction 6.5 3.0 - 15.9 % [facility] Retic HGB Equivalent 26.2(L) 30.0 - 35.0 pg [facility] Reticulocyte Percent 1.0 0.5 - 1.8 % [facility] Blood Venous blood specimen / Unknown 03/19/2025 1:48 PM EDT 03/19/2025 2:38 PM EDT us Henrique Whittaker MD LAB BLOOD ORDERABLES Final Result Performing Organization Address [facility] Co de Phone Number [facility] [address] [place] [address] [phone] * Ferritin (03/19/2025 1:48 PM EDT) Ferritin 125 10 - 250 ng/mL [facility] Blood Venous blood specimen / Unknown 03/19/2025 1:48 PM EDT 03/19/2025 2:38 PM EDT Henrique Whittaker MD LAB BLOOD ORDERABLES Final Result Performing Organization Address [facility] Co de Phone Number [facility] [address] [place] [address] [phone] * Albumin, Random Urine W/Creatinine (03/11/2025 1:50 PM EDT) Creatinine, Urine 126.46 mg/dL [facility] Microalbumin Urine 6.0 mg/L [facility] Microalbum Creatinine Ratio Ur 4.7 <30 ug/mg cr [facility] Comment:Albumin/Creatinine R atio Reference Ranges: Normal: < 30 ug/mg creatinine Microalbuminuria: 30 - 300 ug/mg creatinineClinical Albuminuria: > 300 ug/mg creatinine Urine (Urine, Random) 03/11/2025 1:50 PM EDT 03/11/2025 5:48 PM EDT us Henrique Whittaker MD LAB URINE ORDERABLES Final Result [facility] [address] [place] [address] [phone] * T-SPOT??.TB (03/11/2025 1:46 PM EDT) T Spot TB Negative Negative [facility] Comment:A negative test resu lt [...] as aquantitative test. TS PANEL A 0 [facility] TS PANEL B 0 [facility] Negative Control Passed [facility] Positive Control Passed [facility] Comment:For additional infor baylee, please refer tohttp://education.questdiagnostics.com/faq/JER154(This link is being provided for informational/educational purposes only.)THIS TEST WAS PERFORMED AT:[facility] [place] [address]AVNKOPI W. MASON,MD,PHD 03/11/2025 1:46 PM EDT 03/11/2025 2:26 PM EDT us Henrique Whittaker MD LAB BLOOD ORDERABLES Final Result Performing Organization Address [facility] Co de Phone Number [facility] [address] [place] [phone] * Helicobacter pylori??Antigen, EIA, Stool (03/11/2025 9:30 AM EDT) H pylori Ag Stool [facility] Comment:HELICOBACTER PYLORI AG, EIA, STOOL Micro Number: [id number] Test Status: Final Specimen Source: Stool Specimen Quality: Adequate H.pylori Ag: Not Detected Antimicrobials, proton pump inhibitors, and bismuth preparations inhibit H. pylori and ingestion up to two weeks prior to testing may cause false negative results. If clinically indicated the test should be repeated on a new specimen obtained two weeks after discontinuing treatment. Reference Range: Not DetectedTHIS TEST WAS PERFORMED AT:[facility] [address] [address]CYRIL NASSAR MD Stool Rectal contents / Unknown 03/11/2025 9:30 AM EDT 03/11/2025 2:36 PM EDT us Otilia Quiñones MD LAB BODY FLUIDS AND STOOLS OR DERABLES Final Result Performing Organization Address [facility] Co de Phone Number [facility] [address] [place] [address] [phone] * POCT Rapid Strep A OSOM (03/09/2025 2:44 PM EDT) Only the most recent of2 resultswithin the time period is included. Pathologist [facility] Rapid Strep A Screen Negative Negative, None Detected QC Media Lot # [id number] Lot# Expiration Date Swab 03/09/2025 2:44 PM EDT Henrique Whittaker MD POINT OF CARE TEST ENTER/ED IT ORDERABLES Final Result * CT Chest w/ Contrast (03/05/2025 1:32 PM EDT) Anatomical Region Laterality Modality Body, Chest Computed Tomogra phy 03/05/2025 1:32 PM EDT Narrative 03/05/2025 2:05 PM EDT [place] [address] [address] Scan Report Signed Patient: Geovanna Hobbs MR#: [id number] 73 : 1975 Acct:[id number] Age/Sex: 49 / F ADM Date: 03/05/25 Loc: HO.CT Attending Dr: Otilia Quiñones MD Ordering Physician: Otilia Quiñones MD Date of Service: 03/05/25 Procedure(s): CT chest w IV con Accession Number(s): [id number] cc: Otilia Quiñones MD Report Number: [id number]: Total DLP = 90.00 mGy-cm Reason for [...] 03/05/25 1402 DD/ 1332 TD/TT: 03/05/25 1345 Tour Actor: Procedure Note Donotuseinterpreter, Image - 03/05/[address] [place] [address] [address] Scan Report Signed Patient: Geovanna HobbsMR#: [id number] 73 : 1975Acct:[id number] Age/Sex: 49 / FADM Date: 03/05/25 Loc: HO.CT Attending Dr: Otilia Quiñones MD Ordering Physician: Otilia Qiuñones MD Date of Service: 03/05/25 Procedure(s): CT chest w IV con Accession Number(s): [id number] cc: Otilia Quiñones MD Report Number: [id number]: Total DLP = 90.00 mGy-cm Reason for [...] 03/05/25 1402 DD/ 1332 TD/TT: 03/05/25 1345 Tour Actor: us Otilia Quiñones MD IMG CT PROCEDURES Final Resul t * CT Soft Tissue Neck w/ Contrast (02/17/2025 12:31 PM EDT) Anatomical Region Laterality Modality Head, Neck Computed Tomogra phy 02/17/2025 12:3 1 PM EDT Narrative 02/17/2025 1:12 PM EDT [address] [address] [address] Scan Report Signed Patient: Geovanna Hobbs MR#: [id number] 73 : 1975 Acct:[id number] Age/Sex: 49 / F ADM Date: 02/17/25 Loc: HO.ED Attending Dr: Ordering Physician: Tin Leger MD Date of Service: 02/17/25 Procedure(s): CT soft tissue neck w IV con Accession Number(s): [id number] cc: Otilia Quiñones MD; Tin Leger MD Report Number: [id number]: Total DLP = 406.00 mGy-cm Reason for [...] Retropharangeal Space: -Normal. Parapharyngeal Fat Planes: -Normal. Windows Server Architect Spaces: -Normal. Anterior Cervical Space: -Normal. Imaged [...] 02/17/25 1309 DD/ 1231 TD/TT: 02/17/25 1250 Tour Actor: Procedure Note Donotuseinterpreter, Image - 02/17/[address] [place] [address] [address] Scan Report Signed Patient: Geovanna HobbsMR#: [id number] 73 : 1975Acct:[id number] Age/Sex: 49 / FADM Date: 02/17/25 Loc: .ED Attending Dr: Ordering Physician: Tin Leger MD Date of Service: 02/17/25 Procedure(s): CT soft tissue neck w IV con Accession Number(s): [id number] cc: Otilia Quiñones MD; Tin Leger MD Report Number: [id number]: Total DLP = 406.00 mGy-cm Reason for [...] Retropharangeal Space: -Normal. Parapharyngeal Fat Planes: -Normal. Windows Server Architect Spaces: -Normal. Anterior Cervical Space: -Normal. Imaged [...] 02/17/25 1309 DD/ 1231 TD/TT: 02/17/25 1250 Tour Actor: [facility] External Provider IMG CT PROCEDURES Edited Result - Final * Sjogren's Antibodies (SS-A,SS-B) (02/10/2025 12:48 PM EDT) Sjogren's Antibody (SS-A) <1.0 NEG <1.0 NEG [facility] Sjogren's Antibody (SS-B) <1.0 NEG <1.0 NEG [facility] Comment:THIS TEST WAS PERFOR MED AT:[employer] [place] [phone] NASSAR MD 02/10/2025 12:4 8 PM EDT 02/10/2025 2:17 PM EDT Otilia Quiñones MD LAB BLOOD ORDERABLES Final Re sult Performing Organization Address [facility] Co de Phone Number [facility] [address] [place] [phone] * Culture, Throat (02/10/2025 11:55 AM EDT) Throat Structure of anterior region of neck / Unknown 02/10/2025 11:55 AM EDT 02/10/2025 2:18 PM EDT Comment:Throat Narrative [facility] - 02/12/2025 11:46 AM EDT Throat Culture No Group A Beta-hemolytic Streptococci isolated. Specimen Source: Throat Otilia Quiñones MD LAB MICROBIOLOGY - GENERAL OR DERABLES Final Result Performing Organization Address [facility] de Phone Number [facility] [address] [place] [phone] * Hepatitis C Antibody with Reflex to HCV, RNA, Quantitative, Real-Time PCR (10/15/2024 1:34 PM EDT) Hepatitis C Antibody Nonreactive Nonreactive [facility] Comment:Antibodies to HCV no t detected; does not exclude early acuteHCV infection. Blood Venous blood specimen / Unknown 10/15/2024 1:34 PM EDT 10/15/2024 2:19 PM EDT us Otilia Quiñones MD LAB BLOOD ORDERABLES Final Re sult Performing Organization Address [facility] Co de Phone Number [facility] [address] [place] [phone] HIV-1/2 Antigen and Antibodies, Fourth Generation, with Reflexes (10/15/2024 1:34 PM EDT) HIV AB/AG Nonreactive Nonreactive [facility] Comment:HIV-1 p24 Ag and/or HIV-1/HIV-2 Ab not detected.A test result that is nonreactive does not exclude thepossibility of exposure to or infection with HIV-1 and/orHIV-2. Nonreactive results in this assay for individualswith prior exposure to HIV-1 and/or HIV-2 may be due toantigen and antibody levels that are below the limit ofdetection of this assay.The Bringg HIV Ag/Ab Combo assay result andsupplemental assay results should be interpreted inconjunction with the patient's clinical presentation,history and other laboratory results. If the results areinconsistent with clinical evidence, additional testing issuggested to confirm the result. Blood Venous blood specimen / Unknown 10/15/2024 1:34 PM EDT 10/15/2024 2:19 PM EDT Otilia Quiñones MD LAB BLOOD ORDERABLES Final Re sult [facility] [address] [place] [phone] * BI Mammogram Diagnostic Tomosynthesis Bilateral (06/17/2024 11:18 AM EST) Anatomical Region Laterality Modality Breast Bilateral Mammography 06/17/2024 11:1 8 AM EST Narrative 06/17/2024 1:06 PM EST [facility] [address] [place] [address] Mammography Report Signed Patient: Geovanna Hobbs MR#: [id number] 74 : 1975 Acct:[id number] Age/Sex: 48 / F ADM Date: 06/17/24 Loc: [facility] Attending Dr: Yunier Bentley MD Ordering Physician: Yunier Bentley MD Results: 2Beni gn Findings Date of Service: 06/17/24 Follow Up: 1 Year From Orig inal Mammogram Procedure(s): MM tomosynthesis diagnostic BI Accession Number(s): [id number] cc: Otilia Quiñones MD; Yunier Bentley MD [...] by: Criselda Jimenez DO 06/17/2024 01:03 PM [facility] Dictated By: Criselda Jimenez DO Signed By: <Electronically signed by Criselda Jimenez DO in OV> 06/17/24 1303 DD/ 1118 TD/TT: 06/17/24 1146 Tour Actor: Procedure Note Donotuseinterpreter, Image - 06/17/2024 [facility] [address] [place] [address] Mammography Report Signed Patient: Geovanna HobbsMR#: [id number] 74 : 1975Acct:[id number] Age/Sex: 48 / FADM Date: 06/17/24 Loc: HO.MAMMO Attending Dr: Yunier Bentley MD Ordering Physician: Yunier Bentley MDResults: 2Beni gn Findings Date of Service: 06/17/24Follow Up: 1 Year From [facility] ina Mammogram Procedure(s): MM tomosynthesis diagnostic BI Accession Number(s): [id number] cc: Otilia Quiñones MD; Yunier Bentley MD [...] 06/17/24 1303 DD/ 1118 TD/TT: 06/17/24 1146 Tour Actor: [facility] External Provider IMG BI PROCEDURES Final Result [...] along with historic and current clinical information. Radiotelegraph Operator Servicer : SEE COMMENT [facility] Comment: BK,CT(ASCP) CT screening location: [address] Interpretation/R esult: Negative for intraepithelial lesion or malignancy. [facility] LMP: 06/03/2020 [facility] Prev. BX: NONE GIVEN [facility] Prev. PAP: NONE GIVEN [facility] Review Radiotelegraph Operator Servicer : SEE COMMENT [facility] Comment: SL, CT(ASCP) CT screening location: [address] [address] SOURCE: None given [facility] Statement Of Adequacy: SEE COMMENT [facility] Comment: Satisfactory for evaluation. Endocervical/transformation zone component absent. 08/02/2020 9:01 AM EST us Thania Alvarez [facility] PATHOLOGY ORDERABLES Final Result [facility] [address] * HPV mRNA E6/E7 (08/02/2020 9:01 AM EST) HPV nRNA E6/E7 Not Detected Not Detected [facility] Comment: Methodology: Service Observer-Mediated Amplification This assay detects E6/E7 viral messenger RNA (mRNA) from 14 high-risk HPV types (16,18,31,33,35,39,45,51,52,56,58,59,66,68). The analytical performance characteristics of this assay have been determined by [employer]. The modifications have not been cleared or approved by the FDA. This assay has been validated pursuant to the CLIA regulations and is used for clinical purposes. For additional information, please refer to http://education.[employer]faq/PZQ023y9 (This link if provided for information/ educational purposes only.) 08/02/2020 9:01 AM EST us Thania Kim [facility] LAB BLOOD ORDERABLES Kelly vicki Result [facility] [address] from Last 3 Months or Most Recently Relevant to Health Maintenance Insurance [facility] C3 DENTAL-[facility] MEDICAID STAND ADULT Care Teams Emissions Testing And Repair Technician Relationship Specialty Start Date End Date Otilia Quiñones MD [address] [place] [address] [place] [id number] PCP - General Family Medicine 09/15/13
--- OUTSIDE RECORDS SUMMARY | 2025-03-27 12:51 | XMS_ITS | Encounter Summary ---
Author Organization [employer] Address [address] [place] [address] [address] [place] [address] Care Team Providers Care Labor Relations Consultant Name Role Phone Otilia Quiñones MD Primary Care Provider [phone] Reason for Visit * Reason Comments Med Refill Encounter Details Date Type Department Care Team ([facility] st Contact Info) Description 11/22/2023 Refill [facility] [address], [place] [phone] Otilia Quiñones MD [address] [place], [place] [phone] Social History Tobacco Use Types Packs/Day Years [...] documented as of this encounter Care Teams Labor Relations Consultant Relationship Specialty Start Date End Date Otilia Quiñones MD [address] [place] [phone] PCP - General Family Medicine 09/15/13 documented as of this encounter
--- OUTSIDE RECORDS SUMMARY | 2025-03-27 12:51 | XMS_ITS | Encounter Summary ---
Author Organization [employer] Address [address] [facility] [address] [place] [address] Care Team Providers Care Professor Of English Name Role Phone Otilia Quiñones MD Primary Care Provider [phone] Encounter Details Date Type Department Care Team (Latest Contact Info) Description 03/27/2025 Travel Social History Tobacco Use Types Packs/Day [...] documented as of this encounter Care Teams Professor Of English Relationship Specialty Start Date End Date Otilia Quiñones MD [address] [place] [phone] PCP - General Family Medicine 09/15/13 documented as of this encounter
--- OUTSIDE RECORDS SUMMARY | 2025-03-27 12:51 | XMS_ITS | Encounter Summary ---
Author Organization [employer] Address [address] [place] [address] 7 [place] [address] Care Team Providers Care Through Freight Engineer Name Role Phone Otilia Quiñones MD Primary Care Provider Encounter Details Date Type Department Care Team (Latest Contact Info) Description 08/11/2020 Abstract [facility] CONVERSIONS Dental, Provider, DDS Social History [...] on filedocumented in this encounter Care Teams Through Freight Engineer Relationship Specialty Start Date End Date Otilia Quiñones MD [address] [facility] [place] [id number] PCP - General Family Medicine 09/15/13 documented as of this encounter
[2025-03-27 12:55] LABS: Hematocrit 35.4 % (37.0-47.0); Hemoglobin 11.1 g/dl (12.0-16.0); Imm Gran Abs Auto 0.01 X10*3/uL (0.00-0.03); Imm Gran Pct Auto 0.3 % (0.0-0.4); Lymphocytes Absolute Auto 1.2 X10*3/uL (1.2-4.9); Mean Corpuscular HGB Conc 31.4 g/dl (31.0-35.0); Mean Corpuscular Hemoglobin 24.1 pg (27.0-33.0); Mean Corpuscular Volume 76.8 fL (80.0-98.0); NRBC Abs Auto 0.000 X10*3/uL (0.0-0.012); NRBC Pct Auto 0.0 /100WBC (0.0-0.2); Platelet Count 176 X10*3/uL (160-400); Red Blood Count 4.61 X10*6/uL (4.20-5.50); White Blood Count 3.8 X10*3/uL (4.8-10.8)
[2025-03-27 12:57] LABS: INTERNATIONAL NORM RATIO 1.1 (0.9-1.1); Prothrombin Time 12.5 SEC (10.9-12.4)
[2025-03-27 13:03] LABS: IDNOW Serial# 55D5AD1C; Strep A Nucleic Acid Negative (Negative)
[2025-03-27 13:13] LABS: Alanine Aminotransferase 27 U/L (0-31); Albumin Level 3.8 g/dL (3.5-5.0); Alkaline Phosphatase 72 U/L (39-117); Anion Gap 12 (12-20); Aspartate Amino Transferase 33 U/L (5-31); Blood Urea Nitrogen 11 mg/dL (9-16); Calcium 9.7 mg/dL (8.4-10.2); Carbon Dioxide 28 mmol/L (22-29); Chloride 108 mmol/L (96-108); Creatinine Clr Calc Pharmacy 132.4; Estimated Glomerular Filt Rate > 60; Magnesium 1.6 mg/dL (1.6-2.6); Potassium 4.2 mmol/L (3.3-5.1); Sodium 144 mmol/L (135-145); Total Protein 6.6 g/dL (6.5-8.0); Troponin-I High Sensitivity 3.5 ng/L (<3.5-17.0)
[2025-03-27 13:16] LABS: COVID-19 Test Negative (Negative); IDNOW Serial# 58CA691E
[2025-03-27 13:17] LABS: IDNOW Serial# 08D9AD1C; Influenza B2 Negative (Negative)
[2025-03-27 13:43] LABS: NT Pro B Type Natriuretic Pept 804.7 pg/mL (<300)
[2025-03-27 14:58] VITALS: BP 118/66; PULSE 99; RESP 20; TEMP 36.8; O2SAT 100
[2025-03-27 15:30] LABS: Free T4 (Free Thyroxine) 3.16 ng/dL (0.71-1.85)
[2025-03-27 16:17] VITALS: BP 118/66; PULSE 99; RESP 20; TEMP 36.8; O2SAT 100
== END 2025-03-27 16:18 | disposition home or self-care (01) ==
PROVIDERS: Nurse Practitioner Family; Physician Assistant Medical; Emergency Provider Emergency Medicine Emergency Medical Services; PCP Pediatrics
DX: E05.90 Thyrotoxicosis, unspecified without thyrotoxic crisis or storm (principal); R07.9 Chest pain, unspecified; R49.0 Dysphonia; R06.00 Dyspnea, unspecified; Z03.818 Encounter for observation for suspected exposure to other biological agents ruled out
CPT/HCPCS: 36415; 71046; 80053; 83735; 83880; 84439; 84443; 84445; 84481; 84484; 84702; 85025; 85610; 87502; 87635; 87651; 93005; 99284

== ENCOUNTER → 2025-03-27 11:44 | Outpatient (BNV) | payer MEDICAID, SELFPAY | PROVIDERS: Emergency Provider Emergency Medicine Emergency Medical Services; PCP Pediatrics; Visit Provider Internal Medicine Cardiovascular Disease | DX: R07.9 Chest pain, unspecified (principal) | CPT/HCPCS: 93010 ==

== ENCOUNTER → 2025-03-27 12:48 | Outpatient (BNV) | payer MEDICAID, SELFPAY | PROVIDERS: Emergency Provider Emergency Medicine Emergency Medical Services; PCP Pediatrics; Visit Provider Radiology Diagnostic Radiology | DX: R06.02 Shortness of breath (principal) | CPT/HCPCS: 71046 ==

== ENCOUNTER 2025-04-08 13:17 | Outpatient (REF) | payer MEDICAID, SELFPAY ==
--- NOTE | ~2025-04-08 | XR_ITS ---
EXAMINATION: XR CHEST CLINICAL INFORMATION: R06.02 - Shortness of breath COMPARISON: Previous chest x-ray and chest CT March 2025 TECHNIQUE: Frontal view of the chest was obtained. FINDINGS: No significant abnormality is noted involving the heart, lungs, mediastinum, bony thorax or soft tissues. XR/XR chest 1V IMPRESSION: Unremarkable examination. Electronically signed by: Jessy Jean MD 04/08/2025 02:44 PM [facility]
[2025-04-08 15:05] LABS: Anion Gap 9 (12-20); Blood Urea Nitrogen 14 mg/dL (9-16); Calcium 9.6 mg/dL (8.4-10.2); Carbon Dioxide 28 mmol/L (22-29); Chloride 108 mmol/L (96-108); Estimated Glomerular Filt Rate > 60; Potassium 4.3 mmol/L (3.3-5.1); Sodium 141 mmol/L (135-145)
[2025-04-08 15:13] LABS: NT Pro B Type Natriuretic Pept 997.0 pg/mL (<300)
== END 2025-04-08 13:18 | disposition home or self-care (01) ==
LOC: HO.XRAY 13:17
PROVIDERS: PCP Pediatrics
DX: E05.00 Thyrotoxicosis with diffuse goiter without thyrotoxic crisis or storm (principal); R07.9 Chest pain, unspecified; R06.02 Shortness of breath; R00.2 Palpitations; R60.0 Localized edema
CPT/HCPCS: 36415; 71045; 80048; 83880; 93005; 99202; 99212

== ENCOUNTER 2025-04-08 13:17 | Outpatient (AMB) | payer MEDICAID, SELFPAY ==
[2025-04-08 13:21] VITALS: BP 102/50; PULSE 72; BMI 26.0
--- NOTE | 2025-04-08 13:21 | A.OFFVIS_ITS ---
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 Quiñones/Palpitations Intake Note: Pt State chest pain started 6month ago. Earth Moving Technician Required: No Allergies No Known Allergies (No Known Allergies*) Allergy (Verified 04/08/25 13:26) Medication List - Last Reconciled 04/08/25 by Reinaldo Bowie NP atenolol 25 mg PO DAILY clonidine HCl 0.2 mg PO BEDTIME HPI Comments Details: This is a new patient referred to us from emergency room for further evaluation of chest pain. Moving forward, patient will be under Dr. Mckenzie as he is the rounding lumber checker this week. Patient was recently in the hospital for shortness of breath and chest pain where ACS was ruled out. Her proBNP was elevated between 500-800. Patient states that recently she was diagnosed with Graves disease. Patient states that her thyroid has been off for over 2 years but was only recently diagnosed. Patient states that for the past 1 year she had noticed swelling in her legs but over the last 2 months, patient has noticed that the leg edema is worsening where patient is unable to wear her shoes. She also noticed that for the past 2 months she has been getting short of breath with exertion and chest pain associated with this. Patient states that her symptoms are getting worse over time. Patient is also reporting palpitations and was started on atenolol. Patient states that his symptoms have mildly improved however still has palpitations. Patient is denying any dizziness, orthopnea, PND, presyncope, or syncope. Patient is quite frustrated that she is usually very active and now is unable to do any of the house chores without getting any shortness of breath. Patient otherwise with no known coronary artery disease, ischemic disease, or cardiomyopathy. Patient does note that her younger sister was diagnosed with AFib. Patient is going to be seeing Endocrine after this office visit. [facility] Medical History Throat pain Prolapsed hemorrhoids Bleeding hemorrhoids Smoker Anxiety Surgical History History of tubal ligation H/O section Family History Maternal Grandmother Breast cancer Mother History of high blood pressure Social History Alcohol intake: never Patient Tobacco Use Status: Former Tobacco user Substance Use Type: Marijuana Female Reproductive History Menstrual Age of Menarche: 14 Review of Systems Const Denies chills, Denies daytime sleepiness, Denies fatigue, Denies fever(s), Denies poor appetite, Denies snoring, Denies stops breathing during sleep, Denies weight gain and Denies weight loss Eyes Denies loss of vision ENT Reports dizziness Card Reports chest pain, Reports pedal edema, Reports claudication, Denies leg edema, Reports lightheadedness, Reports palpitations, Reports dyspnea, Denies dyspnea on exertion and Denies orthopnea Resp Denies cough, Denies excessive phlegm production, Denies pain with cough, Reports dyspnea, Denies dyspnea on exertion, Denies snoring, Denies wheezing and Denies other GI Denies abdominal pain, Denies hematochezia, Denies change in bowel habits, Denies nausea and Denies vomiting Denies urinary frequency and Denies dysuria Musc Denies arthralgias and Denies muscle weakness Skin/Breast Denies nail changes and Denies rash Neuro Reports dizziness, Denies loss of vision and Denies memory loss Psych Denies depression, Reports difficulty concentrating, Denies auditory hallucinations and Denies memory loss Endo Denies fatigue and Reports palpitations Wong/Lymph Denies easy bruising Aller/Immun Denies wheezing Physical Exam Vital Signs: Last Vital Signs Pulse 72 04/08/25 13:21 BP 102/50 L 04/08/25 13:21 BMI result Body Mass Index 26.0 Const General: cooperative, healthy appearing, comfortable and no acute distress Orientation/consciousness: patient oriented x3 HEENT Head: Yes normal to inspection Neck Neck: Yes normal visual inspection, Yes trachea midline and Yes supple Thyroid: diffusely enlarged Chest Chest palpation & inspection: normal inspection of the chest Resp Effort & Inspection: normal respiratory effort Auscultation: clear to auscultation bilaterally, no crackles, no rales, no rhonchi and no wheezes Cardio Jugular venous distension: no JVD Palpation: normal PMI Rate: regular rate Rhythm: regular rhythm Heart sounds: S1 normal heart sound present, S2 normal heart sound present, no click, no gallops, no murmurs and no rubs Peripheral pulses: Peripheral pulses 2+ throughout GI Inspection: Yes normal to inspection Palpation (GI): Soft to palpation Auscultation: normal bowel sounds Skin General skin exam: no rashes or lesions noted Neuro General: patient oriented x3 Extrem Other: Bilateral lower legs with 2+ edema General: Yes normal to inspection and No calf tenderness Psych Appearance: grossly normal Mental Status: mental status grossly normal Speech and movement: Normal speech and movement present Office Procedures EKG Details: EKG today with normal sinus rhythm, rate 72 beats per minute, P-wave morphology suggesting biatrial enlargement, [place], [place] [id number], Complete Assessment & Plan Assessment & Plan (1) Chest pain: Code(s): R07.9 - Chest pain, unspecified Category: Medical (2) SOB (shortness of breath) on exertion: Code(s): R06.02 - Shortness of breath Category: Medical (3) Palpitations: Code(s): R00.2 - Palpitations Category: Medical (4) Leg edema: Code(s): R60.0 - Localized edema Category: Medical Plan Ongoing leg edema for over a year which is getting worse over the last 2 months. Patient states that she is wearing compression socks which helps some. On exam today, patient has bilateral 2+ edema. Patient also is noticeably getting short of breath with conversations. All her symptoms could be related to untreated hyperthyroidism and patient has plan for follow up today. We will also work patient up for cardiac etiology with a chest x-ray today and a pro BNP. Depending on the results, we will plan for low-dose diuretics. We will also get a Holter study to assess for any potential arrhythmias. Patient already has an echo planned for end of this month and we will try to get it sooner. We will also plan for a stress test to check for any ischemic disease. Further treatment plans based on findings. Advised on low-salt diet, daily weight monitoring, her compression socks and med compliance. Follow up in 1 month. In the interim, patient will call the office with any concerns or change in symptoms. This note was generated using voice recognition software. While every effort has been made to ensure accuracy and proper automotive power electronics engineer, there may be occasional errors that could affect the content or meaning of the described symptoms. Orders: Orders NT Pro B Type Natriuretic Pept Today R06.02 - Shortness of breath XR chest 1V Today R06.02 - Shortness of breath ECG holter monitor 48 hour 2 Weeks R00.2 - Palpitations CA stress test 2 Weeks R06.02 - Shortness of breath, R07.9 - Chest pain, unspecified NM cardiolite stress test 2 Weeks R07.9 - Chest pain, unspecified AMB EKG-In Office Today R00.2 - Palpitations Basic Metabolic Panel Today R06.02 - Shortness of breath Medications: New furosemide (Lasix) 20 mg PO DAILY 60 tabs 0RF Coding Level of Care Code New Pt Level 4 (22596) Complex EM visit Add On G2211 Diagnoses Chest pain R07.9 SOB (shortness of breath) on exertion R06.02 Palpitations R00.2 Leg edema R60.0 CPT Codes EKG - CPT: 13984-Njkvmdnirvvkqgsmx, Complete ([id number]) Time Spent (min) 34 Comment Time spent in reviewing the chart, test results, assessment, counseling and documentation.
--- OUTSIDE RECORDS SUMMARY | 2025-04-08 16:08 | XMS_ITS | Encounter Summary ---
Author Organization [employer] Address [address] [place] [address] [address] [place] [address] Care Team Providers Care Compounding Technician Name Role Phone Otilia Quiñones MD Primary Care Provider [phone] Encounter Details Date Type Department Care Team ([facility] st Contact Info) Description 11/02/2024 Orders Only [facility] MED & PEDS [address] [place], [place] [phone] Henrique Whittaker MD [address] [place] [address] RBC microcytosis (Primary Dx); Generalized abdominal pain [...] Upcoming Encounters Date Type Department Care Team ([facility] st Contact Info) Description 05/05/2025 11:00 AM EST Office Visit [facility] MED & PEDS [address] [place], [place] [phone] Otilia Quiñones MD [address] [place], [place] [phone] Scheduled Orders Name Type Priority Associated Diagnoses [...] EDT) Ferritin 18 10 - 250 ng/mL [facility] Blood Venous blood specimen / Unknown 11/03/2024 1:29 PM EDT 11/03/2024 2:45 PM EDT us Henrique Whittaker MD LAB BLOOD ORDERABLES Final Result [facility] [address] [place] [phone] * (ABNORMAL) Iron And Total Iron Binding Capacity (11/03/2024 1:29 PM EDT) Iron 17(L) 30 - 160 mcg/dL [facility] Total Iron Binding Capacity 268 228 - 428 mcg/dL [facility] Percent Iron Saturation 6(L) 15 - 50 % [facility] Unsaturated Iron Binding 251 ug/dL [facility] Blood Venous blood specimen / Unknown 11/03/2024 1:29 PM EDT 11/03/2024 2:45 PM EDT us Henrique Whittaker MD LAB BLOOD ORDERABLES Final Result Performing Organization Address [facility] Co de Phone Number [facility] [address] [place] [address] [phone] documented in this encounter Visit Diagnoses Diagnosis RBC microcytosis- Primary Generalized abdominal pain Abdominal pain, generalized documented in this encounter Additional Health Concerns Assessment Noted Time PHQ-9 Depression Total Score: 0 07/03/19 24 10:45 AM EST documented as of this encounter Care Teams Compounding Technician Relationship Specialty Start Date End Date Otilia Quiñones MD [address] [place] [address] PCP - General Family Medicine 09/15/13 documented as of this encounter
--- OUTSIDE RECORDS SUMMARY | 2025-04-08 16:08 | XMS_ITS | Encounter Summary ---
Author Organization [employer] Address [address] [place] [address] [place] [address] Care Team Providers Care Paint Crew Supervisor Name Role Phone Otilia Quiñones MD Primary Care Provider [phone] Reason for Referral * Imaging (Routine) - Authorized Specialty Diagnoses / Procedures Referred By Marilynn t Referred To Contact Radiology Diagnoses Transaminitis Procedures US Abdomen Comp w elastography Henrique Whittaker MD [address] [place] [address] Phone: tel: fax: [address] Phone: tel: fax: Referral ID Status Reason Start Date Expiration Date V isits Requested Visits Authorized [id number] Authorized 03/11/2025 03/11/2026 1 1 * Consultation (Routine) - Authorized Specialty Diagnoses / Procedures Referred By Marilynn t Referred To Contact Endocrinology Diagnoses Hyperthyroidism Henrique Whittaker MD [address] [place] [address] Phone: tel: fax: [facility] [address] [place], [place] Phone: tel: fax: Referral ID Status Reason Start Date Expiration Date Visits Requested Visits Authorized [id number] Authorized Specialty Services Required 03/11/2025 03/11/2026 1 1 * Imaging (Urgent) - Authorized Specialty Diagnoses / Procedures Referred By Contac t Referred To Contact Radiology Diagnoses Hyperthyroidism Procedures NM Thyroid Uptake Stimulation Suppression Henrique Whittaker MD [address] [place] [address] Phone: tel: fax: [address] Phone: tel: fax: Referral ID Status Reason Start Date Expiration Date V isits Requested Visits Authorized [id number] Authorized 03/11/2025 03/11/2026 2 2 Encounter Details Date Type Department Care Team (Late st Contact Info) Description 03/11/2025 Orders Only [facility] CH[facility] MED & PEDS [address] [place] [phone] Henrique Whittaker MD [address] [place] [address] Hyperthyroidism (Primary Dx); Transaminitis Social History Tobacco [...] Care Team (Late st Contact Info) Description 05/05/2025 11:00 AM EST Office Visit [facility] MED & PEDS [address] [place] [address] Otilia Quiñones MD [address] [place] [address] Scheduled Orders Name Type Priority Associated Diagnoses [...] Prothrombin Time 12.6(H) 10.9 - 12.4 SEC [facility] INTERNATIONAL NORM RATIO 1.1 0.9 - 1.1 [facility] Comment:INTERNATIONAL NORMAL IZED RATIO (INR) REFERENCE [...] Result Performing Organization Address [facility] Co de Phone Number [facility] [address] [place] [address] [phone] * Hepatitis B Surface Antibody, Qualitative (03/19/2025 1:48 PM EDT) Pathologist [facility] ~Hepatitis B Surface Antibody NONREACTIVE Nonreactive [facility] Comment:Nonreactive: < 8.00 mIU/mL Blood Venous blood specimen / Unknown 03/19/2025 1:48 PM EDT 03/19/2025 2:38 PM EDT us Henrique Whittaker MD LAB BLOOD ORDERABLES Final Result Performing Organization Address [facility] Number [facility] [address] [place] [phone] * (ABNORMAL) Reticulocyte Count (03/19/2025 1:48 PM EDT) [facility] Reticulocytes Absolute 0.043 0.026 - 0.095 X10*6/uL [facility] Immature Retic Fraction 6.5 3.0 - 15.9 % [facility] Retic HGB Equivalent 26.2(L) 30.0 - 35.0 pg [facility] Reticulocyte Percent 1.0 0.5 - 1.8 % [facility] Blood Venous blood specimen / Unknown 03/19/2025 1:48 PM EDT 03/19/2025 2:38 PM EDT us Henrique Whittaker MD LAB BLOOD ORDERABLES Final Result Performing Organization Address [facility] Co de Phone Number [facility] [address] [place] [address] [phone] * Ferritin (03/19/2025 1:48 PM EDT) Pathologist [facility] Ferritin 125 10 - 250 ng/mL [facility] Blood Venous blood specimen / Unknown 03/19/2025 1:48 PM EDT 03/19/2025 2:38 PM EDT us Henrique Whittaker MD LAB BLOOD ORDERABLES Final Result Performing Organization Address [facility] Co de Phone Number [facility] [address] [place] [phone] [phone] * Iron And Total Iron Binding Capacity (03/19/2025 1:48 PM EDT) Iron 35 30 - 160 mcg/dL [facility] Total Iron Binding Capacity 241 228 - 428 mcg/dL [facility] Percent Iron Saturation 15 15 - 50 % [facility] Unsaturated Iron Binding 206 ug/dL [facility] Blood Venous blood specimen / Unknown 03/19/2025 1:48 PM EDT 03/19/2025 2:38 PM EDT us Henrique Whittaker MD LAB BLOOD ORDERABLES Final Result Performing Organization Address [facility] Co de Phone Number [facility] [address] [place] [phone] documented in this encounter Visit Diagnoses [...] documented as of this encounter Care Teams Paint Crew Supervisor Relationship Specialty Start Date End Date Otilia Quiñones MD [address] [place] [phone] PCP - General Family Medicine 09/15/13 documented as of this encounter
--- OUTSIDE RECORDS SUMMARY | 2025-04-08 16:08 | XMS_ITS | Encounter Summary ---
Author Organization [employer] Address [address] [place] [address] 7 [place] [address] Care Team Providers Care Brancher Name Role Phone Otilia Quiñones MD Primary Care Provider Encounter Details Date Type Department Care Team (Latest Contact Info) Description 08/11/2020 Abstract [facility] CONVERSIONS Dental, Provider, DDS Social [...] Description 05/05/2025 11:00 AM EST Office Visit [facility] MED & PEDS [address] [place] [address] Otilia Quiñones MD [address] [place] [address] documented as of this encounter Visit Diagnoses Not on filedocumented in this encounter Care Teams Brancher Relationship Specialty Start Date End Date Otilia Quiñones MD [address] [place] [address] PCP - General Family Medicine 09/15/13 documented as of this encounter
--- OUTSIDE RECORDS SUMMARY | 2025-04-08 16:08 | XMS_ITS | Clinical Summary ---
Author Organization [employer] Address [address] [place] [address] Care Team Providers Care Pillow Filler Name Role Phone Otilia Quiñones MD Primary Care Provider [phone] Allergies No known active allergies Medications hydrOXYzine [...] per day. 30 tablet 3 12/11/19 25 026 Active Additional Information Patient not taking.Reported on 02/03/2025 cloNIDine (Catapres) 0.2 MG tablet Take 1 tab orally qhs 30 tablet 3 12/11/19 25 Active Ferrous Sulfate (iron) 325 (65 Fe) MG tabletIndications :RBC microcytosis TAKE ONE TABLET BY MOUTH EVERY DAY WITH BREAKFAST. DO NOT BREAK, CRUSH, DISSOLVE OR CHEW. 90 tablet 01/29/20 25 Active atenolol (Tenormin) 25 MG tablet Take 25 mg by mouth Once per day. Active acetaminophen-cod eine (Tylenol w/ Codeine #3) 300-30 MG tabletIndications :Hyperthyroidism, Sore throat Take 1 tablet by mouth every 6 (six) hours if needed for severe pain for up to 5 days. 20 tablet 03/30/20 025 Active Problems Problem Noted Date Diagnosed Date [...] with noted elevated ProBNP I called [facility] to inform that pt is going ,discuss w pt option to go to [facility] to make sure she can be seen by High Lift Operator but pt prefers to go to [facility]. -Pt had referred already by previous provider for [place] thyroid scan -has apt 04/2025 and referred for High Lift Operator -has apt 05/2025 --[facility] -Endy Kidd will help calling High Lift Operator office to request STAT evaluation on Saturday [...] Encounters Date Type Department Care Team Description 04/08/2025 Orders Only [facility] External Provider, [facility] 03/30/2025 11:00 AM EDT Office Visit [facility] [address], [place] [phone] Otilia Quiñones MD Hyperthyroidism (Primary Dx); Sore throat; Graves' disease with exophthalmos 03/30/2025 Travel 03/29/2025 Telephone [facility] [address], [place] [phone] Otilia Quiñones MD 03/28/2025 Telephone [facility] [address] [place] [phone] Kristi Calderon NP 03/27/2025 9:40 AM EDT Office Visit [facility] [address] [place] [phone] Constance Myers MD Graves disease (Primary Dx); Sore throat; Fever and chills; Exophthalmos of both eyes; Graves' disease with exophthalmos 03/27/2025 Orders Only GENERIC EXTERNAL DATA DEPARTMENT Provider, Generic External Data 03/27/2025 Travel 03/22/2025 Telephone [facility] [address] [place] [address] Otilia Quiñones MD 03/22/2025 Orders Only GENERIC EXTERNAL DATA DEPARTMENT Provider, Generic External Data 03/15/2025 Results Follow-Up [facility] [address], [place] [phone] Darling Toussaint RN Albumin, Random Urine W/Creatinine, Comprehensive Metabolic Panel, TSH W/Reflex to FT4, Additional followed-up results: 2 03/11/2025 Orders Only [facility] [address] [place] [address] Henrique Whittaker MD Hyperthyroidism (Primary Dx); Transaminitis 03/11/2025 Orders Only [facility] [address] [place] [address] Henrique Whittaker MD 03/09/2025 1:20 PM EDT Office Visit [facility] [address] [place] [address] Henrique Whittaker MD Edema, lower extremity (Primary Dx); Sore throat 03/09/2025 10:30 AM EDT Office Visit [facility] [address] [place] [address] Yoshi Sandoval DMD Dental caries (Primary Dx); Gingivitis 03/09/2025 Travel 03/08/2025 Results Follow-Up [facility] [address] [place] [address] Chest w/ Contrast 02/17/2025 Results Follow-Up [facility] [address] [place] [phone] Otilia Quiñones MD CT Soft Tissue Neck w/ Contrast 02/17/2025 Orders Only [facility] External Provider, [facility] 02/12/2025 Results Follow-Up [facility] [address] [place] [address] Otilia Quiñones MD CBC auto differential, Sjogren's Antibodies (SS-A,SS-B), POCT Rapid Strep A OSOM, Additional followed-up results: 2 02/10/2025 11:30 AM EDT Office Visit [facility] [address] [place] [address] Otilia Quiñones MD Dermatitis (Primary Dx); Iron deficiency anemia, unspecified iron deficiency anemia type; Palpitations; Sore throat 02/10/2025 Travel 02/09/2025 Telephone [facility] [address] [place] [address] Otilia Quiñones MD Chart Prep 02/03/2025 9:30 AM EDT Office Visit [facility] [address] [place] [address] Yoshi Sandoval, JUDI Partial edentulism, unspecified edentulism class (Primary Dx) 02/02/2025 1:00 PM EDT Office Visit [facility] [address] [place] [address] Yoshi Sandoval DMD Dental caries (Primary Dx) 01/28/2025 Refill [facility] [address] [place] [address] Henrique Whittaker MD RBC microcytosis 01/12/2025 11:00 AM EDT Office Visit [facility] [address] [place] [address] Yoshi Sandoval DMD Dental caries (Primary Dx); [...] Sign Reading Time Taken Comments Blood Pressure 100/60 03/30/2025 11:20 AM EDT Pulse 72 03/30/2025 11:20 AM EDT Temperature 36.9 C (98.5 F) 03/30/2025 11:20 AM EDT Respiratory Rate 16 03/30/2025 11:20 AM EDT Oxygen Saturation 99% 03/27/2025 9:36 AM EDT Inhaled Oxygen Concentration - - Weight 68.9 kg (152 lb) 03/30/2025 11:20 AM EDT Height 162.6 cm (5' 4 ) 03/27/2025 9:36 AM EDT Body Mass Index 26.09 03/27/2025 9:36 AM EDT Plan of Treatment Upcoming Encounters Date Type Department Care Team (Late st Contact Info) Description 05/05/2025 11:00 AM EST Office Visit [facility] [address] [place] [address] Otilia Quiñones MD [address] [place] [address] Health Maintenance Due Date Last Done Comments [...] 24 Disability Screening 02/10/2026 02/10/2025 Tobacco Screening 03/30/2026 03/30/2025 Zoster Vaccines (1 of 2) 2026 DTaP/Tdap/Td [...] Procedure Name Priority Date/Time Associated Diagnosis Comments XR CHEST 1 VIEW Routine 04/08/2025 2:38 PM EST NT-PROBNP Routine 04/08/2025 2:22 PM EST BASIC METABOLIC PANEL Routine 04/08/2025 2:22 PM EST XR CHEST 2 VIEWS Routine 03/27/2025 2:14 PM EDT NT-PROBNP Routine 03/27/2025 12:43 PM EDT POCT INFLUENZA B (ID NOW RAPID MOLECULAR) Routine 03/27/2025 9:55 AM EDT Fever and chills POCT COVID-19 AG FISCHER ID NOW Routine 03/27/2025 9:54 AM EDT Sore throat POCT INFLUENZA A (ID NOW RAPID MOLECULAR) Routine 03/27/2025 9:54 AM EDT Fever and chills POC FISCHER ID NOW STREP A Routine 03/27/2025 9:53 AM EDT Sore throat TSI (THYROID STIMULATING IMMUNOGLOBULIN) Routine 03/22/2025 12:44 PM EDT TRAB (TSH [...] Recently Relevant to Health Maintenance Results * XR Chest 1 View (04/08/2025 2:38 PM EST) Anatomical Region Laterality Modality Chest Radiographic Renée ging 04/08/2025 2:38 PM EST Narrative 04/08/2025 2:47 PM EST [address] [address] XRay Report Signed Patient: Geovanna Hobbs MR#: [id number] [birth year] : 1975 Acct:[id number] Age/Sex: 49 / F ADM Date: 04/08/25 Loc: [facility] Attending Dr: Reinaldo Bowie NP Ordering Physician: Reinaldo Bowie NP Date of Service: 04/08/25 Procedure(s): XR chest 1V Accession Number(s): [id number] cc: Otilia Quiñones MD; Reinaldo Bowie NP Reason for Exam: R06.02 - Shortness of breath EXAMINATION: XR CHEST CLINICAL INFORMATION: R06.02 - Shortness of breath COMPARISON: Previous chest x-ray and chest CT March 2025 TECHNIQUE: Frontal view of the chest was obtained. FINDINGS: No significant abnormality is noted involving the heart, lungs, mediastinum, bony thorax or soft tissues. XR/XR chest 1V IMPRESSION: Unremarkable examination. Electronically signed by: Jessy Jean MD 04/08/2025 02:44 PM EST RP Dictated By: Jessy Jean MD Signed By: <Electronically signed by Jessy Jean MD in OV> 04/08/25 1444 DD/ 1438 TD/TT: 04/08/25 1438 [employer] Operator: SAM Procedure Note Donotuseinterpreter, Image - 04/08/[address] [address] XRay Report Signed Patient: Geovanna HobbsMR#: [id number] 74 : 1975Acct:[id number] Age/Sex: 49 / FADM Date: 04/08/25 Loc: [facility] Attending Dr: Reinaldo Bowie [employer] OR[employer]IST Ordering Physician: Reinaldo Bowie NP Date of Service: 04/08/25 Procedure(s): XR chest 1V Accession Number(s): [id number] cc: Otilia Quiñones MD; Reinaldo Bowie NP Reason for Exam: R06.02 - Shortness of breath EXAMINATION: XR CHEST CLINICAL INFORMATION: R06.02 - Shortness of breath COMPARISON: Previous chest x-ray and chest CT March 2025 TECHNIQUE: Frontal view of the chest was obtained. FINDINGS: No significant abnormality is noted involving the heart, lungs, mediastinum, bony thorax or soft tissues. XR/XR chest 1V IMPRESSION: Unremarkable examination. Electronically signed by: Jessy Jean MD 04/08/2025 02:44 PM EST Dictated By: Jessy Jaen MD Signed By: <Electronically signed by Jessy Jean MD in OV> 04/08/25 1444 DD/ 1438 TD/TT: 04/08/258 [employer] Operator: SAM Authorjoanie Provider Result Type Result Stat [facility] External Provider IMG XR PROCEDURES Final Result * (ABNORMAL) NT-proBNP (04/08/2025 2:22 PM EST) Only the most recent of3 resultswithin the time period is included. NT-proBNP 997.0(H) <300 pg/mL [facility] Comment:Reference Range:Age Group (years) NT-proBNP (pg/ml) InterpretationAll <300 Negative: HF unlikelyFor patients presenting to the ED with clinical suspicion ofnew onset or worsening HF, see below:18 to <50 >299.9 to <450.0 Grayzone: Ohzdnarl19 to 75 >299.9 to <900.0 other causes of>75 >299.9 to <1800.0 NT-proBNP [id number] to <50 >449.9 Positive: HF -14 >899.9>75 >1799.9Note: Elevated NT-proBNP levels should be interpreted inthe context of other clinical information. 04/08/2025 2:22 PM EST 04/08/2025 2:22 PM EST us Generic External Data Provider LAB BLOOD ORDERAB LES Final Result Performing Organization Address [facility] de Phone Number [facility] [address] [place] [phone] * (ABNORMAL) Basic Metabolic Panel (04/08/2025 2:22 PM EST) Sodium 141 135 - 145 mmol/L [facility] Potassium 4.3 3.3 - 5.1 mmol/L [facility] Chloride 108 96 - 108 mmol/L [facility] Carbon Dioxide 28 22 - 29 mmol/L [facility] Anion Gap 9(L) 12 - 20 [facility] Urea Nitrogen (BUN) 14 9 - 16 mg/dL [facility] Creatinine, Serum 0.58 0.5 - 1.4 mg/dL [facility] Estimated Glomerular Filt Rate >60 [facility] Comment:Chronic Kidney Disea se: Estimated GFR < 60 mL/min/1.41k0Mljkar Kidney Disease: Estimated GFR < 15 mL/min/1.73m2 Glucose 122(H) 60 - 115 mg/dL [facility] Calcium 9.6 8.4 - 10.2 mg/dL [facility] 04/08/2025 2:22 PM EST 04/08/2025 2:22 PM EST us Generic External Data Provider LAB BLOOD ORDERAB LES Final Result Performing Organization Address [facility] Co de Phone Number [facility] [address] [place] [phone] * XR Chest 2 Views (03/27/2025 2:14 PM EDT) Anatomical Region Laterality Modality Chest Radiographic Renée ging 03/27/2025 2:14 PM EDT Narrative 03/27/2025 2:15 PM EDT [address] [address] XRay Report Signed Patient: Geovanna Hobbs MR#: [id number] [birth year] : 1975 Acct:[id number] Age/Sex: 49 / F ADM Date: 03/27/25 Loc: HO.ED Attending Dr: Ordering Physician: Augusta Hill NP Date of Service: 03/27/25 Procedure(s): XR chest 2V Accession Number(s): [id number] cc: Otilia Quiñones MD; Augusta Hill NP Reason for Exam: diff breathing CLINICAL HISTORY: diff breathing 2 view chest x-ray. Comparison: 02/17/2025 Findings: No consolidation or effusion. Cardiac and mediastinal contours are stable. Bones unremarkable. Impression: 1. No acute pulmonary disease. This document has been electronically signed by: Jeff Hilario MD on 03/27/2025 14:14:28 Dictated By: Jeff Hilario MD Signed By: <Electronically signed by Jeff Hilario MD in OV> 03/27/25 1415 DD/ 1414 TD/TT: 03/27/25 1414 [employer] Press Operator: Procedure Note Donotuseinterpreter, Image - 03/27/2025 [place] [address] XRay Report Signed Patient: Geovanna HobbsMR#: [id number] 74 : 1975Acct:[id number] Age/Sex: 49 / FADM Date: 03/27/25 Loc: .ED Attending Dr: Ordering Physician: Augusta Hill NP Date of Service: 03/27/25 Procedure(s): XR chest 2V Accession Number(s): [id number] cc: Otilia Quiñones MD; Augusta Hill NP Reason for Exam: diff breathing CLINICAL HISTORY: diff breathing 2 view chest x-ray. Comparison: 02/17/2025 Findings: No consolidation or effusion. Cardiac and mediastinal contours are stable. Bones unremarkable. Impression: 1. No acute pulmonary disease. This document has been electronically signed by: Jeff Hilario MD on 03/27/2025 14:14:28 Dictated By: Jeff Hilario MD Signed By: <Electronically signed by Jeff Hilario MD in OV> 03/27/25 1415 DD/ 141 TD/TT: 03/27/25 141 [employer] Operator: [facility] External Provider IMG XR PROCEDURES Edited Result - Final * POCT Rapid Influenza B FISCHER ID NOW (03/27/2025 9:55 AM EDT) Influenza B Negative Negative, Indeterminate [facility] QC Media Lot # [id number] [facility] Lot# Expiration Date [facility] Swab 03/27/2025 9:55 AM EDT Result [facility] Constance Chavez MD POINT OF CARE EARNESTINE T ENTER/EDIT ORDERABLES Final Result Performing Organization Address [facility]/ZIP Co de Phone Number [facility] [address] [place] [phone] * POCT Rapid Influenza A FISCHER ID NOW (03/27/2025 9:54 AM EDT) Influenza A Negative Negative, Indeterminate [facility] QC Media Lot # [id number] [facility] Lot# Expiration Date [facility] Swab 03/27/2025 9:54 AM EDT Constance Chavez MD POINT OF CARE EARNESTINE T ENTER/EDIT ORDERABLES Final Result Performing Organization Address [facility]/ZIP Co de Phone Number [facility] [address] [place] [phone] * POCT Rapid Covid-19 FISCHER ID NOW (03/27/2025 9:54 AM EDT) Pathologist [facility] Coronavirus Antigen PCR Negative Negative, Indeterminate, None Detected, Invalid, Specimen unsatisfactory for evaluation, Weakly Positive, 2+ QC Media Lot # [id number] Lot# Expiration Date [id number] Swab 03/27/2025 9:54 AM EDT Constance Chavez MD POINT OF CARE EARNESTINE T ENTER/EDIT ORDERABLES Final Result * POCT Rapid Strep A FISCHER ID NOW (03/27/2025 9:53 AM EDT) [facility] Rapid Strep A Screen Negative Negative, None Detected QC Media Lot # [id number] Lot# Expiration Date Swab 03/27/2025 9:53 AM EDT Constance Chavez MD POINT OF CARE EARNESTINE T ENTER/EDIT ORDERABLES Final Result * High Sensitivity Troponin I (03/22/2025 12:44 PM EDT) [facility] TROPONIN I HIGH SENSITIVITY 6.5 <3.5 - 17.0 ng/L [facility] Comment:The Fischer high sens itivity Troponin-I results should beused in conjunction with other diagnostic information suchas ECG, clinical observations and information, and patientsymptoms to aid in the diagnosis of MT. 03/22/2025 12:4 4 PM EDT 03/22/2025 12:46 PM EDT Generic External Data Provider LAB BLOOD ORDERAB LES Final Result [facility] [address] [place] [phone] * (ABNORMAL) TSH with Reflex to Free T4 (03/22/2025 12:44 PM EDT) Only the most recent of2 resultswithin the time period is included. [facility] TSH reflex Free T4 <0.01(L) 0.32 - 4.0 uIU/mL [facility] 03/22/2025 12:4 4 PM EDT 03/22/2025 12:46 PM EDT us Generic External Data Provider LAB BLOOD ORDERAB LES Final Result [facility] [address] [place], [place] [phone] * (ABNORMAL) CBC auto differential (03/22/2025 12:44 PM EDT) Only the most recent of3 resultswithin the time period is included. White Blood Count 4.0(L) 4.8 - 10.8 X10*3/uL [facility] Red Blood Count 4.86 4.20 - 5.50 X10*6/uL [facility] Hemoglobin 11.8(L) 12.0 - 16.0 g/dl [facility] Hematocrit 37.1 37.0 - 47.0 % [facility] Mean Corpuscular Volume 76.3(L) 80.0 - 98.0 fL [facility] Mean Corpuscular Hemoglobin 24.3(L) 27.0 - 33.0 pg [facility] Mean Corpuscular HGB Conc 31.8 31.0 - 35.0 g/dl [facility] Red Cell Distribution Width 12.4 11.0 - 16.0 % [facility] Platelet Count 202 160 - 400 X10*3/uL [facility] Mean Platelet Volume 11.8 9.4 - 12.3 fL [facility] Neutrophils Percent Auto 61.3 45 - 73 % [facility] Imm Gran Pct Auto 0.2 0.0 - 0.4 % [facility] Lymphocytes Percent Auto 27.0 20 - 40 % [facility] Monocytes Percent Auto 10.1 2 - 11 % [facility] Eosinophils Percent Auto 1.2 0 - 4 % [facility] Basophils Percent Auto 0.2 0 - 2 % [facility] NRBC Pct Auto 0.0 0.0 - 0.2 /100WBC [facility] Neutrophils Absolute Auto 2.5 2.0 - 8.3 x10*3/uL [facility] Imm Gran Abs Auto 0.01 0.00 - 0.03 X10*3/uL [facility] Lymphocytes Absolute Auto 1.1(L) 1.2 - 4.9 X10*3/uL [facility] Monocytes Absolute Auto 0.4 0.1 - 1.2 X10*3/uL [facility] Eosinophils Absolute Auto 0.1 0.0 - 0.4 X10*3/uL [facility] Basophils Absolute Auto 0.0 0.0 - 0.2 X10*3/uL [facility] NRBC Abs Auto 0.000 0.0 - 0.012 X10*3/uL [facility] 03/22/2025 12:4 4 PM EDT 03/22/2025 12:46 PM EDT us Generic External Data Provider LAB BLOOD ORDERAB LES Final Result [facility] [address] [place] [phone] * (ABNORMAL) TSI (Thyroid Stimulating Immunoglobulin) (03/22/2025 12:44 PM EDT) Thyroid Stimulating Immunoglobulin 237(A) <140 % baseline [facility] Comment: Thyroid stimulating immunoglobulins (TSI) can engagethe TSH receptors resulting in hyperthyroidism inGraves' disease patients. TSI levels can be useful inmonitoring the clinical outcome of Graves' disease aswell as assessing the potential for hyperthyroidismfrom maternal- transfer. TSI results greater thanor equal to (>=) 140% of the Reference Control areconsidered positive.NOTE:A serum TSH level greater than 350 micro-InternationalUnits/mL can interfere with the TSI bioassay andpotentially give false positive results.Patients who are and are suspected of havinghyperthyroidism should have both TSI and humanChorionic Gonadotropin(hCG) tests measured. A serumhCG level greater than 40,625 mIU/mL can interferewith the TSI bioassay and may give false negativeresults. In these patients it is recommended thata second TSI be obtained when the hCG concentrationfalls below 40,625 mIU/mL (usually after ufpveqxwzimnw23-uqsjq gestation).The analytical performance characteristics of thisassay have been determined by [place]. The modificationshave not been cleared or approved by the FDA. Thisassay has been validated pursuant to the CLIAregulations and is used for clinical purposes.THIS TEST WAS PERFORMED AT:[employer]/LAY [id number] [place] [id number] BONNER MD,PHD 03/22/2025 12:4 4 PM EDT 03/22/2025 12:46 PM EDT Generic External Data Provider LAB BLOOD ORDERAB LES Final Result Performing Organization Address [facility] de [facility] Number [facility] [address] [place] [phone] * (ABNORMAL) TRAb (TSH Receptor Binding Antibody) (03/22/2025 12:44 PM EDT) Pathologist [facility] TRAb (TSH Receptor Binding Antibody) 21.44(A) <=2.00 IU/L [facility] Comment:This test was perfor med using the TRAb Antibody ELISAmethod which is standardized against the [facility] care servicesInternational Standard 90/672 and is reported inInternational Units (IU/L). The reference rangereported was established specifically for this testmethod.THIS TEST WAS PERFORMED AT:[employer]/OUYA [id number] [place] [phone] BONNER MD,PHD 03/22/2025 12:4 4 PM EDT 03/22/2025 12:46 PM EDT Generic External Data Provider LAB BLOOD ORDERAB LES Final Result Performing Organization Address [facility] de [facility] Number [facility] [address] [place] [phone] * (ABNORMAL) Thyroglobulin Panel (03/22/2025 12:44 PM EDT) Pathologist [facility] Thyroglobulin, LC/MS/MS 14.6 ng/mL [facility] Comment: Reference Range: Intact Thyroid 2.8-40.9 Athyrotic <0.1 Note: Abnormal flagging is based on the reference interval for patients with intact thyroid.This test was performed using the Larry Coulterchemiluminescent method. Values obtained fromdifferent assay methods cannot be usedinterchangeably. Thyroglobulin levels, regardlessof value, should not be interpreted as absoluteevidence of the presence or absence of disease.This specimen was found to contain anti-thyroglobulinantibodies. The presence of these autoantibodies maycause falsely low thyroglobulin values. In Tg-antibodypositive patients the thyroglobulin by tandem massspectrometry (test code 71849 - Thyroglobulin,LC/MS/MS; or panel test code 77080 - Thyroid Cancer(Thyroglobulin) Monitoring) test is recommendedbecause it has no interference from autoantibodies.For additional information, please refer tohttp://education.Hunie/faq/RJR098(This link is being provided for informational/educational purposes only.)THIS TEST WAS PERFORMED AT:[employer] [place] [phone] NASSAR MD Thyroglobulin Antibodies 2(A) < or = 1 IU/mL [facility] 03/22/2025 12:4 4 PM EDT 03/22/2025 12:46 PM EDT us Generic External Data Provider LAB BLOOD ORDERAB LES Final Result [facility] [address] [place] [phone] * hCG, Total, Quantitative (03/22/2025 12:44 PM EDT) [facility] HCG Quantitative <2 mIU/mL [facility] Comment:Weeks post LMP Appr oximate hCG(Last Menstrual Period) Range (mIU/ml)3 - 4 weeks 9 - 1304 - 5 weeks 75 - 2,6005 - 6 weeks 850 - 20,8006 - 7 weeks 4000 - 100,2007 - 12 weeks 11,500 - 289,75662 - 16 weeks 18,300 - 137,18411 - 29 weeks (2nd trimester) 1,400 - 53,03983 - 41 weeks (3rd trimester) 940 - 60,000The Fischer B-hCG assay is used for the early detection ofpregnancy; it cannot be used to diagnose any conditionunrelated to . If a B-hCG level is not supportedby the clinical evidence, results should be confirmed by analternative method (qualitative urine hCG, for example). 03/22/2025 12:4 4 PM EDT 03/22/2025 12:46 PM EDT Generic External Data Provider LAB BLOOD ORDERAB LES Final Result Performing Organization Address [facility] Co de Phone Number [facility] [address] [place] [phone] * (ABNORMAL) T4, Free (03/22/2025 12:44 PM EDT) Only the most recent of2 resultswithin the time period is included. Free T4 (Free Thyroxine) 2.85(H) 0.71 - 1.85 ng/dL [facility] 03/22/2025 12:4 4 PM EDT 03/22/2025 12:46 PM EDT Generic External Data Provider LAB BLOOD ORDERAB LES Final Result Performing Organization Address [facility] Co de Phone Number [facility] [address] [place] [phone] * (ABNORMAL) Comprehensive Metabolic Panel (03/22/2025 12:44 PM EDT) Only the most recent of2 resultswithin the time period is included. Sodium 141 135 - 145 mmol/L [facility] Potassium 3.7 3.3 - 5.1 mmol/L [facility] Chloride 106 96 - 108 mmol/L [facility] Carbon Dioxide 27 22 - 29 mmol/L [facility] Anion Gap 12 12 - 20 [facility] Urea Nitrogen (BUN) 12 9 - 16 mg/dL [facility] Creatinine, Serum 0.50 0.5 - 1.4 mg/dL [facility] Creatinine Clr Calc Pharmacy 129.5 [facility] Comment:Provided height and weight: 162.56 cm,67.1 kg.eGFR (calculated from the MDRD study equation) and eCrCl(calculated from the Cockcroft-Gault equation) are based ondifferent parameters and may not yield comparable results.If eCrCl result is absurd, please check patient'sheight/weight. Estimated Glomerular Filt Rate >60 [facility] Comment:Chronic Kidney Disea se: Estimated GFR < 60 mL/min/1.14f9Hkgyja Kidney Disease: Estimated GFR < 15 mL/min/1.73m2 Glucose 136(H) 60 - 115 mg/dL [facility] Calcium 9.6 8.4 - 10.2 mg/dL [facility] Bilirubin, Total 0.6 0.0 - 1.0 mg/dL [facility] Aspartate Amino Transferase 28 5 - 31 U/L [facility] Alanine Aminotransferase 31 0 - 31 U/L [facility] Total Protein 6.4(L) 6.5 - 8.0 g/dL [facility] Albumin Level 3.7 3.5 - 5.0 g/dL [facility] Alkaline Phosphatase 76 39 - 117 U/L [facility] 03/22/2025 12:4 4 PM EDT 03/22/2025 12:46 PM EDT us Generic External Data Provider LAB BLOOD ORDERAB LES Final Result [facility] [address] [place], [place] [phone] * Iron And Total Iron Binding Capacity (03/19/2025 1:48 PM EDT) Iron 35 30 - 160 mcg/dL [facility] Total Iron Binding Capacity 241 228 - 428 mcg/dL [facility] Percent Iron Saturation 15 15 - 50 % [facility] Unsaturated Iron Binding 206 ug/dL [facility] Blood Venous blood specimen / Unknown 03/19/2025 1:48 PM EDT 03/19/2025 2:38 PM EDT Henrique Whittaker MD LAB BLOOD ORDERABLES Final Result Performing Organization Address [facility] Co de Phone Number [facility] [address] [place] [phone] * Hepatitis B Surface Antibody, Qualitative (03/19/2025 1:48 PM EDT) ~Hepatitis B Surface Antibody NONREACTIVE Nonreactive [facility] Comment:Nonreactive: < 8.00 mIU/mL Blood Venous blood specimen / Unknown 03/19/2025 1:48 PM EDT 03/19/2025 2:38 PM EDT us Henrique Whittaker MD LAB BLOOD ORDERABLES Final Result Performing Organization Address [facility] de Phone Number [facility] [address] [place] [phone] * (ABNORMAL) Prothrombin Time-INR (03/19/2025 1:48 PM EDT) Prothrombin Time 12.6(H) 10.9 - 12.4 SEC [facility] INTERNATIONAL NORM RATIO 1.1 0.9 - 1.1 [facility] Comment:INTERNATIONAL NORMAL IZED RATIO (INR) REFERENCE [...] BLOOD ORDERABLES Final Result Performing Organization Address [facility] de Phone Number [facility] [address] [place] [phone] * (ABNORMAL) Reticulocyte Count (03/19/2025 1:48 PM EDT) Pathologist [facility] [place] Reticulocytes Absolute 0.043 0.026 - 0.095 X10*6/uL [facility] Immature Retic Fraction 6.5 3.0 - 15.9 % [facility] Retic HGB Equivalent 26.2(L) 30.0 - 35.0 pg [facility] Reticulocyte Percent 1.0 0.5 - 1.8 % [facility] Blood Venous blood specimen / Unknown 03/19/2025 1:48 PM EDT 03/19/2025 2:38 PM EDT us Henrique Whittaker MD LAB BLOOD ORDERABLES Final Result Performing Organization Address [facility] Phone Number [facility] [address] [place] [phone] * Ferritin (03/19/2025 1:48 PM EDT) Pathologist [facility] [place] Ferritin 125 10 - 250 ng/mL [facility] Blood Venous blood specimen / Unknown 03/19/2025 1:48 PM EDT 03/19/2025 2:38 PM EDT Henrique Whittaker MD LAB BLOOD ORDERABLES Final Result Performing Organization Address [facility] Phone Number [facility] [address] [place] [phone] * Albumin, Random Urine W/Creatinine (03/11/2025 1:50 PM EDT) Pathologist [facility] [place] Creatinine, Urine 126.46 mg/dL [facility] Microalbumin Urine 6.0 mg/L [facility] Microalbum Creatinine Ratio Ur 4.7 <30 ug/mg cr [facility] Comment:Albumin/Creatinine R atio Reference Ranges: Normal: < 30 ug/mg creatinine Microalbuminuria: 30 - 300 ug/mg creatinineClinical Albuminuria: > 300 ug/mg creatinine Urine (Urine, Random) 03/11/2025 1:50 PM EDT 03/11/2025 5:48 PM EDT us Henrique Whittaker MD LAB URINE ORDERABLES Final Result [facility] [address] [place] [phone] * T-SPOT??.TB (03/11/2025 1:46 PM EDT) Pathologist [facility] [place] T Spot TB Negative Negative [facility] Comment:A negative test resu lt does [...] as aquantitative test. TS PANEL A 0 [facility] TS PANEL B 0 [facility] Negative Control Passed [facility] Positive Control Passed [facility] Comment:For additional infor baylee, please refer tohttp://education.Hunie/faq/IAY327(This link is being provided for informational/educational purposes only.)THIS TEST WAS PERFORMED AT:[facility]IIHH[facility]E[address] [place] [address]PUCWUSPJAZMYNE BONNER MD,PHD 03/11/2025 1:46 PM EDT 03/11/2025 2:26 PM EDT us Henrique Whittaker MD LAB BLOOD ORDERABLES Final Result Performing Organization Address City/[facility]/ZIP Co de Phone Number [facility] [address] [place] [phone] * Helicobacter pylori??Antigen, EIA, Stool (03/11/2025 9:30 AM EDT) [facility] H pylori Ag Stool SEE [facility] Comment:HELICOBACTER PYLORI AG, EIA, STOOL Micro Number: [id number] Test Status: Final Specimen Source: Stool Specimen Quality: Adequate H.pylori Ag: Not Detected Antimicrobials, proton pump inhibitors, and bismuth preparations inhibit H. pylori and ingestion up to two weeks prior to testing may cause false negative results. If clinically indicated the test should be repeated on a new specimen obtained two weeks after discontinuing treatment. Reference Range: Not DetectedTHIS TEST WAS PERFORMED AT:[facility] [address] [phone] NASSAR MD Stool Rectal contents / Unknown 03/11/2025 9:30 AM EDT 03/11/2025 2:36 PM EDT us Otilia Quiñones MD LAB BODY FLUIDS AND STOOLS OR DERABLES Final Result Performing Organization Address [facility] Co de Phone Number [facility] [address] [place] [phone] * POCT Rapid Strep A OSOM (03/09/2025 2:44 PM EDT) Only the most recent of2 resultswithin the time period is included. Rapid Strep A Screen Negative Negative, None Detected QC Media Lot # [id number] Lot# Expiration Date , Swab 03/09/2025 2:44 PM EDT Henrique Whittaker MD POINT OF CARE TEST ENTER/ED IT ORDERABLES Final Result * CT Chest w/ Contrast (03/05/2025 1:32 PM EDT) Anatomical Region Laterality Modality Body, Chest Computed Tomogra phy 03/05/2025 1:32 PM EDT Narrative 03/05/2025 2:05 PM EDT [place] [address] CT Scan Report Signed Patient: Geovanna Hobbs MR#: [id number] 73 : 1975 Acct:[id number] Age/Sex: 49 / F ADM Date: 03/05/25 Loc: HO.CT Attending Dr: Otilia Quiñones MD Ordering Physician: Otilia Quiñones MD Date of Service: 03/05/25 Procedure(s): CT chest w IV con Accession Number(s): [id number] cc: Otilia Quiñones MD Report Number: [id number]: Total DLP = 90.00 mGy-cm Reason for [...] 03/05/25 1402 DD/ 1332 TD/TT: 03/05/25 1345 [employer] Operator: Procedure Note Donotuseinterpreter, Image - 03/05/[address] [place] [address] [address] Scan Report Signed Patient: Geovanna HobbsMR#: [id number] 73 : 1975Acct:[id number] Age/Sex: 49 / FADM Date: 03/05/25 Loc: HO.CT Attending Dr: Otilia Quiñones MD Ordering Physician: Otilia Quiñones MD Date of Service: 03/05/25 Procedure(s): CT chest w IV con Accession Number(s): [id number] cc: Otilia Quiñones MD Report Number: [id number]: Total DLP = 90.00 mGy-cm Reason for [...] linear scarring that has been present since 2013. Peripheral blebs are present in the anteromedial [...] 03/05/25 1402 DD/ 1332 TD/TT: 03/05/25 1345 [employer] Operator: us Otilia Quiñones MD IMG CT PROCEDURES Final Resul t * CT Soft Tissue Neck w/ Contrast (02/17/2025 12:31 PM EDT) Anatomical Region Laterality Modality Head, Neck Computed Tomogra phy 02/17/2025 12:3 1 PM EDT Narrative 02/17/2025 1:12 PM EDT [address] [address] [address] Scan Report Signed Patient: Geovanna Hobbs MR#: [id number] 73 : 1975 Acct:[id number] Age/Sex: 49 / F ADM Date: 02/17/25 Loc: HO.ED Attending Dr: Ordering Physician: Tin Leger MD Date of Service: 02/17/25 Procedure(s): CT soft tissue neck w IV con Accession Number(s): [id number] cc: Otilia Quiñones MD; Tin Leger MD Report Number: [id number]: Total DLP = 406.00 mGy-cm Reason for [...] Retropharangeal Space: -Normal. Parapharyngeal Fat Planes: -Normal. Recruiting Administrator Spaces: -Normal. Anterior Cervical Space: -Normal. Imaged [...] 02/17/25 1309 DD/ 1231 TD/TT: 02/17/25 1250 [employer] Operator: Procedure Note Donotuseinterpreter, Image - 02/17/[address] [place] [address] [address] Scan Report Signed Patient: Geovanna HobbsMR#: [id number] 73 : 1975Acct:[id number] Age/Sex: 49 / FADM Date: 02/17/25 Loc: HO.ED Attending Dr: Ordering Physician: Tin Leger MD Date of Service: 02/17/25 Procedure(s): CT soft tissue neck w IV con Accession Number(s): [id number] cc: Otilia Quiñones MD; Tin Leger MD Report Number: [id number]: Total DLP = 406.00 mGy-cm Reason for [...] Retropharangeal Space: -Normal. Parapharyngeal Fat Planes: -Normal. Recruiting Administrator Spaces: -Normal. Anterior Cervical Space: -Normal. Imaged [...] 02/17/25 1309 DD/ 1231 TD/TT: 02/17/25 1250 [employer] Operator: [facility] External Provider IMG CT PROCEDURES Edited Result - Final * Sjogren's Antibodies (SS-A,SS-B) (02/10/2025 12:48 PM EDT) Sjogren's Antibody (SS-A) <1.0 NEG <1.0 NEG AI [facility] Sjogren's Antibody (SS-B) <1.0 NEG <1.0 NEG [facility] Comment:THIS TEST WAS PERFOR MED AT:[facility] [place] [phone] NASSAR MD 02/10/2025 12:4 8 PM EDT 02/10/2025 2:17 PM EDT Otilia Quiñones MD LAB BLOOD ORDERABLES Final Re sult Performing Organization Address [facility] Co de Phone Number [facility] [address] [place] [phone] * Culture, Throat (02/10/2025 11:55 AM EDT) Throat Structure of anterior region of neck / Unknown 02/10/2025 11:55 AM EDT 02/10/2025 2:18 PM EDT Comment:Throat Narrative [facility] - 02/12/2025 11:46 AM EDT Throat Culture No Group A Beta-hemolytic Streptococci isolated. Specimen Source: Throat Otilia Quiñones MD LAB MICROBIOLOGY - GENERAL OR DERABLES Final Result Performing Organization Address [facility] de Phone Number [facility] [address] [place] [phone] * Hepatitis C Antibody with Reflex to HCV, RNA, Quantitative, Real-Time PCR (10/15/2024 1:34 PM EDT) Hepatitis C Antibody Nonreactive Nonreactive [facility] Comment:Antibodies to HCV no t detected; does not exclude early acuteHCV infection. Blood Venous blood specimen / Unknown 10/15/2024 1:34 PM EDT 10/15/2024 2:19 PM EDT Otilia Quiñones MD LAB BLOOD ORDERABLES Final Re sult Performing Organization Address [facility] Co de Phone Number [facility] [address] [place] [phone] * HIV-1/2 Antigen and Antibodies, Fourth Generation, with Reflexes (10/15/2024 1:34 PM EDT) HIV AB/AG Nonreactive Nonreactive [facility] Comment:HIV-1 p24 Ag and/or HIV-1/HIV-2 Ab not detected.A test result that is nonreactive does not exclude thepossibility of exposure to or infection with HIV-1 and/orHIV-2. Nonreactive results in this assay for individualswith prior exposure to HIV-1 and/or HIV-2 may be due toantigen and antibody levels that are below the limit ofdetection of this assay.[employer] HIV Ag/Ab Combo assay result andsupplemental assay results should be interpreted inconjunction with the patient's clinical presentation,history and other laboratory results. If the results areinconsistent with clinical evidence, additional testing issuggested to confirm the result. Blood Venous blood specimen / Unknown 10/15/2024 1:34 PM EDT 10/15/2024 2:19 PM EDT us Otilia Quiñones MD LAB BLOOD ORDERABLES Final Re sult [facility] [address] [place] [phone] * BI Mammogram Diagnostic Tomosynthesis Bilateral (06/17/2024 11:18 AM EST) Anatomical Region Laterality Modality Breast Bilateral Mammography 06/17/2024 11:1 8 AM EST Narrative 06/17/2024 1:06 PM EST [facility] [address] [place] [address] Mammography Report Signed Patient: Geovanna Hobbs MR#: [id number] 73 : 1975 Acct:[id number] Age/Sex: 48 / F ADM Date: 06/17/24 Loc: SUBHASH Attending Dr: Yunier Bentley MD Ordering Physician: Yunier Bentley MD Results: 2Beni gn Findings Date of Service: 06/17/24 Follow Up: 1 Year From Orig inal Mammogram Procedure(s): MM tomosynthesis diagnostic BI Accession Number(s): [id number] cc: Otilia Quiñones MD; Yunier Bentley MD [...] by: Criselda Jimenez DO 06/17/2024 01:03 PM [facility] Dictated By: Criselda Jimenez DO Signed By: <Electronically signed by Criselda Jimenez DO in OV> 06/17/24 1303 DD/ 1118 TD/TT: 06/17/24 1146 [employer] Operator: Procedure Note Donotuseinterpreter, Image - 06/17/2024 [place] [facility] [address] [place] [address] Mammography Report Signed Patient: Geovanna HobbsMR#: [id number] 73 : 1975Acct:[id number] Age/Sex: 48 / FADM Date: 06/17/24 Loc: HO.MAMMO Attending Dr: Yunier Bentley MD Ordering Physician: Yunier Bentley MDResults: 2Beni gn Findings Date of Service: 06/17/24Follow Up: 1 Year From Orig ina Mammogram Procedure(s): MM tomosynthesis diagnostic BI Accession Number(s): [id number] cc: Otilia Quiñones MD; Yunier Bentley MD [...] 06/17/24 1303 DD/ 1118 TD/TT: 06/17/24 1146 [employer] Operator: [facility] External Provider IMG BI PROCEDURES Final [...] along with historic and current clinical information. Furniture Associate : SEE COMMENT [facility] Comment: BK,CT(ASCP) CT screening location: [address] Interpretation/R esult: Negative for intraepithelial lesion or malignancy. [facility] LMP: 06/03/2020 [facility] Prev. BX: NONE GIVEN [facility] Prev. PAP: NONE GIVEN [facility] Review Furniture Associate : SEE COMMENT [facility] Comment: SL, CT(ASCP) CT screening location: [address] [address] SOURCE: None given [facility] Statement Of Adequacy: SEE COMMENT [facility] Comment: Satisfactory for evaluation. Endocervical/transformation zone component absent. 08/02/2020 9:01 AM EST us Thania HORN LAB PATHOLOGY ORDERABLES Final Result [facility] [address] * HPV mRNA E6/E7 (08/02/2020 9:01 AM EST) HPV nRNA E6/E7 Not Detected Not Detected [facility] Comment: Methodology: Dermatology Teacher-Mediated Amplification This assay detects E6/E7 viral messenger RNA (mRNA) from 14 high-risk HPV types (16,18,31,33,35,39,45,51,52,56,58,59,66,68). The analytical performance characteristics of this assay have been determined by [employer]. The modifications have not been cleared or approved by the FDA. This assay has been validated pursuant to the CLIA regulations and is used for clinical purposes. For additional information, please refer to http://education.PayParade Pictures.CareParent/faq/HLC119l4 (This link if provided for information/ educational purposes only.) 08/02/2020 9:01 AM EST us Thania Alvarez CN LAB BLOOD ORDERABLES Kelly vicki Result [facility] [address] from Last 3 Months or Most Recently Relevant to Health Maintenance Insurance [facility] C3 DENTAL-[facility] MEDICAID STAND ADULT Care Teams Pillow Filler Relationship Specialty Start Date End Date Otilia Quiñones MD [address] [place] [phone] PCP - General Family Medicine 09/15/13
--- OUTSIDE RECORDS SUMMARY | 2025-04-08 16:08 | XMS_ITS | Encounter Summary ---
Author Organization [employer] Address [address] [facility] [address]t [place] [address] Care Team Providers Care Logistics Operations Director Name Role Phone Otilia Quiñones MD Primary Care Provider [phone] Encounter Details Date Type Department Care Team (Late st Contact Info) Description 03/28/2023 Abstract [facility] [address] [place] [address] Otilia Quiñones MD [address] [place], [place] [phone] Social History Tobacco Use Types Packs/Day Years [...] Upcoming Encounters Date Type Department Care Team ([facility] st Contact Info) Description 05/05/2025 11:00 AM EST Office Visit [facility] [address] [place] [address] Otilia Quiñones MD [address] [place] [address] documented as of this encounter Visit Diagnoses Not on filedocumented in this encounter Care Teams Logistics Operations Director Relationship Specialty Start Date End Date Otilia Quiñones MD [address] [place] [address] PCP - General Family Medicine 09/15/13 documented as of this encounter
--- OUTSIDE RECORDS SUMMARY | 2025-04-08 16:08 | XMS_ITS | Encounter Summary ---
Author Organization [employer] Address [address] [place] [address] 7t [place] [address] Care Team Providers Care Logging Shovel Operator Name Role Phone Otilia Quiñones MD Primary Care Provider [phone] Reason for Referral * Consultation (STAT) - Canceled Specialty Diagnoses / Procedures Referred By Contmarcela t Referred To Contact Endocrinology Diagnoses Hyperthyroidism Kristi Calderon NP [address] [place] [address] Phone: tel: fax: Referral ID Status Reason Start Date Expiration Date Visits Requested Visits Authorized [id number] Canceled Specialty Services Required 03/28/2025 03/28/2026 1 1 Encounter Details Date Type Department Care Team (Late st Contact Info) Description 03/28/2025 Telephone [facility] [address] [place], [place] [phone] Kristi Calderon NP [address] [place], [place] [phone] Social History Tobacco Use Types Packs/Day Years [...] encounter Miscellaneous Notes * Telephone Encounter - Kristi Calderon NP - 03/28/2025 2:52 PM EDT 03/27/25 - call from Jane staton, Pt presented to er with chronic symptoms but recently swelling of eyes. TSH noted to be Lab Results Component Value Date TSH <0.01 (L) 03/22/2025 TRAB 21.44 Thyroiglolbulin panel 14.6 Free t4 2.85 Pt was not found to be in thyroitoxicosis started on atenolol , requested close follow up with Pcp (week of 03/28/25) and referral to endocrinology. Referral placed. Note [facility]ch for scheduling. documented in this encounter Plan of Treatment Upcoming Encounters Date Type Department Care Team ([facility] st Contact Info) Description 05/05/2025 11:00 AM EST Office Visit [facility] [address] [place] [address] Otilia Quiñones MD [address] [place] [address] Scheduled Referrals Name Type Priority Associated Diagnoses Order Schedule Referral to Endocrinology Outpatient Referral STAT Hyperthyroidism Expected: 03/28/2025 (Approximate), Expires: 03/28/2026 documented as of this encounter Visit Diagnoses Diagnosis Hyperthyroidism- Primary Thyrotoxicosis without mention of goiter or other cause, without mention of thyrotoxic crisis or storm documented in this encounter Additional Health Concerns Assessment Noted Time PHQ-9 Depression Total Score: 0 07/03/19 24 10:45 AM EST documented as of this encounter Care Teams Logging Shovel Operator Relationship Specialty Start Date End Date Otilia Quiñones MD [address] [place] [address] PCP - General Family Medicine 09/15/13 documented as of this encounter
--- OUTSIDE RECORDS SUMMARY | 2025-04-08 16:08 | XMS_ITS | Encounter Summary ---
Author Organization [employer] Address [address] [facility] [address] [place] [address] Care Team Providers Care Building Maintenance Superintendent Name Role Phone Otilia Quiñones MD Primary Care Provider [phone] Encounter Details Date Type Department Care Team (Late st Contact Info) Description 04/08/2025 Orders Only [facility] External Provider, [facility] Social History Tobacco Use Types Packs/Day Years [...] Upcoming Encounters Date Type Department Care Team ([facility] st Contact Info) Description 05/05/2025 11:00 AM EST Office Visit [facility] [address] [place], [place] [phone] Otilia Quiñones MD [address] [place], [place] [phone] documented as of this encounter Procedures Procedure Name Priority Date/Time Associated Diagnosis Comments XR CHEST 1 VIEW Routine 04/08/2025 2:38 PM EST NT-PROBNP Routine 04/08/2025 2:22 PM EST BASIC METABOLIC PANEL Routine 04/08/2025 2:22 PM EST documented in this encounter Results * XR Chest 1 View (04/08/2025 2:38 PM EST) Anatomical Region Laterality Modality Chest Radiographic Renée ging 04/08/2025 2:38 PM EST Narrative 04/08/2025 2:47 PM EST [address] [address] XRay Report Signed Patient: Geovanna Hobbs MR#: [id number] 74 : 1975 Acct:[id number] Age/Sex: 49 / F ADM Date: 04/08/25 Loc: [facility] Attending Dr: Reinaldo Bowie NP Ordering Physician: Reinaldo Bowie NP Date of Service: 04/08/25 Procedure(s): XR chest 1V Accession Number(s): [id number] cc: Otilia Quiñones MD; Reinaldo Bowie NP [...] MD Signed By: <Electronically signed by Jessy Jena MD in OV> 04/08/25 1444 DD/ 37 TD/TT: 04/08/251437 Fast Food Server: SAM Procedure Note Donotuseinterpreter, Image - 04/08/2025 [place] [address] XRay Report Signed Patient: Geovanna HobbsMR#: [id number] 74 : 1975Acct:[id number] Age/Sex: 49 / FADM Date: 04/08/25 Loc: [facility] Attending Dr: Reinaldo Bowie NP Ordering Physician: Reinaldo Bowie NP Date of Service: 04/08/25 Procedure(s): XR chest 1V Accession Number(s): [id number] cc: Otilia Quiñones MD; Reinaldo Bowie NP [...] 04/08/25 1444 DD/ 1438 TD/TT: 04/08/25 1438 Fast Food Server: SAM us [facility] External Provider IMG XR PROCEDURES Final Result * (ABNORMAL) NT-proBNP (04/08/2025 2:22 PM EST) NT-proBNP 997.0(H) <300 pg/mL [facility] Comment:Reference Range:Age Group (years) NT-proBNP (pg/ml) InterpretationAll <300 Negative: HF unlikelyFor patients presenting to the ED with clinical suspicion ofnew onset or worsening HF, see below:18 to <50 >299.9 to <450.0 Grayzone: [id number] to 75 >299.9 to <900.0 other causes of>75 >299.9 to <1800.0 NT-proBNP [id number] to <50 >449.9 Positive: HF [id number] >899.9>75 >1799.9Note: Elevated NT-proBNP levels should be interpreted inthe context of other clinical information. 04/08/2025 2:22 PM EST 04/08/2025 2:22 PM EST Generic External Data Provider LAB BLOOD ORDERAB LES Final Result [facility] [address] [place] [address] [phone] * (ABNORMAL) Basic Metabolic Panel (04/08/2025 2:22 PM EST) Sodium 141 135 - 145 mmol/L [facility] Potassium 4.3 3.3 - 5.1 mmol/L [facility] Chloride 108 96 - 108 mmol/L [facility] Carbon Dioxide 28 22 - 29 mmol/L [facility] Anion Gap 9(L) 12 - 20 [facility] Urea Nitrogen (BUN) 14 9 - 16 mg/dL [facility] Creatinine, Serum 0.58 0.5 - 1.4 mg/dL [facility] Estimated Glomerular Filt Rate >60 [facility] Comment:Chronic Kidney Disea se: Estimated GFR < 60 mL/min/1.35o5Btajwb Kidney Disease: Estimated GFR < 15 mL/min/1.73m2 Glucose 122(H) 60 - 115 mg/dL [facility] Calcium 9.6 8.4 - 10.2 mg/dL [facility] 04/08/2025 2:22 PM EST 04/08/2025 2:22 PM EST us Generic External Data Provider LAB BLOOD ORDERAB LES Final Result [facility] [address] [place] [address] [phone] documented in this encounter Visit Diagnoses Not on filedocumented in this encounter Additional Health Concerns Assessment Noted Time PHQ-9 Depression Total Score: 0 07/03/19 24 10:45 AM EST documented as of this encounter Care Teams Building Maintenance Superintendent Relationship Specialty Start Date End Date Otilia Quiñones MD [address] [place] [phone] PCP - General Family Medicine 09/15/13 documented as of this encounter
--- OUTSIDE RECORDS SUMMARY | 2025-04-08 16:08 | XMS_ITS | Encounter Summary ---
Author Organization [employer] Address [address] [place] [address] 7 [place] [address] Care Team Providers Care Hydraulic Operator Name Role Phone Otilia Quiñones MD Primary Care Provider [phone] Encounter Details Date Type Department Care Team [...] Description 05/05/2025 11:00 AM EST Office Visit [facility] [address] [place] [address] Otilia Quiñones MD [address] [place] [address] documented as of this encounter Visit Diagnoses Not on filedocumented in this encounter Care Teams Hydraulic Operator Relationship Specialty Start Date End Date Otilia Quiñones MD [address] [place] [address] PCP - General Family Medicine 09/15/13 documented as of this encounter
--- OUTSIDE RECORDS SUMMARY | 2025-04-08 16:08 | XMS_ITS | Encounter Summary ---
Author Organization [employer] Address [address] [place] [address] 7[address] [place] [address] Care Team Providers Care Fire Watchman Name Role Phone Otilia Quiñones MD Primary Care Provider [phone] Encounter Details Date Type Department Care Team ([facility] Contact Info) Description 02/17/2025 Results Follow-Up [facility] [address] [place], [place] [phone] Otilia Quiñones MD [address] [place] [address] CT Soft Tissue Neck w/ Contrast Social [...] ([facility] st Contact Info) Description 05/05/2025 11:00 AM EST Office Visit [facility] [address] [place] [address] Otilia Quiñones MD [address] [place] [address] documented as of this encounter Visit Diagnoses Not on filedocumented in this encounter Additional Health Concerns Assessment Noted Time PHQ-9 Depression Total Score: 0 07/03/19 24 10:45 AM EST documented as of this encounter Care Teams Fire Watchman Relationship Specialty Start Date End Date Otilia Quiñones MD [address] [place] [address] PCP - General Family Medicine 09/15/13 documented as of this encounter
--- OUTSIDE RECORDS SUMMARY | 2025-04-08 16:08 | XMS_ITS | Encounter Summary ---
Author Organization [employer] Address [address] [place] [address] 7 [place] [address] Care Team Providers Care Dental Aide Name Role Phone Otilia Quiñones MD Primary Care Provider [phone] Reason for Visit * Reason Comments Med Refill Encounter Details Date Type Department Care Team ([facility] st Contact Info) Description 11/22/2023 Refill [facility] [address] [place], [place] [phone] Otilia Quiñones MD [address] [place], [place] [phone] Social History Tobacco Use Types Packs/Day Years [...] Upcoming Encounters Date Type Department Care Team ([facility] st Contact Info) Description 05/05/2025 11:00 AM EST Office Visit [facility] [address] [place] [address] Otilia Quiñones MD [address] [place] [address] documented as of this encounter Visit Diagnoses Not on filedocumented in this encounter Additional Health Concerns Assessment Noted Time PHQ-9 Depression Total Score: 0 07/03/19 24 10:45 AM EST documented as of this encounter Care Teams Dental Aide Relationship Specialty Start Date End Date Otilia Quiñones MD [address] [place] [address] PCP - General Family Medicine 09/15/13 documented as of this encounter
== END 2025-04-08 14:06 | disposition home or self-care (01) ==
LOC: HO.HCS 13:18
PROVIDERS: PCP Pediatrics
DX: R07.9 Chest pain, unspecified (principal); R06.02 Shortness of breath; R00.2 Palpitations; R60.0 Localized edema
CPT/HCPCS: 93010; 99204

== ENCOUNTER → 2025-04-08 14:24 | Outpatient (BNV) | payer MEDICAID, SELFPAY | PROVIDERS: PCP Pediatrics; Visit Provider Radiology Diagnostic Radiology | DX: R06.02 Shortness of breath (principal) | CPT/HCPCS: 71045 ==

== ENCOUNTER 2025-04-08 15:01 | Outpatient (AMB) | payer MEDICAID, SELFPAY ==
--- NOTE | 2025-04-08 15:07 | A.OFFVIS_ITS ---
Vital Signs 04/08/25 15:08 Height 5 ft 4 in Weight 151 lb 14.629 oz BMI 26.1 BP 90/50 L Blood Pressure Location Rt brachial Position Sitting Pulse 69 Pulse Source Pulse Oximeter Pulse Oximetry (%) 100 Oxygen Delivery Method Room Air Intake Visit Reasons: hyperthyroidism Intake Note: NEW Patient presents today to establish care for Hyperthyroidism: Patient reports feeling dizzy. TSH <0.01 uIU/mL Free T4 3.16 ng/dL Mail Weigher Required: No Accompanied by: Self / Same As Patient Allergies No Known Allergies (No Known Allergies*) Allergy (Verified 04/08/25 15:08) Medication List - Last Reconciled 04/08/25 by Jessica Quick MD atenolol 50 mg (2 x 25 mg) PO DAILY clonidine HCl 0.2 mg PO BEDTIME furosemide (Lasix) 20 mg PO DAILY methimazole 10 mg PO BID HPI Comments Details: 49 years old female with No known medical problems before this, referred to our office for the evaluation of hyperthyroidism. She started with throat pain for 3 years now, associated with chest pain and lef swelling. She was noticed to have mild thyroid hyperfyunction, but no treatment was started. Worseing in the last 3 months: constant, chest pain, dizziness, nausea, SOB. She reports swelling in her eyes, and pain and pressure in her eyes. She was admitted to the hospital on 03/27/25 and she was diagnosed with hyperthyroidism, but not antithyroid medication has been started. No exposure to radiation to neck, head or upper chest No known family history of thyroid disease or thyroid cancer No biotin intake ROS: Energy: low, also poor sleep, SOB Weight: up and down, but has lost 10 lbs in the last 2 weeks CV: palpitations GI: No diarrhea but constipation Nails/Hair: Brittle nails, hair falling Periods: Irregular periods, but known to her for a long time Heat/cold intolerance: Both Hand shaking: Yes Physical exam General: Well appearing. NAD Neck/Thyroid: Thyroid enlarged, no nodules. Eyes: No conjunctival injection, Mild lid lag and proptosis CV: RRR, no murmur. No edema. Resp: Lungs clear to auscultation bilaterally Abdomen: Soft, nontender. nondistended Extremities/Neuro: No weakness, mild tremor of outstretched hands Laboratory Tests 03/27/25 12:43 Sodium 144 Potassium 4.2 BUN 11 Creatinine 0.49 L Calcium 9.7 Magnesium 1.6 AST 33 H ALT 27 Alkaline Phosphatase 72 Albumin 3.8 TSH < 0.01 L Free T4 3.16 H Free T3 >20.0 H Thyroid Stim Immunoglob 310 H PFSH Medical History Throat pain Prolapsed hemorrhoids Bleeding hemorrhoids Smoker Anxiety Surgical History History of tubal ligation H/O section Family History Maternal Grandmother Breast cancer Mother History of high blood pressure Social History Alcohol intake: never Patient Tobacco Use Status: Former Tobacco user Substance Use Type: Marijuana Female Reproductive History Menstrual Age of Menarche: 14 Physical Exam Vital Signs: Last Vital Signs Pulse 69 04/08/25 15:08 BP 90/50 L 04/08/25 15:08 Pulse Ox 100 04/08/25 15:08 Oxygen Delivery Method Room Air 04/08/25 15:08 BMI result Body Mass Index 26.1 Assessment & Plan Assessment & Plan (1) Graves disease: Code(s): E05.00 - Thyrotoxicosis with diffuse goiter without thyrotoxic crisis or storm Category: Medical Plan: 49 years old female with no known past medical history, seen in the office for evaluation of hypothyroidism. She has clinical and laboratory evidence of Graves? disease (autoimmune hyperthyroidism) presenting with thyrotoxicosis and associated ophthalmopathy. She also exhibits mild hepatic enzyme elevation and edema likely secondary to thyrotoxicosis and possible early heart failure. Patient was counseled extensively on the etiology of autoimmune hyperthyroidism, treatment options (antithyroid medication vs. definitive therapy), potential side effects, and the importance of close monitoring. Graves is an autoimmune disease characterized by the production of TSH receptor antibodies, leading to unregulated thyroid hormone production. The natural history includes periods of remission and relapse. With antithyroid drug therapy, about 30-50% of patients may achieve remission after 18-24 months, but recurrences possible especially with younger patients. Definitive therapy (radioactive iodine ablation or thyroidectomy) is considered for those with persistent or relapsing disease, medication intolerance, or patient preference. Plan Start Methimazole 10 mg b.i.d. Change atenolol to 50 mg daily Repeat TSH, free T4, and total T3, liver function tests and CBC in 6 weeks. Schedule follow-up in 2 months for reassessment and medication titration. Discuss potential for remission (30?50% over 18?24 months). If no remission: options include radioactive iodine ablation or thyroidectomy with referral to high-volume endocrine surgeon. Radioiodine likely not the best choice due to close household contact with children and possible thyroid Ophthalmopathy Refer to ophthalmology for evaluation of thyroid eye disease. We discussed side effects of methimazole including GI upset, rash, liver damage and agranulocytosis. Plan 45 minutes spent reviewing previous records, labs, imaging, education and documenting in the chart Orders: Orders Triiodothyronine T3 Free 6 Weeks E05.00 - Thyrotoxicosis with diffuse goiter without thyrotoxic crisis or storm Liver Panel 6 Weeks E05.00 - Thyrotoxicosis with diffuse goiter without thyrotoxic crisis or storm TSH reflex Free T4 6 Weeks E05.00 - Thyrotoxicosis with diffuse goiter without thyrotoxic crisis or storm US thyroid Today E05.00 - Thyrotoxicosis with diffuse goiter without thyrotoxic crisis or storm Complete Blood Count no Diff 6 Weeks E05.00 - Thyrotoxicosis with diffuse goiter without thyrotoxic crisis or storm Referrals Ophthalmology Referral E05.00 - Thyrotoxicosis with diffuse goiter without thyrotoxic crisis or storm Medications: New methimazole 10 mg PO BID 60 tabs 3RF E05.00 - Thyrotoxicosis with diffuse goiter without thyrotoxic crisis or storm Changed From atenolol 25 mg PO DAILY 30 tabs 0RF E05.00 - Thyrotoxicosis with diffuse goiter without thyrotoxic crisis or storm To atenolol 50 mg (2 x 25 mg) PO DAILY 30 tabs 0RF E05.00 - Thyrotoxicosis with diffuse goiter without thyrotoxic crisis or storm Patient Instructions: Methimazole: Patient Instructions on Side Effects What is Methimazole? Methimazole is a medication used to treat hyperthyroidism (overactive thyroid). Possible Side Effects: Most people tolerate methimazole well, but side effects can occur. It is important to recognize them early. Common Side Effects: * Mild rash or itching * Upset stomach, nausea, or mild abdominal pain * Headache * Joint or muscle aches * Changes in taste Serious Side Effects (Call the office or seek care immediately): * Fever, sore throat, or mouth sores:?These may be signs of a low white blood cell count (agranulocytosis), which can be serious. * Unusual bruising or bleeding * Yellowing of the skin or eyes (jaundice), dark urine, or severe fatigue:?These may indicate liver problems. * Severe skin rash or blistering * Shortness of breath or chest pain What to Do: * If you develop a fever (over 100.4?F/38?C), sore throat, or mouth sores, stop taking methimazole and contact the office immediately. * Report any signs of liver problems or unusual bruising/bleeding. * For mild side effects (nausea, mild rash), let your provider know at your next visit. Routine Monitoring: * You will need regular blood tests to monitor your blood counts and liver function while on methimazole. When to Seek Emergency Care: * Difficulty breathing, swelling of the face or throat, or severe allergic reaction (anaphylaxis). Contact Information: If you have any questions or experience any of the above symptoms, contact the office at . JOLLY Treatment: Side Effects Early (Acute) Side Effects * Neck Pain/Swelling: * Due to thyroiditis or gland swelling, usually self-limited. * Sialadenitis (Salivary Gland Inflammation): * Presents as pain/swelling in the parotid or submandibular glands; encourage hydration, sour candies, or lemon drops to stimulate saliva. * Nausea/Vomiting: * Mild and transient; antiemetics may be used if needed. * Altered Taste or Dry Mouth: * Usually temporary. * Mild Radiation Sickness: * Rare at standard doses. Late (Delayed) Side Effects * Hypothyroidism: * Expected in most patients treated for hyperthyroidism or DTC; requires lifelong thyroid hormone replacement. * Persistent or Recurrent Hyperthyroidism: * May require repeat JOLLY or alternative therapy. * Salivary Gland Dysfunction: * Chronic dry mouth, altered taste, or rarely, salivary gland fibrosis. * Dental Caries: * Due to chronic xerostomia. * Lacrimal Gland Dysfunction: * Dry eyes, rarely. * Secondary Malignancies: * Very low risk, but increased with higher cumulative doses. * Gonadal Effects: * Temporary reduction in fertility, especially in men; recommend avoiding conception for 4?6 months post-therapy. Rare but Serious Complications * Radiation Thyroiditis with Severe Neck Swelling: * Risk increased in large goiters or severe tracheal narrowing; consider steroid prophylaxis. * Radiation Pneumonitis or Fibrosis: * Rare, usually with high cumulative doses or pulmonary metastases. Coding Level of Care Code New Pt Level 4 (20346) Diagnoses Graves disease E05.00
[2025-04-08 15:08] VITALS: BP 90/50; PULSE 69; O2SAT 100; BMI 26.1
== END 2025-04-08 15:56 | disposition home or self-care (01) ==
LOC: HO.ENCR 15:02
PROVIDERS: PCP Pediatrics; Visit Provider Student in an Organized Health Care Education/Training Program
DX: E05.00 Thyrotoxicosis with diffuse goiter without thyrotoxic crisis or storm (principal)
CPT/HCPCS: 99204

== ENCOUNTER → 2025-04-19 07:55 | Outpatient (REF) | payer MEDICAID, SELFPAY ==
--- NOTE | ~2025-04-19 | NM_ITS ---
Lexiscan Myocardial perfusion study Indication: Chest pain Technique: The patient was brought in for a Lexiscan perfusion study on 04/19/2025 and was injected 0.4 mg of Lexiscan intravenously. Within a minute of this injection 25 mCi of sestamibi was given intravenously. Images were obtained using the SPECT gamma camera interlaced with the gating device. Images were obtained in supine position. Resting perfusion study was performed on 04/20/2025. Patient was administered 25 mCi of sestamibi intravenously at rest. Images were then obtained in supine position. Total DLP 83 mGy-cm. Images were processed with the software and compared side to side in short axis, horizontal long axis and vertical long axis views. Findings: Raw aquisition reviewed. The stress perfusion study showed decreased tracer uptake in the inferior wall. There is also adjacent subdiaphragmatic tracer uptake Some improvement with CT attenuation correction and hence could have components of diaphragmatic attenuation artifact. The gated study shows normal LV systolic function with calculated LVEF of 72%. LV cavity is normal in size. The gated study shows normal wall thickening and contraction of segments. Resting study shows no significant perfusion abnormality. Gating at rest reveals normal wall motion with ejection fraction at 57%. The findings are consistent with reversible inferior defect that could be from diaphragmatic attenuation artifact and adjacent subdiaphragmatic uptake. NM/NM cardiolite stress test Impression: 1. Myocardial perfusion imaging study shows reversible inferior defect, probably artifactual. Less likely to represent ischemia. 2. Gated LVEF is 72% during stress and 57% during rest. 3. Transient ischemic dilatation not present. EKG component of the test reported separately. Electronically signed by: Ken Scott MD 04/21/2025 11:18 AM [facility]
--- NOTE | 2025-04-19 07:58 | HM_ITS ---
* Total monitoring time 2 days. * Underlying rhythm is sinus with an average rate of 68/Min. * Rare supraventricular ectopy. * Rare ventricular ectopy. * No significant pauses or high-grade AV blocks. * Patient marker associated with sinus rhythm. * No diary events. MTDD
--- NOTE | 2025-04-19 07:58 | CA_ITS ---
Acquisition Time: 2025-04-19 08:08:05 Total Exercise Time: 00:02:03 Test Indications: cp, sob Medications: see h&p Protocol: BRIAN Max HR: 97 BPM 56% of Pred: 172 BPM Max BP: 124/60 mmHG Max Work Load: 4.6 METS Exercise stress test with exercise 2 mins 3 secs of Brian Protocol requesting to stop due to dizziness, BP loer at 80/40. No chest pain or EKG chnages at achieved workload. Test switched to Lexiscan. Pharmacological stress test with Lexiscan while pt marches in chair, with reports of SOB and 4/10 mid chest pressure, without any arrythmias, with normotensive response to injection. Nondiagnostic EKG for ischemia. In recovery, pt treated with IVP Aminophylline 75 mg to reverse Lexiscan after which pt feeling back to baseline. Nuclear images pending. Test reviewed with Dr. Scott. Referred By: Reinaldo Bowie Electronically Signed By: Reinaldo Bowie
== END ==
LOC: HO.CARD 07:55
PROVIDERS: PCP Pediatrics
DX: R00.2 Palpitations (principal); R07.9 Chest pain, unspecified; R06.02 Shortness of breath
CPT/HCPCS: 78452; 93017; 93225; A9500; J0280; J2785

== ENCOUNTER → 2025-04-19 07:58 | Outpatient (BNV) | payer MEDICAID, SELFPAY | PROVIDERS: PCP Pediatrics | DX: I49.3 Ventricular premature depolarization (principal) | CPT/HCPCS: 78452; 93016; 93018; 93227 ==

== ENCOUNTER → 2025-04-22 10:30 | Outpatient (BNV) | payer MEDICAID, SELFPAY | PROVIDERS: PCP Pediatrics; Visit Provider Radiology Diagnostic Radiology | DX: E05.90 Thyrotoxicosis, unspecified without thyrotoxic crisis or storm (principal) | CPT/HCPCS: 78014 ==

== ENCOUNTER → 2025-04-23 10:14 | Outpatient (REF) | payer MEDICAID, SELFPAY ==
--- NOTE | ~2025-04-23 | NM_ITS ---
EXAMINATION: NM THYROID IMAGING AND UPTAKE CLINICAL INFORMATION: HYPERTHYROIDISM COMPARISON: Correlation is made with a CT of the neck with contrast dated 02/17/2025. TECHNIQUE: Following the oral administration of 287 microcuries of I-123 sodium iodide, thyroid uptake was performed and expressed as a percentage of the administrated dose. Gamma scintillation camera images of the thyroid in the anterior and right and left anterior oblique views were obtained using a pinhole collimator following the administration of 10 mCi Tc-99m pertechnetate. FINDINGS: There is a normal homogeneous distribution of activity throughout both thyroid lobes. No foci of abnormal increased or decreased uptake are identified. There is apparent middle lobe. The uptake is 67.3% at 3 hours and 57.2% at 24 hours. NM/NM thyroid w uptake IMPRESSION: No focal thyroid abnormality is seen. Markedly elevated uptake at 3 hours and 24 hours, compatible with Graves' disease. Electronically signed by: Fredy Nino MD 04/23/2025 11:37 AM [place]
--- OUTSIDE RECORDS SUMMARY | 2025-04-23 10:51 | XMS_ITS | Clinical Summary ---
Author Organization [employer] Address [address] [facility] [address] [place] [address] Care Team Providers Care Book Or Script Editor Name Role Phone Otilia Quiñones MD Primary Care Provider [phone] Allergies No known active allergies Medications hydrOXYzine [...] TTE with noted elevated ProBNP I [place] [facility] [place] pt is going ,discuss w pt option to go to [facility] to make sure she can be seen by Content Publisher but pt prefers to go to [facility] -Pt had referred already by previous provider for NM thyroid scan -has apt 04/2025 and referred for Content Publisher -has apt 05/2025 --[facility] -Endy Kidd will help calling Content Publisher office to request STAT evaluation on Saturday [...] Encounters Date Type Department Care Team Description 04/22/2025 Telephone [facility] [address] [place] [phone] Otilia Quiñones MD [facility] Request for Updated [place] Order 04/19/2025 Orders Only [facility] External Provider, [facility] Hyperthyroidism (Primary Dx) 04/08/2025 Orders Only [facility] External Provider, [facility] 03/30/2025 11:00 AM EDT Office Visit [facility] [address] [place], [place] [phone] Otilia Quiñones MD Hyperthyroidism (Primary Dx); Sore throat; Graves' disease with exophthalmos 03/30/2025 Travel 03/29/2025 Telephone [facility] [address] [place], [place] [phone] Otilia Quiñones MD 03/28/2025 Telephone [facility] [address] [place] [phone] Kristi Calderon NP 03/27/2025 9:40 AM EDT Office Visit [facility] [address] [place] [address] [phone] Constance Myers MD Graves disease (Primary Dx); Sore throat; Fever and chills; Exophthalmos of both eyes; Graves' disease with exophthalmos 03/27/2025 Orders Only GENERIC EXTERNAL DATA DEPARTMENT Provider, Generic External Data 03/27/2025 Travel 03/22/2025 Telephone [facility] [address] [place], [place] [phone] Otilia Quiñones MD 03/22/2025 Orders Only GENERIC EXTERNAL DATA DEPARTMENT Provider, Generic External Data 03/15/2025 Results Follow-Up [facility] [address] [place] [address] Darling Toussaint, KATHRYN Albumin, Random Urine W/Creatinine, Comprehensive Metabolic Panel, TSH W/Reflex to FT4, Additional followed-up results: 2 03/11/2025 Orders Only [facility] [address] [place] [address] Henrique Whittaker MD Hyperthyroidism (Primary Dx); Transaminitis 03/11/2025 Orders Only [facility] [address] [place] [address] Henrique Whittaker MD 03/09/2025 1:20 PM EDT Office Visit [facility] [address] [place] [address] Henrique Whittaker MD Edema, lower extremity (Primary Dx); Sore throat 03/09/2025 10:30 AM EDT Office Visit [facility] [address] [place] [address] Yoshi Sandoval, JUDI Dental caries (Primary Dx); Gingivitis 03/09/2025 Travel 03/08/2025 Results Follow-Up [facility] [address] [place] [address] Linda Matthews, KATHRYN CT Chest w/ Contrast 02/17/2025 Results Follow-Up [facility] [address] [place] [address] Otilia Quiñones MD CT Soft Tissue Neck w/ Contrast 02/17/2025 Orders Only [facility] External Provider, [facility] 02/12/2025 Results Follow-Up [facility] [address] [place] [address] Otilia Quiñones MD CBC auto differential, Sjogren's Antibodies (SS-A,SS-B), POCT Rapid Strep A OSOM, Additional followed-up results: 2 02/10/2025 11:30 AM EDT Office Visit [facility] [address] [place] [address] Otilia Quiñones MD Dermatitis (Primary Dx); Iron deficiency anemia, unspecified iron deficiency anemia type; Palpitations; Sore throat 02/10/2025 Travel 02/09/2025 Telephone [facility] [address] [place] [address] Otilia Quiñones MD Chart Prep 02/03/2025 9:30 AM EDT Office Visit [facility] [address] [place] [address] Yoshi Sandoval DMD Partial edentulism, unspecified edentulism class (Primary Dx) 02/02/2025 1:00 PM EDT Office Visit [facility] [address] [place] [address] Yoshi Sandoval DMD Dental caries (Primary Dx) 01/28/2025 Refill [facility] [address] [place] [address] Henrique Whittaker MD RBC microcytosis from Last 3 Months Immunizations Immunization Administration [...] Description 05/05/2025 11:00 AM EST Office Visit [facility] [address] [place] [address] Otilia Quiñones MD [address] [place] [address] Health Maintenance Due Date Last Done Comments CT Colonography 1975 Colonoscopy 1976 Colorectal Cancer Screening 1976 FIT DNA/Cologuard 1976 FIT 1976 FOBT 1975 Sigmoidoscopy 1975 Family Planning (PISQ) 1991 Hepatitis B Vaccines (1 of 3 - 19+ 3-dose series) 1995 SDOH Screening 06/15/2023 06/15/2022 Dental X-Ray: Full Mouth 08/13/2023 08/11/2020, 12/02 COVID-19 Vaccine ( season) 2025 Influenza Vaccine (#1) 2025 Mammogram 06/17/2025 06/17/2024, 06/03, 02/12/2023, Additional history exists Cervical Cancer Screening [...] Procedure Name Priority Date/Time Associated Diagnosis Comments STRESS TEST WITH MYOCARDIAL PERFUSION Routine 04/19/2025 9:19 AM EST XR CHEST 1 VIEW Routine 04/08/2025 2:38 [...] Routine 02/02/2025 1:00 PM EDT Dental caries BITEWING - SINGLE RADIOGRAPHIC IMAGE [...] Recently Relevant to Health Maintenance Results * Stress test with myocardial perfusion (04/19/2025 9:19 AM EST) 04/19/2025 9:19 AM EST Narrative [facility] - 04/21/2025 11:21 AM EST [address] [place] [address] Nuclear Medicine Report Signed Patient: Geovanna Hobbs MR#: [id number] 73 : 1975 Acct:[id number] Age/Sex: 49 / F ADM Date: 04/19/25 Loc: .CARD Attending Dr: Reinaldo Bowie NP Ordering Physician: Reinaldo Bowie NP Date of Service: 04/19/25 Procedure(s): DE cardiolite stress test Accession Number(s): [id number] cc: Otilia Quiñones MD; Reinaldo Bowie NP Reason for Exam: R07.9 - Chest pain, unspecifiedLEXISCAN STRESS TEST Lexiscan Myocardial perfusion study Indication: Chest pain Technique: The patient was brought in for a Lexiscan perfusion study on 04/19/2025 and was injected 0.4 mg of Lexiscan intravenously. Within a minute of this injection 25 mCi of sestamibi was given intravenously. Images were obtained using the SPECT gamma camera interlaced with the gating device. Images were obtained in supine position. Resting perfusion study was performed on 04/20/2025. Patient was administered 25 mCi of sestamibi intravenously at rest. Images were then obtained in supine position. Total DLP 83 mGy-cm. Images were processed with the software and compared side to side in short axis, horizontal long axis and vertical long axis views. Findings: Raw aquisition reviewed. The stress perfusion study showed decreased tracer uptake in the inferior wall. There is also adjacent subdiaphragmatic tracer uptake Some improvement with CT attenuation correction and hence could have components of diaphragmatic attenuation artifact. The gated study shows normal LV systolic function with calculated LVEF of 72%. LV cavity is normal in size. The gated study shows normal wall thickening and contraction of segments. Resting study shows no significant perfusion abnormality. Gating at rest reveals normal wall motion with ejection fraction at 57%. The findings are consistent with reversible inferior defect that could be from diaphragmatic attenuation artifact and adjacent subdiaphragmatic uptake. DE/DE cardiolite stress test Impression: 1. Myocardial perfusion imaging study shows reversible inferior defect, probably artifactual. Less likely to represent ischemia. 2. Gated LVEF is 72% during stress and 57% during rest. 3. Transient ischemic dilatation not present. EKG component of the test reported separately. Electronically signed by: Ken Scott MD 04/21/2025 11:18 AM EST Dictated By: Ken Scott MD Signed By: <Electronically signed by Ken Scott MD in OV> 04/21/25 1118 DD/ 0919 TD/TT: 04/20/25 1150 Property Insurance Inspector: Procedure Note Donotuseinterpreter, Image - 04/21/[address] [address] Nuclear Medicine Report Signed Patient: Geovanna Hobbs#: [id number] 73 : 1975Acct:[id number] Age/Sex: 49 / FADM Date: 04/19/25 Loc: .[facility] Attending Dr: Reinaldo Bowie NP Ordering Physician: Reinaldo Bowie NP Date of Service: 04/19/25 Procedure(s): NM cardiolite stress test Accession Number(s): [id number] cc: Otilia Quiñones MD; Reinaldo Bowie NP Reason for Exam: R07.9 - Chest pain, unspecifiedLEXISCAN STRESSTEST Lexiscan Myocardial perfusion study Indication: Chest pain Technique: The patient was brought in for a Lexiscan perfusion study on 04/19/2025 and was injected 0.4 mg of Lexiscan intravenously. Within a minute of this injection 25 mCi of sestamibi was given intravenously. Images were obtained using the SPECT gamma camera interlaced with the gating device. Images were obtained in supine position. Resting perfusion study was performed on 04/20/2025. Patient was administered 25 mCi of sestamibi intravenously at rest. Images were then obtained in supine position. Total DLP 83 mGy-cm. Images were processed with the software and compared side to side in short axis, horizontal long axis and vertical long axis views. Findings: Raw aquisition reviewed. The stress perfusion study showed decreased tracer uptake in the inferior wall. There is also adjacent subdiaphragmatic tracer uptake Some improvement with CT attenuation correction and hence could have components of diaphragmatic attenuation artifact. The gated study shows normal LV systolic function with calculated LVEF of 72%. LV cavity is normal in size. The gated study shows normal wall thickening and contraction of segments. Resting study shows no significant perfusion abnormality. Gating at rest reveals normal wall motion with ejection fraction at 57%. The findings are consistent with reversible inferior defect that could be from diaphragmatic attenuation artifact and adjacent subdiaphragmatic uptake. NM/NM cardiolite stress test Impression: 1. Myocardial perfusion imaging study shows reversible inferior defect, probably artifactual. Less likely to represent ischemia. 2. Gated LVEF is 72% during stress and 57% during rest. 3. Transient ischemic dilatation not present. EKG component of the test reported separately. Electronically signed by: Ken Scott MD 04/21/2025 11:18 AM EST Dictated By: Ken Scott MD Signed By: <Electronically signed by Ken Scott MD inOV> 04/21/25 1118 DD/ 0919 TD/TT: 04/20/25 1150 Property Insurance Inspector: us [facility] External Provider CV STRE SS PROCEDURES Final Result [facility] [address] [place] [phone] * XR Chest 1 View (04/08/2025 2:38 PM EST) Anatomical Region Laterality Modality Chest Radiographic Renée ging 04/08/2025 2:38 PM EST Narrative 04/08/2025 2:47 PM EST [address] [address] XRay Report Signed Patient: Geovanna Hobbs MR#: [id number] 73 : 1975 Acct:[id number] Age/Sex: 49 / F ADM Date: 04/08/25 Loc: DESIREE Attending Dr: Reinaldo Bowie NP Ordering Physician: Reinaldo Bowie NP Date of Service: 04/08/25 Procedure(s): XR chest 1V Accession Number(s): [id number] cc: Otilia Quiñones MD; Reinaldo Bowie NP [...] Jean MD in OV> 04/08/25 1444 DD/ TD/TT: 04/08/251437 Property Insurance Inspector: SAM Procedure Note Donotuseinterpreter, Image - 04/08/2025 [place] [address] XRay Report Signed Patient: Geovanna HobbsMR#: [id number] [birth year] : 1975Acct:[id number] Age/Sex: 49 / FADM Date: 04/08/25 Loc: NENAParveenMISSY Attending Dr: Reinaldo Bowie NP Ordering Physician: Reinaldo Bowie NP Date of Service: 04/08/25 Procedure(s): XR chest 1V Accession Number(s): [id number] cc: Otilia Quiñones MD; Reinaldo Bowie NP [...] 04/08/25 1444 DD/ 1438 TD/TT: 04/08/25 1438 Property Insurance Inspector: SAM [facility] External Provider IMG XR PROCEDURES Final Result * (ABNORMAL) NT-proBNP (04/08/2025 2:22 PM EST) Only the most recent of3 resultswithin the time period is included. NT-proBNP 997.0(H) <300 pg/mL [facility] Comment:Reference Range:Age Group (years) NT-proBNP (pg/ml) InterpretationAll <300 Negative: HF unlikelyFor patients presenting to the ED with clinical suspicion ofnew onset or worsening HF, see below:18 to <50 >299.9 to <450.0 Grayzone: Mgpuuswd09 to 75 >299.9 to <900.0 other causes of>75 >299.9 to <1800.0 NT-proBNP wutkzqzyy29 to <50 >449.9 Positive: HF -15 >899.9>75 >1799.9Note: Elevated NT-proBNP levels should be interpreted inthe context of other clinical information. 04/08/2025 2:22 PM EST 04/08/2025 2:22 PM EST Generic External Data Provider LAB BLOOD ORDERAB LES Final Result [facility] [address] [place] [phone] * (ABNORMAL) Basic Metabolic Panel (04/08/2025 2:22 PM EST) Sodium 141 135 - 145 mmol/L [facility] Potassium 4.3 3.3 - 5.1 mmol/L [facility] Chloride 108 96 - 108 mmol/L [facility] Carbon Dioxide 28 22 - 29 mmol/L [facility] Anion Gap 9(L) 12 - 20 [facility] Urea Nitrogen (BUN) 14 9 - 16 mg/dL [facility] Creatinine, Serum 0.58 0.5 - 1.4 mg/dL [facility] Estimated Glomerular Filt Rate >60 [facility] Comment:Chronic Kidney Disea se: Estimated GFR < 60 mL/min/1.58m9Assxru Kidney Disease: Estimated GFR < 15 mL/min/1.73m2 Glucose 122(H) 60 - 115 mg/dL [facility] Calcium 9.6 8.4 - 10.2 mg/dL [facility] 04/08/2025 2:22 PM EST 04/08/2025 2:22 PM EST us Generic External Data Provider LAB BLOOD ORDERAB LES Final Result Performing Organization Address City/State/[facility] Co de Phone Number [facility] [address] [place] [phone] * XR Chest 2 Views (03/27/2025 2:14 PM EDT) Anatomical Region Laterality Modality Chest Radiographic Renée ging 03/27/2025 2:14 PM EDT Narrative 03/27/2025 2:15 PM EDT [place] [address] XRay Report Signed Patient: Geovanna Hobbs MR#: [id number] [birth year] : 1975 Acct:[id number] Age/Sex: 49 / F ADM Date: 03/27/25 Loc: HO.ED Attending Dr: Ordering Physician: Augusta Hill NP Date of Service: 03/27/25 Procedure(s): XR chest 2V Accession Number(s): [id number] cc: Otilia Quiñones MD; Augusta Hill NP [...] signed by Jeff Hilario MD in OV> 03/27/251414 DD/ 13 TD/TT: 03/27/251413 Property Insurance Inspector: Procedure Note Addison, Image - 03/27/[address] [address] XRay Report Signed Patient: Geovanna HobbsMR#: [id number] 73 : 1975Acct:[id number] Age/Sex: 49 / FADM Date: 03/27/25 Loc: .ED Attending Dr: Ordering Physician: Augusta Hill NP Date of Service: 03/27/25 Procedure(s): XR chest 2V Accession Number(s): [id number] cc: Otilia Quiñones MD; Augusta Hill NP [...] signed by Jeff Hilario MD in OV> 03/27/251414 DD/ 13 TD/TT: 03/27/251413 Property Insurance Inspector: [facility] External Provider IMG XR PROCEDURES Edited Result - Final * POCT Rapid Influenza B FISCHER ID NOW (03/27/2025 9:55 AM EDT) Influenza B Negative Negative, Indeterminate [facility] QC Media Lot # [id number] [facility] Lot# Expiration Date ,027 [facility] Swab 03/27/2025 9:55 AM EDT Constance Chavez MD POINT OF CARE EARNESTINE T ENTER/EDIT ORDERABLES Final Result Performing Organization Address [facility]/ZIP Co de Phone Number [facility] [address] [place] [phone] * POCT Rapid Influenza A FISCHER ID NOW (03/27/2025 9:54 AM EDT) Influenza A Negative Negative, Indeterminate [facility] QC Media Lot # [id number] [facility] Lot# Expiration Date [facility] Swab 03/27/2025 9:54 AM EDT Constance Chavez MD POINT OF CARE EARNESTINE T ENTER/EDIT ORDERABLES Final Result Performing Organization Address [facility] Co de Phone Number [facility] [address] [place] [phone] * POCT Rapid Covid-19 FISCHER ID NOW (03/27/2025 9:54 AM EDT) [facility] Coronavirus Antigen PCR Negative Negative, Indeterminate, None Detected, Invalid, Specimen unsatisfactory for evaluation, Weakly Positive, 2+ QC Media Lot # [id number] Lot# Expiration Date Swab 03/27/2025 9:54 AM EDT Constance Chavez MD POINT OF CARE EARNESTINE T ENTER/EDIT ORDERABLES Final Result * POCT Rapid Strep A FISCHER ID NOW (03/27/2025 9:53 AM EDT) [facility] Rapid Strep A Screen Negative Negative, None Detected QC Media Lot # [id number] Lot# Expiration Date Swab 03/27/2025 9:53 AM EDT Constance Chavez MD POINT OF CARE EARNESTINE T ENTER/EDIT ORDERABLES Final Result * High Sensitivity Troponin I (03/22/2025 12:44 PM EDT) [facility] TROPONIN I HIGH SENSITIVITY 6.5 <3.5 - 17.0 ng/L [facility] Comment:The Fischer high sens itivity Troponin-I results should beused in conjunction with other diagnostic information suchas ECG, clinical observations and information, and patientsymptoms to aid in the diagnosis of SD. 03/22/2025 12:4 4 PM EDT 03/22/2025 12:46 PM EDT Generic External Data Provider LAB BLOOD ORDERAB LES Final Result Performing Organization Address [facility]/ZIP Co de Phone Number [facility] [address] [place] [phone] * (ABNORMAL) TSH with Reflex to Free T4 (03/22/2025 12:44 PM EDT) Only the most recent of2 resultswithin the time period is included. [facility] TSH reflex Free T4 <0.01(L) 0.32 - 4.0 uIU/mL [facility] 03/22/2025 12:4 4 PM EDT 03/22/2025 12:46 PM EDT Generic External Data Provider LAB BLOOD ORDERAB LES Final Result Performing Organization Address [facility] Co de Phone Number [facility] [address] [place] [phone] * (ABNORMAL) CBC auto differential (03/22/2025 12:44 PM EDT) Only the most recent of3 resultswithin the time period is included. [facility] White Blood Count 4.0(L) 4.8 - 10.8 X10*3/uL [facility] Red Blood Count 4.86 4.20 - 5.50 X10*6/uL [facility] Hemoglobin 11.8(L) 12.0 - 16.0 g/dl [facility] Hematocrit 37.1 37.0 - 47.0 % [facility] Mean Corpuscular Volume 76.3(L) 80.0 - 98.0 fL [facility] Mean Corpuscular Hemoglobin 24.3(L) 27.0 - 33.0 pg [facility] Mean Corpuscular HGB Conc 31.8 31.0 - 35.0 g/dl [facility] Red Cell Distribution Width 12.4 11.0 - 16.0 % [facility] Platelet Count 202 160 - 400 X10*3/uL [facility] Mean Platelet Volume 11.8 9.4 - 12.3 fL [facility] Neutrophils Percent Auto 61.3 45 - 73 % [facility] Imm Gran Pct Auto 0.2 0.0 - 0.4 % [facility] Lymphocytes Percent Auto 27.0 20 - 40 % [facility] Monocytes Percent Auto 10.1 2 - 11 % [facility] Eosinophils Percent Auto 1.2 0 - 4 % [facility] Basophils Percent Auto 0.2 0 - 2 % [facility] NRBC Pct Auto 0.0 0.0 - 0.2 /100WBC [facility] Neutrophils Absolute Auto 2.5 2.0 - 8.3 x10*3/uL [facility] Imm Gran Abs Auto 0.01 0.00 - 0.03 X10*3/uL [facility] Lymphocytes Absolute Auto 1.1(L) 1.2 - 4.9 X10*3/uL [facility] Monocytes Absolute Auto 0.4 0.1 - 1.2 X10*3/uL [facility] Eosinophils Absolute Auto 0.1 0.0 - 0.4 X10*3/uL [facility] Basophils Absolute Auto 0.0 0.0 - 0.2 X10*3/uL [facility] NRBC Abs Auto 0.000 0.0 - 0.012 X10*3/uL [facility] 03/22/2025 12:4 4 PM EDT 03/22/2025 12:46 PM EDT us Generic External Data Provider LAB BLOOD ORDERAB LES Final Result Performing Organization Address City/[facility]/ZIP Co de Phone Number [facility] [address] [place] [phone] * (ABNORMAL) TSI (Thyroid Stimulating Immunoglobulin) (03/22/2025 12:44 PM EDT) Thyroid Stimulating Immunoglobulin 237(A) <140 % baseline [facility] Comment: Thyroid stimulating immunoglobulins (TSI) can [...] hCG concentrationfalls below 40,625 mIU/mL (usually after mtqcjqxlyyoje52-azalt gestation).The analytical performance characteristics of thisassay have been determined [facility], [place], [place]. The modificationshave not been cleared or approved by the FDA. Thisassay has been validated pursuant to the CLIAregulations and is used for clinical purposes.THIS TEST WAS PERFORMED AT:[employer]/[facility]FIJBEGORD[address] [place] [address]NNRUBXYJAZMYNE BONNER MD,PHD 03/22/2025 12:4 4 PM EDT 03/22/2025 12:46 PM EDT us Generic External Data Provider LAB BLOOD ORDERAB LES Final Result Performing Organization Address City/[facility]/ZIP Co de Phone Number [facility] [address] [place] [phone] * (ABNORMAL) TRAb (TSH Receptor Binding Antibody) (03/22/2025 12:44 PM EDT) Pathologist [facility] TRAb (TSH Receptor Binding Antibody) 21.44(A) <=2.00 IU/L [facility] Comment:This test was perfor med using the TRAb Antibody ELISAmethod which is standardized against the [facility] centerInternational Standard 90/672 and is reported inInternational Units (IU/L). The reference rangereported was established specifically for this testmethod.THIS TEST WAS PERFORMED AT:[employer]/[facility] [id number] [place] [address]FPUVSLUJAZMYNE BONNER MD,PHD 03/22/2025 12:4 4 PM EDT 03/22/2025 12:46 PM EDT us Generic External Data Provider LAB BLOOD ORDERAB LES Final Result [facility] [address] [place] [phone] * (ABNORMAL) Thyroglobulin Panel (03/22/2025 12:44 PM EDT) [facility] Thyroglobulin, LC/MS/MS 14.6 ng/mL [facility] Comment: Reference Range: Intact Thyroid 2.8-40.9 [...] the thyroglobulin by tandem massspectrometry (test code 57646 - Thyroglobulin,LC/MS/MS; or panel test code 61612 - Thyroid Cancer(Thyroglobulin) Monitoring) test is recommendedbecause it has no interference from autoantibodies.For additional information, please refer [email or web address](This link is being provided for informational/educational purposes only.)THIS TEST WAS PERFORMED AT:[facility] [place] [id number] NASSAR MD Thyroglobulin Antibodies 2(A) < or = 1 IU/mL [facility] 03/22/2025 12:4 4 PM EDT 03/22/2025 12:46 PM EDT us Generic External Data Provider LAB BLOOD ORDERAB LES Final Result Performing Organization Address [facility] Co de Phone Number [facility] [address] [place] [address] [phone] * hCG, Total, Quantitative (03/22/2025 12:44 PM EDT) HCG Quantitative <2 mIU/mL [facility] Comment:Weeks post LMP Appr oximate hCG(Last Menstrual Period) Range (mIU/ml)3 - 4 weeks 9 - 1304 - 5 weeks 75 - 2,6005 - 6 weeks 850 - 20,8006 - 7 weeks 4000 - 100,2007 - 12 weeks 11,500 - 289,38356 - 16 weeks 18,300 - 137,24650 - 29 weeks (2nd trimester) 1,400 - 53,71739 - 41 weeks (3rd trimester) 940 - [...] ORDERAB LES Final Result Performing Organization Address City/[facility]/ZIP Co de Phone Number [facility] [address] [place] [address] [phone] * (ABNORMAL) T4, Free (03/22/2025 12:44 PM EDT) Only the most recent of2 resultswithin the time period is included. Free T4 (Free Thyroxine) 2.85(H) 0.71 - 1.85 ng/dL [facility] 03/22/2025 12:4 4 PM EDT 03/22/2025 12:46 PM EDT us Generic External Data Provider LAB BLOOD ORDERAB LES Final Result [facility] [address] [place] [address] [phone] * (ABNORMAL) Comprehensive Metabolic Panel (03/22/2025 12:44 PM EDT) Only the most recent of2 resultswithin the time period is included. Pathologist [facility] Sodium 141 135 - 145 mmol/L [facility] Potassium 3.7 3.3 - 5.1 mmol/L [facility] Chloride 106 96 - 108 mmol/L [facility] Carbon Dioxide 27 22 - 29 mmol/L [facility] Anion Gap 12 12 - 20 [facility] Urea Nitrogen (BUN) 12 9 - 16 mg/dL [facility] Creatinine, Serum 0.50 0.5 - 1.4 mg/dL [facility] Creatinine Clr Calc Pharmacy 129.5 [facility] Comment:Provided height and weight: 162.56 cm,67.1 kg.eGFR (calculated from the MDRD study equation) and eCrCl(calculated from the Cockcroft-Gault equation) are based ondifferent parameters and may not yield comparable results.If eCrCl result is absurd, please check patient'sheight/weight. Estimated Glomerular Filt Rate >60 [facility] Comment:Chronic Kidney Disea se: Estimated GFR < 60 mL/min/1.72p0Oxzbxm Kidney Disease: Estimated GFR < 15 mL/min/1.73m2 Glucose 136(H) 60 - 115 mg/dL [facility] Calcium 9.6 8.4 - 10.2 mg/dL [facility] Bilirubin, Total 0.6 0.0 - 1.0 mg/dL [facility] Aspartate Amino Transferase 28 5 - 31 U/L [facility] Alanine Aminotransferase 31 0 - 31 U/L [facility] Total Protein 6.4(L) 6.5 - 8.0 g/dL [facility] Albumin Level 3.7 3.5 - 5.0 g/dL [facility] Alkaline Phosphatase 76 39 - 117 U/L [facility] 03/22/2025 12:4 4 PM EDT 03/22/2025 12:46 PM EDT us Generic External Data Provider LAB BLOOD ORDERAB LES Final Result Performing Organization Address [facility] de Phone Number [facility] [address] [place] [phone] * Iron And Total Iron Binding Capacity (03/19/2025 1:48 PM EDT) Pathologist [facility] Iron 35 30 - 160 mcg/dL [facility] Total Iron Binding Capacity 241 228 - 428 mcg/dL [facility] Percent Iron Saturation 15 15 - 50 % [facility] Unsaturated Iron Binding 206 ug/dL [facility] Blood Venous blood specimen / Unknown 03/19/2025 1:48 PM EDT 03/19/2025 2:38 PM EDT us Henrique Whittaker MD LAB BLOOD ORDERABLES Final Result Performing Organization Address [facility] Co de Phone Number [facility] [address] [place] [phone] * Hepatitis B Surface Antibody, Qualitative (03/19/2025 1:48 PM EDT) ~Hepatitis B Surface Antibody NONREACTIVE Nonreactive [facility] Comment:Nonreactive: < 8.00 mIU/mL Blood Venous blood specimen / Unknown 03/19/2025 1:48 PM EDT 03/19/2025 2:38 PM EDT us Henrique Whittaker MD LAB BLOOD ORDERABLES Final Result Performing Organization Address [facility] Co de Phone Number [facility] [address] [place] [phone] * (ABNORMAL) Prothrombin Time-INR (03/19/2025 1:48 PM EDT) Prothrombin Time 12.6(H) 10.9 - 12.4 SEC [facility] INTERNATIONAL NORM RATIO 1.1 0.9 - 1.1 [facility] Comment:INTERNATIONAL NORMAL IZED RATIO (INR) REFERENCE [...] BLOOD ORDERABLES Final Result Performing Organization Address [facility] Co de Phone Number [facility] [address] [place] [phone] * (ABNORMAL) Reticulocyte Count (03/19/2025 1:48 PM EDT) Reticulocytes Absolute 0.043 0.026 - 0.095 X10*6/uL [facility] Immature Retic Fraction 6.5 3.0 - 15.9 % [facility] Retic HGB Equivalent 26.2(L) 30.0 - 35.0 pg [facility] Reticulocyte Percent 1.0 0.5 - 1.8 % [facility] Blood Venous blood specimen / Unknown 03/19/2025 1:48 PM EDT 03/19/2025 2:38 PM EDT us Henrique Whittaker MD LAB BLOOD ORDERABLES Final Result Performing Organization Address [facility]/ZIP Co de Phone Number [facility] [address] [place] [phone] * Ferritin (03/19/2025 1:48 PM EDT) Ferritin 125 10 - 250 ng/mL [facility] Blood Venous blood specimen / Unknown 03/19/2025 1:48 PM EDT 03/19/2025 2:38 PM EDT us Henrique Whittaker MD LAB BLOOD ORDERABLES Final Result Performing Organization Address [facility] de Phone Number [facility] [address] [place] [phone] * Albumin, Random Urine W/Creatinine (03/11/2025 1:50 PM EDT) Creatinine, Urine 126.46 mg/dL [facility] Microalbumin Urine 6.0 mg/L [facility] Microalbum Creatinine Ratio Ur 4.7 <30 ug/mg cr [facility] Comment:Albumin/Creatinine R atio Reference Ranges: Normal: < 30 ug/mg creatinine Microalbuminuria: 30 - 300 ug/mg creatinineClinical Albuminuria: > 300 ug/mg creatinine Urine (Urine, Random) 03/11/2025 1:50 PM EDT 03/11/2025 5:48 PM EDT Henrique Whittaker MD LAB URINE ORDERABLES Final Result Performing Organization Address [facility] Co de Phone Number [facility] [address] [place] [phone] * T-SPOT??.TB (03/11/2025 1:46 PM EDT) T Spot TB Negative Negative [facility] Comment:A negative test resu lt does [...] as aquantitative test. TS PANEL A 0 [facility] TS PANEL B 0 [facility] Negative Control Passed [facility] Positive Control Passed [facility] Comment:For additional infor baylee, please refer tohttp://education.[employer]/faq/VHV041(This link is being provided for informational/educational purposes only.)THIS TEST WAS PERFORMED AT:[facility] [place] [address]OSRMTOQJAZMYNE BONNER MD,PHD 03/11/2025 1:46 PM EDT 03/11/2025 2:26 PM EDT us Henrique Whittaker MD LAB BLOOD ORDERABLES Final Result [facility] [address] [place] [phone] * Helicobacter pylori??Antigen, EIA, Stool (03/11/2025 9:30 AM EDT) H pylori Ag Stool SEE NOTE [facility] Comment:HELICOBACTER PYLORI AG, EIA, STOOL Micro Number: [id number] Test Status: Final Specimen Source: Stool Specimen Quality: Adequate H.pylori Ag: Not Detected Antimicrobials, proton pump inhibitors, and bismuth preparations inhibit H. pylori and ingestion up to two weeks prior to testing may cause false negative results. If clinically indicated the test should be repeated on a new specimen obtained two weeks after discontinuing treatment. Reference Range: Not DetectedTHIS TEST WAS PERFORMED AT:[facility] [place] [id number] NASSAR MD Stool Rectal contents / Unknown 03/11/2025 9:30 AM EDT 03/11/2025 2:36 PM EDT us Otilia Quiñones MD LAB BODY FLUIDS AND STOOLS OR DERABLES Final Result [facility] [address] [place] [phone] * POCT Rapid Strep A OSOM [...] PM EDT Narrative 03/05/2025 2:05 PM EDT [address] [address] [address] Scan Report Signed Patient: Geovanna Hobbs MR#: [id number] 73 : 1975 Acct:[id number] Age/Sex: 49 / F ADM Date: 03/05/25 Loc: HO.CT Attending Dr: Otilia Quiñones MD Ordering Physician: Otilia Quiñones MD Date of Service: 03/05/25 Procedure(s): CT chest w IV con Accession Number(s): [id number] cc: Otilia Quiñones MD Report Number: [id number]: Total DLP = 90.00 mGy-cm Reason for [...] 03/05/25 1402 DD/ 1332 TD/TT: 03/05/25 1345 Property Insurance Inspector: Procedure Note Donotuseinterpreter, Image - 03/05/[address] [place] [address] [address] Scan Report Signed Patient: Geovanna HobbsMR#: [id number] 73 : 1975Acct:[id number] Age/Sex: 49 / FADM Date: 03/05/25 Loc: HO.CT Attending Dr: Otilia Quiñones MD Ordering Physician: Otilia Quiñones MD Date of Service: 03/05/25 Procedure(s): CT chest w IV con Accession Number(s): [id number] cc: Otilia Quiñones MD Report Number: [id number]: Total DLP = 90.00 mGy-cm Reason for [...] 03/05/25 1402 DD/ 1332 TD/TT: 03/05/25 1345 Property Insurance Inspector: us Otilia Quiñones MD IMG CT PROCEDURES Final Resul t * CT Soft Tissue Neck w/ Contrast (02/17/2025 12:31 PM EDT) Anatomical Region Laterality Modality Head, Neck Computed Tomogra phy 02/17/2025 12:3 1 PM EDT Narrative 02/17/2025 1:12 PM EDT [place] [address] [address] Scan Report Signed Patient: Geovanna Hobbs MR#: [id number] 73 : 1975 Acct:[id number] Age/Sex: 49 / F ADM Date: 02/17/25 Loc: HO.ED Attending Dr: Ordering Physician: Tin Leger MD Date of Service: 02/17/25 Procedure(s): CT soft tissue neck w IV con Accession Number(s): [id number] cc: Otilia Quiñones MD; Tin Leger MD Report Number: [id number]: Total DLP = 406.00 mGy-cm Reason for [...] Retropharangeal Space: -Normal. Parapharyngeal Fat Planes: -Normal. Acute Care Clinical Nurse Specialist Spaces: -Normal. Anterior Cervical Space: -Normal. Imaged [...] 02/17/25 1309 DD/ 1231 TD/TT: 02/17/25 1250 Property Insurance Inspector: Procedure Note Donotuseinterpreter, Image - 02/17/[address] [address] [address] Scan Report Signed Patient: Geovanna HobbsMR#: [id number] 73 : 1975Acct:[id number] Age/Sex: 49 / FADM Date: 02/17/25 Loc: HO.ED Attending Dr: Ordering Physician: Tin Leger MD Date of Service: 02/17/25 Procedure(s): CT soft tissue neck w IV con Accession Number(s): [id number] cc: Otilia Quiñones MD; Tin Leger MD Report Number: [id number]: Total DLP = 406.00 mGy-cm Reason for [...] Retropharangeal Space: -Normal. Parapharyngeal Fat Planes: -Normal. Acute Care Clinical Nurse Specialist Spaces: -Normal. Anterior Cervical Space: -Normal. Imaged [...] 02/17/25 1309 DD/ 1231 TD/TT: 02/17/25 1250 Property Insurance Inspector: [facility] External Provider IMG CT PROCEDURES Edited Result - Final * Sjogren's Antibodies (SS-A,SS-B) (02/10/2025 12:48 PM EDT) Sjogren's Antibody (SS-A) <1.0 NEG <1.0 NEG AI [facility] Sjogren's Antibody (SS-B) <1.0 NEG <1.0 NEG [facility] Comment:THIS TEST WAS PERFOR MED AT:[facility] [address] [id number] NASSAR MD 02/10/2025 12:4 8 PM EDT 02/10/2025 2:17 PM EDT Otilia Quiñones MD LAB BLOOD ORDERABLES Final Re sult [facility] [address] [place] [phone] [phone] * Culture, Throat (02/10/2025 11:55 AM EDT) Throat Structure of anterior region of neck / Unknown 02/10/2025 11:55 AM EDT 02/10/2025 2:18 PM EDT Comment:Throat Narrative [facility] - 02/12/2025 11:46 AM EDT Throat Culture No Group A Beta-hemolytic Streptococci isolated. Specimen Source: Throat Otilia Quiñones MD LAB MICROBIOLOGY - GENERAL OR DERABLES Final Result Performing Organization Address [facility] Co de Phone Number [facility] [address] [place] [phone] * Hepatitis C Antibody with Reflex to HCV, RNA, Quantitative, Real-Time PCR (10/15/2024 1:34 PM EDT) Pathologist [facility] Hepatitis C Antibody Nonreactive Nonreactive [facility] Comment:Antibodies to HCV no t detected; does not exclude early acuteHCV infection. Blood Venous blood specimen / Unknown 10/15/2024 1:34 PM EDT 10/15/2024 2:19 PM EDT Otilia Quiñones MD LAB BLOOD ORDERABLES Final Re sult Performing Organization Address [facility] Co de Phone Number [facility] [address] [place] [phone] * HIV-1/2 Antigen and Antibodies, Fourth Generation, with Reflexes (10/15/2024 1:34 PM EDT) Pathologist [facility] HIV AB/AG Nonreactive Nonreactive [facility] Comment:HIV-1 p24 Ag and/or HIV-1/HIV-2 Ab not detected.A test result that is nonreactive does not exclude thepossibility of exposure to or infection with HIV-1 and/orHIV-2. Nonreactive results in this assay for individualswith prior exposure to HIV-1 and/or HIV-2 may be due toantigen and antibody levels that are below the limit ofdetection of this assay.The [employer]omat HIV Ag/Ab Combo assay result andsupplemental assay results should be interpreted inconjunction with the patient's clinical presentation,history and other laboratory results. If the results areinconsistent with clinical evidence, additional testing issuggested to confirm the result. Blood Venous blood specimen / Unknown 10/15/2024 1:34 PM EDT 10/15/2024 2:19 PM EDT us Otilia Quiñones MD LAB BLOOD ORDERABLES Final Re sult [facility] [address] [place] [address] [phone] * BI Mammogram Diagnostic Tomosynthesis Bilateral (06/17/2024 11:18 AM EST) Anatomical Region Laterality Modality Breast Bilateral Mammography 06/17/2024 11:1 8 AM EST Narrative 06/17/2024 1:06 PM EST [facility] [address] [place] [address] Mammography Report Signed Patient: Geovanna Hobbs MR#: [id number] 73 : 1975 Acct:[id number] Age/Sex: 48 / F ADM Date: 06/17/24 Loc: SUBHASH Attending Dr: Yunier Bentley MD Ordering Physician: Yunier Bentley MD Results: 2Beni gn Findings Date of Service: 06/17/24 Follow Up: 1 Year From Orig inal Mammogram Procedure(s): MM tomosynthesis diagnostic BI Accession Number(s): [id number] cc: Otilia Quiñones MD; Yunier Bentley MD [...] by: Criselda Jimenez DO 06/17/2024 01:03 PM [facility] Dictated By: Cirselda Jimenez DO Signed By: <Electronically signed by Criselda Jimenez DO in OV> 06/17/24 1303 DD/ 1118 TD/TT: 06/17/24 1146 Property Insurance Inspector: Procedure Note Donotuseinterpreter, Image - 06/17/2024 [facility] [address] [place] [address] Mammography Report Signed Patient: Geovanna HobbsMR#: [id number] 73 : 1975Acct:[id number] Age/Sex: 48 / FADM Date: 06/17/24 Loc: HO.MAMMO Attending Dr: Yunier Bentley MD Ordering Physician: Yunier Bentley MDResults: 2Beni gn Findings Date of Service: 06/17/24Follow Up: 1 Year From [facility] Mammogram Procedure(s): MM tomosynthesis diagnostic BI Accession Number(s): [id number] cc: Otilia Quiñones MD; Yunier Bentley MD [...] 06/17/24 1303 DD/ 1118 TD/TT: 06/17/24 1146 Property Insurance Inspector: [facility] External Provider IMG BI PROCEDURES Final Result * THINPREP PAP (08/02/2020 9:01 AM EST) Clinical Information: None given [facility] COMMENT SEE COMMENT [facility] [...] along with historic and current clinical information. Brass Cleaner : SEE COMMENT [facility] Comment: BK,CT(ASCP) CT screening location: [address] Interpretation/R esult: Negative for intraepithelial lesion or malignancy. [facility] LMP: 06/03/2020 [facility] Prev. BX: NONE GIVEN [facility] Prev. PAP: NONE GIVEN [facility] Review Brass Cleaner : SEE COMMENT [facility] Comment: SL, CT(ASCP) CT screening location: [address] [address] SOURCE: None given [facility] Statement Of Adequacy: SEE COMMENT [facility] Comment: Satisfactory for evaluation. Endocervical/transformation zone component absent. 08/02/2020 9:01 AM EST Thania Alvarez CNM LAB PATHOLOGY ORDERABLES Final Result Performing Organization Address [facility] de Phone Number [facility] [address] * HPV mRNA E6/E7 (08/02/2020 9:01 AM EST) HPV nRNA E6/E7 Not Detected Not Detected [facility] Comment: Methodology: Ground Wood Supervisor-Mediated Amplification This assay detects E6/E7 viral messenger RNA (mRNA) from 14 high-risk HPV types (16,18,31,33,35,39,45,51,52,56,58,59,66,68). The analytical performance characteristics of this assay have been determined by [employer]. The modifications have not been cleared or approved by the FDA. This assay has been validated pursuant to the CLIA regulations and is used for clinical purposes. For additional information, please refer to http://education.[employer]Audio/faq/AJK661c4 (This link if provided for information/ educational purposes only.) 08/02/2020 9:01 AM EST Thania HORN LAB BLOOD ORDERABLES Kelly l Result Performing Organization Address [facility] de Phone Number [facility] [address] from Last 3 Months or Most Recently Relevant to Health Maintenance Insurance [facility] C[facility] * Guarantor: Faby Geovanna Account Type Relation to Patient Date of Phone Billing Address Personal/Family Self [address] Care Teams Book Or Script Editor Relationship Specialty Start Date End Date Otilia Quiñones MD [address] [place] [address] SANDOVAL Barraza PCP - General Family Medicine 09/15/13
--- OUTSIDE RECORDS SUMMARY | 2025-04-23 10:51 | XMS_ITS | Encounter Summary ---
Author Organization [employer] Address [address] [facility] 7 [place] [address] Care Team Providers Care Diamond Cleaver Name Role Phone Otilia Quiñones MD Primary Care Provider [phone] Reason for Referral * Imaging (Routine) - Authorized Specialty Diagnoses / Procedures Referred By Contac t Referred To Contact Radiology Diagnoses Hyperthyroidism Procedures NM THYROID W UPTAKE AND SCAN Henrique Whittaker MD [address] [place] [address] Phone: tel: fax: [facility] Referral ID Status Reason Start Date Expiration Date V isits Requested Visits Authorized [id number] Authorized 04/22/2025 04/22/2026 1 1 Encounter Details Date Type Department Care Team (Late st Contact Info) Description 04/19/[address] [facility] External Provider, [facility] Hyperthyroidism (Primary Dx) Social History Tobacco Use Types [...] as of this encounter Miscellaneous Notes * Addendum Note - Lucía Ronquillo RN - 04/19/2025 11:59 PM ESTAddended by: LUCÍA RONQUILLO on: 04/22/2025 09:22 AM Modules accepted: Orders documented in this encounter Plan of Treatment Upcoming Encounters Date Type Department Care Team ([facility] st Contact Info) Description 05/05/2025 11:00 AM EST Office Visit [facility] [address] [place] [address] Otilia Quiñones MD [address] [place] [address] Scheduled Orders Name Type Priority Associated Diagnoses Orde r Schedule NM THYROID W UPTAKE AND SCAN Imaging Routine Hyperthyroidism Expected: 04/22/2025, Expires: 04/22/2026 documented as of this encounter Procedures Procedure Name Priority Date/Time Associated Diagnosis Comments STRESS TEST WITH MYOCARDIAL PERFUSION Routine 04/19/2025 9:19 AM EST documented in this encounter Results * Stress test with myocardial perfusion (04/19/2025 9:19 AM EST) 04/19/2025 9:19 AM EST Narrative [facility] - 04/21/2025 11:21 AM EST [place] [address] Nuclear Medicine Report Signed Patient: Geovanna Hobbs MR#: [id number] 73 : 1975 Acct:[id number] Age/Sex: 49 / F ADM Date: 04/19/25 Loc: [facility] Attending Dr: Reinaldo Bowie NP Ordering Physician: Reinaldo Bowie NP Date of Service: 04/19/25 Procedure(s): NM cardiolite stress test Accession Number(s): [id number] cc: Otilia Quiñones MD; Reinaldo Bowei NP Reason for Exam: R07.9 - Chest [...] by: Ken Scott MD 04/21/2025 11:18 AM [facility] Dictated By: Ken Scott MD Signed By: <Electronically signed by Ken Scott MD in OV> 04/21/25 1118 DD/ 0919 TD/TT: 04/20/25 1150 Research Physiologist: Procedure Note Donotuseinterpreter, Image - 04/21/2025 [place] [address] Nuclear Medicine Report Signed Patient: Geovanna HobbsMR#: [id number] 73 : 1975Acct:[id number] Age/Sex: 49 / FADM Date: 04/19/25 Loc: [facility] Attending Dr: Reinaldo Bowie NP Ordering Physician: Reinaldo Bowie NP Date of Service: 04/19/25 Procedure(s): NM cardiolite stress test Accession Number(s): [id number] cc: Otilia Quiñones MD; Reinaldo Bowie NP [...] 04/21/25 1118 DD/ 0919 TD/TT: 04/20/25 1150 Research Physiologist: us [facility] External Provider CV STRE SS PROCEDURES Final Result [facility] [address] [place] [address] documented in this encounter Visit Diagnoses Diagnosis Hyperthyroidism- Primary Thyrotoxicosis without mention of goiter or other cause, without mention of thyrotoxic crisis or storm documented in this encounter Additional Health Concerns Assessment Noted Time PHQ-9 Depression Total Score: 0 07/03/19 24 10:45 AM EST documented as of this encounter Care Teams Diamond Cleaver Relationship Specialty Start Date End Date Otilia Quiñones MD [address] [place] [phone] PCP - General Family Medicine 09/15/13 documented as of this encounter
--- OUTSIDE RECORDS SUMMARY | 2025-04-23 10:51 | XMS_ITS | Encounter Summary ---
Author Organization [employer] Address [address] [facility] 7 [place] [address] Care Team Providers Care Supervisor Dried Yeast Name Role Phone Otilia Quiñones MD Primary Care Provider Reason for Visit * Reason Onset Date Comments [facility] Request for Updated NM Order 04/22/2025 Encounter Details Date Type Department Care Team ([facility] st Contact Info) Description 04/22/2025 Telephone [facility] MEDICINE [address] [place] [address] Otilia Quiñones MD 505 [facility] [place] [phone] [facility] Request for Updated NM Order Social History Tobacco Use Types Packs/Day Years [...] encounter Miscellaneous Notes * Telephone Encounter - Lucía Bell RN - 04/22/2025 9:29 AM EST TC received from [place] in [place], the thyroid scan order in chart needs correction to: [place] Thyroid w/ Uptake and Scan. This was completed and faxed to [phone] at her request as patient was in room waiting. documented in this encounter Plan of Treatment Upcoming Encounters Date Type Department Care Team (Late st Contact Info) Description 05/05/2025 11:00 AM EST Office Visit [facility] MED & PEDS [address] [place] [address] Otilia Quiñones MD 505 [place] [address] documented as of this encounter Visit Diagnoses Not on filedocumented in this encounter Additional Health Concerns Assessment Noted Time PHQ-9 Depression Total Score: 0 07/03/19 24 10:45 AM EST documented as of this encounter Care Teams Supervisor Dried Yeast Relationship Specialty Start Date End Date Otilia Quiñones MD [address] [place] [address] PCP - General Family Medicine 09/15/13 documented as of this encounter
--- OUTSIDE RECORDS SUMMARY | 2025-04-23 10:51 | XMS_ITS | Encounter Summary ---
Author Organization [employer] Address [address] [place] [address] 7t [place] [address] Care Team Providers Care Spray Operator Name Role Phone Otliia Quiñones MD Primary Care Provider [phone] Encounter Details Date Type Department Care Team ([facility] Contact Info) Description 02/17/2025 Results Follow-Up [facility] CHC MED & PEDS [address] [place], [place] [phone] Otilia Quiñones MD [address] [place] [address] CT Soft Tissue Neck w/ Contrast Social [...] 05/05/2025 11:00 AM EST Office Visit [facility] MED & PEDS [address] [place] [address] Otilia Quiñones MD [address] [place] [address] documented as of this encounter Visit Diagnoses Not on filedocumented in this encounter Additional Health Concerns Assessment Noted Time PHQ-9 Depression Total Score: 0 07/03/19 24 10:45 AM EST documented as of this encounter Care Teams Spray Operator Relationship Specialty Start Date End Date Otilia Quiñones MD [address] [place] [address] PCP - General Family Medicine 09/15/13 documented as of this encounter
--- OUTSIDE RECORDS SUMMARY | 2025-04-23 10:51 | XMS_ITS | Encounter Summary ---
Author Organization [employer] Address [address] [place] [address] 7 [place] [address] Care Team Providers Care Form Maker Name Role Phone Otilia Quiñones MD Primary Care Provider [phone] Encounter Details Date Type Department Care Team (Latest Contact Info) Description 08/25/[address] [facility] CONVERSIONS Dental, Provider, DDS Social History [...] Description 05/05/2025 11:00 AM EST Office Visit [facility] CHC MED & PEDS [address] [place] [address] Otilia Quiñones MD 505 [place] [address] documented as of this encounter Visit Diagnoses Not on filedocumented in this encounter Care Teams Form Maker Relationship Specialty Start Date End Date Otilia Quiñones MD 505 [place] [address] PCP - General Family Medicine 09/15/13 documented as of this encounter
--- OUTSIDE RECORDS SUMMARY | 2025-04-23 10:51 | XMS_ITS | Encounter Summary ---
Author Organization [employer] Address [address] [facility] 7t [place] [address] Care Team Providers Care Vacuum Evaporation Operator Name Role Phone Otilia Quiñones MD Primary Care Provider [phone] Encounter Details Date Type Department Care Team (Late st Contact Info) Description 03/28/2023 Abstract [facility] MEDICINE [address] [place] [address] Otilia Quiñones MD [address] [facility] [address] [place], [place] [phone] Social History Tobacco Use Types Packs/Day Years [...] ([facility] st Contact Info) Description 05/05/2025 11:00 AM EST Office Visit [facility] MED & PEDS 505 [place] [address] Otilia Quiñones MD 505 [place] [address] documented as of this encounter Visit Diagnoses Not on filedocumented in this encounter Care Teams Vacuum Evaporation Operator Relationship Specialty Start Date End Date Otilia Quiñones MD [address] [place] [address] PCP - General Family Medicine 09/15/13 documented as of this encounter
--- OUTSIDE RECORDS SUMMARY | 2025-04-23 10:51 | XMS_ITS | Encounter Summary ---
Author Organization [employer] Address [address] [place] [address] [place] [address] Care Team Providers Care Mechanical Facilities Technician Name Role Phone Otilia Quiñones MD Primary Care Provider [phone] Reason for Referral * Imaging (Routine) - Authorized Specialty Diagnoses / Procedures Referred By Marilynn t Referred To Contact Radiology Diagnoses Transaminitis Procedures US Abdomen Comp w elastography Henrique Whittaker MD [address] [place] [address] Phone: tel: fax: [address] Phone: tel: fax: Referral ID Status Reason Start Date Expiration Date V isits Requested Visits Authorized [id number] Authorized 03/11/2025 03/11/2026 1 1 * Consultation (Routine) - Authorized Specialty Diagnoses / Procedures Referred By Marilynn t Referred To Contact Endocrinology Diagnoses Hyperthyroidism Henrique Whittaker MD [address] [place] [address] Phone: tel: fax: [facility] Endocrinology [address] [place], [place] Phone: tel: fax: Referral ID Status Reason Start Date Expiration Date Visits Requested Visits Authorized [id number] Authorized Specialty Services Required 03/11/2025 03/11/2026 1 1 * Imaging (Urgent) - Authorized Specialty Diagnoses / Procedures Referred By Contac t Referred To Contact Radiology Diagnoses Hyperthyroidism Procedures NM Thyroid Uptake Stimulation Suppression Henrique Whittaker MD [address] [place] [address] Phone: tel: fax: [address] Phone: tel: fax: Referral ID Status Reason Start Date Expiration Date V isits Requested Visits Authorized [id number] Authorized 03/11/2025 03/11/2026 2 2 Encounter Details Date Type Department Care Team (Late st Contact Info) Description 03/11/2025 Orders Only [facility] CHC MED & PEDS [address] [place] [address] Henrique Whittaker MD [address] [place] [address] Hyperthyroidism (Primary Dx); Transaminitis Social History Tobacco [...] AM EST Office Visit [facility] MED & PEDS [address] [place] [address] Otilia Quiñones MD [address] [place] [address] Scheduled Orders Name Type Priority Associated Diagnoses [...] Prothrombin Time 12.6(H) 10.9 - 12.4 SEC [facility] INTERNATIONAL NORM RATIO 1.1 0.9 - 1.1 [facility] Comment:INTERNATIONAL NORMAL IZED RATIO (INR) [...] Organization Address [facility] Co de Phone Number [facility] [address] [place] [address] [phone] * Hepatitis B Surface Antibody, Qualitative (03/19/2025 1:48 PM EDT) Pathologist [facility] ~Hepatitis B Surface Antibody NONREACTIVE Nonreactive [facility] Comment:Nonreactive: < 8.00 mIU/mL Blood Venous blood specimen / Unknown 03/19/2025 1:48 PM EDT 03/19/2025 2:38 PM EDT us Henrique Whittaker MD LAB BLOOD ORDERABLES Final Result Performing Organization Address [facility] Number [facility] [address] [place] [phone] * (ABNORMAL) Reticulocyte Count (03/19/2025 1:48 PM EDT) [facility] Reticulocytes Absolute 0.043 0.026 - 0.095 X10*6/uL [facility] Immature Retic Fraction 6.5 3.0 - 15.9 % [facility] Retic HGB Equivalent 26.2(L) 30.0 - 35.0 pg [facility] Reticulocyte Percent 1.0 0.5 - 1.8 % [facility] Blood Venous blood specimen / Unknown 03/19/2025 1:48 PM EDT 03/19/2025 2:38 PM EDT us Henrique Whittaker MD LAB BLOOD ORDERABLES Final Result Performing Organization Address [facility] Co de Phone Number [facility] [address] [place] [address] [phone] * Ferritin (03/19/2025 1:48 PM EDT) Pathologist [facility] Ferritin 125 10 - 250 ng/mL [facility] Blood Venous blood specimen / Unknown 03/19/2025 1:48 PM EDT 03/19/2025 2:38 PM EDT us Henrique Whittaker MD LAB BLOOD ORDERABLES Final Result Performing Organization Address [facility] Co de Phone Number [facility] [address] [place] [phone] [phone] * Iron And Total Iron Binding Capacity (03/19/2025 1:48 PM EDT) Iron 35 30 - 160 mcg/dL [facility] Total Iron Binding Capacity 241 228 - 428 mcg/dL [facility] Percent Iron Saturation 15 15 - 50 % [facility] Unsaturated Iron Binding 206 ug/dL [facility] Blood Venous blood specimen / Unknown 03/19/2025 1:48 PM EDT 03/19/2025 2:38 PM EDT us Henrique Whittaker MD LAB BLOOD ORDERABLES Final Result Performing Organization Address [facility] Co de Phone Number [facility] [address] [place] [phone] documented in this encounter Visit Diagnoses [...] documented as of this encounter Care Teams Mechanical Facilities Technician Relationship Specialty Start Date End Date Otilia Quiñones MD [address] [place] [phone] PCP - General Family Medicine 09/15/13 documented as of this encounter
--- OUTSIDE RECORDS SUMMARY | 2025-04-23 10:51 | XMS_ITS | Encounter Summary ---
Author Organization [employer] Address [address] [place] [address] 7t [place] [address] Care Team Providers Care Registration Clerk Name Role Phone Otilia Quiñones MD Primary Care Provider [phone] Encounter Details Date Type Department Care Team ([facility] st Contact Info) Description 11/02/2024 Orders Only [facility] CHC MED & PEDS [address] [place], [place] [phone] Henrique Whittaker MD [address] [place] [address] RBC microcytosis (Primary Dx); Generalized abdominal pain [...] [facility] st Contact Info) Description 05/05/2025 11:00 AM EST Office Visit [facility] MED & PEDS [address] [place], [place] [phone] Otilia Quiñones MD [address] [place], [place] [phone] Scheduled Orders Name Type Priority Associated Diagnoses [...] EDT) Ferritin 18 10 - 250 ng/mL [facility] Blood Venous blood specimen / Unknown 11/03/2024 1:29 PM EDT 11/03/2024 2:45 PM EDT us Henrique Whittaker MD LAB BLOOD ORDERABLES Final Result [facility] [address] [place] [address] [phone] * (ABNORMAL) Iron And Total Iron Binding Capacity (11/03/2024 1:29 PM EDT) Iron 17(L) 30 - 160 mcg/dL [facility] Total Iron Binding Capacity 268 228 - 428 mcg/dL [facility] Percent Iron Saturation 6(L) 15 - 50 % [facility] Unsaturated Iron Binding 251 ug/dL [facility] Blood Venous blood specimen / Unknown 11/03/2024 1:29 PM EDT 11/03/2024 2:45 PM EDT us Henrique Whittaker MD LAB BLOOD ORDERABLES Final Result Performing Organization Address [facility] Co de Phone Number [facility] [address] [place] [address] [phone] documented in this encounter Visit Diagnoses Diagnosis RBC microcytosis- Primary Generalized abdominal pain Abdominal pain, generalized documented in this encounter Additional Health Concerns Assessment Noted Time PHQ-9 Depression Total Score: 0 07/03/19 24 10:45 AM EST documented as of this encounter Care Teams Registration Clerk Relationship Specialty Start Date End Date Otilia Quiñones MD [address] [place] [address] PCP - General Family Medicine 09/15/13 documented as of this encounter
--- OUTSIDE RECORDS SUMMARY | 2025-04-23 10:51 | XMS_ITS | Encounter Summary ---
Author Organization [employer] Address [address] [place] [address] 7 [place] [address] Care Team Providers Care Grounding Engineer Name Role Phone Otilia Quiñones MD Primary Care Provider [phone] Encounter Details Date Type Department Care Team (Latest Contact Info) Description 08/11/2020 Abstract [facility] CONVERSIONS Dental, Provider, DDS Social History [...] Description 05/05/2025 11:00 AM EST Office Visit [facility] CHC MED & PEDS [address] [place] [address] Otilia Quiñones MD [address] [place] [address] documented as of this encounter Visit Diagnoses Not on filedocumented in this encounter Care Teams Grounding Engineer Relationship Specialty Start Date End Date Otilia Quiñones MD [address] [place] [address] PCP - General Family Medicine 09/15/13 documented as of this encounter
--- OUTSIDE RECORDS SUMMARY | 2025-04-23 10:51 | XMS_ITS | Encounter Summary ---
Author Organization [employer] Address [address] [place] [address] 7 [place] [address] Care Team Providers Care Nuclear Reactor Technician Name Role Phone Otilia Quiñones MD Primary Care Provider [phone] Reason for Visit * Reason Comments Med Refill Encounter Details Date Type Department Care Team ([facility] st Contact Info) Description 11/22/2023 Refill [facility] CHC MED & PEDS [address] [place], [place] [phone] Otilia Quiñones MD [address] [place], [place] [phone] Social History Tobacco Use Types Packs/Day Years [...] Upcoming Encounters Date Type Department Care Team ([facility] st Contact Info) Description 05/05/2025 11:00 AM EST Office Visit [facility] MED & PEDS [address] [place] [address] Otilia Quiñones MD [address] [place] [address] documented as of this encounter Visit Diagnoses Not on filedocumented in this encounter Additional Health Concerns Assessment Noted Time PHQ-9 Depression Total Score: 0 07/03/19 24 10:45 AM EST documented as of this encounter Care Teams Nuclear Reactor Technician Relationship Specialty Start Date End Date Otilia Quiñones MD [address] [place] [address] PCP - General Family Medicine 09/15/13 documented as of this encounter
--- OUTSIDE RECORDS SUMMARY | 2025-04-23 10:51 | XMS_ITS | Encounter Summary ---
Author Organization [employer] Address [address] [place] [address] 7t [place] [address] Care Team Providers Care Membership Secretary Name Role Phone Otilia Quiñones MD Primary Care Provider [phone] Reason for Referral * Consultation (STAT) - Canceled Specialty Diagnoses / Procedures Referred By Contmarcela t Referred To Contact Endocrinology Diagnoses Hyperthyroidism Kristi Calderon NP [address] [place] [address] Phone: tel: fax: Referral ID Status Reason Start Date Expiration Date Visits Requested Visits Authorized [id number] Canceled Specialty Services Required 03/28/2025 03/28/2026 1 1 Encounter Details Date Type Department Care Team (Late st Contact Info) Description 03/28/2025 Telephone [facility] MEDICINE [address] [place], [place] [phone] Kristi Calderon NP [address] [place], [place] [phone] Social History Tobacco Use Types Packs/Day Years [...] Referral placed. Note [facility] front end alignment specialist for scheduling. documented in this encounter Plan of Treatment Upcoming Encounters Date Type Department Care Team ([facility] st Contact Info) Description 05/05/2025 11:00 AM EST Office Visit [facility] MED & PEDS [address] [place] [address] Otilia Quiñones MD [address] [place] [address] Scheduled Referrals Name Type Priority Associated Diagnoses [...] documented as of this encounter Care Teams Membership Secretary Relationship Specialty Start Date End Date Otilia Quiñones MD [address] [place] [address] PCP - General Family Medicine 09/15/13 documented as of this encounter
== END ==
LOC: HO.NUCMED 10:14
PROVIDERS: PCP Pediatrics; Visit Provider Internal Medicine
DX: R07.9 Chest pain, unspecified (principal); E05.90 Thyrotoxicosis, unspecified without thyrotoxic crisis or storm; J02.9 Acute pharyngitis, unspecified
CPT/HCPCS: 78014; 87070; A9512; A9516

== ENCOUNTER 2025-05-12 11:14 | Outpatient (REF) | payer MEDICAID, SELFPAY ==
[2025-05-12 15:20] LABS: Appearance Urine Clear; Glucose Urine UA Negative (Negative); PH 5.0 (5.0-9.0); Specific Gravity - Urine 1.020 (1.005-1.025); UMIC TRIGGER UACC YES
[2025-05-12 15:35] LABS: Hematocrit 36.4 % (37.0-47.0); Hemoglobin 11.4 g/dl (12.0-16.0); Mean Corpuscular HGB Conc 31.3 g/dl (31.0-35.0); Mean Corpuscular Hemoglobin 23.4 pg (27.0-33.0); Mean Corpuscular Volume 74.7 fL (80.0-98.0); NRBC Abs Auto 0.000 X10*3/uL (0.0-0.012); NRBC Pct Auto 0.0 /100WBC (0.0-0.2); Platelet Count 219 X10*3/uL (160-400); Red Blood Count 4.87 X10*6/uL (4.20-5.50); White Blood Count 6.0 X10*3/uL (4.8-10.8)
[2025-05-12 16:30] LABS: Alanine Aminotransferase 89 U/L (0-31); Albumin Level 4.2 g/dL (3.5-5.0); Alkaline Phosphatase 209 U/L (39-117); Aspartate Amino Transferase 58 U/L (5-31); Total Protein 7.3 g/dL (6.5-8.0)
[2025-05-12 17:06] LABS: CT PCR Urine NOT DETECTED (Not Detect.); NG PCR Urine NOT DETECTED (Not Detect.)
[2025-05-12 17:43] LABS: Free T4 (Free Thyroxine) 0.85 ng/dL (0.71-1.85)
== END 2025-05-12 11:15 | disposition home or self-care (01) ==
LOC: HO.CHCLDS 11:14
PROVIDERS: PCP Pediatrics; Referring Provider Student in an Organized Health Care Education/Training Program; Visit Provider Pediatrics
DX: E05.00 Thyrotoxicosis with diffuse goiter without thyrotoxic crisis or storm (principal); N30.90 Cystitis, unspecified without hematuria; Z20.2 Contact with and (suspected) exposure to infections with a predominantly sexual mode of transmission
CPT/HCPCS: 36415; 80076; 81001; 84439; 84443; 84481; 85027; 87491; 87591

== ENCOUNTER 2025-05-15 20:09 | Emergency (ER) | payer MEDICAID, SELFPAY ==
--- NOTE | ~2025-05-15 | CT_ITS ---
CLINICAL HISTORY: generalized abd pain, vomiting CT abdomen and pelvis with contrast Comparison: CT - CT ABDOMEN PELVIS W IV CON - 05/16/25 00:[address]/MA/SR - CT CHEST WITH IV CONTRAST - 03/05/25 13:[address]/[place]/SR - CT ABDOMEN PELVIS WITH IV CONTRAST - 11/12/24 10:37 EDT Findings: The lung bases are clear. Right middle lobe 3 mm nodule. Heart size is normal. Spleen is normal. There is a splenule. Hepatic parenchyma is normal. Gallbladder is decompressed. There is gallbladder wall thickening. Pancreas is normal. Stomach is distended. Adrenal glands are normal. Kidneys are normal. No hydronephrosis or hydroureter. No nephrolithiasis or ureteral lithiasis. Bladder is partially distended. The small bowel is normal. Multiple focally dilated loops of small bowel are present in the right pelvis. These are contiguous with right adnexal contents. Multilocular cystic region is present in the right adnexa, abutting the uterus. There is fat stranding adjacent to the uterus and cervix. Terminal ileum is otherwise normal. The partially gas-filled appendix is normal. Moderate stool burden in the ascending, transverse, descending colon. No evidence of diverticulitis. No high-grade bowel obstruction, pneumoperitoneum, or pneumatosis. No acute fracture. IMPRESSION: Interval development of multilocular cystic lesion in the right adnexa with dilation of adjacent small bowel loops. This may represent sequelae of infection, salpingitis, tubo-ovarian abscess, or right adnexal mass. Clinical correlation for infectious/inflammatory markers is recommended. No evidence of appendicitis or diverticulitis. Decompressed gallbladder with wall thickening and no pericholecystic fluid. This document has been electronically signed by: Martínez Crane III, MD PHD on 05/16/2025 02:44:48
--- NOTE | ~2025-05-15 | US_ITS ---
CLINICAL HISTORY: pain, gallbladder, CBD US abdomen limited Comparison: US/[place]/SR - US ABDOMEN LIMITED - 09/17/2024 02:01 PM EDT Findings: The liver is normal in size and echotexture. There is no intrahepatic bile duct dilatation. The common duct is 4 mm in diameter. The gallbladder is normal. There is no sonographic Marcelo sign. The main portal vein is antegrade. No ascites. IMPRESSION: No cholelithiasis. This document has been electronically signed by: Roderick Bar MD on 05/15/2025 22:35:19
[2025-05-15 20:32] VITALS: BP 139/66; PULSE 70; RESP 16; TEMP 36.8; O2SAT 100; BMI 24.4
--- NOTE | 2025-05-15 20:34 | ED_ITS ---
HPI - Abdominal Pain General Chief Complaint: Recheck/Abnormal Lab/Rx Stated Complaint: abnormal labs Time Seen by Provider: 05/15/25 22:56 Source: patient, RN notes reviewed and old records reviewed Mode of arrival: ambulatory Limitations: no limitations History of Present Illness ED Provider: Dr. Radha Lopez HPI narrative: 49-year-old female with a recent diagnosis of Graves? disease who began methimazole therapy on 04/12 (approx 1 month ago). She presents to the ED for evaluation of worsening abdominal pain, dark urine, generalized pruritus, and constipation. * Abdominal pain: Two distinct areas. (1) Constant dull pain localized just superior to the umbilicus; patient points directly to the midepigastric area. (2) Intermittent cramping pain low in the pelvis described as ?like contractions? in the region of her uterus. Pain worsens with movement and with straining for bowel movements. Also reports persistent pain around the liver (RUQ). * Urinary changes: Urine noted to be ?very, very dark? for several days. Denies dysuria or burning. * Pruritus / rash: Generalized itching ?all over,? most pronounced on hands, face, and back. Hands and feet itching x2 days with visible excoriations of the hands. * Constipation: Difficulty passing stool for several days; even with suppository had minimal relief. No diarrhea. Reports some improvement in constipation for a few days, then symptoms recurred. * Nausea / vomiting: Occasional nausea; today had emesis after prolonged coughing spell. * Cough / respiratory: Frequent cough with sensation of airway restriction; cough sometimes triggers vomiting. No known sick contacts. * Fever: Intermittent low-grade fevers over the past 3 weeks; none in the past 3 days. * Weight loss: Unintentional loss of ~20 lb over 1 month prior to starting methimazole; functional status improved on medication. * Chest pain / palpitations: Intermittent chest pain and palpitations, attributed to Graves? disease. * Menstrual history: Denies dysuria, hematuria, or vaginal bleeding today. Reports lifelong irregular menses, sometimes with prolonged bleeding up to a month or as short as five days. * Neck swelling: Reports prior neck swelling (likely thyroid-related) that has improved since starting methimazole. * Past imaging: Recent liver ultrasound reportedly showed mild inflammation but otherwise normal. * Past medical history: History of anemia, fatty liver, and gastritis. * Social history: Lives at home with two disabled children. * Admits full adherence to methimazole until this morning. Related Data Home Medications ?Medication ?Instructions ?Recorded ?Confirmed clonidine HCl 0.2 mg tablet 0.2 mg PO BEDTIME 11/16/24 04/08/25 Previous Rx's ?Medication ?Instructions ?Recorded furosemide 20 mg tablet (Lasix) 20 mg PO DAILY #60 tab s 04/08/25 methimazole 10 mg tablet 10 mg PO BID #60 tabs atenolol 25 mg tablet 50 mg (2 x 25 mg) PO DAILY # 30 tabs 04/21/25 dicyclomine 20 mg tablet 20 mg PO TID #10 tabs hydroxyzine HCl 25 mg tablet 25 mg PO TID PRN itching #20 tabs 05/16/25 nitrofurantoin 100 mg PO Q12H 7 days #14 ca ps 05/16/25 monohydrate/macrocrystals 100 mg capsule (Macrobid) ondansetron 4 mg disintegrating 4 mg PO Q8H PRN nausea and 05/16/25 tablet vomiting #10 tabs phenazopyridine 100 mg tablet 100 mg PO TID PRN pain 6 doses #6 05/16/25 (Pyridium) tabs Allergies Allergy/AdvReac Type Severity Reaction Status Date / Time No Known Allergies (No Known Allergy Verified 05/15/25 20:35 Allergies*) Review of Systems Review of Systems as per HPI, full review of systems performed and negative but for the above mentioned pertinent positives and negatives. [facility] Past Medical History Medical History Throat pain Prolapsed hemorrhoids Bleeding hemorrhoids Smoker Anxiety Surgical History History of tubal ligation H/O section Family History Family History Maternal Grandmother Breast cancer Mother History of high blood pressure Social History Social History Alcohol intake: never Patient Tobacco Use Status: Former Tobacco user Smoked in Last 30 Days: No Use of substances other than those prescribed or required for medical reasons: No Substance Use Type: Marijuana Advance Directives: No Advance Directives Information Provided: No Do you have a plan to hurt others: No Plan Patient : No Physical Exam ED Exam Exam: GENERAL: Chronically ill-Appearing, appears uncomfortable. SKIN: Slight jaundice, warm, dry, no rashes noted. HEENT:? Normocephalic, atraumatic, no stridor, dry mucous membranes, dentition intact, EOMI, exophthalmos with injected sclera bilaterally, no conjunctivitis. NECK: Soft, supple, full ROM, midline structures nontender, no step-offs, no deformities, no lymphadenopathy, goiter visible. CHEST: Heart regular rhythm, no murmurs, symmetric chest rise and fall. PULMONARY: Clear to auscultation bilaterally, diminished at the bases, no labored breathing, no wheezes/rhales/rhonchi. ABDOMINAL: Softly distended, diffusely tender to palpation with voluntary guarding, positive bowel sounds in all quadrants, hepatomegaly. : Deferred. MUSCULOSKELETAL: Normal tone, full range of motion, no deformities, no peripheral edema. NEURO: Alert and oriented x3, CN II through XII intact, equal strength and sensation bilateral upper and lower extremities, no focal neurologic deficits.? PSYCHIATRIC: Flat affect, fluid speech, good eye contact and appropriate demeanor. Vital Signs: Vital Signs - 24 hr 05/15/25 20:32 05/15/25 22:49 05/16/25 02:34 Temperature 98.2 F 98.2 F 98.2 F Pulse Rate 70 65 65 Respiratory Rate 16 16 16 Blood Pressure 139/66 135/65 135/65 Pulse Oximetry 100 100 100 Oxygen Delivery Method Room Air Room Air Room Air BMI result Body Mass Index 24.4 Course Course Course Narrative: This is a RME preformed in triage by Kyleigh Wolf PA-C. Date: 05/15/25, time?836pm . Patient presents with right sided abd pain. Geovanna presents to the ED after being directed by Dr. Turpin ([facility]) earlier today due to abnormal laboratory results drawn on 11/10. She reports pain localized to the lower right abdomen that radiates across the right flank and into the right leg, and specifically describes pain in my liver. Pain has been constant for the past 3 days, preceded by intermittent abdominal discomfort for ~1 month. Prior peak severity ?22/03,? now improved but still present and ?traveling.? She notes one episode of vomiting; denies pain specifically triggered by meals. Last meal was around 2?3 PM today with no immediate post-prandial pain. She describes occasional contraction-like discomfort with bowel movements but otherwise normal stool consistency and no blood. Denies dysuria; last void just before arrival. Last BM ~4 hours prior to presentation. Past surgical history significant only for section. Past medical history notable for Graves? disease for which she takes multiple medications (details not provided). Patient is concerned and seeks further evaluation. Review of Systems: * Gastrointestinal: Right-sided abdominal pain, one episode of nausea/vomiting, no hematochezia or melena, normal stool consistency. * Genitourinary: No dysuria; normal urine output. * Musculoskeletal: Pain radiating to right leg. Work UP:?repeat labs, done in [facility] system on the : microcyctic anemia H/H 11.4/36.4, elevated bili, and LFTs, concern for hepatobiliary disease, GB U/S ordered Will defer full ROS and PE to treating provider. Patient will continued to be monitored in the interim. Medical Decision Making Medical Decision Making MDM Narrative: Assessment & Plan Diagnoses: - Abdominal pain (suprpubic and RUQ), dark urine, pruritus ? suspected adverse reaction to methimazole with possible drug-induced hepatic inflammation. - Constipation. - Graves? disease (on hold methimazole). Plan: - Discontinue methimazole effective immediately; patient verbalized understanding. - CT abdomen/pelvis to rule out intra-abdominal or pelvic pathology. - Provide analgesia for abdominal pain (medication given in ED). - Monitor UA and any additional labs as resulted. - Arrange follow-up with mechanical field engineer on Saturday to discuss alternative management for Graves? disease. Emergency Department Course - Prior outpatient labs on 05/12 reportedly showed elevated liver enzymes (results not in ED chart). - Urinalysis from outpatient visit ?wasn?t infected?; repeat UA collected in ED (results pending). - Discussion with patient regarding potential methimazole-induced hepatotoxicity manifesting as pruritus, abdominal pain, dark urine, and constipation; advised to discontinue methimazole. - CT abdomen/pelvis ordered to evaluate abdominal and pelvic pain. - Pain medication planned to be administered in ED (medication not specified in transcript). - No medication allergies reported. - Patient reports that she is unable to stay in the emergency department at this time. 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 She has what appears to be potential UTI with nitrite positive urine, 1+ bacteria. She is unable to wait for her CT results. Provided with Macrobid for potential UTI. Instructed to stop using methimazole immediately. She has follow up with her mechanical field engineer this week. 3:14 AM 05/16/2025 (Dr. Radha Lopez, D.O.) received call from radiologist reporting potential TOA seen on her CT abd/pel. She does not have an elevated white blood cell count and has been afebrile. That being said, she does have significant suprapubic abdominal tenderness which could be due to TOA or other intrauterine infection including salpingitis. Attempted to call the patient but did not get a response. We will try calling again in a couple of hours. Of course Macrobid will not cover for a TOA. Lab Data 05/15/25 20:52 05/15/25 20:52 Labs: Lab Results 05/15/25 05/16/25 Range/Units 20:52 01:16 WBC 4.4 L (4.8-10.8) X10*3/uL RBC 4.70 (4.20-5.50) X10*6/uL Hgb 10.9 L (12.0-16.0) g/dl Hct 34.8 L (37.0-47.0) % MCV 74.0 L (80.0-98.0) fL MCH 23.2 L (27.0-33.0) pg MCHC 31.3 (31.0-35.0) g/dl RDW 13.6 (11.0-16.0) % Plt Count 234 (160-400) X10*3/uL MPV 11.7 (9.4-12.3) fL Immature Gran % (Auto) 0.2 (0.0-0.4) % Neut % (Auto) 62.2 (45-73) % Lymph % (Auto) 23.1 (20-40) % [place] % (Auto) 9.5 (2-11) % Eos % (Auto) 4.5 H (0-4) % Baso % (Auto) 0.5 (0-2) % Lymph # (Auto) 1.0 L (1.2-4.9) X10*3/uL [place] # (Auto) 0.4 (0.1-1.2) X10*3/uL Eos # (Auto) 0.2 (0.0-0.4) X10*3/uL Baso # (Auto) 0.0 (0.0-0.2) X10*3/uL Abs Immat Gran (auto) 0.01 (0.00-0.03) X10*3/uL Absolute Neuts (auto) 2.7 (2.0-8.3) x10*3/uL Absolute Nucleated RBC 0.000 (0.0-0.012) X10*3/uL Nucleated RBC % (auto) 0.0 (0.0-0.2) /100WBC PT 13.5 (11.2-13.5) SEC INR 1.1 (0.9-1.1) Sodium 139 (135-145) mmol/L Potassium 3.7 (3.3-5.1) mmol/L Chloride 104 (96-108) mmol/L Carbon Dioxide 28 (22-29) mmol/L Anion Gap 11 L (12-20) BUN 8 L (9-16) mg/dL Creatinine 0.51 (0.5-1.4) mg/dL Estim Creat Clear Calc 116.5 Estimated GFR > 60 Random Glucose 87 (60-115) mg/dL Calcium 9.9 (8.4-10.2) mg/dL Magnesium 1.8 (1.6-2.6) mg/dL Total Bilirubin 0.8 (0.0-1.0) mg/dL AST 71 H (5-31) U/L ALT 84 H (0-31) U/L Alkaline Phosphatase 289 H (39-117) U/L Total Protein 7.5 (6.5-8.0) g/dL Albumin 4.3 (3.5-5.0) g/dL Lipase 72 (8-78) U/L Urine Color [place] A Urine Appearance Clear Urine pH 6.0 (5.0-9.0) Ur Specific [place] 1.020 (1.005-1.025) Urine Protein Negative (Neg-Trace) mg/dL Urine Glucose (UA) Negative (Negative) mg/dL Urine Ketones Negative (Negative) mg/dL Urine Blood Negative (Negative) Urine Nitrite Positive H (Negative) Ur Leukocyte Esterase Small (1+) H (Negative) Urine RBC 3-5 H (0-2) /HPF Urine WBC 0-5 (0-5) /HPF Ur Squamous Epith Cells 6-10 (0-2) /HPF Calcium Oxalate Crystal Present Urine Bacteria 1+ (None Seen) Hyaline Casts 0-2 (0-2) /LPF Monoscreen Negative (Negative) Radiology Impression Discussion of test interpretation with radiology: I have reviewed the radiologist's reading. Radiologist Impression: CT abdomen and pelvis with contrast Findings: The lung bases are clear. Right middle lobe 3 mm nodule. Heart size is normal. Spleen is normal. There is a splenule. Hepatic parenchyma is normal. Gallbladder is decompressed. There is gallbladder wall thickening. Pancreas is normal. Stomach is distended. Adrenal glands are normal. Kidneys are normal. No hydronephrosis or hydroureter. No nephrolithiasis or ureteral lithiasis. Bladder is partially distended. The small bowel is normal. Multiple focally dilated loops of small bowel are present in the right pelvis. These are contiguous with right adnexal contents. Multilocular cystic region is present in the right adnexa, abutting the uterus. There is fat stranding adjacent to the uterus and cervix. Terminal ileum is otherwise normal. The partially gas-filled appendix is normal. Moderate stool burden in the ascending, transverse, descending colon. No evidence of diverticulitis. No high-grade bowel obstruction, pneumoperitoneum, or pneumatosis. No acute fracture. IMPRESSION: Interval development of multilocular cystic lesion in the right adnexa with dilation of adjacent small bowel loops. This may represent sequelae of infection, salpingitis, tubo-ovarian abscess, or right adnexal mass. Clinical correlation for infectious/inflammatory markers is recommended. No evidence of appendicitis or diverticulitis. Decompressed gallbladder with wall thickening and no pericholecystic fluid. Medications Administered Discontinued Medications Generic Name Dose Route Start Last Admin Trade Name Freq PRN Reason Stop Dose Admin Dicyclomine HCl 20 mg 05/16/25 00:11 05/16/25 00:22 Dicyclomine Hcl 10 Mg Capsule PO 05/16/25 00:12 20 mg ONCE ONE Administration Hydroxyzine HCl 50 mg 05/16/25 00:11 05/16/25 00:23 Hydroxyzine Hcl 50 Mg Tablet PO 05/16/25 00:12 50 mg ONCE ONE Administration Lactated Ringer's 1,000 mls @ 999 mls/hr 05/16/25 00:16 05/16/25 02:35 Lr IV 05/16/25 01:16 Infused .Q1H1M ONE Infusion Iohexol 85 ml 05/16/25 00:37 05/16/25 00:38 Iohexol 350 Mg/Ml 100 Ml Infus..Btl IV 05/16/25 00:38 85 ml ONCE ONE Administration Phenazopyridine HCl 200 mg 05/16/25 00:11 05/16/25 00:23 Phenazopyridine Hcl 200 Mg Tablet PO 05/16/25 00:12 200 mg ONCE ONE Administration Discharge Plan Discharge Clinical Impression: Transaminitis, Abdominal fullness in suprapubic region, Adverse effect of methimazole, UTI (urinary tract infection) Patient Disposition: Home, Self-Care Instructions: Methimazole (By mouth) Additional Instructions: Stop taking your methimazole. Call your mechanical field engineer on Saturday in follow-up. Your elevated liver enzymes are likely related to this medication. Start taking Macrobid for UTI symptoms. Use hydroxyzine for itching of your hands. Return to the emergency department with any new or worsening symptoms including: Worsening pain despite medication, fevers greater than 100?, inability to tolerate food or drink, any new symptom that concerns you. Call 911 with any medical emergency. Prescriptions: New dicyclomine 20 mg tablet 20 mg PO TID Qty: 10 0RF phenazopyridine [Pyridium] 100 mg tablet 100 mg PO TID PRN (Reason: pain) Qty: 6 0RF ondansetron 4 mg tablet,disintegrating 4 mg PO Q8H PRN (Reason: nausea and vomiting) Qty: 10 0RF nitrofurantoin monohyd/m-cryst [Macrobid] 100 mg capsule 100 mg PO Q12H 7 Days Qty: 14 0RF Rx Instructions: must administer with a meal/food hydroxyzine HCl 25 mg tablet 25 mg PO TID PRN (Reason: itching) Qty: 20 0RF No Action atenolol 25 mg tablet 50 mg PO DAILY Qty: 30 0RF clonidine HCl 0.2 mg tablet 0.2 mg PO BEDTIME furosemide [Lasix] 20 mg tablet 20 mg PO DAILY Qty: 60 0RF methimazole 10 mg tablet 10 mg PO BID Qty: 60 3RF Interventions: ED Discharge Assessment Last Done: 05/16/25 02:34 Discharge Date/Time: 05/16/25 02:34 Print Language: Gabonese
[2025-05-15 20:56] LABS: MANUAL DIFF FLAG NO
[2025-05-15 20:57] LABS: Hematocrit 34.8 % (37.0-47.0); Hemoglobin 10.9 g/dl (12.0-16.0); Imm Gran Abs Auto 0.01 X10*3/uL (0.00-0.03); Imm Gran Pct Auto 0.2 % (0.0-0.4); Lymphocytes Absolute Auto 1.0 X10*3/uL (1.2-4.9); Mean Corpuscular HGB Conc 31.3 g/dl (31.0-35.0); Mean Corpuscular Hemoglobin 23.2 pg (27.0-33.0); Mean Corpuscular Volume 74.0 fL (80.0-98.0); NRBC Abs Auto 0.000 X10*3/uL (0.0-0.012); NRBC Pct Auto 0.0 /100WBC (0.0-0.2); Platelet Count 234 X10*3/uL (160-400); Red Blood Count 4.70 X10*6/uL (4.20-5.50); White Blood Count 4.4 X10*3/uL (4.8-10.8)
[2025-05-15 21:01] LABS: Appearance Urine Clear; Glucose Urine UA Negative (Negative); PH 6.0 (5.0-9.0); Specific Gravity - Urine 1.020 (1.005-1.025); UMIC TRIGGER UACC YES
[2025-05-15 21:17] LABS: UACC Culture Trigger YES
[2025-05-15 21:24] LABS: Alanine Aminotransferase 84 U/L (0-31); Albumin Level 4.3 g/dL (3.5-5.0); Alkaline Phosphatase 289 U/L (39-117); Anion Gap 11 (12-20); Aspartate Amino Transferase 71 U/L (5-31); Blood Urea Nitrogen 8 mg/dL (9-16); Calcium 9.9 mg/dL (8.4-10.2); Carbon Dioxide 28 mmol/L (22-29); Chloride 104 mmol/L (96-108); Creatinine Clr Calc Pharmacy 116.5; Estimated Glomerular Filt Rate > 60; Lipase 72 U/L (8-78); Magnesium 1.8 mg/dL (1.6-2.6); Potassium 3.7 mmol/L (3.3-5.1); Sodium 139 mmol/L (135-145); Total Protein 7.5 g/dL (6.5-8.0)
[2025-05-15 22:49] VITALS: BP 135/65; PULSE 65; RESP 16; TEMP 36.8; O2SAT 100
--- OUTSIDE RECORDS SUMMARY | 2025-05-15 23:52 | XMS_ITS | Encounter Summary ---
Author Organization [employer] Address [address] [place] [address] [address] [place] [address] Care Team Providers Care Cosmetic Consultant Name Role Phone Otilia Quiñones MD Primary Care Provider [phone] Encounter Details Date Type Department Care Team ([facility] st Contact Info) Description 11/02/2024 Orders Only [facility] MED & PEDS [address] [place], [place] [phone] Henrique Whittaker MD [address] [place] [address] RBC microcytosis (Primary Dx); Generalized abdominal pain [...] Care Team (Late st Contact Info) Description 06/11/2025 10:00 AM EST Office Visit [facility] ADULT DENTAL [address] [place] [address] Yoshi Sandoval, DMD [address] [place] [address] Scheduled Orders Name Type Priority Associated Diagnoses [...] EDT) Ferritin 18 10 - 250 ng/mL [facility] Blood Venous blood specimen / Unknown 11/03/2024 1:29 PM EDT 11/03/2024 2:45 PM EDT us Henrique Whittaker MD LAB BLOOD ORDERABLES Final Result [facility] [address] [place] [address] [phone] * (ABNORMAL) Iron And Total Iron Binding Capacity (11/03/2024 1:29 PM EDT) Iron 17(L) 30 - 160 mcg/dL [facility] Total Iron Binding Capacity 268 228 - 428 mcg/dL [facility] Percent Iron Saturation 6(L) 15 - 50 % [facility] Unsaturated Iron Binding 251 ug/dL [facility] Blood Venous blood specimen / Unknown 11/03/2024 1:29 PM EDT 11/03/2024 2:45 PM EDT us Henrique Whittaker MD LAB BLOOD ORDERABLES Final Result Performing Organization Address City/State/[facility] Co de Phone Number [facility] [address] [place] [address] [phone] documented in this encounter Visit Diagnoses Diagnosis RBC microcytosis- Primary Generalized abdominal pain Abdominal pain, generalized documented in this encounter Additional Health Concerns Assessment Noted Time PHQ-9 Depression Total Score: 0 07/03/19 24 10:45 AM EST documented as of this encounter Care Teams Cosmetic Consultant Relationship Specialty Start Date End Date Otilia Quiñones MD [address] [place] [address] PCP - General Family Medicine 09/15/13 documented as of this encounter
--- OUTSIDE RECORDS SUMMARY | 2025-05-15 23:52 | XMS_ITS | Encounter Summary ---
Author Organization [employer] Address [address] [facility] [address] [place] [address] Care Team Providers Care Oral Health Therapist Name Role Phone Otilia Quiñones MD Primary Care Provider [phone] Encounter Details Date Type Department Care Team (Late st Contact Info) Description 03/28/2023 Abstract [facility] MED[facility]INE [address] [place] [address] Otilia Quiñones MD [address] [place], [place] [phone] Social History Tobacco Use Types Packs/Day Years [...] Description 06/11/2025 10:00 AM EST Office Visit [facility] ADULT DENTAL [address] [place] [address] Yoshi Sandoval, DMD [address] [place] [address] documented as of this encounter Visit Diagnoses Not on filedocumented in this encounter Care Teams Oral Health Therapist Relationship Specialty Start Date End Date Otilia Quiñones MD [address] [place] [address] PCP - General Family Medicine 09/15/13 documented as of this encounter
--- OUTSIDE RECORDS SUMMARY | 2025-05-15 23:52 | XMS_ITS | Encounter Summary ---
Author Organization [employer] Address [address] [place] [address] [place] [address] Care Team Providers Care Tire Specialist Name Role Phone Otilia Quiñones MD Primary Care Provider [phone] Reason for Referral * Imaging (Routine) - Authorized Specialty Diagnoses / Procedures Referred By Marilynn sharma Referred To Contact Radiology Diagnoses Transaminitis Procedures US Abdomen Comp w elastography Henrique Whittaker MD [address] [place] [address] Phone: tel: fax: [address] [phone] Phone: tel: fax: Referral ID Status Reason Start Date Expiration Date V isits Requested Visits Authorized [id number] Authorized 03/11/2025 03/11/2026 1 1 * Consultation (Routine) - Closed Specialty Diagnoses / Procedures Referred By Marilynn sharma Referred To Contact Endocrinology Diagnoses Hyperthyroidism Henrique Whittaker MD [address] [place] [address] Phone: tel: fax: [facility] Endocrinology [address] [place] [address] Phone: tel: fax: Referral ID Status Reason Start Date Expiration Date V isits Requested Visits Authorized [id number] Closed Specialty Services Required 03/11/2025 03/11/2026 1 1 * Imaging (Urgent) - Closed Specialty Diagnoses / Procedures Referred By Marilynn t Referred To Contact Radiology Diagnoses Hyperthyroidism Procedures NM Thyroid Uptake Stimulation Suppression Henrique Whittaker MD [address] [place] [address] Phone: tel: fax: [address] [phone] Phone: tel: fax: Referral ID Status Reason Start Date Expiration Date Visits Re quested Visits Authorized [id number] Closed 03/11/2025 03/11/2026 2 2 Encounter Details Date Type Department Care Team (Late st Contact Info) Description 03/11/2025 Orders Only [facility] CHC MED & PEDS [address] [place], [place] [phone] Henrique Whittaker MD [address] [place], [place] [phone] Hyperthyroidism (Primary Dx); Transaminitis Social History Tobacco [...] Description 06/11/2025 10:00 AM EST Office Visit [facility] ADULT DENTAL [address] [place] [address] Yoshi Sandoval, DMD [address] [place] [address] Scheduled Orders Name Type Priority Associated Diagnoses [...] Prothrombin Time 12.6(H) 10.9 - 12.4 SEC [facility] INTERNATIONAL NORM RATIO 1.1 0.9 - 1.1 [facility] Comment:INTERNATIONAL NORMAL IZED RATIO (INR) REFERENCE [...] BLOOD ORDERABLES Final Result Performing Organization Address [facility] Phone Number [facility] [address] [place] [phone] * Hepatitis B Surface Antibody, Qualitative (03/19/2025 1:48 PM EDT) Pathologist [facility] ~Hepatitis B Surface Antibody NONREACTIVE Nonreactive [facility] Comment:Nonreactive: < 8.00 mIU/mL Blood Venous blood specimen / Unknown 03/19/2025 1:48 PM EDT 03/19/2025 2:38 PM EDT us Henrique Whittaker MD LAB BLOOD ORDERABLES Final Result Performing Organization Address [facility] [address] [place] [phone] * (ABNORMAL) Reticulocyte Count (03/19/2025 1:48 PM EDT) [facility] Reticulocytes Absolute 0.043 0.026 - 0.095 X10*6/uL [facility] Immature Retic Fraction 6.5 3.0 - 15.9 % [facility] Retic HGB Equivalent 26.2(L) 30.0 - 35.0 pg [facility] Reticulocyte Percent 1.0 0.5 - 1.8 % [facility] Blood Venous blood specimen / Unknown 03/19/2025 1:48 PM EDT 03/19/2025 2:38 PM EDT us Henrique Whittaker MD LAB BLOOD ORDERABLES Final Result Performing Organization Address [facility] Number [facility] [address] [place] [phone] * Ferritin (03/19/2025 1:48 PM EDT) Ferritin 125 10 - 250 ng/mL [facility] Blood Venous blood specimen / Unknown 03/19/2025 1:48 PM EDT 03/19/2025 2:38 PM EDT us Henrique Whittaker MD LAB BLOOD ORDERABLES Final Result Performing Organization Address [facility] Co de Phone Number [facility] [address] [place] [phone] * Iron And Total Iron Binding Capacity (03/19/2025 1:48 PM EDT) Iron 35 30 - 160 mcg/dL [facility] Total Iron Binding Capacity 241 228 - 428 mcg/dL [facility] Percent Iron Saturation 15 15 - 50 % [facility] Unsaturated Iron Binding 206 ug/dL [facility] Blood Venous blood specimen / Unknown 03/19/2025 1:48 PM EDT 03/19/2025 2:38 PM EDT us Henrique Whittaker MD LAB BLOOD ORDERABLES Final Result Performing Organization Address [facility] de Phone Number [facility] [address] [place] [phone] documented in this encounter Visit Diagnoses [...] documented as of this encounter Care Teams Tire Specialist Relationship Specialty Start Date End Date Otilia Quiñones MD [address] [place] [phone] PCP - General Family Medicine 09/15/13 documented as of this encounter
--- OUTSIDE RECORDS SUMMARY | 2025-05-15 23:52 | XMS_ITS | Encounter Summary ---
Author Organization [employer] Address [address] [place] [address] 7t [place] [address] Care Team Providers Care Entry Level Sales Representative Name Role Phone Otilia Quiñones MD Primary Care Provider [phone] Reason for Referral * Consultation (STAT) - Canceled Specialty Diagnoses / Procedures Referred By Contmarcela t Referred To Contact Endocrinology Diagnoses Hyperthyroidism Kristi Calderon NP [address] [place] [address] Phone: tel: fax: Referral ID Status Reason Start Date Expiration Date Visits Requested Visits Authorized [id number] Canceled Specialty Services Required 03/28/2025 03/28/2026 1 1 Encounter Details Date Type Department Care Team (Late st Contact Info) Description 03/28/2025 Telephone [facility] MEDICINE [address] [place], [place] [phone] Kristi Calderon NP [address] [place], [place] [phone] Social History Tobacco Use Types Packs/Day Years [...] Referral placed. [facility]. documented in this encounter Plan of Treatment Upcoming Encounters Date Type Department Care Team (Late st Contact Info) Description 06/11/2025 10:00 AM EST Office Visit [facility] [address] [place] [address] Jaime Yoshi, DMD [address] [place] [address] Scheduled Referrals Name Type Priority Associated Diagnoses [...] documented as of this encounter Care Teams Entry Level Sales Representative Relationship Specialty Start Date End Date Otilia Quiñones MD [address] [place] [address] PCP - General Family Medicine 09/15/13 documented as of this encounter
--- OUTSIDE RECORDS SUMMARY | 2025-05-15 23:53 | XMS_ITS | Encounter Summary ---
Author Organization [employer] Address [address] [place] [address] 7t [place] [address] Care Team Providers Care Hris Coordinator Name Role Phone Otilia Quiñones MD Primary Care Provider [phone] Encounter Details Date Type Department Care Team ([facility] Contact Info) Description 04/26/2025 Results Follow-Up [facility] CHC MED & PEDS [address] [place] [address] Henrique Whittaker MD [address] [place] [address] Culture, Throat Social History Tobacco Use Types [...] Description 06/11/2025 10:00 AM EST Office Visit [facility] ADULT DENTAL [address] [place] [address] Yoshi Sandoval, DMD [address] [place] [address] documented as of this encounter Visit Diagnoses Not on filedocumented in this encounter Additional Health Concerns Assessment Noted Time PHQ-9 Depression Total Score: 0 07/03/19 24 10:45 AM EST documented as of this encounter Care Teams Hris Coordinator Relationship Specialty Start Date End Date Otilia Quiñones MD [address] [place] [address] PCP - General Family Medicine 09/15/13 documented as of this encounter
--- OUTSIDE RECORDS SUMMARY | 2025-05-15 23:53 | XMS_ITS | Encounter Summary ---
Author Organization [employer] Address [address] [facility] 7t [place] [address] Care Team Providers Care Cnc Machine Programmer Name Role Phone Otilia Quiñones MD Primary Care Provider [phone] Encounter Details Date Type Department Care Team (Late st Contact Info) Description 05/12/2025 Orders Only [facility] MEDICINE [address] [place] [address] Otilia Quiñones MD [address] [place], [place] [phone] Cystitis (Primary Dx) Social History Tobacco Use Types [...] Description 06/11/2025 10:00 AM EST Office Visit [facility] ADULT DENTAL [address] [place] [address] Yoshi Sandoval, DMD [address] [place] [address] documented as of this encounter Procedures Procedure Name Priority Date/Time Associated Diagnosis Comments CHLAMYDIA/TRICHOMON /NEISSERIA GONORRHOEAE, PCR, URINE Routine 05/12/2025 11:33 AM EST Cystitis URINALYSIS, COMPLETE, WITH REFLEX TO CULTURE Routine 05/12/2025 11:30 AM EST Cystitis TSH W/REFLEX TO FT4 Routine 05/12/2025 1 1:21 AM EST Cystitis CBC Routine 05/12/2025 11:21 AM EST Cystitis T3, FREE Routine 05/12/2025 11:21 AM EST Cystitis T4, FREE Routine 05/12/2025 11:21 AM EST Cystitis HEPATIC FUNCTION PANEL Routine 05/12/2025 11:21 AM EST Cystitis documented in this encounter Results * Chlamydia/N. Gonorrhoeae, PCR, Urine (05/12/2025 11:33 AM EST) CT PCR, Urine NOT DETECTED Not Detect. [facility] Comment:A not detected test result does not exclude the possibilityof infection because test results can be affected byimproper specimen collection, concurrent antibiotic therapy,or the number of organisms in the specimen which may bebelow the sensitivity of the test. As with many diagnostictests, results from the Xpert CT/NG assay should beinterpreted in conjunction with other laboratory andclinical data available to the clinician.The Xpert CT/NG assay should not be used for the evaluationof suspected sexual abuse or for other medico-legalindications. Additional testing is recommended in anycircumstance when false positive or false negative resultscould lead to adverse medical, social or psychologicalconsequences. NG PCR, Urine NOT DETECTED Not Detect. [facility] Comment:A not detected test result does not exclude the possibilityof infection because test results can be affected byimproper specimen collection, concurrent antibiotic therapy,or the number of organisms in the specimen which may bebelow the sensitivity of the test. As with many diagnostictests, results from the Xpert CT/NG assay should beinterpreted in conjunction with other laboratory andclinical data available to the clinician.The Xpert CT/NG assay should not be used for the evaluationof suspected sexual abuse or for other medico-legalindications. Additional testing is recommended in anycircumstance when false positive or false negative resultscould lead to adverse medical, social or psychologicalconsequences. Urine (Urine, Random) 05/12/2025 11:33 AM EST 05/12/2025 3:12 PM EST us Otilia Quiñones MD LAB URINE ORDERABLES Final Re sult [facility] [address] [place] [phone] * (ABNORMAL) Urinalysis, Complete, with Reflex to Culture (05/12/2025 11:30 AM EST) Color Urine Dark Yellow [facility] Appearance Urine Clear [facility] PH 5.0 5.0 - 9.0 [facility] Glucose Urine UA Negative Negative mg/dL [facility] Urine Blood Negative Negative [facility] Specific Lucas - Urine 1.020 1.005 - 1.025 [facility] Urine Protein Negative Neg-Trace mg/dL [facility] Urine Ketones Negative Negative mg/dL [facility] Nitrite Urine Negative Negative [facility] Leukocyte Esterase Urine Trace(A) Negative [facility] RBC Urine 0-2 0 - 2 /HPF [facility] Urine WBC 0-5 0 - 5 /HPF [facility] Urine Squamous Epithelial Cell 11-20 0 - 2 /HPF [facility] Urine Bacteria 1+ None Seen [facility] Hyaline Casts, Urine 0-2 0 - 2 /LPF [facility] Urine 05/12/2025 11:3 0 AM EST 05/12/2025 3:11 PM EST Narrative [facility] - 05/12/2025 3:25 PM EST [id number], Clean Catch us Otilia Quiñones MD LAB URINE ORDERABLES Final Re sult Performing Organization Address [facility] Co de Phone Number [facility] [address] [place] [phone] [phone] * (ABNORMAL) T3, Free (05/12/2025 11:21 AM EST) T3, Free 5.5(A) 2.3 - 4.2 pg/mL [facility] Comment:THIS TEST WAS PERFOR MED AT:[email or web address] [place] [id number] NASSAR MD 05/12/2025 11:2 1 AM EST 05/12/2025 3:18 PM EST us Generic External Data Provider LAB BLOOD ORDERAB LES Final Result [facility] [address] [place] [phone] * T4, Free (05/12/2025 11:21 AM EST) Free T4 (Free Thyroxine) 0.85 0.71 - 1.85 ng/dL [facility] 05/12/2025 11:2 1 AM EST 05/12/2025 3:18 PM EST Generic External Data Provider LAB BLOOD ORDERAB LES Final Result Performing Organization Address [facility] Co de Phone Number [facility] [address] [place] [phone] * (ABNORMAL) TSH with Reflex to Free T4 (05/12/2025 11:21 AM EST) Pathologist [facility] TSH reflex Free T4 <0.01(L) 0.32 - 4.0 uIU/mL [facility] 05/12/2025 11:2 1 AM EST 05/12/2025 3:18 PM EST Generic External Data Provider LAB BLOOD ORDERAB LES Final Result Performing Organization Address [facility] Co de Phone Number [facility] [address] [place] [phone] * (ABNORMAL) Hepatic Function Panel (05/12/2025 11:21 AM EST) Bilirubin, Total 1.3(H) 0.0 - 1.0 mg/dL [facility] Bilirubin, Direct 0.6(H) 0.0 - 0.5 mg/dL [facility] Aspartate Amino Transferase 58(H) 5 - 31 U/L [facility] Alanine Aminotransferase 89(H) 0 - 31 U/L [facility] Total Protein 7.3 6.5 - 8.0 g/dL [facility] Albumin Level 4.2 3.5 - 5.0 g/dL [facility] Alkaline Phosphatase 209(H) 39 - 117 U/L [facility] 05/12/2025 11:2 1 AM EST 05/12/2025 3:18 PM EST us Generic External Data Provider LAB BLOOD ORDERAB LES Final Result Performing Organization Address [facility]/ZIP Co de Phone Number [facility] [address] [place] [phone] * (ABNORMAL) CBC (05/12/2025 11:21 AM EST) White Blood Count 6.0 4.8 - 10.8 X10*3/uL [facility] Red Blood Count 4.87 4.20 - 5.50 X10*6/uL [facility] Hemoglobin 11.4(L) 12.0 - 16.0 g/dl [facility] Hematocrit 36.4(L) 37.0 - 47.0 % [facility] Mean Corpuscular Volume 74.7(L) 80.0 - 98.0 fL [facility] Mean Corpuscular Hemoglobin 23.4(L) 27.0 - 33.0 pg [facility] Mean Corpuscular HGB Conc 31.3 31.0 - 35.0 g/dl [facility] Red Cell Distribution Width 13.5 11.0 - 16.0 % [facility] Platelet Count 219 160 - 400 X10*3/uL [facility] Mean Platelet Volume 12.7(H) 9.4 - 12.3 fL [facility] NRBC Pct Auto 0.0 0.0 - 0.2 /100WBC [facility] NRBC Abs Auto 0.000 0.0 - 0.012 X10*3/uL [facility] 05/12/2025 11:2 1 AM EST 05/12/2025 3:18 PM EST us Generic External Data Provider LAB BLOOD ORDERAB LES Final Result [facility] [address] [place] [phone] [phone] documented in this encounter Visit Diagnoses Diagnosis Cystitis- Primary Unspecified cystitis documented in this encounter Additional Health Concerns Assessment Noted Time PHQ-9 Depression Total Score: 0 07/03/19 24 10:45 AM EST documented as of this encounter Care Teams Cnc Machine Programmer Relationship Specialty Start Date End Date Otilia Quiñones MD [address] [place] [phone] PCP - General Family Medicine 09/15/13 documented as of this encounter
--- OUTSIDE RECORDS SUMMARY | 2025-05-15 23:53 | XMS_ITS | Encounter Summary ---
Author Organization [employer] Address [address] [place] [address] 7 [place] [address] Care Team Providers Care Extension Service Agent Name Role Phone Otilia Quiñones MD Primary Care Provider [phone] Encounter Details Date Type Department Care Team (Latest Contact Info) Description 08/25/2021 Abstract [facility] CONVERSIONS Dental, Provider, DDS Social History Tobacco [...] Description 06/11/2025 10:00 AM EST Office Visit [facility] ADULT DENTAL [address] [place] [address] Yoshi Sandoval, DMD [address] [place] [address] documented as of this encounter Visit Diagnoses Not on filedocumented in this encounter Care Teams Extension Service Agent Relationship Specialty Start Date End Date Otilia Quiñones MD [address] [place] [address] PCP - General Family Medicine 09/15/13 documented as of this encounter
--- OUTSIDE RECORDS SUMMARY | 2025-05-15 23:53 | XMS_ITS | Clinical Summary ---
Author Organization [email or web address] Address [address] [place] [address] Care Team Providers Care Optomechanical Engineer Name Role Phone Otilia Quiñones MD Primary Care Provider [phone] Allergies No known active allergies Medications hydrOXYzine [...] Additional Information Patient not taking.Reported on 02/03/2025 Ferrous Sulfate (iron) 325 (65 Fe) MG tabletIndication s:RBC microcytosis TAKE ONE TABLET BY MOUTH EVERY DAY WITH BREAKFAST. DO NOT BREAK, CRUSH, DISSOLVE OR CHEW. 90 tablet 01/29/20 25 Active atenolol (Tenormin) 25 MG tablet Take 25 mg by mouth Once per day. Active cloNIDine (Catapres) 0.2 MG tablet TAKE ONE TABLET EVERY NIGHT AT BEDTIME 30 tablet 3 5 11:53 AM EST 11/24/20 25 Active cloNIDine (Catapres) 0.2 MG tablet Take 1 tab orally qhs 30 tablet 3 12/11/19 25 2024 Discontinued Active Problems Problem Noted [...] TTE with noted elevated ProBNP I called [facility] to inform that pt is going ,discuss w pt option to go to [facility] to make sure she can be seen by [facility] but pt prefers to go to [facility]. -Pt had referred already by previous provider for NM thyroid scan -has apt 04/2025 and referred for [facility] -has apt 05/2025 --[facility] will help calling [facility] office to request STAT evaluation on Saturday [...] Encounters Date Type Department Care Team Description 05/15/2025 Orders Only GENERIC EXTERNAL DATA DEPARTMENT Provider, Generic External Data 05/12/2025 Orders Only [facility] [address] [place] [phone] Otilia Quiñones MD Cystitis (Primary Dx) 04/26/2025 Results Follow-Up [facility] [address] [place] [address] Henrique Whittaker MD Culture, Throat 04/26/2025 Refill [facility] [address] [place] [address] Otilia Quiñones MD 04/23/2025 1:20 PM EST Office Visit [facility] [address] [place] [phone] Rambo Johnson MD Sore throat (Primary Dx) 04/23/2025 Results Follow-Up [facility] [address] [place] [address] Henrique Whittaker MD NM Thyroid Uptake 04/23/2025 Travel 04/23/2025 Orders Only [facility] [address] [place] [address] Henrique Whittaker MD 04/22/2025 Telephone [facility] [address] [place] [phone] Otilia Quiñones MD [facility] Request for Updated [place] Order 04/19/2025 Orders Only [facility] External Provider, [facility] Hyperthyroidism (Primary Dx) 04/08/2025 Orders Only [facility] External Provider, [facility] 03/30/2025 11:00 AM EDT Office Visit [facility] [address] [place] [address] Otilia Quiñones MD Hyperthyroidism (Primary Dx); Sore throat; Graves' disease with exophthalmos 03/30/2025 Travel 03/29/2025 Telephone [facility] [address] [place] [address] Otilia Quiñones MD 03/28/2025 Telephone [facility] [address] [place] [phone] Kristi Calderon NP 03/27/2025 9:40 AM EDT Office Visit [facility] [address] [place] [phone] Constance Myers MD Graves disease (Primary Dx); Sore throat; Fever and chills; Exophthalmos of both eyes; Graves' disease with exophthalmos 03/27/2025 Orders Only GENERIC EXTERNAL DATA DEPARTMENT Provider, Generic External Data 03/27/2025 Travel 03/22/2025 Telephone [facility] [address] [place] [address] Otilia Quiñones MD 03/22/2025 Orders Only GENERIC EXTERNAL DATA DEPARTMENT Provider, Generic External Data 03/15/2025 Results Follow-Up [facility] [address] [place] [address] Darling Toussaint, KATHRYN Albumin, Random Urine W/Creatinine, Comprehensive Metabolic Panel, TSH W/Reflex to FT4, Additional followed-up results: 2 03/11/2025 Orders Only [facility] [address] [place] [address] Henrique Whittaker MD Hyperthyroidism (Primary Dx); Transaminitis 03/11/2025 Orders Only [facility] [address] [place] [address] Henrique Whittaker MD 03/09/2025 1:20 PM EDT Office Visit [facility] [address] [place] [address] Henrique Whittaker MD Edema, lower extremity (Primary Dx); Sore throat 03/09/2025 10:30 AM EDT Office Visit [facility] [address] [place] [address] Yoshi Sandoval DMD Dental caries (Primary Dx); Gingivitis 03/09/2025 Travel 03/08/2025 Results Follow-Up [facility] [address] [place] [address] Chest w/ Contrast 02/17/2025 Results Follow-Up [facility] [address] [place] [address] Otilia Quiñones MD CT Soft Tissue Neck w/ Contrast 02/17/2025 Orders Only [facility] External Provider, [facility] from Last 3 Months Immunizations Immunization Administration [...] Sign Reading Time Taken Comments Blood Pressure 115/69 04/23/2025 1:33 PM EST Pulse 69 04/23/2025 1:33 PM EST Temperature 36.6 C (97.8 F) 04/23/2025 1:33 PM EST Respiratory Rate 17 04/23/2025 1:33 PM EST Oxygen Saturation 98% 04/23/2025 1:33 PM EST Inhaled Oxygen Concentration - - Weight 67.4 kg (148 lb 9.6 oz) 04/23/2025 1:33 P M EST Height 162.6 cm (5' 4 ) 04/23/2025 1:33 PM EST Body Mass Index 25.51 04/23/2025 1:33 PM EST Plan of Treatment Upcoming Encounters Date Type Department Care Team (Late st Contact Info) Description 06/11/2025 10:00 AM EST Office Visit [facility] [address] [place] [address] Yoshi Sandoval, DMD [address] [place] [address] Health Maintenance Due Date Last Done Comments [...] 24 Disability Screening 02/10/2026 02/10/2025 Tobacco Screening 04/23/2026 04/23/2025 Zoster Vaccines (1 of 2) 2026 DTaP/Tdap/Td [...] Associated Diagnosis Comments US ABDOMEN LIMITED Routine 05/15/2025 10 :35 PM EST LIPASE Routine 05/15/2025 8:52 PM EST MAGNESIUM Routine 05/15/2025 8:52 PM EST COMPREHENSIVE METABOLIC PANEL Routine 05/15/2025 8:52 PM EST URINALYSIS, COMPLETE, WITH REFLEX TO CULTURE Routine 05/15/2025 8:52 PM EST CBC WITH AUTO DIFFERENTIAL Routine 05/15/2025 8:52 PM EST CHLAMYDIA/TRICHOMONAS/ NEISSERIA GONORRHOEAE, PCR, URINE Routine 05/12/2025 11:33 AM EST Cystitis URINALYSIS, COMPLETE, WITH REFLEX TO CULTURE Routine 05/12/2025 11:30 AM EST Cystitis T3, FREE Routine 05/12/2025 11:21 AM EST Cystitis T4, FREE Routine 05/12/2025 11:21 AM EST Cystitis TSH W/REFLEX TO FT4 Routine 05/12/2025 1 1:21 AM EST Cystitis HEPATIC FUNCTION PANEL Routine 11:21 AM EST Cystitis CBC Routine 05/12/2025 11:21 AM EST Cystitis POC FISCHER ID NOW STREP A Routine 04/23/2025 1:57 PM EST Sore throat POCT RAPID COVID ANTIGEN Routine 04/23/2025 1:57 PM EST Sore throat POCT INFLUENZA B (ID NOW RAPID MOLECULAR) Routine 04/23/2025 1:57 PM EST Sore throat POCT INFLUENZA A (ID NOW RAPID MOLECULAR) Routine 04/23/2025 1:57 PM EST Sore throat CULTURE, THROAT Routine 04/23/2025 1:57 PM EST Sore throat NM THYROID UPTAKE Routine 04/22/2025 10: 30 AM EST STRESS TEST WITH MYOCARDIAL PERFUSION Routine 04/19/2025 [...] W CONTRAST Routine 02/17/2025 12:31 PM EDT PERIODIC ORAL EVALUATION - ESTABLISHED PATIENT Routine 02/03/2025 9:30 AM EDT Partial edentulism, unspecified edentulism class BITEWING - SINGLE RADIOGRAPHIC IMAGE Routine 01/12/2025 [...] Health Maintenance Results * US Abdomen Limited (05/15/2025 10:35 PM EST) Anatomical Region Laterality Modality Abdomen Ultrasound 05/15/2025 10:3 5 PM EST Narrative 05/15/2025 10:36 PM EST [place] [address] Ultrasound Report Signed Patient: Geovanna Hobbs MR#: [id number] 73 : 1975 Acct:[id number] Age/Sex: 49 / F ADM Date: 05/15/25 Loc: .ED Attending Dr: Ordering Physician: Kyleigh Wolf PA-C Date of Service: 05/15/25 Procedure(s): US abdomen limited Accession Number(s): [id number] cc: Otilia Quiñones MD; Kyleigh Wolf PA-C Reason for Exam: pain, gallbladder, CBD CLINICAL HISTORY: pain, gallbladder, CBD US abdomen limited Comparison: [place] - US ABDOMEN LIMITED - 09/17/2024 02:01 PM EDT Findings: The liver is normal in size and echotexture. There is no intrahepatic bile duct dilatation. The common duct is 4 mm in diameter. The gallbladder is normal. There is no sonographic Marcelo sign. The main portal vein is antegrade. No ascites. IMPRESSION: No cholelithiasis. This document has been electronically signed by: Roderick Bar MD on 05/15/2025 22:35:19 Dictated By: Roderick Bar MD Signed By: <Electronically signed by Roderick Bar MD in OV> 05/15/252234 DD/ 34 TD/TT: 05/15/252234 Director Of Product Management: Procedure Note Donotuseinterpreter, Image - 05/15/2025 [place] [address] Ultrasound Report Signed Patient: Geovanna HobbsMR#: [id number] 73 : 1975Acct:[id number] Age/Sex: 49 / FADM Date: 05/15/25 Loc: .ED Attending Dr: Ordering Physician: Kyleigh Wolf PA-C Date of Service: 05/15/25 Procedure(s): US abdomen limited Accession Number(s): [id number] cc: Otilia Quiñones MD; Kyleigh Wolf PA-C Reason for Exam: pain, gallbladder, CBD CLINICAL HISTORY: pain, gallbladder, CBD US abdomen limited Comparison: [place]/SR - US ABDOMEN LIMITED - 09/17/2024 02:01 PM EDT Findings: The liver is normal in size and echotexture. There is no intrahepatic bile duct dilatation. The common duct is 4 mm in diameter. The gallbladder is normal. There is no sonographic Marcelo sign. The main portal vein is antegrade. No ascites. IMPRESSION: No cholelithiasis. This document has been electronically signed by: Roderick Bar MD on 05/15/2025 22:35:19 Dictated By: Roderick Bar MD Signed By: <Electronically signed by Roderick Bar MD in OV> 05/15/252234 DD/ 34 TD/TT: 05/15/252234 Director Of Product Management: us [facility] External Provider IMG US PROCEDURES Edited Result - Final * (ABNORMAL) Urinalysis, Complete, with Reflex to Culture (05/15/2025 8:52 PM EST) Only the most recent of2 resultswithin the time period is included. Color Urine [place](A) [facility] Appearance Urine Clear [facility] PH 6.0 5.0 - 9.0 [facility] Glucose Urine UA Negative Negative mg/dL [facility] Urine Blood Negative Negative [facility] Specific [place] - Urine 1.020 1.005 - 1.025 [facility] Urine Protein Negative Neg-Trace mg/dL [facility] Urine Ketones Negative Negative mg/dL [facility] Nitrite Urine Positive(A) Negative [facility] Leukocyte Esterase Urine Small (1+)(A) Negative [facility] RBC Urine 3-5(A) 0 - 2 /HPF [facility] Urine WBC 0-5 0 - 5 /HPF [facility] Urine Squamous Epithelial Cell 6-10 0 - 2 /HPF [facility] CALCIUM OXALATE CRYSTAL, UR Present [facility] Urine Bacteria 1+ None Seen [facility] Hyaline Casts, Urine 0-2 0 - 2 /LPF [facility] 05/15/2025 8:52 PM EST 05/15/2025 8:55 PM EST Narrative [facility] - 05/15/2025 9:17 PM EST [id number], Clean Catch us Generic External Data Provider LAB URINE ORDERAB LES Final Result [facility] [address] [place] [phone] * (ABNORMAL) CBC auto differential (05/15/2025 8:52 PM EST) Only the most recent of3 resultswithin the time period is included. White Blood Count 4.4(L) 4.8 - 10.8 X10*3/uL [facility] Red Blood Count 4.70 4.20 - 5.50 X10*6/uL [facility] Hemoglobin 10.9(L) 12.0 - 16.0 g/dl [facility] Hematocrit 34.8(L) 37.0 - 47.0 % [facility] Mean Corpuscular Volume 74.0(L) 80.0 - 98.0 fL [facility] Mean Corpuscular Hemoglobin 23.2(L) 27.0 - 33.0 pg [facility] Mean Corpuscular HGB Conc 31.3 31.0 - 35.0 g/dl [facility] Red Cell Distribution Width 13.6 11.0 - 16.0 % [facility] Platelet Count 234 160 - 400 X10*3/uL [facility] Mean Platelet Volume 11.7 9.4 - 12.3 fL [facility] Neutrophils Percent Auto 62.2 45 - 73 % [facility] Imm Gran Pct Auto 0.2 0.0 - 0.4 % [facility] Lymphocytes Percent Auto 23.1 20 - 40 % [facility] Monocytes Percent Auto 9.5 2 - 11 % [facility] Eosinophils Percent Auto 4.5(H) 0 - 4 % [facility] Basophils Percent Auto 0.5 0 - 2 % [facility] NRBC Pct Auto 0.0 0.0 - 0.2 /100WBC [facility] Neutrophils Absolute Auto 2.7 2.0 - 8.3 x10*3/uL [facility] Imm Gran Abs Auto 0.01 0.00 - 0.03 X10*3/uL [facility] Lymphocytes Absolute Auto 1.0(L) 1.2 - 4.9 X10*3/uL [facility] Monocytes Absolute Auto 0.4 0.1 - 1.2 X10*3/uL [facility] Eosinophils Absolute Auto 0.2 0.0 - 0.4 X10*3/uL [facility] Basophils Absolute Auto 0.0 0.0 - 0.2 X10*3/uL [facility] NRBC Abs Auto 0.000 0.0 - 0.012 X10*3/uL [facility] 05/15/2025 8:52 PM EST 05/15/2025 8:55 PM EST us Generic External Data Provider LAB BLOOD ORDERAB LES Final Result Performing Organization Address [facility] Co de Phone Number [facility] [address] [place] [phone] * Magnesium (05/15/2025 8:52 PM EST) Magnesium 1.8 1.6 - 2.6 mg/dL [facility] 05/15/2025 8:52 PM EST 05/15/2025 8:55 PM EST Generic External Data Provider LAB BLOOD ORDERAB LES Final Result Performing Organization Address [facility] Phone Number [facility] [address] [place] [phone] Lipase (05/15/2025 8:52 PM EST) Pathologist [facility] Lipase 72 8 - 78 U/L [facility] 05/15/2025 8:52 PM EST 05/15/2025 8:55 PM EST Generic External Data Provider LAB BLOOD ORDERAB LES Final Result Performing Organization Address [facility] Phone Number [facility] [address] [place] [address] [phone] * (ABNORMAL) Comprehensive Metabolic Panel (05/15/2025 8:52 PM EST) Only the most recent of3 resultswithin the time period is included. Sodium 139 135 - 145 mmol/L [facility] Potassium 3.7 3.3 - 5.1 mmol/L [facility] Chloride 104 96 - 108 mmol/L [facility] Carbon Dioxide 28 22 - 29 mmol/L [facility] Anion Gap 11(L) 12 - 20 [facility] Urea Nitrogen (BUN) 8(L) 9 - 16 mg/dL [facility] Creatinine, Serum 0.51 0.5 - 1.4 mg/dL [facility] Creatinine Clr Calc Pharmacy 116.5 [facility] Comment:Provided height and weight: 162.56 cm,64.6 kg.eGFR (calculated from the MDRD study equation) and eCrCl(calculated from the Cockcroft-Gault equation) are based ondifferent parameters and may not yield comparable results.If eCrCl result is absurd, please check patient'sheight/weight. Estimated Glomerular Filt Rate >60 [facility] Comment:Chronic Kidney Disea se: Estimated GFR < 60 mL/min/1.54j5Oyrvpt Kidney Disease: Estimated GFR < 15 mL/min/1.73m2 Glucose 87 60 - 115 mg/dL [facility] Calcium 9.9 8.4 - 10.2 mg/dL [facility] Bilirubin, Total 0.8 0.0 - 1.0 mg/dL [facility] Aspartate Amino Transferase 71(H) 5 - 31 U/L [facility] Alanine Aminotransferase 84(H) 0 - 31 U/L [facility] Total Protein 7.5 6.5 - 8.0 g/dL [facility] Albumin Level 4.3 3.5 - 5.0 g/dL [facility] Alkaline Phosphatase 289(H) 39 - 117 U/L [facility] 05/15/2025 8:52 PM EST 05/15/2025 8:55 PM EST us Generic External Data Provider LAB BLOOD ORDERAB LES Final Result [facility] [address] [place] [address] [phone] * Chlamydia/N. Gonorrhoeae, PCR, Urine (05/12/2025 11:33 AM EST) CT PCR, Urine NOT DETECTED Not Detect. [facility] Comment:A not detected test result [...] NG PCR, Urine NOT DETECTED Not Detect. [facility] Comment:A not detected test result [...] MD LAB URINE ORDERABLES Final Re sult [facility] [address] [place] [address] [phone] * (ABNORMAL) TSH with Reflex to Free T4 (05/12/2025 11:21 AM EST) Only the most recent of3 resultswithin the time period is included. TSH reflex Free T4 <0.01(L) 0.32 - 4.0 uIU/mL [facility] 05/12/2025 11:2 1 AM EST 05/12/2025 3:18 PM EST us Generic External Data Provider LAB BLOOD ORDERAB LES Final Result Performing Organization Address City/[facility]/ZIP Co de Phone Number [facility] [address] [place] [phone] * (ABNORMAL) CBC (05/12/2025 11:21 AM EST) White Blood Count 6.0 4.8 - 10.8 X10*3/uL [facility] Red Blood Count 4.87 4.20 - 5.50 X10*6/uL [facility] Hemoglobin 11.4(L) 12.0 - 16.0 g/dl [facility] Hematocrit 36.4(L) 37.0 - 47.0 % [facility] Mean Corpuscular Volume 74.7(L) 80.0 - 98.0 fL [facility] Mean Corpuscular Hemoglobin 23.4(L) 27.0 - 33.0 pg [facility] Mean Corpuscular HGB Conc 31.3 31.0 - 35.0 g/dl [facility] Red Cell Distribution Width 13.5 11.0 - 16.0 % [facility] Platelet Count 219 160 - 400 X10*3/uL [facility] Mean Platelet Volume 12.7(H) 9.4 - 12.3 fL [facility] NRBC Pct Auto 0.0 0.0 - 0.2 /100WBC [facility] NRBC Abs Auto 0.000 0.0 - 0.012 X10*3/uL [facility] 05/12/2025 11:2 1 AM EST 05/12/2025 3:18 PM EST Generic External Data Provider LAB BLOOD ORDERAB LES Final Result [facility] [address] [place] [phone] * (ABNORMAL) T3, Free (05/12/2025 11:21 AM EST) T3, Free 5.5(A) 2.3 - 4.2 pg/mL [facility] Comment:THIS TEST WAS PERFOR MED AT:[id number] [place] [id number] NASSAR MD 05/12/2025 11:2 1 AM EST 05/12/2025 3:18 PM EST us Generic External Data Provider LAB BLOOD ORDERAB LES Final Result Performing Organization Address City/[facility] Co de Phone Number [facility] [address] [place] [phone] * T4, Free (05/12/2025 11:21 AM EST) Only the most recent of3 resultswithin the time period is included. Free T4 (Free Thyroxine) 0.85 0.71 - 1.85 ng/dL [facility] 05/12/2025 11:2 1 AM EST 05/12/2025 3:18 PM EST Generic External Data Provider LAB BLOOD ORDERAB LES Final Result Performing Organization Address [facility] de Phone Number [facility] [address] [place] [phone] * (ABNORMAL) Hepatic Function Panel (05/12/2025 11:21 AM EST) Bilirubin, Total 1.3(H) 0.0 - 1.0 mg/dL [facility] Bilirubin, Direct 0.6(H) 0.0 - 0.5 mg/dL [facility] Aspartate Amino Transferase 58(H) 5 - 31 U/L [facility] Alanine Aminotransferase 89(H) 0 - 31 U/L [facility] Total Protein 7.3 6.5 - 8.0 g/dL [facility] Albumin Level 4.2 3.5 - 5.0 g/dL [facility] Alkaline Phosphatase 209(H) 39 - 117 U/L [facility] 05/12/2025 11:2 1 AM EST 05/12/2025 3:18 PM EST Generic External Data Provider LAB BLOOD ORDERAB LES Final Result Performing Organization Address [facility] Co de Phone Number [facility] [address] [place] [phone] * Influenza B (ID NOW Rapid Molecular) (04/23/2025 1:57 PM EST) Only the most recent of2 resultswithin the time period is included. [facility] Influenza B Negative Negative, Indeterminate [facility] Swab 04/23/2025 1:57 PM EST Rambo Johnson MD POINT OF CARE TEST ENTER/EDIT OR DERABLES Final Result Performing Organization Address [facility] Phone Number [facility] [address] [place] [phone] * Influenza A (ID NOW Rapid Molecular) (04/23/2025 1:57 PM EST) Only the most recent of2 resultswithin the time period is included. Pathologist [facility] Influenza A Negative Negative, Indeterminate [facility] Swab 04/23/2025 1:57 PM EST Rambo Johnson MD POINT OF CARE TEST ENTER/EDIT OR DERABLES Final Result Performing Organization Address [facility] Co de Phone Number [facility] [address] [place] [phone] * POCT ID NOW Rapid Strep A manually resulted (04/23/2025 1:57 PM EST) Only the most recent of2 resultswithin the time period is included. Pathologist [facility] Rapid Strep A Screen Negative Negative, None Detected Swab 04/23/2025 1:57 PM EST us Rambo Johnson MD POINT OF CARE TEST ENTER/EDIT OR DERABLES Final Result * POCT Rapid COVID Ag (04/23/2025 1:57 PM EST) Rapid COVID Ag Negative Swab 04/23/2025 1:57 PM EST us Rambo Johnson MD POINT OF CARE TEST ENTER/EDIT OR DERABLES Final Result * Culture, Throat (04/23/2025 1:57 PM EST) Throat Structure of anterior region of neck / Unknown 04/23/2025 1:57 PM EST 04/23/2025 5:07 PM EST Comment:Throat Narrative [facility] - 04/25/2025 7:47 AM EST Throat Culture No Group A Beta-hemolytic Streptococci isolated. Specimen Source: Throat Rambo Johnson MD LAB MICROBIOLOGY - GENERAL ORDER JOSÉ MIGUEL Final Result Performing Organization Address City/State/[facility] Co de Phone Number [facility] [address] [place] [phone] * NM Thyroid Uptake (04/22/2025 10:30 AM EST) Anatomical Region Laterality Modality Head and Neck Nuclear Medicine 04/22/2025 10:3 0 AM EST Narrative 04/23/2025 11:40 AM EST [address] [address] Nuclear Medicine Report Signed Patient: Geovanna Hobbs MR#: [id number] 73 : 1975 Acct:[id number] Age/Sex: 49 / F ADM Date: 04/23/25 Loc: [place] Attending Dr: Henrique Whittaker MD Ordering Physician: Henrique Whittaker MD Date of Service: 04/22/25 Procedure(s): NM thyroid w uptake Accession Number(s): [id number] cc: Henrique Whittaker MD; Otilia Quiñones MD Reason for Exam: HYPERTHYRODISM EXAMINATION: NM THYROID IMAGING AND UPTAKE CLINICAL INFORMATION: HYPERTHYROIDISM COMPARISON: Correlation is made with a CT of the neck with contrast dated 02/17/2025. TECHNIQUE: Following the oral administration of 287 microcuries of I-123 sodium iodide, thyroid uptake was performed and expressed as a percentage of the administrated dose. Gamma scintillation camera images of the thyroid in the anterior and right and left anterior oblique views were obtained using a pinhole collimator following the administration of 10 mCi Tc-99m pertechnetate. FINDINGS: There is a normal homogeneous distribution of activity throughout both thyroid lobes. No foci of abnormal increased or decreased uptake are identified. There is apparent middle lobe. The uptake is 67.3% at 3 hours and 57.2% at 24 hours. NM/NM thyroid w uptake IMPRESSION: No focal thyroid abnormality is seen. Markedly elevated uptake at 3 hours and 24 hours, compatible with Graves' disease. Electronically signed by: Fredy Nino MD 04/23/2025 11:37 AM [facility] Dictated By: Fredy Nino MD Signed By: <Electronically signed by Fredy Nino MD in OV> 04/23/25 1137 DD/ 1030 TD/TT: 04/23/25 1120 Director Of Product Management: Procedure Note Donotuseinterpreter, Image - 04/23/2025 [place] [address] Nuclear Medicine Report Signed Patient: Geovanna HobbsMR#: [id number] 74 : 1975Acct:[id number] Age/Sex: 49 / FADM Date: 04/23/25 Loc: HONEHA Attending Dr: Henrique Whittaker MD Ordering Physician: Henrique Whittaker MD Date of Service: 04/22/25 Procedure(s): NM thyroid w uptake Accession Number(s): [id number] cc: Henrique Whittaker MD; Otilia Quiñones MD Reason for Exam: HYPERTHYRODISM EXAMINATION: NM THYROID IMAGING AND UPTAKE CLINICAL INFORMATION: HYPERTHYROIDISM COMPARISON: Correlation is made with a CT of the neck with contrast dated 02/17/2025. TECHNIQUE: Following the oral administration of 287 microcuries of I-123 sodium iodide, thyroid uptake was performed and expressed as a percentage of the administrated dose. Gamma scintillation camera images of the thyroid in the anterior and right and left anterior oblique views were obtained using a pinhole collimator following the administration of 10 mCi Tc-99m pertechnetate. FINDINGS: There is a normal homogeneous distribution of activity throughout both thyroid lobes. No foci of abnormal increased or decreased uptake are identified. There is apparent middle lobe. The uptake is 67.3% at 3 hours and 57.2% at 24 hours. NM/NM thyroid w uptake IMPRESSION: No focal thyroid abnormality is seen. Markedly elevated uptake at 3 hours and 24 hours, compatible with Graves' disease. Electronically signed by: Fredy Nino MD 04/23/2025 11:37 AM EST Dictated By: Fredy Nino MD Signed By: <Electronically signed by Fredy Nino MD in OV> 04/23/25 1137 DD/ 1030 TD/TT: 04/23/25 1120 Director Of Product Management: us Henrique Whittaker MD [facility] PROCEDURES Final Res ult * Stress test with myocardial perfusion (04/19/2025 9:19 AM EST) 04/19/2025 9:19 AM EST [facility] IMAGING - 04/21/2025 11:21 AM EST [place] [address] Nuclear Medicine Report Signed Patient: Geovanna Hobbs MR#: [id number] 73 : 1975 Acct:[id number] Age/Sex: 49 / F ADM Date: 04/19/25 Loc: HO.CARD Attending Dr: Reinaldo Bowie NP Ordering Physician: Reinaldo Bowie NP Date of Service: 04/19/25 Procedure(s): NM cardiolite stress test Accession Number(s): [id number] cc: Otilia Quiñones MD; Reinaldo Bowie NP [...] by: Ken Scott MD 04/21/2025 11:18 AM [facility] [place] Dictated By: Ken Scott MD Signed By: <Electronically signed by Ken Scott MD in OV> 04/21/25 1118 DD/ 0919 TD/TT: 04/20/25 1150 Director Of Product Management: Procedure Note Donotuseinterpreter, Image - 04/21/[address] [address] Nuclear Medicine Report Signed Patient: Geovanna HobbsMR#: [id number] 74 : 1975Acct:[id number] Age/Sex: 49 / FADM Date: 04/19/25 Loc: ALEJANDRA Attending Dr: Reinaldo Bowie NP Ordering Physician: Reinaldo Bowie NP Date of Service: 04/19/25 Procedure(s): DC cardiolite stress test Accession Number(s): [id number] cc: Otilia Quiñones MD; Reinaldo Bowie NP [...] diaphragmatic attenuation artifact and adjacent subdiaphragmatic uptake. DC/DC cardiolite stress test Impression: 1. Myocardial perfusion imaging study shows reversible inferior defect, probably artifactual. Less likely to represent ischemia. 2. Gated LVEF is 72% during stress and 57% during rest. 3. Transient ischemic dilatation not present. EKG component of the test reported separately. Electronically signed by: Ken Scott MD 04/21/2025 11:18 AM EST RP Dictated By: Ken Scott MD Signed By: <Electronically signed by Ken Scott MD inOV> 04/21/25 1118 DD/ 0919 TD/TT: 04/20/25 1150 Director Of Product Management: us [facility] External Provider CV STRE SS PROCEDURES Final Result [facility] [address] [place] [phone] * XR Chest 1 View (04/08/2025 2:38 PM EST) Anatomical Region Laterality Modality Chest Radiographic Renée ging 04/08/2025 2:38 PM EST Narrative 04/08/2025 2:47 PM EST [address] [address] XRay Report Signed Patient: Geovanna Hobbs MR#: [id number] 73 : 1975 Acct:[id number] Age/Sex: 49 / F ADM Date: 04/08/25 Loc: DESIREE Attending Dr: Reinaldo Bowie NP Ordering Physician: Reinaldo Bowie NP Date of Service: 04/08/25 Procedure(s): XR chest 1V Accession Number(s): [id number] cc: Otilia Quiñones MD; Reinaldo Bowie NP [...] in OV> 04/08/25 1444 DD/ 1438 TD/TT: 04/08/251437 Director Of Product Management: SAM Procedure Note Donotuseinterpreter, Image - 04/08/[address] [address] XRay Report Signed Patient: Geovanna HobbsMR#: [id number] 73 : 1975Acct:[id number] Age/Sex: 49 / FADM Date: 04/08/25 Loc: DESIREE Attending Dr: Reinaldo Bowie NP Ordering Physician: Reinaldo Bowie NP Date of Service: 04/08/25 Procedure(s): XR chest 1V Accession Number(s): [id number] cc: Otilia Quiñones MD; Reinaldo Bowie NP [...] 04/08/2025 02:44 PM EST Dictated By: Jessy Jean MD Signed By: <Electronically signed by Jessy Jean MD in OV> 04/08/25 1444 DD/ 1438 TD/TT: 04/08/251437 Director Of Product Management: SAM [facility] External Provider IMG XR PROCEDURES Final Result * (ABNORMAL) NT-proBNP (04/08/2025 2:22 PM EST) Only the most recent of3 resultswithin the time period is included. NT-proBNP 997.0(H) <300 pg/mL [facility] Comment:Reference Range:Age Group (years) NT-proBNP (pg/ml) InterpretationAll <300 Negative: HF unlikelyFor patients presenting to the ED with clinical suspicion ofnew onset or worsening HF, see below:18 to <50 >299.9 to <450.0 Grayzone: Wxabrjsu65 to 75 >299.9 to <900.0 other causes of>75 >299.9 to <1800.0 NT-proBNP knrzevbyf37 to <50 >449.9 Positive: HF -64 >899.9>75 >1799.9Note: Elevated NT-proBNP levels should be interpreted inthe context of other clinical information. 04/08/2025 2:22 PM EST 04/08/2025 2:22 PM EST us Generic External Data Provider LAB BLOOD ORDERAB LES Final Result [facility] [address] [place] [address] [phone] * (ABNORMAL) Basic Metabolic Panel (04/08/2025 2:22 PM EST) Sodium 141 135 - 145 mmol/L [facility] Potassium 4.3 3.3 - 5.1 mmol/L [facility] Chloride 108 96 - 108 mmol/L [facility] Carbon Dioxide 28 22 - 29 mmol/L [facility] Anion Gap 9(L) 12 - 20 [facility] Urea Nitrogen (BUN) 14 9 - 16 mg/dL [facility] Creatinine, Serum 0.58 0.5 - 1.4 mg/dL [facility] Estimated Glomerular Filt Rate >60 [facility] Comment:Chronic Kidney Disea se: Estimated GFR < 60 mL/min/1.23s3Njfwmh Kidney Disease: Estimated GFR < 15 mL/min/1.73m2 Glucose 122(H) 60 - 115 mg/dL [facility] Calcium 9.6 8.4 - 10.2 mg/dL [facility] 04/08/2025 2:22 PM EST 04/08/2025 2:22 PM EST us Generic External Data Provider LAB BLOOD ORDERAB LES Final Result [facility] [address] [place] [address] [phone] * XR Chest 2 Views (03/27/2025 2:14 PM EDT) Anatomical Region Laterality Modality Chest Radiographic Renée ging 03/27/2025 2:14 PM EDT Narrative 03/27/2025 2:15 PM EDT [place] [address] XRay Report Signed Patient: Geovanna Hobbs MR#: [id number] 73 : 1975 Acct:[id number] Age/Sex: 49 / F ADM Date: 03/27/25 Loc: .ED Attending Dr: Ordering Physician: Augusta Hill NP Date of Service: 03/27/25 Procedure(s): XR chest 2V Accession Number(s): [id number] cc: Otilia Quiñones MD; Augusta Hill NP [...] OV> 03/27/25 1415 DD/ 1414 TD/TT: 03/27/25 141 Director Of Product Management: Procedure Note Donotuseinterpreter, Image - 03/27/2025 [place] [address] XRay Report Signed Patient: Geovanna HobbsMR#: [id number] 73 : 1975Acct:[id number] Age/Sex: 49 / FADM Date: 03/27/25 Loc: HO.ED Attending Dr: Ordering Physician: Augusta Hill NP Date of Service: 03/27/25 Procedure(s): XR chest 2V Accession Number(s): [id number] cc: Otilia Quiñones MD; Augusta Hill NP [...] in OV> 03/27/251414 DD/ 13 TD/TT: 03/27/251413 Director Of Product Management: [facility] External Provider IMG XR PROCEDURES Edited Result - Final * POCT Rapid Covid-19 FISCHER ID NOW (03/27/2025 9:54 AM EDT) [facility] Coronavirus Antigen PCR Negative Negative, Indeterminate, None Detected, Invalid, Specimen unsatisfactory for evaluation, Weakly Positive, 2+ QC Media Lot # [id number] Lot# Expiration Date ,[id number] Swab 03/27/2025 9:5 4 AM EDT Constance Chavez MD POINT OF CARE EARNESTINE T ENTER/EDIT ORDERABLES Final Result * High Sensitivity Troponin I (03/22/2025 12:44 PM EDT) [facility] TROPONIN I HIGH SENSITIVITY 6.5 <3.5 - 17.0 ng/L [facility] Comment:The Fischer high sens itivity Troponin-I results should beused in conjunction with other diagnostic information suchas ECG, clinical observations and information, and patientsymptoms to aid in the diagnosis of MA. 03/22/2025 12:4 4 PM EDT 03/22/2025 12:46 PM EDT us Generic External Data Provider LAB BLOOD ORDERAB LES Final Result Performing Organization Address City/[facility] Co de Phone Number [facility] [address] [place] [phone] * (ABNORMAL) TSI (Thyroid Stimulating Immunoglobulin) (03/22/2025 12:44 PM EDT) Thyroid Stimulating Immunoglobulin 237(A) <140 % baseline [facility] Comment: Thyroid stimulating immunoglobulins (TSI) can [...] hCG concentrationfalls below 40,625 mIU/mL (usually after jrtcyxegcaiik42-sdegv gestation).The analytical performance characteristics of thisassay have been determined by [place]. The modificationshave not been cleared or approved by the FDA. Thisassay has been validated pursuant to the CLIAregulations and is used for clinical purposes.THIS TEST WAS PERFORMED AT:[id number] [place] [address]XHEYRTIJAZMYNE BONNER MD,PHD 03/22/2025 12:4 4 PM EDT 03/22/2025 12:46 PM EDT Generic External Data Provider LAB BLOOD ORDERAB LES Final Result Performing Organization Address City/[facility] Co de Phone Number [facility] [address] [place] [phone] * (ABNORMAL) TRAb (TSH Receptor Binding Antibody) (03/22/2025 12:44 PM EDT) TRAb (TSH Receptor Binding Antibody) 21.44(A) <=2.00 IU/L [facility] Comment:This test was perfor med using the TRAb Antibody ELISAmethod which is standardized against the [facility] centerbInternational Standard 90/672 and is reported inInternational Units (IU/L). The reference rangereported was established specifically for this testmethod.THIS TEST WAS PERFORMED AT:[employer] [id number] [place] [address]EKNJKTF W. MASON,MD,PHD 03/22/2025 12:4 4 PM EDT 03/22/2025 12:46 PM EDT Generic External Data Provider LAB BLOOD ORDERAB LES Final Result Performing Organization Address [facility] de Phone Number [facility] [address] [place] [phone] * (ABNORMAL) Thyroglobulin Panel (03/22/2025 12:44 PM EDT) [facility] Thyroglobulin, LC/MS/MS 14.6 ng/mL [facility] Comment: Reference Range: Intact Thyroid 2.8-40.9 [...] the thyroglobulin by tandem massspectrometry (test code 74893 - Thyroglobulin,LC/MS/MS; or panel test code 05596 - Thyroid Cancer(Thyroglobulin) Monitoring) test is recommendedbecause it has no interference from autoantibodies.For additional information, please refer tohttp://education.Booking[employer].com/faq/PQH837(This link is being provided for informational/educational purposes only.)THIS TEST WAS PERFORMED AT:[employer] [place] [address]GGSPQCYRIL NASSAR MD Thyroglobulin Antibodies 2(A) < or = 1 IU/mL [facility] 03/22/2025 12:4 4 PM EDT 03/22/2025 12:46 PM EDT us Generic External Data Provider LAB BLOOD ORDERAB LES Final Result [facility] [address] [place] [phone] * hCG, Total, Quantitative (03/22/2025 12:44 PM EDT) HCG Quantitative <2 mIU/mL [facility] Comment:Weeks post LMP Appro ximate hCG(Last Menstrual Period) Range (mIU/ml)3 - 4 weeks 9 - 1304 - 5 weeks 75 - 2,6005 - 6 weeks 850 - 20,8006 - 7 weeks 4000 - 100,2007 - 12 weeks 11,500 - 289,89334 - 16 weeks 18,300 - 137,38618 - 29 weeks (2nd trimester) 1,400 - 53,28339 - 41 weeks (3rd trimester) 940 - [...] ORDERAB LES Final Result Performing Organization Address City/[facility] Co de Phone Number [facility] [address] [place] [phone] * Iron And Total Iron Binding Capacity (03/19/2025 1:48 PM EDT) Iron 35 30 - 160 mcg/dL [facility] Total Iron Binding Capacity 241 228 - 428 mcg/dL [facility] Percent Iron Saturation 15 15 - 50 % [facility] Unsaturated Iron Binding 206 ug/dL [facility] Blood Venous blood specimen / Unknown 03/19/2025 1:48 PM EDT 03/19/2025 2:38 PM EDT Henrique Whittaker MD LAB BLOOD ORDERABLES Final Result Performing Organization Address [facility] Co de Phone Number [facility] [address] [place] [phone] * Hepatitis B Surface Antibody, Qualitative (03/19/2025 1:48 PM EDT) Pathologist [facility] ~Hepatitis B Surface Antibody NONREACTIVE Nonreactive [facility] Comment:Nonreactive: < 8.00 mIU/mL Blood Venous blood specimen / Unknown 03/19/2025 1:48 PM EDT 03/19/2025 2:38 PM EDT us Henrique Whittaker MD LAB BLOOD ORDERABLES Final Result Performing Organization Address [facility] Co de Phone Number [facility] [address] [place] [phone] * (ABNORMAL) Prothrombin Time-INR (03/19/2025 1:48 PM EDT) Prothrombin Time 12.6(H) 10.9 - 12.4 SEC [facility] INTERNATIONAL NORM RATIO 1.1 0.9 - 1.1 [facility] Comment:INTERNATIONAL NORMAL IZED RATIO (INR) [...] BLOOD ORDERABLES Final Result Performing Organization Address [facility] Co de Phone Number [facility] [address] [place] [phone] * (ABNORMAL) Reticulocyte Count (03/19/2025 1:48 PM EDT) Reticulocytes Absolute 0.043 0.026 - 0.095 X10*6/uL [facility] Immature Retic Fraction 6.5 3.0 - 15.9 % [facility] Retic HGB Equivalent 26.2(L) 30.0 - 35.0 pg [facility] Reticulocyte Percent 1.0 0.5 - 1.8 % [facility] Blood Venous blood specimen / Unknown 03/19/2025 1:48 PM EDT 03/19/2025 2:38 PM EDT us Henrique Whittaker MD LAB BLOOD ORDERABLES Final Result Performing Organization Address City/[facility]/ZIP Co de Phone Number [facility] [address] [place] [phone] * Ferritin (03/19/2025 1:48 PM EDT) Ferritin 125 10 - 250 ng/mL [facility] Blood Venous blood specimen / Unknown 03/19/2025 1:48 PM EDT 03/19/2025 2:38 PM EDT Henrique Whittaker MD LAB BLOOD ORDERABLES Final Result Performing Organization Address [facility] de Phone Number [facility] [address] [place] [phone] * Albumin, Random Urine W/Creatinine (03/11/2025 1:50 PM EDT) Creatinine, Urine 126.46 mg/dL [facility] Microalbumin Urine 6.0 mg/L [facility] Microalbum Creatinine Ratio Ur 4.7 <30 ug/mg cr [facility] Comment:Albumin/Creatinine R atio Reference Ranges: Normal: < 30 ug/mg creatinine Microalbuminuria: 30 - 300 ug/mg creatinineClinical Albuminuria: > 300 ug/mg creatinine Urine (Urine, Random) 03/11/2025 1:50 PM EDT 03/11/2025 5:48 PM EDT us Henrique Whittaker MD LAB URINE ORDERABLES Final Result Performing Organization Address [facility] de Phone Number [facility] [address] [place] [phone] * T-SPOT??.TB (03/11/2025 1:46 PM EDT) T Spot TB Negative Negative [facility] Comment:A negative test resu lt [...] as aquantitative test. TS PANEL A 0 [facility] TS PANEL B 0 [facility] Negative Control Passed [facility] Positive Control Passed [facility] Comment:For additional infor baylee, please refer tohttp://education.Bookingabus.com/faq/DZF792(This link is being provided for informational/educational purposes only.)THIS TEST WAS PERFORMED AT:[employer] [id number] [place] [address]ESZMOSFJAZMYNE BONNER MD,PHD 03/11/2025 1:46 PM EDT 03/11/2025 2:26 PM EDT us Henrique Whittaker MD LAB BLOOD ORDERABLES Final Result [facility] [address] [place] [phone] * Helicobacter pylori??Antigen, EIA, Stool (03/11/2025 9:30 AM EDT) H pylori Ag Stool SEE NOTE [facility] Comment:HELICOBACTER PYLORI AG, EIA, STOOL Micro Number: [id number] Test Status: Final Specimen Source: Stool Specimen Quality: Adequate H.pylori Ag: Not Detected Antimicrobials, proton pump inhibitors, and bismuth preparations inhibit H. pylori and ingestion up to two weeks prior to testing may cause false negative results. If clinically indicated the test should be repeated on a new specimen obtained two weeks after discontinuing treatment. Reference Range: Not DetectedTHIS TEST WAS PERFORMED AT:[employer] [address] [address]QPDQVCYRIL NASSAR MD Stool Rectal contents / Unknown 03/11/2025 9:30 AM EDT 03/11/2025 2:36 PM EDT us Otilia Quiñones MD LAB BODY FLUIDS AND STOOLS OR DERABLES Final Result [facility] [address] [place] [phone] * POCT Rapid Strep A OSOM (03/09/2025 2:44 PM EDT) Rapid Strep A Screen Negative Negative, None Detected QC Media Lot # [id number] Lot# Expiration Date Swab 03/09/2025 2:44 PM EDT Henrique Whittaker MD POINT OF CARE TEST ENTER/ED IT ORDERABLES Final Result * CT Chest w/ Contrast (03/05/2025 1:32 PM EDT) Anatomical Region Laterality Modality Body, Chest Computed Tomogra phy 03/05/2025 1:32 PM EDT Narrative 03/05/2025 2:05 PM EDT [address] [address] [address] Scan Report Signed Patient: Geovanna Hobbs MR#: [id number] 73 : 1975 Acct:[id number] Age/Sex: 49 / F ADM Date: 03/05/25 Loc: HO.CT Attending Dr: Otilia Quiñones MD Ordering Physician: Otilia Quiñones MD Date of Service: 03/05/25 Procedure(s): CT chest w IV con Accession Number(s): [id number] cc: Otilia Quiñones MD Report Number: [id number]: Total DLP = 90.00 mGy-cm Reason for [...] 03/05/25 1402 DD/ 1332 TD/TT: 03/05/25 1345 Director Of Product Management: Procedure Note Donotuseinterpreter, Image - 03/05/[address] [place] [address] [address] Scan Report Signed Patient: Geovanna HobbsMR#: [id number] 73 : 1975Acct:[id number] Age/Sex: 49 / FADM Date: 03/05/25 Loc: HO.CT Attending Dr: Otilia Quiñones MD Ordering Physician: Otilia Quiñones MD Date of Service: 03/05/25 Procedure(s): CT chest w IV con Accession Number(s): [id number] cc: Otilia Quiñones MD Report Number: [id number]: Total DLP = 90.00 mGy-cm Reason for [...] 03/05/25 1402 DD/ 1332 TD/TT: 03/05/25 1345 Director Of Product Management: us Otilia Quiñones MD IMG CT PROCEDURES Final Resul t * CT Soft Tissue Neck w/ Contrast (02/17/2025 12:31 PM EDT) Anatomical Region Laterality Modality Head, Neck Computed Tomogra phy 02/17/2025 12:3 1 PM EDT Narrative 02/17/2025 1:12 PM EDT [address] [address] [address] Scan Report Signed Patient: Geovanna Hobbs MR#: [id number] 73 : 1975 Acct:[id number] Age/Sex: 49 / F ADM Date: 02/17/25 Loc: HO.ED Attending Dr: Ordering Physician: Tin Leger MD Date of Service: 02/17/25 Procedure(s): CT soft tissue neck w IV con Accession Number(s): [id number] cc: Otilia Quiñones MD; Tin Leger MD Report Number: [id number]: Total DLP = 406.00 mGy-cm Reason for [...] Retropharangeal Space: -Normal. Parapharyngeal Fat Planes: -Normal. Cd Mixer Helper Spaces: -Normal. Anterior Cervical Space: -Normal. Imaged [...] 02/17/25 1309 DD/ 1231 TD/TT: 02/17/25 1250 Director Of Product Management: Procedure Note Donotuseinterpreter, Image - 02/17/[address] [place] [address] [address] Scan Report Signed Patient: Geovanna HobbsMR#: [id number] 73 : 1975Acct:[id number] Age/Sex: 49 / FADM Date: 02/17/25 Loc: .ED Attending Dr: Ordering Physician: Tin Leger MD Date of Service: 02/17/25 Procedure(s): CT soft tissue neck w IV con Accession Number(s): [id number] cc: Otilia Quiñones MD; Tin Leger MD Report Number: [id number]: Total DLP = 406.00 mGy-cm Reason for [...] Retropharangeal Space: -Normal. Parapharyngeal Fat Planes: -Normal. Cd Mixer Helper Spaces: -Normal. Anterior Cervical Space: -Normal. Imaged [...] 02/17/25 1309 DD/ 1231 TD/TT: 02/17/25 1250 Director Of Product Management: [facility] External Provider IMG CT PROCEDURES Edited Result - Final * Hepatitis C Antibody with Reflex to HCV, RNA, Quantitative, Real-Time PCR (10/15/2024 1:34 PM EDT) Hepatitis C Antibody Nonreactive Nonreactive [facility] Comment:Antibodies to HCV no t detected; does not exclude early acuteHCV infection. Blood Venous blood specimen / Unknown 10/15/2024 1:34 PM EDT 10/15/2024 2:19 PM EDT Otilia Quiñones MD LAB BLOOD ORDERABLES Final Re sult Performing Organization Address [facility] Co de Phone Number [facility] [address] [place] [phone] * HIV-1/2 Antigen and Antibodies, Fourth Generation, with Reflexes (10/15/2024 1:34 PM EDT) HIV AB/AG Nonreactive Nonreactive [facility] Comment:HIV-1 p24 Ag and/or HIV-1/HIV-2 Ab not detected.A test result that is nonreactive does not exclude thepossibility of exposure to or infection with HIV-1 and/orHIV-2. Nonreactive results in this assay for individualswith prior exposure to HIV-1 and/or HIV-2 may be due toantigen and antibody levels that are below the limit ofdetection of this assay.The [employer] HIV Ag/Ab Combo assay result andsupplemental assay results should be interpreted inconjunction with the patient's clinical presentation,history and other laboratory results. If the results areinconsistent with clinical evidence, additional testing issuggested to confirm the result. Blood Venous blood specimen / Unknown 10/15/2024 1:34 PM EDT 10/15/2024 2:19 PM EDT Otilia Quiñones MD LAB BLOOD ORDERABLES Final Re sult Performing Organization Address [facility] Co de Phone Number [facility] [address] [place] [phone] * BI Mammogram Diagnostic Tomosynthesis Bilateral (06/17/2024 11:18 AM EST) Anatomical Region Laterality Modality Breast Bilateral Mammography 06/17/2024 11:1 8 AM EST Narrative 06/17/2024 1:06 PM EST [facility] [address] [place] [address] Mammography Report Signed Patient: Geovanna Hobbs MR#: [id number] 73 : 1975 Acct:[id number] Age/Sex: 48 / F ADM Date: 06/17/24 Loc: HO.MAMMO Attending Dr: Yunier Bentley MD Ordering Physician: Yunier Bentley MD Results: 2Beni gn Findings Date of Service: 06/17/24 Follow Up: 1 Year From Orig ina Mammogram Procedure(s): MM tomosynthesis diagnostic BI Accession Number(s): [id number] cc: Otilia Quiñones MD; Yunier Bentley MD [...] 06/17/24 1303 DD/ 1118 TD/TT: 06/17/24 1146 Director Of Product Management: Procedure Note Donotuseinterpreter, Image - 06/17/2024 [facility] [address] [place], [place] [address] Mammography Report Signed Patient: Geovanna HobbsMR#: [id number] 73 : 1975Acct:[id number] Age/Sex: 48 / FADM Date: 06/17/24 Loc: HO.MAMMO Attending Dr: Yunier Bentley MD Ordering Physician: Yunier Bentleyesults: 2Beni gn Findings Date of Service: 06/17/24Follow Up: 1 Year From Orig inal Mammogram Procedure(s): MM tomosynthesis diagnostic BI Accession Number(s): [id number] cc: Otilia Quiñones MD; Yunier Bentley MD [...] 06/17/24 1303 DD/ 1118 TD/TT: 06/17/24 1146 Director Of Product Management: [facility] External Provider IMG BI PROCEDURES Final [...] along with historic and current clinical information. Field Manager : SEE COMMENT [facility] Comment: BK,CT(ASCP) CT screening location: [address] Interpretation/R esult: Negative for intraepithelial lesion or malignancy. [facility] LMP: 06/03/2020 [facility] Prev. BX: NONE [facility] Prev. PAP: NONE GIVEN [facility] Review Field Manager : SEE COMMENT [facility] Comment: SL, CT(ASCP) CT screening location: [address] [address] SOURCE: None given [facility] Statement Of Adequacy: SEE COMMENT [facility] Comment: Satisfactory for evaluation. Endocervical/transformation zone component absent. 08/02/2020 9:01 AM EST Thania HORN LAB PATHOLOGY ORDERABLES Final Result [facility] [address] * HPV mRNA E6/E7 (08/02/2020 9:01 AM EST) HPV nRNA E6/E7 Not Detected Not Detected [facility] Comment: Methodology: County Auditor-Mediated Amplification This assay detects E6/E7 viral messenger RNA (mRNA) from 14 high-risk HPV types (16,18,31,33,35,39,45,51,52,56,58,59,66,68). The analytical performance characteristics of this assay have been determined by [employer]. The modifications have not been cleared or approved by the FDA. This assay has been validated pursuant to the CLIA regulations and is used for clinical purposes. For additional information, please refer to http://education.[employer].com/faq/PYQ891i6 (This link if provided for information/ educational purposes only.) 08/02/2020 9:01 AM EST us Thania Alvarez [facility] LAB BLOOD ORDERABLES Kelly l Result [facility] [address] from Last 3 Months or Most Recently Relevant to Health Maintenance Insurance [facility] C3 DENTAL-[facility] MEDICAID STAND ADULT Care Teams Optomechanical Engineer Relationship Specialty Start Date End Date Otilia Quiñones MD [address] [place] [address] SANDOVAL Barraza [phone] PCP - General Family Medicine 09/15/13
--- OUTSIDE RECORDS SUMMARY | 2025-05-15 23:53 | XMS_ITS | Encounter Summary ---
Author Organization [employer] Address [address] [facility] [address] [place] [address] Care Team Providers Care Life Enrichment Director Name Role Phone Otilia Quiñones MD Primary Care Provider [phone] Encounter Details Date Type Department Care Team (Late st Contact Info) Description 05/15/2025 Orders Only GENERIC EXTERNAL DATA [...] Description 06/11/2025 10:00 AM EST Office Visit [facility] ADULT DENTAL [address] [place] [address] Yoshi Sandoval, DMD [address] [place] [address] documented as of this encounter Procedures Procedure Name Priority Date/Time Associated Diagnosis Comments US ABDOMEN LIMITED Routine 05/15/2025 10 :35 PM EST URINALYSIS, COMPLETE, WITH REFLEX TO CULTURE Routine 05/15/2025 8:52 PM EST CBC WITH AUTO DIFFERENTIAL Routine 05/15/2025 8:52 PM EST MAGNESIUM Routine 05/15/2025 8:52 PM EST LIPASE Routine 05/15/2025 8:52 PM EST COMPREHENSIVE METABOLIC PANEL Routine 05/15/2025 8:52 PM EST documented in this encounter Results * US Abdomen Limited (05/15/2025 10:35 PM EST) Anatomical Region Laterality Modality Abdomen Ultrasound 05/15/2025 10:3 5 PM EST Narrative 05/15/2025 10:36 PM EST [address] [address] Ultrasound Report Signed Patient: Geovanna Hobbs MR#: [id number] 73 : 1975 Acct:[id number] Age/Sex: 49 / F ADM Date: 05/15/25 Loc: HO.ED Attending Dr: Ordering Physician: Kyleigh Wolf PA-C Date of Service: 05/15/25 Procedure(s): US abdomen limited Accession Number(s): [id number] cc: Otilia Quiñones MD; Kyleigh Wolf PA-C Reason for Exam: pain, gallbladder, CBD CLINICAL HISTORY: pain, gallbladder, CBD US abdomen limited Comparison: US/HI/SR - US ABDOMEN LIMITED - 09/17/2024 02:01 [...] in OV> 05/15/252234 DD/ 34 TD/TT: 05/15/252234 Osteology Teacher: Procedure Note Donotuseinterpreter, Image - 05/15/2025 [place] [address] Ultrasound Report Signed Patient: Geovanna HobbsMR#: [id number] 74 : 1975Acct:[id number] Age/Sex: 49 / FADM Date: 05/15/25 Loc: HO.ED Attending Dr: Ordering Physician: Kyleigh Wolf PA-C Date of Service: 05/15/25 Procedure(s): US abdomen limited Accession Number(s): [id number] cc: Otilia Quiñones MD; Kyleigh Wolf PA-C Reason for Exam: pain, gallbladder, CBD CLINICAL HISTORY: pain, gallbladder, CBD US abdomen limited Comparison: US/HI/SR - US ABDOMEN LIMITED - 09/17/2024 02:01 [...] MD Signed By: <Electronically signed by Roderick aBr MD in OV> 05/15/252234 DD/ 34 TD/TT: 05/15/252234 Osteology Teacher: us [facility] External Provider IMG US PROCEDURES Edited Result - Final * Lipase (05/15/2025 8:52 PM EST) Pathologist [facility] Lipase 72 8 - 78 U/L [facility] 05/15/2025 8:52 PM EST 05/15/2025 8:55 PM EST Generic External Data Provider LAB BLOOD ORDERAB LES Final Result Performing Organization Address [facility] Co de Phone Number [facility] [address] [place] [phone] * Magnesium (05/15/2025 8:52 PM EST) Pathologist [facility] Magnesium 1.8 1.6 - 2.6 mg/dL [facility] 05/15/2025 8:52 PM EST 05/15/2025 8:55 PM EST Generic External Data Provider LAB BLOOD ORDERAB LES Final Result Performing Organization Address [facility] Co de Phone Number [facility] [address] [place] [phone] * (ABNORMAL) Comprehensive Metabolic Panel (05/15/2025 8:52 PM EST) Pathologist [facility] Sodium 139 135 - 145 mmol/L [facility] Potassium 3.7 3.3 - 5.1 mmol/L [facility] Chloride 104 96 - 108 mmol/L [facility] Carbon Dioxide 28 22 - 29 mmol/L [facility] Anion Gap 11(L) 12 - 20 [facility] Urea Nitrogen (BUN) 8(L) 9 - 16 mg/dL [facility] Creatinine, Serum 0.51 0.5 - 1.4 mg/dL [facility] Creatinine Clr Calc Pharmacy 116.5 [facility] Comment:Provided height and weight: 162.56 cm,64.6 kg.eGFR (calculated from the MDRD study equation) and eCrCl(calculated from the Cockcroft-Gault equation) are based ondifferent parameters and may not yield comparable results.If eCrCl result is absurd, please check patient'sheight/weight. Estimated Glomerular Filt Rate >60 [facility] Comment:Chronic Kidney Disea se: Estimated GFR < 60 mL/min/1.12l2Cpojgu Kidney Disease: Estimated GFR < 15 mL/min/1.73m2 Glucose 87 60 - 115 mg/dL [facility] Calcium 9.9 8.4 - 10.2 mg/dL [facility] Bilirubin, Total 0.8 0.0 - 1.0 mg/dL [facility] Aspartate Amino Transferase 71(H) 5 - 31 U/L [facility] Alanine Aminotransferase 84(H) 0 - 31 U/L [facility] Total Protein 7.5 6.5 - 8.0 g/dL [facility] Albumin Level 4.3 3.5 - 5.0 g/dL [facility] Alkaline Phosphatase 289(H) 39 - 117 U/L [facility] 05/15/2025 8:52 PM EST 05/15/2025 8:55 PM EST us Generic External Data Provider LAB BLOOD ORDERAB LES Final Result [facility] [address] [place] [address] [phone] * (ABNORMAL) Urinalysis, Complete, with Reflex to Culture (05/15/2025 8:52 PM EST) Color Urine [place](A) [facility] Appearance Urine Clear [facility] PH 6.0 5.0 - 9.0 [facility] Glucose Urine UA Negative Negative mg/dL [facility] Urine Blood Negative Negative [facility] Specific [place] - Urine 1.020 1.005 - 1.025 [facility] Urine Protein Negative Neg-Trace mg/dL [facility] Urine Ketones Negative Negative mg/dL [facility] Nitrite Urine Positive(A) Negative [facility] Leukocyte Esterase Urine Small (1+)(A) Negative [facility] RBC Urine 3-5(A) 0 - 2 /HPF [facility] Urine WBC 0-5 0 - 5 /HPF [facility] Urine Squamous Epithelial Cell 6-10 0 - 2 /HPF [facility] CALCIUM OXALATE CRYSTAL, UR Present [facility] Urine Bacteria 1+ None Seen [facility] Hyaline Casts, Urine 0-2 0 - 2 /LPF [facility] 05/15/2025 8:52 PM EST 05/15/2025 8:55 PM EST Narrative [facility] - 05/15/2025 9:17 PM EST [id number], Clean Catch us Generic External Data Provider LAB URINE ORDERAB LES Final Result [facility] [address] [place] [phone] * (ABNORMAL) CBC auto differential (05/15/2025 8:52 PM EST) White Blood Count 4.4(L) 4.8 - 10.8 X10*3/uL [facility] Red Blood Count 4.70 4.20 - 5.50 X10*6/uL [facility] Hemoglobin 10.9(L) 12.0 - 16.0 g/dl [facility] Hematocrit 34.8(L) 37.0 - 47.0 % [facility] Mean Corpuscular Volume 74.0(L) 80.0 - 98.0 fL [facility] Mean Corpuscular Hemoglobin 23.2(L) 27.0 - 33.0 pg [facility] Mean Corpuscular HGB Conc 31.3 31.0 - 35.0 g/dl [facility] Red Cell Distribution Width 13.6 11.0 - 16.0 % [facility] Platelet Count 234 160 - 400 X10*3/uL [facility] Mean Platelet Volume 11.7 9.4 - 12.3 fL [facility] Neutrophils Percent Auto 62.2 45 - 73 % [facility] Imm Gran Pct Auto 0.2 0.0 - 0.4 % [facility] Lymphocytes Percent Auto 23.1 20 - 40 % [facility] Monocytes Percent Auto 9.5 2 - 11 % [facility] Eosinophils Percent Auto 4.5(H) 0 - 4 % [facility] Basophils Percent Auto 0.5 0 - 2 % [facility] NRBC Pct Auto 0.0 0.0 - 0.2 /100WBC [facility] Neutrophils Absolute Auto 2.7 2.0 - 8.3 x10*3/uL [facility] Imm Gran Abs Auto 0.01 0.00 - 0.03 X10*3/uL [facility] Lymphocytes Absolute Auto 1.0(L) 1.2 - 4.9 X10*3/uL [facility] Monocytes Absolute Auto 0.4 0.1 - 1.2 X10*3/uL [facility] Eosinophils Absolute Auto 0.2 0.0 - 0.4 X10*3/uL [facility] Basophils Absolute Auto 0.0 0.0 - 0.2 X10*3/uL [facility] NRBC Abs Auto 0.000 0.0 - 0.012 X10*3/uL [facility] 05/15/2025 8:52 PM EST 05/15/2025 8:55 PM EST us Generic External Data Provider LAB BLOOD ORDERAB LES Final Result [facility] [address] [place] [address] [phone] documented in this encounter Visit Diagnoses Not on filedocumented in this encounter Additional Health Concerns Assessment Noted Time PHQ-9 Depression Total Score: 0 07/03/19 24 10:45 AM EST documented as of this encounter Care Teams Life Enrichment Director Relationship Specialty Start Date End Date Otilia Quiñones MD [address] [place] [phone] PCP - General Family Medicine 09/15/13 documented as of this encounter
--- OUTSIDE RECORDS SUMMARY | 2025-05-15 23:53 | XMS_ITS | Encounter Summary ---
Author Organization [employer] Address [address] [place] [address] [address] [place] [address] Care Team Providers Care Animal Rides Manager Name Role Phone Otilia Quiñones MD Primary Care Provider [phone] Reason for Visit * Reason Comments Med Refill Encounter Details Date Type Department Care Team ([facility] st Contact Info) Description 11/22/2023 Refill [facility] [address] [place], [place] [phone] Otilia Quiñones MD [address] [place], [place] [phone] Social History Tobacco Use Types Packs/Day Years [...] Visit [facility] ADULT DENTAL [address] [place] [address] Yoshi Sandoval, DMD [address] [place] [address] documented as of this encounter Visit Diagnoses Not on filedocumented in this encounter Additional Health Concerns Assessment Noted Time PHQ-9 Depression Total Score: 0 07/03/19 24 10:45 AM EST documented as of this encounter Care Teams Animal Rides Manager Relationship Specialty Start Date End Date Otilia Quiñones MD [address] [place] [address] PCP - General Family Medicine 09/15/13 documented as of this encounter
--- OUTSIDE RECORDS SUMMARY | 2025-05-15 23:53 | XMS_ITS | Encounter Summary ---
Author Organization [employer] Address [address] [place] [address] [address] [place] [address] Care Team Providers Care Acid Purifier Name Role Phone Otilia Quiñones MD Primary Care Provider [phone] Encounter Details Date Type Department Care Team (Latest Contact Info) Description 08/11/2020 Abstract [facility] CONVERSIONS Dental, Provider, DDS Social [...] Description 06/11/2025 10:00 AM EST Office Visit [facility] ADULT DENT[facility] [address] [place] [address] Yoshi Sandoval, DMD [address] [place] [address] documented as of this encounter Visit Diagnoses Not on filedocumented in this encounter Care Teams Acid Purifier Relationship Specialty Start Date End Date Otilia Quiñones MD [address] [place] [address] PCP - General Family Medicine 09/15/13 documented as of this encounter
[2025-05-16] MEDS: Lactated Ringers 1,000 ML 999 ML IV (00:30)
[2025-05-16] MEDS: iohexoL 350 MG/ML 100 ML INFUS..BTL 85 ML IV (00:38)
[2025-05-16 01:31] LABS: INTERNATIONAL NORM RATIO 1.1 (0.9-1.1); Prothrombin Time 13.5 SEC (11.2-13.5)
[2025-05-16 02:34] VITALS: BP 135/65; PULSE 65; RESP 16; TEMP 36.8; O2SAT 100
== END 2025-05-16 02:34 | disposition home or self-care (01) ==
PROVIDERS: Physician Assistant Medical; Emergency Provider Emergency Medicine; PCP Pediatrics
DX: R74.01 Elevation of levels of liver transaminase levels (principal); R10.8A3 Suprapubic tenderness; T38.2X5A Adverse effect of antithyroid drugs, initial encounter; Y92.9 Unspecified place or not applicable; N39.0 Urinary tract infection, site not specified; R10.9 Unspecified abdominal pain; R11.10 Vomiting, unspecified
CPT/HCPCS: 36415; 74177; 76705; 80053; 81001; 81003; 83690; 83735; 85025; 85610; 86308; 87086; 96360; 96361; 99284; 99285; J7120; Q9967

== ENCOUNTER → 2025-05-15 20:38 | Outpatient (BNV) | payer MEDICAID, SELFPAY | PROVIDERS: Emergency Provider Emergency Medicine; PCP Pediatrics; Visit Provider Radiology Diagnostic Radiology | DX: R10.9 Unspecified abdominal pain (principal) | CPT/HCPCS: 76705 ==

== ENCOUNTER → 2025-05-16 00:12 | Outpatient (BNV) | payer MEDICAID, SELFPAY | PROVIDERS: Emergency Provider Emergency Medicine; PCP Pediatrics; Visit Provider Radiology Diagnostic Radiology | DX: N83.291 Other ovarian cyst, right side (principal); K82.8 Other specified diseases of gallbladder | CPT/HCPCS: 74177 ==